=== PATIENT | male | born 1955 | race Caucasian/White ===

== ENCOUNTER 2019-03-07 00:22 | Day surgery (SDC) | payer OTHER, SELFPAY ==
[2019-03-01 12:51] VITALS: BMI 33.8
[2019-03-07 06:34] VITALS: BP 139/84; PULSE 80; RESP 16; TEMP 37.1; O2SAT 97; BMI 33.7
[2019-03-07] MEDS: LACTATED RINGERS 1,000 ML 150 ML IV CONT (06:58)
[2019-03-07 06:59] LABS: Glucose Point of Care 110 (65-105)
--- NOTE | 2019-03-07 07:21 | WPDANESEPPF ---
Anes - Initial Pre Proc Eval Procedure: Operation Date: 03/07/19 07:30 Proposed Procedures p Esophagogastroduodenoscopy - David Rehman MD Date/Time: 03/07/19 07:21 Surgeon: David Rehman MD Pre Op Diagnosis: dysphagia Patient Data Age: 63 Gender: M Height: 5 ft 10 in Weight: 106.6 kg Last Vital Signs Temp 98.7 F 03/07/19 06:34 Pulse 80 03/07/19 06:34 Resp 16 03/07/19 06:34 BP 139/84 03/07/19 06:34 Pulse Ox 97 03/07/19 06:34 Allergies Allergy/AdvReac Type Severity Reaction Status Date / Time animal dander Allergy Unknown Sneezing Verified 03/07/19 06:31 atenolol Allergy Unknown cough Verified 03/07/19 06:31 codeine Allergy Unknown headache Verified 03/07/19 06:31 morphine AdvReac Unknown Headache Verified 03/07/19 06:31 Home Medications Medication Instructions Recorded Confirmed Type tadalafil 5 mg tablet 5 mg PO DAILY #90 tablet 01/02/19 03/01/19 Rx testosterone cypionate 200 mg/mL 200 mg IM MONTHLY #1 ml 01/11/19 03/01/19 Rx intramuscular oil amlodipine 5 mg tablet 5 mg PO DAILY 02/07/19 03/07/19 History fenofibrate 160 mg tablet 160 mg PO DAILY 02/07/19 03/07/19 History irbesartan 300 1 tablet PO DAILY 02/07/19 03/07/19 History mg-hydrochlorothiazide 12.5 mg tablet apple cider vinegar 600 mg capsule 600 mg PO DAILY 02/14/19 03/07/19 History aspirin 81 mg tablet,delayed 81 mg PO DAILY 02/14/19 03/07/19 History release budesonide-formoterol HFA 160 2 inhalation INHALATION ONCE 02/14/19 03/07/19 History mcg-4.5 mcg/actuation aerosol inhaler esomeprazole magnesium 20 mg 20 mg PO DAILY 02/14/19 03/07/19 History capsule,delayed release [id number]-[id number] 200 mcg-lycop 1 tablet PO DAILY 02/14/19 03/01/19 History 175 mcg-lutei 250 mcg-herb 178 tablet omega-3 fatty acids-fish oil 360 2 cap PO BID 02/14/19 03/01/19 History mg-1,200 mg capsule metformin 500 mg tablet,extended 500 mg PO DAILY #90 tablet 02/17/19 03/01/19 Rx release 24 hr fluticasone propionate [Flonase 1 spray INTRANASAL BID 03/01/19 03/07/19 History Allergy Relief] Laboratory Tests 03/07/19 06:54 POC Capillary Glucose 110 mg/dl mg/dl (65-105) Patient hx anesthesia problems: none Family hx anesthesia problems: none PMFSH Past Medical History Medical History (Updated 03/07/19 @ 07:19 by Chris Serrano MD) Biceps muscle tear (~09/2015) Carpal tunnel syndrome (~04/2016) Diabetes Essential (primary) hypertension Obstructive sleep apnea (adult) (pediatric) Surgical History Surgical History (Updated 02/14/19 @ 11:16 by Jean Claude Kimble MD) H/O hernia repair History of knee surgery (~04/2018) Right knee arthroscopy in 2019 for meniscal tear Social History Social History Smoking status: Former smoker Smoking end date: 07/29/17 Additional smoking assessment comments: smoked for 40 years endinfg in 2018 Alcohol intake: current Anes - Eval Final PreProcedure Day of Procedure 03/07/19 07:21 Patient weight: obese Heart: regular rate and rhythm Lungs: clear to auscultation Airway: Mallampati scale class II Neurological: alert and oriented Last oral intake: >/= 8 hours ASA classification: III Emergent: no Anesthetic plan: proceed Anesthesia type and monitoring: general GIVS and standard monitoring Informed Consent: The patient's anesthetic plan and its attendant risks and benefits were discussed with the patient/family/POA. Questions were solicited and answers provided to the satisfaction of the patient/family/POA.
[2019-03-07] MEDS: BENZOCAINE (*SP) 60 ML SPRAY CAN (HURRICAINE) 1 SPRAY MUCOUS MEM (07:32)
[2019-03-07 07:47] VITALS: BP 123/77; PULSE 87; RESP 18; O2SAT 95
--- NOTE | 2019-03-07 07:47 | WPDGICN ---
Assessment and Plan Additional Plan This is a 63-year-old white male patient seen in evaluation at the request of Dr. Lee. Patient reports difficulty swallowing for several months. He states food will catch in the right side of his throat. Pills will often have to be regurgitated rather than swallowed. Patient denies any bleeding or weight loss. Symptoms briefly improved after antibiotics for an infected tooth. He states that it is not a consistent problem in occurs intermittently. Patient notices a modest discomfort on the right side of his throat. Family history is significant for colon polyps. Patient had a colonoscopy 1 year ago. And then again 10 years ago. He has never had an endoscopy previously. Past medical history is significant for diabetes hypertension. Medications include metformin, amlodipine, hydrochlorothiazide, Symbicort, Nexium, Flonase, fish oil. Physical exam reveals him to be alert. Oriented x3. Vital signs stable. HEENT exam unremarkable. Lungs are clear to auscultation and percussion. Heart is without murmur or extra sounds. Abdominal exam bowel sounds are present soft nontender with no hepatosplenomegaly. Rectal exam is deferred today Impression 1. Dysphagia. Plan is to proceed with EGD to assess difficulty swallowing. GI Consult Note Consult date/time: 03/07/19 07:47 HPI: Nabil Monson is a 63 year old male [facility] Past Medical History Medical History (Updated 03/07/19 @ 07:19 by Chris Serrano MD) Biceps muscle tear (~09/2015) Carpal tunnel syndrome (~04/2016) Diabetes Essential (primary) hypertension Obstructive sleep apnea (adult) (pediatric) Surgical History Surgical History (Updated 02/14/19 @ 11:16 by Jean Claude Kimble MD) H/O hernia repair History of knee surgery (~04/2018) Right knee arthroscopy in 2019 for meniscal tear Social History Social History Smoking status: Former smoker Smoking end date: 07/29/17 Additional smoking assessment comments: smoked for 40 years endinfg in 2018 Alcohol intake: current Meds Home Medications and Allergies Home Medications Medication Instructions Recorded Confirmed Type tadalafil 5 mg tablet 5 mg PO DAILY #90 tablet 01/02/19 03/01/19 Rx testosterone cypionate 200 mg/mL 200 mg IM MONTHLY #1 ml 01/11/19 03/01/19 Rx intramuscular oil amlodipine 5 mg tablet 5 mg PO DAILY 02/07/19 03/07/19 History fenofibrate 160 mg tablet 160 mg PO DAILY 02/07/19 03/07/19 History irbesartan 300 1 tablet PO DAILY 02/07/19 03/07/19 History mg-hydrochlorothiazide 12.5 mg tablet apple cider vinegar 600 mg capsule 600 mg PO DAILY 02/14/19 03/07/19 History aspirin 81 mg tablet,delayed 81 mg PO DAILY 02/14/19 03/07/19 History release budesonide-formoterol HFA 160 2 inhalation INHALATION ONCE 02/14/19 03/07/19 History mcg-4.5 mcg/actuation aerosol inhaler esomeprazole magnesium 20 mg 20 mg PO DAILY 02/14/19 03/07/19 History capsule,delayed release [id number]-oyr-urhbo 200 mcg-lycop 1 tablet PO DAILY 02/14/19 03/01/19 History 175 mcg-lutei 250 mcg-herb 178 tablet omega-3 fatty acids-fish oil 360 2 cap PO BID 02/14/19 03/01/19 History mg-1,200 mg capsule metformin 500 mg tablet,extended 500 mg PO DAILY #90 tablet 02/17/19 03/01/19 Rx release 24 hr fluticasone propionate [Flonase 1 spray INTRANASAL BID 03/01/19 03/07/19 History Allergy Relief] Allergies Allergy/AdvReac Type Severity Reaction Status Date / Time animal dander Allergy Unknown Sneezing Verified 03/07/19 06:31 atenolol Allergy Unknown cough Verified 03/07/19 06:31 codeine Allergy Unknown headache Verified 03/07/19 06:31 morphine AdvReac Unknown Headache Verified 03/07/19 06:31 Vital Signs Vital Signs - 24 hr 03/07/19 06:34 Temperature 37.1 C Pulse Rate 80 Respiratory Rate 16 Blood Pressure 139/84 Pulse Oximetry 97
[2019-03-07 07:57] VITALS: BP 113/60; PULSE 85; RESP 15; O2SAT 93
[2019-03-07 08:07] VITALS: BP 110/65; PULSE 79; RESP 14; O2SAT 95
[2019-03-07 08:48] LABS: Hematocrit 50.3 % (42.0-52.0); Mean Corpuscular HGB Conc 31.8 g/dl (32-36); Mean Corpuscular Hemoglobin 28.7 pg (26-34); Mean Corpuscular Volume 90.1 fl (80-100); Mean Platelet Volume 9.9 fl (7.4-10.4); Platelet Count Result 231 k/mm3 (150-375); Red Blood Count 5.58 M/mm3 (4.6-6.20); Red Cell Distribution Width 14.5 % (11.5-14.5)
--- NOTE | 2019-03-07 08:53 | SUR.PHASEII ---
Script for CT given to patient
[2019-03-07 09:01] LABS: Alanine Aminotransferase 39 U/L (4-50); Albumin Level 3.9 g/dL (3.5-5.1); Alkaline Phosphatase 46 U/L (38-126); Aspartate Amino Transferase 30 U/L (17-59); Bilirubin,Total 0.4 mg/dL (0.2-1.3); Blood Urea Nitrogen 26 mg/dL (9-20); Carbon Dioxide 24 mmol/L (22-30); Chloride 101 mmol/L (98-107); Estimated CRCL calculation 83 ml/min; Estimated Glomerular Filt Rate > 60; Glucose 117 mg/dL (75-110); Sodium 136 mmol/L (137-145)
== END 2019-03-07 08:53 | disposition home or self-care (01) ==
PROVIDERS: PCP Family Medicine; Visit Provider Internal Medicine Gastroenterology
PROC: 0DJ08ZZ Inspection of Upper Intestinal Tract, Via Natural or Artificial Opening Endoscopic (ICD-10-PCS; CPT 43235; principal; 2019-03-07 07:30)
DX: C15.5 Malignant neoplasm of lower third of esophagus (principal); I10 Essential (primary) hypertension; E11.9 Type 2 diabetes mellitus without complications; G47.33 Obstructive sleep apnea (adult) (pediatric); Z79.84 Long term (current) use of oral hypoglycemic drugs; Z87.891 Personal history of nicotine dependence; Z79.82 Long term (current) use of aspirin; E66.9 Obesity, unspecified; Z68.33 Body mass index [BMI] 33.0-33.9, adult
CPT/HCPCS: 43239; 36415; 80053; 85027; 88305; J2704; J7120

== ENCOUNTER 2019-03-14 14:33 | Outpatient (CLI) | payer OTHER, SELFPAY ==
--- NOTE | ~2019-03-14 | CT_ITS ---
EXAMINATION: CT chest abdomen w con INDICATION: Ulcerated 4 x 3 cm mass of the lower esophagus on recent endoscopy demonstrated to be poo rly differentiated adenocarcinoma at biopsy TECHNIQUE: Computed tomographic images of the chest and abdomen were obtained after the administratio n of 100 cc of Omnipaque 350 intravenous contrast. The dose-length product (DLP) was 924.33 mGy-cm. A utomated exposure control and iterative reconstruction technique were employed. COMPARISON: 04/12/2018 FINDINGS: CHEST: There is mild dependent atelectasis. The lungs are free of focal airspace opacities. Mild emph ysema is noted. There is mild wall thickening of the distal esophagus which likely corresponds to the known malignancy. No pathologically enlarged thoracic lymph nodes are identified. The heart size is normal. Calcified coronary artery atherosclerosis is noted. There is mild thoracic spondylosis. ABDOMEN: The liver, spleen, pancreas, gallbladder, and adrenal glands are normal. The kidneys are unr emarkable. There is a diverticulum of the second portion of the duodenum. There are no pathologically enlarged abdominal lymph nodes. There is calcified atherosclerosis of the aorta and many of the othe r arteries. There is no free intraperitoneal gas or evidence of bowel obstruction. IMPRESSION: 1. Mild wall thickening of the distal esophagus, corresponding to biopsy-proven malignancy. No eviden ce of metastatic disease. Reviewed, dictated and finalized at location A. [facility] [employer] SPECIALIST IMPRESSION: 1. Mild wall thickening of the distal esophagus, corresponding to biopsy-proven malignancy. No evidence of metastatic disease.
== END 2019-03-14 14:34 | disposition home or self-care (01) ==
PROVIDERS: PCP Family Medicine; Visit Provider Internal Medicine Gastroenterology
DX: K22.9 Disease of esophagus, unspecified (principal)
CPT/HCPCS: 71260; 74160; Q9967

== ENCOUNTER 2019-06-14 00:40 | Day surgery (SDC) | payer OTHER, SELFPAY ==
[2019-06-08 10:10] VITALS: BMI 31.6
--- NOTE | 2019-06-13 17:25 | WPDANESEPP ---
Anes - Eval Pre Procedure Procedure: Operation Date: 06/14/19 07:30 Proposed Procedures p Esophagogastroduodenoscopy - David Rehman MD Date/Time: 06/13/19 17:25 Surgeon: Sherie Preop Diagnosis: Esophageal CA Pre Op Diagnosis: esophageal CA Patient Data Age: 63 Gender: M Height: 5 ft 10 in Weight: 100 kg Allergies Allergy/AdvReac Type Severity Reaction Status Date / Time animal dander Allergy Unknown Sneezing Verified 06/08/19 10:24 codeine Allergy Unknown headache Verified 06/08/19 10:24 AMADEO Inhibitors AdvReac Mild Cough Verified 06/08/19 10:24 morphine AdvReac Unknown Headache Verified 06/08/19 10:24 Home Medications Medication Instructions Recorded Confirmed Type tadalafil 5 mg tablet 5 mg PO DAILY #90 tablet 01/02/19 06/08/19 Rx fenofibrate 160 mg tablet 160 mg PO DAILY 02/07/19 06/08/19 History esomeprazole magnesium 20 mg 20 mg PO DAILY 02/14/19 06/08/19 History capsule,delayed release metformin 500 mg tablet,extended 500 mg PO DAILY #90 tablet 02/17/19 06/08/19 Rx release 24 hr fluticasone propionate [Flonase 1 spray INTRANASAL BID 03/01/19 06/08/19 History Allergy Relief] ondansetron 8 mg disintegrating 8 mg PO Q8H 04/26/19 06/08/19 History tablet prochlorperazine maleate 10 mg 10 mg PO Q6H PRN 04/26/19 06/08/19 History tablet omega 2-jya-rqt-fish oil [Fish Oil] 1 cap PO DAILY 06/08/19 06/08/19 History Patient hx anesthesia problems: none Family hx anesthesia problems: none PMFSH Past Medical History Medical History Biceps muscle tear (~09/2015) BPH associated with nocturia Carpal tunnel syndrome (~04/2016) Diabetes Diabetes mellitus Dysphagia Esophageal cancer Essential (primary) hypertension Mixed hyperlipidemia Obstructive sleep apnea (adult) (pediatric) Port-A-Cath in place Tobacco use Surgical History Surgical History H/O hernia repair History of knee surgery (~04/2018) Right knee arthroscopy in 2019 for meniscal tear Family History Family History Sibling Family history of rheumatoid arthritis Heart disease Grandparent Diabetes mellitus Father Hypertension Cancer Social History Social History Smoking status: Former smoker Smoking end date: 07/29/17 Additional smoking assessment comments: smoked for 40 years endinfg in 2018 Alcohol intake: current Exam Day of Procedure 06/13/19 17:25
[2019-06-14] MEDS: LACTATED RINGERS 1,000 ML 150 ML IV CONT (06:32)
[2019-06-14 06:40] VITALS: BP 152/93; PULSE 81; RESP 16; TEMP 36.4; O2SAT 95; BMI 31.0
[2019-06-14 06:52] LABS: Glucose Point of Care 126 (65-105)
--- NOTE | 2019-06-14 07:09 | WPDANESEFPP ---
Anes - Eval Final PreProcedure Day of Procedure 06/14/19 07:09 Patient weight: obese Heart: regular rate and rhythm Lungs: decreased breath sounds Airway: Mallampati scale class II Neurological: alert and oriented Last oral intake: >/= 8 hours ASA classification: IV Emergent: no Anesthetic plan: proceed Anesthesia type and monitoring: general GIVS and standard monitoring Informed Consent: The patient's anesthetic plan and its attendant risks and benefits were discussed with the patient/family/POA. Questions were solicited and answers provided to the satisfaction of the patient/family/POA.
--- NOTE | 2019-06-14 07:55 | WPDGICN ---
Assessment and Plan Assessment and plan (1) Esophageal cancer, stage IV: Code(s): C15.9 - Malignant neoplasm of esophagus, unspecified Status: Acute Assessment and Plan: Patient now status post several rounds of chemotherapy and radiation therapy. Patient has current complaints of recurrent dysphagia. After history unknown stage IV adenocarcinoma distal esophagus. Plan is for follow-up EGD at this time continued follow-up with Oncology and Dr. Manolo Baptiste. advise further recommendations will be given after endoscopy. (2) Dysphagia: Qualifiers: Dysphagia type: other dysphagia Qualified Code(s): R13.19 - Other dysphagia Code(s): R13.10 - Dysphagia, unspecified Status: Acute GI Consult Note Consult date/time: 06/14/19 07:55 HPI: Nabil Monson is a 63 year old male Seen in evaluation at the request of Dr.G. Baptiste. Patient also followed by . Patient was identified as having adenocarcinoma the distal esophagus. Recently found to have bone metastases. He has received several cycles of chemotherapy and radiation therapy. Recently has had some difficulty swallowing with food catching the mid substernal portion of the chest. He denies any ongoing heartburn or reflux. At the current time he continues to take Nexium 40 mg p.o. daily. He states he has lost 20-30 lb. Initial diagnosis was March 07, 2019. Review of Systems Review of Systems: All systems reviewed & are unremarkable except as noted in HPI and below PMFSH Past Medical History Medical History Biceps muscle tear (~09/2015) BPH associated with nocturia Carpal tunnel syndrome (~04/2016) Diabetes Diabetes mellitus Dysphagia Esophageal cancer Essential (primary) hypertension Mixed hyperlipidemia Obstructive sleep apnea (adult) (pediatric) Port-A-Cath in place Tobacco use Surgical History Surgical History H/O hernia repair History of knee surgery (~04/2018) Right knee arthroscopy in 2019 for meniscal tear Family History Family History Sibling Family history of rheumatoid arthritis Heart disease Grandparent Diabetes mellitus Father Hypertension Cancer Social History Social History Smoking status: Former smoker Smoking end date: 07/29/17 Additional smoking assessment comments: smoked for 40 years endinfg in 2018 Alcohol intake: current Meds Home Medications and Allergies Home Medications Medication Instructions Recorded Confirmed Type tadalafil 5 mg tablet 5 mg PO DAILY #90 tablet 01/02/19 06/08/19 Rx fenofibrate 160 mg tablet 160 mg PO DAILY 02/07/19 06/08/19 History esomeprazole magnesium 20 mg 20 mg PO DAILY 02/14/19 06/08/19 History capsule,delayed release metformin 500 mg tablet,extended 500 mg PO DAILY #90 tablet 02/17/19 06/08/19 Rx release 24 hr fluticasone propionate [Flonase 1 spray INTRANASAL BID 03/01/19 06/08/19 History Allergy Relief] ondansetron 8 mg disintegrating 8 mg PO Q8H 04/26/19 06/08/19 History tablet prochlorperazine maleate 10 mg 10 mg PO Q6H PRN 04/26/19 06/08/19 History tablet omega 1-chr-cnf-fish oil [Fish Oil] 1 cap PO DAILY 06/08/19 06/08/19 History apixaban [Eliquis] mg 06/14/19 History Allergies Allergy/AdvReac Type Severity Reaction Status Date / Time animal dander Allergy Unknown Sneezing Verified 06/14/19 06:19 codeine Allergy Unknown headache Verified 06/14/19 06:19 AMADEO Inhibitors AdvReac Mild Cough Verified 06/14/19 06:19 morphine AdvReac Unknown Headache Verified 06/14/19 06:19 Vital Signs Vital Signs - 24 hr 06/14/19 06:40 Temperature 36.4 C Pulse Rate 81 Respiratory Rate 16 Blood Pressure 152/93 H Pulse Oximetry 95 Exam Narrative: Exam Narrative: Physical exam reveals patient be alert. Vital signs stable. HEENT exam unremarkable.
[2019-06-14 07:58] VITALS: BP 140/81; PULSE 78; RESP 14; O2SAT 93
[2019-06-14 08:08] VITALS: BP 137/79; PULSE 83; RESP 20; O2SAT 96
[2019-06-14 08:18] VITALS: BP 122/84; PULSE 73; RESP 18; O2SAT 97
== END 2019-06-14 08:39 | disposition home or self-care (01) ==
PROVIDERS: PCP Family Medicine; Visit Provider Internal Medicine Gastroenterology
PROC: 0DJ08ZZ Inspection of Upper Intestinal Tract, Via Natural or Artificial Opening Endoscopic (ICD-10-PCS; CPT 43235; principal; 2019-06-14 07:30)
DX: K22.2 Esophageal obstruction (principal); K22.10 Ulcer of esophagus without bleeding; K44.9 Diaphragmatic hernia without obstruction or gangrene; Z85.01 Personal history of malignant neoplasm of esophagus; N40.1 Benign prostatic hyperplasia with lower urinary tract symptoms; R35.1 Nocturia; E11.9 Type 2 diabetes mellitus without complications; I10 Essential (primary) hypertension; E78.2 Mixed hyperlipidemia; G47.33 Obstructive sleep apnea (adult) (pediatric); Z87.891 Personal history of nicotine dependence; Z79.84 Long term (current) use of oral hypoglycemic drugs; Z79.01 Long term (current) use of anticoagulants; Z92.21 Personal history of antineoplastic chemotherapy; Z92.3 Personal history of irradiation
CPT/HCPCS: 43450; 43239; 88305; J2704; J7120

== ENCOUNTER 2019-08-21 00:49 | Outpatient (CLI) | payer OTHER, SELFPAY ==
[2019-08-21 20:03] LABS: SARS-CoV-2 RNA PCR Negative
== END 2019-08-21 00:50 | disposition home or self-care (01) ==
LOC: ANHCOVIDDT 00:49
PROVIDERS: PCP Family Medicine; Visit Provider Internal Medicine Gastroenterology
DX: Z01.812 Encounter for preprocedural laboratory examination (principal); Z11.59 Encounter for screening for other viral diseases
CPT/HCPCS: 87635; C9803; U0003

== ENCOUNTER 2019-08-23 02:15 | Day surgery (SDC) | payer OTHER, SELFPAY ==
[2019-08-23 07:38] VITALS: BP 142/95; PULSE 76; RESP 18; TEMP 36.2; O2SAT 98; BMI 29.9
[2019-08-23 07:58] LABS: Glucose Point of Care 106 (65-105)
[2019-08-23] MEDS: LACTATED RINGERS 1,000 ML 150 ML IV CONT (08:08)
--- NOTE | 2019-08-23 08:22 | WPDGICN ---
Assessment and Plan Assessment and plan (1) Dysphagia: Qualifiers: Dysphagia type: other dysphagia Qualified Code(s): R13.19 - Other dysphagia Code(s): R13.10 - Dysphagia, unspecified Status: Acute Assessment and Plan: Patient has increasing difficulty swallowing. Plans for EGD to assess whether this is from tumor or scar tissue. Plans for dilatation. I have discussed with patient the potential for a ventral esophageal stent and/or PEG tube placement. Patient is not amenable to this at the present time. Plan is for soft diet till EGD can be accomplished. Continued oncology follow-up is advised as well. (2) Esophageal cancer, stage IV: Code(s): C15.9 - Malignant neoplasm of esophagus, unspecified Status: Acute GI Consult Note Consult date/time: 08/23/19 08:22 HPI: Nabil Monson is a 63 year old male seen in evaluation at the request of Dr Baptiste. patient has a history of distal esophageal adenocarcinoma. Stage IV disease been identified. Patient is felt to not be a surgical candidate at this time. Continued therapy under the direction of Dr. Baptiste is in progress. Over recent months has had increasing difficulty swallowing. Food catches in the mid substernal portion of the chest more often with chicken and meat. But sometimes with bread. Symptom he is able to eat easier if food is moist. He denies any current weight loss. He denies any significant pain. Patient presents today for surveillance EGD but also for possible dilatation of narrowing of distal esophagus. Review of Systems Review of Systems: All systems reviewed & are unremarkable except as noted in HPI and below PMFSH Social History Social History Smoking status: Former smoker Smoking end date: 07/29/17 Additional smoking assessment comments: smoked for 40 years endinfg in 2018 Alcohol intake: current Meds Home Medications and Allergies Home Medications Medication Instructions Recorded Confirmed Type tadalafil 5 mg tablet 5 mg PO DAILY #90 tablet 01/02/19 08/16/19 Rx esomeprazole magnesium 20 mg 20 mg PO DAILY 02/14/19 08/16/19 History capsule,delayed release metformin 500 mg tablet,extended 500 mg PO DAILY #90 tablet 02/17/19 08/16/19 Rx release 24 hr fluticasone propionate [Flonase 1 spray INTRANASAL BID 03/01/19 06/08/19 History Allergy Relief] ondansetron 8 mg disintegrating 8 mg PO Q8H 04/26/19 06/08/19 History tablet prochlorperazine maleate 10 mg 10 mg PO Q6H PRN 04/26/19 08/16/19 History tablet omega 7-aln-bkt-fish oil [Fish Oil] 1 cap PO DAILY 06/08/19 08/16/19 History fenofibrate 160 mg tablet 160 mg PO DAILY #90 tablet 07/18/19 08/16/19 Rx alpha lipoic acid 600 mg PO DAILY 08/16/19 08/23/19 History irbesartan-hydrochlorothiazide 1 tablet PO DAILY 08/16/19 08/16/19 History lysine [L-Lysine] 500 mg PO DAILY 08/16/19 08/16/19 History Allergies Allergy/AdvReac Type Severity Reaction Status Date / Time animal dander Allergy Unknown Sneezing Verified 08/23/19 07:58 codeine Allergy Unknown headache Verified 08/23/19 07:58 AMADEO Inhibitors AdvReac Mild Cough Verified 08/23/19 07:58 morphine AdvReac Unknown Headache Verified 08/23/19 07:58 Vital Signs Vital Signs - 24 hr 08/23/19 07:38 Temperature 97.2 F L Pulse Rate 76 Respiratory Rate 18 Blood Pressure 142/95 H Pulse Oximetry 98 Exam Narrative: Exam Narrative: On physical exam patient is alert. Vital signs stable. HEENT exam unremarkable. He is anicteric. Lungs are clear to auscultation and percussion. Heart is without murmur or extra sounds. Abdominal exam bowel sounds are present soft nontender with no hepatosplenomegaly.
--- NOTE | 2019-08-23 08:41 | P.PNAN_ITS ---
Anes - Initial Pre Proc Eval Procedure: Operation Date: 08/23/19 09:00 Proposed Procedures p Esophagogastroduodenoscopy - David Rehman MD Date/Time: 08/23/19 08:41 Surgeon: David Rehman MD Pre Op Diagnosis: Dysphagia, Esophageal Cancer Patient Data Age: 63 Gender: M Height: 5 ft 10 in Weight: 94.7 kg Last Vital Signs Temp 97.2 F L 08/23/19 07:38 Pulse 76 08/23/19 07:38 Resp 18 08/23/19 07:38 BP 142/95 H 08/23/19 07:38 Pulse Ox 98 08/23/19 07:38 Allergies Allergy/AdvReac Type Severity Reaction Status Date / Time animal dander Allergy Unknown Sneezing Verified 08/23/19 07:58 codeine Allergy Unknown headache Verified 08/23/19 07:58 AMADEO Inhibitors AdvReac Mild Cough Verified 08/23/19 07:58 morphine AdvReac Unknown Headache Verified 08/23/19 07:58 Home Medications Medication Instructions Recorded Confirmed Type tadalafil 5 mg tablet 5 mg PO DAILY #90 tablet 01/02/19 08/16/19 Rx esomeprazole magnesium 20 mg 20 mg PO DAILY 02/14/19 08/16/19 History capsule,delayed release metformin 500 mg tablet,extended 500 mg PO DAILY #90 tablet 02/17/19 08/16/19 Rx release 24 hr fluticasone propionate [Flonase 1 spray INTRANASAL BID 03/01/19 06/08/19 History Allergy Relief] ondansetron 8 mg disintegrating 8 mg PO Q8H 04/26/19 06/08/19 History tablet prochlorperazine maleate 10 mg 10 mg PO Q6H PRN 04/26/19 08/16/19 History tablet omega 1-xtg-goi-fish oil [Fish Oil] 1 cap PO DAILY 06/08/19 08/16/19 History fenofibrate 160 mg tablet 160 mg PO DAILY #90 tablet 07/18/19 08/16/19 Rx alpha lipoic acid 600 mg PO DAILY 08/16/19 08/23/19 History irbesartan-hydrochlorothiazide 1 tablet PO DAILY 08/16/19 08/16/19 History lysine [L-Lysine] 500 mg PO DAILY 08/16/19 08/16/19 History Laboratory Tests 08/23/19 07:56 POC Capillary Glucose 106 mg/dl mg/dl (65-105) Patient hx anesthesia problems: none Family hx anesthesia problems: none [facility] Social History Social History Smoking status: Former smoker Smoking end date: 07/29/17 Additional smoking assessment comments: smoked for 40 years endinfg in 2018 Alcohol intake: current Anes - Eval Final PreProcedure Day of Procedure 08/23/19 08:41 Patient weight: normal, cachectic and overweight Heart: regular rate and rhythm Lungs: clear to auscultation Airway: Mallampati scale class II Neurological: alert and oriented Last oral intake: >/= 8 hours ASA classification: III Emergent: no Anesthetic plan: proceed Anesthesia type and monitoring: general GIVS and standard monitoring Informed Consent: The patient's anesthetic plan and its attendant risks and benefits were discussed with the patient/family/POA. Questions were solicited and answers provided to the satisfaction of the patient/family/POA.
[2019-08-23] MEDS: BENZOCAINE (*SP) 60 ML SPRAY CAN (HURRICAINE) 1 SPRAY MUCOUS MEM (08:55)
[2019-08-23 09:12] VITALS: BP 153/91; PULSE 73; RESP 20; O2SAT 99
[2019-08-23 09:22] VITALS: BP 150/83; PULSE 63; RESP 20; O2SAT 99
[2019-08-23 09:32] VITALS: BP 134/87; PULSE 67; RESP 16; O2SAT 100
== END 2019-08-23 09:43 | disposition home or self-care (01) ==
PROVIDERS: PCP Family Medicine; Visit Provider Internal Medicine Gastroenterology
PROC: 0DJ08ZZ Inspection of Upper Intestinal Tract, Via Natural or Artificial Opening Endoscopic (ICD-10-PCS; CPT 43235; principal; 2019-08-23 09:00)
DX: K22.2 Esophageal obstruction (principal); C15.5 Malignant neoplasm of lower third of esophagus; K44.9 Diaphragmatic hernia without obstruction or gangrene; K22.10 Ulcer of esophagus without bleeding; Z87.891 Personal history of nicotine dependence; Z79.84 Long term (current) use of oral hypoglycemic drugs
CPT/HCPCS: 43239; 43450; 88305; J2704; J7120

== ENCOUNTER → 2019-12-20 09:39 | Outpatient (CLI) | payer OTHER, SELFPAY ==
--- NOTE | ~2019-12-20 | US_ITS ---
EXAMINATION: US venous doppler [facility] DATE: 12/20/2019 10:44 INDICATION: Lower limb pain TECHNIQUE: Jones scale images without and with compression and Doppler images of the bilateral lower e xtremity veins were obtained. COMPARISON: None FINDINGS: There is thrombosis of the profunda femoral vein, femoral vein, popliteal vein, peroneal trunk, and p osterior tibial veins. The common femoral vein and greater saphenous vein are patent. The left common femoral vein, profunda femoral vein, femoral vein, popliteal vein, peroneal trunk, po sterior tibial veins, and greater saphenous vein are patent. IMPRESSION: 1. Extensive deep venous thrombosis of the right lower extremity as detailed above. 2. No deep venous thrombosis of the left lower extremity. Reviewed, dictated and finalized at location A. [facility] [employer]SULT[employer] IMPRESSION: 1. Extensive deep venous thrombosis of the right lower extremity as detailed ab ove. 2. No deep venous thrombosis of the left lower extremity.
== END ==
PROVIDERS: PCP Family Medicine; Visit Provider Family Medicine
DX: M79.662 Pain in left lower leg (principal); I82.431 Acute embolism and thrombosis of right popliteal vein; I82.411 Acute embolism and thrombosis of right femoral vein; I82.441 Acute embolism and thrombosis of right tibial vein
CPT/HCPCS: 93970

== ENCOUNTER 2020-06-30 21:56 | Emergency (ER) | payer OTHER, SELFPAY ==
[2020-06-30 21:59] VITALS: BP 159/73; PULSE 78; RESP 18; TEMP 36.3; O2SAT 100
--- NOTE | 2020-06-30 22:08 | PC.NURSE ---
Pt presents to ED with complaints of lateral left thigh pain that radiates to medial left thigh. Pt states he has hx of blood clots to right thigh and pain is similar. Pt states he was diagnosed 5 months ago with blood clot to right thigh and has sense been taking 10mg xarelto daily. Pt rates pain 8/10 at this time and denies tx sloop captain, denies chest pain, sob, fever, chills, nvd. No swelling or red streaking noted to left thigh. Pt resting on cart with at bedside and stable vitals. Pt in no obvious distress, breathing even and unlabored and O2 saturation 98% on room air. Call button and personal items within reach. Pt advised to press call button for assistance.
--- NOTE | 2020-06-30 23:17 | ED.GENADULT ---
HPI - General Adult General Chief complaint: Extremity Problem,Nontraumatic Stated complaint: left leg pains Time Seen by Provider: 06/30/20 22:48 History of Present Illness HPI narrative: Patient is 64-year-old gentleman who presents the emergency department with chief complaint of left lower extremity pain. Patient reports he had 2 episodes of pain and cramping in his left lower extremity and the patient is concerned that he may have a DVT. 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 and is currently on Xarelto Related Data Home Medications Medication Instructions Recorded Confirmed fluticasone propionate [Flonase 1 spray INTRANASAL BID 03/01/19 06/25/20 Allergy Relief] omega 1-hhd-ouu-fish oil [Fish Oil] 1 cap PO DAILY 06/08/19 06/25/20 esomeprazole magnesium 20 mg 20 mg PO BID cap 10/16/19 06/25/20 capsule,delayed release multivitamin 1 tablet PO DAILY 06/25/20 06/25/20 Allergies Allergy/AdvReac Type Severity Reaction Status Date / Time animal dander Allergy Unknown Sneezing Verified 06/30/20 22:04 codeine Allergy Unknown headache Verified 06/30/20 22:04 AMADEO Inhibitors AdvReac Mild Cough Verified 06/30/20 22:04 morphine AdvReac Unknown Headache Verified 06/30/20 22:04 Review of Systems Review of Systems: Narrative: A 10 system review of systems was completed on the patient and is negative except for what is stated in the HPI. Nursing and ancillary documentation was reviewed. [facility] Past Medical History Medical History Biceps muscle tear (~09/2015) BPH associated with nocturia Carpal tunnel syndrome (~04/2016) Diabetes Diabetes mellitus Dysphagia Esophageal cancer Essential (primary) hypertension Mixed hyperlipidemia Obstructive sleep apnea (adult) (pediatric) Port-A-Cath in place Tobacco use Quit 07-29-18 Surgical History Surgical History H/O hernia repair History of knee surgery (~04/2018) Right knee arthroscopy in 2019 for meniscal tear Family History Family History Sibling Family history of rheumatoid arthritis Heart disease Grandparent Diabetes mellitus Father Hypertension Cancer Social History Social History Smoking status: Former smoker Smoking end date: 07/29/17 Additional smoking assessment comments: smoked for 40 years endinfg in 2018 Alcohol intake: current Exam Narrative: Exam Narrative: GENERAL: Well-appearing, well-nourished, and in no acute distress. HEAD: Normocephalic, atraumatic. EYES: PERRLA and EOMI. ENT: Nares clear, no rhinorrhea or epistaxis. Mucous membranes moist. NECK: Supple. CHEST: Clear to auscultation. No respiratory distress. HEART: Regular rate and rhythm. No murmur heard. Normal peripheral pulses. ABDOMEN: Soft, nontender, nondistended, normal active bowel sounds. EXTREMITIES: Normal range of motion. No edema. SKIN: Warm, dry, no rash. NEURO: No focal deficits. Alert and oriented x3. PSYCH: Normal mood and affect. Course Vital Signs Vital signs: Vital Signs Temperature 36.3 C L 06/30/20 21:59 Pulse Rate 78 06/30/20 21:59 Respiratory Rate 18 06/30/20 21:59 Blood Pressure 159/73 H 06/30/20 21:59 Pulse Oximetry 100 06/30/20 21:59 Temperature 36.3 C L 06/30/20 21:59 Pulse Rate 78 06/30/20 21:59 Respiratory Rate 18 06/30/20 21:59 Blood Pressure 159/73 H 06/30/20 21:59 Pulse Oximetry 100 06/30/20 21:59 Medical Decision Making Vital Signs Vital Signs: Vital Signs Temperature 36.3 C L 06/30/20 21:59 Pulse Rate 78 06/30/20 21:59 Respiratory Rate 18 06/30/20 21:59 Blood Pressure 159/73 H 06/30/20 21:59 Pulse Oximetry 100 06/30/20 21:59 Temperature 36.3 C L 06/30/20 21:59 Pulse Rate 78 06/30/20 21:59 Resp
[2020-06-30 23:29] LABS: Basophils Percent Auto 0.6 % (0.2-1.2); Eosinophils Absolute Auto 0.1 K/mm3 (0-0.3); Eosinophils Percent Auto 2.5 % (0-4.4); Hematocrit 41.8 % (42.0-52.0); Hemoglobin 13.6 g/dL (14.0-18.0); Immature Granulocyte Absolute 0.01 K/mm3 (0.00-0.031); Immature Granulocyte Percent A 0.2 % (0-0.5); Lymphocytes Absolute Auto 1.19 K/mm3 (0.9-3.2); Lymphocytes Percent Auto 23.3 % (18.3-44.2); Mean Corpuscular HGB Conc 32.5 g/dl (32-36); Mean Corpuscular Hemoglobin 30.1 pg (26-34); Mean Corpuscular Volume 92.5 fl (80-100); Mean Platelet Volume 9.8 fl (7.4-10.4); Monocytes Absolute Auto 0.5 K/mm3 (0.1-0.6); Monocytes Percent Auto 10.4 % (2.6-8.5); Neutrophils Absolute Auto 3.2 K/mm3 (1.3-6.7); Platelet Count Result 196 k/mm3 (150-375); Red Blood Count 4.52 M/mm3 (4.6-6.20); Red Cell Distribution Width 13.2 % (11.5-14.5); White Blood Count 5.1 K/mm3 (4.5-10.0)
[2020-06-30 23:40] LABS: Prothrombin Time 13.6 Seconds (11.1-14.7)
[2020-06-30 23:41] LABS: Partial Thromboplastin Time 26.4 SECONDS (22.3-36.8)
[2020-06-30 23:42] LABS: Alanine Aminotransferase 50 U/L (4-50); Alkaline Phosphatase 89 U/L (38-126); Anion Gap 5 mmol/L (8-16); Aspartate Amino Transferase 35 U/L (17-59); Bilirubin,Total 0.4 mg/dL (0.2-1.3); Blood Urea Nitrogen 24 mg/dL (9-20); Calcium 9.2 mg/dL (8.4-10.2); Carbon Dioxide 26 mmol/L (22-30); Chloride 108 mmol/L (98-107); Estimated CRCL calculation 74 ml/min; Estimated Glomerular Filt Rate > 60; Glucose 125 mg/dL (75-110); Potassium 4.1 mmol/L (3.4-5.0); Sodium 139 mmol/L (137-145)
--- NOTE | 2020-07-01 00:21 | PC.NURSE ---
Pt resting on cart in its lowest position with call button and personal items within reach. Pt denies all pain and discomfort at this time. EDMD presented to bedside to update pt and on poc. All questions and concerns addressed. Vitals are stable and pt in no obvious distress. Advised to return to hospital tomorrow morning for venous doppler and pt voices his understanding.
[2020-07-01 00:23] VITALS: BP 142/86; PULSE 74; RESP 18; TEMP 36.9; O2SAT 98
[2020-07-01 00:25] VITALS: BP 142/86; PULSE 74; RESP 18; TEMP 36.9; O2SAT 98
== END 2020-07-01 00:25 | disposition home or self-care (01) ==
PROVIDERS: Emergency Provider Emergency Medicine; PCP Family Medicine
DX: M79.605 Pain in left leg (principal); N40.1 Benign prostatic hyperplasia with lower urinary tract symptoms; R35.1 Nocturia; E11.9 Type 2 diabetes mellitus without complications; I10 Essential (primary) hypertension; E78.2 Mixed hyperlipidemia; G47.33 Obstructive sleep apnea (adult) (pediatric); Z85.01 Personal history of malignant neoplasm of esophagus; Z86.718 Personal history of other venous thrombosis and embolism; Z79.01 Long term (current) use of anticoagulants; Z87.891 Personal history of nicotine dependence
CPT/HCPCS: 36415; 80053; 85025; 85610; 85730; 99283

== ENCOUNTER 2020-07-01 07:27 | Outpatient (CLI) | payer OTHER, SELFPAY ==
--- NOTE | ~2020-07-01 | US_ITS ---
EXAMINATION: US venous doppler [facility] DATE: 07/01/2020 08:02 INDICATION: Left lower limb pain. TECHNIQUE: Grayscale ultrasound images without and with compression and Doppler ultrasound images of the left lower extremity veins were obtained. COMPARISON: Ultrasound 12/20/2019 FINDINGS: The visualized portions of left common femoral vein, profunda (deep) femoral vein, femoral vein, popl iteal vein, peroneal veins, posterior tibial veins, and greater saphenous vein outflow are patent. IMPRESSION: 1. No deep venous thrombosis. Reviewed, dictated and finalized at location A.
== END 2020-07-01 07:28 | disposition home or self-care (01) ==
PROVIDERS: PCP Family Medicine; Visit Provider Family Medicine
DX: M79.662 Pain in left lower leg (principal)
CPT/HCPCS: 93971

== ENCOUNTER 2020-10-27 12:56 | Emergency (ER) | payer OTHER, SELFPAY ==
[2020-10-27 13:03] VITALS: BP 141/81; PULSE 96; RESP 16; TEMP 36.8; O2SAT 98
--- NOTE | 2020-10-27 13:05 | ED.WOUNDLAC ---
HPI - Wound/Laceration General Chief Complaint: Wound/Laceration Stated Complaint: cut left hand Time Seen by Provider: 10/27/20 13:05 Source: patient and RN notes reviewed Mode of arrival: ambulatory Limitations: no limitations History of Present Illness HPI narrative: 64-year-old male presents to the [facility] with a laceration to the palmar aspect left hand. Cut hand on a vice/clamp. Last tDap 7 years ago Bleeding is controlled Related Data Home Medications Medication Instructions Recorded Confirmed fluticasone propionate [Flonase 1 spray INTRANASAL BID 03/01/19 09/18/20 Allergy Relief] omega 9-bdh-qpr-fish oil [Fish Oil] 1 cap PO DAILY 06/08/19 09/18/20 esomeprazole magnesium 20 mg 20 mg PO BID cap 10/16/19 09/18/20 capsule,delayed release multivitamin 1 tablet PO DAILY 06/25/20 09/18/20 cannabidiol 100 mg/mL oral solution 20 mg PO DAILY ml 09/18/20 09/18/20 magnesium 250 mg tablet 500 mg PO BID tablet 09/18/20 09/18/20 Allergies Allergy/AdvReac Type Severity Reaction Status Date / Time animal dander Allergy Unknown Sneezing Verified 09/18/20 09:42 codeine Allergy Unknown headache Verified 09/18/20 09:42 AMADEO Inhibitors AdvReac Mild Cough Verified 09/18/20 09:42 morphine AdvReac Unknown Headache Verified 09/18/20 09:42 Review of Systems Review of Systems: All systems reviewed & are unremarkable except as noted in HPI and below Constitutional: Constitutional: Reports no additional constitutional complaints, Denies chills and Denies fever(s) Eyes: Eyes: Reports no additional eye complaints ENT: Reports system reviewed and no additional complaints, except as documented Respiratory: Respiratory: Reports no additional respiratory complaints Musculoskeletal: Musculoskeletal: Reports no additional musculoskeletal complaints Integumentary/Breasts: Skin/Breast: Reports as per HPI Comments: Laceration palm left hand Neurologic: Reports system reviewed and no additional complaints, except as documented Psychiatric: Psychiatric: Reports no additional psychiatric complaints Allergic/Immunologic: Allergic/Immunologic: Reports no additional allergic/immunologic complaints PMFSH Past Medical History Medical History Biceps muscle tear (~09/2015) BPH associated with nocturia Carpal tunnel syndrome (~04/2016) Diabetes Diabetes mellitus Dysphagia Esophageal cancer Essential (primary) hypertension Mixed hyperlipidemia Obstructive sleep apnea (adult) (pediatric) Port-A-Cath in place Tobacco use Quit 07-29-18 Surgical History Surgical History H/O hernia repair History of knee surgery (~04/2018) Right knee arthroscopy in 2019 for meniscal tear Family History Family History Sibling Family history of rheumatoid arthritis Heart disease Grandparent Diabetes mellitus Father Hypertension Cancer Social History Social History Smoking status: Former smoker Smoking end date: 07/29/17 Additional smoking assessment comments: smoked for 40 years endinfg in 2018 Alcohol intake: current Alcohol use details: occasional Comments At the time of my signature, I reviewed and agree with the nursing past medical, surgical, social, and family history. There is no relevant family history pertinent to the patient complaint. Exam Const: General: healthy appearing, no acute distress and alert Nutritional Appearance: well nourished Orientation/consciousness: patient oriented x3 Limitations: no limitations HENMT: Head: normal to inspection Neck: Neck: normal visual inspection, no lymphadenopathy and no meningeal signs Chest: Chest palpation & inspection: normal inspection of the chest Resp: Effort & Inspection: normal respiratory effort Auscultation: clear to auscultation bilaterally Cardio: Rate: regular rate Rhythm: regular rhythm Back/Spine/Pe
[2020-10-27] MEDS: TETANUS,DIPHTHERIA,AC PERTUSSIS ADULT (0.5 ML) BOOSTRIX IM (13:18)
[2020-10-27] MEDS: LIDOCAINE HCL 1% LOCAL INJ 20 ML VIAL 5 ML INFILTRATE (13:31)
--- NOTE | 2020-10-27 13:32 | PC.NURSE ---
[employer].
== END 2020-10-27 13:45 | disposition home or self-care (01) ==
PROVIDERS: Emergency Provider Nurse Practitioner; PCP Family Medicine
DX: S61.412A Laceration without foreign body of left hand, initial encounter (principal); E11.9 Type 2 diabetes mellitus without complications; I10 Essential (primary) hypertension; E78.2 Mixed hyperlipidemia; Z23 Encounter for immunization; Z87.891 Personal history of nicotine dependence; W45.8XXA Other foreign body or object entering through skin, initial encounter
CPT/HCPCS: 12002; 90471; 90715; 99213; G0463

== ENCOUNTER 2021-01-30 02:26 | Day surgery (SDC) | payer OTHER, SELFPAY ==
[2021-01-22 11:03] VITALS: BMI 33.8
[2021-01-30 09:02] VITALS: BP 159/82; PULSE 74; RESP 16; TEMP 36.3; O2SAT 96; BMI 34.2
[2021-01-30 09:14] LABS: Glucose Point of Care 120 mg/dl (65-105)
[2021-01-30] MEDS: LACTATED RINGERS 1,000 ML 150 ML IV CONT (09:15)
--- NOTE | 2021-01-30 09:21 | WPDHPUPDATE1 ---
History and Physical Update Update Date/Time: 01/30/21 09:21 History and Physical has been reviewed, including an updated exam of the patient. There are NO changes in the patient's condition. Risks, benefits, and alternatives have been discussed and questions answered. Patient agrees to proceed with procedure.
--- NOTE | 2021-01-30 09:24 | WPDANESEPPF ---
Anes - Initial Pre Proc Eval Procedure: Operation Date: 01/30/21 10:00 Proposed Procedures p Esophagogastroduodenoscopy - David Rehman MD Date/Time: 01/30/21 09:24 Surgeon: David Rehman MD Pre Op Diagnosis: dysphagia, esophageal ca Patient Data Age: 65 Gender: M Height: 1.78 m Weight: 108.2 kg Last Vital Signs Temp 36.3 C L 01/30/21 09:02 Pulse 74 01/30/21 09:02 Resp 16 01/30/21 09:02 BP 159/82 H 01/30/21 09:02 Pulse Ox 96 01/30/21 09:02 Allergies Allergy/AdvReac Type Severity Reaction Status Date / Time animal dander Allergy Intermediate Sneezing Verified 01/30/21 09:00 codeine Allergy Intermediate headache Verified 01/30/21 09:00 morphine Allergy Intermediate Headache Verified 01/30/21 09:00 AMADEO Inhibitors AdvReac Mild Cough Verified 01/30/21 09:00 Home Medications Medication Instructions Recorded Confirmed Type fluticasone propionate [Flonase 1 spray INTRANASAL BID PRN 03/01/19 01/30/21 History Allergy Relief] esomeprazole magnesium 20 mg 40 mg PO DAILY cap 10/16/19 01/30/21 History capsule,delayed release rivaroxaban 20 mg tablet See Rx Instructions .ROUTE 08/20/20 01/30/21 Rx .COMPLEX #30 tablet tamsulosin 0.4 mg capsule 0.4 mg PO QHS #90 cap 09/18/20 01/30/21 Rx fenofibrate 160 mg tablet 160 mg PO DAILY #90 tablet 12/12/20 01/30/21 Rx Joint Health 1 cap PO DAILY 01/22/21 01/30/21 History Leo Multivitamin For Men 1 tab-cap PO DAILY 01/22/21 01/30/21 History amino ac-vit V-Dt-ukpencpz-hb9 1 tablet PO DAILY 01/22/21 01/30/21 History [Prostate Formula] cannabidiol 40 mg PO HS 01/22/21 01/30/21 History irbesartan-hydrochlorothiazide 0.5 tablet PO DAILY 01/22/21 01/30/21 History metformin 500 mg PO QPM 01/22/21 01/30/21 History mrcgo-8b-hrj-epa-fish oil-D3 3 cap PO DAILY 01/22/21 01/30/21 History tadalafil 5 mg PO HS 01/22/21 01/30/21 History Laboratory Tests 01/30/21 09:11 POC Capillary Glucose 120 mg/dl H mg/dl (65-105) Patient hx anesthesia problems: none Family hx anesthesia problems: none Results Review: All pre-operative results and documents have been reviewed as part of the pre-operative evaluation. PMFSH Past Medical History Medical History Arthritis of left wrist STT arthritis Biceps muscle tear (~09/2015) BPH associated with nocturia Carpal tunnel syndrome (~04/2016) Diabetes Diabetes mellitus Dysphagia Esophageal cancer Essential (primary) hypertension Mixed hyperlipidemia Obstructive sleep apnea (adult) (pediatric) Port-A-Cath in place Tobacco use Quit 07-29-18 Surgical History Surgical History H/O hernia repair History of knee surgery (~04/2018) Right knee arthroscopy in 2019 for meniscal tear Family History Family History Sibling Family history of rheumatoid arthritis Heart disease Grandparent Diabetes mellitus Father Hypertension Cancer Social History Social History Smoking packs per day: 3 Smoking cigarettes per day: 60.0 Years smoked: 40 Smoking pack-years: 120.00 Smoking status: Former smoker Tobacco type: cigarettes Smoking end date: 07/29/17 Additional smoking assessment comments: smoked for 40 years endinfg in 2018 Alcohol intake: current Alcohol use details: occasional Substance use: current Substance use type: marijuana Other substance usage details: GUMMIES NIGHTLY Gender identity (if verbalized by the patient): Male Spiritual care concerns: No Anes - Eval Final PreProcedure Day of Procedure 01/30/21 09:24 Patient weight: obese Heart: regular rate and rhythm Lungs: clear to auscultation and normal air movement Airway: Mallampati scale class II Neurological: alert and oriented Last oral intake: >/= 8 hours ASA classification: III Emergent: no Anesthetic plan: proceed
[2021-01-30] MEDS: BENZOCAINE (*SP) 60 ML SPRAY CAN (HURRICAINE) 1 SPRAY MUCOUS MEM (09:40)
[2021-01-30 09:57] VITALS: BP 119/81; PULSE 86; RESP 16; O2SAT 96
[2021-01-30 10:07] VITALS: BP 118/71; PULSE 86; RESP 20; O2SAT 95
--- NOTE | 2021-01-30 10:14 | SUR.PHASEII ---
Dr. Rehman advised patient and spouse to resume Xarelto on Wednesday02/01/21
[2021-01-30 10:17] VITALS: BP 112/74; PULSE 79; RESP 30; O2SAT 97
== END 2021-01-30 10:28 | disposition home or self-care (01) ==
PROVIDERS: PCP Family Medicine; Visit Provider Internal Medicine Gastroenterology
PROC: 0DJ08ZZ Inspection of Upper Intestinal Tract, Via Natural or Artificial Opening Endoscopic (ICD-10-PCS; CPT 43235; principal; 2021-01-30 10:00)
DX: R13.10 Dysphagia, unspecified (principal); K44.9 Diaphragmatic hernia without obstruction or gangrene; K21.00 Gastro-esophageal reflux disease with esophagitis, without bleeding; N40.1 Benign prostatic hyperplasia with lower urinary tract symptoms; R35.1 Nocturia; E11.9 Type 2 diabetes mellitus without complications; I10 Essential (primary) hypertension; E78.2 Mixed hyperlipidemia; G47.33 Obstructive sleep apnea (adult) (pediatric); Z87.891 Personal history of nicotine dependence; F12.90 Cannabis use, unspecified, uncomplicated; E66.9 Obesity, unspecified; Z68.34 Body mass index [BMI] 34.0-34.9, adult; Z79.01 Long term (current) use of anticoagulants; Z79.84 Long term (current) use of oral hypoglycemic drugs
CPT/HCPCS: 43239; 43450; 82948; 88305; J2704; J7120

== ENCOUNTER 2021-04-28 15:40 | Observation (INO) | payer OTHER, SELFPAY ==
[2021-04-28] VITALS (14 sets, daily range): BP systolic 130–142; BP diastolic 73–88; PULSE 91–104; RESP 14–18; TEMP 36.5–36.8; O2SAT 92–97
[2021-04-28 16:07] LABS: Basophils Percent Auto 0.1 % (0.2-1.2); Hematocrit 41.1 % (42.0-52.0); Hemoglobin 13.5 g/dL (14.0-18.0); Immature Granulocyte Absolute 0.03 K/mm3 (0.00-0.031); Immature Granulocyte Percent A 0.3 % (0-0.5); Lymphocytes Absolute Auto 0.99 K/mm3 (0.9-3.2); Lymphocytes Percent Auto 9.4 % (18.3-44.2); Mean Corpuscular HGB Conc 32.8 g/dl (32-36); Mean Corpuscular Hemoglobin 29.4 pg (26-34); Mean Corpuscular Volume 89.5 fl (80-100); Mean Platelet Volume 9.7 fl (7.4-10.4); Monocytes Absolute Auto 0.2 K/mm3 (0.1-0.6); Monocytes Percent Auto 2.1 % (2.6-8.5); Neutrophils Absolute Auto 9.3 K/mm3 (1.3-6.7); Neutrophils Percent Auto 88.1 % (45.5-73.1); Platelet Count Result 261 k/mm3 (150-375); Red Blood Count 4.59 M/mm3 (4.6-6.20); Red Cell Distribution Width 14.1 % (11.5-14.5); White Blood Count 10.5 K/mm3 (4.5-10.0)
[2021-04-28 16:17] LABS: INR 1.3; Lactic Acid Reflex 2.9 mmol/L (0.7-2.1)
[2021-04-28 16:18] LABS: Alanine Aminotransferase 46 U/L (4-50); Albumin Level 4.2 g/dL (3.5-5.1); Alkaline Phosphatase 96 U/L (38-126); Anion Gap 8 mmol/L (8-16); Aspartate Amino Transferase 51 U/L (17-59); Bilirubin,Total 0.6 mg/dL (0.2-1.3); Blood Urea Nitrogen 34 mg/dL (9-20); Calcium 8.9 mg/dL (8.4-10.2); Carbon Dioxide 22 mmol/L (22-30); Chloride 106 mmol/L (98-107); Estimated CRCL calculation 81 ml/min; Estimated Glomerular Filt Rate > 60; Glucose 194 mg/dL (65-110); Lipase 147 U/L (23-300); Partial Thromboplastin Time 32.2 SECONDS (22.3-36.8); Potassium 4.1 mmol/L (3.4-5.0); Sodium 136 mmol/L (137-145)
--- NOTE | 2021-04-28 16:19 | ED.ABDPAIN ---
HPI - Abdominal Pain General Chief Complaint: Abdominal Pain Stated Complaint: abnormal CT results Time Seen by Provider: 04/28/21 15:49 Source: RN notes reviewed History of Present Illness HPI narrative: Patient presents emergency department from home for acute appendicitis. Patient states he began to experience pain in his right lower quadrant starting last night he called his oncologist today ordered a CT scan of the abdomen pelvis done at [facility]. CT came back showing appendicitis and was instructed come to the emergency department. Pain began last night does not radiate described as sharp and stabbing states he has a history of esophageal cancer currently in remission for 1 year. Currently on Xarelto for blood clots in his legs last took last night Related Data Home Medications Medication Instructions Recorded Confirmed fluticasone propionate [Flonase 1 spray INTRANASAL BID PRN 03/01/19 03/10/21 Allergy Relief] esomeprazole magnesium 20 mg 40 mg PO DAILY cap 10/16/19 03/10/21 capsule,delayed release amino ac-vit U-Hl-uqmbkolw-hb9 1 tablet PO DAILY 01/22/21 03/10/21 [Prostate Formula] wwsjy-2k-dya-epa-fish oil-D3 3 cap PO DAILY 01/22/21 03/10/21 tadalafil 5 mg PO HS 01/22/21 03/10/21 Allergies Allergy/AdvReac Type Severity Reaction Status Date / Time animal dander Allergy Intermediate Sneezing Verified 04/28/21 16:15 codeine Allergy Intermediate headache Verified 04/28/21 16:15 morphine Allergy Intermediate Headache Verified 04/28/21 16:15 AMADEO Inhibitors AdvReac Mild Cough Verified 04/28/21 16:15 Review of Systems Review of Systems: Gen.: Denies fevers or chills Eyes: Denies eye pain or visual change ENT: Denies congestion Respiratory: Denies shortness of breath or cough CV: Denies chest pain or palpitations GI: See HPI Musculoskeletal: Denies back pain or muscle pain Neuro: Denies numbness, tingling, weakness or focal weakness Skin: Denies rash Except as documented, all other systems reviewed and negative [facility] Past Medical History Medical History Arthritis of left wrist STT arthritis Biceps muscle tear (~09/2015) BPH associated with nocturia Carpal tunnel syndrome (~04/2016) Diabetes Diabetes mellitus Dysphagia Esophageal cancer Essential (primary) hypertension Mixed hyperlipidemia Obstructive sleep apnea (adult) (pediatric) Port-A-Cath in place Tobacco use Quit 07-29-18 Surgical History Surgical History H/O hernia repair History of knee surgery (~04/2018) Right knee arthroscopy in 2019 for meniscal tear Family History Family History Sibling Family history of rheumatoid arthritis Heart disease Grandparent Diabetes mellitus Father Hypertension Cancer Social History Social History Smoking packs per day: 3 Smoking cigarettes per day: 60.0 Years smoked: 40 Smoking pack-years: 120.00 Smoking status: Former smoker Tobacco type: cigarettes Smoking end date: 07/29/17 Additional smoking assessment comments: smoked for 40 years endinfg in 2018 Alcohol intake: current Alcohol use details: occasional Substance use: current Substance use type: marijuana Other substance usage details: GUMMIES NIGHTLY Gender identity (if verbalized by the patient): Male Spiritual care concerns: No Exam Narrative: APPEARANCE: No acute distress, nontoxic, resting in bed HEENT: Normocephalic, atraumatic, OMM RESPIRATORY: No respiratory distress, clear to auscultation bilaterally with no rhonchi wheezing or rales CARDIOVASCULAR: RRR s murmur ABDOMINAL: Soft nondistended tender palpation right lower quadrant no tenderness right upper quadrant, left upper quadrant, left lower quadrant, no rebound or guarding MUSCULOSKELETAl: Moves all extremities. No clubbing, cyanosis or edema. NEURO: Awake
--- NOTE | 2021-04-28 17:04 | PM.CNGS ---
Assessment and Plan Assessment and plan (1) Acute appendicitis: Code(s): K35.80 - Unspecified acute appendicitis Status: Acute Assessment and Plan: CT findings show acute uncomplicated appendicitis. No evidence of perforation or abscess. I have discussed the patient's case and plan of care with Dr. Jurado. With the patient's multiple comorbidities, metastatic disease, and anticoagulation, he would be a very high risk surgical candidate. We would recommend trying conservative management with IV antibiotics and closely monitor to see how he progresses at this time. Continue IV Zosyn, IV antibiotics, analgesics, and monitor labs. We will also monitor with serial abdominal exams. There is a question of possible appendicolith on the CT report, which could increase risks of failing antibiotic therapy. We discussed risks of both conservative management and surgical intervention. The patient understands and agrees with the plan. Repeat labs tomorrow. Thank you for allowing us to see the patient in consultation and we will continue to follow along with you. (2) Esophageal cancer, stage IV: Code(s): C15.9 - Malignant neoplasm of esophagus, unspecified Status: Acute Assessment and Plan: Patient has hx of metastatic esophageal cancer with interval development of new findings on the CT scan concerning for metastatic disease. This increases his surgical risks. Will need to f/u with Oncology. See plan above. (3) Diabetes mellitus: Code(s): E11.9 - Type 2 diabetes mellitus without complications Status: Acute Assessment and Plan: Management per Hospitalist. Increases risks for surgery. (4) Anticoagulant long-term use: Code(s): Z79.01 - MCFP (current) use of anticoagulants Status: Acute Assessment and Plan: Hold Xarelto for now in case of need for surgery in the next 1-2 days if not responding well to antibiotics. Increases risks for surgery. (5) Lesion of adrenal gland: Code(s): E27.9 - Disorder of adrenal gland, unspecified Status: Acute Assessment and Plan: New lesion on left adrenal gland, liver, spine, and interval development of mediastinal and hilar lymphadenopathy noted on CT, concerning for metastatic disease. Discussed with patient. Will need to f/u with Oncology as an outpatient. (6) Liver lesion: Code(s): K76.9 - Liver disease, unspecified Status: Acute Assessment and Plan: New lesion on left anterior lobe noted on CT. Incidental finding. Discussed with patient. Will need to f/u with Oncology as an outpatient. (7) Fatty liver: Code(s): K76.0 - Fatty (change of) liver, not elsewhere classified Status: Acute (8) Obesity (BMI 30-39.9): Code(s): E66.9 - Obesity, unspecified Status: Acute (9) BPH associated with nocturia: Code(s): N40.1 - Benign prostatic hyperplasia with lower urinary tract symptoms; R35.1 - Nocturia Status: Acute History of Present Illness Consult details Consult date: 04/28/21 Reason for consult: other ( Acute appendicitis) Requesting physician: Haider Lutz DO Narrative: This is a 65-year-old male with a history of metastatic esophageal cancer, hypertension, type 2 diabetes mellitus, and BPH. He reports noticing an onset of mild right lower quadrant abdominal pain yesterday around 5:00 p.m.. He reports having discomfort with a right inguinal hernia in the past and this typically resolves when he manually reduces this. He initially thought the pain was related to his hernia. He tried to reduce this at home and realized the pain was in a different location and more in the right lower quadrant and the right inguinal area. The pain became more intense over the next few hours. He had taken Tylenol and aspirin, and his pain eventually improved. He reports his pain is aggravated by walking and bending, but it was very mild at rest so he monitored this at home. He was s
[2021-04-28] MEDS: SODIUM CHLORIDE 0.9% IV 1,000 ML 999 ML IV CONT (17:19)
[2021-04-28 19:05] LABS: Reflex Lactic Acid Yes or No Add Lactic
[2021-04-28 20:15] LABS: Add Urine Microscopic? YES; Appearance Urine Clear (Clear); Bilirubin Urine Negative (Negative); Blood Urine Negative (Negative); Color Urine Yellow (Yellow); Glucose Urine UA 3+ mg/dL (Negative); Ketones Urine Negative (Negative); Leukocyte Esterase Ur Negative LEU/UL (Negative); Nitrate Urine Negative (Negative); Protein Urine Negative (Negative); Squamous Epithelial Cell Urine Rare /hpf (Few); Urobilinogen Urine Negative mg/dL (<2.0); WBC Urine 0-3 /hpf
[2021-04-28 20:17] LABS: Lactic Acid 1.3 mmol/L (0.7-2.1)
[2021-04-28 20:18] LABS: Specific Grav Ur 1.039 (1.001-1.035)
--- NOTE | 2021-04-28 20:25 | PM.IMHP ---
H&P: HPI History of Present Illness Date/Time: Patient was placed observation status for expected length of stay less than 23 hours for management, will plan to re-evaluate tomorrow for improvement. 04/28/21 20:25 Chief Complaint: Abnormal CT scan at outside facility Narrative: Mr. Monson is a 65-year-old gentleman who has a known history of esophageal cancer which has been in remission for 1 year, hypertension, dyslipidemia, diabetes mellitus, deep vein thrombosis, and erectile dysfunction. Patient states he began having some mild right lower quadrant pain last evening but did not think much of it. Patient denies any nausea, vomiting, constipation, or diarrhea. Patient denied any fever chills. Patient states that when he would push on the area was mildly worse. Patient states he did ask his son at dinner where his appendix was not he was told on the right side. Patient states he still does not think anything of this discomfort and today went for a CT scan for his 6 month follow-up of esophageal cancer and incidentally was found to have appendicitis. Patient denies any chest discomfort, shortness breath, lightheadedness, dizziness, syncopal, or near syncopal episodes. Patient states he has no difficulty eating or drinking. Patient states that he has been feeling very well except for this mild to moderate right lower quadrant pain. Patient states he has been taking all medications without any difficulty. Patient is on Xarelto which he takes daily in the evening for history of DVT. Review of Systems Review of Systems: A 12 point review of systems was completed patient all pertinent positive and negative per HPI the remainder are unremarkable. PMFSH Past Medical History Medical History Arthritis of left wrist STT arthritis Biceps muscle tear (~09/2015) BPH associated with nocturia Carpal tunnel syndrome (~04/2016) Diabetes Diabetes mellitus Dysphagia Esophageal cancer Essential (primary) hypertension Mixed hyperlipidemia Obstructive sleep apnea (adult) (pediatric) Port-A-Cath in place Tobacco use Quit 07-29-18 Surgical History Surgical History (Updated 04/28/21 @ 17:22 by IRVING Freed) H/O hernia repair Inguinal hernia repair with mesh History of carpal tunnel release History of colonoscopy History of esophagogastroduodenoscopy (EGD) History of hand surgery surgery for trigger finger right hand History of knee surgery (~04/2018) Right knee arthroscopy in 2019 for meniscal tear History of surgery on arm Family History Family History Sibling Family history of rheumatoid arthritis Heart disease Grandparent Diabetes mellitus Father Hypertension Cancer Social History Social History Smoking packs per day: 3 Smoking cigarettes per day: 60.0 Years smoked: 40 Smoking pack-years: 120.00 Smoking status: Former smoker Tobacco type: cigarettes Smoking end date: 07/29/17 Additional smoking assessment comments: smoked for 40 years endinfg in 2018 Alcohol intake: current Alcohol use details: occasional Substance use: current Substance use type: marijuana Other substance usage details: GUMMIES NIGHTLY Gender identity (if verbalized by the patient): Male Spiritual care concerns: No Meds Home Medications and Allergies Home Medications Medication Instructions Recorded Confirmed Type fluticasone propionate [Flonase 1 spray INTRANASAL BID PRN 03/01/19 03/10/21 History Allergy Relief] esomeprazole magnesium 20 mg 40 mg PO DAILY cap 10/16/19 03/10/21 History capsule,delayed release tamsulosin 0.4 mg capsule 0.4 mg PO QHS #90 cap 09/18/20 03/10/21 Rx amino ac-vit G-Mp-ckhhxesh-hb9 1 tablet PO DAILY 01/22/21 03/10/21 History [Prostate Formula] usymg-6z-qei-epa-fish oil-D3 3 cap PO DAILY 01/22/21 03/10/21 History tadalafil 5 mg PO HS 01/22/21 03/10/21 Hist
--- NOTE | 2021-04-28 20:37 | ADMGEN ---
This patient, Nabil Monson, was admitted to Medical Room 247-. Patient/family oriented to hospital policies and general routines including ID bracelet, bed and alarms, visiting hours, pain management, procedures, bathroom and other care routines, personal items, smoking policy, room service/diet, and visiting hours. Information on how to activate the Rapid Response Team has been discussed. Patient/Family are encouraged to report perceived risks to care and to ask questions if they do not understand what they are told or what they should do.
[2021-04-28] MEDS: SODIUM CHLORIDE 0.9% IV 1,000 ML 125 ML IV CONT (20:57)
[2021-04-28 21:10] LABS: Glucose Point of Care 171 mg/dl (65-105)
[2021-04-29] VITALS (7 sets, daily range): BP systolic 136–160; BP diastolic 73–84; PULSE 68–96; RESP 16–22; TEMP 36.4–36.6; O2SAT 94–99
[2021-04-29] MEDS: SODIUM CHLORIDE 0.9% IV 1,000 ML 125 ML IV CONT ×3 (04:33→22:10)
[2021-04-29] MEDS: WATER FOR IRRIGATION, STERILE 1,000 ML BOTTLE 1000 ML (04:36)
[2021-04-29 05:58] LABS: Basophils Percent Auto 0.3 % (0.2-1.2); Eosinophils Percent Auto 0.3 % (0-4.4); Hematocrit 35.6 % (42.0-52.0); Hemoglobin 11.6 g/dL (14.0-18.0); Immature Granulocyte Absolute 0.04 K/mm3 (0.00-0.031); Immature Granulocyte Percent A 0.4 % (0-0.5); Lymphocytes Absolute Auto 1.79 K/mm3 (0.9-3.2); Lymphocytes Percent Auto 17.7 % (18.3-44.2); Mean Corpuscular HGB Conc 32.6 g/dl (32-36); Mean Corpuscular Hemoglobin 29.3 pg (26-34); Mean Corpuscular Volume 89.9 fl (80-100); Mean Platelet Volume 9.9 fl (7.4-10.4); Monocytes Absolute Auto 0.9 K/mm3 (0.1-0.6); Monocytes Percent Auto 8.6 % (2.6-8.5); Neutrophils Absolute Auto 7.4 K/mm3 (1.3-6.7); Neutrophils Percent Auto 72.7 % (45.5-73.1); Platelet Count Result 238 k/mm3 (150-375); Red Blood Count 3.96 M/mm3 (4.6-6.20); Red Cell Distribution Width 14.3 % (11.5-14.5); White Blood Count 10.1 K/mm3 (4.5-10.0)
[2021-04-29 06:10] LABS: Alanine Aminotransferase 40 U/L (4-50); Albumin Level 3.4 g/dL (3.5-5.1); Alkaline Phosphatase 77 U/L (38-126); Anion Gap 5 mmol/L (8-16); Aspartate Amino Transferase 33 U/L (17-59); Bilirubin,Total 0.2 mg/dL (0.2-1.3); Blood Urea Nitrogen 26 mg/dL (9-20); Calcium 8.1 mg/dL (8.4-10.2); Carbon Dioxide 25 mmol/L (22-30); Chloride 109 mmol/L (98-107); Estimated CRCL calculation 89 ml/min; Estimated Glomerular Filt Rate > 60; Glucose 117 mg/dL (65-110); Potassium 3.7 mmol/L (3.4-5.0); Sodium 139 mmol/L (137-145)
[2021-04-29 07:39] LABS: Glucose Point of Care 109 mg/dl (65-105)
--- NOTE | 2021-04-29 10:24 | PM.PNGS ---
Progress Note: A&P Assessment and Plan (1) Acute appendicitis: Code(s): K35.80 - Unspecified acute appendicitis Status: Acute Assessment and Plan: doing well c IV abx, will start diet, exam benign (2) Anticoagulant long-term use: Code(s): Z79.01 - alf (current) use of anticoagulants Status: Acute Assessment and Plan: cont to hold anticoagulation for now (3) Esophageal cancer, stage IV: Code(s): C15.9 - Malignant neoplasm of esophagus, unspecified Status: Acute Assessment and Plan: mgmt per oncologist at [facility] Subjective Subjective Date/Time Seen: 04/29/21 10:24 feels better today, no pain Review of Systems Review of Systems: All systems reviewed & are unremarkable except as noted in HPI and below Exam Const: General: cooperative, comfortable and no acute distress Orientation/consciousness: patient oriented x3 Resp: Effort & Inspection: normal respiratory effort Auscultation: clear to auscultation bilaterally Cardio: Rate: regular rate Rhythm: regular rhythm GI: Inspection: normal to inspection, non-distended and no incisions GI Palp: Yes Soft to palpation, No Tenderness to palpation present (GI), No Guarding due to palpation present (GI) and No Rigid due to palpation Objective Data Vital Signs Vital Signs: Vital Signs - 24 hr 04/28/21 15:50 04/28/21 16:20 04/28/21 16:30 Temperature 36.8 C Pulse Rate 104 H Respiratory Rate 18 Blood Pressure 130/85 Pulse Oximetry 97 96 97 04/28/21 16:47 04/28/21 17:00 04/28/21 17:27 Temperature Pulse Rate 102 H Respiratory Rate 16 Blood Pressure Pulse Oximetry 96 95 95 04/28/21 17:29 04/28/21 17:30 04/28/21 18:36 Temperature Pulse Rate 101 H Respiratory Rate 17 Blood Pressure 142/86 H Pulse Oximetry 95 94 92 04/28/21 18:45 04/28/21 19:00 04/28/21 19:15 Temperature Pulse Rate 94 Respiratory Rate 16 Blood Pressure 136/88 Pulse Oximetry 96 97 94 04/28/21 20:41 04/28/21 23:55 04/29/21 03:29 Temperature 36.5 C Pulse Rate 94 91 96 Respiratory Rate 14 Blood Pressure 133/73 Pulse Oximetry 96 95 94 04/29/21 03:30 04/29/21 04:49 Temperature 36.4 C Pulse Rate 75 Respiratory Rate 16 Blood Pressure 160/84 H Pulse Oximetry 94 98 Intake/Output Intake/Output: Intake & Output 04/26/21 04/27/21 04/28/21 04/29/21 22:59 23:59 23:59 23:59 Intake Total 1200 1350 Output Total 450 Balance 1200 900 Meds/Results Medications: Active Medications Generic Name Dose Route Start Last Admin Trade Name Freq PRN Reason Stop Dose Admin Dextrose 12.5 gm 04/28/21 20:37 Dextrose 50% 25 Gm/50 Ml Syringe IV PUSH PRN PRN Hypoglycemia Protocol Glucagon 1 mg 04/28/21 20:37 Glucagon For Inj 1 Mg Vial IM PRN PRN Hypoglycemia Protocol Glucose 15 gm 04/28/21 20:37 Glucose Oral Gel 15 Gm Of Glucse In 37.5 Gm Tube PO PRN PRN Hypoglycemia Protocol Piperacillin/Tazobactam/Dextrose 3.375 gm in 50 mls @ 100 mls/hr 04/28/21 23:00 04/29/21 05:03 Zosyn 3.375 Gm/D5w 50ml Pm IVPB Infused Q6H RADHA Infusion Sodium Chloride 1,000 mls @ 125 mls/hr 04/28/21 16:20 04/29/21 04:33 Normal Saline Iv IV CONT 125 mls/hr .Q8H RADHA Administration Dextrose 1,000 mls @ 100 mls/hr 04/28/21 20:37 Dextrose 5% 1,000 Ml IVPB PRN PRN Hypoglycemia Protocol Acetaminophen 1,000 mg in 100 mls @ 400 mls/hr 04/28/21 23:00 04/29/21 05:39 Ofirmev 1,000 Mg Ivpb IVPB 04/29/21 22:59 Infused Q6H PRN Infusion Pain Rated 4-6 Insulin Aspart 2 - 5 units 04/29/21 08:00 04/29/21 08:20 Insulin Aspart (*Bkc) 100 Units/Ml SUB-Q Not Given TIDWM RADHA Protocol Labs Labs: Laboratory Results - last 24 hr 04/28/21 04/28/21 04/28/21 16:00 16:00 16:00 WBC 10.5 H RBC 4.59 L Hgb 13.5 L Hct 41.1 L MCV 89.5 MCH 29.4 MCHC 32.8
--- NOTE | 2021-04-29 11:21 | PM.IMPN ---
Progress Note: A&P Assessment and Plan (1) Acute appendicitis: Code(s): K35.80 - Unspecified acute appendicitis Status: Acute Assessment and Plan: Incidental finding on routine CT scan. Abdominal examination is benign. Due to comorbidities patient Plan for conservative treatment with IV antibiotics. he was started on diet per General surgery who was consulted on admission. Continue to hold Xarelto in case he fails conservative management need surgery (2) Anticoagulant long-term use: Code(s): Z79.01 - snf (current) use of anticoagulants Status: Acute Assessment and Plan: Patient is on Xarelto for history of DVTs. This will be placed on hold at this time in case patient will need surgery for his appendix. If no surgery is needed Xarelto can be restarted. On conservative management but today continue hold Xarelto in case she does not on an need surgery (3) Diabetes mellitus: Code(s): E11.9 - Type 2 diabetes mellitus without complications Status: Acute Assessment and Plan: Patient takes metformin at home which was placed on hold. Will have blood glucose monitoring before meals and at bedtime with sliding scale insulin available. (4) Lesion of adrenal gland: Code(s): E27.9 - Disorder of adrenal gland, unspecified Status: Acute Assessment and Plan: New lesion on left adrenal gland, liver, spine, and interval development of mediastinal and hilar lymphadenopathy noted on CT, concerning for metastatic disease. Will need to f/u with Oncology as an outpatient. (5) Liver lesion: Code(s): K76.9 - Liver disease, unspecified Status: Acute Assessment and Plan: New lesion on left anterior lobe noted on CT. Incidental finding. Will need to f/u with Oncology as an outpatient. Subjective Date/time seen: 04/29/21 11:21 Interval history: HPI: Mr. Monson is a 65-year-old gentleman who has a known history of esophageal cancer which has been in remission for 1 year, hypertension, dyslipidemia, diabetes mellitus, deep vein thrombosis, and erectile dysfunction. Patient states he began having some mild right lower quadrant pain last evening but did not think much of it. Patient denies any nausea, vomiting, constipation, or diarrhea. Patient denied any fever chills. Patient states that when he would push on the area was mildly worse. Patient states he did ask his son at dinner where his appendix was not he was told on the right side. Patient states he still does not think anything of this discomfort and today went for a CT scan for his 6 month follow-up of esophageal cancer and incidentally was found to have appendicitis. Patient denies any chest discomfort, shortness breath, lightheadedness, dizziness, syncopal, or near syncopal episodes. Patient states he has no difficulty eating or drinking. Patient states that he has been feeling very well except for this mild to moderate right lower quadrant pain. Patient states he has been taking all medications without any difficulty. Patient is on Xarelto which he takes daily in the evening for history of DVT. 04/29/2021: feels okay. Mild discomfort in the right lower quadrant persist. he is going to eat today. No nausea vomiting denies any fever Exam Narrative: Constitutional: Patient is well-nourished in no acute distress. Patient is alert and oriented x3 HEENT: Moist mucous membranes. No scleral icterus. No lymphadenopathy. Neck: No carotid bruits noted no JVD noted Lungs: Lung sounds are clear to auscultation bilaterally. No accessory muscle use. No rhonchi, rales, or wheezes noted. Cardiovascular: Apical pulse is regular rate and rhythm. S1-S2 noted, no S3 or S4 noted. No gallops, murmurs, or rubs noted. Abdomen: Soft and round. mild tenderness at McBurney's point upon palpation. no rebound tenderness. No palpable masses. Extremities: No edema. Nontender. Skin: No rashes or lesions. Warm
[2021-04-29 11:26] LABS: Glucose Point of Care 113 mg/dl (65-105)
--- NOTE | 2021-04-29 14:06 | PC.NURSE ---
On 04/29/21 ALVARO Garcia assessed and documented in [facility]. I have assessed and reviewed the patient and documentation and agree with the care.
[2021-04-29 16:48] LABS: Glucose Point of Care 94 mg/dl (65-105)
[2021-04-29] MEDS: ACETAMINOPHEN 325 MG TABLET 650 MG PO (17:18)
[2021-04-29] MEDS: IBUPROFEN 600 MG TABLET PO (20:33)
[2021-04-29 23:33] LABS: Glucose Point of Care 107 mg/dl (65-105)
[2021-04-30 02:37] VITALS: PULSE 98; O2SAT 94
[2021-04-30] MEDS: IBUPROFEN 600 MG TABLET PO ×2 (03:32→09:46)
[2021-04-30 06:00] VITALS: BP 155/88; PULSE 62; RESP 20; TEMP 36.6; O2SAT 98
[2021-04-30 06:15] LABS: Basophils Percent Auto 0.5 % (0.2-1.2); Eosinophils Absolute Auto 0.1 K/mm3 (0-0.3); Hematocrit 37.4 % (42.0-52.0); Hemoglobin 11.7 g/dL (14.0-18.0); Immature Granulocyte Absolute 0.02 K/mm3 (0.00-0.031); Immature Granulocyte Percent A 0.3 % (0-0.5); Lymphocytes Absolute Auto 1.57 K/mm3 (0.9-3.2); Lymphocytes Percent Auto 24.3 % (18.3-44.2); Mean Corpuscular HGB Conc 31.3 g/dl (32-36); Mean Corpuscular Volume 92.6 fl (80-100); Mean Platelet Volume 9.7 fl (7.4-10.4); Monocytes Absolute Auto 0.7 K/mm3 (0.1-0.6); Monocytes Percent Auto 10.9 % (2.6-8.5); Platelet Count Result 232 k/mm3 (150-375); Red Blood Count 4.04 M/mm3 (4.6-6.20); Red Cell Distribution Width 14.6 % (11.5-14.5); White Blood Count 6.5 K/mm3 (4.5-10.0)
[2021-04-30 06:30] LABS: Alanine Aminotransferase 44 U/L (4-50); Albumin Level 3.4 g/dL (3.5-5.1); Alkaline Phosphatase 79 U/L (38-126); Anion Gap 5 mmol/L (8-16); Aspartate Amino Transferase 34 U/L (17-59); Bilirubin,Total 0.4 mg/dL (0.2-1.3); Blood Urea Nitrogen 19 mg/dL (9-20); Calcium 8.1 mg/dL (8.4-10.2); Carbon Dioxide 24 mmol/L (22-30); Chloride 110 mmol/L (98-107); Estimated CRCL calculation 89 ml/min; Estimated Glomerular Filt Rate > 60; Glucose 106 mg/dL (65-110); Potassium 3.7 mmol/L (3.4-5.0); Sodium 139 mmol/L (137-145)
[2021-04-30 07:18] LABS: Glucose Point of Care 110 mg/dl (65-105)
[2021-04-30] MEDS: SODIUM CHLORIDE 0.9% IV 1,000 ML 125 ML IV CONT (07:18)
[2021-04-30 08:29] VITALS: O2SAT 98
--- NOTE | 2021-04-30 09:30 | PM.PNGS ---
Progress Note: A&P Assessment and Plan (1) Acute appendicitis: Code(s): K35.80 - Unspecified acute appendicitis Status: Acute Assessment and Plan: Continues to clinically improve. WBC normal, tolerating a diet. Ok to discharge patient from our standpoint today. Switch to oral antibiotics on discharge for another 7 days. Follow-up with Dr. Jurado in 1 week. (2) Anticoagulant long-term use: Code(s): Z79.01 - senior care (current) use of anticoagulants Status: Acute Assessment and Plan: Okay to resume Xarelto. (3) Esophageal cancer, stage IV: Code(s): C15.9 - Malignant neoplasm of esophagus, unspecified Status: Acute Assessment and Plan: F/u with Oncology after discharge. Pt states he has an appointment set up with his Oncologist next Wednesday. Additional Plan I have discussed the patient's case and plan of care with Dr. Jurado. Patient had a negative colonoscopy in April of 2018. Can discuss recommendations for next colonoscopy at f/u visit if no plans for interval appendectomy depending on how patient progresses with abx. Subjective Subjective Date/Time Seen: 04/30/21 09:30 Patient reports: no new complaints, feels better, tolerating a regular diet, flatus, bowel movement and afebrile Interval history: Patient seen and examined. He denies abdominal pain, nausea, vomiting, or bloating. Bowels have moved multiple times yesterday and once this morning. No acute events overnight. Review of Systems Review of Systems: All systems reviewed & are unremarkable except as noted in HPI and below Exam Const: General: no acute distress and awake Orientation/consciousness: patient oriented x3 GI: Inspection: non-distended and no visible herniation GI Palp: Yes Soft to palpation, Yes Tenderness to palpation present (GI) (very mild TTP in RLQ, improved per patient), No Guarding due to palpation present (GI) and No Rebound tenderness present Auscultation: normal bowel sounds Neuro: General: moves all extremities and no focal motor deficits Extrem: General: normal to inspection and no clubbing, cyanosis or edema Psych: Insight: Good insight present (Psych) Judgement: Good judgement present (Psych) Objective Data Vital Signs Vital Signs: Vital Signs - 24 hr 04/29/21 14:00 04/29/21 22:00 04/29/21 23:50 Temperature 98 F 97.6 F Pulse Rate 70 68 89 Respiratory Rate 22 H 20 Blood Pressure 152/84 H 136/73 Pulse Oximetry 99 98 94 04/30/21 02:37 04/30/21 06:00 04/30/21 08:29 Temperature 97.8 F Pulse Rate 98 62 Respiratory Rate 20 Blood Pressure 155/88 H Pulse Oximetry 94 98 98 Intake/Output Intake/Output: Intake & Output 04/27/21 04/28/21 04/29/21 04/30/21 23:59 23:59 23:59 23:59 Intake Total 1200 4810 1989 Output Total 1925 2350 Balance 1200 2885 -360 Meds/Results Medications: Active Medications Generic Name Dose Route Start Last Admin Trade Name Freq PRN Reason Stop Dose Admin Acetaminophen 650 mg 04/29/21 11:45 04/29/21 17:18 Acetaminophen 325 Mg Tablet PO 650 mg Q6H PRN Administration pain Dextrose 12.5 gm 04/28/21 20:37 Dextrose 50% 25 Gm/50 Ml Syringe IV PUSH PRN PRN Hypoglycemia Protocol Glucagon 1 mg 04/28/21 20:37 Glucagon For Inj 1 Mg Vial IM PRN PRN Hypoglycemia Protocol Glucose 15 gm 04/28/21 20:37 Glucose Oral Gel 15 Gm Of Glucse In 37.5 Gm Tube PO PRN PRN Hypoglycemia Protocol Piperacillin/Tazobactam/Dextrose 3.375 gm in 50 mls @ 100 mls/hr 04/28/21 23:00 04/30/21 05:03 Zosyn 3.375 Gm/D5w 50ml Pm IVPB Infused Q6H RADHA Infusion Dextrose 1,000 mls @ 100 mls/hr 04/28/21 20:37 Dextrose 5% 1,000 Ml IVPB PRN PRN Hypoglycemia Protocol Ibuprofen 600 mg 04/29/21 18:05 04/30/21 03:32 Ibuprofen 600 Mg Tablet PO 600 mg Q6H PRN Administration shoulder pain Insulin Aspart 2 - 5 units 04/29/21 08:00 04/15
--- NOTE | 2021-04-30 10:41 | PM.DS ---
DS: Admitting Diagnosis Discharge Date 04/30/[address] scan at outside facility DS: Discharge Diagnosis Discharge Diagnosis (1) Acute appendicitis: Code(s): K35.80 - Unspecified acute appendicitis Status: Acute Assessment and Plan: Incidental finding on routine CT scan. Abdominal examination is benign. Plan to treat with iv antibiotics then transition to oral. Pt will take oral abx or 7 days and then follow in surgery clinic. (2) Anticoagulant long-term use: Code(s): Z79.01 - senior care (current) use of anticoagulants Status: Acute Assessment and Plan: No surgery indicated at this time. Xarelto can be restarted. (3) Diabetes mellitus: Code(s): E11.9 - Type 2 diabetes mellitus without complications Status: Acute Assessment and Plan: Restart home medication (4) Lesion of adrenal gland: Code(s): E27.9 - Disorder of adrenal gland, unspecified Status: Acute Assessment and Plan: New lesion on left adrenal gland, liver, spine, and interval development of mediastinal and hilar lymphadenopathy noted on CT, concerning for metastatic disease. Will need to f/u with Oncology as an outpatient. (5) Liver lesion: Code(s): K76.9 - Liver disease, unspecified Status: Acute Assessment and Plan: New lesion on left anterior lobe noted on CT. Incidental finding. Will need to f/u with Oncology as an outpatient. DS: Summary Hospital Course Hospital Course: Mr. Monson is a 65-year-old gentleman who has a known history of esophageal cancer which has been in remission for 1 year, hypertension, dyslipidemia, diabetes mellitus, deep vein thrombosis, and erectile dysfunction. Patient states he began having some mild right lower quadrant pain last evening but did not think much of it. Patient denies any nausea, vomiting, constipation, or diarrhea. Patient denied any fever chills. Patient states that when he would push on the area was mildly worse. Patient states he did ask his son at dinner where his appendix was not he was told on the right side. Patient states he still does not think anything of this discomfort and today went for a CT scan for his 6 month follow-up of esophageal cancer and incidentally was found to have appendicitis. Patient denies any chest discomfort, shortness breath, lightheadedness, dizziness, syncopal, or near syncopal episodes. Patient states he has no difficulty eating or drinking. Patient states that he has been feeling very well except for this mild to moderate right lower quadrant pain. Patient states he has been taking all medications without any difficulty. Patient is on Xarelto which he takes daily in the evening for history of DVT. Pt is not needing surgery can have IV abx and then can transition to oral abx. Time Spent with Patient Time attestation: Total time spent providing and/or coordinating discharge services:45 minutes on day of discharge Exam Narrative: Constitutional: Patient is well-nourished in no acute distress. Patient is alert and oriented x3 HEENT: Moist mucous membranes. No scleral icterus. No lymphadenopathy. Neck: No carotid bruits noted no JVD noted Lungs: Lung sounds are clear to auscultation bilaterally. No accessory muscle use. No rhonchi, rales, or wheezes noted. Cardiovascular: Apical pulse is regular rate and rhythm. S1-S2 noted, no S3 or S4 noted. No gallops, murmurs, or rubs noted. Abdomen: Soft and round. mild tenderness at McBurney's point upon palpation. no rebound tenderness. No palpable masses. Extremities: No edema. Nontender. Skin: No rashes or lesions. Warm and dry. Skin is intact. Neurological: No focal neurological deficits. Cranial nerves II-XII grossly intact. Psychiatric: Cooperative, appropriate mood, and affect DS: Data Data Completed and Pending Labs on day of discharge: Labs from last 24 hours 04/30/21 04/30/21 04/30/21 07:13
[2021-04-30 11:30] LABS: Glucose Point of Care 83 mg/dl (65-105)
== END 2021-04-30 12:04 | disposition home or self-care (01) ==
LOC: ANHED 16:23 → ANH2MED 21:33
PROVIDERS: Admitting Provider Internal Medicine; Emergency Provider Emergency Medicine; PCP Family Medicine; Visit Provider Internal Medicine
DX: K35.80 Unspecified acute appendicitis (principal); C15.9 Malignant neoplasm of esophagus, unspecified; R59.0 Localized enlarged lymph nodes; E27.9 Disorder of adrenal gland, unspecified; K76.9 Liver disease, unspecified; E11.9 Type 2 diabetes mellitus without complications; G47.33 Obstructive sleep apnea (adult) (pediatric); R35.1 Nocturia; E78.2 Mixed hyperlipidemia; I10 Essential (primary) hypertension; N40.1 Benign prostatic hyperplasia with lower urinary tract symptoms; K76.0 Fatty (change of) liver, not elsewhere classified; K40.90 Unilateral inguinal hernia, without obstruction or gangrene, not specified as recurrent; Z86.718 Personal history of other venous thrombosis and embolism; Z79.01 Long term (current) use of anticoagulants; E66.9 Obesity, unspecified; Z68.34 Body mass index [BMI] 34.0-34.9, adult; F12.90 Cannabis use, unspecified, uncomplicated; Z87.891 Personal history of nicotine dependence; Z79.84 Long term (current) use of oral hypoglycemic drugs
CPT/HCPCS: 36415; 80053; 81001; 82948; 83605; 83690; 85025; 85610; 85730; 87040; 96361; 96365; 96366; 96375; 96376; 99285; A9270; G0378; J0131; J2543; J7030

== ENCOUNTER 2021-05-11 18:29 | Observation (INO) | payer OTHER, SELFPAY ==
--- NOTE | ~2021-05-11 | CT_ITS ---
EXAMINATION: CT abdomen pelvis w con EXAM DATE: 05/11/2021 20:20 INDICATION: Right lower quadrant pain. Positive appendicitis 1-2 weeks ago. History of esophageal can cer. TECHNIQUE: Spiral CT of the abdomen and pelvis was performed following intravenous injection of 100 m L Omnipaque 350. Axial, coronal and sagittal images of the abdomen and pelvis were reviewed. The do se-length product (DLP) for this examination was 1191.98 mGy-cm. The exposure was tailored according to patient size (auto mA exposure control), and iterative reconstruction (ASIR) was used as addition al dose reduction technique. There is no prior study for comparison. FINDINGS: There is a left liver lobe peripherally enhancing region between the medial and lateral seg ments measuring 1.5 cm, was not present on prior study. There is hepatic steatosis. There is interval development of a left adrenal 2.4 x 1.7 cm mass. These 2 findings could indicate interval developmen t of metastatic disease. Gallbladder is unremarkable. No biliary obstruction. Portal and splenic veins are patent. Kidneys enhance symmetrically. There is no hydronephrosis. There is a 2 mm left inferior calyceal stone, pun ctate 1 mm left superior calyceal stone. No ureteral stones. The prostate is unremarkable. The blad umesh is unremarkable. There is no retroperitoneal or pelvic lymphadenopathy. There is moderate scat tered arteriosclerotic disease. Small left inguinal fat-containing hernia. The appendix is severely dilated and fluid-filled, measures 1.8 cm in diameter. There is a nonobstruc ting appendicolith laying the dependent aspect of appendix. There is mild inflammation surrounding th e tip of the appendix. On the sagittal sequence there is possible appendix wall thickening and enhanc ement near its origin (sagittal image 54/174); Could be carcinoid causing the obstruction of appendix . There is small sliding gastroesophageal hiatal hernia. There is colonic fluid, correlate for diarrhe a. No free intraperitoneal gas. The lung bases are unremarkable. There is osseous metastatic scl erotic, lytic L3 lesion measuring 3 cm, osseous metastatic disease. Smaller metastatic lesion within T12. These are new compared to previous exam. IMPRESSION: 1. Severely distended, fluid-filled appendix with nonobstructing appendicolith. 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 Mild inflammation along the tip of the appendix but not along other portions. Could be carcinoid with more chronically obstructed appendix but superimposed acute appendicitis also possible given inflammation near its tip. 2. Interval development of left adrenal 2.4 cm mass metastatic disease. 3. Interval development of peripherally enhancing left liver lobe region, could be metastatic. 4. Interval development of T12, L3 metastatic lesions. 5. Hepatic steatosis. 6. Left nephrolithiasis. 7. Colonic fluid, correlate for diarrhea. Reviewed, dictated and finalized at location G. IMPRESSION: 1. Severely distended, fluid-filled appendix with nonobstructing appendicolith . 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 Mild inflammation along the tip of the appendix but not along other portions. Could be carcinoid with more chroni alia obstructed appendix but superimposed acute appendicitis also possible giv en inflammation near its tip. 2. Interval development of left adrenal 2.4 cm mass metastatic disease. 3. Interval development of peripherally enhancing left liver lobe region, coul d be metastatic. 4. Interval development of T12, L3 metastatic lesions. 5. Hepatic steatosis. 6. Left nephrolithiasis. 7. Colonic fluid, correlate for diarrhea.
[2021-05-11 18:56] VITALS: BP 127/75; PULSE 109; RESP 14; TEMP 36.5; O2SAT 97
--- NOTE | 2021-05-11 19:18 | ED.ABDPAIN ---
HPI - Abdominal Pain General Chief Complaint: Abdominal Pain Stated Complaint: RLQ abd pain Time Seen by Provider: 05/11/21 19:05 Source: patient Mode of arrival: ambulatory Limitations: no limitations History of Present Illness HPI narrative: Patient is a 65-year-old male complaining of right lower quadrant pain, 8 out of 10, sharp, nonradiating started 1 week ago. Patient states that he was here a week ago was diagnosed with acute appendicitis, was treated with antibiotics, no surgery done, and discharge home. Patient states that his pain is worse today and was advised to return to the emergency room if his pain worsens. Patient denies any chest pain, shortness of breath, nausea, vomiting, diarrhea, urinary symptoms, fever or chills. Related Data Home Medications Medication Instructions Recorded Confirmed fluticasone propionate [Flonase 1 spray INTRANASAL BID PRN 03/01/19 05/07/21 Allergy Relief] esomeprazole magnesium 20 mg 20 mg PO BID cap 10/16/19 05/07/21 capsule,delayed release tadalafil 5 mg PO HS PRN 01/22/21 05/07/21 metformin 500 mg PO BID 04/28/21 05/07/21 Allergies Allergy/AdvReac Type Severity Reaction Status Date / Time animal dander Allergy Intermediate Sneezing Verified 05/11/21 19:03 codeine Allergy Intermediate headache Verified 05/11/21 19:03 morphine Allergy Intermediate Headache Verified 05/11/21 19:03 iohexol Allergy Diarrhea Verified 05/11/21 19:03 [From contrast - CT, X-RAY] AMADEO Inhibitors AdvReac Mild Cough Verified 05/11/21 19:03 Review of Systems Review of Systems: All systems reviewed & are unremarkable except as noted in HPI and below Constitutional: Constitutional: Denies body ache(s), Denies chills, Denies excessive sweating, Denies fatigue, Denies fever(s), Denies headache(s), Denies lethargy, Denies malaise, Denies weakness and Denies weight loss Eyes: Eyes: Denies blurry vision, Denies change in vision and Denies loss of vision ENT: Denies dizziness, Denies ear discharge, Denies headache(s), Denies lip swelling, Denies epistaxis, Denies nasal congestion, Denies neck pain, Denies throat swelling and Denies tongue swelling Cardiovascular: Cardiovascular: Denies chest pain, Denies chest pain at rest, Denies chest pain with activity, Denies diaphoresis, Denies rapid heart rate, Denies edema, Denies irregular heart rhythm, Denies lightheadedness, Denies palpitations, Denies dyspnea and Denies dyspnea on exertion Respiratory: Respiratory: Denies chest congestion, Denies cough, Denies hemoptysis, Denies dyspnea and Denies dyspnea on exertion Gastrointestinal: Gastrointestinal: Denies melena, Denies hematochezia, Denies diarrhea, Denies nausea, Denies vomiting and Denies hematemesis Musculoskeletal: Musculoskeletal: Denies abnormal gait, Denies deformity, Denies joint swelling, Denies limited range of motion, Denies neck pain and Denies numbness Neurologic: Denies Abnormal speech present, Denies abnormal gait, Denies confusion, Denies dizziness, Denies headache(s), Denies focal weakness, Denies loss of vision, Denies numbness, Denies Other visual disturbances, Denies Sensory deficit (Neuro) and Denies weakness Psychiatric: Psychiatric: Denies confusion, Denies depression, Denies auditory hallucinations, Denies homicidal ideation and Denies suicidal ideation Endocrine: Endocrine: Denies cold intolerance, Denies excessive sweating, Denies fatigue, Denies heat intolerance and Denies palpitations Hematologic/Lymphatic: Hematologic/Lymphatic: Denies easy bleeding and Denies easy bruising Allergic/Immunologic: Allergic/Immunologic: Denies lip swelling, Denies throat swelling and Denies tongue swelling PMFSH Past Medical History Medical History Arthritis of left wrist STT arthritis Biceps muscle tear (~09/2015) BPH associated with nocturia Carpal tunnel syndrome (~04/2016) Diabetes Diabetes mellitus Dysphagia Esophageal cancer Essential (primary) hypertension Mixed hyperlipidemia
[2021-05-11] MEDS: HYDROmorphone HCL INJ (*CRX) 1 MG/ML SYR (19:19)
[2021-05-11] MEDS: ONDANSETRON INJ 4 MG/2 ML VIAL (19:19)
[2021-05-11] MEDS: LACTATED RINGERS 1,000 ML 999 ML IV CONT (19:19)
[2021-05-11 19:53] LABS: Basophils Percent Auto 0.5 % (0.2-1.2); Eosinophils Absolute Auto 0.1 K/mm3 (0-0.3); Eosinophils Percent Auto 1.1 % (0-4.4); Hematocrit 40.8 % (42.0-52.0); Hemoglobin 13.1 g/dL (14.0-18.0); Immature Granulocyte Absolute 0.03 K/mm3 (0.00-0.031); Immature Granulocyte Percent A 0.4 % (0-0.5); Lymphocytes Absolute Auto 0.61 K/mm3 (0.9-3.2); Lymphocytes Percent Auto 7.2 % (18.3-44.2); Mean Corpuscular HGB Conc 32.1 g/dl (32-36); Mean Corpuscular Hemoglobin 28.9 pg (26-34); Mean Corpuscular Volume 90.1 fl (80-100); Mean Platelet Volume 9.6 fl (7.4-10.4); Monocytes Absolute Auto 0.6 K/mm3 (0.1-0.6); Monocytes Percent Auto 7.5 % (2.6-8.5); Neutrophils Percent Auto 83.3 % (45.5-73.1); Platelet Count Result 259 k/mm3 (150-375); Red Blood Count 4.53 M/mm3 (4.6-6.20); Red Cell Distribution Width 14.4 % (11.5-14.5); White Blood Count 8.4 K/mm3 (4.5-10.0)
[2021-05-11 20:00] LABS: Alanine Aminotransferase 30 U/L (4-50); Albumin Level 4.1 g/dL (3.5-5.1); Alkaline Phosphatase 88 U/L (38-126); Anion Gap 7 mmol/L (8-16); Aspartate Amino Transferase 35 U/L (17-59); Bilirubin,Total 0.6 mg/dL (0.2-1.3); Blood Urea Nitrogen 24 mg/dL (9-20); Calcium 8.4 mg/dL (8.4-10.2); Carbon Dioxide 24 mmol/L (22-30); Chloride 103 mmol/L (98-107); Estimated CRCL calculation 80 ml/min; Estimated Glomerular Filt Rate > 60; Glucose 137 mg/dL (65-110); Lipase 121 U/L (23-300); Sodium 134 mmol/L (137-145)
[2021-05-11 21:30] LABS: Add Urine Microscopic? NO; Appearance Urine Clear (Clear); Bilirubin Urine Negative (Negative); Blood Urine Negative (Negative); Color Urine Straw (Yellow); Glucose Urine UA Negative (Negative); Ketones Urine Negative (Negative); Leukocyte Esterase Ur Negative LEU/UL (Negative); Nitrate Urine Negative (Negative); Protein Urine Negative (Negative); Specific Grav Ur 1.025 (1.001-1.035); Urobilinogen Urine Negative mg/dL (<2.0)
[2021-05-11 21:37] LABS: Lactic Acid Reflex 1.1 mmol/L (0.7-2.1)
[2021-05-11 21:59] VITALS: BP 130/76; PULSE 95; RESP 17; O2SAT 95
[2021-05-11 22:41] VITALS: BP 130/78; PULSE 82; RESP 16; O2SAT 99
[2021-05-11 22:43] LABS: SARS-CoV-2 RNA PCR Negative
[2021-05-11] MEDS: HYDROmorphone HCL INJ (*CRX) 1 MG/ML SYR 0.5 MG IV PUSH (22:43)
[2021-05-11 22:45] VITALS: O2SAT 98
--- NOTE | 2021-05-11 22:47 | PC.NURSE ---
SBAR faxed to floor.
--- NOTE | 2021-05-11 23:29 | ADMGEN ---
This patient, Nabil Monson, was admitted to [facility] Surg Room 322-02. Patient/family oriented to hospital policies and general routines including ID bracelet, bed and alarms, visiting hours, pain management, procedures, bathroom and other care routines, personal items, smoking policy, room service/diet, and visiting hours. Information on how to activate the Rapid Response Team has been discussed. Patient/Family are encouraged to report perceived risks to care and to ask questions if they do not understand what they are told or what they should do.
[2021-05-12] VITALS (14 sets, daily range): BP systolic 131–173; BP diastolic 72–105; PULSE 71–107; RESP 15–20; TEMP 35.9–37.1; O2SAT 93–100
[2021-05-12] MEDS: LACTATED RINGERS 1,000 ML 125 ML IV CONT ×3 (00:39→20:17)
[2021-05-12] MEDS: HYDROmorphone HCL INJ (*CRX) 1 MG/ML SYR 0.5 MG IV PUSH ×4 (03:32→23:20)
--- NOTE | 2021-05-12 03:33 | PM.IMCN ---
Assessment and Plan Assessment and plan (1) Acute appendicitis: Qualifiers: Acute appendicitis type: with localized peritonitis Appendicitis abscess presence: without abscess Appendicitis gangrene presence: without gangrene Appendicitis perforation presence: without perforation Qualified Code(s): K35.30 - Acute appendicitis with localized peritonitis, without perforation or gangrene Code(s): K35.80 - Unspecified acute appendicitis Status: Acute (2) Chronic anticoagulation: Code(s): Z79.01 - [facility] (current) use of anticoagulants Status: Acute (3) Esophageal cancer, stage IV: Code(s): C15.9 - Malignant neoplasm of esophagus, unspecified Status: Acute (4) Diabetes mellitus: Qualifiers: Diabetes mellitus complication status: without complication Diabetes mellitus manager long term care insulin use: without manager long term care use Diabetes mellitus type: type 2 Qualified Code(s): E11.9 - Type 2 diabetes mellitus without complications Code(s): E11.9 - Type 2 diabetes mellitus without complications Status: Acute (5) Obstructive sleep apnea on CPAP: Code(s): G47.33 - Obstructive sleep apnea (adult) (pediatric); Z99.89 - Dependence on other enabling machines and devices Status: Acute Additional Plan The patient has recurrent acute appendicitis. Compared to report of the CT from an outside facility the appendix is more severely distant and fluid filled with nonobstructing a pendulous. 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 The remainder of findings on CT scan are consistent with patient's prior CT scan for his esophageal cancer with metastases. The patient is currently NPO and has been placed on antibiotic therapy with [facility] pharmacy to dose. The patient does take Xarelto due to history of a right internal jugular venous thrombus. His last dose of Xarelto was on the evening of the . His Xarelto is now on hold. Patient does have history of type 2 diabetes on oral medications. His oral medications are on hold. He is currently euglycemic. Will monitor Accu-Cheks q.6 hours with low-dose sliding scale insulin and hypoglycemia protocol as needed. Will hold the patient's oral PPI and place patient on Protonix IV q.12 hours He has essential hypertension. Initially his blood pressures were relatively stable. However this morning blood pressures have creeped up. Patient's oral antihypertensives are on hold. Will provide hydralazine 10 mg q.4 hours p.r.n. for uncontrolled blood pressure. Patient has been admitted as observation status. HPI Data of Consult Consult date: 05/12/21 Requesting Physician: Gareth Youngblood DO Primary Care Provider: Ronald Lee MD Consult Narrative Narrative: Nabil Monson is a 65 year old male with a past medical history of stage IV esophageal cancer, essential hypertension, diabetes, right internal jugular thrombus and BPH who presented to the ER with recurrent worsening abdominal pain. The patient had a routine follow-up CT scan for his esophageal cancer on the 28 of April. At that time CT demonstrated developing appendicitis. The patient was admitted to the hospital and treated conservatively with Zosyn he was discharged home on the with Levaquin and Flagyl. He reported that the time of his initial admission to the hospital he was only having mild right lower quadrant pain with direct palpation over McBurney's point. His pain completely resolved with antibiotic therapy. They reports yesterday evening when he was preparing food he began noticing right lower quadrant abdominal pain again. The pain would be relieved when he would flex up his leg at the hip. Pain was worse with palpation of right lower quadrant and was a 6/10 in intensity. He is in no distress at the time of my evaluation until palpation of the right lower quadrant. He reports some decreased appetite over the las
[2021-05-12 06:02] LABS: Glucose Point of Care 114 mg/dl (65-105)
[2021-05-12 06:27] LABS: Hematocrit 39.2 % (42.0-52.0); Hemoglobin 12.5 g/dL (14.0-18.0); Mean Corpuscular HGB Conc 31.9 g/dl (32-36); Mean Corpuscular Hemoglobin 29.2 pg (26-34); Mean Corpuscular Volume 91.6 fl (80-100); Mean Platelet Volume 9.4 fl (7.4-10.4); Platelet Count Result 222 k/mm3 (150-375); Red Blood Count 4.28 M/mm3 (4.6-6.20); Red Cell Distribution Width 14.6 % (11.5-14.5); White Blood Count 6.1 K/mm3 (4.5-10.0)
[2021-05-12 06:38] LABS: Potassium 4.1 mmol/L (3.4-5.0)
[2021-05-12 06:58] LABS: Anion Gap 3 mmol/L (8-16); Blood Urea Nitrogen 22 mg/dL (9-20); Calcium 8.1 mg/dL (8.4-10.2); Carbon Dioxide 28 mmol/L (22-30); Chloride 103 mmol/L (98-107); Estimated CRCL calculation 80 ml/min; Estimated Glomerular Filt Rate > 60; Glucose 123 mg/dL (65-110); Sodium 134 mmol/L (137-145)
[2021-05-12 08:07] LABS: Glucose Point of Care 117 mg/dl (65-105)
[2021-05-12] MEDS: PANTOPRAZOLE SODIUM IV 40 MG VIAL IV PUSH ×2 (08:45→20:09)
--- NOTE | 2021-05-12 11:28 | PC.NURSE ---
Pt scheduled for laparoscopic appendectomy today at 1500, consent signed.
[2021-05-12 11:39] LABS: Glucose Point of Care 116 mg/dl (65-105)
--- NOTE | 2021-05-12 12:47 | PCCCNOTE ---
On 05/12/21, the student, [Aleta Anton ], provided care and completed [facility] documentation on this patient. I have reviewed the student's documentation and agree with the findings.
--- NOTE | 2021-05-12 13:17 | PM.IMPN ---
Progress Note: A&P Assessment and Plan (1) Acute appendicitis: Qualifiers: Acute appendicitis type: with localized peritonitis Appendicitis abscess presence: without abscess Appendicitis gangrene presence: without gangrene Appendicitis perforation presence: without perforation Qualified Code(s): K35.30 - Acute appendicitis with localized peritonitis, without perforation or gangrene Code(s): K35.80 - Unspecified acute appendicitis Status: Acute Assessment and Plan: - General Surgery to operate today. - Will follow all recommendations post-operatively. - Treat any post-operative pain that the pt. may have. - Continue Zosyn (2) Chronic anticoagulation: Code(s): Z79.01 - [facility] (current) use of anticoagulants Status: Acute Assessment and Plan: - Secondary to Right IJ Thrombus. - Appreciate surgeries advice on when this can by continued. (3) Esophageal cancer, stage IV: Code(s): C15.9 - Malignant neoplasm of esophagus, unspecified Status: Acute Assessment and Plan: - Metastatic. Pt. is aware and sees Dr. Faraz Lane at [facility]. He had a recent PET scan and will be receiving the results this week. (4) Diabetes mellitus: Qualifiers: Diabetes mellitus type: type 2 Diabetes mellitus custodial insulin use: without long term care pharmacist use Diabetes mellitus complication status: without complication Qualified Code(s): E11.9 - Type 2 diabetes mellitus without complications Code(s): E11.9 - Type 2 diabetes mellitus without complications Status: Acute Assessment and Plan: - When eating, may resume diabetic diet. - Hypoglycemia protocol - Glucose checks AC and HS. - SSI (5) Obstructive sleep apnea on CPAP: Code(s): G47.33 - Obstructive sleep apnea (adult) (pediatric); Z99.89 - Dependence on other enabling machines and devices Status: Acute Assessment and Plan: - Continue CPAP therapy. Additional Plan 05/11/21 on admission: The patient has recurrent acute appendicitis. Compared to report of the CT from an outside facility the appendix is more severely distant and fluid filled with nonobstructing a pendulous. 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 The remainder of findings on CT scan are consistent with patient's prior CT scan for his esophageal cancer with metastases. The patient is currently NPO and has been placed on antibiotic therapy with [facility] pharmacy to dose. The patient does take Xarelto due to history of a right internal jugular venous thrombus. His last dose of Xarelto was on the evening of the . His Xarelto is now on hold. Patient does have history of type 2 diabetes on oral medications. His oral medications are on hold. He is currently euglycemic. Will monitor Accu-Cheks q.6 hours with low-dose sliding scale insulin and hypoglycemia protocol as needed. Will hold the patient's oral PPI and place patient on Protonix IV q.12 hours He has essential hypertension. Initially his blood pressures were relatively stable. However this morning blood pressures have creeped up. Patient's oral antihypertensives are on hold. Will provide hydralazine 10 mg q.4 hours p.r.n. for uncontrolled blood pressure. Patient has been admitted as observation status. Subjective Date/time seen: 05/12/21 1003 This pt. was examined at the bedside in interval assessment after there was a concern for possible Appendicitis on CT. This AM I consulted General Surgery and they advise that the patient is to have an Appendectomy this afternoon. He complains of pain only with jarring or palpation of the abdomen. He also denies any acute nausea or vomiting. It was discussed with him that the CT that he had back on 04/28 when he was here prior, showed concerns for recurrence of cancer in his liver, two different levels of vertebrae and also on his adrenals. This was discussed with th
--- NOTE | 2021-05-12 13:47 | PM.IMHP ---
H&P: HPI History of Present Illness Date/Time: 05/12/21 13:47 Chief Complaint: RLQ abdominal pain Narrative: Pt is a 65 y/o M well known to my service c h/o stage 4 esophageal cancer presenting to ED c recurrent RLQ abd pain. Pt had been admitted a few wks ago c similar symptoms and treated c IV abx for uncomplicated appendicitis. Pt reports in the interval he has been completely normal but started having recurrent pain yesterday. Pt reports poor appetite and sl nausea. Pt denies any f/c, changes in bowel habits. Imaging is significant for appendicitis c possible carcinoid. Review of Systems Constitutional: Constitutional: Reports as per HPI, Reports anorexia, Denies body ache(s), Denies chills, Reports fatigue, Denies fever(s), Denies headache(s), Denies increased appetite, Reports lethargy, Denies malaise, Reports poor appetite, Reports weakness, Denies weight gain and Denies weight loss Eyes: Eyes: Reports no additional eye complaints ENT: Reports system reviewed and no additional complaints, except as documented Cardiovascular: Cardiovascular: Reports no additional cardiovascular complaints Respiratory: Respiratory: Reports no additional respiratory complaints Gastrointestinal: Gastrointestinal: Reports as per HPI, Reports abdominal pain, Denies bloating, Denies change in bowel habits, Denies constipation, Reports GI cramping, Denies early satiety, Denies diarrhea, Reports nausea and Denies vomiting Genitourinary: Genitourinary: Reports no additional male genitourinary complaints Musculoskeletal: Musculoskeletal: Reports no additional musculoskeletal complaints Integumentary/Breasts: Skin/Breast: Reports system reviewed and no additional complaints, except as docu Neurologic: Reports system reviewed and no additional complaints, except as documented Psychiatric: Psychiatric: Reports no additional psychiatric complaints Endocrine: Endocrine: Reports no additional endocrine complaints Hematologic/Lymphatic: Hematologic/Lymphatic: Reports no additional hematologic/lymphatic complaints Allergic/Immunologic: Allergic/Immunologic: Reports no additional allergic/immunologic complaints PMFSH Past Medical History Medical History Arthritis of left wrist STT arthritis Biceps muscle tear (~09/2015) BPH associated with nocturia Carpal tunnel syndrome (~04/2016) Diabetes Diabetes mellitus Dysphagia Esophageal cancer (02/2019) Poorly differentiated adenocarcinoma stage IV. Managed at [facility]. With most recent April 2021 CT scan at [facility] demonstrating interval development of mediastinal hilar lymphadenopathy suspicious for metastatic disease. 2.5 cm left adrenal nodule also suspicious for metastatic disease. Interval development of lesion in the right aspect of L3 vertebral body suspicious for metastatic disease and enhancement anterior aspect left lobe of the liver new from prior exam. The patient's disease had previously been stable October 2020. Essential (primary) hypertension Hepatic steatosis Hiatal hernia Hypogonadism in male Internal jugular vein thrombosis (~04/2019) On chronic anticoagulation Mixed hyperlipidemia Obstructive sleep apnea (adult) (pediatric) Obstructive sleep apnea on CPAP Tobacco use Quit 6 Surgical History Surgical History H/O hernia repair Inguinal hernia repair with mesh History of carpal tunnel release History of colonoscopy History of esophagogastroduodenoscopy (EGD) History of hand surgery surgery for trigger finger right hand History of knee surgery (~04/2018) Right knee arthroscopy in 2019 for meniscal tear History of surgery on arm [place] in place Family History Family History Sibling Family history of rheumatoid arthritis Heart disease Grandparent Diabetes mellitus Father Hypertension Cancer Social History Social History (Reviewed 05/12/21 @ 1
[2021-05-12] MEDS: LACTATED RINGERS 1,000 ML 30 ML IV CONT (14:20)
--- NOTE | 2021-05-12 14:43 | WPDANESEPPF ---
Anes - Initial Pre Proc Eval Procedure: Operation Date: 05/12/21 15:15 Proposed Procedures p Laparoscopic Appendectomy - Abimbola Jurado MD Date/Time: 05/12/21 14:43 Surgeon: FADI Stark Pre Op Diagnosis: Acute appendicitis, chronic anticoagulation, diabe Patient Data Age: 65 Gender: M Height: 1.78 m Weight: 104.5 kg Last Vital Signs Temp 36.4 C 05/12/21 12:45 Pulse 90 05/12/21 12:45 Resp 19 05/12/21 12:45 BP 147/85 H 05/12/21 12:45 Pulse Ox 97 05/12/21 12:45 Allergies Allergy/AdvReac Type Severity Reaction Status Date / Time animal dander Allergy Intermediate Sneezing Verified 05/11/21 19:03 codeine Allergy Intermediate headache Verified 05/11/21 19:03 morphine Allergy Intermediate Headache Verified 05/11/21 19:03 iohexol Allergy Diarrhea Verified 05/11/21 19:03 [From contrast - CT, X-RAY] AMADEO Inhibitors AdvReac Mild Cough Verified 05/11/21 19:03 Home Medications Medication Instructions Recorded Confirmed Type esomeprazole magnesium 20 mg 40 mg PO BID cap 10/16/19 05/12/21 History capsule,delayed release tamsulosin 0.4 mg capsule 0.4 mg PO QHS #90 cap 09/18/20 05/11/21 Rx tadalafil 5 mg PO HS PRN 01/22/21 05/12/21 History irbesartan 150 1 tablet PO DAILY #90 tablet 03/10/21 05/11/21 Rx mg-hydrochlorothiazide 12.5 mg tablet metformin 500 mg PO BID 04/28/21 05/11/21 History Xarelto 20 mg PO DAILY 05/12/21 05/12/21 History Laboratory Tests 05/11/21 05/11/21 05/11/21 19:26 19:26 21:16 WBC 8.4 K/mm3 K/mm3 (4.5-10.0) RBC 4.53 M/mm3 L M/mm3 (4.6-6.20) Hgb 13.1 g/dL L g/dL (14.0-18.0) Hct 40.8 % L % (42.0-52.0) MCV 90.1 fl fl (80-100) MCH 28.9 pg pg (26-34) MCHC 32.1 g/dl g/dl (32-36) RDW 14.4 % % (11.5-14.5) Plt Count 259 k/mm3 k/mm3 (150-375) MPV 9.6 fl fl (7.4-10.4) Immature Gran % (Auto) 0.4 % % (0-0.5) Neut % (Auto) 83.3 % H % (45.5-73.1) Lymph % (Auto) 7.2 % L % (18.3-44.2) [place] % (Auto) 7.5 % % (2.6-8.5) Eos % (Auto) 1.1 % % (0-4.4) Baso % (Auto) 0.5 % % (0.2-1.2) Lymph # (Auto) 0.61 K/mm3 L K/mm3 (0.9-3.2) [place] # (Auto) 0.6 K/mm3 K/mm3 (0.1-0.6) Eos # (Auto) 0.1 K/mm3 K/mm3 (0-0.3) Baso # (Auto) 0.0 K/mm3 K/mm3 (0.0-0.1) Abs Immat Gran (auto) 0.03 K/mm3 K/mm3 (0.00-0.031) Absolute Neuts (auto) 7.0 K/mm3 H K/mm3 (1.3-6.7) Absolute Nucleated RBC 0.0 K/mm3 K/mm3 (0.0-0.012) Nucleated RBC % 0.0 % % (0.0-0.2) Sodium 134 mmol/L L mmol/L (137-145) Potassium 4.0 mmol/L mmol/L (3.4-5.0) Chloride 103 mmol/L mmol/L (98-107) Carbon Dioxide 24 mmol/L mmol/L (22-30) Anion Gap 7 mmol/L L mmol/L (8-16) BUN 24 mg/dL H mg/dL (9-20) Creatinine 1.00 mg/dL mg/dL (0.7-1.3) Estim Creat Clear Calc 80 ml/min ml/min Estimated GFR > 60 (59 - ) Glucose 137 mg/dL H mg/dL (65-110) POC Capillary Glucose Lactic Acid Calcium 8.4 mg/dL mg/dL (8.4-10.2) Total Bilirubin 0.6 mg/dL mg/dL (0.2-1.3) AST 35 U/L U/L (17-59) ALT 30 U/L U/L (4-50) Alkaline Phosphatase 88 U/L U/L (38-126) Total Protein 7.0 g/dL g/dL (6.3-8.2) Albumin 4.1 g/dL g/dL (3.5-5.1) Lipase 121 U/L U/L (23-300) Urine Color Straw (Yellow) Urine Appearance Clear (Clear) Urine pH 7.0 (5.0-9.0) Ur Specific [place] 1.025 (1.001-1.035) Urine Protein Negative mg/dL mg/dL (Negative) Urine Glucose (UA) Negative mg/dL mg/dL (Negative) Urine Ketones Negative mg/dL mg/dL (Negative) Ur Blood (Man) Negative (Negativ
--- NOTE | 2021-05-12 15:23 | WPDHPUPDATE1 ---
History and Physical Update Update Date/Time: 05/12/21 15:23 History and Physical has been reviewed, including an updated exam of the patient. There are NO changes in the patient's condition. Risks, benefits, and alternatives have been discussed and questions answered. Patient agrees to proceed with procedure.
--- NOTE | 2021-05-12 16:31 | P.OP_ITS ---
Procedure Note - Detailed Date of Procedure 05/12/21 Pre-op Diagnosis Acute appendicitis Post-op Diagnosis Other ( Acute appendicitis with appendiceal mass at tip) Procedure Performed laparoscopic appendectomy Surgeon Abimbola Jurado MD Anesthesia General Indications 65-year-old male with history of stage IV esophageal cancer presenting with recurrent acute appendicitis Findings acute appendicitis with massive dilation of the appendix and noted mass near t he tip of the appendix with omental adhesions Description of Procedure The patient was taken to the operating room and placed in the supine position. After adequate induction of general anesthesia, the patient was prepped and draped in the normal sterile fashion. A time-out was then done to verify the patient's identity, as well as the procedure being performed. I began by making a 5 mm incision in the infraumbilical region, through this a Veress needle was placed in the peritoneal cavity. CO2 gas was then insufflated and after adequate pneumoperitoneum was achieved the Veress needle was removed. Then placed a 5 mm Optiview trocar under direct visualization into the peritoneal cavity. I then insufflated through this trocar site and the endoscope was placed into the trocar. Under direct visualization, placed 2 further 5 mm suprapubic port as well as an additional 12 mm port in the left lower abdomen. At this point identified the cecum, I retracted the cecum both medially and superiorly allowing me to expose the appendix. The appendix was noted to be very dilated and inflamed especially towards the tip. The appendix was noted to be very adherent to the right lateral sidewall as well as the ileum. I was able to bluntly dissect the appendix from these adhesions. There was a dense amount of omental adhesions to the tip of the appendix. I then was able to locate the base of the appendix with the cecum. I created a window with the [place] dissector between the appendix itself and the mesoappendix. I then transected t he mesoappendix with a white vascular staple load. The Endo-MAKENZIE was then reloaded with a blue staple load and I transected the base of the appendix. I then took down the omental adhesions with vascular staple loads x 2. Once the specimen was completely detached, an endo-pouch was placed into the 12 mm port site and the specimen was removed through the endo-pouch. The appendiceal specimen will be sent to pathology for further review. I then copiously irrigated the right lower quadrant. Hemostasis was noted at all staple lines and no other obvious pathology was seen in this area. I then moved the camera to the suprapubic port to check our its port of entry. No iatrogenic injury or other pathology was noted in the upper abdomen. I then closed the 12 mm port site with a Guevara code and 0 Vicryl suture under direct visualization. At this point, the abdomen was desufflated and all ports were removed. All port sites were closed with 4 Monocryl subcuticular suture. Dermabond was placed on all wounds. The patient tolerated the procedure well and was extubated in the operating room postop. He will be sent to the recovery room in stable condition. Estimated Blood Loss 20 Urine Output 1,080 Drains No Packing No Pathology Yes Complications No immediate complications Condition Stable Disposition PACU
[2021-05-12] MEDS: fentaNYL CITRATE INJ (*CRX) 100 MCG/2 ML VIAL 25 MCG IV PUSH ×4 (16:44→17:22)
[2021-05-12 16:57] LABS: Glucose Point of Care 153 mg/dl (65-105)
--- NOTE | 2021-05-12 17:30 | SUR.PHASEI ---
Dr. Gonsalez aware of patient's BP. He is fine with patient going to to the floor without treatment at this time.
[2021-05-12] MEDS: ONDANSETRON INJ 4 MG/2 ML VIAL IV PUSH (20:07)
[2021-05-12] MEDS: HYDROcodone/acetaminophen (*CRX) 5-325 MG TABLET 1 TAB PO (20:07)
[2021-05-12 23:27] LABS: Glucose Point of Care 132 mg/dl (65-105)
[2021-05-13 00:53] VITALS: BP 156/92; PULSE 113; RESP 20; TEMP 37.1; O2SAT 94
[2021-05-13] MEDS: HYDROcodone/acetaminophen (*CRX) 5-325 MG TABLET 1 TAB PO ×2 (02:13→08:13)
[2021-05-13] MEDS: HYDROmorphone HCL INJ (*CRX) 1 MG/ML SYR 0.5 MG IV PUSH ×2 (04:49→12:25)
[2021-05-13] MEDS: LACTATED RINGERS 1,000 ML 125 ML IV CONT ×2 (04:50→05:46)
[2021-05-13 04:52] VITALS: O2SAT 99
[2021-05-13 05:58] LABS: Glucose Point of Care 136 mg/dl (65-105)
[2021-05-13 06:00] VITALS: BP 158/89; PULSE 95; RESP 18; TEMP 36.6; O2SAT 94
[2021-05-13 06:31] LABS: Basophils Percent Auto 0.2 % (0.2-1.2); Eosinophils Percent Auto 0.4 % (0-4.4); Hematocrit 40.8 % (42.0-52.0); Hemoglobin 13.2 g/dL (14.0-18.0); Immature Granulocyte Absolute 0.02 K/mm3 (0.00-0.031); Immature Granulocyte Percent A 0.2 % (0-0.5); Lymphocytes Absolute Auto 0.92 K/mm3 (0.9-3.2); Lymphocytes Percent Auto 10.8 % (18.3-44.2); Mean Corpuscular HGB Conc 32.4 g/dl (32-36); Mean Corpuscular Hemoglobin 29.8 pg (26-34); Mean Corpuscular Volume 92.1 fl (80-100); Mean Platelet Volume 9.6 fl (7.4-10.4); Monocytes Absolute Auto 0.8 K/mm3 (0.1-0.6); Monocytes Percent Auto 9.5 % (2.6-8.5); Neutrophils Absolute Auto 6.7 K/mm3 (1.3-6.7); Neutrophils Percent Auto 78.9 % (45.5-73.1); Platelet Count Result 250 k/mm3 (150-375); Red Blood Count 4.43 M/mm3 (4.6-6.20); Red Cell Distribution Width 14.6 % (11.5-14.5); White Blood Count 8.5 K/mm3 (4.5-10.0)
[2021-05-13 06:58] LABS: Alanine Aminotransferase 31 U/L (4-50); Albumin Level 3.8 g/dL (3.5-5.1); Alkaline Phosphatase 83 U/L (38-126); Anion Gap 5 mmol/L (8-16); Aspartate Amino Transferase 32 U/L (17-59); Bilirubin,Total 0.7 mg/dL (0.2-1.3); Blood Urea Nitrogen 13 mg/dL (9-20); Calcium 8.4 mg/dL (8.4-10.2); Carbon Dioxide 27 mmol/L (22-30); Chloride 104 mmol/L (98-107); Estimated CRCL calculation 80 ml/min; Estimated Glomerular Filt Rate > 60; Glucose 129 mg/dL (65-110); Magnesium 2.2 mg/dL (1.6-2.3); Potassium 4.1 mmol/L (3.4-5.0); Sodium 136 mmol/L (137-145)
[2021-05-13] MEDS: PANTOPRAZOLE SODIUM IV 40 MG VIAL IV PUSH (08:14)
--- NOTE | 2021-05-13 08:38 | WPDANESPN ---
Anes - Prog Note Post-Op Date/Time: 05/13/21 11:38 Cardiovascular status: normal Respiratory status: normal Airway patency: baseline Mental status: baseline Post-Op hydration status: normal Vital Signs: Last Vital Signs Temp 97.8 F 05/13/21 06:00 Pulse 95 05/13/21 06:00 Resp 18 05/13/21 06:00 BP 158/89 H 05/13/21 06:00 Pulse Ox 94 05/13/21 06:00 Pain Score (VAS): 9 I/O: Intake & Output 05/12/21 05/13/21 05/13/21 23:59 07:59 15:59 Intake Total 1650 2250 240 Output Total 1080 1400 800 Balance 570 850 -560 Laboratory Tests 05/13/21 06:06 05/13/21 06:06 05/12/21 05/12/21 05/12/21 11:32 16:54 23:24 WBC RBC Hgb Hct MCV MCH MCHC RDW Plt Count MPV Immature Gran % (Auto) Neut % (Auto) Lymph % (Auto) [place] % (Auto) Eos % (Auto) Baso % (Auto) Lymph # (Auto) [place] # (Auto) Eos # (Auto) Baso # (Auto) Abs Immat Gran (auto) Absolute Neuts (auto) Absolute Nucleated RBC Nucleated RBC % Sodium Potassium Chloride Carbon Dioxide Anion Gap BUN Creatinine Estim Creat Clear Calc Estimated GFR Glucose POC Capillary Glucose 116 H 153 H 132 H Calcium Magnesium Total Bilirubin AST ALT Alkaline Phosphatase Total Protein Albumin 05/13/21 05/13/21 05/13/21 05:38 06:06 06:06 WBC 8.5 RBC 4.43 L Hgb 13.2 L Hct 40.8 L MCV 92.1 MCH 29.8 MCHC 32.4 RDW 14.6 H Plt Count 250 MPV 9.6 Immature Gran % (Auto) 0.2 Neut % (Auto) 78.9 H Lymph % (Auto) 10.8 L Cors[place] % (Auto) 9.5 H Eos % (Auto) 0.4 Baso % (Auto) 0.2 Lymph # (Auto) 0.92 [place] # (Auto) 0.8 H Eos # (Auto) 0.0 Baso # (Auto) 0.0 Abs Immat Gran (auto) 0.02 Absolute Neuts (auto) 6.7 Absolute Nucleated RBC 0.0 Nucleated RBC % 0.0 Sodium 136 L Potassium 4.1 Chloride 104 Carbon Dioxide 27 Anion Gap 5 L BUN 13 D Creatinine 1.00 Estim Creat Clear Calc 80 Estimated GFR > 60 Glucose 129 H POC Capillary Glucose 136 H Calcium 8.4 Magnesium 2.2 Total Bilirubin 0.7 AST 32 ALT 31 Alkaline Phosphatase 83 Total Protein 7.0 Albumin 3.8 05/13/21 09:13 WBC RBC Hgb Hct MCV MCH MCHC RDW Plt Count MPV Immature Gran % (Auto) Neut % (Auto) Lymph % (Auto) [place] % (Auto) Eos % (Auto) Baso % (Auto) Lymph # (Auto) [place] # (Auto) Eos # (Auto) Baso # (Auto) Abs Immat Gran (auto) Absolute Neuts (auto) Absolute Nucleated RBC Nucleated RBC % Sodium Potassium Chloride Carbon Dioxide Anion Gap BUN Creatinine Estim Creat Clear Calc Estimated GFR Glucose POC Capillary Glucose 214 H Calcium Magnesium Total Bilirubin AST ALT Alkaline Phosphatase Total Protein Albumin Post-procedural complaints: none Patient Feedback: Patient satisfied with anesthetic care.
[2021-05-13 09:23] LABS: Glucose Point of Care 214 mg/dl (65-105)
--- NOTE | 2021-05-13 09:58 | PC.NURSE ---
this am accu check was not completed, pt already ate and drank. tech completed accu check after pt ate and only 214. will be rechecking accu check before lunch.
[2021-05-13 12:15] LABS: Glucose Point of Care 109 mg/dl (65-105)
--- NOTE | 2021-05-13 12:48 | PM.DS ---
DS: Admitting Diagnosis Discharge Date 05/13/2021 Admitting Diagnosis 1) Acute Appendicitis 2) Chronic Anticoagulation 3) Esophageal Cancer, Stage 4 4) Diabetes Mellitus 5) JOAN DS: Discharge Diagnosis Discharge Diagnosis (1) Acute appendicitis: Qualifiers: Acute appendicitis type: with localized peritonitis Appendicitis abscess presence: without abscess Appendicitis gangrene presence: without gangrene Appendicitis perforation presence: without perforation Qualified Code(s): K35.30 - Acute appendicitis with localized peritonitis, without perforation or gangrene Code(s): K35.80 - Unspecified acute appendicitis Status: Acute Assessment and Plan: - Laparoscopic Appendectomy yesterday per Dr. Jurado. - Tolerating solid food without difficulty currently. Initially had problems with liquids. - Pain controlled, stable for discharge at this time. (2) Chronic anticoagulation: Code(s): Z79.01 - terminal supervisor (current) use of anticoagulants Status: Acute Assessment and Plan: - Secondary to Right IJ Thrombus. - Continue based upon the recommendations of General Surgery. (3) Esophageal cancer, stage IV: Code(s): C15.9 - Malignant neoplasm of esophagus, unspecified Status: Acute Assessment and Plan: - Metastatic. Pt. is aware and sees Dr. Faraz Lane at [facility]. He had a recent PET scan and will be receiving the results this week. - Follow up with Dr. Baptiste this week as scheduled. (4) Diabetes mellitus: Qualifiers: Diabetes mellitus type: type 2 Diabetes mellitus terminal gauger insulin use: without terminal gauger use Diabetes mellitus complication status: without complication Qualified Code(s): E11.9 - Type 2 diabetes mellitus without complications Code(s): E11.9 - Type 2 diabetes mellitus without complications Status: Acute Assessment and Plan: - Resume home diet. (5) Obstructive sleep apnea on CPAP: Code(s): G47.33 - Obstructive sleep apnea (adult) (pediatric); Z99.89 - Dependence on other enabling machines and devices Status: Acute Assessment and Plan: - Continue CPAP therapy. DS: Summary Hospital Course Reason for hospitalization: Acute Appendicitis Hospital Course: This 65 year old male patient with significant PMH of of Stage 4 Esophageal Cancer, acute on chronic appendicitis who was recently treated as an inpatient recently with Zosyn and discharged. He re-presented to the ER on 05/11/21 with complaints of having RLQ abdominal pain that is improved by flexing his leg. In the ER, it was determined that he had Acute Appendicitis by CT scan and there was also some areas of possible metastatic spread. He was afebrile. There are no other complaints at this time. He has the expected soreness, but otherwise a favorable outcome. He has been able to tolerate solid foods without difficulty. Discharge instructions per General Surgery. Status at Discharge Functional status at discharge: independent ambulation Overall status at discharge: patient is back to baseline Time Spent with Patient Time attestation: Total time spent providing and/or coordinating discharge services: Time spent: Greater than 30 minutes Exam Narrative: PHYSICAL EXAM: General: No acute distress, obese HEENT: MMM, NO erythema, edema or exudate in posterior O/P. Respiratory: Clear to auscultation bilaterally, no increased work of breathing, power port right upper chest Cardiovascular: Regular rate, regular rhythm, 2+ bilateral radial pedal pulses Gastrointestinal: Marked tenderness at McBurney's point, normoactive bowel sounds, nondistended, soft Skin: Non jaundice, no pallor Musculoskeletal: No clubbing, cyanosis or edema Neurological: Alert and oriented, speech clear, no facial asymmetry, no gross motor deficits noted on limited exam Psychiatric: Appropriate mood and affect, pleasant and cooperative Hematologic/lymphatic
== END 2021-05-13 13:25 | disposition home or self-care (01) ==
LOC: ANHED 21:29 → ANH3MEDSUR 22:46
PROVIDERS: Emergency Medicine; Internal Medicine; Nurse Practitioner Adult Health; Admitting Provider Surgery; Emergency Provider Emergency Medicine; PCP Family Medicine; Visit Provider Surgery
PROC: 0DTJ4ZZ Resection of Appendix, Percutaneous Endoscopic Approach (ICD-10-PCS; CPT 44970; principal; 2021-05-12 15:15)
DX: K35.30 Acute appendicitis with localized peritonitis, without perforation or gangrene (principal); C15.9 Malignant neoplasm of esophagus, unspecified; Z20.822 Contact with and (suspected) exposure to COVID-19; E11.9 Type 2 diabetes mellitus without complications; E78.2 Mixed hyperlipidemia; G47.33 Obstructive sleep apnea (adult) (pediatric); I10 Essential (primary) hypertension; K76.0 Fatty (change of) liver, not elsewhere classified; N40.1 Benign prostatic hyperplasia with lower urinary tract symptoms; Z79.01 Long term (current) use of anticoagulants; R35.1 Nocturia; Z99.89 Dependence on other enabling machines and devices; Z87.891 Personal history of nicotine dependence; Z79.84 Long term (current) use of oral hypoglycemic drugs
CPT/HCPCS: 44970; 36415; 74177; 80048; 80053; 81003; 82948; 83605; 83690; 83735; 85025; 85027; 88304; 88313; 88342; 96361; 96365; 96374; 96375; 96376; 99285; A9270; C9113; C9803; G0378; J1170; J2250; J2405; J2543; J2704; J3010; J7030; J7120; Q9967; U0003; U0005

== ENCOUNTER → 2021-05-22 07:42 | Outpatient (CLI) | payer OTHER, SELFPAY ==
--- NOTE | ~2021-05-22 | MR_ITS ---
EXAMINATION: MR shoulder RT wo con DATE: 05/22/2021 08:43 INDICATION: Increasing right shoulder pain TECHNIQUE: Magnetic resonance imaging (MRI) of the right shoulder was performed without intravenous c ontrast. Following the assembly riveter localizer images and axial PD-weighted FS FSE sequence was obtained afte r which at patient request the study was terminated. COMPARISON: Right shoulder radiographs dated 04/15/2021 FINDINGS: Significantly limited incomplete study with motion artifact on the only diagnostic sequence obtained. There is edema in the metaphyseal region of the metaphyseal region of the proximal right humerus. Th ere is suggestion of a possible 2.5 x 1.5 cm bone lesion at the inferomedial aspect of the humeral he ad. Mild right acromioclavicular and glenohumeral osteoarthritis. No joint effusions, bursitis or oth er abnormal fluid collections. Although assessment is significantly limited, the labrum, long head bi ceps tendon and rotator cuff tendons all appear grossly intact. Nonspecific 3.5 x 2.0 x 2.3 cm region of increased fluid signal along the posterior inferior margin of the subscapularis muscle belly julius g the superomedial margin of the quadrilateral space. IMPRESSION: 1. Markedly limited study terminated prematurely at patient request after only the assembly riveter localizer im ages and a single axial PD weighted FS sequence. 2. Suggestion of a possible 2.5 x 1.5 cm lesion at the inferomedial aspect of the humeral head. Consi umesh pre and postcontrast imaging either with repeat MRI or CT. Could also consider bone scan to asses s for increased uptake in any additional bone lesions. 3. Nonspecific 3.5 x 2.0 x 2.3 cm region of increased signal in the distal subscapularis muscle belly , again assessment is limited in the absence of intravenous contrast with differential including musc le strain or neoplasm. Reviewed, dictated and finalized at location B. IMPRESSION: 1. Markedly limited study terminated prematurely at patient request after only the assembly riveter localizer images and a single axial PD weighted FS sequence. 2. Suggestion of a possible 2.5 x 1.5 cm lesion at the inferomedial aspect of t he humeral head. Consider pre and postcontrast imaging either with repeat MRI o r CT. Could also consider bone scan to assess for increased uptake in any addit ional bone lesions. 3. Nonspecific 3.5 x 2.0 x 2.3 cm region of increased signal in the distal subs capularis muscle belly, again assessment is limited in the absence of intraveno us contrast with differential including muscle strain or neoplasm.
== END ==
PROVIDERS: PCP Family Medicine; Visit Provider Orthopaedic Surgery
DX: M25.511 Pain in right shoulder (principal)
CPT/HCPCS: 73221

== ENCOUNTER 2021-11-18 02:11 | Day surgery (SDC) | payer OTHER, SELFPAY ==
[2021-11-06 14:36] VITALS: BMI 29.7
[2021-11-18 11:12] VITALS: BP 157/84; PULSE 102; RESP 18; TEMP 36.2; O2SAT 96
--- NOTE | 2021-11-18 11:29 | PM.HPGS ---
History of Present Illness History of Present Illness Consent: Risks, benefits, and alternatives have been discussed and questions answered. Patient agrees to proceed with procedure. Chief complaint: esophageal cancer, dysphagia Narrative: Nabil Monson is a 65 year old male Presents with complaints of dysphagia. Patient diagnosed with esophageal cancer about 6 or 8 years ago. Most recent endoscopy revealed erythema at the GE junction. He has developed progressive difficulty swallowing over the last month and a half. He states intermittently food will catch sometimes even water has difficulty passing through the esophagus. Occasionally he will able to eat without difficulty. He does better if he drinks liquids initially. Patient recently found to have metastases from previous esophageal cancer to the spine. He apparently has had significant radiation therapy in the recent past currently relying on chemotherapy. Patient with has been found to be anemic attributed to chemotherapy he has no evidence for recent blood loss. He presents today for EGD because of difficulty swallowing. Back pain is controlled with narcotics. Constipation controlled with MiraLax. Review of Systems Review of Systems: Review of systems noncontributory. [facility] Past Medical History Medical History Arthritis of left wrist STT arthritis Biceps muscle tear (~09/2015) BPH associated with nocturia Carpal tunnel syndrome (~04/2016) Diabetes Diabetes mellitus Dysphagia Esophageal cancer (02/2019) Poorly differentiated adenocarcinoma stage IV. Managed at [place]. With most recent April 2021 CT scan at [place] demonstrating interval development of mediastinal hilar lymphadenopathy suspicious for metastatic disease. 2.5 cm left adrenal nodule also suspicious for metastatic disease. Interval development of lesion in the right aspect of L3 vertebral body suspicious for metastatic disease and enhancement anterior aspect left lobe of the liver new from prior exam. The patient's disease had previously been stable October 2020. Essential (primary) hypertension Hepatic steatosis Hiatal hernia Hypogonadism in male Internal jugular vein thrombosis (~04/2019) On chronic anticoagulation Mixed hyperlipidemia Obstructive sleep apnea (adult) (pediatric) Obstructive sleep apnea on CPAP Tobacco use Quit 07-29-18 Surgical History Surgical History H/O hernia repair Inguinal hernia repair with mesh History of carpal tunnel release History of colonoscopy History of esophagogastroduodenoscopy (EGD) History of hand surgery surgery for trigger finger right hand History of knee surgery (~04/2018) Right knee arthroscopy in 2019 for meniscal tear History of laparoscopic appendectomy 05/12/21 History of surgery on arm Port-A-Cath in place Family History Family History Sibling Family history of rheumatoid arthritis Heart disease Grandparent Diabetes mellitus Father Hypertension Cancer Social History Social History Social History: He lives in [place] with his of 39 years. 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 Primary care physician: Dr. Moise Lee Code status: Full code Surrogate decision maker: Smoking packs per day: 2 Smoking cigarettes per day: 40.0 Years smoked: 40 Smoking pack-years: 80.00 Smoking status: Former smoker Tobacco type: cigarettes Smoking end date: 02/15/17 Alcohol intake: current Drinks per week: 1 Alcohol use details: 1 EVERY 6 MONTHS SINCE STARTING CHEMO Substance use: current Substance use type: does not use Other substance usage details: GUMMY Living arrangements: with family Gender identity (if verbalized by the patient): Male Spiritual care concerns: No
[2021-11-18] MEDS: LACTATED RINGERS 1,000 ML 150 ML IV CONT (11:32)
[2021-11-18 11:34] LABS: Glucose Point of Care 141 mg/dl (65-105)
--- NOTE | 2021-11-18 12:06 | WPDANESEPPF ---
Anes - Initial Pre Proc Eval Procedure: Operation Date: 11/18/21 12:30 Proposed Procedures p Esophagogastroduodenoscopy - David Rehman MD Date/Time: 11/18/21 12:06 Surgeon: David Rehman MD Pre Op Diagnosis: esophageal cancer, dysphagia Patient Data Age: 65 Gender: M Height: 1.77 m Weight: 91.7 kg Last Vital Signs Temp 97.2 F L 11/18/21 11:12 Pulse 102 H 11/18/21 11:12 Resp 18 11/18/21 11:12 BP 157/84 H 11/18/21 11:12 Pulse Ox 96 11/18/21 11:12 O2 Del Method Room Air 11/18/21 11:12 Allergies Allergy/AdvReac Type Severity Reaction Status Date / Time animal dander Allergy Intermediate Sneezing Verified 11/18/21 11:11 codeine Allergy Intermediate headache Verified 11/18/21 11:11 morphine Allergy Intermediate Headache Verified 11/18/21 11:11 iohexol Allergy Diarrhea Verified 11/18/21 11:11 [From contrast - CT, X-RAY] AMADEO Inhibitors AdvReac Mild Cough Verified 11/18/21 11:11 Home Medications Medication Instructions Recorded Confirmed Type irbesartan 150 1 tablet PO DAILY #90 tabs 03/10/21 11/18/21 Rx mg-hydrochlorothiazide 12.5 mg tablet rivaroxaban 20 mg tablet (Xarelto) 20 mg PO DAILY 05/12/21 11/18/21 History tadalafil 5 mg tablet See Rx Instructions .Route 06/04/21 11/18/21 Rx .COMPLEX #90 tabs co [id number] oil-omega 3-E 2,800 mg BYMOUTH 1XD 08/25/21 11/18/21 History magnesium 200 mg tablet 400 mg PO DAILY 08/28/21 11/18/21 History fenofibrate 160 mg tablet See Rx Instructions .Route 09/10/21 11/18/21 Rx .COMPLEX #90 tabs B-complex with vitamin C 1 cap PO DAILY 10/02/21 11/18/21 History calcium carbonate 600 mg calcium 600 mg PO DAILY 10/02/21 11/18/21 History (1,500 mg) tablet clotrimazole 1 % topical cream 1 applic topical Q12H #45 grams 10/02/21 11/18/21 Rx (Clotrimazole AF) fentanyl 12 mcg/hr transdermal 1 patch transdermal Q72H 10/02/21 11/18/21 History patch lidocaine HCl 2 % mucosal solution 1 applic mucous membrane BID 10/02/21 11/18/21 History (Lidocaine Viscous) metformin 500 mg tablet,extended 500 mg PO .q dinner 10/02/21 11/18/21 History release 24 hr naloxone 4 mg/actuation nasal 1 spray intranasal Q3M 10/02/21 11/18/21 History spray (Narcan) prochlorperazine See Rx Instructions .Route .COMPLEX 10/02/21 11/18/21 History tamsulosin 0.4 mg capsule 0.4 mg PO BID #180 caps 10/02/21 11/18/21 Rx dexamethasone 8 mg BYMOUTH USEASDIRECTD 10/28/21 11/18/21 History loratadine 10 mg capsule 10 mg PO DAILY 10/28/21 11/18/21 History trazodone 150 mg tablet 150 mg PO QHS #90 tabs 10/28/21 11/18/21 Rx esomeprazole magnesium 40 mg 40 mg PO BID 11/06/21 11/18/21 History capsule,delayed release (Nexium) fentanyl 25 mcg/hr transdermal 1 patch transdermal Q72H 11/06/21 11/18/21 History patch Laboratory Tests 11/18/21 11:30 POC Capillary Glucose 141 mg/dl H mg/dl (65-105) Patient hx anesthesia problems: none Family hx anesthesia problems: none Results Review: All pre-operative results and documents have been reviewed as part of the pre-operative evaluation. [facility] Past Medical History Medical History Arthritis of left wrist STT arthritis Biceps muscle tear (~09/2015) BPH associated with nocturia Carpal tunnel syndrome (~04/2016) Diabetes Diabetes mellitus Dysphagia Esophageal cancer (02/2019) Poorly differentiated adenocarcinoma stage IV. Managed at [place]. With most recent April 2021 CT scan at [place] demonstrating interval development of mediastinal hilar lymphadenopathy suspicious for metastatic disease. 2.5 cm left adrenal nodule also suspicious for metastatic disease. Interval development of lesion in the right aspect of L3 vertebral body suspicious for metastatic disease and enhancement anterior aspect left lobe of the liver new from prior exam. The patient's disease had previously been stable October 2020. Essential (primary) hypertension Hepatic steatosis Hiatal hernia Hypogonadism in male Inte
[2021-11-18 12:29] VITALS: BP 138/74; PULSE 93; RESP 24; O2SAT 93
[2021-11-18 12:39] VITALS: BP 143/80; PULSE 90; RESP 20; O2SAT 97
[2021-11-18 12:49] VITALS: BP 146/79; PULSE 91; RESP 15; O2SAT 96
== END 2021-11-18 13:01 | disposition home or self-care (01) ==
PROVIDERS: PCP Emergency Medicine; Visit Provider Internal Medicine Gastroenterology
PROC: 0DJ08ZZ Inspection of Upper Intestinal Tract, Via Natural or Artificial Opening Endoscopic (ICD-10-PCS; CPT 43235; principal; 2021-11-18 12:30)
DX: R13.19 Other dysphagia (principal); D13.0 Benign neoplasm of esophagus; Z79.01 Long term (current) use of anticoagulants; Z79.84 Long term (current) use of oral hypoglycemic drugs; N40.1 Benign prostatic hyperplasia with lower urinary tract symptoms; C15.9 Malignant neoplasm of esophagus, unspecified; C79.51 Secondary malignant neoplasm of bone; E11.9 Type 2 diabetes mellitus without complications; Z85.01 Personal history of malignant neoplasm of esophagus; Z86.718 Personal history of other venous thrombosis and embolism; G47.33 Obstructive sleep apnea (adult) (pediatric); Z87.891 Personal history of nicotine dependence
CPT/HCPCS: 43450; 43239; 82948; 88305; 88342; J2704; J7120

== ENCOUNTER 2021-12-04 22:18 | Inpatient (IN) | payer OTHER, SELFPAY ==
--- NOTE | ~2021-12-04 | CT_ITS ---
EXAMINATION: CT abdomen pelvis wo con DATE: 12/04/2021 23:44 INDICATION: Right lower quadrant abdominal pain TECHNIQUE: Computed tomography (CT) of the abdomen and pelvis was performed without intravenous contr ast. The dose-length product was 608.70 mGy-cm. Automated exposure control and iterative reconstructi on technique were employed. COMPARISON: CT dated 05/11/2021. FINDINGS: Lung bases are unremarkable. Heart size normal. No significant pleural or pericardial effus ion. There is an enlarging 3.3 x 2 cm hypodense mass of the left hepatic lobe, consistent with malign benita until proven otherwise. The spleen and pancreas are unremarkable. There are bilateral adrenal ma sses. Left adrenal mass appears slightly larger on current examination measuring 2.7 x 2.6 cm. Right adrenal mass measures 1.5 cm and was not definitely seen on prior examination. There is nonobstructin g bilateral renal stones. Status post appendectomy. Moderate colonic fecal loading. Gallbladder is pr esent. No free air or free fluid. Bladder is moderately distended. There are fat-containing inguinal hernias. Moderate atherosclerosis without aneurysm. Small hiatal hernia. No lymphadenopathy. There ar e sclerotic lesions of T12, L3, L5, the sacrum, consistent with metastatic disease. There is a likely pathologic fracture of L3. There is moderate distention of the distal small bowel with retained feca l material. Distal obstruction cannot be excluded. There is a small amount of extraluminal gas adjace nt to the small bowel near a surgical anastomotic site, series 3 image [id number] and series 601, images 28-31, suspicious for metastatic disease. IMPRESSION: 1. Enlarging 3.3 cm hypodense mass of the left hepatic lobe. Enlarging bilateral adrenal masses. Prog ression of sclerotic lesions in the spine and pelvis. This constellation of findings is compatible wi th metastatic disease. 2: Nonobstructing bilateral nephrolithiasis. 3: Mild distention of the distal small bowel with retained fecal material, suspicious for partial sma ll bowel obstruction. 4: Small amount of extraluminal gas in the right mid abdomen adjacent to surgical anastomotic site o f the small bowel, suspicious for perforated viscus. Reviewed, dictated and finalized at location A. IMPRESSION: 1. Enlarging 3.3 cm hypodense mass of the left hepatic lobe. Enlarging bilatera l adrenal masses. Progression of sclerotic lesions in the spine and pelvis. Thi s constellation of findings is compatible with metastatic disease. 2: Nonobstructing bilateral nephrolithiasis. 3: Mild distention of the distal small bowel with retained fecal material, susp icious for partial small bowel obstruction. 4: Small amount of extraluminal gas in the right mid abdomen adjacent to surgi aydee anastomotic site of the small bowel, suspicious for perforated viscus.
[2021-12-04 22:22] VITALS: BP 188/92; PULSE 94; RESP 16; TEMP 36.4; O2SAT 98
[2021-12-04 23:23] LABS: Hematocrit 27.7 % (42.0-52.0); Hemoglobin 8.8 g/dL (14.0-18.0); Lymphocytes Absolute Auto 0.28 K/mm3 (0.9-3.2); Lymphocytes Percent Auto 23.3 % (18.3-44.2); Mean Corpuscular HGB Conc 31.8 g/dl (32-36); Mean Corpuscular Volume 94.5 fl (80-100); Mean Platelet Volume 10.1 fl (7.4-10.4); Monocytes Absolute Auto 0.1 K/mm3 (0.1-0.6); Monocytes Percent Auto 8.3 % (2.6-8.5); Neutrophils Absolute Auto 0.8 K/mm3 (1.3-6.7); Neutrophils Percent Auto 68.4 % (45.5-73.1); Nucleated Red Blood Cells Perc 1.7 % (0.0-0.2); Platelet Count Result 309 k/mm3 (150-375); Red Blood Count 2.93 M/mm3 (4.6-6.20); Red Cell Distribution Width 20.8 % (11.5-14.5)
--- NOTE | 2021-12-04 23:28 | ED.ABDPAIN ---
HPI - Abdominal Pain General Chief Complaint: Abdominal Pain Stated Complaint: ABD PAIN Time Seen by Provider: 12/04/21 22:36 History of Present Illness HPI narrative: This is a 65-year-old male with past medical history of stage IV esophageal cancer, on chemotherapy (with last treatment yesterday) who presents emergency department with right lower quadrant abdominal pain. The patient states he was in his normal state of health, resting when he had sudden onset right lower quadrant pain. He describes as sharp, 8/10 with movement, 3/10 at rest. He states he had a normal bowel movement today and has been able to pass gas. He denies vomiting. Related Data Home Medications Medication Instructions Recorded Confirmed rivaroxaban 20 mg tablet (Xarelto) 20 mg PO DAILY 05/12/21 12/05/21 co [id number] oil-omega 3-E 2,800 mg BYMOUTH 1XD 08/25/21 12/05/21 magnesium 200 mg tablet 400 mg PO DAILY 08/28/21 12/05/21 B-complex with vitamin C 1 cap PO DAILY 10/02/21 12/05/21 calcium carbonate 600 mg calcium 600 mg PO DAILY 10/02/21 12/05/21 (1,500 mg) tablet lidocaine HCl 2 % mucosal solution 1 applic mucous membrane BID 10/02/21 12/05/21 (Lidocaine Viscous) metformin 500 mg tablet,extended 1,000 mg PO .q dinner 10/02/21 12/05/21 release 24 hr dexamethasone 8 mg DAVONTE USEASDIRECTD 10/28/21 12/05/21 loratadine 10 mg capsule 10 mg PO DAILY 10/28/21 12/05/21 esomeprazole magnesium 40 mg 40 mg PO BID 11/06/21 12/05/21 capsule,delayed release (Nexium) fentanyl 25 mcg/hr transdermal 1 patch transdermal Q72H 11/06/21 12/05/21 patch fenofibrate 160 mg tablet 160 mg PO HS 12/05/21 12/05/21 tadalafil 5 mg tablet 10 mg BID 12/05/21 12/05/21 tamsulosin 0.4 mg capsule 0.4 mg PO HS 12/05/21 12/05/21 Allergies Allergy/AdvReac Type Severity Reaction Status Date / Time animal dander Allergy Intermediate Sneezing Verified 12/04/21 23:35 codeine Allergy Intermediate headache Verified 12/04/21 23:35 morphine Allergy Intermediate Headache Verified 12/04/21 23:35 iohexol Allergy Diarrhea Verified 12/04/21 23:35 [From contrast - CT, X-RAY] AMADEO Inhibitors AdvReac Mild Cough Verified 12/04/21 23:35 taxol AdvReac Severe Other Uncoded 12/04/21 23:35 Review of Systems Review of Systems: CONSTITUTIONAL: Denies fever, chills, or sweats. EYES: Denies visual changes, redness, or discharge. ENT: Denies rhinorrhea, congestion, sore throat, or otalgia. CARDIOVASCULAR: Denies chest pain, palpitations, or edema. RESPIRATORY: Denies cough or dyspnea. GASTROINTESTINAL: Right lower quadrant abdominal pain denies nausea, vomiting, or diarrhea. GENITOURINARY: Denies dysuria or hematuria. SKIN: Denies rash or itching. MUSCULOSKELETAL: Denies back pain, joint pain, or myalgia. NEUROLOGIC: Denies headache, numbness, dizziness, or weakness. PSYCHIATRIC: Denies anxiety or depression. [facility] Past Medical History Medical History Arthritis of left wrist STT arthritis Biceps muscle tear (~09/2015) BPH associated with nocturia Carpal tunnel syndrome (~04/2016) Diabetes Diabetes mellitus Dysphagia Esophageal cancer (02/2019) Poorly differentiated adenocarcinoma stage IV. Managed at [place]. With most recent April 2021 CT scan at [place] demonstrating interval development of mediastinal hilar lymphadenopathy suspicious for metastatic disease. 2.5 cm left adrenal nodule also suspicious for metastatic disease. Interval development of lesion in the right aspect of L3 vertebral body suspicious for metastatic disease and enhancement anterior aspect left lobe of the liver new from prior exam. The patient's disease had previously been stable October 2020. Essential (primary) hypertension Hepatic steatosis Hiatal hernia Hypogonadism in male Internal jugular vein thrombosis (~04/2019) On chronic anticoagulation Mixed hyperlipidemia Obstructive sleep apnea (adult) (pediatric) Obstructive sleep apnea on CPAP Tobacco use Quit 619 Surgical History Surgical History
[2021-12-04] MEDS: fentaNYL CITRATE INJ (*CRX) 100 MCG/2 ML VIAL 50 MCG IV PUSH (23:31)
[2021-12-04 23:32] LABS: Lactic Acid Reflex 0.7 mmol/L (0.7-2.0)
[2021-12-04] MEDS: ONDANSETRON INJ 4 MG/2 ML VIAL IV PUSH (23:32)
[2021-12-04 23:33] VITALS: BP 184/86; PULSE 92; RESP 18; O2SAT 97
[2021-12-04 23:33] LABS: Alanine Aminotransferase 29 U/L (6-50); Albumin Level 3.5 g/dL (3.5-5.1); Alkaline Phosphatase 49 U/L (38-126); Anion Gap 7 mmol/L (8-16); Aspartate Amino Transferase 35 U/L (17-59); Bilirubin,Total 0.5 mg/dL (0.2-1.3); Blood Urea Nitrogen 28 mg/dL (9-20); Calcium 8.2 mg/dL (8.4-10.2); Carbon Dioxide 23 mmol/L (22-30); Chloride 102 mmol/L (98-107); Estimated CRCL calculation 95 ml/min; Estimated Glomerular Filt Rate > 60; Glucose 111 mg/dL (65-110); Lipase 114 U/L (23-300); Potassium 3.9 mmol/L (3.4-5.0); Sodium 132 mmol/L (137-145)
--- NOTE | 2021-12-04 23:35 | PC.NURSE ---
Pt to CT scan via stretcher at this time.
[2021-12-04 23:45] LABS: White Blood Count 1.2 K/mm3 (4.5-10.0)
[2021-12-05] VITALS (9 sets, daily range): BP systolic 136–175; BP diastolic 74–98; PULSE 92–122; RESP 16–22; TEMP 36.1–37.6; O2SAT 92–98
--- NOTE | 2021-12-05 00:36 | PM.IMHP ---
H&P: HPI History of Present Illness Date/Time: 12/05/21 00:36 Chief Complaint: abdominal pain Narrative: This is a 65-year-old male with past medical history significant for metastatic esophageal CA patient presents to the emergency room after sudden onset of abdominal pain, no nausea, no vomiting, no fevers, no chills, patient has been his usual state of health he is currently undergoing chemotherapy. Preliminary workup was significant for CT of abdomen and pelvis was reported as: IMPRESSION: 1. Enlarging 3.3 cm hypodense mass of the left hepatic lobe. Enlarging bilateral adrenal masses. Progression of sclerotic lesions in the spine and pelvis. This constellation of findings is compatible with metastatic disease. 2: Nonobstructing bilateral nephrolithiasis. 3: Mild distention of the distal small bowel with retained fecal material, suspicious for partial small bowel obstruction. 4:? Small amount of extraluminal gas in the right mid abdomen adjacent to surgical anastomotic site of the small bowel, suspicious for perforated viscus. Review of Systems Review of Systems: sudden onset abdominal pain Constitutional: Constitutional: Reports chills, Denies fever(s) and Denies malaise Eyes: Eyes: Denies change in vision ENT: Denies dysphagia, Denies vertigo and Denies odynophagia Cardiovascular: Cardiovascular: Denies chest pain, Denies irregular heart rhythm, Denies lightheadedness, Denies palpitations and Denies dyspnea on exertion Respiratory: Respiratory: Denies chest congestion, Denies cough, Denies excessive phlegm production and Denies dyspnea Gastrointestinal: Gastrointestinal: Reports abdominal pain, Denies hematochezia, Denies dyspepsia, Denies heartburn, Denies diarrhea, Denies nausea and Denies vomiting Genitourinary: Genitourinary: Denies dysuria Musculoskeletal: Musculoskeletal: Denies arthralgias and Denies muscle weakness Integumentary/Breasts: Skin/Breast: Denies rash Neurologic: Denies vertigo, Denies dizziness, Denies focal weakness and Denies Sensory deficit (Neuro) Psychiatric: Psychiatric: Reports no additional psychiatric complaints and Reports as per HPI Endocrine: Endocrine: Denies cold intolerance, Denies flushing, Denies heat intolerance, Denies polyphagia, Denies polydipsia and Denies palpitations Allergic/Immunologic: Allergic/Immunologic: Reports no additional allergic/immunologic complaints and Reports as per HPI [facility] Past Medical History Medical History Arthritis of left wrist STT arthritis Biceps muscle tear (~09/2015) BPH associated with nocturia Carpal tunnel syndrome (~04/2016) Diabetes Diabetes mellitus Dysphagia Esophageal cancer (02/2019) Poorly differentiated adenocarcinoma stage IV. Managed at [place]. With most recent April 2021 CT scan at [place] demonstrating interval development of mediastinal hilar lymphadenopathy suspicious for metastatic disease. 2.5 cm left adrenal nodule also suspicious for metastatic disease. Interval development of lesion in the right aspect of L3 vertebral body suspicious for metastatic disease and enhancement anterior aspect left lobe of the liver new from prior exam. The patient's disease had previously been stable October 2020. Essential (primary) hypertension Hepatic steatosis Hiatal hernia Hypogonadism in male Internal jugular vein thrombosis (~04/2019) On chronic anticoagulation Mixed hyperlipidemia Obstructive sleep apnea (adult) (pediatric) Obstructive sleep apnea on CPAP Tobacco use Quit - Surgical History Surgical History H/O hernia repair Inguinal hernia repair with mesh History of carpal tunnel release History of colonoscopy History of esophagogastroduodenoscopy (EGD) History of hand surgery surgery for trigger finger right hand History of knee surgery (~04/2018) Right knee arthroscopy in 2019 for meniscal tear History of laparoscopic appendectomy 05/12/21 Histor
[2021-12-05] MEDS: SODIUM CHLORIDE 0.9% IV 1,000 ML 125 ML IV CONT ×3 (00:49→16:24)
[2021-12-05] MEDS: fentaNYL CITRATE INJ (*CRX) 100 MCG/2 ML VIAL IV PUSH (00:49)
--- NOTE | 2021-12-05 02:00 | PC.NURSE ---
Zosyn 3.375 50MLS infused, 0 volume left in container.
--- NOTE | 2021-12-05 02:14 | PC.NURSE ---
Pt received Fentanyl 50mcg, Zofran 4mg, Ofirmev 1000 IV as ordered. Pt rates pain a 7/10 at this time.
[2021-12-05 03:48] LABS: SARS-CoV-2 RNA PCR Negative
--- NOTE | 2021-12-05 04:08 | ADMGEN ---
This patient, Nabil Monson, was admitted to 3 [facility] Surg Room 326-01at [id number]. Patient/family oriented to hospital policies and general routines including ID bracelet, bed and alarms, visiting hours, pain management, procedures, bathroom and other care routines, personal items, smoking policy, room service/diet, and visiting hours. Information on how to activate the Rapid Response Team has been discussed. Patient/Family are encouraged to report perceived risks to care and to ask questions if they do not understand what they are told or what they should do.
[2021-12-05] MEDS: fentaNYL CITRATE INJ (*CRX) 100 MCG/2 ML VIAL 25 MCG IV PUSH (05:19)
[2021-12-05] MEDS: ONDANSETRON INJ 4 MG/2 ML VIAL IV PUSH (05:24)
[2021-12-05 08:20] LABS: Glucose Point of Care 109 mg/dl (65-105)
[2021-12-05] MEDS: fentaNYL CITRATE INJ (*CRX) 100 MCG/2 ML VIAL 50 MCG IV PUSH ×2 (09:06→20:32)
--- NOTE | 2021-12-05 09:21 | PM.IMPN ---
Progress Note: A&P Assessment and Plan (1) Abdominal pain, acute, right lower quadrant: Code(s): R10.31 - Right lower quadrant pain Status: Acute Assessment and Plan: Likely due to perforated viscus but also has metastatic cancer with chronic pain and wears a fentanyl patch 25 mcg at home. -Appreciate surgery recommendations -Continue Zosyn -Pain control - oral norco, continue fentanyl patch, fentanyl IV PRN (2) Perforated viscus: Code(s): R19.8 - Other specified symptoms and signs involving the digestive system and abdomen Status: Acute Assessment and Plan: History of radiation to the spine and two other locations. Does not appear to have surrounding abscess on CT abdomen pelvis. Blood cultures pending. -Continue zosyn -Appreciate General Surgery recommendations (3) Antineoplastic chemotherapy induced anemia: Code(s): D64.81 - Anemia due to antineoplastic chemotherapy; T45.1X5A - Adverse effect of antineoplastic and immunosuppressive drugs, initial encounter Status: Acute Assessment and Plan: Has a chemotherapy schedule of three weeks on and three weeks off. Last chemotherapy yesterday. (4) Esophageal cancer: Onset Date: 02/2019 Code(s): C15.9 - Malignant neoplasm of esophagus, unspecified Status: Acute Assessment and Plan: Poorly differentiated adenocarcinoma stage IV.? Managed at [place].? With most recent April 2021 CT scan at [place] demonstrating interval development of mediastinal hilar lymphadenopathy suspicious for metastatic disease.? 2.5 cm left adrenal nodule also suspicious for metastatic disease.? Interval development of lesion in the right aspect of L3 vertebral body suspicious for metastatic disease and enhancement anterior aspect left lobe of the liver new from prior exam.? The patient's disease had previously been stable October 2020. (5) Obstructive sleep apnea on CPAP: Code(s): G47.33 - Obstructive sleep apnea (adult) (pediatric); Z99.89 - Dependence on other enabling machines and devices Status: Acute Assessment and Plan: Continue CPAP. (6) Diabetes mellitus: Qualifiers: Diabetes mellitus type: type 2 Diabetes mellitus [facility] insulin use: without [facility] use Diabetes mellitus complication status: without complication Qualified Code(s): E11.9 - Type 2 diabetes mellitus without complications Code(s): E11.9 - Type 2 diabetes mellitus without complications Status: Acute Assessment and Plan: On metformin at home. -SSI with accuchecks (7) Pulmonary embolism: Code(s): I26.99 - Other pulmonary embolism without acute cor pulmonale Status: Acute Assessment and Plan: 09/11/21 CTA noted recurrence of pulmonary embolus per oncology note. Takes rivaroxaban. Will continue. Subjective Date/time seen: 12/05/21 09:21 Patient says he has significant pain that is uncontrolled. Also reports abdominal pain. Denies fever, chills, nausea, vomiting. Review of Systems Gastrointestinal: Gastrointestinal: Denies abdominal pain, Denies nausea and Denies vomiting Exam Narrative: GENERAL: NAD, cooperative HEENT: Normocephalic, atraumatic, anicteric, nares clear, oropharynx moist and clear, dentition normal NECK: Supple CV: Normal S1, S2, RRR, No MRG RESP: CTAB, Normal work of breathing. Abdomen: midly distended, no peritoneal signs, nontender, hypoactive bowel sounds EXTREMITIES: CN 2-12 grossly intact. Objective Data Vital Signs Vital Signs: Vital Signs - 24 hr 12/04/21 22:22 12/04/21 23:33 12/05/21 00:50 Temperature 36.4 C L Pulse Rate 94 92 108 H Respiratory Rate 16 18 22 H Blood Pressure 188/92 H 184/86 H 175/89 H Pulse Oximetry 98 97 98 Oxygen Delivery 12/05/21 02:15 12/05/21 02:30 12/05/21 02:55 Temperature 37.6 C H 36.6 C Pulse Rate 120 H 118 H 122 H Respiratory Rate
[2021-12-05] MEDS: LIDOCAINE HCL 2% VISC SOLN 15 ML UDC MUCOUS MEM ×2 (12:28→16:19)
[2021-12-05] MEDS: MAGNESIUM OXIDE 400 MG TABLET PO (12:29)
[2021-12-05] MEDS: hydroCHLOROthiazide 12.5 MG CAPSULE PO (12:29)
[2021-12-05] MEDS: HYDROCORTISONE SODIUM SUCCINATE 100 MG/2 ML VIAL 200 MG IV PUSH ×3 (12:29→20:30)
[2021-12-05] MEDS: LORATADINE 10 MG TABLET PO (12:29)
[2021-12-05] MEDS: PANTOPRAZOLE 40 MG TABLET PO ×2 (12:29→20:29)
[2021-12-05] MEDS: PIPERACILLIN/TAZOBACTAM SOD 4.5 GM in SODIUM CHLORIDE 0.9% IV 100 ML 200 ML IVPB ×3 (12:37→20:49)
--- NOTE | 2021-12-05 14:09 | PM.CNGS ---
Assessment and Plan Assessment and plan (1) Bowel perforation: Code(s): K63.1 - Perforation of intestine (nontraumatic) Status: Acute Assessment and Plan: microperforation with no evidence of free fluid, exam largely benign, will start clears, cont IV abx (2) Esophageal cancer: Onset Date: 02/2019 Code(s): C15.9 - Malignant neoplasm of esophagus, unspecified Status: Acute Assessment and Plan: hold Xarelto, hold chemo History of Present Illness Consult details Consult date: 12/05/21 Narrative: Pt is a 65 y/o M c known stage 4 esophageal ca presenting c sudden onset RLQ abd pain. Of note, patient had appetite done 04/2021 and at that time had noted poorly differentiated adenocarcinoma likely metastasized to the appendix causing acute appendicitis. The patient is currently getting chemotherapy, last treatment yesterday. The patient reports he was in his usual state health until last night when he had sudden right lower quadrant abdominal pain. Patient reports that the pain was worse with movement. Patient denies any other symptomatology. Pt reports that he had been eating without issue and had normal bowel function yesterday. Review of Systems Constitutional: Constitutional: Reports as per HPI, Denies anorexia, Denies chills, Reports fatigue, Denies fever(s), Reports lethargy, Denies malaise, Denies poor appetite, Reports weakness, Denies weight gain and Denies weight loss Eyes: Eyes: Reports no additional eye complaints ENT: Reports system reviewed and no additional complaints, except as documented Cardiovascular: Cardiovascular: Reports no additional cardiovascular complaints Respiratory: Respiratory: Reports no additional respiratory complaints Gastrointestinal: Gastrointestinal: Reports as per HPI, Reports abdominal pain, Denies bloating, Denies change in bowel habits, Denies change in stool character, Denies GI cramping, Denies nausea and Denies vomiting Genitourinary: Genitourinary: Reports no additional male genitourinary complaints Musculoskeletal: Musculoskeletal: Reports no additional musculoskeletal complaints Integumentary/Breasts: Skin/Breast: Reports system reviewed and no additional complaints, except as docu Neurologic: Reports system reviewed and no additional complaints, except as documented Psychiatric: Psychiatric: Reports no additional psychiatric complaints Endocrine: Endocrine: Reports no additional endocrine complaints Hematologic/Lymphatic: Hematologic/Lymphatic: Reports no additional hematologic/lymphatic complaints Allergic/Immunologic: Allergic/Immunologic: Reports no additional allergic/immunologic complaints PMFSH Past Medical History Medical History Arthritis of left wrist STT arthritis Biceps muscle tear (~09/2015) BPH associated with nocturia Carpal tunnel syndrome (~04/2016) Diabetes Diabetes mellitus Dysphagia Esophageal cancer (02/2019) Poorly differentiated adenocarcinoma stage IV. Managed at [place]. With most recent April 2021 CT scan at [place] demonstrating interval development of mediastinal hilar lymphadenopathy suspicious for metastatic disease. 2.5 cm left adrenal nodule also suspicious for metastatic disease. Interval development of lesion in the right aspect of L3 vertebral body suspicious for metastatic disease and enhancement anterior aspect left lobe of the liver new from prior exam. The patient's disease had previously been stable October 2020. Essential (primary) hypertension Hepatic steatosis Hiatal hernia Hypogonadism in male Internal jugular vein thrombosis (~04/2019) On chronic anticoagulation Mixed hyperlipidemia Obstructive sleep apnea (adult) (pediatric) Obstructive sleep apnea on CPAP Tobacco use Quit - Surgical History Surgical History H/O hernia repair Inguinal hernia repair with mesh History of carpal tunnel release History of colonoscopy
[2021-12-05 17:03] LABS: Add Urine Microscopic? YES; Appearance Urine Clear (Clear); Bilirubin Urine Negative (Negative); Blood Urine Negative (Negative); Color Urine Yellow (Yellow); Glucose Urine UA Negative (Negative); Ketones Urine Negative (Negative); Leukocyte Esterase Ur Negative LEU/UL (Negative); Nitrate Urine Negative (Negative); Protein Urine 1+ mg/dL (Negative); RBC Urine 0-2 /hpf (0-2); Specific Grav Ur 1.018 (1.001-1.035); Urobilinogen Urine Negative mg/dL (<2.0); WBC Urine 0-3 /hpf
--- NOTE | 2021-12-05 17:03 | PC.NURSE ---
per Dr. Jurado's report which was confirmed by Dr. Ellsworth, pt changed from NPO to clear liquid diet.
[2021-12-05] MEDS: FENOFIBRATE 160 MG TABLET PO (20:29)
[2021-12-05] MEDS: traZODone HCL 50 MG TABLET 150 MG PO (20:29)
[2021-12-05] MEDS: TAMSULOSIN HCL 0.4 MG CAPSULE PO (20:29)
[2021-12-06] VITALS (8 sets, daily range): BP systolic 120–162; BP diastolic 69–89; PULSE 86–97; RESP 16–22; TEMP 36.6–37.3; O2SAT 95–97
[2021-12-06] MEDS: RIVAROXABAN 20 MG TABLET PO (01:04)
[2021-12-06] MEDS: MICONAZOLE NITRATE 2% CREAM 30 GM TUBE 1 APPLIC TOPICAL ×3 (01:05→21:02)
[2021-12-06] MEDS: SODIUM CHLORIDE 0.9% IV 1,000 ML 125 ML IV CONT (01:05)
[2021-12-06] MEDS: fentaNYL CITRATE INJ (*CRX) 100 MCG/2 ML VIAL 50 MCG IV PUSH ×2 (01:14→06:00)
[2021-12-06] MEDS: PIPERACILLIN/TAZOBACTAM SOD 4.5 GM in SODIUM CHLORIDE 0.9% IV 100 ML 200 ML IVPB ×4 (03:00→21:05)
[2021-12-06 05:16] LABS: Basophils Percent Auto 0.3 % (0.2-1.2); Hematocrit 25.6 % (42.0-52.0); Immature Granulocyte Absolute 0.04 K/mm3 (0.00-0.031); Immature Granulocyte Percent A 1.1 % (0-0.5); Lymphocytes Absolute Auto 0.23 K/mm3 (0.9-3.2); Lymphocytes Percent Auto 6.3 % (18.3-44.2); Mean Corpuscular HGB Conc 31.3 g/dl (32-36); Mean Corpuscular Hemoglobin 29.9 pg (26-34); Mean Corpuscular Volume 95.5 fl (80-100); Mean Platelet Volume 9.9 fl (7.4-10.4); Monocytes Absolute Auto 0.1 K/mm3 (0.1-0.6); Monocytes Percent Auto 1.9 % (2.6-8.5); Neutrophils Absolute Auto 3.3 K/mm3 (1.3-6.7); Neutrophils Percent Auto 90.4 % (45.5-73.1); Platelet Count Result 206 k/mm3 (150-375); Red Blood Count 2.68 M/mm3 (4.6-6.20); Red Cell Distribution Width 21.1 % (11.5-14.5); White Blood Count 3.7 K/mm3 (4.5-10.0)
[2021-12-06 05:27] LABS: Alanine Aminotransferase 22 U/L (6-50); Albumin Level 2.8 g/dL (3.5-5.1); Alkaline Phosphatase 39 U/L (38-126); Anion Gap 5 mmol/L (8-16); Aspartate Amino Transferase 25 U/L (17-59); Bilirubin,Total 0.6 mg/dL (0.2-1.3); Blood Urea Nitrogen 20 mg/dL (9-20); Calcium 6.8 mg/dL (8.4-10.2); Carbon Dioxide 22 mmol/L (22-30); Chloride 108 mmol/L (98-107); Estimated CRCL calculation 95 ml/min; Estimated Glomerular Filt Rate > 60; Glucose 122 mg/dL (65-110); Potassium 3.2 mmol/L (3.4-5.0); Sodium 135 mmol/L (137-145)
[2021-12-06] MEDS: CALCIUM CARBONATE (OSCAL) 500 MG TABLET PO (08:25)
[2021-12-06] MEDS: PANTOPRAZOLE 40 MG TABLET PO ×2 (08:25→21:04)
[2021-12-06] MEDS: VITAMIN B COMPLEX/VIT C CAPSULE 1 EACH PO (08:25)
[2021-12-06] MEDS: LORATADINE 10 MG TABLET PO (08:25)
[2021-12-06] MEDS: hydroCHLOROthiazide 12.5 MG CAPSULE PO (08:25)
[2021-12-06] MEDS: MAGNESIUM OXIDE 400 MG TABLET PO (08:25)
--- NOTE | 2021-12-06 09:30 | PM.PNGS ---
Progress Note: A&P Assessment and Plan (1) Bowel perforation: Code(s): K63.1 - Perforation of intestine (nontraumatic) Status: Acute Assessment and Plan: Overall improvement but still some tenderness and poor appetite. Continue clear liquids and IV antibiotics. Continue to follow with exam and labs as before. (2) Esophageal cancer: Onset Date: 02/2019 Code(s): C15.9 - Malignant neoplasm of esophagus, unspecified Status: Chronic Assessment and Plan: Metastatic 2 appendix. Unclear if present illness related to metastatic disease. (3) Pulmonary embolism: Code(s): I26.99 - Other pulmonary embolism without acute cor pulmonale Status: Acute Assessment and Plan: Xarelto on hold (4) Antineoplastic chemotherapy induced anemia: Code(s): D64.81 - Anemia due to antineoplastic chemotherapy; T45.1X5A - Adverse effect of antineoplastic and immunosuppressive drugs, initial encounter Status: Acute Assessment and Plan: White cell count and RBC counts are low as a consequence. Subjective Subjective Date/Time Seen: 12/06/21 09:30 Patient reports: no new complaints, still having pain and pain is less Interval history: Pain is less overall but patient did not have much of an appetite and still having some lower abdominal pain primarily right lower quadrant. Review of Systems Review of Systems: All systems reviewed & are unremarkable except as noted in HPI and below (HPI and those items noted below) Constitutional: Constitutional: Denies chills and Denies fever(s) Cardiovascular: Cardiovascular: Denies chest pain, Denies diaphoresis, Denies dyspnea and Denies paroxysmal nocturnal dyspnea Respiratory: Respiratory: Denies chest congestion, Denies cough and Denies dyspnea Integumentary/Breasts: Skin/Breast: Denies lesions and Denies rash Exam Const: General: comfortable and no acute distress; No confusion Nutritional Appearance: average body habitus Orientation/consciousness: patient oriented x3 and No confusion GI: Inspection: normal to inspection, non-distended and scar GI Palp: Yes Soft to palpation, Yes Tenderness to palpation present (GI) (Both lower quadrants, right greater than left), Yes Guarding due to palpation present (GI) (Mild right lower quadrant guarding), No Hernia present, No Palpable mass present, No Ascites present and No Rebound tenderness present Auscultation: Hypoactive bowel sounds present Neuro: General: patient oriented x3, no focal motor deficits and No confusion Extrem: General: no calf tenderness and no edema Psych: Affect: normal affect Insight: Good insight present (Psych) Judgement: Good judgement present (Psych) Objective Data Vital Signs Vital Signs: Vital Signs - 24 hr 12/05/21 11:55 12/05/21 16:00 12/05/21 20:00 Temperature 36.5 C 36.1 C L 36.3 C L Pulse Rate 104 H 92 95 Respiratory Rate 16 16 16 Blood Pressure 136/74 144/78 H 148/84 H Pulse Oximetry 92 94 96 12/06/21 00:00 12/06/21 04:00 Temperature 37.3 C 36.6 C Pulse Rate 93 97 Respiratory Rate 16 20 Blood Pressure 120/69 138/75 Pulse Oximetry 95 95 Intake/Output Intake/Output: Intake & Output 12/03/21 12/04/21 12/05/21 12/06/21 23:59 23:59 23:59 23:59 Intake Total 2410 2200 Output Total 1800 775 Balance 610 1425 Meds/Results Medications: Active Medications Generic Name Dose Route Start Last Admin Trade Name Freq PRN Reason Stop Dose Admin Calcium Carbonate 500 mg 12/06/21 09:00 12/06/21 08:25 Calcium Carbonate (Oscal) 500 Mg Tablet PO 500 mg DAILY RADHA Administration Fenofibrate 160 mg 12/05/21 21:00 12/05/21 20:29 Fenofibrate 160 Mg Tablet PO 160 mg HS RADHA Administration Fentanyl 25 mcg 12/07/21 09:00 Fentanyl (*Crx) 25 Mcg Patch TRANSDERM Q72H RADHA Fentanyl Citrate 50 mcg 12/05/21 00:40 12/06/21 06:00 Fentanyl Citrate Inj (*Crx) 100 Mcg/2 Ml Vial IV PUSH 50 mcg Q2H PRN
[2021-12-06] MEDS: POTASSIUM CHLORIDE 20 MEQ PACKET (FOR LIQUID) 40 MEQ PO (10:01)
--- NOTE | 2021-12-06 10:38 | PM.IMPN ---
Progress Note: A&P Assessment and Plan (1) Abdominal pain, acute, right lower quadrant: Code(s): R10.31 - Right lower quadrant pain Status: Acute Assessment and Plan: Likely due to perforated viscus but also has metastatic cancer with chronic pain and wears a fentanyl patch 25 mcg at home. -Appreciate surgery recommendations -Continue Zosyn -Discontinue fentanyl IV -Ordered oxycodone 5 q4h prn (2) Perforated viscus: Code(s): R19.8 - Other specified symptoms and signs involving the digestive system and abdomen Status: Acute Assessment and Plan: History of radiation to the spine and two other locations. Does not appear to have surrounding abscess on CT abdomen pelvis. Blood cultures with no growth. -Continue zosyn -Appreciate General Surgery recommendations (3) Antineoplastic chemotherapy induced anemia: Code(s): D64.81 - Anemia due to antineoplastic chemotherapy; T45.1X5A - Adverse effect of antineoplastic and immunosuppressive drugs, initial encounter Status: Acute Assessment and Plan: Has a chemotherapy schedule of three weeks on and one week off. Last chemotherapy just before admission. (4) Esophageal cancer: Onset Date: 02/2019 Code(s): C15.9 - Malignant neoplasm of esophagus, unspecified Status: Chronic Assessment and Plan: Poorly differentiated adenocarcinoma stage IV.? Managed at [place].? With most recent April 2021 CT scan at [place] demonstrating interval development of mediastinal hilar lymphadenopathy suspicious for metastatic disease.? 2.5 cm left adrenal nodule also suspicious for metastatic disease.? Interval development of lesion in the right aspect of L3 vertebral body suspicious for metastatic disease and enhancement anterior aspect left lobe of the liver new from prior exam.? The patient's disease had previously been stable October 2020. (5) Obstructive sleep apnea on CPAP: Code(s): G47.33 - Obstructive sleep apnea (adult) (pediatric); Z99.89 - Dependence on other enabling machines and devices Status: Acute Assessment and Plan: Continue CPAP. (6) Diabetes mellitus: Qualifiers: Diabetes mellitus type: type 2 Diabetes mellitus [facility] insulin use: without [facility] Diabetes mellitus complication status: without complication Qualified Code(s): E11.9 - Type 2 diabetes mellitus without complications Code(s): E11.9 - Type 2 diabetes mellitus without complications Status: Acute Assessment and Plan: On metformin at home. -SSI with accuchecks (7) Pulmonary embolism: Code(s): I26.99 - Other pulmonary embolism without acute cor pulmonale Status: Acute Assessment and Plan: 09/11/21 CTA noted recurrence of pulmonary embolus per oncology note. Takes rivaroxaban but holding per surgery recommendations at this time. Subjective Date/time seen: 12/06/21 15:38 Patient at bedside. Patient says he still has abdominal pain when he moves but is fine at rest. has a copy of patient medication list, which shows oxycodone 5 mg q4h for pain control plus the fentanyl 25 mcg transdermal. Has many questions about diverticulitis and what could have caused his microperforation. All questions answered. Review of Systems Gastrointestinal: Gastrointestinal: Reports abdominal pain Exam Narrative: GENERAL: NAD, cooperative HEENT: Normocephalic, atraumatic, anicteric, nares clear, oropharynx moist and clear, dentition normal NECK: Supple CV: Normal S1, S2, RRR, No MRG RESP: CTAB, Normal work of breathing. EXTREMITIES: CN 2-12 grossly intact. Objective Data Vital Signs Vital Signs: Vital Signs - 24 hr 12/05/21 16:00 12/05/21 20:00 12/06/21 00:00 Temperature 36.1 C L 36.3 C L 37.3 C Pulse Rate 92 95 93 Respiratory Rate 16 16 16 Blood Pressure 144/78 H 148/84 H 120/69 Pulse Oximetry 94 96 95 O
[2021-12-06] MEDS: oxyCODONE HCL (*CRX) 5 MG TAB IR PO ×3 (11:13→21:02)
[2021-12-06] MEDS: ALBUTEROL SULFATE NEB 2.5 MG/3 ML INH INHALATION ×2 (12:39→21:20)
[2021-12-06] MEDS: IPRATROPIUM BR 0.02% INH SOLN 0.5 MG/2.5 ML VIAL INHALATION ×2 (12:39→21:21)
[2021-12-06] MEDS: LIDOCAINE HCL 2% VISC SOLN 15 ML UDC MUCOUS MEM (16:33)
[2021-12-06] MEDS: TAMSULOSIN HCL 0.4 MG CAPSULE PO (21:04)
[2021-12-06] MEDS: FENOFIBRATE 160 MG TABLET PO (21:04)
[2021-12-06] MEDS: traZODone HCL 50 MG TABLET 150 MG PO (21:04)
[2021-12-07] VITALS (11 sets, daily range): BP systolic 141–159; BP diastolic 79–83; PULSE 87–107; RESP 16–20; TEMP 36.4–37.5; O2SAT 97–98
[2021-12-07] MEDS: oxyCODONE HCL (*CRX) 5 MG TAB IR PO ×6 (01:45→22:54)
[2021-12-07] MEDS: PIPERACILLIN/TAZOBACTAM SOD 4.5 GM in SODIUM CHLORIDE 0.9% IV 100 ML 200 ML IVPB ×2 (03:36→21:11)
[2021-12-07] MEDS: IPRATROPIUM BR 0.02% INH SOLN 0.5 MG/2.5 ML VIAL INHALATION ×5 (04:30→20:05)
[2021-12-07] MEDS: ALBUTEROL SULFATE NEB 2.5 MG/3 ML INH INHALATION ×5 (04:40→20:05)
[2021-12-07 06:00] LABS: Hemoglobin 8.1 g/dL (14.0-18.0); Mean Corpuscular HGB Conc 31.2 g/dl (32-36); Mean Corpuscular Hemoglobin 29.8 pg (26-34); Mean Corpuscular Volume 95.6 fl (80-100); Mean Platelet Volume 10.6 fl (7.4-10.4); Platelet Count Result 216 k/mm3 (150-375); Red Blood Count 2.72 M/mm3 (4.6-6.20); White Blood Count 2.2 K/mm3 (4.5-10.0)
[2021-12-07 06:18] LABS: Anion Gap 9 mmol/L (8-16); Blood Urea Nitrogen 15 mg/dL (9-20); Calcium 7.1 mg/dL (8.4-10.2); Carbon Dioxide 24 mmol/L (22-30); Chloride 103 mmol/L (98-107); Estimated CRCL calculation 95 ml/min; Estimated Glomerular Filt Rate > 60; Glucose 114 mg/dL (65-110); Potassium 2.6 mmol/L (3.4-5.0); Sodium 136 mmol/L (137-145)
--- NOTE | 2021-12-07 07:23 | PM.IMPN ---
Progress Note: A&P Assessment and Plan (1) Abdominal pain, acute, right lower quadrant: Code(s): R10.31 - Right lower quadrant pain Status: Acute Assessment and Plan: Likely due to perforated viscus but also has metastatic cancer with chronic pain and wears a fentanyl patch 25 mcg at home. -Appreciate surgery recommendations -Continue Zosyn -Fentanyl 25 mcg q4h PRN pain 7-10 -Ordered oxycodone 5 mg q4h PRN pain 4-6 (2) Perforated viscus: Code(s): R19.8 - Other specified symptoms and signs involving the digestive system and abdomen Status: Acute Assessment and Plan: History of radiation to the spine and two other locations. Does not appear to have surrounding abscess on CT abdomen pelvis. Blood cultures with no growth. -Continue zosyn -Appreciate General Surgery recommendations (3) Antineoplastic chemotherapy induced anemia: Code(s): D64.81 - Anemia due to antineoplastic chemotherapy; T45.1X5A - Adverse effect of antineoplastic and immunosuppressive drugs, initial encounter Status: Acute Assessment and Plan: Has a chemotherapy schedule of three weeks on and one week off. Last chemotherapy just before admission. (4) Esophageal cancer: Onset Date: 02/2019 Code(s): C15.9 - Malignant neoplasm of esophagus, unspecified Status: Chronic Assessment and Plan: Poorly differentiated adenocarcinoma stage IV.? Managed at [place].? With most recent April 2021 CT scan at [place] demonstrating interval development of mediastinal hilar lymphadenopathy suspicious for metastatic disease.? 2.5 cm left adrenal nodule also suspicious for metastatic disease.? Interval development of lesion in the right aspect of L3 vertebral body suspicious for metastatic disease and enhancement anterior aspect left lobe of the liver new from prior exam.? The patient's disease had previously been stable October 2020. (5) Obstructive sleep apnea on CPAP: Code(s): G47.33 - Obstructive sleep apnea (adult) (pediatric); Z99.89 - Dependence on other enabling machines and devices Status: Acute Assessment and Plan: Continue CPAP. (6) Diabetes mellitus: Qualifiers: Diabetes mellitus type: type 2 Diabetes mellitus [facility] insulin use: without [facility] use Diabetes mellitus complication status: without complication Qualified Code(s): E11.9 - Type 2 diabetes mellitus without complications Code(s): E11.9 - Type 2 diabetes mellitus without complications Status: Acute Assessment and Plan: On metformin at home. -SSI with accuchecks (7) Pulmonary embolism: Code(s): I26.99 - Other pulmonary embolism without acute cor pulmonale Status: Acute Assessment and Plan: 09/11/21 CTA noted recurrence of pulmonary embolus per oncology note. Takes rivaroxaban but holding per surgery recommendations at this time. Subjective Date/time seen: 12/07/21 07:23 Patient reports his abdominal pain is siginificantly improved compared to when he came to the emergency department but is still significant when he walks or moves. Says he has no abdominal pain when he is sitting in bed. Says his breathing improved with the breathing treatment. Says he has had chronic congestion since starting chemotherapy. Patient is requesting intravenous fentanyl in addition to his baseline oxycodone, fentanyl transdermal and ibuprofen. Discussed with patient that pain control for his abdominal pain with additional pain medication beyond his normal dose is appropriate but that eventually he will have to transition back to his scheduled oxycodone, fentanyl transdermal and ibuprofen prior to discharge. Discussed with the patient that his oral oxycodone was added yesterday to restarted in an attempt to decrease the need for intravenous pain medication. Patient verbalized understanding. Review of Systems Gastroi
[2021-12-07] MEDS: POTASSIUM CHLORIDE 20 MEQ TABLET 40 MEQ PO (07:45)
[2021-12-07] MEDS: POTASSIUM CHLORIDE 20 MEQ PACKET (FOR LIQUID) 40 MEQ PO (07:46)
[2021-12-07] MEDS: POTASSIUM CHLORIDE INJ 40 MEQ in SODIUM CHLORIDE 0.9% IV 500 ML 130 MEQ IVPB (07:48)
[2021-12-07] MEDS: PIPERACILLIN/TAZOBACTAM SOD 4.5 GM in SODIUM CHLORIDE 0.9% IV 100 ML IVPB ×2 (10:13→14:35)
[2021-12-07] MEDS: fentaNYL (*CRX) 25 MCG PATCH TRANSDERM (10:13)
--- NOTE | 2021-12-07 10:15 | PM.PNGS ---
Progress Note: A&P Assessment and Plan (1) Bowel perforation: Code(s): K63.1 - Perforation of intestine (nontraumatic) Status: Acute Assessment and Plan: certainly not getting worse. Patient still has some tenderness but overall improving. Will advance to full liquids. Recheck labs again tomorrow. Is requiring narcotic analgesics p.r.n. for pain in the right lower quadrant. I discussed the request for fentanyl with Dr. Saleem, hospitalist. (2) Esophageal cancer: Onset Date: 02/2019 Code(s): C15.9 - Malignant neoplasm of esophagus, unspecified Status: Chronic (3) Pulmonary embolism: Code(s): I26.99 - Other pulmonary embolism without acute cor pulmonale Status: Acute Assessment and Plan: Xarelto continues on hold (4) Antineoplastic chemotherapy induced anemia: Code(s): D64.81 - Anemia due to antineoplastic chemotherapy; T45.1X5A - Adverse effect of antineoplastic and immunosuppressive drugs, initial encounter Status: Acute Assessment and Plan: red cell and white cell counts low but stable. Subjective Subjective Date/Time Seen: 12/07/21 10:15 Patient reports: still having pain ( Upset his fentanyl was discontinued. Overall, pain is much better.), tolerating liquids well ( Would like full liquids), flatus, no bowel movement and afebrile Review of Systems Review of Systems: All systems reviewed & are unremarkable except as noted in HPI and below ( HPI) Exam Const: General: comfortable and no acute distress; No confusion Nutritional Appearance: average body habitus Orientation/consciousness: patient oriented x3 and No confusion GI: Inspection: normal to inspection, non-distended and scar GI Palp: Yes Soft to palpation, Yes Tenderness to palpation present (GI) ( cloth finishing range back tender right lower quadrant with mild guarding), Yes Guarding due to palpation present (GI) and No Rebound tenderness present Neuro: General: patient oriented x3, no focal motor deficits and No confusion Extrem: General: no calf tenderness and no edema Psych: Affect: normal affect Insight: Good insight present (Psych) Judgement: Good judgement present (Psych) Objective Data Vital Signs Vital Signs: Vital Signs - 24 hr 12/06/21 12:42 12/06/21 12:43 12/06/21 14:00 Temperature 36.6 C Pulse Rate 92 94 Respiratory Rate 22 H Blood Pressure 146/74 H Pulse Oximetry 95 96 Oxygen Delivery Room Air 12/06/21 21:21 12/06/21 21:59 12/07/21 04:30 Temperature 37.1 C Pulse Rate 88 96 91 Respiratory Rate 16 16 18 Blood Pressure 162/89 H Pulse Oximetry 97 Oxygen Delivery 12/07/21 05:03 12/06/21 21:40 12/07/21 06:00 Temperature 37.5 C Pulse Rate 90 86 107 H Respiratory Rate 18 16 16 Blood Pressure 141/79 H Pulse Oximetry 97 Oxygen Delivery 12/07/21 07:35 Temperature Pulse Rate 88 Respiratory Rate 18 Blood Pressure Pulse Oximetry Oxygen Delivery Intake/Output Intake/Output: Intake & Output 12/04/21 12/05/21 12/06/21 12/07/21 23:59 23:59 23:59 23:59 Intake Total 2410 4340 200 Output Total 1800 1425 1075 Balance 610 0925 -877 Meds/Results Medications: Active Medications Generic Name Dose Route Start Last Admin Trade Name Freq PRN Reason Stop Dose Admin Albuterol 2.5 mg 12/06/21 12:00 12/07/21 09:53 Albuterol Sulfate Neb 2.5 Mg/3 Ml Inh INHALATION Not Given Q4HRT [facility] Calcium Carbonate 500 mg 12/06/21 09:00 12/06/21 08:25 Calcium Carbonate (Oscal) 500 Mg Tablet PO 500 mg DAILY RADHA Administration Fenofibrate 160 mg 12/05/21 21:00 12/06/21 21:04 Fenofibrate 160 Mg Tablet PO 160 mg HS RADHA Administration Fentanyl 25 mcg 12/07/21 09:00 Fentanyl (*Crx) 25 Mcg Patch TRANSDERM Q72H [facility] Hydrochlorothiazide 12.5 mg 12/05/21 09:15 12/06/21 08:25 Hydrochlorothiazide 12.5 Mg Capsule PO 12.5 mg DAILY [facility] Administration Piperacillin Sod/Tazobactam 100 mls @
[2021-12-07] MEDS: POTASSIUM CHLORIDE 20 MEQ PACKET (FOR LIQUID) PO (10:16)
[2021-12-07] MEDS: CALCIUM CARBONATE (OSCAL) 500 MG TABLET PO (10:16)
[2021-12-07] MEDS: VITAMIN B COMPLEX/VIT C CAPSULE 1 EACH PO (10:16)
[2021-12-07] MEDS: LORATADINE 10 MG TABLET PO (10:16)
[2021-12-07] MEDS: MAGNESIUM OXIDE 400 MG TABLET PO (10:16)
[2021-12-07] MEDS: PANTOPRAZOLE 40 MG TABLET PO ×2 (10:16→21:11)
[2021-12-07] MEDS: hydroCHLOROthiazide 12.5 MG CAPSULE PO (10:16)
[2021-12-07] MEDS: LIDOCAINE HCL 2% VISC SOLN 15 ML UDC MUCOUS MEM (10:17)
[2021-12-07] MEDS: MICONAZOLE NITRATE 2% CREAM 30 GM TUBE 1 APPLIC TOPICAL ×2 (10:17→21:13)
[2021-12-07] MEDS: CALCIUM CARBONATE (TUMS) 500 MG (200 MG ELEMENTAL) PO (12:23)
[2021-12-07] MEDS: POTASSIUM CHLORIDE 20 MEQ TABLET.ER 40 MEQ PO ×2 (12:23→18:29)
[2021-12-07] MEDS: TAMSULOSIN HCL 0.4 MG CAPSULE PO (21:11)
[2021-12-07] MEDS: traZODone HCL 50 MG TABLET 150 MG PO (21:11)
[2021-12-07] MEDS: FENOFIBRATE 160 MG TABLET PO (21:11)
--- NOTE | 2021-12-07 22:46 | PC.NURSE ---
Pt is here for bowel perforation. Pt states that he knows how it works and that he is in pain. Pt participated and contributed to plan of care for the shift. Pt states he has no needs at this time. Pt reports that he will be someone who calls regularly for his pain medication . Pt has complaints of pain and states that it is chronic. Will continue to monitor pt.
[2021-12-08] VITALS (11 sets, daily range): BP systolic 168–169; BP diastolic 86–92; PULSE 93–111; RESP 16–20; TEMP 36.3–36.8; O2SAT 94–98
[2021-12-08] MEDS: ALBUTEROL SULFATE NEB 2.5 MG/3 ML INH INHALATION ×4 (00:03→13:20)
[2021-12-08] MEDS: IPRATROPIUM BR 0.02% INH SOLN 0.5 MG/2.5 ML VIAL INHALATION ×4 (00:03→13:20)
[2021-12-08] MEDS: oxyCODONE HCL (*CRX) 5 MG TAB IR PO ×4 (03:13→16:51)
[2021-12-08] MEDS: PIPERACILLIN/TAZOBACTAM SOD 4.5 GM in SODIUM CHLORIDE 0.9% IV 100 ML 200 ML IVPB ×2 (03:13→08:06)
[2021-12-08 04:28] LABS: Hematocrit 24.8 % (42.0-52.0); Hemoglobin 7.8 g/dL (14.0-18.0); Mean Corpuscular HGB Conc 31.5 g/dl (32-36); Mean Corpuscular Hemoglobin 30.1 pg (26-34); Mean Corpuscular Volume 95.8 fl (80-100); Mean Platelet Volume 9.8 fl (7.4-10.4); Platelet Count Result 188 k/mm3 (150-375); Red Blood Count 2.59 M/mm3 (4.6-6.20)
[2021-12-08 04:34] LABS: White Blood Count 1.7 K/mm3 (4.5-10.0)
[2021-12-08 04:36] LABS: Sodium 137 mmol/L (137-145)
[2021-12-08 04:54] LABS: Anion Gap 7 mmol/L (8-16); Blood Urea Nitrogen 11 mg/dL (9-20); Calcium 7.2 mg/dL (8.4-10.2); Carbon Dioxide 24 mmol/L (22-30); Chloride 106 mmol/L (98-107); Estimated CRCL calculation 95 ml/min; Estimated Glomerular Filt Rate > 60; Glucose 103 mg/dL (65-110); Potassium 3.8 mmol/L (3.4-5.0)
[2021-12-08] MEDS: POTASSIUM CHLORIDE 20 MEQ TABLET.ER 40 MEQ PO ×2 (08:06→12:37)
[2021-12-08] MEDS: LORATADINE 10 MG TABLET PO (08:07)
[2021-12-08] MEDS: PANTOPRAZOLE 40 MG TABLET PO (08:07)
[2021-12-08] MEDS: CALCIUM CARBONATE (OSCAL) 500 MG TABLET PO (08:07)
[2021-12-08] MEDS: MICONAZOLE NITRATE 2% CREAM 30 GM TUBE 1 APPLIC TOPICAL (08:07)
[2021-12-08] MEDS: hydroCHLOROthiazide 12.5 MG CAPSULE PO (08:07)
[2021-12-08] MEDS: CALCIUM CARBONATE (TUMS) 500 MG (200 MG ELEMENTAL) PO (08:07)
[2021-12-08] MEDS: VITAMIN B COMPLEX/VIT C CAPSULE 1 EACH PO (08:07)
[2021-12-08] MEDS: MAGNESIUM OXIDE 400 MG TABLET PO (08:07)
--- NOTE | 2021-12-08 08:44 | PM.IMPN ---
Progress Note: A&P Assessment and Plan (1) Abdominal pain, acute, right lower quadrant: Code(s): R10.31 - Right lower quadrant pain Status: Acute Assessment and Plan: Likely due to perforated viscus but also has metastatic cancer with chronic pain and wears a fentanyl patch 25 mcg at home. -Appreciate surgery recommendations -Continue Zosyn -Fentanyl 25 mcg q4h PRN pain 7-10 -Ordered oxycodone 5 mg q4h PRN pain 4-6 (2) Sputum culture positive for Pseudomonas: Code(s): R84.5 - Abnormal microbiological findings in specimens from respiratory organs and thorax Status: Acute Assessment and Plan: Sensitive to zosyn. (3) Perforated viscus: Code(s): R19.8 - Other specified symptoms and signs involving the digestive system and abdomen Status: Acute Assessment and Plan: History of radiation to the spine and two other locations. Does not appear to have surrounding abscess on CT abdomen pelvis. Blood cultures with no growth. -Continue zosyn -Appreciate General Surgery recommendations (4) Antineoplastic chemotherapy induced anemia: Code(s): D64.81 - Anemia due to antineoplastic chemotherapy; T45.1X5A - Adverse effect of antineoplastic and immunosuppressive drugs, initial encounter Status: Acute Assessment and Plan: Has a chemotherapy schedule of three weeks on and one week off. Last chemotherapy just before admission. (5) Esophageal cancer: Onset Date: 02/2019 Code(s): C15.9 - Malignant neoplasm of esophagus, unspecified Status: Chronic Assessment and Plan: Poorly differentiated adenocarcinoma stage IV.? Managed at [facility].? With most recent April 2021 CT scan at [facility] demonstrating interval development of mediastinal hilar lymphadenopathy suspicious for metastatic disease.? 2.5 cm left adrenal nodule also suspicious for metastatic disease.? Interval development of lesion in the right aspect of L3 vertebral body suspicious for metastatic disease and enhancement anterior aspect left lobe of the liver new from prior exam.? The patient's disease had previously been stable October 2020. (6) Obstructive sleep apnea on CPAP: Code(s): G47.33 - Obstructive sleep apnea (adult) (pediatric); Z99.89 - Dependence on other enabling machines and devices Status: Acute Assessment and Plan: Continue CPAP. (7) Diabetes mellitus: Qualifiers: Diabetes mellitus complication status: without complication Diabetes mellitus mcc insulin use: without terminal clerk use Diabetes mellitus type: type 2 Qualified Code(s): E11.9 - Type 2 diabetes mellitus without complications Code(s): E11.9 - Type 2 diabetes mellitus without complications Status: Acute Assessment and Plan: On metformin at home. -SSI with accuchecks (8) Pulmonary embolism: Code(s): I26.99 - Other pulmonary embolism without acute cor pulmonale Status: Acute Assessment and Plan: 09/11/21 CTA noted recurrence of pulmonary embolus per oncology note. Takes rivaroxaban but holding per surgery recommendations at this time. Subjective Date/time seen: 12/08/21 08:45 Exam Narrative: GENERAL: NAD, cooperative HEENT: Normocephalic, atraumatic, anicteric, nares clear, oropharynx moist and clear, dentition normal NECK: Supple CV: Normal S1, S2, RRR, No MRG RESP: CTAB, Normal work of breathing. EXTREMITIES: CN 2-12 grossly intact. Objective Data Vital Signs Vital Signs: Vital Signs - 24 hr 12/07/21 12:44 12/07/21 10:00 12/07/21 14:30 Temperature 36.5 C Pulse Rate 89 98 Respiratory Rate 18 18 Blood Pressure 159/83 H Pulse Oximetry 97 Oxygen Delivery Room Air 12/07/21 15:40 12/07/21 20:08 12/07/21 20:10 Temperature Pulse Rate 91 94 Respiratory Rate 18 20 Blood Pressure Pulse Oximetry 98 Oxygen Delivery Room Air
[2021-12-08] MEDS: CENTRAL LINE FLUSH 10 ML IV PUSH (12:37)
--- NOTE | 2021-12-08 13:41 | PM.PNGS ---
Progress Note: A&P Assessment and Plan (1) Perforated viscus: Code(s): R19.8 - Other specified symptoms and signs involving the digestive system and abdomen Status: Acute Assessment and Plan: exam benign, likely sealed microperforation, ADAT, ok to dc home if gopi diet, f/u 2 wks, no need for further abx from abd standpoint Subjective Subjective Date/Time Seen: 12/08/21 13:41 feels much better, pain largely resolved, gopi full liquids, +bowel fxn Review of Systems Review of Systems: All systems reviewed & are unremarkable except as noted in HPI and below Exam Const: General: cooperative, comfortable and no acute distress Resp: Auscultation: clear to auscultation bilaterally Cardio: Rate: regular rate Rhythm: regular rhythm GI: Inspection: normal to inspection and non-distended GI Palp: No abdominal tenderness, Yes Soft to palpation, No Tenderness to palpation present (GI), No Guarding due to palpation present (GI) and No Rigid due to palpation Objective Data Vital Signs Vital Signs: Vital Signs - 24 hr 12/07/21 14:30 12/07/21 15:40 12/07/21 20:08 Temperature 36.5 C Pulse Rate 98 91 94 Respiratory Rate 18 18 20 Blood Pressure 159/83 H Pulse Oximetry 97 Oxygen Delivery 12/07/21 20:10 12/07/21 20:14 12/07/21 20:00 Temperature Pulse Rate 87 Respiratory Rate 20 Blood Pressure Pulse Oximetry 98 Oxygen Delivery Room Air Room Air 12/07/21 21:55 12/08/21 00:06 12/08/21 00:12 Temperature 36.4 C L Pulse Rate 94 96 93 Respiratory Rate 20 16 16 Blood Pressure 154/79 H Pulse Oximetry 98 Oxygen Delivery 12/08/21 04:12 12/08/21 04:22 12/08/21 05:44 Temperature 36.8 C Pulse Rate 102 H 99 103 H Respiratory Rate 16 16 20 Blood Pressure 168/92 H Pulse Oximetry 94 Oxygen Delivery 12/08/21 08:50 12/08/21 08:55 12/08/21 08:58 Temperature Pulse Rate 99 95 Respiratory Rate 16 16 Blood Pressure Pulse Oximetry 97 Oxygen Delivery Room Air 12/08/21 08:00 Temperature Pulse Rate Respiratory Rate Blood Pressure Pulse Oximetry Oxygen Delivery Room Air Intake/Output Intake/Output: Intake & Output 12/05/21 12/06/21 12/07/21 12/08/21 23:59 23:59 23:59 23:59 Intake Total 2410 4340 1260 827 Output Total 9932 1428 1477 1677 Balance 610 3725 -498 -404 Meds/Results Medications: Active Medications Generic Name Dose Route Start Last Admin Trade Name Freq PRN Reason Stop Dose Admin Albuterol 2.5 mg 12/06/21 12:00 12/08/21 08:52 Albuterol Sulfate Neb 2.5 Mg/3 Ml Inh INHALATION 2.5 mg Q4HRT RADHA Administration Calcium Carbonate 500 mg 12/06/21 09:00 12/08/21 08:07 Calcium Carbonate (Oscal) 500 Mg Tablet PO 500 mg DAILY RADHA Administration Fenofibrate 160 mg 12/05/21 21:00 12/07/21 21:11 Fenofibrate 160 Mg Tablet PO 160 mg HS RADHA Administration Fentanyl 25 mcg 12/07/21 09:00 12/07/21 10:13 Fentanyl (*Crx) 25 Mcg Patch TRANSDERM 25 mcg Q72H [facility] Administration Fentanyl Citrate 25 mcg 12/07/21 10:28 Fentanyl Citrate Inj (*Crx) 100 Mcg/2 Ml Vial IV PUSH Q4H PRN Pain Rated 7-10 Heparin Sodium (Beef Lung) 50 units 12/08/21 09:00 12/08/21 08:06 Heparin Flush 50 Units/5 Ml Syringe IV PUSH 50 units QAM RADHA Administration Heparin Sodium (Beef Lung) 50 units 12/08/21 06:58 Heparin Flush 50 Units/5 Ml Syringe IV PUSH PRN PRN after intermittent infusion Heparin Sodium (Beef Lung) 50 units 12/08/21 06:58 Heparin Flush 50 Units/5 Ml Syringe IV PUSH PRN PRN after blood draws Heparin Sodium (Porcine) 500 units 12/08/21 06:58 Heparin Sodium Lock Flush 500 Units/5 Ml Syringe IV PUSH PRN PRN see comments below Hydrochlorothiazide 12.5 mg 12/05/21 09:15 12/08/21 08:07 Hydrochlorothiazide 12.5 Mg Capsule PO 12.5 mg DAILY RADHA Administration Piperacillin Sod/Tazobactam 100 mls @ 200 mls/hr 12/05/21 09:0
--- NOTE | 2021-12-08 13:50 | ECG_ITS ---
Measurements Intervals [place] Rate: 108 P: 52 GA: 148 QRS: -24 QRSD: 87 T: 45 QT: 318 QTc: 426 Interpretive Statements SINUS TACHYCARDIA BORDERLINE ECG NO PREVIOUS ECG AVAILABLE FOR COMPARISON Electronically Signed On 12-08-2021 16:26:23 CDT by Suresh Rudolph M.D.
--- NOTE | 2021-12-08 13:52 | PM.DS ---
DS: Admitting Diagnosis Discharge Date 12/08/21 Admitting Diagnosis Perforated Viscus DS: Discharge Diagnosis Discharge Diagnosis (1) Abdominal pain, acute, right lower quadrant: Code(s): R10.31 - Right lower quadrant pain Status: Acute Assessment and Plan: Likely due to perforated viscus but also has metastatic cancer with chronic pain and wears a fentanyl patch 25 mcg at home. Patient to discharge to home with his home medications of oxycodone and fentanyl transdermal 25 mcg. (2) Sputum culture positive for Pseudomonas: Code(s): R84.5 - Abnormal microbiological findings in specimens from respiratory organs and thorax Status: Acute Assessment and Plan: Sensitive to zosyn and has been on zosyn since admission. Will discharge to home with levofloxacin 750 mg daily for 7 additional days of treatment. (3) Perforated viscus: Code(s): R19.8 - Other specified symptoms and signs involving the digestive system and abdomen Status: Acute Assessment and Plan: History of radiation to the spine and two other locations. Does not appear to have surrounding abscess on CT abdomen pelvis. Blood cultures with no growth. Abdominal exam now benign and appropriate for discharge without antibiotics per General Surgery. (4) Antineoplastic chemotherapy induced anemia: Code(s): D64.81 - Anemia due to antineoplastic chemotherapy; T45.1X5A - Adverse effect of antineoplastic and immunosuppressive drugs, initial encounter Status: Acute Assessment and Plan: Has a chemotherapy schedule of three weeks on and one week off. Last chemotherapy just before admission. (5) Esophageal cancer: Onset Date: 02/2019 Code(s): C15.9 - Malignant neoplasm of esophagus, unspecified Status: Chronic Assessment and Plan: Poorly differentiated adenocarcinoma stage IV.? Managed at [facility].? With most recent April 2021 CT scan at [facility] demonstrating interval development of mediastinal hilar lymphadenopathy suspicious for metastatic disease.? 2.5 cm left adrenal nodule also suspicious for metastatic disease.? Interval development of lesion in the right aspect of L3 vertebral body suspicious for metastatic disease and enhancement anterior aspect left lobe of the liver new from prior exam.? The patient's disease had previously been stable October 2020. (6) Obstructive sleep apnea on CPAP: Code(s): G47.33 - Obstructive sleep apnea (adult) (pediatric); Z99.89 - Dependence on other enabling machines and devices Status: Acute Assessment and Plan: Continue CPAP. (7) Diabetes mellitus: Qualifiers: Diabetes mellitus complication status: without complication Diabetes mellitus penitentiary insulin use: without watermaster use Diabetes mellitus type: type 2 Qualified Code(s): E11.9 - Type 2 diabetes mellitus without complications Code(s): E11.9 - Type 2 diabetes mellitus without complications Status: Acute Assessment and Plan: On metformin at home. Will resume home medications for discharge. (8) Pulmonary embolism: Code(s): I26.99 - Other pulmonary embolism without acute cor pulmonale Status: Acute Assessment and Plan: 09/11/21 CTA noted recurrence of pulmonary embolus per oncology note. Takes rivaroxaban but held during hospitalizaton per surgery recommendations. Resumed rivaroxaban for discharge. DS: Summary Hospital Course Reason for hospitalization: Perforated Viscus Hospital Course: 65M with a past medical history of Stage IV esophageal cancer s/p chemotherapy and radiation, hyperlipidemia, obstructive sleep apnea, pulmonary embolism 06/2021, benign prostatic hyperplasia, diabetes and hypertension who presented to the emergency department with sudden onset abdominal pain and was found to have a small perforation near the anastamosis of a previous a
[2021-12-11 18:03] LABS: Ionized Calcium 4.6 mg/dL (4.8-5.6)
== END 2021-12-08 17:43 | disposition home or self-care (01) | DRG 394 ==
LOC: ANHED 12-05 01:20 → ANH3MEDSUR 12-05 04:06
PROVIDERS: Emergency Medicine; Surgery; Admitting Provider Internal Medicine; Emergency Provider Preventive Medicine Aerospace Medicine; PCP Emergency Medicine; Visit Provider Family Medicine
DX: K63.1 Perforation of intestine (nontraumatic) (principal); C15.9 Malignant neoplasm of esophagus, unspecified; C79.51 Secondary malignant neoplasm of bone; C77.1 Secondary and unspecified malignant neoplasm of intrathoracic lymph nodes; C79.72 Secondary malignant neoplasm of left adrenal gland; R19.8 Other specified symptoms and signs involving the digestive system and abdomen; B96.5 Pseudomonas (aeruginosa) (mallei) (pseudomallei) as the cause of diseases classified elsewhere; Z20.822 Contact with and (suspected) exposure to COVID-19; D64.81 Anemia due to antineoplastic chemotherapy; T45.1X5A Adverse effect of antineoplastic and immunosuppressive drugs, initial encounter; G47.33 Obstructive sleep apnea (adult) (pediatric); E11.9 Type 2 diabetes mellitus without complications; N40.1 Benign prostatic hyperplasia with lower urinary tract symptoms; R35.1 Nocturia; I10 Essential (primary) hypertension; E78.2 Mixed hyperlipidemia; K76.0 Fatty (change of) liver, not elsewhere classified; Z86.718 Personal history of other venous thrombosis and embolism; Z79.01 Long term (current) use of anticoagulants; Z90.49 Acquired absence of other specified parts of digestive tract; Z87.891 Personal history of nicotine dependence; Z85.89 Personal history of malignant neoplasm of other organs and systems; Z86.711 Personal history of pulmonary embolism
CPT/HCPCS: 36415; 74176; 80048; 80053; 81001; 82330; 82948; 83605; 83690; 85025; 85027; 87040; 87070; 87077; 87186; 87205; 93005; 94640; 96374; 96375; 96376; 99285; A9270; C9803; G0378; J1642; J1720; J2405; J2543; J3010; J3480; J7030; J7040; U0003; U0005

== ENCOUNTER 2021-12-10 14:36 | Outpatient (CLI) | payer OTHER, SELFPAY ==
--- NOTE | 2021-12-10 14:45 | ECHO_ITS ---
Patient Info Name: Nabil Monson Age: 65 years : 1955 Gender: Male Ht: 70 in Wt: 190 lbs BSA: 2.08 m2 HR: 119 bpm BP: 153 / 95 mmHg Heart Rhythm: Tachycardia Technical Quality: Fair Exam Date: 12/10/2021 3:05 PM Exam Location: [facility] Pulmonary Patient Status: Outpatient Admit Date: 12/10/2021 Staff Ordering Physician: Rob Fisher MD Director Industrial Relations: Katerin Box RDCS Attending Provider: Rob Fisher MD Referring Physician: Phillip GUZMAN; Exam Type: CA echo doppler color flow Study Info Indications R60.0 - Localized edema Complete two-dimensional, color flow and Doppler transthoracic echocardiogram is performed. Summary 1. Complete two-dimensional, color flow and Doppler transthoracic echocardiogram is performed. 2. Left ventricular chamber dimension is normal. 3. Left ventricular systolic function is normal, estimated at 60-65%. 4. There is moderate concentric increased left ventricular wall thickness. 5. The left ventricular diastolic function is normal. 6. E/e' 9 is minimally elevated. 7. There is mild aortic valve sclerosis. 8. The mitral valve has mildly calcified annulus. 9. There is trace tricuspid valve regurgitation. 10. No pulmonary hypertension, estimated pulmonary arterial systolic pressure is 28 mmHg. Left Ventricle E/e' 9 is minimally elevated. Left ventricular chamber dimension is normal. Left ventricular systolic function is normal, estimated at 60-65%. There is moderate concentric increased left ventricular wall thickness. The left ventricular diastolic function is normal. Right Ventricle Right ventricular systolic function is normal and with normal TAPSE 2.0 cm. Right ventricular chamber dimension is normal. Left Atria Left atrial chamber dimension is normal. Right Atria Right atrial chamber dimension is normal. Aortic Valve The aortic valve is trileaflet. There is mild aortic valve sclerosis. There is no aortic valve stenosis. There is no aortic valve regurgitation. Pulmonic Valve There is no pulmonic regurgitation. Mitral Valve The mitral valve has mildly calcified annulus. There is no mitral valve stenosis. There is no mitral valve regurgitation. Tricuspid Valve There is trace tricuspid valve regurgitation. No pulmonary hypertension, estimated pulmonary arterial systolic pressure is 28 mmHg. Pericardium/Pleural There is no pericardial effusion. Inferior Vena Cava Normal inferior vena cava with >50% collapse upon inspiration consistent with normal right atrial pressure, 5 mmHg. Aorta The aortic root size at the sinus of Valsalva is normal. Left Ventricular Outflow Tract Name Value Normal LVOT 2D LVOT Diameter 2.1 cm LVOT Doppler LVOT Peak Gradient 8 mmHg LVOT Mean Gradient 3 mmHg LVOT VTI 19 cm LVOT VTI/AV VTI Ratio 0.8 LVOT Stroke Volume 69 ml LVOT CO 6.7 l/min LVOT CI 3.2 l/min/m2 Pulmonic V
== END 2021-12-10 14:37 | disposition home or self-care (01) ==
LOC: ANHCARD 14:37
PROVIDERS: PCP Emergency Medicine; Visit Provider Emergency Medicine
DX: R60.0 Localized edema (principal)
CPT/HCPCS: 93306

== ENCOUNTER 2023-02-01 09:41 | Outpatient (CLI) | payer MEDICARE, SELFPAY ==
[2023-02-09 11:40] LABS: Testosterone Free 27.9 pg/mL (35.0-155.0); Testosterone Total 129 ng/dL (250-1100)
== END 2023-02-01 09:42 | disposition home or self-care (01) ==
PROVIDERS: PCP Emergency Medicine; Visit Provider Nurse Practitioner Family
DX: R35.1 Nocturia (principal)
CPT/HCPCS: 36415; 84402; 84403

== ENCOUNTER 2023-03-25 07:56 | Outpatient (CLI) | payer MEDICARE, SELFPAY ==
[2023-03-25 19:43] LABS: Influenza A QL RT-PCR Negative (Negative); Influenza B QL RT-PCR Negative (Negative); RSV RNA, RT-PCR Negative (Negative); SARS-CoV-2 RNA PCR Negative (Negative)
== END 2023-03-25 07:57 | disposition home or self-care (01) ==
LOC: ANHGOSHLAB 07:58
PROVIDERS: PCP Emergency Medicine; Visit Provider Emergency Medicine
DX: J02.9 Acute pharyngitis, unspecified (principal); Z20.822 Contact with and (suspected) exposure to COVID-19
CPT/HCPCS: 87637

== ENCOUNTER 2023-06-29 09:04 | Outpatient (CLI) | payer MEDICARE, SELFPAY ==
[2023-06-29 18:40] LABS: Hematocrit 38.1 % (42.0-52.0); Hemoglobin 11.9 g/dL (14.0-18.0); Mean Corpuscular HGB Conc 31.2 g/dl (32-36); Mean Corpuscular Hemoglobin 30.4 pg (26-34); Mean Corpuscular Volume 97.2 fl (80-100); Mean Platelet Volume 10.5 fl (7.4-10.4); Platelet Count Result 218 k/mm3 (150-375); Red Blood Count 3.92 M/mm3 (4.6-6.20); Red Cell Distribution Width 16.5 % (11.5-14.5); White Blood Count 4.5 K/mm3 (4.5-10.0)
[2023-06-29 20:53] LABS: Alanine Aminotransferase 35 U/L (6-50); Alkaline Phosphatase 65 U/L (38-126); Anion Gap 6 mmol/L (4-12); Aspartate Amino Transferase 36 U/L (17-59); Bilirubin,Total 0.4 mg/dL (0.2-1.3); Blood Urea Nitrogen 19 mg/dL (9-20); Carbon Dioxide 24 mmol/L (22-30); Chloride 107 mmol/L (98-107); Cholesterol 146 mg/dL (0-200); Estimated Glomerular Filt Rate > 60; Glucose 114 mg/dL (65-110); HDL Direct 35 mg/dL; Potassium 4.2 mmol/L (3.4-5.0); Sodium 137 mmol/L (137-145); Triglycerides 188 mg/dL (<150)
[2023-06-29 21:04] LABS: LDL Cholesterol Direct 89 mg/dL
[2023-06-29 21:38] LABS: Hemoglobin A1C 5.9 % (<5.7)
[2023-06-29 21:45] LABS: MALB Creatinine Ratio 7.5 mg/g (0-30); Microalbumin Urine Random 7.3 mg/L (0-16.7)
== END 2023-06-29 09:05 | disposition home or self-care (01) ==
PROVIDERS: PCP Emergency Medicine; Visit Provider Nurse Practitioner
DX: D64.9 Anemia, unspecified (principal); E78.2 Mixed hyperlipidemia; G47.00 Insomnia, unspecified; E11.9 Type 2 diabetes mellitus without complications
CPT/HCPCS: 36415; 80053; 80061; 82043; 83036; 84443; 85027

== ENCOUNTER 2023-10-18 09:37 | Emergency (ER) | payer MEDICARE, SELFPAY ==
--- NOTE | ~2023-10-18 | XR_ITS ---
Clinical Indication: Cough, lung cancer PA and lateral views of the chest: Comparison: 11/01/2014 Findings: 4.5 cm right suprahilar mass present. Left lung clear. Right-sided Mediport in place. Cardi omediastinal silhouette is within normal limits. Bones and soft tissues are unremarkable. Impression: 4.5 cm right suprahilar mass, compatible with history of lung cancer. Right-sided Mediport. Reviewed, dictated and finalized at location M. Impression: 4.5 cm right suprahilar mass, compatible with history of lung cancer. Right-sided Mediport.
--- NOTE | 2023-10-18 09:45 | ED.URI ---
HPI - URI/Sore Throat General Chief Complaint: Upper Respiratory Infection Stated Complaint: Congestion/Cough Time Seen by Provider: 10/18/23 09:46 Source: patient Mode of arrival: ambulatory Limitations: no limitations History of Present Illness HPI Narrative: Nabil is a 67-year-old male patient presenting to the clinic today with complaints of cough and congestion x2 days. He reports does have some increased shortness of breath. History esophageal, lung, and adrenal cancer. States that he coughed up some blood this morning. Was coughing so hard yesterday he felt as though he injured his ribs. States the cough is better today. Was recently in a clinical trial for his cancer-states currently he is in a washout period (4 weeks)and plans to begin a no other clinical trial after the washout period is complete. MD elicited complaint: cough and nasal congestion Related Data Home Medications Medication Instructions Recorded Confirmed B-complex with vitamin C 1 cap PO DAILY 10/02/21 06/29/23 acyclovir 800 mg tablet 800 mg PO BID 10/21/22 06/29/23 calcium carbonate 600 mg-vitamin cap PO 10/21/22 06/29/23 D3 12.5 mcg (500 unit) capsule (Calcium 600 with Vitamin D3) loperamide 2 mg capsule 2 mg PO Q6H PRN 10/21/22 06/29/23 pregabalin 75 mg capsule 75 mg PO BID 10/21/22 06/29/23 prochlorperazine maleate 10 mg 10 mg PO Q8H PRN 10/21/22 06/29/23 tablet albuterol sulfate 90 mcg/actuation 1 puff inhalation PRN 06/29/23 06/29/23 aerosol inhaler cholecalciferol (vitamin D3) 1,250 1,250 mcg PO WEEKLY 06/29/23 06/29/23 mcg (50,000 unit) capsule esomeprazole magnesium 40 mg 80 mg PO DAILY 06/29/23 06/29/23 capsule,delayed release (Nexium) fenofibrate 160 mg tablet 160 mg PO QHS 06/29/23 06/29/23 fluticasone fur. 100 mcg-umeclid 1 inh inhalation DAILY 06/29/23 06/29/23 62.5 mcg-vilant 25 mcg inhalat.powder (Trelegy Ellipta) sulfamethoxazole 800 1 tablet PO .COMPLEX 06/29/23 06/29/23 mg-trimethoprim 160 mg tablet Allergies Allergy/AdvReac Type Severity Reaction Status Date / Time animal dander Allergy Intermediate Sneezing Verified 10/18/23 10:12 codeine Allergy Intermediate headache Verified 10/18/23 10:12 morphine Allergy Intermediate Headache Verified 10/18/23 10:12 iohexol Allergy Diarrhea Verified 10/18/23 10:12 [From contrast - CT, X-RAY] AMADEO Inhibitors AdvReac Mild Cough Verified 10/18/23 10:12 taxol AdvReac Severe Other Uncoded 10/18/23 10:12 Review of Systems Review of Systems: Pertinent positives per HPI. Patient denies any fever, chills, rash, headache, visual changes, dizziness, chest pain, palpitations, nausea, vomiting, diarrhea, constipation, abdominal pain, or any urinary issues. PMFSH Past Medical History Medical History Arthritis of left wrist STT arthritis Biceps muscle tear (~09/2015) BPH associated with nocturia Carpal tunnel syndrome (~04/2016) Diabetes Diabetes mellitus Dysphagia Esophageal cancer (02/2019) Poorly differentiated adenocarcinoma stage IV. Managed at [facility]. With most recent April 2021 CT scan at [facility] demonstrating interval development of mediastinal hilar lymphadenopathy suspicious for metastatic disease. 2.5 cm left adrenal nodule also suspicious for metastatic disease. Interval development of lesion in the right aspect of L3 vertebral body suspicious for metastatic disease and enhancement anterior aspect left lobe of the liver new from prior exam. The patient's disease had previously been stable October 2020. Essential (primary) hypertension Hepatic steatosis Hiatal hernia Hypogonadism in male Internal jugular vein thrombosis (~04/2019) On chronic anticoagulation Mixed hyperlipidemia Obstructive sleep apnea (adult) (pediatric) Obstructive sleep apnea on CPAP Tobacco use Quit 07-29-18 Surgical History Surgical History H/O hernia repair Inguinal hernia repair with mesh History of carpal
[2023-10-18 09:51] VITALS: BP 130/75; PULSE 95; RESP 16; TEMP 36.8; O2SAT 99
[2023-10-18 10:33] LABS: EDINFLUASCREEN Negative; EDINFLUBSCREEN Negative
== END 2023-10-18 11:07 | disposition home or self-care (01) ==
PROVIDERS: Emergency Provider Nurse Practitioner Family; PCP Emergency Medicine
DX: U07.1 COVID-19 (principal); Z87.891 Personal history of nicotine dependence; C15.9 Malignant neoplasm of esophagus, unspecified; C78.00 Secondary malignant neoplasm of unspecified lung; C79.70 Secondary malignant neoplasm of unspecified adrenal gland; E11.9 Type 2 diabetes mellitus without complications; I10 Essential (primary) hypertension; E78.2 Mixed hyperlipidemia; G47.33 Obstructive sleep apnea (adult) (pediatric)
CPT/HCPCS: 71046; 87426; 87804; 99213; G0463

== ENCOUNTER 2024-04-26 07:53 | Outpatient (CLI) | payer MEDICARE, SELFPAY ==
--- NOTE | 2024-05-25 10:22 | WPDSLEEPSTUD ---
Sleep Study Date of Study: 04/26/24 Ordering Provider: Chris Rondon MD Interpreting Physician: Niyah Dumas, Sleep Study Type: CPAP Titration Height: 1.75 m Weight: 86.183 kg Body Mass Index: 28.0 Neck Circumference (inches): 16 [place]: 12 Reason for Sleep Study Needs new sleep study to get new equipment. Current CPAP machine is >5 years old. Currently on CPAP 12 cm H2O. Compliance data shows residual AHI of 6.8 with large leak. Sleep History The patient is a 68-year-old male that had a sleep study ordered by his primary care physician to re-qualify for new CPAP equipment. The patient rarely awakens from sleep short of breath. He frequently awakens at night with heartburn, belching or cough. He occasionally snores and is occasionally loud enough that others complain. He frequently has trouble sleeping when he has a cold. He denies waking up gasping for air throughout the night. He rarely has breathing problems at night observed by himself or others. He rarely sweats excessively at night. He rarely has heart palpitations or irregular heartbeats during the night. He frequently falls asleep during the day but rarely while driving. He denies cataplexy. He denies having trouble at school or work due to sleepiness. He rarely feels unable to move while waking up or falling asleep. He rarely experiences vivid dreamlike scenes upon awakening or falling asleep. He rarely feels afraid of going to sleep. He rarely has nightmares. He rarely remembers his dreams. He frequently has thoughts racing through his mind. He rarely feels sad or depressed. He occasionally has anxiety. He frequently has muscular tension. He rarely notices parts of his body jerk. He rarely kicks during the night. He rarely has crawling and aching feelings in his legs. He denies having leg pain during the night. He denies his teeth during sleep denies awakening with morning jaw pain. He is occasionally bothered by pain during the day and occasionally awakened by pain during the night. He occasionally wakes up feeling stiff in the morning. He occasionally wakes with sore or achy muscles. He occasionally wakes up with pain in the neck, spine and other joints. He goes to bed at 9:00 p.m. on weekdays and at 10:00 p.m. on the weekends. It takes him 1 hour to fall asleep. He wakes up 3-4 times throughout the night for unknown reasons and takes 20 minutes to fall back asleep. He wakes up at 5:30 a.m. both weekdays and weekends. He typically gets 6 hours of sleep per night. He will stay in bed for 20-30 minutes after waking up in the morning. He currently lives with his . He denies consuming any caffeinated beverages within 2 hours of bedtime. He denies engaging in physical exercise before bedtime. He will watch television before falling asleep. He will take naps in afternoon or the evening and they are refreshing. He consumes 1 caffeinated beverage per day. He is a former cigarette smoker. He denies alcohol and recreational drug use. 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 Managed at [place]. With most recent April 2021 CT scan at [place] demonstrating interval development of mediastinal hilar lymphadenopathy suspicious for metastatic disease. 2.5 cm left adrenal nodule also suspicious for metastatic disease. Interval development of lesion in the right aspect of L3 vertebral body suspicious for metastatic disease and enhancement anterior aspect left lobe of the liver new from prior exam. The patient's disease had previously been stable October 2020. BPH associated with nocturia Essential (primary) hypertension Hypogonadism in male Mixed hyperlipidemia Obstructive sleep apnea (adult) (pediatric) Tobacco use Quit 07-29-18 Diabetes Dysphagia Carpal tunnel syndrome (~04/2016) Biceps muscle tear (~09/2015) Surgical History Surgical History History of laparoscopic appendectomy 05/12/21 History of esophagogastroduodenoscopy (EGD) History of colonoscopy History of carpal tunnel release History of hand surgery surgery for trigger finger right hand History of surgery on arm Port-A-Cath in place History of knee surgery (~04/2018) Right knee arthroscopy in 2019 for meniscal tear H/O hernia repair Inguinal hernia repair with mesh Family History Family History Sibling Family history of rheumatoid arthritis Heart disease Grandparent Diabetes mellitus Father Hypertension Cancer Social History Social History Social History: He lives in [place] with his of 39 years. 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 Primary care physician: Dr. Moise Lee Code status: Full code Surrogate decision maker: Smoking packs per day: 2 Smoking cigarettes per day: 40.0 Years smoked: 40 Smoking pack-years: 80.00 Smoking status: Former smoker Tobacco type: cigarettes Smoking end date: 08/17/17 Alcohol intake: former Drinks per week: 1 Alcohol use details: 1 EVERY 6 MONTHS SINCE STARTING CHEMO Substance use: former Substance use type: does not use Lack of Transportation: No Lack of Food: Never True Current Housing: I Have Housing Concerned About Future Housing: No Difficulty Paying Gas/Electric Bills: No Difficulty Paying for Meds: No Currently Unemployed: No Education: Associate Degree Difficulty w/ Childcare or Family Care: No Living arrangements: with family Occupation/Education: retired Gender identity (if verbalized by the patient): Male Spiritual care concerns: No Medications Home Medications ?Medication ?Instructions ?Recorded ?Confirmed ?Type B-complex with vitamin C 1 cap PO DAILY 10/02/21 01/26/24 History calcium 600 mg (as cap PO 10/21/22 01/26/24 History carbonate)-vitamin D3 12.5 mcg (500 unit) capsule (Calcium with Vit D3) albuterol sulfate 90 mcg/actuation 1 puff inhalation PRN 06/29/23 01/26/24 History aerosol inhaler esomeprazole magnesium 40 mg 80 mg PO DAILY 06/29/23 01/26/24 History capsule,delayed release (Nexium) fluticasone fur. 100 mcg-umeclid 1 inh inhalation DAILY 06/29/23 01/26/24 History 62.5 mcg-vilant 25 mcg inhalat.powder (Trelegy Ellipta) fenofibrate 160 mg tablet See Rx Instructions .Route 11/26/23 01/26/24 Rx .COMPLEX #90 tabs baclofen 20 mg tablet 20 mg PO DAILY #90 tabs 01/26/24 01/26/24 Rx enoxaparin 150 mg/mL subcutaneous 150 mg subcut DAILY 01/26/24 01/26/24 History syringe (Lovenox) esomeprazole magnesium 40 mg 40 mg PO BID #180 caps 01/26/24 01/26/24 Rx capsule,delayed release (Nexium) ferrous sulfate 220 mg (44 mg 220 mg PO DAILY 01/26/24 01/26/24 History iron)/5 mL oral elixir magnesium 200 mg tablet 200 mg PO DAILY 01/26/24 01/26/24 History tamsulosin 0.4 mg capsule See Rx Instructions .Route 03/20/24 Rx .COMPLEX #180 caps pregabalin 150 mg capsule (Lyrica) 150 mg PO TID #90 caps 03/28/24 Rx Sleep Procedure A full night CPAP Titration using the [employer] multi-channel system recorded the standard physiologic parameters including EEG, EOG, submentalis EMG, anterior tibialis EMG, EKG, body position, nasal and oral airflow using nasal pressure sensor and thermistor.? Respiratory parameters of chest and abdominal movements were recorded with Respiratory Inductance Plethysmography belts. Oxygen saturation was recorded by pulse oximetry. Video monitoring was also performed. Sleep stages, periodic limb movements, and EEG arousals were scored in 30 second epochs according to the criteria of the AASM Scoring Manual. The Apnea-Hypopnea Index was calculated using CMS guidelines for definition of hypopnea with 4% O2 desaturations while scoring respiratory events. Sleep Architecture The total recording time was 517.3 minutes.? The total sleep time was 330.5 minutes. Sleep latency was 21.0 minutes. REM latency was 176.5 minutes. Sleep efficiency was 63.9%. The patient had 29 awakenings for an awakening index of 5.3. Wake after Sleep Onset time was 165.5 minutes. The patient spent 32.5 minutes, 9.8% of total sleep time in Stage N1. The patient spent 240.0 minutes, 72.6% in Stage N2. The patient spent 4.5 minutes, 1.4% in Stage N3. The patient spent 53.5 minutes, 16.2% in Stage REM. Respiratory Analysis The patient had 17 hypopneas for an overall Apnea Hypopnea Index of 3.1 events per hour. The REM Apnea Hypopnea Index was 12.3. The NREM Apnea Hypopnea Index was 1.3. The patient had a Central Apnea Hypopnea Index of 0. There was no evidence of Milad-Avery Respirations. The patient was started on CPAP 5 cm H2O and titrated to CPAP 13 cm H2O due to hypopneas. The patient was able to fall asleep starting on CPAP 5 cm H2O. The patient was able to achieve REM sleep starting on CPAP 8 cm H2O. The patient was able to achieve a residual AHI less than 5 with both NREM and REM sleep in the supine position on the final pressure setting. On CPAP 13 cm H2O, the patient spent 85 minutes in NREM and 21 minutes in REM with 3 hypopneas, resulting in an AHI of 1.7. The patient had a sleep efficiency of 59.9% on this pressure setting. The patient did not use a sleep aid for this study. Arousals There were 107 total arousals for an arousal index of 19.4. There were 22 spontaneous arousals for an index of 4.0. ?There were 4 arousals due to respiratory events for an index of 0.7. There were 47 arousals due to periodic limb movements for an index of 8.5.? There were 37 arousals due to isolated limb movements for an index of 6.7. Periodic Limb Movements The patient had 78 isolated limb movements with an index of 14.2. The patient had 175 periodic limb movements with index of 31.8, which is elevated (normal < 15). Patient had a total of 253 limb movements with a total limb movement index of 45.9. Oximetry Data The patient had an average oxygen saturation of 95.0% in sleep with a minimum oxygen saturation of 88.0% and a maximum oxygen saturation of 98.0%. The patient had 18 oxygen desaturations that were 4% or greater resulting in an Oxygen Desaturation Index of 3.3.? The patient spent 0.3 minutes, 0.1% of total sleep time with an oxygen saturation below 88%. Snoring Profile Mild snoring was present in the beginning of the study. The majority of the snoring resolved once the patient was titrated to 13 cm H2O. Cardiac Profile The EKG showed normal sinus rhythm with occasional premature beats. The patient had an average pulse rate of 72.6 bpm with a minimum pulse rate of 61.0 bpm and a maximum pulse rate of 96.0 bpm. ? EEG Profile No signs of seizure activity seen. Assessment and Plan Assessment and Plan (1) JOAN (obstructive sleep apnea): Code(s): G47.33 - Obstructive sleep apnea (adult) (pediatric) Status: Acute Assessment and Plan: The patient was started on CPAP 5 cm H2O and titrated to CPAP 13 cm H2O due to hypopneas. The patient's sleep apnea resolved on the final pressure setting. I recommend that the patient be prescribed CPAP 13 cm H2O, size medium Resmed AirFit F20 FFM, CPAP filters/tubing and heated humidity. This should be used with all episodes of sleep.? Compliance should be reviewed within 31-90 days of starting therapy for usage greater than 4 hours per night greater than 70% of the nights. The patient should be asked about symptoms such as?excessive daytime sleepiness, quality of sleep, decreased nocturia, increased?mental functioning such as memory, mood, and concentration. While the patient did have an elevated number of periodic limb movements during the study, the frequency decreased significantly once the patient was titrated to the optimal pressure setting. I recommend asking the patient about leg movments at his CPAP Compliance visit. Data The data obtained during this sleep study is adequate for interpretation. Certification This sleep study has been reviewed by a board certified sleep medicine physician.
[2024-05-25 13:18] VITALS: BMI 28.0
== END 2024-04-27 07:03 | disposition home or self-care (01) ==
LOC: ANHCSM 07:54
PROVIDERS: PCP Family Medicine; Visit Provider Family Medicine
DX: G47.33 Obstructive sleep apnea (adult) (pediatric) (principal); Z99.89 Dependence on other enabling machines and devices
CPT/HCPCS: 95811

== ENCOUNTER 2024-05-01 08:12 | Outpatient (CLI) | payer MEDICARE, SELFPAY ==
--- OUTSIDE RECORDS SUMMARY | 2024-05-01 08:31 | XMS_ITS | Encounter Summary ---
Author Organization [facility] Address [address] [place] [address] Phone Care Team Providers Care Solar Installer Technician Name Role Phone Carlos Paz MD Unavailable [phone] David Rehman MD Unavailable [phone] Mae Recinos MD Unavailable [phone] Rob Fisher MD Primary Care Provider [phone] Areli Cordon MD Unavailable [phone] Kevin Flynn MD Unavailable [phone] Yakov Yousif MD PhD Unavailable [phone] Chris Rondon MD Primary Care Provider [phone] Encounter Details Date Type Department Care Team (Late st Contact Info) Description 08/07/2022 Telephone [facility] [address] [facility] Medical Office Building [address] [place] [address] Felecia Soto, LEACH RUNNER Social History Tobacco Use Types Packs/Day Years Used Date Smoking Tobacco: Former Cigarettes 0.1 35 0 07/29/1982 - 07/29/2017 Smokeless Tobacco: Never Alcohol Use Standard Drinks/Week Comments Yes 0 (1 standard drink = 0.6 oz pur e alcohol) 2/week AUDIT-C Answer Date Recorded Q1: How often do you have a drink containing alc ohol? Monthly or less 06/22/2022 Q2: How many drinks containi ng alcohol do you have on a typical day when you are drinking? 1 or 2 06/22/2022 Q3: How often do you have si x or more drinks on one occasion? Never 06/22/2022 Sex and Gender Information Value Date Recorded Sex Assigned at Not on file Legal Sex Male 3:57 PM SENIOR PRODUCT DESIGNER Gender Identity Male 03/31/2019 1:28 PM SENIOR PRODUCT DESIGNER Sexual Orientation Straight 03/31/2019 1: 28 PM SENIOR PRODUCT DESIGNER documented as of this encounter Plan of Treatment Not on file documented as of this encounter Goals Goal Patient Goal Type Associated Problems Recent Progress Patient-Stated? Author CCM Chronic Pain Care Plan Chronic Care Management On track(2022 9:13 AM SENIOR PRODUCT DESIGNER) Madeleine Nguyen RN Note: Problem: Chronic Pain Goals: 1. Minimize further functional decline 2. Maximize quality of life 3. Control pain Strategies: - Activity/exercise program recommendation - Conservative stepwise pain medicine strategy with multi-disciplinary approach - Recommend healthy lifestyle strategies and compensatory methods as needed documented as of this encounter Visit Diagnoses Not on filedocumented in this encounter Additional Health Concerns Infection Onset Date Last Indicated Resolved Time COVID: Suspected 01/25/2023 01/25/2023 01/25/2023 5:53 PM SENIOR PRODUCT DESIGNER COVID: Suspected 02/07/2024 02/07/2024 02/07/2024 8:28 PM SENIOR PRODUCT DESIGNER COVID: Suspected 02/27/2024 02/27/2024 02/27/2024 2:35 AM SENIOR PRODUCT DESIGNER RSV, droplet Comment:02/28/2024 eligible for review 03/04. Needs to be afebrile x24 hours off antipyretics and symptoms resolved/improving. Jaqui Mitchell RN 02/27/2024 02/27/2024 03/05/2024 3:[address] COVID: Suspected 03/28/2024 03/28/2024 03/28/2024 9:16 PM SENIOR PRODUCT DESIGNER Influenza, adult 03/28/2024 03/28/2024 04/04/2024 3:07 AM SENIOR PRODUCT DESIGNER RSV, droplet 03/28/2024 03/28/2024 04/04/2024 3:07 AM SENIOR PRODUCT DESIGNER C. difficile suspected 03/29/2024 03/29/202403/29 7:49 PM SENIOR PRODUCT DESIGNER documented as of this encounter Care Teams Solar Installer Technician Relationship Specialty Start Date End Date Rob Fisher MD [address] [facility] [address] [place] [address] PCP - General Family Medicine 11/19/21 12/07/23 Chris Rondon MD [address] [place] [address] [phone] PCP - General Family Medicine 12/08/23 Carlos Paz MD [address] [place] [address] [phone] Surgeon General Surgery 03/22/19 David Rehman MD [address] [address] Surgeon Gastroenterology 05/23/19 Mae Recinos MD [address] [phone] Radiation Oncologist Radiation Oncology 12/30/20 Areli Cordon MD [address] [place] [address] [phone] Consulting Physician Pulmonary Disease 01/23/22 Kevin Flynn MD [facility] [phone] Consulting Physician Medical Oncology 05/14/22 Yakov Yousif MD PhD [address] [address] Medical Oncologist/Meter Shop Supervisor Medical Oncology 02/23/23 documented as of this encounter
--- OUTSIDE RECORDS SUMMARY | 2024-05-01 08:31 | XMS_ITS | Encounter Summary ---
Author Organization [facility] Address [address] [place] [address] Phone Care Team Providers Care Airport Ramp Agent Name Role Phone Emile Gastelum MD, Faraz Unavailable +[phone] Carlos Paz MD Unavailable [phone] David Rehman MD Unavailable [phone] Mae Recinos MD Unavailable [phone] Rob Fisher MD Primary Care Provider Areli Cordon MD Unavailable Kevin Fylnn MD Unavailable [phone] Yakov Yousif MD PhD Unavailable [phone] Chris Rondon MD Primary Care Provider [phone] Encounter Details Date Type Department Care Team (Latest Contact Info) Description 12/10/2021 Orders Only [facility] Scanning, Provider Social History Tobacco Use Types Packs/Day Years Used Date Smoking Tobacco: Former Cigarettes 0.1 35 0 07/29/1982 - 07/29/2017 Smokeless Tobacco: Never Alcohol Use Standard Drinks/Week Comments Yes 0 (1 standard drink = 0.6 oz pur e alcohol) 2/week AUDIT-C Answer Date Recorded Q1: How often do you have a drink containing alc ohol? Monthly or less 05/05/2021 Q2: How many drinks containi ng alcohol do you have on a typical day when you are drinking? 1 or 2 05/05/2021 Q3: How often do you have si x or more drinks on one occasion? Never 05/05/2021 Sex and Gender Information Value Date Recorded Sex Assigned at Not on file Legal Sex Male 3:57 PM MYSQL DBA Gender Identity Male 03/31/2019 1:28 PM MYSQL DBA Sexual Orientation Straight 03/31/2019 1: 28 PM MYSQL DBA documented as of this encounter Plan of Treatment Not on file documented as of this encounter Procedures Procedure Name Priority Date/Time Associated Diagnosis Comments CARDIOLOGY DOCUMENT SCAN 12/10/2021 documented in this encounter Results * CARDIOLOGY DOCUMENT SCAN (12/10/2021) Anatomical Region Laterality Modality Other us Provider Scanning CV CARDIAC SERVICES PROCEDURES Final Result documented in this encounter Visit Diagnoses Not on filedocumented in this encounter Additional Health Concerns Infection Onset Date Last Indicated Resolved Time COVID: Suspected 01/25/2023 01/25/2023 01/25/2023 5:53 PM MYSQL DBA COVID: Suspected 02/07/2024 02/07/2024 02/07/2024 8:28 PM MYSQL DBA COVID: Suspected 02/27/2024 02/27/2024 02/27/2024 2:35 AM MYSQL DBA RSV, droplet Comment:02/28/2024 eligible for review 03/04. Needs to be afebrile x24 hours off antipyretics and symptoms resolved/improving. Jaqui Mitchell RN 02/27/2024 02/27/2024 03/05/2024 3:[address] COVID: Suspected 03/28/2024 03/28/2024 03/28/2024 9:16 PM MYSQL DBA Influenza, adult 03/28/2024 03/28/2024 04/04/2024 3:07 AM MYSQL DBA RSV, droplet 03/28/2024 03/28/2024 04/04/2024 3:07 AM MYSQL DBA C. difficile suspected 03/29/2024 03/29/202403/29 7:49 PM MYSQL DBA documented as of this encounter Care Teams Airport Ramp Agent Relationship Specialty Start Date End Date Rob Fisher MD [address] [facility] [address] [place], [place] [phone] PCP - General Family Medicine 11/19/21 12/07/23 Chris Rondon MD [address] [place] [address] [phone] PCP - General Family Medicine 12/08/23 Faraz Baptiste Jr., MD Medical Oncologist/Geodetic Engineer Medical Oncology 03/21/19 05/25/22 Carlos Paz MD [address] [place] [address] [phone] Surgeon General Surgery 03/22/19 David Rehman MD [address] [place] [address] [phone] Surgeon Gastroenterology 05/23/19 Mae Recinos MD [address] [facility] [address] [place] [address] Radiation Oncologist Radiation Oncology 12/30/20 Areli Cordon MD [facility] [address] Consulting Physician Pulmonary Disease 01/23/22 Kevin Flynn MD [facility] [phone] Consulting Physician Medical Oncology 05/14/22 Yakov Yousif MD PhD [address] [address] Medical Oncologist/Geodetic Engineer Medical Oncology 02/23/23 documented as of this encounter
--- OUTSIDE RECORDS SUMMARY | 2024-05-01 08:31 | XMS_ITS | Encounter Summary ---
Author Organization [facility] Address [address] [place] [address] Care Team Providers Care Supervisor Anodizing Name Role Phone Carlos Paz MD Unavailable [phone] David Rehman MD Unavailable [phone] Mae Recinos MD Unavailable [phone] Rob Fisher MD Primary Care Provider [phone] Areli Cordon MD Unavailable [phone] Kevin Flynn MD Unavailable [phone] Yakov Yousif MD PhD Unavailable [phone] Chris Rondon MD Primary Care Provider Encounter Details Date Type Department Care Team (Late st Contact Info) Description 11/25/2022 Telephone [facility] [address] [place] [address] Antonette Naik, RN Social History Tobacco Use Types Packs/Day Years Used Date Smoking Tobacco: Former Cigarettes 0.1 35 0 07/29/1982 - 07/29/2017 Smokeless Tobacco: Never Alcohol Use Standard Drinks/Week Comments Yes 0 (1 standard drink = 0.6 oz pur e alcohol) 2/week Social Connection and Isolat ion Panel [NHANES] Answer Date Recorded In a typical week, how many times do you talk on the phone with family, friends, or neighbors? More than three times a week 09/02/2022 How often do you get togethe r with friends or relatives? Twice a week 09/02/2022 How often do you attend chur ch or scientology services? 1 to 4 times per year 09/02/2022 Do you belong to any clubs o r organizations such as taoism groups, unions, fraternal or athletic groups, or school groups? No 09/02/2022 How often do you attend meet ings of the clubs or organizations you belong to? Never 09/02/2022 Are you , , di vorced, , never , or living with a partner? 09/02/2022 AUDIT-C Answer Date Recorded Q1: How often do you have a drink containing alc ohol? Monthly or less 06/22/2022 Q2: How many drinks containi ng alcohol do you have on a typical day when you are drinking? 1 or 2 06/22/2022 Q3: How often do you have si x or more drinks on one occasion? Never 06/22/2022 Overall Financial Resource Strain (CARDIA) Answe r Date Recorded How hard is it for you to pa y for the very basics like food, housing, medical care, and heating? Not hard at all 09/02/2022 PHQ-2 Answer Date Recorded PHQ-2 Total Score 0 09/02/2022 Hunger Vital Sign Answer Date Recorded Within the past 12 months, y ou worried that your food would run out before you got the money to buy more. Never true 09/03/19 23 Within the past 12 months, t he food you bought just didn't last and you didn't have money to get more. Never true 09/02/2022 PRAPARE - Transportation Answer Date Re corded In the past 12 months, has l ack of transportation kept you from medical appointments or from getting medications? No 08/15 In the past 12 months, has l ack of transportation kept you from meetings, work, or from getting things needed for daily living? No 09/02/2022 Housing Stability Vital Sign Answer Jeevan e Recorded In the last 12 months, was t here a time when you were not able to pay the mortgage or rent on time? No 09/02/2022 In the last 12 months, how many places have you lived? 1 09/02/2022 In the last 12 months, was t here a time when you did not have a steady place to sleep or slept in a [place] facility (including now)? No 09/02/2022 Sex and Gender Information Value Date Recorded Sex Assigned at Not on file Legal Sex Male 3:57 PM CONCRETE BUILDINGS ASSEMBLER Gender Identity Male 03/31/2019 1:28 PM CONCRETE BUILDINGS ASSEMBLER Sexual Orientation Straight 03/31/2019 1: 28 PM CONCRETE BUILDINGS ASSEMBLER documented as of this encounter Plan of Treatment Not on file documented as of this encounter Goals Goal Patient Goal Type Associated Problems Recent Progress Patient-Stated? Author CCM Chronic Pain Care Plan Chronic Care Management On track(2022 9:13 AM CONCRETE BUILDINGS ASSEMBLER) No Madeleine Johnson RN Note: Problem: Chronic Pain Goals: 1. [...] COVID: Suspected 01/25/2023 01/25/2023 01/25/2023 5:53 PM CONCRETE BUILDINGS ASSEMBLER COVID: Suspected 02/07/2024 02/07/2024 02/07/2024 8:28 PM CONCRETE BUILDINGS ASSEMBLER COVID: Suspected 02/27/2024 02/27/2024 02/27/2024 2:35 AM CONCRETE BUILDINGS ASSEMBLER RSV, droplet Comment:02/28/2024 eligible for review 03/04. Needs to be afebrile x24 hours off antipyretics and symptoms resolved/improving. Jaqui Mitchell RN 02/27/2024 02/27/2024 03/05/2024 3:[address] COVID: Suspected 03/28/2024 03/28/2024 03/28/2024 9:16 PM CONCRETE BUILDINGS ASSEMBLER Influenza, adult 03/28/2024 03/28/2024 04/04/2024 3:07 AM CONCRETE BUILDINGS ASSEMBLER RSV, droplet 03/28/2024 03/28/2024 04/04/2024 3:07 AM CONCRETE BUILDINGS ASSEMBLER C. difficile suspected 03/29/2024 03/29/202403/29 7:49 PM CONCRETE BUILDINGS ASSEMBLER documented as of this encounter Care Teams Supervisor Anodizing Relationship Specialty Start Date End Date Rob Fisher MD [address] [address] PCP - General Family Medicine 11/19/21 12/07/23 Chris Rondon MD [address] [place] [address] 200 [place] [address] PCP - General Family Medicine 12/08/23 Carlos Paz MD [address] [place] [address] [phone] Surgeon General Surgery 03/22/19 David Rehman MD [address] [address] Surgeon Gastroenterology 05/23/19 Mae Recinos MD [address] [address] Radiation Oncologist Radiation Oncology 12/30/20 Areli Cordon MD [address] [place] [address] [phone] Consulting Physician Pulmonary Disease 01/23/22 Kevin Flynn MD [address] [place] [address] Consulting Physician Medical Oncology 05/14/22 Yakov Yousif MD PhD [address] [place] [address] Medical Oncologist/Underground Mine Machinery Mechanic Medical Oncology 02/23/23 documented as of this encounter
--- OUTSIDE RECORDS SUMMARY | 2024-05-01 08:31 | XMS_ITS | Encounter Summary ---
Author Organization [facility] Address [address] [place] [address] Phone Care Team Providers Care Human Factors Scientist Name Role Phone Emile Gastelum MD, Faraz Unavailable [phone] Carlos Paz MD Unavailable [phone] David Rehman MD Unavailable [phone] Mae Recinos MD Unavailable [phone] Rob Fisher MD Primary Care Provider [phone] Areli Cordon MD Unavailable Kevin Flynn MD Unavailable [phone] Yakov Yousif MD PhD Unavailable [phone] Chris Rondon MD Primary Care Provider [phone] Encounter Details Date Type Department Care Team (Latest Contact Info) Description 01/26/2022 Orders Only [facility] Scanning, Provider [...] on file Legal Sex Male 3:57 PM SUPERVISOR DIE CASTING Gender Identity Male 03/31/2019 1:28 PM SUPERVISOR DIE CASTING Sexual Orientation Straight 03/31/2019 1: 28 PM SUPERVISOR DIE CASTING documented as of this encounter Plan of Treatment Not on file documented as of this encounter Procedures Procedure Name Priority Date/Time Associated Diagnosis Comments SCAN - LABS 01/26/2022 documented in this encounter Results * SCAN - LABS (01/26/2022) us Provider Scanning Final Result documented in this encounter Visit Diagnoses Not on filedocumented in this encounter Additional Health Concerns Infection Onset Date Last Indicated Resolved Time COVID: Suspected 01/25/2023 01/25/2023 01/25/2023 5:53 PM SUPERVISOR DIE CASTING COVID: Suspected 02/07/2024 02/07/2024 02/07/2024 8:28 PM SUPERVISOR DIE CASTING COVID: Suspected 02/27/2024 02/27/2024 02/27/2024 2:35 AM SUPERVISOR DIE CASTING RSV, droplet Comment:02/28/2024 eligible for review 03/04. Needs to be afebrile x24 hours off antipyretics and symptoms resolved/improving. Jaqui Mitchell RN 02/27/2024 02/27/2024 03/05/2024 3:[address] COVID: Suspected 03/28/2024 03/28/2024 03/28/2024 9:16 PM SUPERVISOR DIE CASTING Influenza, adult 03/28/2024 03/28/2024 04/04/2024 3:07 AM SUPERVISOR DIE CASTING RSV, droplet 03/28/2024 03/28/2024 04/04/2024 3:07 AM SUPERVISOR DIE CASTING C. difficile suspected 03/29/2024 03/29/202403/29 7:49 PM SUPERVISOR DIE CASTING documented as of this encounter Care Teams Human Factors Scientist Relationship Specialty Start Date End Date Rob Fisher MD [address] [facility] [address] [place] [address] PCP - General Family Medicine 11/19/21 12/07/23 Chris Rondon MD [address] [place] [address] [phone] PCP - General Family Medicine 12/08/23 Faraz Baptiste Jr., MD Medical Oncologist/Tongue And Quarter Stitcher Medical Oncology 03/21/19 05/25/22 Carlos Paz MD [address] [place] [address] [phone] Surgeon General Surgery 03/22/19 David Rehman MD [address] [place] [address] Surgeon Gastroenterology 05/23/19 Mae Recinos MD [address] [place] [address] Radiation Oncologist Radiation Oncology 12/30/20 Areli Cordon MD [address] [place] [address] [phone] Consulting Physician Pulmonary Disease 01/23/22 Kevin Flynn MD [address] [place] [address] [phone] Consulting Physician Medical Oncology 05/14/22 Yakov Yousif MD PhD NPI: [id number] [place] [address] Medical Oncologist/Tongue And Quarter Stitcher Medical Oncology 02/23/23 documented as of this encounter
--- OUTSIDE RECORDS SUMMARY | 2024-05-01 08:31 | XMS_ITS | Encounter Summary ---
Author Organization [facility] Address [address] [place] [address] Care Team Providers Care Gear Generator Set Up Operator Name Role Phone Carlos Paz MD Unavailable [phone] David Rehman MD Unavailable [phone] Mae Recinos MD Unavailable [phone] Rob Fisher MD Primary Care Provider [phone] Areli Cordon MD Unavailable [phone] Kevin Flynn MD Unavailable [phone] Yakov Yousif MD PhD Unavailable [phone] Chris Rondon MD Primary Care Provider + [phone] Encounter Details Date Type Department Care Team (Late st Contact Info) Description 10/27/2022 Telephone [facility] [address] [place] [id number] Antonette Naik, RN Social History Tobacco Use [...] often do you attend chur ch or holiness services? 1 to 4 times per year 09/02/2022 Do you belong to any clubs o r organizations such as congregation groups, unions, fraternal or athletic groups, or [...] place to sleep or slept in a detention (including now)? No 09/02/2022 Sex and Gender Information Value Date Recorded Sex Assigned at Not on file Legal Sex Male 3:57 PM HYDROLOGY TEACHER Gender Identity Male 03/31/2019 1:28 PM HYDROLOGY TEACHER Sexual Orientation Straight 03/31/2019 1: 28 PM HYDROLOGY TEACHER documented as of this encounter Plan of Treatment Not on file documented as of this encounter Goals Goal Patient Goal Type Associated Problems Recent Progress Patient-Stated? Author CCM Chronic Pain Care Plan Chronic Care Management On track(2022 9:13 AM HYDROLOGY TEACHER) No Madeleine Johnson RN Note: Problem: Chronic [...] COVID: Suspected 01/25/2023 01/25/2023 01/25/2023 5:53 PM HYDROLOGY TEACHER COVID: Suspected 02/07/2024 02/07/2024 02/07/2024 8:28 PM HYDROLOGY TEACHER COVID: Suspected 02/27/2024 02/27/2024 02/27/2024 2:35 AM HYDROLOGY TEACHER RSV, droplet Comment:02/28/2024 eligible for review 03/04. Needs to be afebrile x24 hours off antipyretics and symptoms resolved/improving. Jaqui Mitchell RN 02/27/2024 02/27/2024 03/05/2024 3:[address] COVID: Suspected 03/28/2024 03/28/2024 03/28/2024 9:16 PM HYDROLOGY TEACHER Influenza, adult 03/28/2024 03/28/2024 04/04/2024 3:07 AM HYDROLOGY TEACHER RSV, droplet 03/28/2024 03/28/2024 04/04/2024 3:07 AM HYDROLOGY TEACHER C. difficile suspected 03/29/2024 03/29/202403/29 7:49 PM HYDROLOGY TEACHER documented as of this encounter Care Teams Gear Generator Set Up Operator Relationship Specialty Start Date End Date Rob Fisher MD [address] [address] PCP - General Family Medicine 11/19/21 12/07/23 Chris Rondon MD [address] [place] [address] [address] [place] [address] PCP - General Family Medicine 12/08/23 Carlos Paz MD [address] [place] [address] [phone] Surgeon General Surgery 03/22/19 David Rehman MD [address] [address] Surgeon Gastroenterology 05/23/19 Mae Recinos MD [address] [address] Radiation Oncologist Radiation Oncology 12/30/20 Areli Cordon MD [address] [place] [address] [phone] Consulting Physician Pulmonary Disease 01/23/22 Kevin Flynn MD [address] [place] [address] Consulting Physician Medical Oncology 05/14/22 Yakov Yousif MD PhD [address] [place] [address] Medical Oncologist/Chain Carrier Medical Oncology 02/23/23 documented as of this encounter
--- OUTSIDE RECORDS SUMMARY | 2024-05-01 08:31 | XMS_ITS | Encounter Summary ---
Author Organization [facility] Healthcare Address [address] [place] [address] Care Team Providers Care Cyber Security Administrator Name Role Phone Lydia Lee MD Primary Care Provider [phone] Emile Gastelum MD, [facility] Unavailable + [phone] Carlos Paz MD Unavailable [phone] David Rehman MD Unavailable [phone] Mae Recinos MD Unavailable [phone] Rob Fisher MD Primary Care Provider [phone] Areli Cordon MD Unavailable [phone] Kevin Flynn MD Unavailable [phone] Yakov Yousif MD PhD Unavailable [phone] Chris Rondon MD Primary Care Provider + [phone] Encounter Details Date Type Department Care Team (Late st Contact Info) Description 04/05/2019 Telephone [facility] [id number] [address] Laura Diallo RN Social History Tobacco Use Types Packs/Day Years Used Date Smoking Tobacco: Former Cigarettes 0.1 35 0 07/29/1982 - 07/29/2017 Smokeless Tobacco: Never Alcohol Use Standard Drinks/Week Comments Yes 0 (1 standard drink = 0.6 oz pur e alcohol) 2/week Sex and Gender Information Value Date Recorded Sex Assigned at Not on file Legal Sex Male 3:57 PM GIS DATABASE ADMINISTRATOR Gender Identity Male 03/31/2019 1:28 PM GIS DATABASE ADMINISTRATOR Sexual Orientation Straight 03/31/2019 1: 28 PM GIS DATABASE ADMINISTRATOR documented as of this encounter Miscellaneous Notes * Telephone Encounter - Laura Diallo RN - 04/05/2019 1:16 PM GIS DATABASE ADMINISTRATOR DATABASE ADMINISTRATOR documented in this encounter Plan of Treatment Not on file documented as of this encounter Visit Diagnoses Not on filedocumented in this encounter Additional Health Concerns Infection Onset Date Last Indicated Resolved Time COVID: Suspected 11/11/2021 11/11/2021 11/11/2021 10:03 AM CDT COVID: Suspected 01/25/2023 01/25/2023 01/25/2023 5:53 PM GIS DATABASE ADMINISTRATOR COVID: Suspected 02/07/2024 02/07/2024 02/07/2024 8:28 PM GIS DATABASE ADMINISTRATOR COVID: Suspected 02/27/2024 02/27/2024 02/27/2024 2:35 AM GIS DATABASE ADMINISTRATOR RSV, droplet Comment:02/28/2024 eligible for review 03/04. Needs to be afebrile x24 hours off antipyretics and symptoms resolved/improving. Jaqui Mitchell RN 02/27/2024 02/27/2024 03/05/2024 3:07 AM GIS DATABASE ADMINISTRATOR COVID: Suspected 03/28/2024 03/28/2024 03/28/2024 9:16 PM GIS DATABASE ADMINISTRATOR Influenza, adult 03/28/2024 03/28/2024 04/04/2024 3:07 AM GIS DATABASE ADMINISTRATOR RSV, droplet 03/28/2024 03/28/2024 04/04/2024 3:07 AM GIS DATABASE ADMINISTRATOR C. difficile suspected 03/29/2024 03/29/202403/29 7:49 PM GIS DATABASE ADMINISTRATOR documented as of this encounter Care Teams Cyber Security Administrator Relationship Specialty Start Date End Date Lydia Lee MD [address] [place] [address] PCP - General Family Medicine 03/21/19 11/18/21 Rob Fisher MD [address] [place] [address] PCP - General Family Medicine 11/19/21 12/07/23 Chris Rondon MD [address] [place] [address] [facility] [place] [address] [place] [address] PCP - General Family Medicine 12/08/23 Faraz Baptiste Jr., MD [address] [place] [address] [place] [address] Medical Oncologist/Commissary Manager Medical Oncology 03/21/19 05/25/22 Carlos Paz MD [address] [place] [address] [phone] Surgeon General Surgery 03/22/19 David Rehman MD [address] [place] [address] Surgeon Gastroenterology 05/23/19 Mae Recinos MD [address] [place] [address] Radiation Oncologist Radiation Oncology 12/30/20 Areli Cordon MD [address] [address] [phone] Consulting Physician Pulmonary Disease 01/23/22 Kevin Flynn MD [address] [place] [address] [phone] Consulting Physician Medical Oncology 05/14/22 Yakov Yousif MD PhD [address] [place] [address] [place] [address] Medical Oncologist/Commissary Manager Medical Oncology 02/23/23 documented as of this encounter
--- OUTSIDE RECORDS SUMMARY | 2024-05-01 08:31 | XMS_ITS | Encounter Summary ---
Author Organization [facility] Address [address] [place] [address] Phone Care Team Providers Care Canvassing Manager Name Role Phone Carlos Paz MD Unavailable [phone] David Rehman MD Unavailable [phone] Mae Recinos MD Unavailable [phone] Rob Fisher MD Primary Care Provider [phone] Areli Cordon MD Unavailable [phone] Kevin Flynn MD Unavailable [phone] Reason for Referral * Procedure (Routine) - Closed Specialty Diagnoses / Procedures Referred By Mehrdad kent Referred To Contact Diagnoses Malignant neoplasm of lower third of esophagus (HCC) Procedures Pulmonary Function Test -[facility]; Spirometry with Bronchodilator, DLCO, Lung Volumes, Airway Resistance; Pleth with Airway Resistance; Spirometry Kevin Flynn MD [address] [employer] [place] [address] Phone: tel: fax: [address] [phone] Referral ID Status Reason Start Date Expiration Date Visits Re quested Visits Authorized [id number] Closed 08/06/2022 09/05/2023 1 1 Reason for Visit * Procedure (Routine) - Closed Specialty Diagnoses / Procedures Referred By Contamee t Referred To Contact Diagnoses Malignant neoplasm of lower third of esophagus (HCC) Procedures Pulmonary Function Test -[facility]; Spirometry with Bronchodilator, DLCO, Lung Volumes, Airway Resistance; Pleth with Airway Resistance; Spirometry Kevin Flynn MD [address] [employer] [place] [address] Phone: tel: fax: [address] [phone] Referral ID Status Reason Start Date Expiration Date Visits Re quested Visits Authorized [id number] Closed 08/06/2022 09/05/2023 1 1 Encounter Details Date Type Department Care Team (Latest Contact Info) Description 08/21/2022 8:56 AM CDT Hospital Encounter [facility] PFT Lab [address] [facility] Medical Office [address] [place] [address] Malignant neoplasm of lower third of esophagus (HCC) Social History Tobacco Use Types Packs/Day Years Used Date Smoking Tobacco: Former Cigarettes 0.1 35 0 07/29/1982 - 07/29/2017 Smokeless Tobacco: Never Alcohol Use Standard Drinks/Week Comments Yes 0 (1 standard drink = 0.6 oz pur e alcohol) 2/week [employer] Utilities Answer Date Recorded In the past 12 months has [employer] gas, oil, or water [employer] threatened to shut off services in your home? No 03/29/2024 Social Connection and Isolat ion Panel [NHANES] Answer Date Recorded In a typical week, how many times do you talk on the phone with family, friends, or neighbors? More than three times a week 03/29/2024 How often do you get togethe r with friends or relatives? Twice a week 03/29/2024 How often do you attend [facility] or [facility] services? 1 to 4 times per year 03/29/2024 Do you belong to any clubs o r organizations such as buddhist groups, unions, fraternal or athletic groups, or school groups? No 03/29/2024 How often do you attend meet ings of the clubs or organizations you belong to? Never 03/29/2024 Are you , , di vorced, , never , or living with a partner? 03/29/2024 AUDIT-C Answer Date Recorded Q1: How often do you have a drink containing alcohol? Never 04/27/2023 Q2: How many drinks containi ng alcohol do you have on a typical day when you are drinking? Patient does not drink Q3: How often do you have si x or more drinks on one occasion? Never 04/27/2023 Overall Financial Resource Strain (CARDIA) Answe r Date Recorded How hard is it for you to pa y for the very basics like food, housing, medical care, and heating? Not hard at all 03/29/2024 PHQ-2 Answer Date Recorded PHQ-2 Total Score 0 09/02/2022 Hunger Vital Sign Answer Date Recorded Within the past 12 months, y ou worried that your food would run out before you got the money to buy more. Never true 03/29/19 25 Within the past 12 months, t he food you bought just didn't last and you didn't have money to get more. Never true 03/29/2024 PRAPARE - Transportation Answer Date Re corded In the past 12 months, has l ack of transportation kept you from medical appointments or from getting medications? No 03/18 In the past 12 months, has l ack of transportation kept you from meetings, work, or from getting things needed for daily living? No 03/29/2024 Housing Stability Vital Sign Answer Jeevan e [...] health care facility (including now)? No 09/02/2022 Housing Stability Vital Sign Answer Jeevan e Recorded In the last 12 months, was t here a time when you were not able to pay the mortgage or rent on time? No 03/29/2024 In the past 12 months, how m any times have you moved where you were living? 0 03/29/2024 At any time in the past 12 m [facility], were you homeless or living in a [place] health care facility (including now)? No 03/29/2024 Personal Safety Answer Date Recorded Have you ever been in or are you currently in a harmful physical or emotional relationship or is someone making you feel afraid or unsafe? Denies 03/29/2024 Sex and Gender Information Value Date Recorded Sex Assigned at Not on file Legal Sex Male 3:57 PM IMMIGRATION SPECIALIST Gender Identity Male 03/31/2019 1:28 PM IMMIGRATION SPECIALIST Sexual Orientation Straight 03/31/2019 1: 28 PM IMMIGRATION SPECIALIST documented as of this encounter Functional Status * Audit-C Score Answer Date of Assessment Author 0 04/27/2023 9:40 AM Haider Higgins RN * Question Answer Date of Assessment Author Q1: How often do you have a drink containing alcohol? Never 04/27/2023 9:40 AM Haider Higgins RN Q2: How many drinks containing alcohol do you have on a typical day when you are drinking? Patient does not drink 04/27/2023 9:40 AM Haider Higgins RN Q3: How often do you have six or more drinks on one occasion? Never 04/27/2023 9:40 AM Haider Higgins RN documented as of this encounter Plan of Treatment Not on file documented as of this encounter Goals Goal Patient Goal Type Associated Problems Recent Progress Patient-Stated? Author [facility] Chronic Pain Care Plan Chronic Care Management On track(2022 9:13 AM IMMIGRATION SPECIALIST) No Madeleine Johnson RN Note: Problem: Chronic Pain Goals: 1. Minimize further functional decline 2. Maximize quality of life 3. Control pain Strategies: - Activity/exercise program recommendation - Conservative stepwise pain medicine strategy with multi-disciplinary approach - Recommend healthy lifestyle strategies and compensatory methods as needed documented as of this encounter Procedures Procedure Name Priority Date/Time Associated Diagnosis Comments PULMONARY FUNCTION TEST (PFT) Routine 08/21/2022 9:24 AM CDT Malignant neoplasm of lower third of esophagus (HCC) documented in this encounter Results * Pulmonary Function Test - (08/21/2022 9:24 AM CDT) FVC PRE 3.88 L [facility] FVC %PRE PRED 93 % [facility] FEV1 PRE 2.93 L [facility] FEV1 %PRE PRED 91 % [facility] FEV1/FVC PRE 75.6 % [facility] FRC PL PRE 4.18 L [facility] FRC PL %PRE PRED 121 % [facility] RV PRE 3.08 L [facility] RV %PRE PRED 137 % [facility] TLC PRE 7.02 L [facility] TLC %PRE PRED 106 % [facility] DLCO PRE 18.1 ml/min/mmH g [facility] DLCO %PRE PRED 71 % [facility] Anatomical Region Laterality Modality PFT 08/21/2022 8:58 AM CDT Narrative 08/24/2022 9:21 PM CDT SEE PDF Includes Spirometry w/bronchodilator, Body Plethmysmography for the measurement of Lung Volumes and Airway resistance, Diffusing Lung Capacity (DLCO) and Preoperative Pulmonary Exam PFT performed at:->[facility] Procedure:->Spirometry with Bronchodilator Procedure:->DLCO Procedure:->Lung Volumes Procedure:->Airway Resistance Lung Volumes via:->Pleth with Airway Resistance DLCO:->Spirometry us Kevin Flynn MD PFT ORDERABLES Final Res ult documented in this encounter Visit Diagnoses Diagnosis Malignant neoplasm of lower third of esophagus (HCC) Malignant neoplasm of lower third of esophagus documented in this encounter Additional Health Concerns Infection Onset Date Last Indicated Resolved Time COVID: Suspected 01/25/2023 01/25/2023 01/25/2023 5:53 PM IMMIGRATION SPECIALIST COVID: Suspected 02/07/2024 02/07/2024 02/07/2024 8:28 PM IMMIGRATION SPECIALIST COVID: Suspected 02/27/2024 02/27/2024 02/27/2024 2:35 AM IMMIGRATION SPECIALIST RSV, droplet Comment:02/28/2024 eligible for review 03/04. Needs to be afebrile x24 hours off antipyretics and symptoms resolved/improving. Jaqui Mitchell RN 02/27/2024 02/27/2024 03/05/2024 3:[address] COVID: Suspected 03/28/2024 03/28/2024 03/28/2024 9:16 PM IMMIGRATION SPECIALIST Influenza, adult 03/28/2024 03/28/2024 04/04/2024 3:07 AM IMMIGRATION SPECIALIST RSV, droplet 03/28/2024 03/28/2024 04/04/2024 3:07 AM IMMIGRATION SPECIALIST C. difficile suspected 03/29/2024 03/29/202403/29 7:49 PM IMMIGRATION SPECIALIST documented as of this encounter Care Teams Canvassing Manager Relationship Specialty Start Date End Date Rob Fisher MD [address] [address] PCP - General Family Medicine 11/19/21 12/07/23 Carlos Paz MD [address] [place] [address] [phone] Surgeon General Surgery 03/22/19 David Rehman MD [address] [place] [address] Surgeon Gastroenterology 05/23/19 Mae Recinos MD [address] [place] [address] Radiation Oncologist Radiation Oncology 12/30/20 Areli Cordon MD [address] [place] [address] [phone] Consulting Physician Pulmonary Disease 01/23/22 Kevin Flynn MD [address] [place] [phone] Consulting Physician Medical Oncology 05/14/22 documented as of this encounter
--- OUTSIDE RECORDS SUMMARY | 2024-05-01 08:31 | XMS_ITS | Encounter Summary ---
Author Organization [facility] Address [address] [place] [address] Phone Care Team Providers Care Net Development Manager Name Role Phone Emile Gastelum MD, Faraz Unavailable + [phone] Carlos Paz MD Unavailable [phone] David Rehman MD Unavailable [phone] Mae Recinos MD Unavailable [phone] Rob Fisher MD Primary Care Provider [phone] Areli Cordon MD Unavailable Kevin Flynn MD Unavailable [phone] Yakov Yousif MD PhD Unavailable [phone] Chris Rondon MD Primary Care Provider [phone] Encounter Details Date Type Department Care Team (Late st Contact Info) Description 02/17/2022 Telephone [facility] Oncology [facility] 7th [place] [address] [place] [address] Elver Martinez Social History Tobacco Use Types Packs/Day Years [...] on file Legal Sex Male 3:57 PM CREW TEAM MEMBER Gender Identity Male 03/31/2019 1:28 PM CREW TEAM MEMBER Sexual Orientation Straight 03/31/2019 1: 28 PM CREW TEAM MEMBER documented as of this encounter Plan of Treatment Not on file documented as of this encounter Visit Diagnoses Not on filedocumented in this encounter Additional Health Concerns Infection Onset Date Last Indicated Resolved Time COVID: Suspected 01/25/2023 01/25/2023 01/25/2023 5:53 PM CREW TEAM MEMBER COVID: Suspected 02/07/2024 02/07/2024 02/07/2024 8:28 PM CREW TEAM MEMBER COVID: Suspected 02/27/2024 02/27/2024 02/27/2024 2:35 AM CREW TEAM MEMBER RSV, droplet Comment:02/28/2024 eligible for review 03/04. Needs to be afebrile x24 hours off antipyretics and symptoms resolved/improving. Jaqui Mitchell RN 02/27/2024 02/27/2024 03/05/2024 3:[address] COVID: Suspected 03/28/2024 03/28/2024 03/28/2024 9:16 PM CREW TEAM MEMBER Influenza, adult 03/28/2024 03/28/2024 04/04/2024 3:07 AM CREW TEAM MEMBER RSV, droplet 03/28/2024 03/28/2024 04/04/2024 3:07 AM CREW TEAM MEMBER C. difficile suspected 03/29/2024 03/29/202403/29 7:49 PM CREW TEAM MEMBER documented as of this encounter Care Teams Net Development Manager Relationship Specialty Start Date End Date Rob Fisher MD [address] [place] [phone] PCP - General Family Medicine 11/19/21 12/07/23 Chris Rondon MD [address] [place] [address] [phone] PCP - General Family Medicine 12/08/23 Faraz Baptiste Jr., MD Medical Oncologist/Metal Work Duct Installer Medical Oncology 03/21/19 05/25/22 Carlos Paz MD [address] [place] [address] [phone] Surgeon General Surgery 03/22/19 David Rehman MD [address] [address] Surgeon Gastroenterology 05/23/19 Mae Recinos MD [address] [phone] Radiation Oncologist Radiation Oncology 12/30/20 Areli Cordon MD [address] [place] [address] [phone] Consulting Physician Pulmonary Disease 01/23/22 Kevin Flynn MD [address] [place] [phone] Consulting Physician Medical Oncology 05/14/22 Yakov Yousif MD PhD [address] [place] [address] [phone] Medical Oncologist/Metal Work Duct Installer Medical Oncology 02/23/23 documented as of this encounter
--- OUTSIDE RECORDS SUMMARY | 2024-05-01 08:32 | XMS_ITS | Referral Summary ---
Author Organization [facility] Address [address] [place] [address] Care Team Providers Care R Programmer Name Role Phone Carlos Paz MD Unavailable [phone] David Rehman MD Unavailable [phone] Mae Recinos MD Unavailable [phone] Areli Cordon MD Unavailable Kevin Flynn MD Unavailable [phone] Yakov Yousif MD PhD Unavailable [phone] Chris Rondon MD Primary Care Provider [phone] Encounters Date Type Department Care Team Description 04/10/2024 Orders Only [facility] Pulmonary [address] [place] [address] Areli Cordon MD Chronic obstructive pulmonary disease, unspecified COPD type (HCC) (Primary Dx) 04/10/2024 12:30 PM QUALITY TECHNICIAN [employer] - 04/10/2024 11:59 PM QUALITY TECHNICIAN [employer] Hospital Encounter [facility] Respiratory Therapy [address] [place] [address] Simple chronic bronchitis (HCC) Discharge Disposition: Discharge to home or self care 04/10/2024 12:00 PM QUALITY TECHNICIAN [employer] Office Visit [facility] Pulmonary [address] [place] [address] Areli Cordon MD Simple chronic bronchitis (HCC) (Primary Dx); Pneumonitis; Gastroesophageal reflux disease without esophagitis; Chronic diastolic congestive heart failure (HCC); Chronic respiratory failure with hypoxia (HCC) 04/03/2024 1:45 PM QUALITY TECHNICIAN [employer] Infusion [facility] - Infusion [address] [facility] [address] [place] [address] Malignant neoplasm metastatic to bone (HCC) (Primary Dx); Malignant neoplasm of lower third of esophagus (HCC) 04/03/2024 11:45 AM QUALITY TECHNICIAN [employer] Clinical Support [facility] - Lab Collection [address] [facility] [address] [place] [address] Malignant neoplasm of lower third of esophagus (HCC); Malignant neoplasm metastatic to bone (HCC) 04/03/2024 12:45 PM QUALITY TECHNICIAN [employer] Office Visit [facility] Oncology [address] [place] [address] 5 [place] [id number] Yakov Yousif MD PhD Malignant neoplasm of lower third of esophagus (HCC); Malignant neoplasm metastatic to bone (HCC) 03/28/2024 11:10 PM QUALITY TECHNICIAN [employer] - 03/31/2024 12:40 PM QUALITY TECHNICIAN [employer] Hospital Encounter [facility] [address] [place] [address] Yakov Yousif MD PhD Acute cough (Primary Dx) Discharge Disposition: Discharge to home or self care 03/28/2024 8:59 PM QUALITY TECHNICIAN [employer] - 03/28/2024 11:59 PM QUALITY TECHNICIAN [employer] Hospital Encounter [facility] [address] [place] [address] Discharge Disposition: Discharge to home or self care 03/28/2024 Telephone [facility] Oncology [address] [place] [address] 5 [place] [address] Mariela San RN 03/27/2024 Telephone [facility] Radiation Oncology [address] [place] [address] [place] [address] Matilde Flor RN Report Symptoms 03/21/2024 Completion of Therapy [facility] Radiation Oncology [address] [facility] [place] [address] Walker Souza MD 03/21/2024 OTV [facility] Radiation Oncology [address] [place] [address] Walker Souza MD 03/21/2024 Orders Only RAD ONC TREATMENTS Miscellaneous, Not In File 03/21/2024 10:59 AM QUALITY TECHNICIAN [employer] - 03/21/2024 11:59 PM QUALITY TECHNICIAN [employer] Hospital Encounter [facility] Radiation Oncology [address] [place] [address] Walker Souza MD Discharge Disposition: Discharge to home or self care 03/20/2024 Orders Only RAD ONC TREATMENTS Miscellaneous, Not In File 03/20/2024 10:18 AM QUALITY TECHNICIAN [employer] - 03/20/2024 11:59 PM QUALITY TECHNICIAN [employer] Hospital Encounter [facility] Radiation Oncology [address] [place] [address] Walker Souza MD Discharge Disposition: Discharge to home or self care 03/17/2024 Orders Only RAD ONC TREATMENTS Miscellaneous, Not In File 03/17/2024 10:58 AM QUALITY TECHNICIAN [employer] - 03/17/2024 11:59 PM QUALITY TECHNICIAN [employer] Hospital Encounter [facility] Radiation Oncology [address] [place] [address] Walker Souza MD Discharge Disposition: Discharge to home or self care 03/16/2024 Orders Only RAD ONC TREATMENTS Miscellaneous, Not In File 03/16/2024 10:37 AM QUALITY TECHNICIAN [employer] - 03/16/2024 11:59 PM QUALITY TECHNICIAN [employer] Hospital Encounter [facility] Radiation Oncology [address] [place] [address] Walker Souza MD Discharge Disposition: Discharge to home or self care 03/15/2024 Orders Only RAD ONC TREATMENTS Miscellaneous, Not In File 03/15/2024 1:29 PM QUALITY TECHNICIAN [employer] - 03/15/2024 11:59 PM QUALITY TECHNICIAN [employer] Hospital Encounter [facility] Radiation Oncology [address] [place] [address] Walker Souza MD Discharge Disposition: Discharge to home or self care 03/10/2024 7:45 PM QUALITY TECHNICIAN [employer] - 03/10/2024 11:59 PM QUALITY TECHNICIAN [employer] Hospital Encounter [facility] Radiation Oncology [address] [place] [address] Walker Souza MD Discharge Disposition: Discharge to home or self care 03/07/2024 9:30 AM QUALITY TECHNICIAN [employer] Clinical Support [facility] Radiation Oncology [address] [place] [address] 03/07/2024 10:00 AM QUALITY TECHNICIAN [employer] - 03/07/2024 11:59 PM QUALITY TECHNICIAN [employer] Hospital Encounter [facility] Radiation Oncology [address] [place] [address] Walker Souza MD Discharge Disposition: Discharge to home or self care 03/06/2024 11:45 AM QUALITY TECHNICIAN [employer] Clinical Support [facility] - Lab Collection [address] [place] [address] Malignant neoplasm of lower third of esophagus (HCC); Malignant neoplasm metastatic to bone (HCC) 03/06/2024 1:30 PM QUALITY TECHNICIAN [employer] Infusion [facility] - Infusion [address] [place] [address] Floor [address] [place] [address] Malignant neoplasm metastatic to bone (HCC) (Primary Dx); Malignant neoplasm of lower third of esophagus (HCC) 03/06/2024 12:45 PM QUALITY TECHNICIAN [employer] Office Visit [facility] Oncology [address] [place] [address] Yakov Yousif MD PhD Malignant neoplasm of lower third of esophagus (HCC); Malignant neoplasm metastatic to bone (HCC) 03/02/2024 Telephone [facility] Oncology [address] [place] [address] [place] [address] Mariela San RN 03/02/2024 Telephone [facility] Bone Marrow Transplant [address] [facility] [address] [place] [phone] Kevin Flynn MD 03/02/2024 Telephone [facility] Radiation Oncology [address] [place] [address] Matilde Flor RN 03/01/2024 Orders Only [facility] Scheduling [address] [place] [address] Kindra Monterroso NP Pneumonia due to infectious organism, unspecified laterality, unspecified part of lung (Primary Dx) 02/26/2024 10:38 PM QUALITY TECHNICIAN [employer] - 03/01/2024 6:23 PM QUALITY TECHNICIAN [employer] Hospital Encounter [facility] [address] [place] [address] Johnny Garcia MD Grierson, Patrick, MD PhD Carloz Ordoñez MD Fever, unspecified fever cause (Primary Dx); Shortness of breath; Acute cough; RSV bronchitis Discharge Disposition: Discharge to home or self care 02/29/2024 5:25 AM QUALITY TECHNICIAN [employer] - 02/29/2024 11:59 PM QUALITY TECHNICIAN [employer] Hospital Encounter [facility] Radiation Oncology [address] [place] [address] Discharge Disposition: Discharge to home or self care 02/26/2024 Telephone [facility] Oncology [facility] 6 [place] [phone] Leah Moeller 02/15/2024 Telephone [facility] Radiation Oncology at [facility] [address] [place] [address] Walker Souza MD 02/14/2024 Orders Only [facility] Oncology [facility] 5 [place] [address] Yakov Yousif MD PhD Malignant neoplasm of lower third of esophagus (HCC) (Primary Dx); Malignant neoplasm metastatic to bone (HCC); Secondary malignant neoplasm of liver (HCC) 02/07/2024 5:18 PM QUALITY TECHNICIAN [employer] - 02/07/2024 11:59 PM QUALITY TECHNICIAN [employer] Hospital Encounter [facility] [address] [place] [address] Malignant neoplasm of lower third of esophagus (HCC); Malignant neoplasm metastatic to bone (HCC) Discharge Disposition: Discharge to home or self care 02/07/2024 Orders Only [facility] Oncology [address] [place] [address] Floor [address] [place] [address] Yakov Yousif MD PhD 02/07/2024 Orders Only [facility] Oncology [address] [place] [address] 5 [place] [address] Yakov Yousif MD PhD 02/07/2024 11:08 AM QUALITY TECHNICIAN [employer] - 02/07/2024 11:59 PM QUALITY TECHNICIAN [employer] Hospital Encounter [facility] - [place] [address] [facility] [address] [place] [address] Malignant neoplasm of lower third of esophagus (HCC); Malignant neoplasm metastatic to bone (HCC); Secondary malignant neoplasm of liver (HCC) Discharge Disposition: Discharge to home or self care 02/07/2024 3:30 PM QUALITY TECHNICIAN [employer] Infusion [facility] - Infusion [address] [facility] [address] [place] [address] Malignant neoplasm metastatic to bone (HCC) (Primary Dx); Malignant neoplasm of lower third of esophagus (HCC) 02/07/2024 1:30 PM QUALITY TECHNICIAN [employer] Clinical Support [facility] - Lab Collection [facility] [address] [place] [address] Malignant neoplasm of lower third of esophagus (HCC) (Primary Dx); Malignant neoplasm metastatic to bone (HCC) 02/07/2024 2:30 PM QUALITY TECHNICIAN [employer] Office Visit [facility] Oncology [address] [place] [address] Floor [address] [place] [address] Bettie Porter PA Malignant neoplasm of lower third of esophagus (HCC); Malignant neoplasm metastatic to bone (HCC) from Last 3 Months Allergies Active Allergy Reactions Criticality Noted Date Comments Juan Carlos Inhibitors Shortness of breath,Wheezing,Cough High 03/21/2019 Barium Iodide Diarrhea High 05/25/2023 Only has reactions when given Barium (severe diarrhea) No issues with IV contrast. Barium Sulfate Diarrhea Low 05/24/2023 Patient gets diarrhea with Barium ,ok with iodine contrast Cat Dander Itching Low 01/15/2022 Codeine Headache,Other (See comments) Low 03/21/2019 Severe headache Morphine Headache,Other (See comments) Low 03/21/2019 Severe headache Paclitaxel Shortness of breath,Nausea And Vomiting,Chest tightness,Joint pain High 06/19/2021 Did better with pretreatment. Medications fenofibrate (TRIGLIDE) 160 mg tablet Take 1 tablet (160 mg total) by mouth nightly 01/12/20 19 Active esomeprazole magnesium (NEXIUM ORAL) Take 40 mg by mouth daily Active tamsulosin (FLOMAX) 0.4 mg extended release capsule Take 2 capsules (0.8 mg total) by mouth daily after dinner 03/10/19 22 Active vitamin B complex capsule Take 1 capsule by mouth daily Active calcium carbonate-vitam in D3 (CALTRATE 600 + D) 1500 mg (600 mg elemental) -400 units per tablet Take 1 tablet by mouth daily Active ondansetron (ZOFRAN) 8 mg tabletIndicatio ns:Malignant neoplasm metastatic to bone (HCC),Esophagea l carcinoma (HCC),Malignant neoplasm of lower third of esophagus (HCC) Take 1 tablet (8 mg total) by mouth every 8 (eight) hours as needed for nausea Use if prochlorperazine does not stop nausea. 24 tablet 3 03/01/19 24 Active Additional Information Patient not taking.Reported on 04/10/2024 prochlorperazin e (Compazine) 10 mg tabletIndicatio ns:Malignant neoplasm metastatic to bone (HCC),Esophagea l carcinoma (HCC),Malignant neoplasm of lower third of esophagus (HCC) Take 1 tablet (10 mg total) by mouth every 6 (six) hours as needed for nausea or vomiting Use first for nausea. 120 tablet 3 03/01/19 24 Active Additional Information Patient not taking.Reported on 04/10/2024 tadalafiL (CIALIS) 5 mg tablet Take 1 tablet (5 mg total) by mouth daily 03/18/19 24 Active diphenoxylate-a tropine (LOMOTIL) 2.5-0.025 mg per tablet Take 1 tablet by mouth 2 (two) times a day as needed 01/05/20 Active cholecalciferol (VITAMIN D-3) 2000 unit tablet Take 1 tablet (2,000 Units total) by mouth daily 30 tablet 07/08/19 Active Additional Information Patient not taking.Reported on 04/10/2024 pregabalin (LYRICA) 75 mg capsule Take 1 capsule by mouth twice daily 60 capsule 5 09/08/19 Active enoxaparin (LOVENOX) 150 mg/mL injectionIndica tions:Malignant neoplasm of lower third of esophagus (HCC),Acute pulmonary embolism, unspecified pulmonary embolism type, unspecified whether acute cor pulmonale present (HCC) Inject 1 mL (150 mg total) under the skin daily 30 mL 6 12/14/19 Active alteplase (CATHFLO ACTIVASE) 2 mg injectionIndica tions:Malignant neoplasm of lower third of esophagus (HCC) Infuse 2 mL (2 mg total) into a venous catheter as needed (No blood return to port) 1 each 11 02/07/20 Active Additional Information Patient not taking.Reported on 04/10/2024 magnesium oxide 400 mg magnesium capsule Take by mouth Active albuterol HFA (PROVENTIL HFA,VENTOLIN HFA,PROAIR HFA) 90 mcg/actuation inhaler Inhale 2 puffs every 4 (four) hours as needed for wheezing or shortness of breath 1 each 1 03/31/19 Active benzonatate (TESSALON) 100 mg capsuleIndicati ons:Cough Take 1 capsule (100 mg total) by mouth 3 (three) times a day as needed for cough 20 capsule 1 03/31/19 Active Additional Information Patient not taking.Reported on 04/10/2024 loperamide (IMODIUM) 2 mg capsuleIndicati ons:diarrhea Take 1 capsule (2 mg total) by mouth every hour as needed for diarrhea (after each liquid stool (ensure that at least one C. diff assay is negative prior to initiating)) 30 capsule 1 03/31/19 Active Additional Information Patient not taking.Reported on 04/10/2024 azithromycin (ZITHROMAX) 250 mg tablet TAKE 2 TABLETS BY MOUTH ON DAY 1, AND THEN TAKE 1 TABLET BY MOUTH ONCE A DAY ON DAY 2 THROUGH DAY 5 03/28/19 25 Active baclofen (LIORESAL) 20 mg tablet Take 1 tablet (20 mg total) by mouth 3 (three) times a day Active fluticasone propion-salmete roL (ADVAIR DISKUS) 100-50 mcg/dose diskus inhaler Inhale 1 puff 2 (two) times a day Rinse mouth with water after use. Do not swallow. Active ipratropium-alb uteroL (DUO-NEB) 0.5-2.5 mg/3 mL nebulizer solutionIndicat ions:Chronic obstructive pulmonary disease, unspecified COPD type (HCC) Take 3 mL by nebulization 4 (four) times a day as needed for wheezing or shortness of breath 360 mL 5 04/10/19 25 026 Active oseltamivir (TAMIFLU) 75 mg capsuleIndicati ons:Influenza Take 1 capsule (75 mg total) by mouth 2 (two) times a day for 5 doses 5 capsule 03/31/19 25 025 predniSONE (DELTASONE) 20 mg tablet Take 2 tablets (40 mg) by mouth daily for 2 doses 4 tablet 04/01/19 25 025 Active Problems Patient Care Coordination No te Formatting of this note is d ifferent from the original. BMT Inpatient Care Coordination Overview Diagnosis [facility] Floor [address] Treatment Plan SURPASS Study Auto Cytotoxic T Lymphocyet cell [id number] Reason for Admission SURPASS 09/02 Transplant/IEC Planning BMT/IEC Plan HLA typing/IDMs [] Insurance Approval [] Discharge Planning Anticipated Discharge Date 09/06 Patient Education Completed [x] CAR-T dc ed to pt Issue to be Resolved Before Discharge Discharge Disposition Requests Sent to Case Management, Pharmacy PA Team, or Medical Assistants Post-Discharge Follow-Up Living Situation/Distance from [facility] Caregiver Lab/Transfusion Frequency Venous Access & Care tunneled central venous catheter Local Oncologist Contact Phone: Fax: Post-Discharge Office Visit (H30) ZXC 09/08 Miscellaneous Notes: Problem Noted Date Diagnosed Date Influenza A 03/29/2024 Assessment & Plan (03/29/2024 4:07 AM QUALITY TECHNICIAN FIBERGLASS): RVP positive for influenza A on admission. - start tamiflu - supportive care Diarrhea 03/29/2024 Assessment & Plan (03/30/2024 9:59 AM QUALITY TECHNICIAN FIBERGLASS): Improving Patient endorsing a few days of diarrhea. - check c diff and stool culture-negative - PRN imodium Severe protein-calorie malnutrition 03/29/2024 Fever, unspecified fever cause 02/27/2024 Assessment & Plan (02/28/2024 3:31 PM QUALITY TECHNICIAN F[employer]ER[employer]ASS): Secondary to post-obstructive PNA (see plan above) Postobstructive pneumonia 02/27/2024 Assessment & Plan (03/01/2024 1:59 PM QUALITY TECHNICIAN FIBERGLASS): - s/p recent course of Augmentin without much improvement of his cough. Has been having productive cough for few months now with yellow/green sputum - fever for 1 week, went up to 104 on admission day - RVP positive for RSV --> supportive tx - no leucocytosis - CT chest showed Similar-appearing right upper lobe postobstructive pneumonia with new bilateral lower lobe opacities favored to represent aspiration/pneumonia. - says he get food stuck in his esophagus after eating, no aspiration per him though. SCHOOL JANITOR c/s - looked ok on eval (rec'd reg diet, thin liquids), will order FEES (can't get MBS due to barium allergy) - continue cefepime, add flagyl for anaerobic coverage, stop Vancomycin with MRSA - - F/u sputum Pneumonia PCR - H.flu, RSV+, f/u cx - blood cultures (02/26) NGTD -Antibiotics switched to cefpodoxime for 10 days and to continue Flagyl for 10 days to complete 14 days of total antibiotic course for postobstructive pneumonia -No need of steroids at this time as per Pulmonary team recommendations -Patient follow up with pulmonary clinic and pulmonary rehab for continuity of care within 1-2 months BPH (benign prostatic hyperplasia) 02/27/2024 Assessment & Plan (02/28/2024 3:32 PM QUALITY TECHNICIAN F[employer]ERGLASS): - Continue home flomax - pt states he was previously on Tadalafil daily for BPH but states it was recently stopped - will hold off Pulmonary embolism 02/27/2024 Assessment & Plan (03/29/2024 4:07 AM QUALITY TECHNICIAN F[employer]ERGLASS): In 08/2021, additionally had DVT of RIJ in 2021. Failed xarelto and is currently on home therapeutic lovenox. - continue home lovenox Assessment & Plan (02/28/2024 3:32 PM QUALITY TECHNICIAN FIBERGLASS): PE identified on CT 08/27/2021. 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 Previously on Xarelto. Due to failing DOAC and luminal GI cancer, he has been on therapeutic enoxaparin 1.5 mg/kg daily. - continue therapeutic lovenox Pneumonitis 02/27/2024 Assessment & Plan (02/28/2024 6:07 PM QUALITY TECHNICIAN FIBERGLASS): Patient had recently diagnosed drug induced pneumonitis (on trial with MD Zimmerman (Phase 1, Part A1 dose escalation of [id number] (prodrug of interferon-alpha) monotherapy)) which requiring ICU admission for hypoxemia. He is now off this drug and is s/p steroid taper ending in 01/2024. He has been off o2 for some time after this and is now presenting with fever. At this point, i think his main problem is the post-obstructive pneumonia as his CT really does not show any findings concerning for pneumonitis. I would not empirically reinitiate steroids. I do think involving IP +/- rad onc for management of perihilar mass would be helpful. In interim, would recommend addition of anaerobic coverage to his antibiotics. I do also think eval for possible aspiration would be helpful Plan - add anaerobic coverage to his antibiotics (cefe/flagyl) - agree with IP consultation - no need for steroids at this point - O2A prior to discharge - SCHOOL JANITOR eval/FEES We will sign off. See separate summary of treatment note. Assessment & Plan (02/29/2024 4:13 PM QUALITY TECHNICIAN FIBERGLASS): Grade 4. Secondary to Phase I [id number]. Required ICU admission with oxygen and pressers. Discharged on Prednisone taper. 60 mg PO for 2 days started on 11/16, 40 mg x 7 days, 30 mg x 4 days, 20 mg x 3 days, 10 mg for 7 days, then 5 mg for 7 days. Off oxygen as of ~12/27/23. Finished Prednisone taper on 01/24/24. Cough has been persistent for 2 months. Likely iso post-obstructive PNA and/or aspiration but with history of pneumonitis will tbw Pulm team. - Gen Pulm c/s for steroid recs -Intervention pulmonary signed off, no acute procedural intervention needed for right hilar mass Cough 04/27/2023 Esophageal carcinoma 09/01/2022 Assessment & Plan (03/29/2024 4:07 AM QUALITY TECHNICIAN FIBERGLASS): Follows with Dr. Yousif. Dx 2021. Has had disease progression on multiple lines of therapy. S/p T-cell infusion on Corimmun clinical trial then started on pembro with progression. Most recently, was on trial at [facility] with [id number] (prodrug of interferon-alpha) monotherapy with stable disease. However, subsequently developed pneumonitis requiring ICU admission and pressors. Since then, has received RT to RUL obstructing mass completed on 03/21/24. - med onc c/s Assessment & Plan (02/28/2024 3:31 PM QUALITY TECHNICIAN FIBERGLASS): He was diagnosed in February 2019, received concurrent chemoradiation, then received 1L FOLFOX/ 5FU maintenance without progression for oligometastatic disease (oxaliplatin stopped due to neuropathy), then 2L as ramucirumab/ paclitaxel with progression, then 3L as pembrolizumab from December 2021 until June 2022 with progression. [id number] (autologous CAR T cells), received T-cell infusion on 09/02/2022 followed by nivolumab then progressed on 11/27/22. He is not eligible for the optional 2nd T-cell infusion due to low tumor burden/inability to obtain biopsy (which is required to verify target antigen expression). In December 2022 he is not eligible for any non-phase 1 trials. On 12/21/2022 we proceeded with FOLFIRI C1. CT CAP 02/12/23 after 4 cycles showed disease progression on FOLFIRI. He started cycle 1 FOLFOX on 03/01/23. CT 04/22/23 after 4 cycles of FOLFOX showed disease progression. He started C1D1 Lonsurf on 05/03/23 then stopped Lonsurf and enrolled on [id number] (phase 1 of HPK1 Inhibitor [id number] anti-PD-1 tislelizumab) at [facility], cycle 1 day 1 on 06/04/2023. CT CAP 07/13/2023 showed stable disease. He completed [address] CAP 10/07/2023 showed disease progression. He enrolled in a Phase 1, Part A1 dose escalation of [id number] (prodrug of interferon-alpha) monotherapy at [facility] and started cycle 1 day 1 on 11/09/2023. He subsequently developed pneumonitis requiring oxygen and pressers for hypotension. - CT scan this admission showing Enlarging right perihilar mass with resulting pulmonary artery, vein and right upper lobe bronchus mass effect. 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 - Onc following - pt was planning to see Rad Onc in clinic 02/28 to discuss options - Pulm c/s as elsewhere - SCHOOL JANITOR c/s Hilar mass 08/07/2022 Diastolic congestive heart failure 03/08/2022 Assessment & Plan (02/27/2024 5:00 AM QUALITY TECHNICIAN FIBERGLASS): - G1DD with EF 62% on 11/2023 Echo - mild right leg edema Smoking greater than 30 pack years 03/08/2022 COPD (chronic obstructive pulmonary disease) Assessment & Plan (03/30/2024 9:59 AM QUALITY TECHNICIAN FIBERGLASS): Patient reports nonadherence to home trelegy. -discussed in SOB Assessment & Plan (02/28/2024 3:29 PM QUALITY TECHNICIAN FIBERGLASS): - hx of tobacco use for 40 years, quit. - home fluticasone inhaler, states he stopped his home trelegy Gastroesophageal reflux disease without esophagi tis 02/10/2022 Assessment & Plan (02/28/2024 3:29 PM QUALITY TECHNICIAN FIBERGLASS): home PPI Shortness of breath 01/26/2022 Assessment & Plan (03/31/2024 10:04 AM QUALITY TECHNICIAN FIBERGLASS): #COPD exacerbation-improved Patient with recent admission for post-obstructive pneumonia presenting with new fevers and productive cough. RVP positive for influenza A as well as RSV (was previously hospitalized for RSV in 02/2024). CT with decreased consolidation in both lungs likely representing improving pneumonia and similar findings of postobstructive pneumonia compared to prior. Time course more consistent with new infection iso influenza as opposed to treatment failure. No new findings concerning for pneumonitis. 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 01/16/2022 Anemia 10/23/2021 Assessment & Plan (03/30/2024 10:06 AM QUALITY TECHNICIAN [employer]): Mixed picture of anemia of chronic disease and iron deficiency anemia -CTM Personal history of radiation therapy 12/30/2020 Malignant neoplasm metastatic to bone 04/24/2019 Persons encountering health services in other specified circumstances 03/22/2019 Malignant neoplasm of lower third of esophagus 0 03/17/2019 Immunizations Immunization Administration Dates Next Due Influenza, Quad, Adjuvantated, Intramuscular Influenza, Quadrivalent, Samantha l Culture-based MDCK, Preservative Free, Antibiotic Free, Intramuscular 11/07/2019 Influenza, Quadrivalent, Split, Intramuscular Influenza, Quadrivalent, Spl it, Preservative Free, Intramuscular 10/11/2018,11/17/2017 Influenza, Unspecified 11/04/2022,12/17/2018 Moderna SARS-CoV-2 Monovalent Vaccination (12+ Y RS) 04/26/2020,03/29/2020 Pneumococcal Conjugate PCV 13 03/09/2017 Pneumococcal Conjugate Pcv20 07/21/2022 Pneumococcal, Unspecified 2016 Tdap 10/27/2020 ZOSTER Recombinant 02/10/2018,11/16/2017 Social History Tobacco Use Types Packs/Day Years Used Date Smoking Tobacco: Former Cigarettes 0.1 35 0 07/29/1982 - 07/29/2017 Smokeless Tobacco: Never Tobacco Cessation:Counseling Given: Not Answered Alcohol Use Standard Drinks/Week Comments Yes 0 (1 standard drink = 0.6 oz pur e alcohol) 2/week [facility] Utilities Answer Date Recorded In the past 12 months has th e electric, gas, oil, or water company threatened to shut off services in your [...] week 03/29/2024 How often do you attend chur ch or episcopalian services? 1 to 4 times per year 03/29/2024 Do you belong to any clubs o r organizations such as jainism groups, unions, fraternal or athletic groups, or [...] place to sleep or slept in a residential (including now)? No 09/02/2022 Housing Stability Vital Sign Answer Jeevan e Recorded In the last 12 months, was t here a time when you were not able to pay the mortgage or rent on time? No 03/29/2024 In the past 12 months, how m any times have you moved where you were living? 0 03/29/2024 At any time in the past 12 m [facility], were you homeless or living in a residential (including now)? No 03/29/2024 Personal Safety Answer Date Recorded Have you ever been in or are you currently in a harmful physical or emotional relationship or is someone making you feel afraid or unsafe? Denies 03/29/2024 Sex and Gender Information Value Date Recorded Sex Assigned at Not on file Legal Sex Male 3:57 PM QUALITY TECHNICIAN [employer] Gender Identity Male 03/31/2019 1:28 PM QUALITY TECHNICIAN [employer] Sexual Orientation Straight 03/31/2019 1: 28 PM QUALITY TECHNICIAN [employer] Last Filed Vital Signs Vital Sign Reading Time Taken Comments Blood Pressure 98/54 04/10/2024 11:48 AM QUALITY TECHNICIAN [employer] Pulse 104 04/10/2024 11:48 AM QUALITY TECHNICIAN [employer] Temperature 36.4 C (97.5 F) 04/10/2024 11:48 AM QUALITY TECHNICIAN [employer] Respiratory Rate 18 04/10/2024 11:48 AM QUALITY TECHNICIAN [employer] Oxygen Saturation 96% 04/10/2024 11:48 AM QUALITY TECHNICIAN [employer] Inhaled Oxygen Concentration - - Weight 90.7 kg (200 lb) 04/10/2024 11:48 AM QUALITY TECHNICIAN [employer] Height 175.3 cm (5' 9 ) 04/10/2024 11:48 AM QUALITY TECHNICIAN [employer] Body Mass Index 29.53 04/10/2024 11:48 AM QUALITY TECHNICIAN [employer] Plan of Treatment Not on file Goals Goal Patient Goal Type Associated Problems Recent Progress Patient-Stated? Author CCM Chronic Pain Care Plan Chronic Care Management On track(2022 9:13 AM QUALITY TECHNICIAN [employer]) Madeleine Nguyen, MATIAS Note: Problem: Chronic Pain Goals: 1. Minimize further functional decline 2. Maximize quality of life 3. Control pain Strategies: - Activity/exercise program recommendation - Conservative stepwise pain medicine strategy with multi-disciplinary approach - Recommend healthy lifestyle strategies and compensatory methods as needed Medical Devices Implanted Type Area Casing Finisher And Stuffer Device Identifier Shelf Expiration Date Model / Serial / Lot Vascular Access Power Port N/A: Chest Wall Procedures Procedure Name Priority Date/Time Associated Diagnosis Comments EGFR STAT 04/03/2024 11:33 AM QUALITY TECHNICIAN [employer] Malignant neoplasm of lower third of esophagus (HCC) Malignant neoplasm metastatic to bone (HCC) DIFFERENTIAL AUTO Routine 04/03/2024 11: 33 AM QUALITY TECHNICIAN [employer] Malignant neoplasm of lower third of esophagus (HCC) Malignant neoplasm metastatic to bone (HCC) CBC WITH AUTO DIFFERENTIAL Routine 04/03/2024 11:33 AM QUALITY TECHNICIAN [employer] Malignant neoplasm of lower third of esophagus (HCC) Malignant neoplasm metastatic to bone (HCC) COMPREHENSIVE METABOLIC PANEL STAT 04/03/2024 11:33 AM QUALITY TECHNICIAN [employer] Malignant neoplasm of lower third of esophagus (HCC) Malignant neoplasm metastatic to bone (HCC) PHOSPHORUS STAT 04/03/2024 11:33 AM QUALITY TECHNICIAN [employer] Malignant neoplasm of lower third of esophagus (HCC) Malignant neoplasm metastatic to bone (HCC) EGFR Routine 03/30/2024 9:30 PM QUALITY TECHNICIAN [employer] DIFFERENTIAL AUTO Routine 03/30/2024 9:3 0 PM QUALITY TECHNICIAN [employer] PHOSPHORUS Routine 03/30/2024 9:30 PM QUALITY TECHNICIAN [employer] MAGNESIUM Routine 03/30/2024 9:30 PM QUALITY TECHNICIAN [employer] COMPREHENSIVE METABOLIC PANEL Routine 03/30/2024 9:30 PM QUALITY TECHNICIAN [employer] CBC WITH AUTO DIFFERENTIAL Routine 03/30/2024 9:30 PM QUALITY TECHNICIAN [employer] VITAMIN B12 STAT 03/29/2024 9:49 PM QUALITY TECHNICIAN [employer] EGFR STAT 03/29/2024 9:49 PM QUALITY TECHNICIAN [employer] DIFFERENTIAL AUTO STAT 03/29/2024 9:4 9 PM QUALITY TECHNICIAN [employer] FOLATE STAT 03/29/2024 9:49 PM QUALITY TECHNICIAN [employer] FERRITIN STAT 03/29/2024 9:49 PM QUALITY TECHNICIAN [employer] IRON PROFILE W/ IBC STAT 03/29/2024 9 :49 PM QUALITY TECHNICIAN [employer] PHOSPHORUS STAT 03/29/2024 9:49 PM QUALITY TECHNICIAN [employer] MAGNESIUM STAT 03/29/2024 9:49 PM QUALITY TECHNICIAN [employer] COMPREHENSIVE METABOLIC PANEL STAT 03/29/2024 9:49 PM QUALITY TECHNICIAN [employer] CBC WITH AUTO DIFFERENTIAL STAT 03/29/2024 9:49 PM QUALITY TECHNICIAN [employer] INFECTION PREVENTION MRSA ONLY (STAPHYLOCOCCUS AUREUS) CULTURE Routine 03/29/2024 10:04 AM QUALITY TECHNICIAN [employer] STOOL CULTURE Routine 03/29/2024 5:54 AM QUALITY TECHNICIAN [employer] PNEUMONIA PCR WITH AEROBIC CULTURE AND GRAM STAIN Routine 03/29/2024 5:54 AM QUALITY TECHNICIAN [employer] INFECTION PREVENTION VRE CULTURE Routine 03/29/2024 3:53 AM QUALITY TECHNICIAN [employer] C. DIFFICILE TESTING Routine 03/29/2024 3:53 AM QUALITY TECHNICIAN [employer] PROTIME-INR Routine 03/29/2024 3:44 AM QUALITY TECHNICIAN [employer] APTT Routine 03/29/2024 3:44 AM QUALITY TECHNICIAN [employer] TYPE AND SCREEN Timed 03/29/2024 3:44 AM QUALITY TECHNICIAN [employer] LIPID PANEL Routine 03/29/2024 2:30 AM QUALITY TECHNICIAN [employer] EGFR Routine 03/29/2024 2:30 AM QUALITY TECHNICIAN [employer] DIFFERENTIAL AUTO Routine 03/29/2024 2:3 0 AM QUALITY TECHNICIAN [employer] PHOSPHORUS Routine 03/29/2024 2:30 AM QUALITY TECHNICIAN [employer] COMPREHENSIVE METABOLIC PANEL Routine 03/29/2024 2:30 AM QUALITY TECHNICIAN [employer] MAGNESIUM Routine 03/29/2024 2:30 AM QUALITY TECHNICIAN [employer] CBC WITH AUTO DIFFERENTIAL Routine 03/29/2024 2:30 AM QUALITY TECHNICIAN [employer] CT CHEST ABDOMEN PELVIS W CONTRAST ED Urgent/IP Urgent 03/28/2024 9:05 PM QUALITY TECHNICIAN [employer] BLOOD CULTURE Routine 03/28/2024 8:13 PM QUALITY TECHNICIAN [employer] BLOOD CULTURE Routine 03/28/2024 8:13 PM QUALITY TECHNICIAN [employer] POC BLOOD GAS AND CHEMISTRIES, ARTERIAL Routine 03/28/2024 7:51 PM QUALITY TECHNICIAN [employer] EGFR Routine 03/28/2024 7:47 PM QUALITY TECHNICIAN [employer] DIFFERENTIAL AUTO Routine 03/28/2024 7:4 7 PM QUALITY TECHNICIAN [employer] PROTIME-INR Routine 03/28/2024 7:47 PM QUALITY TECHNICIAN [employer] COMPREHENSIVE METABOLIC PANEL Routine 03/28/2024 7:47 PM QUALITY TECHNICIAN [employer] CBC WITH AUTO DIFFERENTIAL Routine 03/28/2024 7:47 PM QUALITY TECHNICIAN [employer] RESPIRATORY PATHOGEN PANEL Routine 03/28/2024 7:47 PM QUALITY TECHNICIAN [employer] RAD ONC ARIA SESSION SUMMARY 03/21/2024 11:15 AM QUALITY TECHNICIAN [employer] RAD ONC ARIA SESSION SUMMARY 03/20/2024 11:04 AM QUALITY TECHNICIAN [employer] RAD ONC ARIA SESSION SUMMARY 03/17/2024 11:17 AM QUALITY TECHNICIAN [employer] RAD ONC ARIA SESSION SUMMARY 03/16/2024 11:06 AM QUALITY TECHNICIAN [employer] RAD ONC ARIA SESSION SUMMARY 03/15/2024 2:01 PM QUALITY TECHNICIAN [employer] EGFR STAT 03/06/2024 11:52 AM QUALITY TECHNICIAN [employer] Malignant neoplasm of lower third of esophagus (HCC) Malignant neoplasm metastatic to bone (HCC) DIFFERENTIAL AUTO Routine 03/06/2024 11: 52 AM QUALITY TECHNICIAN [employer] Malignant neoplasm of lower third of esophagus (HCC) Malignant neoplasm metastatic to bone (HCC) PHOSPHORUS STAT 03/06/2024 11:52 AM QUALITY TECHNICIAN [employer] Malignant neoplasm of lower third of esophagus (HCC) Malignant neoplasm metastatic to bone (HCC) CBC WITH AUTO DIFFERENTIAL Routine 03/06/2024 11:52 AM QUALITY TECHNICIAN [employer] Malignant neoplasm of lower third of esophagus (HCC) Malignant neoplasm metastatic to bone (HCC) COMPREHENSIVE METABOLIC PANEL STAT 03/06/2024 11:52 AM QUALITY TECHNICIAN [employer] Malignant neoplasm of lower third of esophagus (HCC) Malignant neoplasm metastatic to bone (HCC) EGFR Routine 03/01/2024 1:06 AM QUALITY TECHNICIAN [employer] DIFFERENTIAL AUTO Routine 03/01/2024 1:0 6 AM QUALITY TECHNICIAN [employer] CBC WITH AUTO DIFFERENTIAL Routine 03/01/2024 1:06 AM QUALITY TECHNICIAN [employer] PHOSPHORUS Routine 03/01/2024 1:06 AM QUALITY TECHNICIAN [employer] MAGNESIUM Routine 03/01/2024 1:06 AM QUALITY TECHNICIAN [employer] BASIC METABOLIC PANEL Routine 03/01/2024 1:06 AM QUALITY TECHNICIAN [employer] EGFR Routine 02/29/2024 1:58 AM QUALITY TECHNICIAN [employer] DIFFERENTIAL AUTO Routine 02/29/2024 1:5 8 AM QUALITY TECHNICIAN [employer] CBC WITH AUTO DIFFERENTIAL Routine 02/29/2024 1:58 AM QUALITY TECHNICIAN [employer] PHOSPHORUS Routine 02/29/2024 1:58 AM QUALITY TECHNICIAN [employer] MAGNESIUM Routine 02/29/2024 1:58 AM QUALITY TECHNICIAN [employer] BASIC METABOLIC PANEL Routine 02/29/2024 1:58 AM QUALITY TECHNICIAN [employer] SCHOOL JANITOR EVALUATE AND TREAT FIBEROPTIC ENDOSCOPIC SWALLOW Routine 02/28/2024 4:08 PM QUALITY TECHNICIAN [employer] ERYTHROCYTE SEDIMENTATION RATE Timed 02/28/2024 11:35 AM QUALITY TECHNICIAN [employer] CRP (ACUTE PHASE) Timed 02/28/2024 11: 35 AM QUALITY TECHNICIAN [employer] APTT Timed 02/28/2024 11:35 AM QUALITY TECHNICIAN [employer] PROTIME-INR Timed 02/28/2024 11:35 AM QUALITY TECHNICIAN [employer] SCHOOL JANITOR EVALUATE AND TREAT Routine 02/28/2024 11:06 AM QUALITY TECHNICIAN [employer] EGFR Routine 02/28/2024 12:35 AM QUALITY TECHNICIAN [employer] DIFFERENTIAL AUTO Routine 02/28/2024 12: 35 AM QUALITY TECHNICIAN [employer] CBC WITH AUTO DIFFERENTIAL Routine 02/28/2024 12:35 AM QUALITY TECHNICIAN [employer] BASIC METABOLIC PANEL Routine 02/28/2024 12:35 AM QUALITY TECHNICIAN [employer] MRSA ONLY (STAPHYLOCOCCUS AUREUS) CULTURE Routine 02/27/2024 5:06 AM QUALITY TECHNICIAN [employer] PNEUMONIA PCR Routine 02/27/2024 4:21 AM QUALITY TECHNICIAN [employer] PNEUMONIA PCR WITH AEROBIC CULTURE AND GRAM STAIN Routine 02/27/2024 4:21 AM QUALITY TECHNICIAN [employer] URINALYSIS, MICROSCOPIC ONLY STAT 02/27/2024 2:56 AM QUALITY TECHNICIAN [employer] URINALYSIS AND REFLEX TO MICROSCOPIC AND CULTURE STAT 02/27/2024 2:56 AM QUALITY TECHNICIAN [employer] CT CHEST W CONTRAST ED 02/27/2024 1 :14 AM QUALITY TECHNICIAN [employer] RESPIRATORY PATHOGEN PANEL Routine 02/27/2024 12:15 AM QUALITY TECHNICIAN [employer] BLOOD CULTURE STAT 02/27/2024 12:15 AM QUALITY TECHNICIAN [employer] BLOOD CULTURE STAT 02/27/2024 12:15 AM QUALITY TECHNICIAN [employer] POCT LACTATE - DEVICE Routine 02/26/2024 10:05 PM QUALITY TECHNICIAN [employer] XR CHEST PA LATERAL 2 VIEWS ED 02/26/2024 10:02 PM QUALITY TECHNICIAN [employer] EGFR STAT 02/26/2024 9:53 PM QUALITY TECHNICIAN [employer] DIFFERENTIAL AUTO STAT 02/26/2024 9:5 3 PM QUALITY TECHNICIAN [employer] COMPREHENSIVE METABOLIC PANEL STAT 02/26/2024 9:53 PM QUALITY TECHNICIAN [employer] CBC WITH AUTO DIFFERENTIAL STAT 02/26/2024 9:53 PM QUALITY TECHNICIAN [employer] RESPIRATORY PATHOGEN PANEL Routine 02/07/2024 6:24 PM QUALITY TECHNICIAN [employer] Malignant neoplasm of lower third of esophagus (HCC) Malignant neoplasm metastatic to bone (HCC) EGFR STAT 02/07/2024 12:15 PM QUALITY TECHNICIAN [employer] Malignant neoplasm of lower third of esophagus (HCC) Malignant neoplasm metastatic to bone (HCC) DIFFERENTIAL AUTO Routine 02/07/2024 12: 15 PM QUALITY TECHNICIAN [employer] Malignant neoplasm of lower third of esophagus (HCC) Malignant neoplasm metastatic to bone (HCC) CBC WITH AUTO DIFFERENTIAL Routine 02/07/2024 12:15 PM QUALITY TECHNICIAN [employer] Malignant neoplasm of lower third of esophagus (HCC) Malignant neoplasm metastatic to bone (HCC) COMPREHENSIVE METABOLIC PANEL STAT 02/07/2024 12:15 PM QUALITY TECHNICIAN [employer] Malignant neoplasm of lower third of esophagus (HCC) Malignant neoplasm metastatic to bone (HCC) PHOSPHORUS STAT 02/07/2024 12:15 PM QUALITY TECHNICIAN [employer] Malignant neoplasm of lower third of esophagus (HCC) Malignant neoplasm metastatic to bone (HCC) CT CHEST ABDOMEN PELVIS W CONTRAST Schedule Routine, Read Routine (OP Routine) 02/07/2024 11:42 AM QUALITY TECHNICIAN [employer] Malignant neoplasm of lower third of esophagus (HCC) Malignant neoplasm metastatic to bone (HCC) Secondary malignant neoplasm of liver (HCC) from Last 3 Months Results * eGFR (04/03/2024 11:33 AM QUALITY TECHNICIAN [employer]) eGFR >90 >=60 mL/min/1. 73 m2 Comment: Interpretive Data Reference Interval Normal >/= 90 mL/min/1.73m2 Mildly decreased* 60 - 89 mL/min/1.73m2 Mildly to moderately decreased 45 - 59 mL/min/1.73m2 Moderately to severely decreased 30 - 44 mL/min/1.73m2 Severely decreased 15 - 29 mL/min/1.73m2 Kidney Failure < 15 mL/min/1.73m2 *Relative to young adult level Estimated glomerular filtration rate is determined by the 2020 CKD-EPI equation recommended by the National Kid[employer] (A Unifying Approach to GFR Estimation: Recommendations of the NKF-ASK Task Force on Reassessing the Inclusion of Race in Diagnosing Kidney Disease, JASN 2020). The CKD-EPI equation should not be used for patients with unstable renal function and has not been validated in children and those over 70. Current interpretive data was last reviewed 2020. Blood 04/03/2024 11:3 3 AM QUALITY TECHNICIAN [employer] 04/03/2024 11:36 AM QUALITY TECHNICIAN [employer] us Yakov Yousif MD PhD LAB BLOOD ORDERABLES Fin al Result [facility] Department [place] [address] * Differential, auto (04/03/2024 11:33 AM QUALITY TECHNICIAN [employer]) Neutrophil abs 4.8 1.5 - 6.5 K/cumm Comment:Testing performed by : [facility], [address] [place] [phone] Lymphocyte abs 0.8 0.8 - 3.3 K/cumm [facility] Comment:Testing performed by : [facility], [address] [place] [phone] Monocyte abs 0.6 0.2 - 0.8 K/cumm CERNER BJ Comment:Testing performed by : [facility], [address] [place] [phone] Eosinophil abs 0.0 0.0 - 0.5 K/cumm [facility] Comment:Testing performed by : [facility], [address] [place] [phone] Basophil abs 0.0 0.0 - 0.1 K/cumm [facility] Comment:Testing performed by : [facility], [address] [place] [phone] Neutrophil pct 76.7 % CERNER BJ Comment: Interpretive Data Percent cell count reference ranges are not reported, since discordance with absolute values may lead to misinterpretation of CBC data. Current Interpretive Data was last revised on 2017. Testing performed by: [facility], [address] [place] [phone] Lymphocyte pct 12.1 % C[facility]ER BJ Comment: Interpretive Data Percent cell count reference ranges are not reported, since discordance with absolute values may lead to misinterpretation of CBC data. Current Interpretive Data was last revised on 2017. Testing performed by: [facility], [address] [place] [phone] Monocyte pct 10.4 % C[facility]ER BJ Comment: Interpretive Data Percent cell count reference ranges are not reported, since discordance with absolute values may lead to misinterpretation of CBC data. Current Interpretive Data was last revised on 2017. Testing performed by: [facility], [address] [place] [phone] Eosinophil pct 0.3 % [facility]I DE SANTIAGO Comment: Interpretive Data Percent cell count reference ranges are not reported, since discordance with absolute values may lead to misinterpretation of CBC data. Current Interpretive Data was last revised on 2017. Testing performed by: [facility], [address] [place] [phone] Basophil pct 0.5 % [facility]I DE [facility] Comment: Interpretive Data Percent cell count reference ranges are not reported, since discordance with absolute values may lead to misinterpretation of CBC data. Current Interpretive Data was last revised on 2017. Testing performed by: [facility], [address] [place], [place] [phone] Blood 04/03/2024 11:3 3 AM QUALITY TECHNICIAN [employer] 04/03/2024 11:34 AM QUALITY TECHNICIAN [employer] us Yakov Yousif MD PhD LAB BLOOD ORDERABLES Fin al Result [facility] Department [place] [address] * (ABNORMAL) CBC with auto differential (04/03/2024 11:33 AM QUALITY TECHNICIAN [employer]) WBC 6.2 3.8 - 9.9 K/cumm Comment:Testing performed by : [facility], [address] [place] [address] Hgb 10.6(L) 13.0 - 17.5 g/dL LOLI MCCARTY Comment:Testing performed by : [facility], [address] [place] [address] Hct 32.6(L) 38.9 - 50.3 % LOLI DE SANT[facility]AG[facility] Comment:Testing performed by : [facility], [address] [place] [address] Plt 254 150 - 400 K/cumm [facility] DE [facility] Comment:Testing performed by : [facility], [address] [place], [place] [phone] MPV 8.0 6.8 - 10.4 fL LOLI BJ Comment:Testing performed by : [facility], [address] [place], [place] [phone] RBC 3.94(L) 4.30 - 5.80 M/cumm [facility]I DE SANTIAGO Comment:Testing performed by : [facility], [address] [place], [place] [phone] MCV 82.7 81.3 - 96.4 fL [facility] Comment:Testing performed by : [facility], [address] [place], [place] [phone] MCH 26.8(L) 27.1 - 33.3 pg [facility] Comment:Testing performed by : [facility], [address] [place], [place] [phone] MCHC 32.4 32.3 - 35.7 g/dL [facility] Comment:Testing performed by : [facility], [address] [place], [place] [phone] RDW CV 18.4(H) 11.1 - 14.9 % [facility] Comment:Testing performed by : [facility], [address] [place], [place] [phone] NRBC abs 0.00 0.00 - 0.01 K/cumm [facility] Comment:Testing performed by : [facility], [address] [place], [place] [phone] Blood 04/03/2024 11:3 3 AM QUALITY TECHNICIAN [employer] 04/03/2024 11:34 AM QUALITY TECHNICIAN [employer] us Yakov Yousif MD PhD LAB BLOOD ORDERABLES Fin al Result [facility] Department [place] [address] * Phosphorus (04/03/2024 11:33 AM QUALITY TECHNICIAN [employer]) Phosphorus, pl 3.0 2.3 - 4.5 mg/dL Blood 04/03/2024 11:3 3 AM QUALITY TECHNICIAN [employer] 04/03/2024 11:36 AM QUALITY TECHNICIAN [employer] us Yakov Yousif MD PhD LAB BLOOD ORDERABLES Fin al Result [facility] Department [place] [address] * (ABNORMAL) Comprehensive metabolic panel (04/03/2024 11:33 AM QUALITY TECHNICIAN [employer]) Pathologist [facility] Sodium 139 135 - 145 mmol/L Potassium, pl 3.9 3.3 - 4.9 mmol/L [facility] Chloride 104 97 - 110 mmol/L [facility] CO2 29 22 - 32 mmol/L [facility] Anion gap 6 2 - 15 mmol/L [facility] BUN 19 6 - 25 mg/dL [facility] Creatinine 0.72(L) 0.80 - 1.30 mg/dL [facility] Glucose 94 70 - 199 mg/dL [facility] Comment: Interpretive Data Fasting glucose >/= 126 mg/dl is diagnostic for diabetes. Fasting is defined as no caloric intake for at least 8 hours. Fasting glucose between 100 mg/dl to 125 mg/dl is diagnostic of prediabetes. In a patient with classic symptoms of hyperglycemia or hyperglycemic crisis, a random glucose >/= 200 mg/dl is diagnostic for diabetes. In the absence of unequivocal hyperglycemia, results should be confirmed by repeat testing. The classification and Diagnosis of Diabetes Diabetes Care 2021; 46: S19-S40. Current interpretive data was last revised 2022. Calcium 9.0 8.5 - 10.3 mg/dL [facility] Bilirubin, total 0.3 0.1 - 1.2 mg/dL [facility] Protein, pl 6.5 6.5 - 8.5 g/dL [facility] Albumin 3.4(L) 3.5 - 5.0 g/dL [facility] Alk phos 73 40 - 130 Units/L [facility] ALT 37 7 - 55 Units/L [facility] AST 28 10 - 50 Units/L [facility] Blood 04/03/2024 11:3 3 AM QUALITY TECHNICIAN [employer] 04/03/2024 11:36 AM QUALITY TECHNICIAN [employer] Yakov Yousif MD PhD LAB BLOOD ORDERABLES Fin al Result Performing Organization Address [facility] Co de Phone Number [facility] [place] [address] * eGFR (03/30/2024 9:30 PM QUALITY TECHNICIAN [employer]) eGFR >90 >=60 mL/min/1. 73 m2 Comment: Interpretive Data Reference Interval Normal >/= 90 mL/min/1.73m2 Mildly decreased* 60 - 89 mL/min/1.73m2 Mildly to moderately decreased 45 - 59 mL/min/1.73m2 Moderately to severely decreased 30 - 44 mL/min/1.73m2 Severely decreased 15 - 29 mL/min/1.73m2 Kidney Failure < 15 mL/min/1.73m2 *Relative to young adult level Estimated glomerular filtration rate is determined by the 2020 CKD-EPI equation recommended by the National Kid[employer] (A Unifying Approach to GFR Estimation: Recommendations of the NKF-ASK Task Force on Reassessing the Inclusion of Race in Diagnosing Kidney Disease, JASN 2020). The CKD-EPI equation should not be used for patients with unstable renal function and has not been validated in children and those over 70. Current interpretive data was last reviewed 2020. Blood 03/30/2024 9:30 PM QUALITY TECHNICIAN [employer] 03/30/2024 9:44 PM QUALITY TECHNICIAN [employer] Yakov Yousif MD PhD LAB BLOOD ORDERABLES Fin al Result Performing Organization Address [facility] Co de Phone Number [facility] Department [place] [address] * (ABNORMAL) Differential, auto (03/30/2024 9:30 PM QUALITY TECHNICIAN [employer]) Neutrophil abs 2.0 1.5 - 6.5 K/cumm Imm gran abs 0.0 0.0 - 0.1 K/cumm [facility] Lymphocyte abs 0.4(L) 0.8 - 3.3 K/cumm [facility] Monocyte abs 0.3 0.2 - 0.8 K/cumm [facility] Eosinophil abs 0.0 0.0 - 0.5 K/cumm [facility] Basophil abs 0.0 0.0 - 0.1 K/cumm [facility] Neutrophil pct 74.5 % [facility] Comment: Interpretive Data Percent cell count reference ranges are not reported, since discordance with absolute values may lead to misinterpretation of CBC data. Current Interpretive Data was last revised on 2017. Imm gran pct 0.8 % [facility] Comment: Interpretive Data Percent cell count reference ranges are not reported, since discordance with absolute values may lead to misinterpretation of CBC data. Current Interpretive Data was last revised on 2017. Lymphocyte pct 15.2 % [facility] Comment: Interpretive Data Percent cell count reference ranges are not reported, since discordance with absolute values may lead to misinterpretation of CBC data. Current Interpretive Data was last revised on 2017. Monocyte pct 9.5 % [facility] Comment: Interpretive Data Percent cell count reference ranges are not reported, since discordance with absolute values may lead to misinterpretation of CBC data. Current Interpretive Data was last revised on 2017. Eosinophil pct 0.0 % [facility] Comment: Interpretive Data Percent cell count reference ranges are not reported, since discordance with absolute values may lead to misinterpretation of CBC data. Current Interpretive Data was last revised on 2017. Basophil pct 0.0 % [facility] Comment: Interpretive Data Percent cell count reference ranges are not reported, since discordance with absolute values may lead to misinterpretation of CBC data. Current Interpretive Data was last revised on 2017. Blood 03/30/2024 9:30 PM QUALITY TECHNICIAN [employer] 03/30/2024 9:44 PM QUALITY TECHNICIAN [employer] us Yakov Yousif MD PhD LAB BLOOD ORDERABLES Fin al Result [facility] Department [place] [address] * (ABNORMAL) CBC with auto differential (03/30/2024 9:30 PM QUALITY TECHNICIAN [employer]) [facility] WBC 2.6(L) 3.8 - 9.9 K/cumm Hgb 9.2(L) 13.0 - 17.5 g/dL [facility] Hct 29.3(L) 38.9 - 50.3 % [facility] Plt 199 150 - 400 K/cumm [facility] MPV 9.6 9.1 - 12.3 fL [facility] RBC 3.57(L) 4.30 - 5.80 M/cumm [facility] MCV 82.1 81.3 - 96.4 fL [facility] MCH 25.8(L) 27.1 - 33.3 pg [facility] MCHC 31.4(L) 32.3 - 35.7 g/dL [facility] RDW CV 17.3(H) 11.1 - 14.9 % [facility] RDW SD 52.7(H) 35.7 - 48.1 fL [facility] NRBC abs 0.00 0.00 - 0.01 K/cumm [facility] Blood 03/30/2024 9:30 PM QUALITY TECHNICIAN [employer] 03/30/2024 9:44 PM QUALITY TECHNICIAN [employer] Yakov Yousif MD PhD LAB BLOOD ORDERABLES Fin al Result [facility] Department [place] [address] * (ABNORMAL) Phosphorus (03/30/2024 9:30 PM QUALITY TECHNICIAN [employer]) [facility] Phosphorus, pl 2.0(L) 2.3 - 4.5 mg/dL Blood 03/30/2024 9:30 PM QUALITY TECHNICIAN [employer] 03/30/2024 9:44 PM QUALITY TECHNICIAN [employer] Yakov Yousif MD PhD LAB BLOOD ORDERABLES Fin al Result Performing Organization Address City/[facility]/ZIP Co de Phone Number [facility] Department [place] [address] * Magnesium (03/30/2024 9:30 PM QUALITY TECHNICIAN [employer]) [facility] Magnesium 2.0 1.4 - 2.5 mg/dL Blood 03/30/2024 9:30 PM QUALITY TECHNICIAN [employer] 03/30/2024 9:44 PM QUALITY TECHNICIAN [employer] us Yakov Yousif MD PhD LAB BLOOD ORDERABLES Fin al Result Performing Organization Address [facility] Co de Phone Number [facility] Department [place] [address] * (ABNORMAL) Comprehensive metabolic panel (03/30/2024 9:30 PM QUALITY TECHNICIAN [employer]) [facility] Sodium 135 135 - 145 mmol/L Potassium, pl 4.0 3.3 - 4.9 mmol/L [facility] Chloride 103 97 - 110 mmol/L [facility] CO2 22 22 - 32 mmol/L [facility] Anion gap 10 2 - 15 mmol/L [facility] BUN 19 6 - 25 mg/dL [facility] Creatinine 0.72(L) 0.80 - 1.30 mg/dL [facility] Glucose 219(H) 70 - 199 mg/dL [facility] Comment: Interpretive Data Fasting glucose >/= 126 mg/dl is diagnostic for diabetes. Fasting is defined as no caloric intake for at least 8 hours. Fasting glucose between 100 mg/dl to 125 mg/dl is diagnostic of prediabetes. In a patient with classic symptoms of hyperglycemia or hyperglycemic crisis, a random glucose >/= 200 mg/dl is diagnostic for diabetes. In the absence of unequivocal hyperglycemia, results should be confirmed by repeat testing. The classification and Diagnosis of Diabetes Diabetes Care 202; 46: S19-S40. Current interpretive data was last revised 2022. Calcium 8.2(L) 8.5 - 10.3 mg/dL [facility] Bilirubin, total 0.2 0.1 - 1.2 mg/dL [facility] Protein, pl 6.5 6.5 - 8.5 g/dL [facility] Albumin 3.3(L) 3.5 - 5.0 g/dL [facility] Alk phos 72 40 - 130 Units/L [facility] ALT 34 7 - 55 Units/L [facility] AST 39 10 - 50 Units/L [facility] Blood 03/30/2024 9:30 PM QUALITY TECHNICIAN [employer] 03/30/2024 9:44 PM QUALITY TECHNICIAN [employer] Yakov Yousif MD PhD LAB BLOOD ORDERABLES Fin al Result Performing Organization Address City/[facility]/ZIP Co de Phone Number [facility] Department [place] [address] * eGFR (03/29/2024 9:49 PM QUALITY TECHNICIAN [employer]) eGFR >90 >=60 mL/min/1. 73 m2 Comment: Interpretive Data Reference Interval Normal >/= 90 mL/min/1.73m2 Mildly decreased* 60 - 89 mL/min/1.73m2 Mildly to moderately decreased 45 - 59 mL/min/1.73m2 Moderately to severely decreased 30 - 44 mL/min/1.73m2 Severely decreased 15 - 29 mL/min/1.73m2 Kidney Failure < 15 mL/min/1.73m2 *Relative to young adult level Estimated glomerular filtration rate is determined by the 2020 CKD-EPI equation recommended by the National Kidney Foundation (A Unifying Approach to GFR Estimation: Recommendations of the NKF-ASK Task Force on Reassessing the Inclusion of Race in Diagnosing Kidney Disease, JASN 2020). The CKD-EPI equation should not be used for patients with unstable renal function and has not been validated in children and those over 70. Current interpretive data was last reviewed 2020. Blood 03/29/2024 9:49 PM QUALITY TECHNICIAN [employer] 03/29/2024 10:05 PM QUALITY TECHNICIAN [employer] Yakov Yousif MD PhD LAB BLOOD ORDERABLES Fin al Result Performing Organization Address City/[facility]/ZIP Co de Phone Number [facility] Department [place] [address] * (ABNORMAL) Differential, auto (03/29/2024 9:49 PM QUALITY TECHNICIAN [employer]) Neutrophil abs 2.6 1.5 - 6.5 K/cumm Imm gran abs 0.0 0.0 - 0.1 K/cumm [facility] Lymphocyte abs 0.3(L) 0.8 - 3.3 K/cumm [facility] Monocyte abs 0.1(L) 0.2 - 0.8 K/cumm [facility] Eosinophil abs 0.0 0.0 - 0.5 K/cumm [facility] Basophil abs 0.0 0.0 - 0.1 K/cumm [facility] Neutrophil pct 87.0 % [facility] Comment: Interpretive Data Percent cell count reference ranges are not reported, since discordance with absolute values may lead to misinterpretation of CBC data. Current Interpretive Data was last revised on 2017. Imm gran pct 0.7 % [facility] Comment: Interpretive Data Percent cell count reference ranges are not reported, since discordance with absolute values may lead to misinterpretation of CBC data. Current Interpretive Data was last revised on 2017. Lymphocyte pct 9.2 % [facility] Comment: Interpretive Data Percent cell count reference ranges are not reported, since discordance with absolute values may lead to misinterpretation of CBC data. Current Interpretive Data was last revised on 2017. Monocyte pct 3.1 % [facility] Comment: Interpretive Data Percent cell count reference ranges are not reported, since discordance with absolute values may lead to misinterpretation of CBC data. Current Interpretive Data was last revised on 2017. Eosinophil pct 0.0 % [facility] Comment: Interpretive Data Percent cell count reference ranges are not reported, since discordance with absolute values may lead to misinterpretation of CBC data. Current Interpretive Data was last revised on 2017. Basophil pct 0.0 % [facility] Comment: Interpretive Data Percent cell count reference ranges are not reported, since discordance with absolute values may lead to misinterpretation of CBC data. Current Interpretive Data was last revised on 2017. Blood 03/29/2024 9:49 PM QUALITY TECHNICIAN [employer] 03/29/2024 10:05 PM QUALITY TECHNICIAN [employer] Yakov Yousif MD PhD LAB BLOOD ORDERABLES Fin al Result Performing Organization Address [facility] Co de Phone Number [facility] Department [place] [address] * (ABNORMAL) Iron profile w/ IBC (03/29/2024 9:49 PM QUALITY TECHNICIAN [employer]) [facility] Iron 21(L) 50 - 150 mcg/dL TIBC 127(L) 250 - 400 mcg/dL [facility] Transferrin saturation 17(L) 20 - 50 % [facility] Blood 03/29/2024 9:49 PM QUALITY TECHNICIAN [employer] 03/29/2024 10:05 PM QUALITY TECHNICIAN [employer] Yakov Yousif MD PhD LAB BLOOD ORDERABLES Fin al Result Performing Organization Address [facility] Co de Phone Number [facility] [place] [address] * (ABNORMAL) CBC with auto differential (03/29/2024 9:49 PM QUALITY TECHNICIAN [employer]) [facility] WBC 2.9(L) 3.8 - 9.9 K/cumm Hgb 9.7(L) 13.0 - 17.5 g/dL [facility] Hct 30.8(L) 38.9 - 50.3 % [facility] Plt 204 150 - 400 K/cumm [facility] MPV 10.5 9.1 - 12.3 fL [facility] RBC 3.72(L) 4.30 - 5.80 M/cumm [facility] MCV 82.8 81.3 - 96.4 fL [facility] MCH 26.1(L) 27.1 - 33.3 pg [facility] MCHC 31.5(L) 32.3 - 35.7 g/dL [facility] RDW CV 17.4(H) 11.1 - 14.9 % [facility] RDW SD 53.1(H) 35.7 - 48.1 fL [facility] NRBC abs 0.00 0.00 - 0.01 K/cumm [facility] Blood 03/29/2024 9:49 PM QUALITY TECHNICIAN [employer] 03/29/2024 10:05 PM QUALITY TECHNICIAN [employer] Yakov Yousif MD PhD LAB BLOOD ORDERABLES Fin al Result Performing Organization Address City/[facility] Co de Phone Number [facility] [place] [employer] [place] [address] * Phosphorus (03/29/2024 9:49 PM QUALITY TECHNICIAN [employer]) Phosphorus, pl 2.4 2.3 - 4.5 mg/dL Blood 03/29/2024 9:49 PM QUALITY TECHNICIAN [employer] 03/29/2024 10:05 PM QUALITY TECHNICIAN [employer] Yakov Yousif MD PhD LAB BLOOD ORDERABLES Fin al Result Performing Organization Address [facility] de Phone Number [facility] [place] [employer] [place] [address] * Magnesium (03/29/2024 9:49 PM QUALITY TECHNICIAN [employer]) Magnesium 1.9 1.4 - 2.5 mg/dL Blood 03/29/2024 9:49 PM QUALITY TECHNICIAN [employer] 03/29/2024 10:05 PM QUALITY TECHNICIAN [employer] Yakov Yousif MD PhD LAB BLOOD ORDERABLES Fin al Result Performing Organization Address [facility]/[place] de Phone Number [facility] [place] [place] [address] * Folate (03/29/2024 9:49 PM QUALITY TECHNICIAN [employer]) Folic acid >20.0 >=5.0 ng/mL Blood 03/29/2024 9:49 PM QUALITY TECHNICIAN [employer] 03/29/2024 10:05 PM QUALITY TECHNICIAN [employer] Yakov Yousif MD PhD LAB BLOOD ORDERABLES Fin al Result Performing Organization Address [facility] Co de Phone Number [facility] [place] [address] * (ABNORMAL) Ferritin (03/29/2024 9:49 PM QUALITY TECHNICIAN [employer]) Pathologist [facility] Ferritin 448(H) 30 - 400 ng/mL Blood 03/29/2024 9:49 PM QUALITY TECHNICIAN [employer] 03/29/2024 10:05 PM QUALITY TECHNICIAN [employer] Yakov Yousif MD PhD LAB BLOOD ORDERABLES Fin al Result Performing Organization Address [facility] Co de Phone Number [facility] [place] [address] * (ABNORMAL) Vitamin B12 (03/29/2024 9:49 PM QUALITY TECHNICIAN [employer]) [facility] Vitamin B12 >2,000(H) 230 - 1,250 pg/mL Blood 03/29/2024 9:49 PM QUALITY TECHNICIAN [employer] 03/29/2024 10:05 PM QUALITY TECHNICIAN [employer] Yakov Yousif MD PhD LAB BLOOD ORDERABLES Fin al Result Performing Organization Address [facility] Co de Phone Number [facility] [place] [address] * (ABNORMAL) Comprehensive metabolic panel (03/29/2024 9:49 PM QUALITY TECHNICIAN [employer]) Pathologist [facility] Sodium 135 135 - 145 mmol/L Potassium, pl 4.6 3.3 - 4.9 mmol/L [facility] Chloride 103 97 - 110 mmol/L [facility] CO2 23 22 - 32 mmol/L [facility] Anion gap 9 2 - 15 mmol/L [facility] BUN 21 6 - 25 mg/dL [facility] Creatinine 0.75(L) 0.80 - 1.30 mg/dL [facility] Glucose 186 70 - 199 mg/dL [facility] Comment: Interpretive Data Fasting glucose >/= 126 mg/dl is diagnostic for diabetes. Fasting is defined as no caloric intake for at least 8 hours. Fasting glucose between 100 mg/dl to 125 mg/dl is diagnostic of prediabetes. In a patient with classic symptoms of hyperglycemia or hyperglycemic crisis, a random glucose >/= 200 mg/dl is diagnostic for diabetes. In the absence of unequivocal hyperglycemia, results should be confirmed by repeat testing. The classification and Diagnosis of Diabetes Diabetes Care 2021; 46: S19-S40. Current interpretive data was last revised 2022. Calcium 8.1(L) 8.5 - 10.3 mg/dL [facility] Bilirubin, total 0.2 0.1 - 1.2 mg/dL [facility] Protein, pl 6.6 6.5 - 8.5 g/dL [facility] Albumin 3.2(L) 3.5 - 5.0 g/dL [facility] Alk phos 72 40 - 130 Units/L [facility] ALT 25 7 - 55 Units/L [facility] AST 33 10 - 50 Units/L [facility] Blood 03/29/2024 9:49 PM QUALITY TECHNICIAN [employer] 03/29/2024 10:05 PM QUALITY TECHNICIAN [employer] us Yakov Yousif MD PhD LAB BLOOD ORDERABLES Fin al Result [facility] [place] [address] * Infection Prevention MRSA Only (Staphylococcus aureus) Culture Nasal (03/29/2024 10:04 AM QUALITY TECHNICIAN [employer]) Report Final Report: Negative Nasal 03/29/2024 10:0 4 AM QUALITY TECHNICIAN [employer] 03/29/2024 10:25 AM QUALITY TECHNICIAN [employer] Narrative [facility] - 03/30/2024 11:16 AM QUALITY TECHNICIAN [employer] Testing performed by [facility] ([phone]). us Radha Myles MD [facility] ORDER[facility] Final Result [facility] Department [place] [address] * (ABNORMAL) Pneumonia PCR with aerobic culture and Gram stain Sputum (03/29/2024 5:54 AM QUALITY TECHNICIAN [employer]) Direct Specimen Exam Stain: Abundant squamous epithelial cells seen indicating excessive oropharyngeal contamination. Culture will not be processed further. Please submit another specimen. Smear results called to and read back by: Arielle Grissom RN [phone] on 03/29/2024 09:12:57 by: Isabel Adames MT Direct Specimen Exam Molecular Analysis: Abundant squamous epithelial cells observed on Gram stain. Specimen will not be processed for rapid molecular analysis. [facility] Report Final Report: This is the final report. (.) [facility] Sputum 03/29/2024 5:54 AM QUALITY TECHNICIAN [employer] 03/29/2024 7:48 AM QUALITY TECHNICIAN [employer] Narrative [facility] - 03/30/2024 9:59 AM QUALITY TECHNICIAN [employer] When rapid molecular testing results are reported, testing completed using the [employer] Pneumonia Panel. This molecular assay detects: Acinetobacter calcoaceticus-baumannii complex, Enterobacter cloacae complex, Escherichia coli, Haemophilus influenzae, Enterobacter (Klebsiella) aerogenes, Klebsiella oxytoca, Klebsiella pneumoniae group, Moraxella catarrhalis, Proteus spp., Pseudomonas aeruginosa, Serratia marcescens, Staphylococcus aureus, Streptococcus agalactiae, Streptococcus pneumoniae, and Streptococcus pyogenes. These bacteria are detected and reported semi-quantitatively with bins representing approximately 10^4, 10^5, 10^6, or greater than or equal to 10^7 genomic copies of bacterial nucleic acid per mL (copies/mL) of specimen. These quantities are reported to aid in estimating the relative abundance of organism(s) detected within the specimen and to correlate these results with culture results. For Staphylococcus aureus, mecA/C and MREJ genes are evaluated to predict methicillin resistance or susceptibility. For Gram-negative bacteria, the beta-lactamases CTX-M, IMP, KPC, NDM, VIM and OXA-48-like are evaluated and reported if detected. For Gram-negative organisms, the absence of detection of resistance markers does not exclude resistance. Correlation with final culture results and susceptibility testing is recommended. The [employer] Pneumonia Panel is cleared by the [place] Food and Drug Administration and its performance characteristics have been confirmed by the [facility]. The performance of the [employer] Pneumonia Panel has not been established for monitoring treatment of infection and bacterial nucleic acids may persist independent of organism viability. Radha Myles MD LAB MICROBIOLOGY - G ENERAL ORDERABLES Final Result Performing Organization Address [facility]/ZIP Co de Phone Number [facility] Department [place] [address] * Stool culture Stool Rectum (03/29/2024 5:54 AM QUALITY TECHNICIAN [employer]) Pathologist [facility] Direct Specimen Exam Shiga Toxin Testing: Antigen detection assay for Shiga-toxin NEGATIVE for Shiga Toxin 1 and Shiga Toxin 2. Report Final Report: No growth of enteric bacterial pathogens [facility] Stool (Rectum) 03/29/2024 5: 54 AM QUALITY TECHNICIAN [employer] 03/29/2024 7:51 AM QUALITY TECHNICIAN [employer] Narrative [facility] - 04/02/2024 10:13 AM QUALITY TECHNICIAN [employer] Testing performed by [facility] ([phone]). Routine stool cultures include procedures to detect Salmonella, Shigella, Edwardsiella, Aeromonas, Pleisiomonas, Campylobacter, Yersinia, E. coli O157, and Shiga-like toxins. Vibrio is cultured only upon special request. If Vibrio is suspected, please call the laboratory at [phone]. Interpretive data was last updated June 22, 2016. Radha Myles MD LAB MICROBIOLOGY - G ENERAL ORDERABLES Final Result Performing Organization Address [facility] Co de Phone Number [facility] Department [place] [address] * C. difficile testing Stool (03/29/2024 3:53 AM QUALITY TECHNICIAN [employer]) Pathologist [facility] Result Positive Negative Toxin Result Negative Negative [facility] C. diff result Negative, free toxin. Negative, free toxin [facility] C. diff interp GDH+/toxin- results almost never represent true C. difficile infection (CDI). Results may represent colonization with C. difficile without CDI, detection of a bacteria other than toxigenic C. difficile, or a false negative toxin assay. If there is a high index of suspicion for CDI, additional testing by PCR is available upon request. [facility] Stool 03/29/2024 3:53 AM QUALITY TECHNICIAN [employer] 03/29/2024 4:56 PM QUALITY TECHNICIAN [employer] Yakov Yousif MD PhD LAB MICROBIOLOGY - GENER AL ORDERABLES Final Result Performing Organization Address [facility] Co de Phone Number [facility] [place] [address] * Infection Prevention VRE Culture Stool (03/29/2024 3:53 AM QUALITY TECHNICIAN [employer]) Report Final Report: Negative Stool 03/29/2024 3:53 AM QUALITY TECHNICIAN [employer] 03/29/2024 8:48 PM QUALITY TECHNICIAN [employer] Narrative [facility] - 04/01/2024 1:06 AM QUALITY TECHNICIAN [employer] Surveillance culture for Infection Prevention purposes only; results indicate colonization, not infection requiring treatment. Testing performed by [facility] ([phone]). Yakov Yousif MD PhD LAB MICROBIOLOGY - GENER AL ORDERABLES Final Result Performing Organization Address City/[facility] Co de Phone Number [facility] [place] [place] [address] * aPTT (03/29/2024 3:44 AM QUALITY TECHNICIAN [employer]) aPTT 33 28 - 38 sec Comment: Interpretive Data Heparin therapeutic range: 66.0 - 100.0 seconds. Range based on correlation with therapeutic heparin activity range of 0.3 - 0.7 Units/mL. Current interpretive data was last revised on 2022. Blood 03/29/2024 3:44 AM QUALITY TECHNICIAN [employer] 03/29/2024 4:05 AM QUALITY TECHNICIAN [employer] us Radha Myles MD LAB BLOOD ORDERABLES Final Result [facility] [place] [place] [address] * (ABNORMAL) Protime-INR (03/29/2024 3:44 AM QUALITY TECHNICIAN FIBERGLASS) PT 13.4(H) 9.7 - 13.0 sec INR 1.24(H) 0.90 - 1.20 [facility] Comment: Interpretive data Oral anticoagulant therapeutic ranges: Venous thromboembolism prophylaxis or treatment: 2.0-3.0 CARDIOLOGY Standard range: 2.0-3.0 High-intensity range: 2.5-3.5 Refer to indication-specific guidelines for appropriate target ranges for prosthetic heart valve replacement. Current interpretive data was last revised on 2019. Blood 03/29/2024 3:44 AM QUALITY TECHNICIAN F[employer]ERGLASS 03/29/2024 4:05 AM QUALITY TECHNICIAN [employer]ER[employer]ASS Radha Myles MD LAB BLOOD ORDERABLES Final Result Performing Organization Address City/[facility]/ZIP Co de Phone Number [facility] [place] [place] [address] * Type and screen (03/29/2024 3:44 AM QUALITY TECHNICIAN FIBERGLASS) Zeke, indirect Negative ABO Rh A Positive [facility] Blood 03/29/2024 3:44 AM QUALITY TECHNICIAN F[employer]ER[employer]ASS 03/29/2024 3:57 AM QUALITY TECHNICIAN F[employer]ERGLASS Narrative [facility] - 03/29/2024 4:44 AM QUALITY TECHNICIAN [employer]ER[employer]ASS Has the patient had Daratumumab or Isatuximab in the past 6 months?->Unknown us Radha Myles MD LAB BLOOD BANK TEST ORDERABLES Final Result [facility] [place] [place] [address] * eGFR (03/29/2024 2:30 AM QUALITY TECHNICIAN FIBERGLASS) Pathologist [facility] eGFR 82 >=60 mL/min/1. 73 m2 Comment: Interpretive Data Reference Interval Normal >/= 90 mL/min/1.73m2 Mildly decreased* 60 - 89 mL/min/1.73m2 Mildly to moderately decreased 45 - 59 mL/min/1.73m2 Moderately to severely decreased 30 - 44 mL/min/1.73m2 Severely decreased 15 - 29 mL/min/1.73m2 Kidney Failure < 15 mL/min/1.73m2 *Relative to young adult level Estimated glomerular filtration rate is determined by the 2020 CKD-EPI equation recommended by the National Kidney Foundation (A Unifying Approach to GFR Estimation: Recommendations of the NKF-ASK Task Force on Reassessing the Inclusion of Race in Diagnosing Kidney Disease, JASN 2020). The CKD-EPI equation should not be used for patients with unstable renal function and has not been validated in children and those over 70. Current interpretive data was last reviewed 2020. Blood 03/29/2024 2:30 AM QUALITY TECHNICIAN [employer]ER[employer]ASS 03/29/2024 3:58 AM QUALITY TECHNICIAN F[employer]ER[employer]ASS us Radha Myles MD LAB BLOOD ORDERABLES Final Result [facility] [place] [address] * (ABNORMAL) Differential, auto (03/29/2024 2:30 AM QUALITY TECHNICIAN FIBERGLASS) Pathologist [facility] Neutrophil abs 2.8 1.5 - 6.5 K/cumm Imm gran abs 0.0 0.0 - 0.1 K/cumm [facility] Lymphocyte abs 0.4(L) 0.8 - 3.3 K/cumm [facility] Monocyte abs 0.4 0.2 - 0.8 K/cumm [facility] Eosinophil abs 0.0 0.0 - 0.5 K/cumm [facility] Basophil abs 0.0 0.0 - 0.1 K/cumm [facility] Neutrophil pct 77.2 % [facility] Comment: Interpretive Data Percent cell count reference ranges are not reported, since discordance with absolute values may lead to misinterpretation of CBC data. Current Interpretive Data was last revised on 2017. Imm gran pct 0.3 % [facility] Comment: Interpretive Data Percent cell count reference ranges are not reported, since discordance with absolute values may lead to misinterpretation of CBC data. Current Interpretive Data was last revised on 2017. Lymphocyte pct 11.8 % [facility] Comment: Interpretive Data Percent cell count reference ranges are not reported, since discordance with absolute values may lead to misinterpretation of CBC data. Current Interpretive Data was last revised on 2017. Monocyte pct 10.7 % [facility] Comment: Interpretive Data Percent cell count reference ranges are not reported, since discordance with absolute values may lead to misinterpretation of CBC data. Current Interpretive Data was last revised on 2017. Eosinophil pct 0.0 % [facility] Comment: Interpretive Data Percent cell count reference ranges are not reported, since discordance with absolute values may lead to misinterpretation of CBC data. Current Interpretive Data was last revised on 2017. Basophil pct 0.0 % [facility] Comment: Interpretive Data Percent cell count reference ranges are not reported, since discordance with absolute values may lead to misinterpretation of CBC data. Current Interpretive Data was last revised on 2017. Blood 03/29/2024 2:30 AM QUALITY TECHNICIAN [employer]ASS 03/29/2024 3:58 AM QUALITY TECHNICIAN [employer]ER[employer]ASS us Radha Myles MD LAB BLOOD ORDERABLES Final Result [facility] [place] [address] * (ABNORMAL) CBC with auto differential (03/29/2024 2:30 AM QUALITY TECHNICIAN [employer]ERGLASS) WBC 3.6(L) 3.8 - 9.9 K/cumm Hgb 9.1(L) 13.0 - 17.5 g/dL [facility] Hct 29.4(L) 38.9 - 50.3 % [facility] Plt 180 150 - 400 K/cumm [facility] MPV 9.8 9.1 - 12.3 fL [facility] RBC 3.48(L) 4.30 - 5.80 M/cumm [facility] MCV 84.5 81.3 - 96.4 fL [facility] MCH 26.1(L) 27.1 - 33.3 pg [facility] MCHC 31.0(L) 32.3 - 35.7 g/dL [facility] RDW CV 17.5(H) 11.1 - 14.9 % [facility] RDW SD 54.4(H) 35.7 - 48.1 fL [facility] NRBC abs 0.00 0.00 - 0.01 K/cumm [facility] Blood 03/29/2024 2:30 AM QUALITY TECHNICIAN [employer] 03/29/2024 3:58 AM QUALITY TECHNICIAN [employer]ER[employer]ASS Radha Myles MD LAB BLOOD ORDERABLES Final Result [facility] [place] [place] [address] * Phosphorus (03/29/2024 2:30 AM QUALITY TECHNICIAN FIBERGLASS) Pathologist [facility] Phosphorus, pl 3.0 2.3 - 4.5 mg/dL Blood 03/29/2024 2:30 AM QUALITY TECHNICIAN [employer]ER[employer]ASS 03/29/2024 3:58 AM QUALITY TECHNICIAN [employer]ER[employer]ASS Radha Myles MD LAB BLOOD ORDERABLES Final Result [facility] [place] [place] [address] * Magnesium (03/29/2024 2:30 AM QUALITY TECHNICIAN [employer]ER[employer]ASS) Magnesium 2.1 1.4 - 2.5 mg/dL Blood 03/29/2024 2:30 AM QUALITY TECHNICIAN [employer]ASS 03/29/2024 3:58 AM QUALITY TECHNICIAN [employer]ER[employer]ASS us Radha Myles MD LAB BLOOD ORDERABLES Final Result [facility] [place] [address] * (ABNORMAL) Lipid panel (03/29/2024 2:30 AM QUALITY TECHNICIAN [employer]ER[employer]ASS) Cholesterol 104 30 - 199 mg/dL Comment: Interpretive Data Ages < or = 19 years Acceptable: <170 mg/dL Borderline high: 170-199 mg/dL High: >or= 200 mg/dL Ages > or = 20 years Desirable: <200 mg/dL Borderline high: 200-239 mg/dL High: >or= 240 mg/dL Literature References: 1. Expert Panel on Integrated Guidelines for Cardiovascular Health and Risk Reduction in Children and Adolescents. Pediatrics 2011;128:S213 2. NCEP Expert Panel. Circulation 2004;110:227 Current Interpretive Data was last revised on 2017. Triglycerides 115 <=149 mg/dL [facility] Comment: Interpretive Data Ages < or = 9 years Acceptable: <75 mg/dL Borderline high: 75-99 mg/dL High: >or= 100 mg/dL Ages 10 to 20 years Acceptable: <90 mg/dL Borderline high: 90-129 mg/dL High: >or= 130 mg/dL Ages > or = 20 years Desirable: <150 mg/dL Borderline high: 150-199 mg/dL High: 200-499 mg/dL Very high: >or= 499 mg/dL Literature References: 1. Expert Panel on Integrated Guidelines for Cardiovascular Health and Risk Reduction in Children and Adolescents. Pediatrics 2011;128:S213 2. NCEP Expert Panel. Circulation 2004;110:227 Current Interpretive Data was last revised on 2017. HDL 26(L) >=40 mg/dL [facility] Comment: Interpretive Data Ages < or = 19 years Acceptable: >45 mg/dL Borderline low: 40-45 mg/dL Low: <40 mg/dL Ages > or = 20 years Desirable: >or= 60 mg/dL Low: <40 mg/dL Literature References: 1. Expert Panel on Integrated Guidelines for Cardiovascular Health and Risk Reduction in Children and Adolescents. Pediatrics 2011;128:S213 2. NCEP Expert Panel. Circulation 2004;110:227 Current Interpretive Data was last revised on 2017. LDL, calculated 57 <=129 mg/dL [facility] Comment: Interpretive Data Ages < or = 19 years Acceptable: <110 mg/dL Borderline high: 110-129 mg/dL High: >or= 130 mg/dL Ages > or = 20 years Optimal: <100 mg/dL Near optimal: 100-129 mg/dL Borderline high: 130-159 mg/dL High: >160 mg/dL Calculated using the Saul LDL-C estimating equation. This equation was implemented on 2023. Prior to this date LDL-C was estimated using the Friedewald equation. Literature References: 1. Expert Panel on Integrated Guidelines for Cardiovascular Health and Risk Reduction in Children and Adolescents. Pediatrics 2011;128:S213 2. NCEP Expert Panel. Circulation 2004;110:227 3. Saul Lynn et al. GAUDENCIO Cardiol. 2019June 15;5(5):540-548. doi: 10.1001/[email or web address] Current Interpretive Data was last revised on 2023. Non-HDL Cholesterol 78 mg/dL [facility] Comment: Interpretive Data Ages < or = 19 years Acceptable: <120 mg/dL Borderline high: 120-144 mg/dL High: >145 mg/dL Ages > or = 20 years When triglycerides are >200 mg/dL, Non-HDL cholesterol is a secondary target of therapy with treatment goals that are 30 mg/dL greater than the LDL cholesterol target. Literature References: 1. Expert Panel on Integrated Guidelines for Cardiovascular Health and Risk Reduction in Children and Adolescents. Pediatrics 2011;128:S213 2. NCEP Expert Panel. Circulation 2004;110:227 Current Interpretive Data was last revised on 2017. Chol/HDL ratio 4 [facility] Blood 03/29/2024 2:30 AM QUALITY TECHNICIAN F[employer]ERGLASS 03/29/2024 3:58 AM QUALITY TECHNICIAN FIBERGLASS us Yakov Yousif MD PhD LAB BLOOD ORDERABLES Fin al Result [facility] [place] [address] * (ABNORMAL) Comprehensive metabolic panel (03/29/2024 2:30 AM QUALITY TECHNICIAN FIBERGLASS) Sodium 137 135 - 145 mmol/L Potassium, pl 4.1 3.3 - 4.9 mmol/L [facility] Chloride 106 97 - 110 mmol/L [facility] CO2 24 22 - 32 mmol/L [facility] Anion gap 7 2 - 15 mmol/L [facility] BUN 31(H) 6 - 25 mg/dL [facility] Creatinine 1.01 0.80 - 1.30 mg/dL [facility] Glucose 127 70 - 199 mg/dL [facility] Comment: Interpretive Data Fasting glucose >/= 126 mg/dl is diagnostic for diabetes. Fasting is defined as no caloric intake for at least 8 hours. Fasting glucose between 100 mg/dl to 125 mg/dl is diagnostic of prediabetes. In a patient with classic symptoms of hyperglycemia or hyperglycemic crisis, a random glucose >/= 200 mg/dl is diagnostic for diabetes. In the absence of unequivocal hyperglycemia, results should be confirmed by repeat testing. The classification and Diagnosis of Diabetes Diabetes Care 202; 46: S19-S40. Current interpretive data was last revised 2022. Calcium 8.2(L) 8.5 - 10.3 mg/dL [facility] Bilirubin, total 0.3 0.1 - 1.2 mg/dL [facility] Protein, pl 6.5 6.5 - 8.5 g/dL [facility] Albumin 3.1(L) 3.5 - 5.0 g/dL [facility] Alk phos 69 40 - 130 Units/L [facility] ALT 22 7 - 55 Units/L [facility] AST 36 10 - 50 Units/L [facility] Blood 03/29/2024 2:30 AM QUALITY TECHNICIAN [employer]ASS 03/29/2024 3:58 AM QUALITY TECHNICIAN F[employer]ER[employer]ASS us Radha Myles MD LAB BLOOD ORDERABLES Final Result [facility] [place] [address] * CT Chest Abdomen Pelvis W Contrast (03/28/2024 9:05 PM QUALITY TECHNICIAN FIBERGLASS) Anatomical Region Laterality Modality Body N/A Computed Tomogra phy 03/28/2024 9:41 PM QUALITY TECHNICIAN F[employer]ERGLASS Impressions 03/29/2024 7:09 AM QUALITY TECHNICIAN [employer]ERGLASS 1. Decreased tree-in-bud nodularity and consolidation throughout both lungs most pronounced in the lower lobes, likely representing improving aspiration/ aspiration pneumonia. 2. Slight interval decrease in size of the treated right perihilar mass, with persistent encasement of the hilar vessels and right upper lobe bronchus. Findings of postobstructive pneumonia within the right upper lobe are similar to prior. Unchanged smooth septal line thickening within the right upper lobe may represent edema secondary to venous obstruction, versus lymphangitic carcinomatosis. 3. Stable bilateral adrenal and multifocal osseous metastases. 4. No acute change in the abdomen or pelvis. Dictated by: Pratik Gold MD The radiology attending physician has personally reviewed this study, and had reviewed and/or edited this written report and agrees with it. Electronically signed by: Anjel Olivares M.D. Narrative 03/29/2024 7:09 AM QUALITY TECHNICIAN F[employer]ERGLASS EXAMINATION: CT CHEST ABDOMEN PELVIS W CONTRAST HISTORY: Esophageal cancer. Sepsis. Recent radiation to right upper lobe mass TECHNIQUE: Computed tomographic images of the chest, abdomen, and pelvis were obtained following administration of intravenous 94 ml Optiray-350. COMPARISON: CT chest 02/27/2024. CT chest abdomen pelvis 03/09/2023. FINDINGS: Chest: Multiple areas of tree-in-bud nodularity and nodular consolidation, most pronounced within the lower lobes, are decreased from the prior examination. Slight interval decrease in size of the irregular right perihilar mass, measuring approximately 4.6 x 4.1 cm previously approximately 5.6 x 5.2 cm. Encasement and narrowing of the right superior pulmonary vein, and right upper lobe/right interlobar pulmonary artery is similar to prior. Encasement and severe narrowing of the right upper lobe bronchus is similar to prior. Adjacent septal line thickening within the right upper lobe is similar to prior. Multiple small pulmonary nodules within the right upper lobe are similar to prior. No pleural effusion or pneumothorax. No thoracic lymphadenopathy. There is a small hiatal hernia. Unchanged distal esophageal thickening could represent the reported primary esophageal malignancy. Normal heart size. No pericardial effusion. There are multi vessel coronary artery calcifications. Right internal jugular approach port catheter terminates in the right atrium. Abdomen/pelvis: There is suggestion of diffuse hepatic steatosis. No focal liver lesion. No biliary ductal dilatation. There are small layering stones within the gallbladder. No evidence of acute cholecystitis. The pancreas and spleen are normal. A 3.2 cm right adrenal gland masses unchanged. A 3.7 cm left adrenal gland mass is unchanged. Surrounding fat stranding is similar to prior. Both kidneys enhance symmetrically. No suspicious renal lesion. There is a punctate nonobstructing left renal stone. No hydronephrosis. The urinary bladder and prostate are normal. The stomach is nondistended. A periampullary duodenal diverticulum is present. There is colonic diverticulosis. The appendix is surgically absent. No bowel obstruction or evidence of acute inflammation. No free fluid or air. The portal venous system is patent. There are atherosclerotic calcifications of the abdominal aorta and its branches without aneurysm. No abdominal or pelvic lymphadenopathy. Soft tissues/bones: Multiple sclerotic osseous lesions are not significantly changed. For example: - Right inferior scapula - T12, L3, and L5 vertebral bodies - Right iliac wing Procedure Note Anjel Olivares MD - 03/29/2024 EXAMINATION: CT CHEST ABDOMEN PELVIS W CONTRAST HISTORY: Esophageal cancer. Sepsis. Recent radiation to right upper lobe mass TECHNIQUE: Computed tomographic images of the chest, abdomen, and pelvis were obtained following administration of intravenous 94 ml Optiray-350. COMPARISON: CT chest 02/27/2024. CT chest abdomen pelvis 03/09/2023. FINDINGS: Chest: Multiple areas of tree-in-bud nodularity and nodular consolidation, most pronounced within the lower lobes, are decreased from the prior examination. Slight interval decrease in size of the irregular right perihilar mass, measuring approximately 4.6 x 4.1 cm previously approximately 5.6 x 5.2 cm. Encasement and narrowing of the right superior pulmonary vein, and right upper lobe/right interlobar pulmonary artery is similar to prior. Encasement and severe narrowing of the right upper lobe bronchus is similar to prior. Adjacent septal line thickening within the right upper lobe is similar to prior. Multiple small pulmonary nodules within the right upper lobe are similar to prior. No pleural effusion or pneumothorax. No thoracic lymphadenopathy. There is a small hiatal hernia. Unchanged distal esophageal thickening could represent the reported primary esophageal malignancy. Normal heart size. No pericardial effusion. There are multi vessel coronary artery calcifications. Right internal jugular approach port catheter terminates in the right atrium. Abdomen/pelvis: There is suggestion of diffuse hepatic steatosis. No focal liver lesion. No biliary ductal dilatation. There are small layering stones within the gallbladder. No evidence of acute cholecystitis. The pancreas and spleen are normal. A 3.2 cm right adrenal gland masses unchanged. A 3.7 cm left adrenal gland mass is unchanged. Surrounding fat stranding is similar to prior. Both kidneys enhance symmetrically. No suspicious renal lesion. There is a punctate nonobstructing left renal stone. No hydronephrosis. The urinary bladder and prostate are normal. The stomach is nondistended. A periampullary duodenal diverticulum is present. There is colonic diverticulosis. The appendix is surgically absent. No bowel obstruction or evidence of acute inflammation. No free fluid or air. The portal venous system is patent. There are atherosclerotic calcifications of the abdominal aorta and its branches without aneurysm. No abdominal or pelvic lymphadenopathy. Soft tissues/bones: Multiple sclerotic osseous lesions are not significantly changed. For example: - Right inferior scapula - T12, L3, and L5 vertebral bodies - Right iliac wing IMPRESSION: 1. Decreased tree-in-bud nodularity and consolidation throughout both lungs most pronounced in the lower lobes, likely representing improving aspiration/ aspiration pneumonia. 2. Slight interval decrease in size of the treated right perihilar mass, with persistent encasement of the hilar vessels and right upper lobe bronchus. Findings of postobstructive pneumonia within the right upper lobe are similar to prior. Unchanged smooth septal line thickening within the right upper lobe may represent edema secondary to venous obstruction, versus lymphangitic carcinomatosis. 3. Stable bilateral adrenal and multifocal osseous metastases. 4. No acute change in the abdomen or pelvis. Dictated by: Pratik Gold MD The radiology attending physician has personally reviewed this study, and had reviewed and/or edited this written report and agrees with it. Electronically signed by: Anjel Olivares M.D. Dona Mcnamara MD IMG CT PROCEDURES Final Result * Blood culture Blood (03/28/2024 8:13 PM QUALITY TECHNICIAN [employer]ASS) Report Final Report: No growth Blood 03/28/2024 8:13 PM QUALITY TECHNICIAN [employer]ASS 03/28/2024 8:47 PM QUALITY TECHNICIAN [employer]ER[employer]ASS Narrative [facility] - 04/02/2024 7:00 AM QUALITY TECHNICIAN [employer]ASS 1. Blood cultures are incubated for 4 days on a continuously monitored blood culture system. The first report of a negative culture is issued within 24 hours of receipt of the specimen in the laboratory. 2. Positive culture results are reported as soon as they are detected. 3. The most important factor for detection of microbes in the setting of bloodstream infection is the volume of blood submitted for culture. Failure to collect an optimal blood volume can result in false negative blood cultures. 4. For pediatric patients, the recommended blood volume to collect follows a weight based strategy. See the electronic test catalog for collection instructions. 5. For positive blood cultures, a rapid molecular test may be performed for organism identification using the selena ePlex blood culture identification panel for gram positive (BCID-GP) and gram negative (BCID-GN) organisms. This nucleic acid amplification test detects microbial DNA in positive blood culture broth. This assay has been cleared by the [place] Food and Drug Administration and its performance characteristics have been verified by the [facility]. For questions about this culture, contact the Microbiology Laboratory at [phone]. Interpretive data was last revised on 23. Dona Mcnamara MD LAB MICROBIOLOGY - GENERAL ORDERABLES Final Result [facility] [place] [address] * Blood culture Blood (03/28/2024 8:13 PM QUALITY TECHNICIAN [employer]ER[employer]ASS) Report Final Report: No growth Blood 03/28/2024 8:13 PM QUALITY TECHNICIAN [employer]ASS 03/28/2024 8:47 PM QUALITY TECHNICIAN F[employer]ERGLASS Narrative [facility] 04/02/2024 7:00 AM QUALITY TECHNICIAN [employer]ASS 1. Blood cultures are incubated for 4 days on a continuously monitored blood culture system. The first report of a negative culture is issued within 24 hours of receipt of the specimen in the laboratory. 2. Positive culture results are reported as soon as they are detected. 3. The most important factor for detection of microbes in the setting of bloodstream infection is the volume of blood submitted for culture. Failure to collect an optimal blood volume can result in false negative blood cultures. 4. For pediatric patients, the recommended blood volume to collect follows a weight based strategy. See the electronic test catalog for collection instructions. 5. For positive blood cultures, a rapid molecular test may be performed for organism identification using the selena ePlex blood culture identification panel for gram positive (BCID-GP) and gram negative (BCID-GN) organisms. This nucleic acid amplification test detects microbial DNA in positive blood culture broth. This assay has been cleared by the [place] Food and Drug Administration and its performance characteristics have been verified by the [facility]. For questions about this culture, contact the Microbiology Laboratory at [phone]. Interpretive data was last revised on 23. Dona Mcnamara MD LAB MICROBIOLOGY - GENERAL ORDERABLES Final Result [facility] Department [place] [address] * POC Blood Gas and Chemistries, Arterial - (03/28/2024 7:51 PM QUALITY TECHNICIAN [employer]ER[employer]ASS) Pathologist [facility] Lactate, POC 0.9 0.7 - 2.0 mmol/L Blood 03/28/2024 7:51 PM QUALITY TECHNICIAN [employer] 03/28/2024 7:51 PM QUALITY TECHNICIAN [employer]ASS Kevin Flynn MD LAB POCT ORDERABLES - DEV ICE Final Result [facility] Department [place] [address] * eGFR (03/28/2024 7:47 PM QUALITY TECHNICIAN [employer]ASS) Pathologist [facility] eGFR 74 >=60 mL/min/1. 73 m2 Comment: Interpretive Data Reference Interval Normal >/= 90 mL/min/1.73m2 Mildly decreased* 60 - 89 mL/min/1.73m2 Mildly to moderately decreased 45 - 59 mL/min/1.73m2 Moderately to severely decreased 30 - 44 mL/min/1.73m2 Severely decreased 15 - 29 mL/min/1.73m2 Kidney Failure < 15 mL/min/1.73m2 *Relative to young adult level Estimated glomerular filtration rate is determined by the 2020 CKD-EPI equation recommended by the National Kidney Foundation (A Unifying Approach to GFR Estimation: Recommendations of the NKF-ASK Task Force on Reassessing the Inclusion of Race in Diagnosing Kidney Disease, JASN 2020). The CKD-EPI equation should not be used for patients with unstable renal function and has not been validated in children and those over 70. Current interpretive data was last reviewed 2020. Blood 03/28/2024 7:47 PM QUALITY TECHNICIAN [employer] 03/28/2024 8:09 PM QUALITY TECHNICIAN [employer] Dona Mcnamara MD LAB BLOOD ORDERAB LES Final Result [facility] Department of Laboratories [place], [place] [id number] * (ABNORMAL) Differential, auto (03/28/2024 7:47 PM QUALITY TECHNICIAN [employer]ER[employer]ASS) Pathologist [facility] Neutrophil abs 3.1 1.5 - 6.5 K/cumm Imm gran abs 0.0 0.0 - 0.1 K/cumm [facility] Lymphocyte abs 0.4(L) 0.8 - 3.3 K/cumm [facility] Monocyte abs 0.4 0.2 - 0.8 K/cumm [facility] Eosinophil abs 0.0 0.0 - 0.5 K/cumm [facility] Basophil abs 0.0 0.0 - 0.1 K/cumm [facility] Neutrophil pct 79.4 % [facility] Comment: Interpretive Data Percent cell count reference ranges are not reported, since discordance with absolute values may lead to misinterpretation of CBC data. Current Interpretive Data was last revised on 2017. Imm gran pct 0.3 % [facility] Comment: Interpretive Data Percent cell count reference ranges are not reported, since discordance with absolute values may lead to misinterpretation of CBC data. Current Interpretive Data was last revised on 2017. Lymphocyte pct 11.3 % [facility] Comment: Interpretive Data Percent cell count reference ranges are not reported, since discordance with absolute values may lead to misinterpretation of CBC data. Current Interpretive Data was last revised on 2017. Monocyte pct 9.0 % [facility] Comment: Interpretive Data Percent cell count reference ranges are not reported, since discordance with absolute values may lead to misinterpretation of CBC data. Current Interpretive Data was last revised on 2017. Eosinophil pct 0.0 % [facility] Comment: Interpretive Data Percent cell count reference ranges are not reported, since discordance with absolute values may lead to misinterpretation of CBC data. Current Interpretive Data was last revised on 2017. Basophil pct 0.0 % [facility] Comment: Interpretive Data Percent cell count reference ranges are not reported, since discordance with absolute values may lead to misinterpretation of CBC data. Current Interpretive Data was last revised on 2017. Blood 03/28/2024 7:47 PM QUALITY TECHNICIAN [employer] 03/28/2024 8:08 PM QUALITY TECHNICIAN [employer] oDna Mcnamara MD LAB BLOOD ORDERAB LES Final Result Performing Organization Address City/State/[facility] Co de Phone Number [facility] Department [place] [address] * (ABNORMAL) Respiratory pathogen panel Nasopharyngeal (03/28/2024 7:47 PM QUALITY TECHNICIAN [employer]ER[employer]) Pathologist [facility] Influenza A/2009 RNA Detected(A) Not Detected Influenza B RNA Not Detected Not Detected [facility] RSV RNA Detected(A) Not Detected [facility] COVID-19 RNA Not Detected Not Detected [facility] Coronavirus 229E RNA Not Detected Not Detected [facility] Coronavirus HKU1 RNA Not Detected Not Detected [facility] Coronavirus NL63 RNA Not Detected Not Detected [facility] Coronavirus OC43 RNA Not Detected Not Detected [facility] Adenovirus DNA Not Detected Not Detected [facility] Metapneumovirus RNA Not Detected Not Detected [facility] Rhinovirus/Enterov irus RNA Not Detected Not Detected [facility] Parainfluenza 1 RNA Not Detected Not Detected [facility] Parainfluenza 2 RNA Not Detected Not Detected [facility] Parainfluenza 3 RNA Not Detected Not Detected [facility] Parainfluenza 4 RNA Not Detected Not Detected [facility] B. pertussis DNA Not Detected Not Detected [facility] B. parapertussis DNA Not Detected Not Detected [facility] C. pneumoniae DNA Not Detected Not Detected [facility] M. pneumoniae DNA Not Detected Not Detected [facility] Nasopharyngeal 03/28/2024 7: 47 PM QUALITY TECHNICIAN [employer] 03/28/2024 7:59 PM QUALITY TECHNICIAN [employer] Narrative [facility] - 03/28/2024 9:15 PM QUALITY TECHNICIAN [employer] Is the Patient experiencing symptoms consistent with COVID?->Yes Surveillance testing for transplant patient?->No Interpretive Data The [employer] FilmArray Respiratory Panel (RP2.1) assay is a multiplexed real-time PCR based nucleic acid test capable of simultaneous qualitative detection and identification of multiple respiratory viral and bacterial nucleic acids, including SARS Coronavirus 2 (the causative agent of COVID-19). The following bacteria, viruses and virus subtypes can be identified using the FilmArray RP2.1 assay: Bordetella pertussis, Bordetella parapertussis, Chlamydia pneumoniae, Mycoplasma pneumoniae, Adenovirus, SARS Coronavirus 2, seasonal coronaviruses (Coronavirus HKU1, Coronavirus NL63, Coronavirus 229E, and Coronavirus OC43), Influenza A, Influenza A subtype H1, Influenza A subtype H3, Influenza A subtype 2009 H1, Influenza B, Metapneumovirus, Parainfluenza 1, Parainfluenza 2, Parainfluenza 3, Parainfluenza 4, RSV, Rhinovirus/Enterovirus. Due to the genetic similarity between human Rhinovirus and Enterovirus, the FilmArray RP2.1 assay cannot reliably differentiate them. Coronavirus OC43 may cross-react with some isolates of Coronavirus HKU1. A dual positive result may be due to cross-reactivity or may indicate a co- infection. The detection and identification of specific viral and bacterial nucleic acids from individuals exhibiting signs and symptoms of a respiratory infection aids in the diagnosis of respiratory infection if used in conjunction with other clinical and epidemiological information. The results of this test should not be used as the sole basis for diagnosis, treatment, or other management decisions. Negative results in the setting of a respiratory illness may be due to infection with pathogens that are not detected by this test. Positive results do not rule out infection/co-infection with other organisms. The agent(s) detected by the FilmArray RP2.1 may not be the definite cause of disease. Additional testing (lab, imaging, etc.) may be necessary when evaluating a patient with possible respiratory tract infection. The FilmArray RP2.1 assay has FDA clearance for testing of COMMUNICATION LECTURER swabs. The performance of additional specimen types has been assessed by the performing laboratory. The performance characteristics of this assay have been determined by [facility] Molecular Infectious Disease [facility]. Current interpretive data was last revised on 21. Dona Mcnamara MD LAB MICROBIOLOGY - GENERAL ORDERABLES Final Result [facility] Department [place] [address] * (ABNORMAL) CBC with auto differential (03/28/2024 7:47 PM QUALITY TECHNICIAN [employer]) WBC 3.9 3.8 - 9.9 K/cumm Hgb 10.0(L) 13.0 - 17.5 g/dL [facility] Hct 30.9(L) 38.9 - 50.3 % [facility] Plt 202 150 - 400 K/cumm [facility] MPV 9.9 9.1 - 12.3 fL [facility] RBC 3.76(L) 4.30 - 5.80 M/cumm [facility] MCV 82.2 81.3 - 96.4 fL [facility] MCH 26.6(L) 27.1 - 33.3 pg [facility] MCHC 32.4 32.3 - 35.7 g/dL [facility] RDW CV 17.6(H) 11.1 - 14.9 % [facility] RDW SD 53.4(H) 35.7 - 48.1 fL [facility] NRBC abs 0.00 0.00 - 0.01 K/cumm [facility] Blood 03/28/2024 7:47 PM QUALITY TECHNICIAN [employer] 03/28/2024 8:08 PM QUALITY TECHNICIAN [employer] Dona Mcnamara MD LAB BLOOD ORDERAB LES Final Result Performing Organization Address [facility] de Phone Number [facility] [place] [address] * Protime-INR (03/28/2024 7:47 PM QUALITY TECHNICIAN [employer]ER[employer]) [facility] PT 12.9 9.7 - 13.0 sec INR 1.19 0.90 - 1.20 [facility] Comment: Interpretive data Oral anticoagulant therapeutic ranges: Venous thromboembolism prophylaxis or treatment: 2.0-3.0 CARDIOLOGY Standard range: 2.0-3.0 High-intensity range: 2.5-3.5 Refer to indication-specific guidelines for appropriate target ranges for prosthetic heart valve replacement. Current interpretive data was last revised on 2019. Blood 03/28/2024 7:47 PM QUALITY TECHNICIAN [employer] 03/28/2024 8:11 PM QUALITY TECHNICIAN [employer] Dona Mcnamara MD LAB BLOOD ORDERAB LES Final Result Performing Organization Address [facility] de Phone Number [facility] [place] [address] * (ABNORMAL) Comprehensive metabolic panel (03/28/2024 7:47 PM QUALITY TECHNICIAN F[employer]ERGLASS) Pathologist [facility] Sodium 136 135 - 145 mmol/L Potassium, pl 4.2 3.3 - 4.9 mmol/L [facility] Chloride 102 97 - 110 mmol/L [facility] CO2 24 22 - 32 mmol/L [facility] Anion gap 10 2 - 15 mmol/L [facility] BUN 37(H) 6 - 25 mg/dL [facility] Creatinine 1.10 0.80 - 1.30 mg/dL [facility] Glucose 130 70 - 199 mg/dL [facility] Comment: Interpretive Data Fasting glucose >/= 126 mg/dl is diagnostic for diabetes. Fasting is defined as no caloric intake for at least 8 hours. Fasting glucose between 100 mg/dl to 125 mg/dl is diagnostic of prediabetes. In a patient with classic symptoms of hyperglycemia or hyperglycemic crisis, a random glucose >/= 200 mg/dl is diagnostic for diabetes. In the absence of unequivocal hyperglycemia, results should be confirmed by repeat testing. The classification and Diagnosis of Diabetes Diabetes Care 2021; 46: S19-S40. Current interpretive data was last revised 2022. Calcium 8.8 8.5 - 10.3 mg/dL [facility] Bilirubin, total 0.3 0.1 - 1.2 mg/dL [facility] Protein, pl 7.0 6.5 - 8.5 g/dL [facility] Albumin 3.4(L) 3.5 - 5.0 g/dL [facility] Alk phos 76 40 - 130 Units/L [facility] ALT 22 7 - 55 Units/L [facility] AST 39 10 - 50 Units/L [facility] Blood 03/28/2024 7:47 PM QUALITY TECHNICIAN [employer] 03/28/2024 8:09 PM QUALITY TECHNICIAN [employer]ER[employer] us Dona Mcnamara MD LAB BLOOD ORDERAB LES Final Result [facility] [place] [address] * RAD ONC ARIA SESSION SUMMARY (03/21/2024 11:15 AM QUALITY TECHNICIAN [employer]ER[employer]ASS) Course Name C5_R_Lung_ 25 ARIA Course Plan Date 03/07/2024 6:33 AM ARIA Elapsed Days 6 ARIA Treatment Start Date 03/15/2024 ARIA Treatment Site R LUNG_2000 ARIA Dose Given To Date (cGy) 2,000 ARIA Session Dosage Given (cGy) 400 ARIA Plan ID RT LUNG ARIA Fractions Treated 5 ARIA Prescribed Dose Per Fraction (cGy) 400 ARIA Prescribed Total Dose (cGy) 2,000 ARIA 03/21/2024 11:1 5 AM QUALITY TECHNICIAN [employer]ER[employer]ASS us Not In File Miscellaneous RADIATION ONCOLOGY ORD ERABLES Final Result Performing Organization Address [facility]/ZIP Co de Phone Number DANIAL * RAD ONC ARIA SESSION SUMMARY (03/20/2024 11:04 AM QUALITY TECHNICIAN [employer]ER[employer]ASS) Course Name C5_R_Lung_ 25 ARIA Course Plan Date 03/07/2024 6:33 AM ARIA Elapsed Days 5 ARIA Treatment Start Date 03/15/2024 ARIA Treatment Site R LUNG_1999 ARIA Dose Given To Date (cGy) 1,600 ARIA Session Dosage Given (cGy) 400 ARIA Plan ID RT LUNG ARIA Fractions Treated 4 ARIA Prescribed Dose Per Fraction (cGy) 400 ARIA Prescribed Total Dose (cGy) 2,000 ARIA 03/20/2024 11:0 4 AM QUALITY TECHNICIAN [employer]ER[employer] us Not In File Miscellaneous RADIATION ONCOLOGY ORD ERABLES Final Result Performing Organization Address [facility] Co de Phone Number ARIJessica * RAD ONC ARIA SESSION SUMMARY (03/17/2024 11:17 AM QUALITY TECHNICIAN [employer]ER[employer]ASS) Course Name C5_R_Lung_ 25 ARIA Course Plan Date 03/07/2024 6:33 AM ARIA Elapsed Days 2 ARIA Treatment Start Date 03/15/2024 ARIA Treatment Site R LUNG_2000 ARIA Dose Given To Date (cGy) 1,200 ARIA Session Dosage Given (cGy) 400 ARIA Plan ID RT LUNG ARIA Fractions Treated 3 ARIA Prescribed Dose Per Fraction (cGy) 400 ARIA Prescribed Total Dose (cGy) 2,000 ARIA 03/17/2024 11:1 7 AM QUALITY TECHNICIAN [employer]ER[employer] us Not In File Miscellaneous RADIATION ONCOLOGY ORD ERABLES Final Result [facility] * RAD ONC ARIA SESSION SUMMARY (03/16/2024 11:06 AM QUALITY TECHNICIAN [employer]ER[employer]ASS) Course Name C5_R_Lung_ 25 ARIA Course Plan Date 03/07/2024 6:33 AM ARIA Elapsed Days 1 ARIA Treatment Start Date 03/15/2024 ARIA Treatment Site R LUNG_2000 ARIA Dose Given To Date (cGy) 800 ARIA Session Dosage Given (cGy) 400 ARIA Plan ID RT LUNG ARIA Fractions Treated 2 ARIA Prescribed Dose Per Fraction (cGy) 400 ARIA Prescribed Total Dose (cGy) 2,000 ARIA 03/16/2024 11:0 6 AM QUALITY TECHNICIAN [employer]ER[employer] us Not In File Miscellaneous RADIATION ONCOLOGY ORD ERABLES Final Result Performing Organization Address [facility] Co de Phone Number DANIAL * RAD ONC ARIA SESSION SUMMARY (03/15/2024 2:01 PM QUALITY TECHNICIAN [employer]ERGLASS) Course Name C5_R_Lung_ 25 ARIA Course Plan Date 03/07/2024 6:33 AM ARIA Elapsed Days 0 ARIA Treatment Start Date 03/15/2024 ARIA Treatment Site R LUNG_2000 ARIA Dose Given To Date (cGy) 400 ARIA Session Dosage Given (cGy) 400 ARIA Plan ID RT LUNG ARIA Fractions Treated 1 ARIA Prescribed Dose Per Fraction (cGy) 400 ARIA Prescribed Total Dose (cGy) 2,000 ARIA 03/15/2024 2:01 PM QUALITY TECHNICIAN [employer]ER[employer] us Not In File Miscellaneous RADIATION ONCOLOGY ORD ERABLES Final Result [facility] * eGFR (03/06/2024 11:52 AM QUALITY TECHNICIAN [employer]ER[employer]ASS) eGFR >90 >=60 mL/min/1. 73 m2 Comment: Interpretive Data Reference Interval Normal >/= 90 mL/min/1.73m2 Mildly decreased* 60 - 89 mL/min/1.73m2 Mildly to moderately decreased 45 - 59 mL/min/1.73m2 Moderately to severely decreased 30 - 44 mL/min/1.73m2 Severely decreased 15 - 29 mL/min/1.73m2 Kidney Failure < 15 mL/min/1.73m2 *Relative to young adult level Estimated glomerular filtration rate is determined by the 2020 CKD-EPI equation recommended by the National Kidney [employer] (A Unifying Approach to GFR Estimation: Recommendations of the NKF-ASK Task Force on Reassessing the Inclusion of Race in Diagnosing Kidney Disease, JASN 2020). The CKD-EPI equation should not be used for patients with unstable renal function and has not been validated in children and those over 70. Current interpretive data was last reviewed 2020. Blood 03/06/2024 11:5 2 AM QUALITY TECHNICIAN [employer] 03/06/2024 11:54 AM QUALITY TECHNICIAN [employer]ER[employer] us Yakov Yousif MD PhD LAB BLOOD ORDERABLES Fin al Result [facility] Department [place] [address] * Differential, auto (03/06/2024 11:52 AM QUALITY TECHNICIAN FIBERGLASS) Neutrophil abs 3.5 1.5 - 6.5 K/cumm Comment:Testing performed by : [facility], [address] [place], [place] [phone] Lymphocyte abs 1.1 0.8 - 3.3 K/cumm [facility] Comment:Testing performed by : [facility], [address] [place] [phone] Monocyte abs 0.6 0.2 - 0.8 K/cumm [facility] Comment:Testing performed by : [facility], [address] [place] [address] Eosinophil abs 0.1 0.0 - 0.5 K/cumm [facility] Comment:Testing performed by : [facility], [address] [place] [address] Basophil abs 0.1 0.0 - 0.1 K/cumm [facility] Comment:Testing performed by : [facility], [address] [place] [phone] Neutrophil pct 65.0 % [facility] Comment: Interpretive Data Percent cell count reference ranges are not reported, since discordance with absolute values may lead to misinterpretation of CBC data. Current Interpretive Data was last revised on 2017. Testing performed by: [facility], [address] [place] [phone] Lymphocyte pct 20.0 % [facility] Comment: Interpretive Data Percent cell count reference ranges are not reported, since discordance with absolute values may lead to misinterpretation of CBC data. Current Interpretive Data was last revised on 2017. Testing performed by: [facility], [address] [place] [phone] Monocyte pct 11.4 % [facility] Comment: Interpretive Data Percent cell count reference ranges are not reported, since discordance with absolute values may lead to misinterpretation of CBC data. Current Interpretive Data was last revised on 2017. Testing performed by: [facility], [address] [place] [phone] Eosinophil pct 2.3 % [facility] Comment: Interpretive Data Percent cell count reference ranges are not reported, since discordance with absolute values may lead to misinterpretation of CBC data. Current Interpretive Data was last revised on 2017. Testing performed by: [facility], [address] [place] [phone] Basophil pct 1.3 % [facility] Comment: Interpretive Data Percent cell count reference ranges are not reported, since discordance with absolute values may lead to misinterpretation of CBC data. Current Interpretive Data was last revised on 2017. Testing performed by: [facility], [address] [place] [phone] Blood 03/06/2024 11:5 2 AM QUALITY TECHNICIAN [employer] 03/06/2024 11:53 AM QUALITY TECHNICIAN [employer]ER[employer] us Yakov Yousif MD PhD LAB BLOOD ORDERABLES Fin al Result [facility] [place] [address] * (ABNORMAL) CBC with auto differential (03/06/2024 11:52 AM QUALITY TECHNICIAN F[employer]ERGLASS) WBC 5.4 3.8 - 9.9 K/cumm Comment:Testing performed by : [facility], [address] [place] [address] Hgb 11.1(L) 13.0 - 17.5 g/dL [facility] Comment:Testing performed by : [facility], [address] [place] [address] Hct 34.0(L) 38.9 - 50.3 % [facility] Comment:Testing performed by : [facility], [address] [place] [address] Plt 324 150 - 400 K/cumm [facility] Comment:Testing performed by : [facility], [address] [place] [address] MPV 7.9 6.8 - 10.4 fL [facility] Comment:Testing performed by : [facility], [address] [place] [address] RBC 4.14(L) 4.30 - 5.80 M/cumm [facility] Comment:Testing performed by : [facility], [address] [place] [address] MCV 82.1 81.3 - 96.4 fL [facility] Comment:Testing performed by : [facility], [address] [place] [address] MCH 26.7(L) 27.1 - 33.3 pg [facility] Comment:Testing performed by : [facility], [address] [place] [address] MCHC 32.6 32.3 - 35.7 g/dL [facility] Comment:Testing performed by : [facility], [address] [place] [address] RDW CV 18.8(H) 11.1 - 14.9 % [facility] Comment:Testing performed by : [facility], [address] [place] [phone] NRBC abs 0.00 0.00 - 0.01 K/cumm [facility] Comment:Testing performed by : [facility], [address] [place] [phone] Blood 03/06/2024 11:5 2 AM QUALITY TECHNICIAN [employer]ER[employer] 03/06/2024 11:53 AM QUALITY TECHNICIAN [employer]ER[employer] Yakov Yousif MD PhD LAB BLOOD ORDERABLES Fin al Result Performing Organization Address [facility] Co de Phone Number [facility] [place] [address] * Phosphorus (03/06/2024 11:52 AM QUALITY TECHNICIAN FIBERGLASS) Pathologist [facility] Phosphorus, pl 3.0 2.3 - 4.5 mg/dL Blood 03/06/2024 11:5 2 AM QUALITY TECHNICIAN F[employer]ERGLASS 03/06/2024 11:54 AM QUALITY TECHNICIAN F[employer]ERGLASS Yakov Yousif MD PhD LAB BLOOD ORDERABLES Fin al Result Performing Organization Address [facility] de Phone Number [facility] Department [place] [address] * Comprehensive metabolic panel (03/06/2024 11:52 AM QUALITY TECHNICIAN FIBERGLASS) Sodium 136 135 - 145 mmol/L Potassium, pl 4.8 3.3 - 4.9 mmol/L [facility] Chloride 104 97 - 110 mmol/L [facility] CO2 27 22 - 32 mmol/L [facility] Anion gap 5 2 - 15 mmol/L [facility] BUN 21 6 - 25 mg/dL [facility] Creatinine 0.87 0.80 - 1.30 mg/dL [facility] Glucose 108 70 - 199 mg/dL [facility] Comment: Interpretive Data Fasting glucose >/= 126 mg/dl is diagnostic for diabetes. Fasting is defined as no caloric intake for at least 8 hours. Fasting glucose between 100 mg/dl to 125 mg/dl is diagnostic of prediabetes. In a patient with classic symptoms of hyperglycemia or hyperglycemic crisis, a random glucose >/= 200 mg/dl is diagnostic for diabetes. In the absence of unequivocal hyperglycemia, results should be confirmed by repeat testing. The classification and Diagnosis of Diabetes Diabetes Care 202; 46: S19-S40. Current interpretive data was last revised 2022. Calcium 9.0 8.5 - 10.3 mg/dL [facility] Bilirubin, total 0.3 0.1 - 1.2 mg/dL [facility] Protein, pl 7.0 6.5 - 8.5 g/dL [facility] Albumin 3.6 3.5 - 5.0 g/dL [facility] Alk phos 124 40 - 130 Units/L [facility] ALT 27 7 - 55 Units/L [facility] AST 27 10 - 50 Units/L [facility] Blood 03/06/2024 11:5 2 AM QUALITY TECHNICIAN [employer] 03/06/2024 11:54 AM QUALITY TECHNICIAN F[employer]ER[employer]ASS us Yakov Yousif MD PhD LAB BLOOD ORDERABLES Fin al Result [facility] [place] [address] * eGFR (03/01/2024 1:06 AM QUALITY TECHNICIAN FIBERGLASS) eGFR >90 >=60 mL/min/1. 73 m2 Comment: Interpretive Data Reference Interval Normal >/= 90 mL/min/1.73m2 Mildly decreased* 60 - 89 mL/min/1.73m2 Mildly to moderately decreased 45 - 59 mL/min/1.73m2 Moderately to severely decreased 30 - 44 mL/min/1.73m2 Severely decreased 15 - 29 mL/min/1.73m2 Kidney Failure < 15 mL/min/1.73m2 *Relative to young adult level Estimated glomerular filtration rate is determined by the 2020 CKD-EPI equation recommended by the National Kidney Foundation (A Unifying Approach to GFR Estimation: Recommendations of the NKF-ASK Task Force on Reassessing the Inclusion of Race in Diagnosing Kidney Disease, JASN 2020). The CKD-EPI equation should not be used for patients with unstable renal function and has not been validated in children and those over 70. Current interpretive data was last reviewed 2020. Blood 03/01/2024 1:06 AM QUALITY TECHNICIAN FIBERGLASS 03/01/2024 1:22 AM QUALITY TECHNICIAN FIBERGLASS us Tamika Johnson MD LAB BLOOD ORDERABLES Fi nal Result [facility] Department [place] [address] * Differential, auto (03/01/2024 1:06 AM QUALITY TECHNICIAN FIBERGLASS) Neutrophil abs 3.8 1.5 - 6.5 K/cumm Imm gran abs 0.0 0.0 - 0.1 K/cumm [facility] Lymphocyte abs 0.9 0.8 - 3.3 K/cumm [facility] Monocyte abs 0.8 0.2 - 0.8 K/cumm [facility] Eosinophil abs 0.1 0.0 - 0.5 K/cumm [facility] Basophil abs 0.0 0.0 - 0.1 K/cumm [facility] Neutrophil pct 66.9 % [facility] Comment: Interpretive Data Percent cell count reference ranges are not reported, since discordance with absolute values may lead to misinterpretation of CBC data. Current Interpretive Data was last revised on 2017. Imm gran pct 0.4 % [facility] Comment: Interpretive Data Percent cell count reference ranges are not reported, since discordance with absolute values may lead to misinterpretation of CBC data. Current Interpretive Data was last revised on 2017. Lymphocyte pct 16.8 % [facility] Comment: Interpretive Data Percent cell count reference ranges are not reported, since discordance with absolute values may lead to misinterpretation of CBC data. Current Interpretive Data was last revised on 2017. Monocyte pct 13.4 % [facility] Comment: Interpretive Data Percent cell count reference ranges are not reported, since discordance with absolute values may lead to misinterpretation of CBC data. Current Interpretive Data was last revised on 2017. Eosinophil pct 2.0 % [facility] Comment: Interpretive Data Percent cell count reference ranges are not reported, since discordance with absolute values may lead to misinterpretation of CBC data. Current Interpretive Data was last revised on 2017. Basophil pct 0.5 % [facility] Comment: Interpretive Data Percent cell count reference ranges are not reported, since discordance with absolute values may lead to misinterpretation of CBC data. Current Interpretive Data was last revised on 2017. Blood 03/01/2024 1:06 AM QUALITY TECHNICIAN [employer]ERGLASS 03/01/2024 1:22 AM QUALITY TECHNICIAN FIBERGLASS Tamika Johnson MD LAB BLOOD ORDERABLES nal Result [facility] Department [place] [address] * (ABNORMAL) CBC with auto differential (03/01/2024 1:06 AM QUALITY TECHNICIAN FIBERGLASS) WBC 5.6 3.8 - 9.9 K/cumm Hgb 10.1(L) 13.0 - 17.5 g/dL [facility] Hct 31.6(L) 38.9 - 50.3 % [facility] Plt 272 150 - 400 K/cumm [facility] MPV 10.3 9.1 - 12.3 fL [facility] RBC 3.79(L) 4.30 - 5.80 M/cumm [facility] MCV 83.4 81.3 - 96.4 fL [facility] MCH 26.6(L) 27.1 - 33.3 pg [facility] MCHC 32.0(L) 32.3 - 35.7 g/dL [facility] RDW CV 17.9(H) 11.1 - 14.9 % [facility] RDW SD 54.4(H) 35.7 - 48.1 fL [facility] NRBC abs 0.00 0.00 - 0.01 K/cumm [facility] Blood 03/01/2024 1:06 AM QUALITY TECHNICIAN [employer]ER[employer]ASS 03/01/2024 1:22 AM QUALITY TECHNICIAN F[employer]ERGLASS us Tamika Johnson MD LAB BLOOD [place] [address] * Phosphorus (03/01/2024 1:06 AM QUALITY TECHNICIAN F[employer]ERGLASS) Phosphorus, pl 2.7 2.3 - 4.5 mg/dL Blood 03/01/2024 1:06 AM QUALITY TECHNICIAN [employer]ER[employer]ASS 03/01/2024 1:22 AM QUALITY TECHNICIAN F[employer]ERGLASS us Tamika Johnson MD LAB BLOOD ORDERABLES Fi nal Result Performing Organization Address [facility] Co de Phone Number [facility] [place] [address] * Magnesium (03/01/2024 1:06 AM QUALITY TECHNICIAN FIBERGLASS) Pathologist [facility] Magnesium 1.9 1.4 - 2.5 mg/dL Blood 03/01/2024 1:06 AM QUALITY TECHNICIAN [employer]ER[employer]ASS 03/01/2024 1:22 AM QUALITY TECHNICIAN F[employer]ERGLASS us Tamika Johnson MD LAB BLOOD ORDERABLES Fi nal Result Performing Organization Address City/[facility] Co de Phone Number [facility] [place] [address] * Basic metabolic panel (03/01/2024 1:06 AM QUALITY TECHNICIAN FIBERGLASS) Sodium 136 135 - 145 mmol/L Potassium, pl 4.0 3.3 - 4.9 mmol/L [facility] Chloride 103 97 - 110 mmol/L [facility] CO2 25 22 - 32 mmol/L [facility] Anion gap 8 2 - 15 mmol/L [facility] BUN 19 6 - 25 mg/dL [facility] Creatinine 0.84 0.80 - 1.30 mg/dL [facility] Glucose 123 70 - 199 mg/dL [facility] Comment: Interpretive Data Fasting glucose >/= 126 mg/dl is diagnostic for diabetes. Fasting is defined as no caloric intake for at least 8 hours. Fasting glucose between 100 mg/dl to 125 mg/dl is diagnostic of prediabetes. In a patient with classic symptoms of hyperglycemia or hyperglycemic crisis, a random glucose >/= 200 mg/dl is diagnostic for diabetes. In the absence of unequivocal hyperglycemia, results should be confirmed by repeat testing. The classification and Diagnosis of Diabetes Diabetes Care 2021; 46: S19-S40. Current interpretive data was last revised 2022. Calcium 8.9 8.5 - 10.3 mg/dL [facility] Blood 03/01/2024 1:06 AM QUALITY TECHNICIAN [employer]ER[employer]ASS 03/01/2024 1:22 AM QUALITY TECHNICIAN FIBERGLASS us Tamika Johnson MD LAB BLOOD ORDERABLES Fi nal Result [facility] Department [place] [address] * eGFR (02/29/2024 1:58 AM QUALITY TECHNICIAN F[employer]ERGLASS) eGFR >90 >=60 mL/min/1. 73 m2 Comment: Interpretive Data Reference Interval Normal >/= 90 mL/min/1.73m2 Mildly decreased* 60 - 89 mL/min/1.73m2 Mildly to moderately decreased 45 - 59 mL/min/1.73m2 Moderately to severely decreased 30 - 44 mL/min/1.73m2 Severely decreased 15 - 29 mL/min/1.73m2 Kidney Failure < 15 mL/min/1.73m2 *Relative to young adult level Estimated glomerular filtration rate is determined by the 2020 CKD-EPI equation recommended by the National Kidney [employer] (A Unifying Approach to GFR Estimation: Recommendations of the NKF-ASK Task Force on Reassessing the Inclusion of Race in Diagnosing Kidney Disease, JASN 2020). The CKD-EPI equation should not be used for patients with unstable renal function and has not been validated in children and those over 70. Current interpretive data was last reviewed 2020. Blood 02/29/2024 1:58 AM QUALITY TECHNICIAN F[employer]ERGLASS 02/29/2024 2:19 AM QUALITY TECHNICIAN FIBERGLASS Tamika Johnson MD LAB BLOOD ORDERABLES Fi nal Result [facility] Department [place] [address] * Differential, auto (02/29/2024 1:58 AM QUALITY TECHNICIAN FIBERGLASS) Neutrophil abs 4.8 1.5 - 6.5 K/cumm Imm gran abs 0.0 0.0 - 0.1 K/cumm [facility] Lymphocyte abs 0.9 0.8 - 3.3 K/cumm [facility] Monocyte abs 0.7 0.2 - 0.8 K/cumm [facility] Eosinophil abs 0.2 0.0 - 0.5 K/cumm [facility] Basophil abs 0.0 0.0 - 0.1 K/cumm [facility] Neutrophil pct 72.4 % [facility] Comment: Interpretive Data Percent cell count reference ranges are not reported, since discordance with absolute values may lead to misinterpretation of CBC data. Current Interpretive Data was last revised on 2017. Imm gran pct 0.5 % [facility] Comment: Interpretive Data Percent cell count reference ranges are not reported, since discordance with absolute values may lead to misinterpretation of CBC data. Current Interpretive Data was last revised on 2017. Lymphocyte pct 13.5 % [facility] Comment: Interpretive Data Percent cell count reference ranges are not reported, since discordance with absolute values may lead to misinterpretation of CBC data. Current Interpretive Data was last revised on 2017. Monocyte pct 10.9 % [facility] Comment: Interpretive Data Percent cell count reference ranges are not reported, since discordance with absolute values may lead to misinterpretation of CBC data. Current Interpretive Data was last revised on 2017. Eosinophil pct 2.4 % [facility] Comment: Interpretive Data Percent cell count reference ranges are not reported, since discordance with absolute values may lead to misinterpretation of CBC data. Current Interpretive Data was last revised on 2017. Basophil pct 0.3 % [facility] Comment: Interpretive Data Percent cell count reference ranges are not reported, since discordance with absolute values may lead to misinterpretation of CBC data. Current Interpretive Data was last revised on 2017. Blood 02/29/2024 1:58 AM QUALITY TECHNICIAN F[employer]ERGLASS 02/29/2024 2:18 AM QUALITY TECHNICIAN FIBERGLASS Tamika Johnson MD LAB BLOOD ORDERABLES Fi nal Result Performing Organization Address City/[facility]/ZIP Co de Phone Number [facility] [place] [place] [address] * (ABNORMAL) CBC with auto differential (02/29/2024 1:58 AM QUALITY TECHNICIAN FIBERGLASS) WBC 6.6 3.8 - 9.9 K/cumm Hgb 10.5(L) 13.0 - 17.5 g/dL [facility] Hct 33.1(L) 38.9 - 50.3 % [facility] Plt 267 150 - 400 K/cumm [facility] MPV 10.4 9.1 - 12.3 fL [facility] RBC 3.88(L) 4.30 - 5.80 M/cumm [facility] MCV 85.3 81.3 - 96.4 fL [facility] MCH 27.1 27.1 - 33.3 pg [facility] MCHC 31.7(L) 32.3 - 35.7 g/dL [facility] RDW CV 17.8(H) 11.1 - 14.9 % [facility] RDW SD 55.9(H) 35.7 - 48.1 fL [facility] NRBC abs 0.00 0.00 - 0.01 K/cumm [facility] Blood 02/29/2024 1:58 AM QUALITY TECHNICIAN [employer]ERGLASS 02/29/2024 2:18 AM QUALITY TECHNICIAN FIBERGLASS us Tamika Johnson MD LAB BLOOD ORDERABLES Fi nal Result [facility] Department [place] [address] * Phosphorus (02/29/2024 1:58 AM QUALITY TECHNICIAN FIBERGLASS) Pathologist [facility] Phosphorus, pl 3.0 2.3 - 4.5 mg/dL Blood 02/29/2024 1:58 AM QUALITY TECHNICIAN F[employer]ERGLASS 02/29/2024 2:19 AM QUALITY TECHNICIAN F[employer]ERGLASS Tamika Johnson MD LAB BLOOD ORDERABLES Fi nal Result Performing Organization Address City/[facility] Co de Phone Number [facility] Department [place] [address] * Magnesium (02/29/2024 1:58 AM QUALITY TECHNICIAN FIBERGLASS) [facility] Magnesium 2.1 1.4 - 2.5 mg/dL Blood 02/29/2024 1:58 AM QUALITY TECHNICIAN F[employer]ERGLASS 02/29/2024 2:19 AM QUALITY TECHNICIAN FIBERGLASS Tamika Johnson MD LAB BLOOD ORDERABLES Fi nal Result Performing Organization Address [facility] de Phone Number [facility] [place] [address] * Basic metabolic panel (02/29/2024 1:58 AM QUALITY TECHNICIAN FIBERGLASS) [facility] Sodium 137 135 - 145 mmol/L Potassium, pl 4.2 3.3 - 4.9 mmol/L [facility] Chloride 105 97 - 110 mmol/L [facility] CO2 24 22 - 32 mmol/L [facility] Anion gap 8 2 - 15 mmol/L [facility] BUN 16 6 - 25 mg/dL [facility] Creatinine 0.90 0.80 - 1.30 mg/dL [facility] Glucose 125 70 - 199 mg/dL [facility] Comment: Interpretive Data Fasting glucose >/= 126 mg/dl is diagnostic for diabetes. Fasting is defined as no caloric intake for at least 8 hours. Fasting glucose between 100 mg/dl to 125 mg/dl is diagnostic of prediabetes. In a patient with classic symptoms of hyperglycemia or hyperglycemic crisis, a random glucose >/= 200 mg/dl is diagnostic for diabetes. In the absence of unequivocal hyperglycemia, results should be confirmed by repeat testing. The classification and Diagnosis of Diabetes Diabetes Care 202; 46: S19-S40. Current interpretive data was last revised 2022. Calcium 9.1 8.5 - 10.3 mg/dL [facility] Blood 02/29/2024 1:58 AM QUALITY TECHNICIAN F[employer]ERGLASS 02/29/2024 2:19 AM QUALITY TECHNICIAN FIBERGLASS us Tamika Angie Johnson MD LAB BLOOD ORDERABLES Fi nal Result [facility] Department [place] [address] * SCHOOL JANITOR Evaluate and Treat (FEES) (02/28/2024 4:08 PM QUALITY TECHNICIAN F[employer]ERGLASS) Narrative [facility] - 02/28/2024 4:08 PM QUALITY TECHNICIAN FIBERGLASS Sophie Cortes, GAEL 02/28/2024 4:31 PM Speech-Language Pathology: Flexible Endoscopic Evaluation of Swallowing (FEES) HPI/PMH 68 y.o. male with fever of 104.9 at 5 pm on 02/25. Patient is known case of metastatic esophageal adenocarcinoma, PVT/PE, COPD, GERD, and drug induced Pneumonitis. Respiratory/Intubation Status: RA CT Chest 02/26: Enlarging right perihilar mass with resulting pulmonary artery, vein and right upper lobe bronchus mass effect. 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 Similar-appearing right upper lobe postobstructive pneumonia with new bilateral lower lobe opacities favored to represent aspiration/pneumonia. Continued attention on follow-up imaging is recommended. Enlarging right and stable left adrenal nodule concerning for adrenal metastasis with unchanged sclerotic osseous metastasis is partially imaged. Precautions: none listed in EMR PLOF: no previous SCHOOL JANITOR at this facility Current Diet Order: Regular diet Baseline Diet: Regular diet General Information Nabil Monson 02/28/24 SCHOOL JANITOR Received On: 02/28/24 General Observations: Pt alert sitting up in bed, present throughout session. Good tolerance of FEES scope. Pain Score: 0 - No pain If pain >4, was RN notified? No Patient Stated Goal/Comments: Pt did not state any ST related goals. Clinical Impression & Professional Recommendations Diet Solids Recommendation: Regular Diet Liquids Recommendations: Thin/regular Recommended Form of Medications: As tolerated Postural Recommendations: Upright Specialty Instructions: good oral care Overall Clinical Impression/Additional Information: Pt's swallow is WFL based on this exam. Accepted thin liquids, puree and hard solids. Demonstrated timely mastication, no remarkable residue orally or pharyngeally. Observed intermittent high laryngeal penetration of thin liquids which was not observed to deepen. No aspiration observe during this exam. No further SCHOOL JANITOR indicated. Assessment Details & Results Purpose and Procedure of Flexible Endoscopic Evaluation of Swallowing: Completed to assess oropharyngeal swallow function and evaluate the safety/efficiency of the swallow so that diet recommendations can be made. Results are indicative of performance at time of exam. A flexible endoscope was passed transnasally to the level of the hypopharynx without administration of topical anesthetic. The soft palate, pharynx, larynx, and surrounding structures were viewed. Position During Assessment: Position: Seated upright, in a bed Anatomy and Physiology Anatomy and Physiology Findings: No deficits (hypermobile R arytenoid) Consistencies Administered: Thin liquids, Purees, Solids Thin Liquids: Laryngeal Penetration: Present Aspiration Present: No Penetration Aspiration Scale-Thin: 1-Material does not enter airway Yelena Scale-Vallecular Residue-Thin Liquids: None [place] Scale-Pyriform Sinus Residue-Thin Liquids: None Purees: Laryngeal Penetration: None Aspiration Present: No Penetration Aspiration Scale-Puree: 1-Material does not enter airway Yelena Scale-Vallecular Residue-Puree: None [place] Scale-Pyriform Sinus Residue-Puree: None Solids: Laryngeal Penetration: None Aspiration Present: No Penetration Aspiration Scale-Solids: 1-Material does not enter airway [place] Scale-Vallecular Residue-Solids: None [place] Scale-Pyriform Sinus Residue-Solids: None Dysphagia Outcome and Severity Scale: Dysphagia Outcomes and Severity Scale: 7 Normal Levels 1 & 2 on the YAMILETH indicate need for nonoral nutrition. Treatment Treatment was not provided this date. Please reference care plan for treatment goals and details, if indicated. Plan SCHOOL JANITOR Frequency of Services during current admission: Discharge from this Service SCHOOL JANITOR Recommendation (Add'l Services): No further SCHOOL JANITOR indicated Next Visit Plan:No further ST warranted Additional Referrals: n/a Discharge Summary Statement If this is the last swallow therapy visit, this serves as the discharge summary. us Tamika Johnson MD SCHOOL JANITOR ORDERABLES Final R esult Performing Organization Address [facility] de Phone Number [facility] * aPTT (02/28/2024 11:35 AM QUALITY TECHNICIAN FIBERGLASS) aPTT 31 28 - 38 sec Comment: Interpretive Data Heparin therapeutic range: 66.0 - 100.0 seconds. Range based on correlation with therapeutic heparin activity range of 0.3 - 0.7 Units/mL. Current interpretive data was last revised on 2022. Blood 02/28/2024 11:3 5 AM QUALITY TECHNICIAN [employer]ERGLASS 02/28/2024 11:56 AM QUALITY TECHNICIAN [employer]ERGLASS Tamika Johnson MD LAB BLOOD ORDERABLES Fi nal Result Performing Organization Address [facility] de Phone Number [facility] Department [place] [address] * (ABNORMAL) Erythrocyte sedimentation rate (02/28/2024 11:35 AM QUALITY TECHNICIAN FIBERGLASS) Erythrocyte sedimentation rate 68(H) 1 - 20 mm/hr Blood 02/28/2024 11:3 5 AM QUALITY TECHNICIAN [employer]ERGLASS 02/28/2024 12:10 PM QUALITY TECHNICIAN F[employer]ERGLASS Tamika Johnson MD LAB BLOOD ORDERABLES Fi nal Result Performing Organization Address [facility] Phone Number [facility] Department [place] [address] * (ABNORMAL) Protime-INR (02/28/2024 11:35 AM QUALITY TECHNICIAN FIBERGLASS) PT 13.3(H) 9.7 - 13.0 sec INR 1.23(H) 0.90 - 1.20 [facility] Comment: Interpretive data Oral anticoagulant therapeutic ranges: Venous thromboembolism prophylaxis or treatment: 2.0-3.0 CARDIOLOGY Standard range: 2.0-3.0 High-intensity range: 2.5-3.5 Refer to indication-specific guidelines for appropriate target ranges for prosthetic heart valve replacement. Current interpretive data was last revised on 2019. Blood 02/28/2024 11:3 5 AM QUALITY TECHNICIAN FIBERGLASS 02/28/2024 11:56 AM QUALITY TECHNICIAN F[employer]ERGLASS us Tamika Johnson MD LAB BLOOD ORDERABLES Fi nal Result Performing Organization Address City/[facility] Co de Phone Number [facility] [place] [address] * (ABNORMAL) CRP (acute phase) (02/28/2024 11:35 AM QUALITY TECHNICIAN FIBERGLASS) CRP 118.6(H) <=10.0 mg/L Blood 02/28/2024 11:3 5 AM QUALITY TECHNICIAN F[employer]ERGLASS 02/28/2024 12:08 PM QUALITY TECHNICIAN FIBERGLASS us Tamika Johnson MD LAB BLOOD ORDERABLES Fi nal Result Performing Organization Address [facility] Phone Number [facility] [place] [address] * SCHOOL JANITOR Evaluation and Treatment (02/28/2024 11:06 AM QUALITY TECHNICIAN FIBERGLASS) Narrative Sophie Cortes, SCHOOL JANITOR - 02/28/2024 11:06 AM QUALITY TECHNICIAN [employer]ERGLASS Sophie Cortes, SCHOOL JANITOR 02/28/2024 1:27 PM Speech-Language Pathology: Clinical Bedside Swallow HPI/PMH 68 y.o. male with fever of 104.9 at 5 pm on 02/25. Patient is known case of metastatic esophageal adenocarcinoma, PVT/PE, COPD, GERD, and drug induced Pneumonitis. Respiratory/Intubation Status: RA CT Chest 02/26: Enlarging right perihilar mass with resulting pulmonary artery, vein and right upper lobe bronchus mass effect. 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 Similar-appearing right upper lobe postobstructive pneumonia with new bilateral lower lobe opacities favored to represent aspiration/pneumonia. Continued attention on follow-up imaging is recommended. Enlarging right and stable left adrenal nodule concerning for adrenal metastasis with unchanged sclerotic osseous metastasis is partially imaged. Precautions: none listed in EMR PLOF: no previous SCHOOL JANITOR at this facility Current Diet Order:regular diet Baseline Diet: regular diet General Information Nabil Monson 02/28/24 General Observations: Pt awake sitting upright in bed, his is present throughout this assessment. Pain Score: 0 - No pain If pain >4, was RN notified? No Patient Stated Goal/Comments: Pt did not state any ST related goals, denies dysphagia. Clinical Impression & Professional Recommendations Diet Solids Recommendation: Regular Diet Liquids Recommendations: Thin/regular Recommended Form of Medications: As tolerated Postural Recommendations: Upright Specialty Instructions: good oral care Dysphagia Diagnosis: Within Functional Limits Overall Clinical Impression/Additional Information: Oral mechanism exam unremarkable, has productive cough of yellow sputum. Reports he has been experiencing globus sensation with solids and if he takes large drinks of liquids, sensation at the level of the jugular notch. Pt fed self thin liquids, puree and hard solids demonstrating timely mastication with no remarkable oral residue and no overt s/s of aspiration. No reports of globus sensation during this evaluation however given his reports of globus frequency consider GI consultation. Reviewed general reflux precautions including upright for 30 minutes after meals, elevated HOB when resting, and alternating solids/liquids. No further ST indicated for swallowing. With further concerns for aspiration please re consult for swallow imaging MBS/FEES. Addendum at 1327: following discussion with MD, will pursue FEES to further assess for aspiration Assessment Details & Results Consistencies Administered: Thin liquids, Purees, Solids MASA: Garza Assessment of Swallowing Ability (MASA) Alertness: Alert Cooperation: Cooperative Auditory Comprehension: No abnormality detected Respiration: Chest clear Respiratory Rate (for swallow): Able to control breath rate for swallow Aphasia: No abnormality detected Apraxia: No abnormality detected Dysarthria: No abnormality detected Saliva: No abnormality detected Lip Seal: No abnormality detected Tongue Movement: Full range of motion Tongue Strength: No abnormality detected Tongue Coordination: No abnormality detected Gag: No gag (did not assess) Palate: No abnormality detected Cough Reflex: No deficit noted Voluntary Cough: No abnormality detected Voice: No abnormality detected Trach: No trach Oral Preparation: No deficits noted Bolus Clearance: Fully cleared Oral Transit: No deficits noted Pharyngeal Phase: Immediate laryngeal elevation Pharyngeal Response: No deficits noted MASA Score: 196 Dysphagia: No dysphagia detected (178-200) Aspiration Risk: No aspiration risk (170-200) Plan SCHOOL JANITOR Frequency of Services during current admission: One-time visit (Discharge from this service) SCHOOL JANITOR Recommendation (Add'l Services): No further SCHOOL JANITOR indicated Further Assessment/Follow up Indicated: Recommendations: GI evaluation Next Visit Plan:No further ST warranted Additional Referrals: n/a Please reference care plan for treatment goals, if indicated. Discharge Summary Statement If this is the last swallow therapy visit, this serves as the discharge summary. Sridhar Manning MD SCHOOL JANITOR ORDERABLES Edited Resul t - Final * eGFR (02/28/2024 12:35 AM QUALITY TECHNICIAN [employer]ER[employer]) eGFR >90 >=60 mL/min/1. 73 m2 Comment: Interpretive Data Reference Interval Normal >/= 90 mL/min/1.73m2 Mildly decreased* 60 - 89 mL/min/1.73m2 Mildly to moderately decreased 45 - 59 mL/min/1.73m2 Moderately to severely decreased 30 - 44 mL/min/1.73m2 Severely decreased 15 - 29 mL/min/1.73m2 Kidney Failure < 15 mL/min/1.73m2 *Relative to young adult level Estimated glomerular filtration rate is determined by the 2020 CKD-EPI equation recommended by the National Kid[employer] (A Unifying Approach to GFR Estimation: Recommendations of the NKF-ASK Task Force on Reassessing the Inclusion of Race in Diagnosing Kidney Disease, JASN 2020). The CKD-EPI equation should not be used for patients with unstable renal function and has not been validated in children and those over 70. Current interpretive data was last reviewed 2020. Blood 02/28/2024 12:3 5 AM QUALITY TECHNICIAN [employer] 02/28/2024 1:02 AM QUALITY TECHNICIAN [employer] us Sridhar Manning MD LAB BLOOD ORDERABLES Final R esult [facility] [place] [address] * Differential, auto (02/28/2024 12:35 AM QUALITY TECHNICIAN F[employer]ER[employer]ASS) Neutrophil abs 6.1 1.5 - 6.5 K/cumm Imm gran abs 0.0 0.0 - 0.1 K/cumm [facility] Lymphocyte abs 0.9 0.8 - 3.3 K/cumm [facility] Monocyte abs 0.7 0.2 - 0.8 K/cumm [facility] Eosinophil abs 0.1 0.0 - 0.5 K/cumm [facility] Basophil abs 0.0 0.0 - 0.1 K/cumm [facility] Neutrophil pct 77.9 % [facility] Comment: Interpretive Data Percent cell count reference ranges are not reported, since discordance with absolute values may lead to misinterpretation of CBC data. Current Interpretive Data was last revised on 2017. Imm gran pct 0.5 % [facility] Comment: Interpretive Data Percent cell count reference ranges are not reported, since discordance with absolute values may lead to misinterpretation of CBC data. Current Interpretive Data was last revised on 2017. Lymphocyte pct 10.9 % [facility] Comment: Interpretive Data Percent cell count reference ranges are not reported, since discordance with absolute values may lead to misinterpretation of CBC data. Current Interpretive Data was last revised on 2017. Monocyte pct 9.0 % [facility] Comment: Interpretive Data Percent cell count reference ranges are not reported, since discordance with absolute values may lead to misinterpretation of CBC data. Current Interpretive Data was last revised on 2017. Eosinophil pct 1.4 % [facility] Comment: Interpretive Data Percent cell count reference ranges are not reported, since discordance with absolute values may lead to misinterpretation of CBC data. Current Interpretive Data was last revised on 2017. Basophil pct 0.3 % [facility] Comment: Interpretive Data Percent cell count reference ranges are not reported, since discordance with absolute values may lead to misinterpretation of CBC data. Current Interpretive Data was last revised on 2017. Blood 02/28/2024 12:3 5 AM QUALITY TECHNICIAN [employer] 02/28/2024 1:02 AM QUALITY TECHNICIAN [employer] us Sridhar Manning MD LAB BLOOD ORDERABLES Final R esult [facility] Department [place] [address] * (ABNORMAL) CBC with auto differential (02/28/2024 12:35 AM QUALITY TECHNICIAN [employer]ER[employer]ASS) [facility] WBC 7.9 3.8 - 9.9 K/cumm Hgb 10.1(L) 13.0 - 17.5 g/dL [facility] Hct 32.3(L) 38.9 - 50.3 % [facility] Plt 246 150 - 400 K/cumm [facility] MPV 10.1 9.1 - 12.3 fL [facility] RBC 3.82(L) 4.30 - 5.80 M/cumm [facility] MCV 84.6 81.3 - 96.4 fL [facility] MCH 26.4(L) 27.1 - 33.3 pg [facility] MCHC 31.3(L) 32.3 - 35.7 g/dL [facility] RDW CV 18.1(H) 11.1 - 14.9 % [facility] RDW SD 55.5(H) 35.7 - 48.1 fL [facility] NRBC abs 0.00 0.00 - 0.01 K/cumm [facility] Blood 02/28/2024 12:3 5 AM QUALITY TECHNICIAN [employer] 02/28/2024 1:02 AM QUALITY TECHNICIAN [employer] us Sridhar Manning MD LAB BLOOD ORDERABLES Final R esult [facility] Department [place] [address] * Basic metabolic panel (02/28/2024 12:35 AM QUALITY TECHNICIAN [employer]ER[employer]ASS) [facility] Sodium 138 135 - 145 mmol/L Potassium, pl 4.0 3.3 - 4.9 mmol/L [facility] Chloride 108 97 - 110 mmol/L [facility] CO2 22 22 - 32 mmol/L [facility] Anion gap 8 2 - 15 mmol/L [facility] BUN 15 6 - 25 mg/dL [facility] Creatinine 0.86 0.80 - 1.30 mg/dL [facility] Glucose 110 70 - 199 mg/dL [facility] Comment: Interpretive Data Fasting glucose >/= 126 mg/dl is diagnostic for diabetes. Fasting is defined as no caloric intake for at least 8 hours. Fasting glucose between 100 mg/dl to 125 mg/dl is diagnostic of prediabetes. In a patient with classic symptoms of hyperglycemia or hyperglycemic crisis, a random glucose >/= 200 mg/dl is diagnostic for diabetes. In the absence of unequivocal hyperglycemia, results should be confirmed by repeat testing. The classification and Diagnosis of Diabetes Diabetes Care 2021; 46: S19-S40. Current interpretive data was last revised 2022. Calcium 8.5 8.5 - 10.3 mg/dL [facility] Blood 02/28/2024 12:3 5 AM QUALITY TECHNICIAN [employer] 02/28/2024 1:02 AM QUALITY TECHNICIAN [employer] Sridhar Manning MD LAB BLOOD ORDERABLES Final R esult Performing Organization Address City/[facility]/ZIP Co de Phone Number [facility] Department [place] [address] * MRSA Only (Staphylococcus aureus) Culture Nasal (02/27/2024 5:06 AM QUALITY TECHNICIAN [employer]ER[employer]ASS) Report Final Report: Negative Nasal 02/27/2024 5:06 AM QUALITY TECHNICIAN [employer] 02/27/2024 5:42 AM QUALITY TECHNICIAN [employer]ER[employer]ASS Narrative [facility] - 02/28/2024 7:26 AM QUALITY TECHNICIAN [employer] Testing performed by [facility] ([phone]). us Sridhar Manning MD LAB MICROBIOLOGY - GENERAL O RDERABLES Final Result Performing Organization Address City/[facility]/ZIP Co de Phone Number [facility] Department [place] [address] * (ABNORMAL) Pneumonia PCR Sputum (02/27/2024 4:21 AM QUALITY TECHNICIAN [employer]) C. pneumoniae DNA Not Detected Not Detected Legionella pneumophila DNA Not Detected Not Detected [facility] M. pneumoniae DNA Not Detected Not Detected [facility] Adenovirus DNA Not Detected Not Detected [facility] Coronavirus (229E, OC43, HKU1, NL63) RNA Not Detected Not Detected [facility] Metapneumovirus RNA Not Detected Not Detected [facility] Rhinovirus/Enterov irus RNA Not Detected Not Detected [facility] Influenza A RNA Not Detected Not Detected [facility] Influenza B RNA Not Detected Not Detected [facility] Parainfluenza virus (1-4) RNA Not Detected Not Detected [facility] RSV RNA Detected(A) Not Detected [facility] Sputum 02/27/2024 4:21 AM QUALITY TECHNICIAN [employer] 02/27/2024 8:48 AM QUALITY TECHNICIAN [employer]ER[employer] [facility]ative [facility] 02/27/2024 10:20 AM QUALITY TECHNICIAN [employer] The BioFire Pneumonia Panel is a multiplexed nucleic acid test capable of simultaneous detection and identification of multiple respiratory viruses and bacteria. This panel detects Adenovirus, coronaviruses (Coronavirus HKU1, Coronavirus NL63, Coronavirus 229E, and Coronavirus OC43), Influenza A, Influenza B, Human metapneumovirus, Parainfluenza (1-4), RSV, Rhinovirus/Enterovirus, Chlamydia pneumoniae, Mycoplasma pneumoniae, and Legionella pneumophila. Additional aerobic bacterial targets are reported with the accompanying culture results with the same accession number. Rhinovirus and Enterovirus are genetically similar and cannot be reliably differentiated with this method. Negative adenovirus results should be confirmed by an alternative methodology (i.e. standalone PCR) if the suspicion for adenovirus infection is high. The results of this test must be considered in the clinical context of the patient and should not be used as the sole basis for diagnosis, treatment, or other management decisions. Negative results in the setting of a respiratory illness may be due to infection with pathogens that are not detected by this test. Positive results do not rule out infection/co-infection with other organisms. The BioFire Pneumonia Panel is FDA cleared for lower respiratory tract specimens. The performance characteristics of this assay have been determined by [facility]. Current interpretive data was last revised on 2023. Sridhar Manning MD LAB MICROBIOLOGY - GENERAL O RDERABLES Final Result [facility] Department [place] [address] * (ABNORMAL) Pneumonia PCR with aerobic culture and Gram stain Sputum (02/27/2024 4:21 AM QUALITY TECHNICIAN [employer]) Direct Specimen Exam Molecular Analysis: Greater than or equal to 10^7 copies/mL Haemophilus influenzae Correlation of molecular analysis with final culture results is recommended. Direct Specimen Exam Stain: Few polymorphonuclear leukocytes seen. Few squamous epithelial cells seen. Moderate mixed bacterial bailey seen on Gram stain. [facility] Report Final Report: Growth indicates upper respiratory bailey. (.) [facility] Organism GROWTH INDICATES UPPER RESPIRATORY BAILEY. [facility] Sputum 02/27/2024 4:21 AM QUALITY TECHNICIAN [employer] 02/27/2024 6:10 AM QUALITY TECHNICIAN [employer]ER[employer] Narrative [facility] - 03/01/2024 6:49 AM QUALITY TECHNICIAN [employer]ER[employer]ASS When rapid molecular testing results are reported, testing completed using the [employer] Pneumonia Panel. This molecular assay detects: Acinetobacter calcoaceticus-baumannii complex, Enterobacter cloacae complex, Escherichia coli, Haemophilus influenzae, Enterobacter (Klebsiella) aerogenes, Klebsiella oxytoca, Klebsiella pneumoniae group, Moraxella catarrhalis, Proteus spp., Pseudomonas aeruginosa, Serratia marcescens, Staphylococcus aureus, Streptococcus agalactiae, Streptococcus pneumoniae, and Streptococcus pyogenes. These bacteria are detected and reported semi-quantitatively with bins representing approximately 10^4, 10^5, 10^6, or greater than or equal to 10^7 genomic copies of bacterial nucleic acid per mL (copies/mL) of specimen. These quantities are reported to aid in estimating the relative abundance of organism(s) detected within the specimen and to correlate these results with culture results. For Staphylococcus aureus, mecA/C and MREJ genes are evaluated to predict methicillin resistance or susceptibility. For Gram-negative bacteria, the beta-lactamases CTX-M, IMP, KPC, NDM, VIM and OXA-48-like are evaluated and reported if detected. For Gram-negative organisms, the absence of detection of resistance markers does not exclude resistance. Correlation with final culture results and susceptibility testing is recommended. The [employer] International[employer] Pneumonia Panel is cleared by the [place] Food and Drug Administration and its performance characteristics have been confirmed by the [facility]. The performance of the FilmArray Pneumonia Panel has not been established for monitoring treatment of infection and bacterial nucleic acids may persist independent of organism viability. us Sridhar Manning MD LAB MICROBIOLOGY - GENERAL O RDERABLES Final Result [facility] Department [place] [address] * (ABNORMAL) Urinalysis reflex to microscopic and culture Urine (02/27/2024 2:56 AM QUALITY TECHNICIAN F[employer]ER[employer]ASS) Color, ur Straw Yellow Clarity, ur Clear Clear [facility] Specific gravity, ur >1.042(H) 1.003 - 1.030 [facility] pH, urine 6.5 [facility] Comment: Interpretive Data U rine pH is affected by diet, medications, systemic acid-base disturbances, and renal tubular function. pH may affect urinary stone formation. For example, urine pH below 6.0 may help reduce the tendency for calcium phosphate stones and pH greater than 6.0 may reduce the tendency for uric acid stone formation. Source: [facility] Current Interpretive Data was last revised on 2017 Protein, ur ql 1+(A) Negative [facility] Glucose, ur ql Negative Negative [facility] Ketones, ur Negative Negative [facility] Bilirubin, ur Negative Negative [facility] Blood, ur Negative Negative [facility] Urobilinogen, ur <2.0 <2.0 mg/dL [facility] Nitrite, ur Negative Negative [facility] Leukocyte esterase, ur Negative Negative [facility] UA reflex comment Reflex to microscopic UA will be performed. [facility] Urine 02/27/2024 2:56 AM QUALITY TECHNICIAN [employer] 02/27/2024 3:02 AM QUALITY TECHNICIAN [employer] Narrative [facility] - 02/27/2024 3:18 AM QUALITY TECHNICIAN [employer] If patient unable to urinate, straight cath us Johnny Garcia MD LAB MICROBIOLOGY - GENER AL ORDERABLES Final Result Performing Organization Address City/[facility]/ZIP Co de Phone Number [facility] Department [place] [address] * (ABNORMAL) Urinalysis, microscopic only (02/27/2024 2:56 AM QUALITY TECHNICIAN [employer]) WBC, ur 0-5 0 - 5 /HPF RBC, ur 0-2 0 - 2 /HPF [facility] Epithelial cells, squamous, ur 1-5 0 - 5 /HPF [facility] Mucous, ur Present(A) [facility] Culture Reflex Comment Reflex conditions for urine culture (WBC >10) not met. [facility] Urine 02/27/2024 2:56 AM QUALITY TECHNICIAN [employer] 02/27/2024 3:02 AM QUALITY TECHNICIAN [employer] us Johnny Garcia MD LAB URINE ORDERABLES Fin al Result [facility] [place] [address] * CT Chest W Contrast (02/27/2024 1:14 AM QUALITY TECHNICIAN F[employer]ER[employer]ASS) Anatomical Region Laterality Modality Body N/A Computed Tomogra phy 02/27/2024 1:57 AM QUALITY TECHNICIAN [employer] Impressions 02/27/2024 5:58 AM QUALITY TECHNICIAN [employer] Enlarging right perihilar mass with resulting pulmonary artery, vein and right upper lobe bronchus mass effect. 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 Similar-appearing right upper lobe postobstructive pneumonia with new bilateral lower lobe opacities favored to represent aspiration/pneumonia. Continued attention on follow-up imaging is recommended. Enlarging right and stable left adrenal nodule concerning for adrenal metastasis with unchanged sclerotic osseous metastasis is partially imaged. Dictated by: Jama Urias M.D. The radiology attending physician has personally reviewed this study, and had reviewed and/or edited this written report and agrees with it. Electronically signed by: Chris Guardado M.D. Narrative 02/27/2024 5:58 AM QUALITY TECHNICIAN [employer]ASS EXAMINATION: Computed tomography of the chest with intravenous contrast HISTORY: 68-year-old male with esophageal cancer with fevers. TECHNIQUE: Transaxial computed tomographic images of the chest were obtained with intravenous contrast according to the standard protocol after the uneventful administration of 69 mL Opti-Ray 350 intravenous contrast. COMPARISON: Comparison CT from 02/07/2024. FINDINGS: Central airways normal stenotic with narrowing of the right upper lobe bronchus consistent in the setting of enlarging right perihilar mass. Thyroid appears normal. Heart size normal with no pericardial effusion. Extensive multivessel coronary atherosclerosis is seen. No cervical, axillary or mediastinal lymphadenopathy is seen. Right internal jugular chest wall port catheter with tip terminating at the superior cavoatrial junction. Enlarging right perihilar soft tissue mass measuring 6.3 x 6 cm, previously 5.9 x 5.3 cm (series 2 image 52). Resulting mass effect causes narrowing on the right main pulmonary artery, vein and right upper lobe bronchus. Similar appearing persistent right upper lobe nodularity with ill-defined groundglass nodule and nodular septal line thickening redemonstrated. For reference 9 mm right upper lobe pulmonary nodule appears unchanged (series 3 image 29). Unchanged 3 mm left upper lobe pulmonary nodule again seen (series 3 image 18). No pneumothorax or pleural effusion is seen. New bilateral lower lobe consolidation favored to represent sequelae of aspiration pneumonia. Diffuse hepatic steatosis with no focal hepatic lesions. Imaged gallbladder appears normal with no biliary ductal dilatation seen. Enlarging right and stable left adrenal nodule again seen. Normal appearing spleen and imaged pancreas. Sclerotic osseous metastasis involving T12 vertebral body redemonstrated with no new osseous metastasis is seen. Are present with no acute fractures seen. Procedure Note Chris Guardado MD - 02/27/2024 EXAMINATION: Computed tomography of the chest with intravenous contrast HISTORY: 68-year-old male with esophageal cancer with fevers. TECHNIQUE: Transaxial computed tomographic images of the chest were obtained with intravenous contrast according to the standard protocol after the uneventful administration of 69 mL Opti-Ray 350 intravenous contrast. COMPARISON: Comparison CT from 02/07/2024. FINDINGS: Central airways normal stenotic with narrowing of the right upper lobe bronchus consistent in the setting of enlarging right perihilar mass. Thyroid appears normal. Heart size normal with no pericardial effusion. Extensive multivessel coronary atherosclerosis is seen. No cervical, axillary or mediastinal lymphadenopathy is seen. Right internal jugular chest wall port catheter with tip terminating at the superior cavoatrial junction. Enlarging right perihilar soft tissue mass measuring 6.3 x 6 cm, previously 5.9 x 5.3 cm (series 2 image 52). Resulting mass effect causes narrowing on the right main pulmonary artery, vein and right upper lobe bronchus. Similar appearing persistent right upper lobe nodularity with ill-defined groundglass nodule and nodular septal line thickening redemonstrated. For reference 9 mm right upper lobe pulmonary nodule appears unchanged (series 3 image 29). Unchanged 3 mm left upper lobe pulmonary nodule again seen (series 3 image 18). No pneumothorax or pleural effusion is seen. New bilateral lower lobe consolidation favored to represent sequelae of aspiration pneumonia. Diffuse hepatic steatosis with no focal hepatic lesions. Imaged gallbladder appears normal with no biliary ductal dilatation seen. Enlarging right and stable left adrenal nodule again seen. Normal appearing spleen and imaged pancreas. Sclerotic osseous metastasis involving T12 vertebral body redemonstrated with no new osseous metastasis is seen. Are present with no acute fractures seen. IMPRESSION: Enlarging right perihilar mass with resulting pulmonary artery, vein and right upper lobe bronchus mass effect. 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 Similar-appearing right upper lobe postobstructive pneumonia with new bilateral lower lobe opacities favored to represent aspiration/pneumonia. Continued attention on follow-up imaging is recommended. Enlarging right and stable left adrenal nodule concerning for adrenal metastasis with unchanged sclerotic osseous metastasis is partially imaged. Dictated by: Jama Urias M.D. The radiology attending physician has personally reviewed this study, and had reviewed and/or edited this written report and agrees with it. Electronically signed by: Chris Guardado M.D. Naomi Downs MD [facility] CT PROCEDURES Final Result * (ABNORMAL) Respiratory pathogen panel Nasopharyngeal (02/27/2024 12:15 AM QUALITY TECHNICIAN [employer]) Influenza A RNA Not Detected Not Detected Influenza B RNA Not Detected Not Detected [facility] RSV RNA Detected(A) Not Detected [facility] COVID-19 RNA Not Detected Not Detected [facility] Coronavirus 229E RNA Not Detected Not Detected [facility] Coronavirus HKU1 RNA Not Detected Not Detected [facility] Coronavirus NL63 RNA Not Detected Not Detected [facility] Coronavirus OC43 RNA Not Detected Not Detected [facility] Adenovirus DNA Not Detected Not Detected [facility] Metapneumovirus RNA Not Detected Not Detected [facility] Rhinovirus/Enterov irus RNA Not Detected Not Detected [facility] Parainfluenza 1 RNA Not Detected Not Detected [facility] Parainfluenza 2 RNA Not Detected Not Detected [facility] Parainfluenza 3 RNA Not Detected Not Detected [facility] Parainfluenza 4 RNA Not Detected Not Detected [facility] B. pertussis DNA Not Detected Not Detected [facility] B. parapertussis DNA Not Detected Not Detected [facility] C. pneumoniae DNA Not Detected Not Detected [facility] M. pneumoniae DNA Not Detected Not Detected [facility] Nasopharyngeal 02/27/2024 12 :15 AM QUALITY TECHNICIAN [employer] 02/27/2024 1:24 AM QUALITY TECHNICIAN [employer] Narrative [facility] - 02/27/2024 2:34 AM QUALITY TECHNICIAN [employer]ER[employer]ASS Is the Patient experiencing symptoms consistent with COVID?->Yes Surveillance testing for transplant patient?->No Interpretive Data The [employer] FilmArray Respiratory Panel (RP2.1) assay is a multiplexed real-time PCR based nucleic acid test capable of simultaneous qualitative detection and identification of multiple respiratory viral and bacterial nucleic acids, including SARS Coronavirus 2 (the causative agent of COVID-19). The following bacteria, viruses and virus subtypes can be identified using the FilmArray RP2.1 assay: Bordetella pertussis, Bordetella parapertussis, Chlamydia pneumoniae, Mycoplasma pneumoniae, Adenovirus, SARS Coronavirus 2, seasonal coronaviruses (Coronavirus HKU1, Coronavirus NL63, Coronavirus 229E, and Coronavirus OC43), Influenza A, Influenza A subtype H1, Influenza A subtype H3, Influenza A subtype 2009 H1, Influenza B, Metapneumovirus, Parainfluenza 1, Parainfluenza 2, Parainfluenza 3, Parainfluenza 4, RSV, Rhinovirus/Enterovirus. Due to the genetic similarity between human Rhinovirus and Enterovirus, the FilmArray RP2.1 assay cannot reliably differentiate them. Coronavirus OC43 may cross-react with some isolates of Coronavirus HKU1. A dual positive result may be due to cross-reactivity or may indicate a co- infection. The detection and identification of specific viral and bacterial nucleic acids from individuals exhibiting signs and symptoms of a respiratory infection aids in the diagnosis of respiratory infection if used in conjunction with other clinical and epidemiological information. The results of this test should not be used as the sole basis for diagnosis, treatment, or other management decisions. Negative results in the setting of a respiratory illness may be due to infection with pathogens that are not detected by this test. Positive results do not rule out infection/co-infection with other organisms. The agent(s) detected by the FilmArray RP2.1 may not be the definite cause of disease. Additional testing (lab, imaging, etc.) may be necessary when evaluating a patient with possible respiratory tract infection. The FilmArray RP2.1 assay has FDA clearance for testing of COMMUNICATION LECTURER swabs. The performance of additional specimen types has been assessed by the performing laboratory. The performance characteristics of this assay have been determined by [facility] Molecular Infectious Disease Laboratory. Current interpretive data was last revised on 21. Naomi Downs MD LAB MICROBIOLOGY - [facility] ORDERABLES Final Result [facility] Department [place] [address] * Blood culture Blood Peripheral (02/27/2024 12:15 AM QUALITY TECHNICIAN FIBERGLASS) Report Final Report: No growth Blood (Peripheral) 02/27/2024 12:15 AM QUALITY TECHNICIAN FIBER[employer]ASS 02/27/2024 1:08 AM QUALITY TECHNICIAN FIBERGLASS Narrative [facility] - 03/02/2024 7:00 AM QUALITY TECHNICIAN FIBERGLASS From a different site than #1. Draw Blood cultures before administration of Antibiotics Collection->Peripheral 1. Blood cultures are incubated for 4 days on a continuously monitored blood culture system. The first report of a negative culture is issued within 24 hours of receipt of the specimen in the laboratory. 2. Positive culture results are reported as soon as they are detected. 3. The most important factor for detection of microbes in the setting of bloodstream infection is the volume of blood submitted for culture. Failure to collect an optimal blood volume can result in false negative blood cultures. 4. For pediatric patients, the recommended blood volume to collect follows a weight based strategy. See the electronic test catalog for collection instructions. 5. For positive blood cultures, a rapid molecular test may be performed for organism identification using the selena ePlex blood culture identification panel for gram positive (BCID-GP) and gram negative (BCID-GN) organisms. This nucleic acid amplification test detects microbial DNA in positive blood culture broth. This assay has been cleared by the [facility] Food and Drug Administration and its performance characteristics have been verified by the [facility] Microbiology Laboratory. For questions about this culture, contact the Microbiology Laboratory at [phone]. Interpretive data was last revised on 23. Naomi Downs MD LAB MICROBIOLOGY - GENER AL ORDERABLES Final Result [facility] Department [place] [address] * Blood culture Blood Peripheral (02/27/2024 12:15 AM QUALITY TECHNICIAN FIBERGLASS) Report Final Report: No growth Blood (Peripheral) 02/27/2024 12:15 AM QUALITY TECHNICIAN FIBERGLASS 02/27/2024 1:08 AM QUALITY TECHNICIAN FIBERGLASS Narrative [facility] - 03/02/2024 7:00 AM QUALITY TECHNICIAN FIBERGLASS Draw Blood cultures before administration of Antibiotics Collection->Peripheral 1. Blood cultures are incubated for 4 days on a continuously monitored blood culture system. The first report of a negative culture is issued within 24 hours of receipt of the specimen in the laboratory. 2. Positive culture results are reported as soon as they are detected. 3. The most important factor for detection of microbes in the setting of bloodstream infection is the volume of blood submitted for culture. Failure to collect an optimal blood volume can result in false negative blood cultures. 4. For pediatric patients, the recommended blood volume to collect follows a weight based strategy. See the electronic test catalog for collection instructions. 5. For positive blood cultures, a rapid molecular test may be performed for organism identification using the selena ePlex blood culture identification panel for gram positive (BCID-GP) and gram negative (BCID-GN) organisms. This nucleic acid amplification test detects microbial DNA in positive blood culture broth. This assay has been cleared by the [place] Food and Drug Administration and its performance characteristics have been verified by the [facility] Microbiology Laboratory. For questions about this culture, contact the Microbiology Laboratory at [phone]. Interpretive data was last revised on 23. us Naomi Downs MD LAB MICROBIOLOGY - GENER AL ORDERABLES Final Result Performing Organization Address City/[facility]/ZIP Co de Phone Number [facility] Department [place] [address] * POCT lactate (02/26/2024 10:05 PM QUALITY TECHNICIAN FIBERGLASS) [facility] Lactate POC i-STAT 1.0 0.7 - 2.2 mmol/L Blood 02/26/2024 10:0 5 PM QUALITY TECHNICIAN F[employer]ERGLASS 02/26/2024 10:05 PM QUALITY TECHNICIAN FIBERGLASS us Notinfile Unknown LAB POCT ORDERABLES - DEVICE F inal Result Performing Organization Address [facility] Co de Phone Number [facility] Department [place] [address] * XR Chest PA Lateral 2 Views (02/26/2024 10:02 PM QUALITY TECHNICIAN FIBERGLASS) Anatomical Region Laterality Modality Body, Chest N/A Computed Radiogr aphy 02/26/2024 10:2 9 PM QUALITY TECHNICIAN F[employer]ER[employer]ASS Impressions 02/27/2024 7:02 AM QUALITY TECHNICIAN FIBERGLASS FINDINGS/IMPRESSION: 2 views of the chest are provided for interpretation. Right internal jugular chest wall port catheter with tip at the superior cavoatrial junction. Right perihilar opacification appear mildly progressed when compared with multiple priors favored to represent enlarging right hilar soft tissue mass. Possible postobstructive underlying pneumonia related present. Mild bibasilar atelectasis is seen with no lobar consolidation and no pulmonary edema seen. No pleural effusion and no pneumothorax is is present. Cardiomediastinal contours are normal. Dictated by: Jama Urias M.D. The radiology attending physician has personally reviewed this study, and had reviewed and/or edited this written report and agrees with it. Electronically signed by: Chris Guardado M.D. Narrative 02/27/2024 7:02 AM QUALITY TECHNICIAN FIBERGLASS EXAMINATION: XR CHEST PA LATERAL 2 VIEWS HISTORY: 68-year-old male with presenting with fever with clinical concern for infection COMPARISON: Comparison radiograph from 12/22/2023. Procedure Note Chris Guardado MD - 02/27/2024 EXAMINATION: XR CHEST PA LATERAL 2 VIEWS HISTORY: 68-year-old male with presenting with fever with clinical concern for infection COMPARISON: Comparison radiograph from 12/22/2023. IMPRESSION: FINDINGS/IMPRESSION: 2 views of the chest are provided for interpretation. Right internal jugular chest wall port catheter with tip at the superior cavoatrial junction. Right perihilar opacification appear mildly progressed when compared with multiple priors favored to represent enlarging right hilar soft tissue mass. Possible postobstructive underlying pneumonia related present. Mild bibasilar atelectasis is seen with no lobar consolidation and no pulmonary edema seen. No pleural effusion and no pneumothorax is is present. Cardiomediastinal contours are normal. Dictated by: Jama Urias M.D. The radiology attending physician has personally reviewed this study, and had reviewed and/or edited this written report and agrees with it. Electronically signed by: Chris Guardado M.D. Johnny Garcia MD IMG XR PROCEDURES Final Result * eGFR (02/26/2024 9:53 PM QUALITY TECHNICIAN FIBERGLASS) eGFR 80 >=60 mL/min/1. 73 m2 Comment: Interpretive Data Reference Interval Normal >/= 90 mL/min/1.73m2 Mildly decreased* 60 - 89 mL/min/1.73m2 Mildly to moderately decreased 45 - 59 mL/min/1.73m2 Moderately to severely decreased 30 - 44 mL/min/1.73m2 Severely decreased 15 - 29 mL/min/1.73m2 Kidney Failure < 15 mL/min/1.73m2 *Relative to young adult level Estimated glomerular filtration rate is determined by the 2020 CKD-EPI equation recommended by the National Kidney Foundation (A Unifying Approach to GFR Estimation: Recommendations of the NKF-ASK Task Force on Reassessing the Inclusion of Race in Diagnosing Kidney Disease, JASN 2020). The CKD-EPI equation should not be used for patients with unstable renal function and has not been validated in children and those over 70. Current interpretive data was last reviewed 2020. Blood 02/26/2024 9:53 PM QUALITY TECHNICIAN FIBERGLASS 02/26/2024 10:07 PM QUALITY TECHNICIAN FIBERGLASS us Johnny Garcia MD LAB BLOOD ORDERABLES Fin al Result [facility] Department [place] [address] * (ABNORMAL) Differential, auto (02/26/2024 9:53 PM QUALITY TECHNICIAN FIBERGLASS) Neutrophil abs 7.6(H) 1.5 - 6.5 K/cumm Imm gran abs 0.0 0.0 - 0.1 K/cumm [facility] Lymphocyte abs 1.0 0.8 - 3.3 K/cumm [facility] Monocyte abs 0.7 0.2 - 0.8 K/cumm [facility] Eosinophil abs 0.0 0.0 - 0.5 K/cumm [facility] Basophil abs 0.0 0.0 - 0.1 K/cumm [facility] Neutrophil pct 82.0 % [facility] Comment: Interpretive Data Percent cell count reference ranges are not reported, since discordance with absolute values may lead to misinterpretation of CBC data. Current Interpretive Data was last revised on 2017. Imm gran pct 0.4 % [facility] Comment: Interpretive Data Percent cell count reference ranges are not reported, since discordance with absolute values may lead to misinterpretation of CBC data. Current Interpretive Data was last revised on 2017. Lymphocyte pct 10.2 % [facility] Comment: Interpretive Data Percent cell count reference ranges are not reported, since discordance with absolute values may lead to misinterpretation of CBC data. Current Interpretive Data was last revised on 2017. Monocyte pct 7.1 % [facility] Comment: Interpretive Data Percent cell count reference ranges are not reported, since discordance with absolute values may lead to misinterpretation of CBC data. Current Interpretive Data was last revised on 2017. Eosinophil pct 0.1 % [facility] Comment: Interpretive Data Percent cell count reference ranges are not reported, since discordance with absolute values may lead to misinterpretation of CBC data. Current Interpretive Data was last revised on 2017. Basophil pct 0.2 % [facility] Comment: Interpretive Data Percent cell count reference ranges are not reported, since discordance with absolute values may lead to misinterpretation of CBC data. Current Interpretive Data was last revised on 2017. Blood 02/26/2024 9:53 PM QUALITY TECHNICIAN FIBERGLASS 02/26/2024 10:07 PM QUALITY TECHNICIAN FIBERGLASS us Johnny Garcia MD LAB BLOOD ORDERABLES Fin al Result [facility] Department [place] [address] * (ABNORMAL) CBC with auto differential (02/26/2024 9:53 PM QUALITY TECHNICIAN FIBERGLASS) Pathologist [facility] WBC 9.3 3.8 - 9.9 K/cumm Hgb 11.2(L) 13.0 - 17.5 g/dL [facility] Hct 34.6(L) 38.9 - 50.3 % [facility] Plt 285 150 - 400 K/cumm [facility] MPV 10.0 9.1 - 12.3 fL [facility] RBC 4.20(L) 4.30 - 5.80 M/cumm [facility] MCV 82.4 81.3 - 96.4 fL [facility] MCH 26.7(L) 27.1 - 33.3 pg [facility] MCHC 32.4 32.3 - 35.7 g/dL [facility] RDW CV 18.1(H) 11.1 - 14.9 % [facility] RDW SD 55.0(H) 35.7 - 48.1 fL [facility] NRBC abs 0.00 0.00 - 0.01 K/cumm [facility] Blood 02/26/2024 9:53 PM QUALITY TECHNICIAN F[employer]ERGLASS 02/26/2024 10:07 PM QUALITY TECHNICIAN FIBERGLASS us Johnny Garcia MD LAB BLOOD ORDERABLES Fin al Result [facility] Department [place] [address] * (ABNORMAL) Comprehensive metabolic panel (02/26/2024 9:53 PM QUALITY TECHNICIAN FIBERGLASS) Sodium 134(L) 135 - 145 mmol/L Potassium, pl 4.5 3.3 - 4.9 mmol/L [facility] Chloride 103 97 - 110 mmol/L [facility] CO2 20(L) 22 - 32 mmol/L [facility] Anion gap 11 2 - 15 mmol/L [facility] BUN 24 6 - 25 mg/dL [facility] Creatinine 1.03 0.80 - 1.30 mg/dL [facility] Glucose 157 70 - 199 mg/dL [facility] Comment: Interpretive Data Fasting glucose >/= 126 mg/dl is diagnostic for diabetes. Fasting is defined as no caloric intake for at least 8 hours. Fasting glucose between 100 mg/dl to 125 mg/dl is diagnostic of prediabetes. In a patient with classic symptoms of hyperglycemia or hyperglycemic crisis, a random glucose >/= 200 mg/dl is diagnostic for diabetes. In the absence of unequivocal hyperglycemia, results should be confirmed by repeat testing. The classification and Diagnosis of Diabetes Diabetes Care 2021; 46: S19-S40. Current interpretive data was last revised 2022. Calcium 9.0 8.5 - 10.3 mg/dL [facility] Bilirubin, total 0.4 0.1 - 1.2 mg/dL [facility] Protein, pl 7.0 6.5 - 8.5 g/dL [facility] Albumin 3.8 3.5 - 5.0 g/dL [facility] Alk phos 148(H) 40 - 130 Units/L [facility] ALT 41 7 - 55 Units/L [facility] AST 38 10 - 50 Units/L [facility] Blood 02/26/2024 9:53 PM QUALITY TECHNICIAN FIBERGLASS 02/26/2024 10:07 PM QUALITY TECHNICIAN FIBERGLASS Johnny Garcia MD LAB BLOOD ORDERABLES Fin al Result [facility] Department [place] [address] * Respiratory pathogen panel Nasopharyngeal Nares, left (02/07/2024 6:24 PM QUALITY TECHNICIAN FIBERGLASS) Pathologist [facility] Influenza A RNA Not Detected Not Detected Influenza B RNA Not Detected Not Detected [facility] RSV RNA Not Detected Not Detected [facility] COVID-19 RNA Not Detected Not Detected [facility] Coronavirus 229E RNA Not Detected Not Detected [facility] Coronavirus HKU1 RNA Not Detected Not Detected [facility] Coronavirus NL63 RNA Not Detected Not Detected [facility] Coronavirus OC43 RNA Not Detected Not Detected [facility] Adenovirus DNA Not Detected Not Detected [facility] Metapneumovirus RNA Not Detected Not Detected [facility] Rhinovirus/Enterov irus RNA Not Detected Not Detected [facility] Parainfluenza 1 RNA Not Detected Not Detected [facility] Parainfluenza 2 RNA Not Detected Not Detected [facility] Parainfluenza 3 RNA Not Detected Not Detected [facility] Parainfluenza 4 RNA Not Detected Not Detected [facility] B. pertussis DNA Not Detected Not Detected [facility] B. parapertussis DNA Not Detected Not Detected [facility] C. pneumoniae DNA Not Detected Not Detected [facility] M. pneumoniae DNA Not Detected Not Detected [facility] Nasopharyngeal (Nares, left) 02/07/2024 6:24 PM QUALITY TECHNICIAN FIBERGLASS 02/07/2024 6:53 PM QUALITY TECHNICIAN FIBERGLASS Narrative [facility] - 02/07/2024 8:27 PM QUALITY TECHNICIAN FIBERGLASS Is the Patient experiencing symptoms consistent with COVID?->Yes Surveillance testing for transplant patient?->No Interpretive Data The [employer] FilmArray Respiratory Panel (RP2.1) assay is a multiplexed real-time PCR based nucleic acid test capable of simultaneous qualitative detection and identification of multiple respiratory viral and bacterial nucleic acids, including SARS Coronavirus 2 (the causative agent of COVID-19). The following bacteria, viruses and virus subtypes can be identified using the FilmArray RP2.1 assay: Bordetella pertussis, Bordetella parapertussis, Chlamydia pneumoniae, Mycoplasma pneumoniae, Adenovirus, SARS Coronavirus 2, seasonal coronaviruses (Coronavirus HKU1, Coronavirus NL63, Coronavirus 229E, and Coronavirus OC43), Influenza A, Influenza A subtype H1, Influenza A subtype H3, Influenza A subtype 2009 H1, Influenza B, Metapneumovirus, Parainfluenza 1, Parainfluenza 2, Parainfluenza 3, Parainfluenza 4, RSV, Rhinovirus/Enterovirus. Due to the genetic similarity between human Rhinovirus and Enterovirus, the FilmArray RP2.1 assay cannot reliably differentiate them. Coronavirus OC43 may cross-react with some isolates of Coronavirus HKU1. A dual positive result may be due to cross-reactivity or may indicate a co- infection. The detection and identification of specific viral and bacterial nucleic acids from individuals exhibiting signs and symptoms of a respiratory infection aids in the diagnosis of respiratory infection if used in conjunction with other clinical and epidemiological information. The results of this test should not be used as the sole basis for diagnosis, treatment, or other management decisions. Negative results in the setting of a respiratory illness may be due to infection with pathogens that are not detected by this test. Positive results do not rule out infection/co-infection with other organisms. The agent(s) detected by the FilmArray RP2.1 may not be the definite cause of disease. Additional testing (lab, imaging, etc.) may be necessary when evaluating a patient with possible respiratory tract infection. The FilmArray RP2.1 assay has FDA clearance for testing of COMMUNICATION LECTURER swabs. The performance of additional specimen types has been assessed by the performing laboratory. The performance characteristics of this assay have been determined by [facility] Molecular Infectious Disease Laboratory. Current interpretive data was last revised on 21. us Yakov Yousif MD PhD LAB MICROBIOLOGY - [facility] ORDERABLES Final Result [facility] [place] [address] * eGFR (02/07/2024 12:15 PM QUALITY TECHNICIAN FIBERGLASS) eGFR >90 >=60 mL/min/1. 73 m2 Comment: Interpretive Data Reference Interval Normal >/= 90 mL/min/1.73m2 Mildly decreased* 60 - 89 mL/min/1.73m2 Mildly to moderately decreased 45 - 59 mL/min/1.73m2 Moderately to severely decreased 30 - 44 mL/min/1.73m2 Severely decreased 15 - 29 mL/min/1.73m2 Kidney Failure < 15 mL/min/1.73m2 *Relative to young adult level Estimated glomerular filtration rate is determined by the 2020 CKD-EPI equation recommended by the National Kidney Foundation (A Unifying Approach to GFR Estimation: Recommendations of the NKF-ASK Task Force on Reassessing the Inclusion of Race in Diagnosing Kidney Disease, JASN 2020). The CKD-EPI equation should not be used for patients with unstable renal function and has not been validated in children and those over 70. Current interpretive data was last reviewed 2020. Blood 02/07/2024 12:1 5 PM QUALITY TECHNICIAN FIBERGLASS 02/07/2024 12:21 PM QUALITY TECHNICIAN FIBERGLASS us Yakov Yousif MD PhD LAB BLOOD ORDERABLES Fin al Result [facility] [place] [address] * (ABNORMAL) Differential, auto (02/07/2024 12:15 PM QUALITY TECHNICIAN FIBERGLASS) [facility] Neutrophil abs 4.5 1.5 - 6.5 K/cumm Comment:Testing performed by : [facility], [address] [place] [phone] Lymphocyte abs 0.7(L) 0.8 - 3.3 K/cumm [facility] Comment:Testing performed by : [facility], [address] [place] [phone] Monocyte abs 0.8 0.2 - 0.8 K/cumm [facility] Comment:Testing performed by : [facility], [address] [place] [phone] Eosinophil abs 0.1 0.0 - 0.5 K/cumm [facility] Comment:Testing performed by : [facility], [address] [place] [phone] Basophil abs 0.0 0.0 - 0.1 K/cumm [facility] Comment:Testing performed by : [facility], [address] [place], [place] [id number] Neutrophil pct 74.2 % [facility] Comment: Interpretive Data Percent cell count reference ranges are not reported, since discordance with absolute values may lead to misinterpretation of CBC data. Current Interpretive Data was last revised on 2017. Testing performed by: [facility], [address] [place] [address] Lymphocyte pct 11.8 % [facility] Comment: Interpretive Data Percent cell count reference ranges are not reported, since discordance with absolute values may lead to misinterpretation of CBC data. Current Interpretive Data was last revised on 2017. Testing performed by: [facility], [address] [place] [address] Monocyte pct 12.9 % [facility] Comment: Interpretive Data Percent cell count reference ranges are not reported, since discordance with absolute values may lead to misinterpretation of CBC data. Current Interpretive Data was last revised on 2017. Testing performed by: [facility], [address] [place] [address] Eosinophil pct 1.0 % [facility] Comment: Interpretive Data Percent cell count reference ranges are not reported, since discordance with absolute values may lead to misinterpretation of CBC data. Current Interpretive Data was last revised on 2017. Testing performed by: [facility], [address] [place], [place] [id number] Basophil pct 0.1 % [facility] Comment: Interpretive Data Percent cell count reference ranges are not reported, since discordance with absolute values may lead to misinterpretation of CBC data. Current Interpretive Data was last revised on 2017. Testing performed by: [facility], [address] [place] [address] Blood 02/07/2024 12:1 5 PM QUALITY TECHNICIAN F[employer]ERGLASS 02/07/2024 12:16 PM QUALITY TECHNICIAN FIBERGLASS us Yakov Yousif MD PhD LAB BLOOD ORDERABLES Fin al Result [facility] [place] [address] * (ABNORMAL) CBC with auto differential (02/07/2024 12:15 PM QUALITY TECHNICIAN FIBERGLASS) WBC 6.1 3.8 - 9.9 K/cumm Comment:Testing performed by : [facility], [address] [place] [address] Hgb 10.6(L) 13.0 - 17.5 g/dL [facility] Comment:Testing performed by : [facility], [address] [place] [address] Hct 33.2(L) 38.9 - 50.3 % [facility] Comment:Testing performed by : [facility], [address] [place] [address] Plt 267 150 - 400 K/cumm [facility] Comment:Testing performed by : [facility], [address] [place] [address] MPV 7.7 6.8 - 10.4 fL [facility] Comment:Testing performed by : [facility], [address] [place] [address] RBC 3.99(L) 4.30 - 5.80 M/cumm [facility] Comment:Testing performed by : [facility], [address] [place] [address] MCV 83.2 81.3 - 96.4 fL CERNER BJ Comment:Testing performed by : [facility], [address] [place] [address] MCH 26.5(L) 27.1 - 33.3 pg CERNER BJ Comment:Testing performed by : [facility], [address] [place] [address] MCHC 31.8(L) 32.3 - 35.7 g/dL [facility] Comment:Testing performed by : [facility], [address] [place], [place] [id number] RDW CV 19.9(H) 11.1 - 14.9 % [facility] Comment:Testing performed by : [facility], [address] [place], [place] [id number] NRBC abs 0.00 0.00 - 0.01 K/cumm [facility] Comment:Testing performed by : [facility], [address] [place], [place] [id number] Blood 02/07/2024 12:1 5 PM QUALITY TECHNICIAN [employer]ER[employer] 02/07/2024 12:16 PM QUALITY TECHNICIAN [employer]ER[employer] Yakov Yousif MD PhD LAB BLOOD ORDERABLES Fin al Result Performing Organization Address [facility] de Phone Number [facility] Department [place] [address] * Phosphorus (02/07/2024 12:15 PM QUALITY TECHNICIAN FIBERGLASS) [facility] Phosphorus, pl 2.4 2.3 - 4.5 mg/dL Blood 02/07/2024 12:1 5 PM QUALITY TECHNICIAN [employer]ER[employer] 02/07/2024 12:21 PM QUALITY TECHNICIAN [employer] Yakov Yousif MD PhD LAB BLOOD ORDERABLES Fin al Result Performing Organization Address [facility] de Phone Number [facility] Department [place] [address] * (ABNORMAL) Comprehensive metabolic panel (02/07/2024 12:15 PM QUALITY TECHNICIAN FIBERGLASS) [facility] Sodium 135 135 - 145 mmol/L Potassium, pl 4.7 3.3 - 4.9 mmol/L [facility] Comment:Hemolyzed; Potassium value may be falsely elevated by as much as 0.6-1.0 mmol/L. Suggest redraw and reanalysis. Chloride 104 97 - 110 mmol/L [facility] CO2 26 22 - 32 mmol/L [facility] Anion gap 5 2 - 15 mmol/L [facility] BUN 19 6 - 25 mg/dL [facility] Creatinine 0.86 0.80 - 1.30 mg/dL [facility] Glucose 107 70 - 199 mg/dL [facility] Comment: Interpretive Data Fasting glucose >/= 126 mg/dl is diagnostic for diabetes. Fasting is defined as no caloric intake for at least 8 hours. Fasting glucose between 100 mg/dl to 125 mg/dl is diagnostic of prediabetes. In a patient with classic symptoms of hyperglycemia or hyperglycemic crisis, a random glucose >/= 200 mg/dl is diagnostic for diabetes. In the absence of unequivocal hyperglycemia, results should be confirmed by repeat testing. The classification and Diagnosis of Diabetes Diabetes Care 2021; 46: S19-S40. Current interpretive data was last revised 2022. Calcium 8.7 8.5 - 10.3 mg/dL [facility] Bilirubin, total 0.4 0.1 - 1.2 mg/dL [facility] Protein, pl 6.6 6.5 - 8.5 g/dL [facility] Albumin 3.5 3.5 - 5.0 g/dL [facility] Alk phos 143(H) 40 - 130 Units/L [facility] ALT 63(H) 7 - 55 Units/L [facility] AST 68(H) 10 - 50 Units/L [facility] Comment:Hemolyzed; result ma y be falsely elevated Blood 02/07/2024 12:1 5 PM QUALITY TECHNICIAN [employer]ER[employer]ASS 02/07/2024 12:21 PM QUALITY TECHNICIAN F[employer]ERGLASS us Yakov Yousif MD PhD LAB BLOOD ORDERABLES Fin al Result [facility] [place] [address] * CT chest abdomen pelvis with contrast (02/07/2024 11:42 AM QUALITY TECHNICIAN FIBERGLASS) Anatomical Region Laterality Modality Body N/A Computed Tomogra phy 02/07/2024 12:2 8 PM QUALITY TECHNICIAN [employer]ER[employer] Impressions 02/07/2024 12:28 PM QUALITY TECHNICIAN [employer]ER[employer]ASS 1. Enlarging right hilar mass/lymph node conglomerate with peripheral areas of increasing groundglass nodularity, likely postobstructive pneumonitis. Additional areas of nodular interlobular septal line thickening which may represent pulmonary edema versus lymphogenic carcinomatosis. More focal area of medial consolidation could represent areas of worsening asymmetric pulmonary edema versus a venous infarct. 2. Mild improvement in bibasilar predominant nodularity and groundglass opacities most compatible with organizing pneumonia. Remaining more discrete bilateral pulmonary nodules are stable and remain indeterminate. 3. Unchanged bilateral adrenal metastases and osseous metastatic disease. Electronically signed by: Gareth Cleaning M.D. Narrative 02/07/2024 12:28 PM QUALITY TECHNICIAN F[employer]ERGLASS EXAMINATION: CT chest, abdomen, and pelvis with intravenous contrast. HISTORY: 68-year-old man with metastatic distal esophageal adenocarcinoma. Assess pneumonitis. TECHNIQUE: Computed tomographic images of the chest, abdomen and pelvis were obtained after administration of 70 mL of Optiray 350 intravenous contrast per standard protocol. COMPARISON:01/03/2024, 11/12/2023. FINDINGS: CHEST: Right mediastinal/right hilar conglomerative soft tissue mass has increased in size measuring 5.3 x 5.9 cm, previously 4.3 x 4.7 cm. Soft tissue attenuation of the right upper lobe bronchus, pulmonary arteries, and pulmonary veins, as well as surrounding the right mainstem bronchus to the level of the right aspect ibeth. Unchanged soft tissue thickening within the right aspect of the mediastinum. No supraclavicular or axillary lymphadenopathy. Heart size is normal without pericardial effusion. Three-vessel coronary artery calcifications are present. Small hiatal hernia with distal esophageal wall thickening which may represent the known primary malignancy. Increasing nodularity within the aerated portions of the right upper lobe with ill-defined groundglass nodularity and more nodular areas of consolidation. More confluent consolidation is seen more medially in the right upper lobe and somewhat nonenhancing (series 2, image 46). Smooth and somewhat nodular right upper lobe interlobular septal line thickening is present. Additional superimposed solid pulmonary nodules are unchanged including a pharmacy sales representative 0.9 cm right upper lobe pulmonary nodule (series 3, image 44). No improvement in basilar predominant nodularity and peribronchial vascular groundglass opacities are not substantially changed with some areas improvement seen in the superior segment right lower lobe. Other more focal solid pulmonary nodules are also stable including a 0.3 cm left upper lobe pulmonary nodule (series 3, image 27). No pneumothorax or pleural effusion. ABDOMEN/PELVIS: Diffuse hepatic steatosis. No suspicious focal liver lesions. Cholelithiasis without evidence of acute cholecystitis. No bile duct dilatation. Pancreas and spleen are normal. Stable bilateral adrenal masses measuring up to 2.8 x 3.7 cm on the right and 3.2 x 3.8 cm on the left. Kidneys enhance symmetrically without hydronephrosis. Punctate nonobstructive bilateral nephrolithiasis. Bladder is decompressed. Normal size prostate. Fat-containing left inguinal hernia. No free intraperitoneal fluid or gas. Colonic diverticulosis without evidence of acute diverticulitis. Appendectomy. Normal caliber bowel without intestinal obstruction. Periampullary duodenal diverticulum. Extensive vascular calcifications. No abdominal, retroperitoneal, or pelvic lymphadenopathy. Unchanged sclerotic osseous metastatic disease including the right iliac crest and L5 vertebral body. Procedure Note Gareth Cleaning MD - 02/07/2024 EXAMINATION: CT chest, abdomen, and pelvis with intravenous contrast. HISTORY: 68-year-old man with metastatic distal esophageal adenocarcinoma. Assess pneumonitis. TECHNIQUE: Computed tomographic images of the chest, abdomen and pelvis were obtained after administration of 70 mL of Optiray 350 intravenous contrast per standard protocol. COMPARISON:01/03/2024, 11/12/2023. FINDINGS: CHEST: Right mediastinal/right hilar conglomerative soft tissue mass has increased in size measuring 5.3 x 5.9 cm, previously 4.3 x 4.7 cm. Soft tissue attenuation of the right upper lobe bronchus, pulmonary arteries, and pulmonary veins, as well as surrounding the right mainstem bronchus to the level of the right aspect ibeth. Unchanged soft tissue thickening within the right aspect of the mediastinum. No supraclavicular or axillary lymphadenopathy. Heart size is normal without pericardial effusion. Three-vessel coronary artery calcifications are present. Small hiatal hernia with distal esophageal wall thickening which may represent the known primary malignancy. Increasing nodularity within the aerated portions of the right upper lobe with ill-defined groundglass nodularity and more nodular areas of consolidation. More confluent consolidation is seen more medially in the right upper lobe and somewhat nonenhancing (series 2, image 46). Smooth and somewhat nodular right upper lobe interlobular septal line thickening is present. Additional superimposed solid pulmonary nodules are unchanged including a pharmacy sales representative 0.9 cm right upper lobe pulmonary nodule (series 3, image 44). No improvement in basilar predominant nodularity and peribronchial vascular groundglass opacities are not substantially changed with some areas improvement seen in the superior segment right lower lobe. Other more focal solid pulmonary nodules are also stable including a 0.3 cm left upper lobe pulmonary nodule (series 3, image 27). No pneumothorax or pleural effusion. ABDOMEN/PELVIS: Diffuse hepatic steatosis. No suspicious focal liver lesions. Cholelithiasis without evidence of acute cholecystitis. No bile duct dilatation. Pancreas and spleen are normal. Stable bilateral adrenal masses measuring up to 2.8 x 3.7 cm on the right and 3.2 x 3.8 cm on the left. Kidneys enhance symmetrically without hydronephrosis. Punctate nonobstructive bilateral nephrolithiasis. Bladder is decompressed. Normal size prostate. Fat-containing left inguinal hernia. No free intraperitoneal fluid or gas. Colonic diverticulosis without evidence of acute diverticulitis. Appendectomy. Normal caliber bowel without intestinal obstruction. Periampullary duodenal diverticulum. Extensive vascular calcifications. No abdominal, retroperitoneal, or pelvic lymphadenopathy. Unchanged sclerotic osseous metastatic disease including the right iliac crest and L5 vertebral body. IMPRESSION: 1. Enlarging right hilar mass/lymph node conglomerate with peripheral areas of increasing groundglass nodularity, likely postobstructive pneumonitis. Additional areas of nodular interlobular septal line thickening which may represent pulmonary edema versus lymphogenic carcinomatosis. More focal area of medial consolidation could represent areas of worsening asymmetric pulmonary edema versus a venous infarct. 2. Mild improvement in bibasilar predominant nodularity and groundglass opacities most compatible with organizing pneumonia. Remaining more discrete bilateral pulmonary nodules are stable and remain indeterminate. 3. Unchanged bilateral adrenal metastases and osseous metastatic disease. Electronically signed by: Gareth Cleaning M.D. Yakov Yousif MD PhD IMG CT PROCEDURES Final Result from Last 3 Months Insurance [place] [address] [place] [address] [employer] Advance Directives For more information, please contact: [phone] Documents on File Type Date Recorded Patient Core Checker Expl anation ADVANCE DIRECTIVE 05/29/2022 4:23 PM Homes , Nabil AD and DPOA * Full Code (Latest Code Status on File) Date Activated Date Inactivated Comments 03/29/2024 1:10 AM 03/31/2024 4:40 PM * Full Code Date Activated Date Inactivated Comments 02/27/2024 8:07 AM 03/01/2024 11:44 PM * Full Code Date Activated Date Inactivated Comments 01/29/2023 7:37 AM 01/29/2023 12:51 PM * Full Code Date Activated Date Inactivated Comments 09/22/2022 12:09 PM 09/23/2022 5:28 AM * Full Code Date Activated Date Inactivated Comments 09/01/2022 11:38 AM 09/06/2022 5:42 PM Care Teams R Programmer Relationship Specialty Start Date End Date Chris Rondon MD [address] [place] [address] [address] PCP - General Family Medicine 12/08/23 Carlos Paz MD [address] [place] [id number] Surgeon General Surgery 03/22/19 David Rehman MD [address] [address] Surgeon Gastroenterology 05/23/19 Mae Recinos MD [address] [address] Radiation Oncologist Radiation Oncology 12/30/20 Areli Cordon MD [address] [place] [id number] Consulting Physician Pulmonary Disease 01/23/22 Kevin Flynn MD [address] [place] [address] [phone] Consulting Physician Medical Oncology 05/14/22 Yakov Yousif MD PhD [address] [place] [id number] Medical Oncologist/Road Sign Installer Medical Oncology 02/23/23
--- OUTSIDE RECORDS SUMMARY | 2024-05-01 08:32 | XMS_ITS | Clinical Summary ---
Author Organization [facility] Address [address] [place] [address] Care Team Providers Care Bill Collector Name Role Phone Carlos Paz MD Unavailable [phone] David Rehman MD Unavailable [phone] Mae Recinos MD Unavailable [phone] Areli Cordon MD Unavailable Kevin Flynn MD Unavailable [phone] Yakov Yousif MD PhD Unavailable [phone] Chris Rondon MD Primary Care Provider [phone] Allergies Active Allergy Reactions Criticality Noted Date [...] (two) times a day as needed 01/05/20 23 Active cholecalciferol (VITAMIN D-3) 2000 unit tablet Take 1 tablet (2,000 Units total) by mouth daily 30 tablet 07/08/19 24 Active Additional Information Patient not taking.Reported on 04/10/2024 pregabalin (LYRICA) 75 mg capsule Take 1 capsule by mouth twice daily 60 capsule 5 09/08/19 24 Active enoxaparin (LOVENOX) 150 mg/mL injectionIndica tions:Malignant neoplasm of lower third of esophagus (HCC),Acute pulmonary embolism, unspecified pulmonary embolism type, unspecified whether acute cor pulmonale present (HCC) Inject 1 mL (150 mg total) under the skin daily 30 mL 6 12/14/19 24 Active alteplase (CATHFLO ACTIVASE) 2 mg injectionIndica tions:Malignant neoplasm of lower third of esophagus (HCC) Infuse 2 mL (2 mg total) into a venous catheter as needed (No blood return to port) 1 each 02/07/20 Active Additional Information Patient not taking.Reported on 04/10/2024 magnesium oxide 400 mg magnesium capsule Take by mouth Active albuterol HFA (PROVENTIL HFA,VENTOLIN HFA,PROAIR HFA) 90 mcg/actuation inhaler Inhale 2 puffs every 4 (four) hours as needed for wheezing or shortness of breath 1 each 03/31/19 25 Active benzonatate (TESSALON) 100 mg capsuleIndicati ons:Cough [...] original. BMT Inpatient Care Coordination [facility] Treatment Plan SURPASS Study Auto Cytotoxic T Lymphocyet cell [id number] Reason for Admission SURPASS 09/02 Transplant/IEC Planning BMT/IEC Plan HLA typing/IDMs [] Insurance Approval [] Discharge Planning Anticipated Discharge Date 09/06 Patient Education Completed [x] CAR-T dc ed to pt Issue to be Resolved Before Discharge Discharge Disposition Requests Sent to Case Management, Pharmacy PA Team, or Medical Assistants Post-Discharge Follow-Up Living Situation/Distance from [facility] Caregiver Lab/Transfusion Frequency Venous Access & Care tunneled central venous catheter Local Oncologist Contact Phone: Fax: Post-Discharge Office Visit (H30) ZXC 09/08 Miscellaneous Notes: Problem Noted Date Diagnosed Date Influenza A 03/29/2024 Assessment & Plan (03/29/2024 4:07 AM EMAIL PRODUCER): RVP positive for influenza A on admission. - start tamiflu - supportive care Diarrhea 03/29/2024 Assessment & Plan (03/30/2024 9:59 AM EMAIL PRODUCER): Improving Patient endorsing a few days of diarrhea. - check c diff and stool culture-negative - PRN imodium Severe protein-calorie malnutrition 03/29/2024 Fever, unspecified fever cause 02/27/2024 Assessment & Plan (02/28/2024 3:31 PM EMAIL PRODUCER): Secondary to post-obstructive PNA (see plan above) Postobstructive pneumonia 02/27/2024 Assessment & Plan (03/01/2024 1:59 PM EMAIL PRODUCER): - s/p recent course of Augmentin without [...] after eating, no aspiration per him though. 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 Failed xarelto and is currently on home therapeutic lovenox. - continue home lovenox Assessment & Plan (02/28/2024 3:32 PM EMAIL PRODUCER): PE identified on CT 08/27/2021. 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 Previously on Xarelto. Due to failing DOAC and luminal GI cancer, he has been on therapeutic enoxaparin 1.5 mg/kg daily. - continue therapeutic lovenox Pneumonitis 02/27/2024 Assessment & Plan (02/28/2024 6:07 PM EMAIL PRODUCER): Patient had recently diagnosed drug induced pneumonitis (on trial with MD Zimmerman (Phase 1, Part A1 dose escalation of [id number] (prodrug of interferon-alpha) monotherapy)) which requiring ICU [...] point - O2A prior to discharge - DRILL RUNNER HELPER eval/FEES We will sign off. See separate summary of treatment note. Assessment & Plan (02/29/2024 4:13 PM EMAIL PRODUCER): Grade 4. 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 Required ICU admission with oxygen and pressers. [...] 09/01/2022 Assessment & Plan (03/29/2024 4:07 AM EMAIL PRODUCER): Follows with Dr. Yousif. Dx 2021. Has had disease progression on multiple lines of therapy. S/p T-cell infusion on Neuropure clinical trial then started on pembro with progression. Most recently, was on trial at [facility] with [id number] (prodrug of interferon-alpha) monotherapy with stable disease. However, subsequently developed pneumonitis requiring ICU admission and pressors. Since then, has received RT to RUL obstructing mass completed on 03/21/24. - med onc c/s Assessment & Plan (02/28/2024 3:31 PM EMAIL PRODUCER): He was diagnosed in February 2019, received concurrent chemoradiation, then received 1L FOLFOX/ 5FU maintenance without progression for oligometastatic disease (oxaliplatin stopped due to neuropathy), then 2L as ramucirumab/ paclitaxel with progression, then 3L as pembrolizumab from December 2021 until June 2022 with progression. He was treated on Neuropure [facility] [id number] (autologous CAR T cells), received T-cell infusion [...] 05/03/23 then stopped Lonsurf and enrolled on [id number] (phase 1 of HPK1 Inhibitor [id number] anti-PD-1 tislelizumab) at [facility], cycle 1 day 1 on 06/04/2023. CT CAP 07/13/2023 showed stable disease. He completed [address] CAP 10/07/2023 showed disease progression. 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 -discussed in SOB Assessment & Plan (02/28/2024 3:29 PM EMAIL PRODUCER): - hx of tobacco use for 40 years, quit. 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 01/16/2022 Anemia 10/23/2021 Assessment & Plan (03/30/2024 10:06 AM EMAIL PRODUCER): Mixed picture of anemia of chronic disease and iron deficiency anemia -CTM Personal history of radiation therapy 12/30/2020 Malignant neoplasm metastatic to bone 04/24/2019 Persons encountering health services in other specified circumstances 03/22/2019 Malignant neoplasm of lower third of esophagus 0 03/17/2019 Encounters Date Type Department Care Team Description 04/10/2024 12:30 PM EMAIL PRODUCER - 04/10/2024 11:59 PM EMAIL PRODUCER Hospital Encounter [facility] Respiratory Therapy [address] [place] [address] Simple chronic bronchitis (HCC) Discharge Disposition: Discharge to home or self care 04/10/2024 12:00 PM EMAIL PRODUCER Office Visit [facility] Medical [facility] Pulmonary [place] [address] [place] [address] [address] [place] [address] Areli Cordon MD Simple chronic bronchitis (HCC) (Primary Dx); Pneumonitis; Gastroesophageal reflux disease without esophagitis; Chronic diastolic congestive heart failure (HCC); Chronic respiratory failure with hypoxia (HCC) 04/10/2024 Orders Only [facility] Pulmonary [address] [place] [address] Areli Cordon MD Chronic obstructive pulmonary disease, unspecified COPD type (HCC) (Primary Dx) 04/03/2024 1:45 PM EMAIL PRODUCER Infusion [facility] - Infusion [address] [facility] Floor 5 [place] [address] Malignant neoplasm metastatic to bone (HCC) (Primary Dx); Malignant neoplasm of lower third of esophagus (HCC) 04/03/2024 12:45 PM EMAIL PRODUCER Office Visit [facility] Oncology [address] [facility] Floor [address] [place] [address] Yakov Yousif MD PhD Malignant neoplasm of lower third of esophagus (HCC); Malignant neoplasm metastatic to bone (HCC) 04/03/2024 11:45 AM EMAIL PRODUCER Clinical Support [facility] - Lab Collection [address] [facility] Floor [address] [place] [address] Malignant neoplasm of lower third of esophagus (HCC); Malignant neoplasm metastatic to bone (HCC) 03/28/2024 11:10 PM EMAIL PRODUCER - 03/31/2024 12:40 PM EMAIL PRODUCER Hospital Encounter [facility] [address] [place] [address] Yakov Yousif MD PhD Acute cough (Primary Dx) Discharge Disposition: Discharge to home or self care 03/28/2024 8:59 PM EMAIL PRODUCER - 03/28/2024 11:59 PM EMAIL PRODUCER Hospital Encounter [facility] [address] [place] [address] Discharge Disposition: Discharge to home or self care 03/28/2024 Telephone [facility] Oncology [address] [facility] [place] [address] [place] [address] Mariela San RN 03/27/2024 Telephone [facility] Radiation Oncology [address] [place] [address] [place] [address] Matilde Flor, RN Report Symptoms 03/21/2024 10:59 AM EMAIL PRODUCER - 03/21/2024 11:59 PM EMAIL PRODUCER Hospital Encounter [facility] Radiation Oncology [address] [place] [address] [place] [address] Walker Souza MD Discharge Disposition: Discharge to home or self care 03/21/2024 Completion of Therapy [facility] Radiation Oncology [address] [place] [address] [place] [address] Walker Souza MD 03/21/2024 OTV [facility] Radiation Oncology [address] [place] [address] [place] [address] Walker Souza MD 03/21/2024 Orders Only RAD ONC TREATMENTS Miscellaneous, Not In File 03/20/2024 10:18 AM EMAIL PRODUCER - 03/20/2024 11:59 PM EMAIL PRODUCER Hospital Encounter [facility] Radiation Oncology [address] [place] [address] Walker Souza MD Discharge Disposition: Discharge to home or self care 03/20/2024 Orders Only RAD ONC TREATMENTS Miscellaneous, Not In File 03/17/2024 10:58 AM EMAIL PRODUCER - 03/17/2024 11:59 PM EMAIL PRODUCER Hospital Encounter [facility] Radiation Oncology [address] [place] [address] Walker Souza MD Discharge Disposition: Discharge to home or self care 03/17/2024 Orders Only RAD ONC TREATMENTS Miscellaneous, Not In File 03/16/2024 10:37 AM EMAIL PRODUCER - 03/16/2024 11:59 PM EMAIL PRODUCER Hospital Encounter [facility] Radiation Oncology [address] [place] [address] Walker Souza MD Discharge Disposition: Discharge to home or self care 03/16/2024 Orders Only RAD ONC TREATMENTS Miscellaneous, Not In File 03/15/2024 1:29 PM EMAIL PRODUCER - 03/15/2024 11:59 PM EMAIL PRODUCER Hospital Encounter [facility] Radiation Oncology [address] [place] [address] Walker Souza MD Discharge Disposition: Discharge to home or self care 03/15/2024 Orders Only RAD ONC TREATMENTS Miscellaneous, Not In File 03/10/2024 7:45 PM EMAIL PRODUCER - 03/10/2024 11:59 PM EMAIL PRODUCER Hospital Encounter [facility] Radiation Oncology [address] [place] [address] Walker Souza MD Discharge Disposition: Discharge to home or self care 03/07/2024 10:00 AM EMAIL PRODUCER - 03/07/2024 11:59 PM EMAIL PRODUCER Hospital Encounter [facility] Radiation Oncology [address] [facility] [place] [address] Walker Souza MD Discharge Disposition: Discharge to home or self care 03/07/2024 9:30 AM EMAIL PRODUCER Clinical Support [facility] Radiation Oncology [address] [place] [address] 03/06/2024 1:30 PM EMAIL PRODUCER Infusion [facility] - Infusion [address] [facility] Floor [address] [place] [address] Malignant neoplasm metastatic to bone (HCC) (Primary Dx); Malignant neoplasm of lower third of esophagus (HCC) 03/06/2024 12:45 PM EMAIL PRODUCER Office Visit [facility] Oncology [address] [facility] Floor [address] [place] [address] Yakov Yousif MD PhD Malignant neoplasm of lower third of esophagus (HCC); Malignant neoplasm metastatic to bone (HCC) 03/06/2024 11:45 AM EMAIL PRODUCER Clinical Support [facility] - Lab Collection [address] [facility] Floor [address] [place] [address] Malignant neoplasm of lower third of esophagus (HCC); Malignant neoplasm metastatic to bone (HCC) 03/02/2024 Telephone [facility] Oncology [address] [facility] Floor [address] [place] [address] Mariela San RN 03/02/2024 Telephone [facility] Bone Marrow Transplant [address] [facility] Floor [address] [place] [address] Kevin Flynn MD 03/02/2024 Telephone [facility] Radiation Oncology [facility] [place] [address] Matilde Flor, MATIAS 03/01/2024 Orders Only [facility] Scheduling [address] [place] [address] Kindra Monterroso NP Pneumonia due to infectious organism, unspecified laterality, unspecified part of lung (Primary Dx) 02/29/2024 5:25 AM EMAIL PRODUCER - 02/29/2024 11:59 PM EMAIL PRODUCER Hospital Encounter [facility] Radiation Oncology [address] [facility] [place] [address] Discharge Disposition: Discharge to home or self care 02/26/2024 10:38 PM EMAIL PRODUCER - 03/01/2024 6:23 PM EMAIL PRODUCER Hospital Encounter [facility] [address] [place] [address] Johnny Garcia MD Grierson, Patrick, MD PhD Carloz Ordoñez MD Fever, unspecified fever cause (Primary Dx); Shortness of breath; Acute cough; RSV bronchitis Discharge Disposition: Discharge to home or self care 02/26/2024 Telephone [facility] Oncology [address] [place] [address] 6 [place] [phone] Leah Moeller 02/15/2024 Telephone [facility] Radiation Oncology at [facility] [address] [place] [address] Walker Souza MD 02/14/2024 Orders Only [facility] Oncology [address] [place] [address] [address] [place] [address] Yakov Yousif MD PhD Malignant neoplasm of lower third of esophagus (HCC) (Primary Dx); Malignant neoplasm metastatic to bone (HCC); Secondary malignant neoplasm of liver (HCC) 02/07/2024 5:18 PM EMAIL PRODUCER - 02/07/2024 11:59 PM EMAIL PRODUCER Hospital Encounter [address] [address] Malignant neoplasm of lower third of esophagus (HCC); Malignant neoplasm metastatic to bone (HCC) Discharge Disposition: Discharge to home or self care 02/07/2024 3:30 PM EMAIL PRODUCER Infusion [facility] Infusion [address] [place] [address] [address] [place] [address] Malignant neoplasm metastatic to bone (HCC) (Primary Dx); Malignant neoplasm of lower third of esophagus (HCC) 02/07/2024 2:30 PM EMAIL PRODUCER Office Visit [facility] Oncology [address] [place] [address] [address] [place] [address] Bettie Porter PA Malignant neoplasm of lower third of esophagus (HCC); Malignant neoplasm metastatic to bone (HCC) 02/07/2024 1:30 PM EMAIL PRODUCER Clinical Support [facility] - Lab Collection [address] [facility] Floor [address] [place] [address] Malignant neoplasm of lower third of esophagus (HCC) (Primary Dx); Malignant neoplasm metastatic to bone (HCC) 02/07/2024 11:08 AM EMAIL PRODUCER - 02/07/2024 11:59 PM EMAIL PRODUCER Hospital Encounter [facility] - [place] [address] [facility] Floor [address] [place] [address] Malignant neoplasm of lower third of esophagus (HCC); Malignant neoplasm metastatic to bone (HCC); Secondary malignant neoplasm of liver (HCC) Discharge Disposition: Discharge to home or self care 02/07/2024 Orders Only [facility] Oncology [address] [place] [address] [address] [place] [address] Yakov Yousif MD PhD 02/07/2024 Orders Only [facility] Oncology [facility] Floor [address] [place] [address] Yakov Yousif MD PhD from Last 3 Months Immunizations Immunization Administration Dates Next Due Influenza, Quad, Adjuvantated, Intramuscular Influenza, Quadrivalent, Samantha l Culture-based MDCK, Preservative Free, Antibiotic Free, Intramuscular 11/07/2019 Influenza, Quadrivalent, Split, Intramuscular Influenza, Quadrivalent, Spl it, Preservative Free, Intramuscular 10/11/2018,11/17/2017 Influenza, Unspecified 11/04/2022,12/17/2018 Moderna SARS-CoV-2 Monovalent Vaccination (12+ Y RS) 04/26/2020,03/29/2020 Pneumococcal Conjugate PCV 13 03/09/2017 Pneumococcal Conjugate Pcv20 07/21/2022 Pneumococcal, Unspecified 2016 Tdap 10/27/2020 ZOSTER Recombinant 02/10/2018,11/16/2017 Surgical History Surgery Date Site/Laterality Comments COLONOSCOPY ESOPHAGOGASTRODUODENOSCOPY BIOPSY DEEP BONE 04/06/2019 N/A APPENDECTOMY 05/12/2021 HERNIA REPAIR TUNNELED LINE PLACEMENT > 5 YEARS 08/25/2022 N/A REMOVE TUNNELED LINE 09/22/2022 Left Medical History Medical History Date Comments Emphysema, unspecified (HCC) Hypercholesteremia Hypertension Prostate disease Asthma Sleep apnea wears cpap Esophageal adenocarcinoma (HCC) GERD (gastroesophageal reflux disease) Type 2 diabetes mellitus (HCC) Pulmonary embolism (HCC) Obesity DVT (deep venous thrombosis) (HCC) Right leg Family History Medical History Relation Name Comments Lung cancer Father Stroke Maternal Grandfather Heart failure Maternal Grandmother Colon cancer Mother Stroke Paternal Grandfather Heart failure Paternal Grandmother Relation Name Status Comments Father Maternal Grandfather Maternal Grandmother Mother Paternal Grandfather Paternal Grandmother Social History Tobacco Use Types Packs/Day Years Used Date Smoking Tobacco: Former Cigarettes 0.1 35 0 07/29/1982 - 07/29/2017 Smokeless Tobacco: Never Tobacco Cessation:Counseling Given: Not Answered Alcohol Use Standard Drinks/Week Comments Yes 0 (1 standard drink = 0.6 oz pur e alcohol) 2/week Appear Here Utilities Answer Date Recorded In the past 12 months has [employer], gas, oil, or water [employer] threatened to shut off services in your [...] 03/29/2024 How often do you attend chur or evangelical services? 1 to 4 times per year 03/29/2024 Do you belong to any clubs o r organizations such as mormon groups, unions, fraternal or athletic groups, or [...] place to sleep or slept in a halfway (including now)? No 09/02/2022 Housing Stability Vital Sign Answer Jeevan e Recorded In the last 12 months, was t here a time when you were not able to pay the mortgage or rent on time? No 03/29/2024 In the past 12 months, how m any times have you moved where you were living? 0 03/29/2024 At any time in the past 12 m [facility], were you homeless or living in a halfway (including now)? No 03/29/2024 Personal Safety Answer Date Recorded Have you ever been in or are you currently in a harmful physical or emotional relationship or is someone making you feel afraid or unsafe? Denies 03/29/2024 Sex and Gender Information Value Date Recorded Sex Assigned at Not on file Legal Sex Male 3:57 PM EMAIL PRODUCER Gender Identity Male 03/31/2019 1:28 PM EMAIL PRODUCER Sexual Orientation Straight 03/31/2019 1: 28 PM EMAIL PRODUCER Obstetrics History Last Filed Vital Signs Vital Sign Reading Time Taken Comments Blood Pressure 98/54 04/10/2024 11:48 AM EMAIL PRODUCER Pulse 104 04/10/2024 11:48 AM EMAIL PRODUCER Temperature 36.4 C (97.5 F) 04/10/2024 11:48 AM EMAIL PRODUCER Respiratory Rate 18 04/10/2024 11:48 AM EMAIL PRODUCER Oxygen Saturation 96% 04/10/2024 11:48 AM EMAIL PRODUCER Inhaled Oxygen Concentration - - Weight 90.7 kg (200 lb) 04/10/2024 11:48 AM EMAIL PRODUCER Height 175.3 cm (5' 9 ) 04/10/2024 11:48 AM EMAIL PRODUCER Body Mass Index 29.53 04/10/2024 11:48 AM EMAIL PRODUCER Plan of Treatment Health Maintenance Due Date Last Done Comments Colon Cancer Screening-Colonoscopy 1955 Hepatitis C Screening 1955 Prostate Cancer Screening-PSA 1955 Hepatitis B Screening 1974 Well Visit 65+ 2021 Depression Screening 08/20/2023 08/19/2022 Covid-19 Vaccine (2023-2 5 season) 2023 12/02/2022, 04/06/2022, 06/09/2021, Additional history exists Influenza Vaccine (#1) 2023 , 11/04/2022, 11/07/2019, Additional history exists Fall Risk Assessment 03/31/2025 03/31/2024 DTaP/Tdap/Td Vaccine (2 - Td or Tdap) 10/27/2030 10/27/2020 Zoster Vaccine Completed 02/10/2018, 11/16/2017 Pneumococcal vaccine 65+ Completed 023, 03/09/2017, 2016 Abdominal Aortic Aneurysm (A AA) Screen Completed 03/28/2024, 02/07/2024, 01/03/2024, Additional history exists Goals Goal Patient Goal Type Associated Problems Recent Progress Patient-Stated? Author CCM Chronic Pain Care Plan Chronic Care Management On track(2022 9:13 AM EMAIL PRODUCER) Madeleine Nguyen, RN Note: Problem: Chronic Pain Goals: 1. Minimize further functional decline 2. Maximize quality of life 3. Control pain Strategies: - Activity/exercise program recommendation - Conservative stepwise pain medicine strategy with multi-disciplinary approach - Recommend healthy lifestyle strategies and compensatory methods as needed Medical Devices Implanted Type Area Hot Metal Car Operator Device Identifier Shelf Expiration Date Model / Serial / Lot Vascular Access Power Port N/A: Chest Wall Procedures Procedure Name Priority Date/Time Associated Diagnosis Comments EGFR STAT 04/03/2024 11:33 AM EMAIL PRODUCER Malignant neoplasm of lower third of esophagus (HCC) Malignant neoplasm metastatic to bone (HCC) DIFFERENTIAL AUTO Routine 04/03/2024 11: 33 AM EMAIL PRODUCER Malignant neoplasm of lower third of esophagus (HCC) Malignant neoplasm metastatic to bone (HCC) CBC WITH AUTO DIFFERENTIAL Routine 04/03/2024 11:33 AM EMAIL PRODUCER Malignant neoplasm of lower third of esophagus (HCC) Malignant neoplasm metastatic to bone (HCC) COMPREHENSIVE METABOLIC PANEL STAT 04/03/2024 11:33 AM EMAIL PRODUCER Malignant neoplasm of lower third of esophagus (HCC) Malignant neoplasm metastatic to bone (HCC) PHOSPHORUS STAT 04/03/2024 11:33 AM EMAIL PRODUCER Malignant neoplasm of lower third of esophagus (HCC) Malignant neoplasm metastatic to bone (HCC) EGFR Routine 03/30/2024 9:30 PM EMAIL PRODUCER DIFFERENTIAL AUTO Routine 03/30/2024 9:3 0 PM EMAIL PRODUCER PHOSPHORUS Routine 03/30/2024 9:30 PM EMAIL PRODUCER MAGNESIUM Routine 03/30/2024 9:30 PM EMAIL PRODUCER COMPREHENSIVE METABOLIC PANEL Routine 03/30/2024 9:30 PM EMAIL PRODUCER CBC WITH AUTO DIFFERENTIAL Routine 03/30/2024 9:30 PM EMAIL PRODUCER VITAMIN B12 STAT 03/29/2024 9:49 PM EMAIL PRODUCER EGFR STAT 03/29/2024 9:49 PM EMAIL PRODUCER DIFFERENTIAL AUTO STAT 03/29/2024 9:4 9 PM EMAIL PRODUCER FOLATE STAT 03/29/2024 9:49 PM EMAIL PRODUCER FERRITIN STAT 03/29/2024 9:49 PM EMAIL PRODUCER IRON PROFILE W/ IBC STAT 03/29/2024 9 :49 PM EMAIL PRODUCER PHOSPHORUS STAT 03/29/2024 9:49 PM EMAIL PRODUCER MAGNESIUM STAT 03/29/2024 9:49 PM EMAIL PRODUCER COMPREHENSIVE METABOLIC PANEL STAT 03/29/2024 9:49 PM EMAIL PRODUCER CBC WITH AUTO DIFFERENTIAL STAT 03/29/2024 9:49 PM EMAIL PRODUCER INFECTION PREVENTION MRSA ONLY (STAPHYLOCOCCUS AUREUS) CULTURE Routine 03/29/2024 10:04 AM EMAIL PRODUCER STOOL CULTURE Routine 03/29/2024 5:54 AM EMAIL PRODUCER PNEUMONIA PCR WITH AEROBIC CULTURE AND GRAM STAIN Routine 03/29/2024 5:54 AM EMAIL PRODUCER INFECTION PREVENTION VRE CULTURE Routine 03/29/2024 3:53 AM EMAIL PRODUCER C. DIFFICILE TESTING Routine 03/29/2024 3:53 AM EMAIL PRODUCER PROTIME-INR Routine 03/29/2024 3:44 AM EMAIL PRODUCER APTT Routine 03/29/2024 3:44 AM EMAIL PRODUCER TYPE AND SCREEN Timed 03/29/2024 3:44 AM EMAIL PRODUCER LIPID PANEL Routine 03/29/2024 2:30 AM EMAIL PRODUCER EGFR Routine 03/29/2024 2:30 AM EMAIL PRODUCER DIFFERENTIAL AUTO Routine 03/29/2024 2:3 0 AM EMAIL PRODUCER PHOSPHORUS Routine 03/29/2024 2:30 AM EMAIL PRODUCER COMPREHENSIVE METABOLIC PANEL Routine 03/29/2024 2:30 AM EMAIL PRODUCER MAGNESIUM Routine 03/29/2024 2:30 AM EMAIL PRODUCER CBC WITH AUTO DIFFERENTIAL Routine 03/29/2024 2:[address] CHEST ABDOMEN PELVIS W CONTRAST ED Urgent/IP Urgent 03/28/2024 9:05 PM EMAIL PRODUCER BLOOD CULTURE Routine 03/28/2024 8:13 PM EMAIL PRODUCER BLOOD CULTURE Routine 03/28/2024 8:13 PM EMAIL PRODUCER POC BLOOD GAS AND CHEMISTRIES, ARTERIAL Routine 03/28/2024 7:51 PM EMAIL PRODUCER EGFR Routine 03/28/2024 7:47 PM EMAIL PRODUCER DIFFERENTIAL AUTO Routine 03/28/2024 7:4 7 PM EMAIL PRODUCER PROTIME-INR Routine 03/28/2024 7:47 PM EMAIL PRODUCER COMPREHENSIVE METABOLIC PANEL Routine 03/28/2024 7:47 PM EMAIL PRODUCER CBC WITH AUTO DIFFERENTIAL Routine 03/28/2024 7:47 PM EMAIL PRODUCER RESPIRATORY PATHOGEN PANEL Routine 03/28/2024 7:47 PM EMAIL PRODUCER RAD ONC ARIA SESSION SUMMARY 03/21/2024 11:15 AM EMAIL PRODUCER RAD ONC ARIA SESSION SUMMARY 03/20/2024 11:04 AM EMAIL PRODUCER RAD ONC ARIA SESSION SUMMARY 03/17/2024 11:17 AM EMAIL PRODUCER RAD ONC ARIA SESSION SUMMARY 03/16/2024 11:06 AM EMAIL PRODUCER RAD ONC ARIA SESSION SUMMARY 03/15/2024 2:01 PM EMAIL PRODUCER EGFR STAT 03/06/2024 11:52 AM EMAIL PRODUCER Malignant neoplasm of lower third of esophagus (HCC) Malignant neoplasm metastatic to bone (HCC) DIFFERENTIAL AUTO Routine 03/06/2024 11: 52 AM EMAIL PRODUCER Malignant neoplasm of lower third of esophagus (HCC) Malignant neoplasm metastatic to bone (HCC) PHOSPHORUS STAT 03/06/2024 11:52 AM EMAIL PRODUCER Malignant neoplasm of lower third of esophagus (HCC) Malignant neoplasm metastatic to bone (HCC) CBC WITH AUTO DIFFERENTIAL Routine 03/06/2024 11:52 AM EMAIL PRODUCER Malignant neoplasm of lower third of esophagus (HCC) Malignant neoplasm metastatic to bone (HCC) COMPREHENSIVE METABOLIC PANEL STAT 03/06/2024 11:52 AM EMAIL PRODUCER Malignant neoplasm of lower third of esophagus (HCC) Malignant neoplasm metastatic to bone (HCC) EGFR Routine 03/01/2024 1:06 AM EMAIL PRODUCER DIFFERENTIAL AUTO Routine 03/01/2024 1:0 6 AM EMAIL PRODUCER CBC WITH AUTO DIFFERENTIAL Routine 03/01/2024 1:06 AM EMAIL PRODUCER PHOSPHORUS Routine 03/01/2024 1:06 AM EMAIL PRODUCER MAGNESIUM Routine 03/01/2024 1:06 AM EMAIL PRODUCER BASIC METABOLIC PANEL Routine 03/01/2024 1:06 AM EMAIL PRODUCER EGFR Routine 02/29/2024 1:58 AM EMAIL PRODUCER DIFFERENTIAL AUTO Routine 02/29/2024 1:5 8 AM EMAIL PRODUCER CBC WITH AUTO DIFFERENTIAL Routine 02/29/2024 1:58 AM EMAIL PRODUCER PHOSPHORUS Routine 02/29/2024 1:58 AM EMAIL PRODUCER MAGNESIUM Routine 02/29/2024 1:58 AM EMAIL PRODUCER BASIC METABOLIC PANEL Routine 02/29/2024 1:58 AM EMAIL PRODUCER DRILL RUNNER HELPER EVALUATE AND TREAT FIBEROPTIC ENDOSCOPIC SWALLOW Routine 02/28/2024 4:08 PM EMAIL PRODUCER ERYTHROCYTE SEDIMENTATION RATE Timed 02/28/2024 11:35 AM EMAIL PRODUCER CRP (ACUTE PHASE) Timed 02/28/2024 11: 35 AM EMAIL PRODUCER APTT Timed 02/28/2024 11:35 AM EMAIL PRODUCER PROTIME-INR Timed 02/28/2024 11:35 AM EMAIL PRODUCER DRILL RUNNER HELPER EVALUATE AND TREAT Routine 02/28/2024 11:06 AM EMAIL PRODUCER EGFR Routine 02/28/2024 12:35 AM EMAIL PRODUCER DIFFERENTIAL AUTO Routine 02/28/2024 12: 35 AM EMAIL PRODUCER CBC WITH AUTO DIFFERENTIAL Routine 02/28/2024 12:35 AM EMAIL PRODUCER BASIC METABOLIC PANEL Routine 02/28/2024 12:35 AM EMAIL PRODUCER MRSA ONLY (STAPHYLOCOCCUS AUREUS) CULTURE Routine 02/27/2024 5:06 AM EMAIL PRODUCER PNEUMONIA PCR Routine 02/27/2024 4:21 AM EMAIL PRODUCER PNEUMONIA PCR WITH AEROBIC CULTURE AND GRAM STAIN Routine 02/27/2024 4:21 AM EMAIL PRODUCER URINALYSIS, MICROSCOPIC ONLY STAT 02/27/2024 2:56 AM EMAIL PRODUCER URINALYSIS AND REFLEX TO MICROSCOPIC AND CULTURE STAT 02/27/2024 2:[address] CHEST W CONTRAST ED 02/27/2024 1 :14 AM EMAIL PRODUCER RESPIRATORY PATHOGEN PANEL Routine 02/27/2024 12:15 AM EMAIL PRODUCER BLOOD CULTURE STAT 02/27/2024 12:15 AM EMAIL PRODUCER BLOOD CULTURE STAT 02/27/2024 12:15 AM EMAIL PRODUCER POCT LACTATE - DEVICE Routine 02/26/2024 10:05 PM EMAIL PRODUCER XR CHEST PA LATERAL 2 VIEWS ED 02/26/2024 10:02 PM EMAIL PRODUCER EGFR STAT 02/26/2024 9:53 PM EMAIL PRODUCER DIFFERENTIAL AUTO STAT 02/26/2024 9:5 3 PM EMAIL PRODUCER COMPREHENSIVE METABOLIC PANEL STAT 02/26/2024 9:53 PM EMAIL PRODUCER CBC WITH AUTO DIFFERENTIAL STAT 02/26/2024 9:53 PM EMAIL PRODUCER RESPIRATORY PATHOGEN PANEL Routine 02/07/2024 6:24 PM EMAIL PRODUCER Malignant neoplasm of lower third of esophagus (HCC) Malignant neoplasm metastatic to bone (HCC) EGFR STAT 02/07/2024 12:15 PM EMAIL PRODUCER Malignant neoplasm of lower third of esophagus (HCC) Malignant neoplasm metastatic to bone (HCC) DIFFERENTIAL AUTO Routine 02/07/2024 12: 15 PM EMAIL PRODUCER Malignant neoplasm of lower third of esophagus (HCC) Malignant neoplasm metastatic to bone (HCC) CBC WITH AUTO DIFFERENTIAL Routine 02/07/2024 12:15 PM EMAIL PRODUCER Malignant neoplasm of lower third of esophagus (HCC) Malignant neoplasm metastatic to bone (HCC) COMPREHENSIVE METABOLIC PANEL STAT 02/07/2024 12:15 PM EMAIL PRODUCER Malignant neoplasm of lower third of esophagus (HCC) Malignant neoplasm metastatic to bone (HCC) PHOSPHORUS STAT 02/07/2024 12:15 PM EMAIL PRODUCER Malignant neoplasm of lower third of esophagus (HCC) Malignant neoplasm metastatic to bone (HCC) CT CHEST ABDOMEN PELVIS W CONTRAST Schedule Routine, Read Routine (OP Routine) 02/07/2024 11:42 AM EMAIL PRODUCER Malignant neoplasm of lower third of esophagus (HCC) Malignant neoplasm metastatic to bone (HCC) Secondary malignant neoplasm of liver (HCC) from Last 3 Months Results * eGFR (04/03/2024 11:33 AM EMAIL PRODUCER) eGFR >90 >=60 mL/min/1. 73 m2 Comment: [...] reviewed 2020. Blood 04/03/2024 11:3 3 AM EMAIL PRODUCER 04/03/2024 11:36 AM EMAIL PRODUCER us Yakov Yousif MD PhD LAB BLOOD ORDERABLES Fin al Result CERNER [facility] [place] [address] * Differential, auto (04/03/2024 11:33 AM EMAIL PRODUCER) Neutrophil abs 4.8 1.5 - 6.5 K/cumm Comment:Testing performed by : [facility], [address] [place] [phone] Lymphocyte abs 0.8 0.8 - 3.3 K/cumm [facility] Comment:Testing performed by : [facility], [address] [place] [phone] Monocyte abs 0.6 0.2 - 0.8 K/cumm [facility] Comment:Testing performed by : [facility], [address] [place] [address] Eosinophil abs 0.0 0.0 - 0.5 K/cumm [facility] Comment:Testing performed by : [facility], [address] [place] [phone] Basophil abs 0.0 0.0 - 0.1 K/cumm [facility] Comment:Testing performed by : [facility], [address] [place] [phone] Neutrophil pct 76.7 % [facility] Comment: Interpretive Data Percent cell count reference ranges are not reported, since discordance with absolute values may lead to misinterpretation of CBC data. Current Interpretive Data was last revised on 2017. Testing performed by: [facility], [address] [place] [phone] Lymphocyte pct 12.1 % [facility] Comment: Interpretive Data Percent cell count reference ranges are not reported, since discordance with absolute values may lead to misinterpretation of CBC data. Current Interpretive Data was last revised on 2017. Testing performed by: [facility], [address] [place] [phone] Monocyte pct 10.4 % [facility] Comment: Interpretive Data Percent cell count reference ranges are not reported, since discordance with absolute values may lead to misinterpretation of CBC data. Current Interpretive Data was last revised on 2017. Testing performed by: [facility], [address] [place] [phone] Eosinophil pct 0.3 % LOLI [facility] Comment: Interpretive Data Percent cell count reference ranges are not reported, since discordance with absolute values may lead to misinterpretation of CBC data. Current Interpretive Data was last revised on 2017. Testing performed by: [facility], [address] [place] [phone] Basophil pct 0.5 % [facility] Comment: Interpretive Data Percent cell count reference ranges are not reported, since discordance with absolute values may lead to misinterpretation of CBC data. Current Interpretive Data was last revised on 2017. Testing performed by: [facility], [address] [place] [phone] Blood 04/03/2024 11:3 3 AM EMAIL PRODUCER 04/03/2024 11:34 AM EMAIL PRODUCER us Yakov Yousif MD PhD LAB BLOOD ORDERABLES Fin al Result LOLI [facility] Department [place] [address] * (ABNORMAL) CBC with auto differential (04/03/2024 11:33 AM EMAIL PRODUCER) WBC 6.2 3.8 - 9.9 K/cumm Comment:Testing performed by : [facility], [address] [place] [phone] Hgb 10.6(L) 13.0 - 17.5 g/dL LOLI [facility] Comment:Testing performed by : [facility], [address] [place] [address] Hct 32.6(L) 38.9 - 50.3 % LOLI [facility] Comment:Testing performed by : [facility], [address] [place] [address] Plt 254 150 - 400 K/cumm LOLI DE [facility] Comment:Testing performed by : [facility], [address] [place] [address] MPV 8.0 6.8 - 10.4 fL [facility]I [facility] Comment:Testing performed by : [facility], [address] [place], [place] [phone] RBC 3.94(L) 4.30 - 5.80 M/cumm CERAMANDA DE SANTIAGO Comment:Testing performed by : [facility], [address] [place], [place] [phone] MCV 82.7 81.3 - 96.[address] [facility] Comment:Testing performed by : [facility], [address] [place], [place] [phone] MCH 26.8(L) 27.1 - 33.[address] [facility] Comment:Testing performed by : [facility], [address] [place], [place] [phone] MCHC 32.4 32.3 - 35.7 g/dL LOLI [facility] Comment:Testing performed by : [facility], [address] [place], [place] [phone] RDW CV 18.4(H) 11.1 - 14.9 % LOLI [facility] Comment:Testing performed by : [facility], [address] [place], [place] [phone] NRBC abs 0.00 0.00 - 0.01 K/cumm LOLI [facility] Comment:Testing performed by : [facility], [address] [place], [place] [phone] Blood 04/03/2024 11:3 3 AM EMAIL PRODUCER 04/03/2024 11:34 AM EMAIL PRODUCER us Yakov Yousif MD PhD LAB BLOOD ORDERABLES Fin al Result [facility] Department [place] [address] * Phosphorus (04/03/2024 11:33 AM EMAIL PRODUCER) Phosphorus, pl 3.0 2.3 - 4.5 mg/dL Blood 04/03/2024 11:3 3 AM EMAIL PRODUCER 04/03/2024 11:36 AM EMAIL PRODUCER us Yakov Yousif MD PhD LAB BLOOD ORDERABLES Fin al Result [facility] Department [place] [address] * (ABNORMAL) Comprehensive metabolic panel (04/03/2024 11:33 AM EMAIL PRODUCER) Sodium 139 135 - 145 mmol/L Potassium, pl 3.9 3.3 - 4.9 mmol/L [facility] Chloride 104 97 - 110 mmol/L [facility] CO2 29 22 - 32 mmol/L [facility] Anion gap 6 2 - 15 mmol/L [facility] BUN 19 6 - 25 mg/dL [facility] Creatinine 0.72(L) 0.80 - 1.30 mg/dL [facility] Glucose 94 70 - 199 mg/dL [facility] Comment: Interpretive Data Fasting glucose >/= 126 [...] 2022. Calcium 9.0 8.5 - 10.3 mg/dL [facility] Bilirubin, total 0.3 0.1 - 1.2 mg/dL [facility] Protein, pl 6.5 6.5 - 8.5 g/dL [facility] Albumin 3.4(L) 3.5 - 5.0 g/dL [facility] Alk phos 73 40 - 130 Units/L [facility] ALT 37 7 - 55 Units/L [facility] AST 28 10 - 50 Units/L [facility] Blood 04/03/2024 11:3 3 AM EMAIL PRODUCER 04/03/2024 11:36 AM EMAIL PRODUCER Yakov Yousif MD PhD LAB BLOOD ORDERABLES Fin al Result Performing Organization Address City/[facility] Co de Phone Number [facility] Department [place] [address] * eGFR (03/30/2024 9:30 PM EMAIL PRODUCER) Pathologist [facility] eGFR >90 >=60 mL/min/1. 73 m2 Comment: [...] last reviewed 2020. Blood 03/30/2024 9:30 PM EMAIL PRODUCER 03/30/2024 9:44 PM EMAIL PRODUCER Yakov Yousif MD PhD LAB BLOOD ORDERABLES Fin al Result Performing Organization Address City/[facility] Co de Phone Number [facility] Department [place] [address] * (ABNORMAL) Differential, auto (03/30/2024 9:30 PM EMAIL PRODUCER) Pathologist [facility] Neutrophil abs 2.0 1.5 - 6.5 K/cumm Imm gran abs 0.0 0.0 - 0.1 K/cumm [facility] Lymphocyte abs 0.4(L) 0.8 - 3.3 K/cumm [facility] Monocyte abs 0.3 0.2 - 0.8 K/cumm [facility] Eosinophil abs 0.0 0.0 - 0.5 K/cumm [facility] Basophil abs 0.0 0.0 - 0.1 K/cumm [facility] Neutrophil pct 74.5 % [facility] Comment: Interpretive Data Percent cell count reference ranges are not reported, since discordance with absolute values may lead to misinterpretation of CBC data. Current Interpretive Data was last revised on 2017. Imm gran pct 0.8 % [facility] Comment: Interpretive Data Percent cell count reference ranges are not reported, since discordance with absolute values may lead to misinterpretation of CBC data. Current Interpretive Data was last revised on 2017. Lymphocyte pct 15.2 % [facility] Comment: Interpretive Data Percent cell count reference ranges are not reported, since discordance with absolute values may lead to misinterpretation of CBC data. Current Interpretive Data was last revised on 2017. Monocyte pct 9.5 % [facility] Comment: Interpretive Data Percent cell count reference ranges are not reported, since discordance with absolute values may lead to misinterpretation of CBC data. Current Interpretive Data was last revised on 2017. Eosinophil pct 0.0 % [facility] Comment: Interpretive Data Percent cell count reference ranges are not reported, since discordance with absolute values may lead to misinterpretation of CBC data. Current Interpretive Data was last revised on 2017. Basophil pct 0.0 % [facility] Comment: Interpretive Data Percent cell count reference ranges are not reported, since discordance with absolute values may lead to misinterpretation of CBC data. Current Interpretive Data was last revised on 2017. Blood 03/30/2024 9:30 PM EMAIL PRODUCER 03/30/2024 9:44 PM EMAIL PRODUCER us Yakov Yousif MD PhD LAB BLOOD ORDERABLES Fin al Result [facility] Department [place] [address] * (ABNORMAL) CBC with auto differential (03/30/2024 9:30 PM EMAIL PRODUCER) [facility] WBC 2.6(L) 3.8 - 9.9 K/cumm Hgb 9.2(L) 13.0 - 17.5 g/dL [facility] Hct 29.3(L) 38.9 - 50.3 % [facility] Plt 199 150 - 400 K/cumm [facility] MPV 9.6 9.1 - 12.3 fL [facility] RBC 3.57(L) 4.30 - 5.80 M/cumm [facility] MCV 82.1 81.3 - 96.4 fL [facility] MCH 25.8(L) 27.1 - 33.3 pg [facility] MCHC 31.4(L) 32.3 - 35.7 g/dL [facility] RDW CV 17.3(H) 11.1 - 14.9 % [facility] RDW SD 52.7(H) 35.7 - 48.1 fL [facility] NRBC abs 0.00 0.00 - 0.01 K/cumm [facility] Blood 03/30/2024 9:30 PM EMAIL PRODUCER 03/30/2024 9:44 PM EMAIL PRODUCER Yakov Yousif MD PhD LAB BLOOD ORDERABLES Fin al Result Performing Organization Address City/[facility] de Phone Number [facility] [employer] [place] [address] * (ABNORMAL) Phosphorus (03/30/2024 9:30 PM EMAIL PRODUCER) [facility] Phosphorus, pl 2.0(L) 2.3 - 4.5 mg/dL Blood 03/30/2024 9:30 PM EMAIL PRODUCER 03/30/2024 9:44 PM EMAIL PRODUCER Yakov Yousif MD PhD LAB BLOOD ORDERABLES Fin al Result Performing Organization Address [facility] Co de Phone Number [facility] [place] [employer] [place] [address] * Magnesium (03/30/2024 9:30 PM EMAIL PRODUCER) Magnesium 2.0 1.4 - 2.5 mg/dL Blood 03/30/2024 9:30 PM EMAIL PRODUCER 03/30/2024 9:44 PM EMAIL PRODUCER us Yakov Yousif MD PhD LAB BLOOD ORDERABLES Fin al Result [facility] Department [place] [address] * (ABNORMAL) Comprehensive metabolic panel (03/30/2024 9:30 PM EMAIL PRODUCER) Pathologist [facility] Sodium 135 135 - 145 mmol/L Potassium, pl 4.0 3.3 - 4.9 mmol/L [facility] Chloride 103 97 - 110 mmol/L [facility] CO2 22 22 - 32 mmol/L [facility] Anion gap 10 2 - 15 mmol/L [facility] BUN 19 6 - 25 mg/dL [facility] Creatinine 0.72(L) 0.80 - 1.30 mg/dL [facility] Glucose 219(H) 70 - 199 mg/dL [facility] Comment: Interpretive Data Fasting glucose >/= 126 [...] 2022. Calcium 8.2(L) 8.5 - 10.3 mg/dL [facility] Bilirubin, total 0.2 0.1 - 1.2 mg/dL [facility] Protein, pl 6.5 6.5 - 8.5 g/dL [facility] Albumin 3.3(L) 3.5 - 5.0 g/dL [facility] Alk phos 72 40 - 130 Units/L [facility] ALT 34 7 - 55 Units/L [facility] AST 39 10 - 50 Units/L [facility] Blood 03/30/2024 9:30 PM EMAIL PRODUCER 03/30/2024 9:44 PM EMAIL PRODUCER Yakov Yousif MD PhD LAB BLOOD ORDERABLES Fin al Result Performing Organization Address [facility] de Phone Number [facility] Department [place] [address] * eGFR (03/29/2024 9:49 PM EMAIL PRODUCER) Pathologist [facility] eGFR >90 >=60 mL/min/1. 73 m2 Comment: [...] last reviewed 2020. Blood 03/29/2024 9:49 PM EMAIL PRODUCER 03/29/2024 10:05 PM EMAIL PRODUCER Yakov Yousif MD PhD LAB BLOOD ORDERABLES Fin al Result Performing Organization Address [facility] Co de Phone Number [facility] Department [place] [address] * (ABNORMAL) Differential, auto (03/29/2024 9:49 PM EMAIL PRODUCER) Neutrophil abs 2.6 1.5 - 6.5 K/cumm Imm gran abs 0.0 0.0 - 0.1 K/cumm [facility] Lymphocyte abs 0.3(L) 0.8 - 3.3 K/cumm [facility] Monocyte abs 0.1(L) 0.2 - 0.8 K/cumm [facility] Eosinophil abs 0.0 0.0 - 0.5 K/cumm [facility] Basophil abs 0.0 0.0 - 0.1 K/cumm [facility] Neutrophil pct 87.0 % [facility] Comment: Interpretive Data Percent cell count reference ranges are not reported, since discordance with absolute values may lead to misinterpretation of CBC data. Current Interpretive Data was last revised on 2017. Imm gran pct 0.7 % [facility] Comment: Interpretive Data Percent cell count reference ranges are not reported, since discordance with absolute values may lead to misinterpretation of CBC data. Current Interpretive Data was last revised on 2017. Lymphocyte pct 9.2 % [facility] Comment: Interpretive Data Percent cell count reference ranges are not reported, since discordance with absolute values may lead to misinterpretation of CBC data. Current Interpretive Data was last revised on 2017. Monocyte pct 3.1 % [facility] Comment: Interpretive Data Percent cell count reference ranges are not reported, since discordance with absolute values may lead to misinterpretation of CBC data. Current Interpretive Data was last revised on 2017. Eosinophil pct 0.0 % [facility] Comment: Interpretive Data Percent cell count reference ranges are not reported, since discordance with absolute values may lead to misinterpretation of CBC data. Current Interpretive Data was last revised on 2017. Basophil pct 0.0 % [facility] Comment: Interpretive Data Percent cell count reference ranges are not reported, since discordance with absolute values may lead to misinterpretation of CBC data. Current Interpretive Data was last revised on 2017. Blood 03/29/2024 9:49 PM EMAIL PRODUCER 03/29/2024 10:05 PM EMAIL PRODUCER us Yakov Yousif MD PhD LAB BLOOD ORDERABLES Fin al Result Performing Organization Address City/[facility]/ZIP Co de Phone Number [facility] Department [place] [address] * (ABNORMAL) Iron profile w/ IBC (03/29/2024 9:49 PM EMAIL PRODUCER) [facility] Iron 21(L) 50 - 150 mcg/dL TIBC 127(L) 250 - 400 mcg/dL [facility] Transferrin saturation 17(L) 20 - 50 % [facility] Blood 03/29/2024 9:49 PM EMAIL PRODUCER 03/29/2024 10:05 PM EMAIL PRODUCER us Yakov Yousif MD PhD LAB BLOOD ORDERABLES Fin al Result Performing Organization Address [facility] Co de Phone Number [facility] [place] [address] * (ABNORMAL) CBC with auto differential (03/29/2024 9:49 PM EMAIL PRODUCER) [facility] WBC 2.9(L) 3.8 - 9.9 K/cumm Hgb 9.7(L) 13.0 - 17.5 g/dL [facility] Hct 30.8(L) 38.9 - 50.3 % [facility] Plt 204 150 - 400 K/cumm [facility] MPV 10.5 9.1 - 12.3 fL [facility] RBC 3.72(L) 4.30 - 5.80 M/cumm [facility] MCV 82.8 81.3 - 96.4 fL [facility] MCH 26.1(L) 27.1 - 33.3 pg [facility] MCHC 31.5(L) 32.3 - 35.7 g/dL [facility] RDW CV 17.4(H) 11.1 - 14.9 % [facility] RDW SD 53.1(H) 35.7 - 48.1 fL [facility] NRBC abs 0.00 0.00 - 0.01 K/cumm [facility] Blood 03/29/2024 9:49 PM EMAIL PRODUCER 03/29/2024 10:05 PM EMAIL PRODUCER Yakov Yousif MD PhD LAB BLOOD ORDERABLES Fin al Result Performing Organization Address [facility] Phone Number [facility] [place] [address] * Phosphorus (03/29/2024 9:49 PM EMAIL PRODUCER) Phosphorus, pl 2.4 2.3 - 4.5 mg/dL Blood 03/29/2024 9:49 PM EMAIL PRODUCER 03/29/2024 10:05 PM EMAIL PRODUCER Yakov Yousif MD PhD LAB BLOOD ORDERABLES Fin al Result Performing Organization Address [facility] Phone Number [facility] [place] [address] * Magnesium (03/29/2024 9:49 PM EMAIL PRODUCER) Magnesium 1.9 1.4 - 2.5 mg/dL Blood 03/29/2024 9:49 PM EMAIL PRODUCER 03/29/2024 10:05 PM EMAIL PRODUCER Yakov Yousif MD PhD LAB BLOOD ORDERABLES Fin al Result Performing Organization Address [facility] Phone Number [facility] [employer] [place] [address] * Folate (03/29/2024 9:49 PM EMAIL PRODUCER) Folic acid >20.0 >=5.0 ng/mL Blood 03/29/2024 9:49 PM EMAIL PRODUCER 03/29/2024 10:05 PM EMAIL PRODUCER Yakov Yousif MD PhD LAB BLOOD ORDERABLES Fin al Result Performing Organization Address [facility]/State/ZIP Co de Phone Number [facility] [place] [address] * (ABNORMAL) Ferritin (03/29/2024 9:49 PM EMAIL PRODUCER) [facility] Ferritin 448(H) 30 - 400 ng/mL Blood 03/29/2024 9:49 PM EMAIL PRODUCER 03/29/2024 10:05 PM EMAIL PRODUCER Yakov Yousif MD PhD LAB BLOOD ORDERABLES Fin al Result Performing Organization Address City/[facility] Co de Phone Number [facility] [place] [address] * (ABNORMAL) Vitamin B12 (03/29/2024 9:49 PM EMAIL PRODUCER) [facility] Vitamin B12 >2,000(H) 230 - 1,250 pg/mL Blood 03/29/2024 9:49 PM EMAIL PRODUCER 03/29/2024 10:05 PM EMAIL PRODUCER Yakov Yousif MD PhD LAB BLOOD ORDERABLES Fin al Result Performing Organization Address [facility] Co de Phone Number [facility] Department [place] [address] * (ABNORMAL) Comprehensive metabolic panel (03/29/2024 9:49 PM EMAIL PRODUCER) [facility] Sodium 135 135 - 145 mmol/L Potassium, pl 4.6 3.3 - 4.9 mmol/L [facility] Chloride 103 97 - 110 mmol/L [facility] CO2 23 22 - 32 mmol/L [facility] Anion gap 9 2 - 15 mmol/L [facility] BUN 21 6 - 25 mg/dL [facility] Creatinine 0.75(L) 0.80 - 1.30 mg/dL [facility] Glucose 186 70 - 199 mg/dL [facility] Comment: Interpretive Data Fasting glucose >/= 126 [...] 2022. Calcium 8.1(L) 8.5 - 10.3 mg/dL [facility] Bilirubin, total 0.2 0.1 - 1.2 mg/dL [facility] Protein, pl 6.6 6.5 - 8.5 g/dL [facility] Albumin 3.2(L) 3.5 - 5.0 g/dL [facility] Alk phos 72 40 - 130 Units/L [facility] ALT 25 7 - 55 Units/L [facility] AST 33 10 - 50 Units/L [facility] Blood 03/29/2024 9:49 PM EMAIL PRODUCER 03/29/2024 10:05 PM EMAIL PRODUCER us Yakov Yousif MD PhD LAB BLOOD ORDERABLES Fin al Result Performing Organization Address City/[facility]/ZIP Co de Phone Number [facility] Department [place] [employer] [place] [address] * Infection Prevention MRSA Only (Staphylococcus aureus) Culture Nasal (03/29/2024 10:04 AM EMAIL PRODUCER) Report Final Report: Negative Nasal 03/29/2024 10:0 4 AM EMAIL PRODUCER 03/29/2024 10:25 AM EMAIL PRODUCER Narrative [facility] - 03/30/2024 11:16 AM EMAIL PRODUCER Testing performed by [facility] ([phone]). us Radha Myles MD LAB MICROBIOLOGY - G ENERAL ORDERABLES Final Result Performing Organization Address City/[facility]/ZIP Co de Phone Number [facility] Department [place] [employer] [place] [address] * (ABNORMAL) Pneumonia PCR with aerobic culture and Gram stain Sputum (03/29/2024 5:54 AM EMAIL PRODUCER) Direct Specimen Exam Stain: Abundant squamous epithelial cells seen indicating excessive oropharyngeal contamination. Culture will not be processed further. Please submit another specimen. Smear results called to and read back by: Arielle Grissom RN [phone] on 03/29/2024 09:12:57 by: Isabel Adames MT Direct Specimen Exam Molecular Analysis: Abundant squamous epithelial cells observed on Gram stain. Specimen will not be processed for rapid molecular analysis. [facility] Report Final Report: This is the final report. (.) [facility] Sputum 03/29/2024 5:54 AM EMAIL PRODUCER 03/29/2024 7:48 AM EMAIL PRODUCER Narrative [facility] - 03/30/2024 9:59 AM EMAIL PRODUCER When rapid molecular testing results are reported, testing completed using the [employer] Pneumonia Panel. This molecular assay detects: Acinetobacter [...] results and susceptibility testing is recommended. The [employer] VaccinesArray Pneumonia Panel is cleared by the [place] Food and Drug Administration and its performance characteristics have been confirmed by the [facility]. The performance of the Film[employer] Pneumonia Panel has not been established for monitoring treatment of infection and bacterial nucleic acids may persist independent of organism viability. Radha Myles MD LAB MICROBIOLOGY - ENERAL ORDERABLES Final Result Performing Organization Address [facility] Co de Phone Number [facility] Department [place] [address] * Stool culture Stool Rectum (03/29/2024 5:54 AM EMAIL PRODUCER) Pathologist [facility] Direct Specimen Exam Shiga Toxin Testing: Antigen detection assay for Shiga-toxin NEGATIVE for Shiga Toxin 1 and Shiga Toxin 2. Report Final Report: No growth of enteric bacterial pathogens [facility] Stool (Rectum) 03/29/2024 5: 54 AM EMAIL PRODUCER 03/29/2024 7:51 AM EMAIL PRODUCER Narrative [facility] - 04/02/2024 10:13 AM EMAIL PRODUCER Testing performed by [facility] ([phone]). Routine stool cultures include procedures to detect Salmonella, Shigella, Edwardsiella, Aeromonas, Pleisiomonas, Campylobacter, Yersinia, E. coli O157, and Shiga-like toxins. Vibrio is cultured only upon special request. If Vibrio is suspected, please call the laboratory at [phone]. Interpretive data was last updated June 22, 2016. Radha Myles MD LAB MICROBIOLOGY - ENERAL ORDERABLES Final Result Performing Organization Address [facility] Co de Phone Number [facility] Department [place] [address] * C. difficile testing Stool (03/29/2024 3:53 AM EMAIL PRODUCER) [facility] Result Positive Negative Toxin Result Negative Negative [facility] C. diff result Negative, free toxin. Negative, free toxin [facility] C. diff interp GDH+/toxin- results almost never represent true C. difficile infection (CDI). Results may represent colonization with C. difficile without CDI, detection of a bacteria other than toxigenic C. difficile, or a false negative toxin assay. If there is a high index of suspicion for CDI, additional testing by PCR is available upon request. [facility] Stool 03/29/2024 3:53 AM EMAIL PRODUCER 03/29/2024 4:56 PM EMAIL PRODUCER Result [place] [facility] Yakov Yousif MD PhD LAB MICROBIOLOGY - GENER AL ORDERABLES Final Result Performing Organization Address [facility] Phone Number [facility] [place] [address] * Infection Prevention VRE Culture Stool (03/29/2024 3:53 AM EMAIL PRODUCER) Report Final Report: Negative Stool 03/29/2024 3:53 AM EMAIL PRODUCER 03/29/2024 8:48 PM EMAIL PRODUCER Narrative [facility] - 04/01/2024 1:06 AM EMAIL PRODUCER Surveillance culture for Infection Prevention purposes only; results indicate colonization, not infection requiring treatment. Testing performed by [facility] ([phone]). Result [place] [facility] Yakov Yousif MD PhD LAB MICROBIOLOGY - GENER AL ORDERABLES Final Result Performing Organization Address [facility] de Phone Number [facility] [place] [address] * aPTT (03/29/2024 3:44 AM EMAIL PRODUCER) aPTT 33 28 - 38 sec Comment: Interpretive Data Heparin therapeutic range: 66.0 - 100.0 seconds. Range based on correlation with therapeutic heparin activity range of 0.3 - 0.7 Units/mL. Current interpretive data was last revised on 2022. Blood 03/29/2024 3:44 AM EMAIL PRODUCER 03/29/2024 4:05 AM EMAIL PRODUCER Result [place] [facility] Radha Myles MD LAB BLOOD ORDERABLES Final Result Performing Organization Address [facility] de Phone Number [facility] [place] [address] * (ABNORMAL) Protime-INR (03/29/2024 3:44 AM EMAIL PRODUCER) [facility] PT 13.4(H) 9.7 - 13.0 sec INR 1.24(H) 0.90 - 1.20 [facility] Comment: Interpretive data Oral anticoagulant therapeutic ranges: Venous thromboembolism prophylaxis or treatment: 2.0-3.0 CARDIOLOGY Standard range: 2.0-3.0 High-intensity range: 2.5-3.5 Refer to indication-specific guidelines for appropriate target ranges for prosthetic heart valve replacement. Current interpretive data was last revised on 2019. Blood 03/29/2024 3:44 AM EMAIL PRODUCER 03/29/2024 4:05 AM EMAIL PRODUCER Radha Myles MD LAB [place] [address] * Type and screen (03/29/2024 3:44 AM EMAIL PRODUCER) [facility] Zeke, indirect Negative ABO Rh A Positive [facility] Blood 03/29/2024 3:44 AM EMAIL PRODUCER 03/29/2024 3:57 AM EMAIL PRODUCER Narrative [facility] - 03/29/2024 4:44 AM EMAIL PRODUCER Has the patient had Daratumumab or Isatuximab in the past 6 months?->Unknown us Radha Myles MD LAB BLOOD BANK [place] [address] * eGFR (03/29/2024 2:30 AM EMAIL PRODUCER) [facility] eGFR 82 >=60 mL/min/1. 73 m2 Comment: [...] last reviewed 2020. Blood 03/29/2024 2:30 AM EMAIL PRODUCER 03/29/2024 3:58 AM EMAIL PRODUCER us Radha Myles MD LAB BLOOD ORDERABLES Final Result [facility] Department [place] [address] * (ABNORMAL) Differential, auto (03/29/2024 2:30 AM EMAIL PRODUCER) Pathologist [facility] Neutrophil abs 2.8 1.5 - 6.5 K/cumm Imm gran abs 0.0 0.0 - 0.1 K/cumm [facility] Lymphocyte abs 0.4(L) 0.8 - 3.3 K/cumm [facility] Monocyte abs 0.4 0.2 - 0.8 K/cumm [facility] Eosinophil abs 0.0 0.0 - 0.5 K/cumm [facility] Basophil abs 0.0 0.0 - 0.1 K/cumm [facility] Neutrophil pct 77.2 % [facility] Comment: Interpretive Data Percent cell count reference ranges are not reported, since discordance with absolute values may lead to misinterpretation of CBC data. Current Interpretive Data was last revised on 2017. Imm gran pct 0.3 % [facility] Comment: Interpretive Data Percent cell count reference ranges are not reported, since discordance with absolute values may lead to misinterpretation of CBC data. Current Interpretive Data was last revised on 2017. Lymphocyte pct 11.8 % [facility] Comment: Interpretive Data Percent cell count reference ranges are not reported, since discordance with absolute values may lead to misinterpretation of CBC data. Current Interpretive Data was last revised on 2017. Monocyte pct 10.7 % [facility] Comment: Interpretive Data Percent cell count reference ranges are not reported, since discordance with absolute values may lead to misinterpretation of CBC data. Current Interpretive Data was last revised on 2017. Eosinophil pct 0.0 % [facility] Comment: Interpretive Data Percent cell count reference ranges are not reported, since discordance with absolute values may lead to misinterpretation of CBC data. Current Interpretive Data was last revised on 2017. Basophil pct 0.0 % [facility] Comment: Interpretive Data Percent cell count reference ranges are not reported, since discordance with absolute values may lead to misinterpretation of CBC data. Current Interpretive Data was last revised on 2017. Blood 03/29/2024 2:30 AM EMAIL PRODUCER 03/29/2024 3:58 AM EMAIL PRODUCER us Radha Myles MD LAB BLOOD ORDERABLES Final Result [facility] Department [place] [address] * (ABNORMAL) CBC with auto differential (03/29/2024 2:30 AM EMAIL PRODUCER) WBC 3.6(L) 3.8 - 9.9 K/cumm Hgb 9.1(L) 13.0 - 17.5 g/dL [facility] Hct 29.4(L) 38.9 - 50.3 % [facility] Plt 180 150 - 400 K/cumm [facility] MPV 9.8 9.1 - 12.3 fL [facility] RBC 3.48(L) 4.30 - 5.80 M/cumm [facility] MCV 84.5 81.3 - 96.4 fL [facility] MCH 26.1(L) 27.1 - 33.3 pg [facility] MCHC 31.0(L) 32.3 - 35.7 g/dL [facility] RDW CV 17.5(H) 11.1 - 14.9 % [facility] RDW SD 54.4(H) 35.7 - 48.1 fL [facility] NRBC abs 0.00 0.00 - 0.01 K/cumm [facility] Blood 03/29/2024 2:30 AM EMAIL PRODUCER 03/29/2024 3:58 AM EMAIL PRODUCER Radha Myles MD LAB BLOOD ORDERABLES Final Result Performing Organization Address [facility] de Phone Number [facility] Department [place] [address] * Phosphorus (03/29/2024 2:30 AM EMAIL PRODUCER) Phosphorus, pl 3.0 2.3 - 4.5 mg/dL Blood 03/29/2024 2:30 AM EMAIL PRODUCER 03/29/2024 3:58 AM EMAIL PRODUCER Radha Myles MD LAB BLOOD ORDERABLES Final Result Performing Organization Address City/[facility] Co de Phone Number [facility] Department [place] [address] * Magnesium (03/29/2024 2:30 AM EMAIL PRODUCER) Magnesium 2.1 1.4 - 2.5 mg/dL Blood 03/29/2024 2:30 AM EMAIL PRODUCER 03/29/2024 3:58 AM EMAIL PRODUCER Radha Myles MD LAB BLOOD ORDERABLES Final Result Performing Organization Address City/[facility] Co de Phone Number [facility] Department [place] [address] * (ABNORMAL) Lipid panel (03/29/2024 2:30 AM EMAIL PRODUCER) [facility] Cholesterol 104 30 - 199 mg/dL Comment: [...] revised on 2017. Triglycerides 115 <=149 mg/dL [facility] Comment: Interpretive Data Ages < or [...] revised on 2017. HDL 26(L) >=40 mg/dL [facility] Comment: Interpretive Data Ages < or = [...] on 2017. LDL, calculated 57 <=129 mg/dL [facility] Comment: Interpretive Data Ages < or [...] 3. Saul Lynn et al. GAUDENCIO Cardiol. 2020 June 15;5(5):540-548. doi: [email or web address].2020.0013 Current Interpretive Data was last revised on 2023. Non-HDL Cholesterol 78 mg/dL [facility] Comment: Interpretive Data Ages < or [...] last revised on 2017. Chol/HDL ratio 4 [facility] Blood 03/29/2024 2:30 AM EMAIL PRODUCER 03/29/2024 3:58 AM EMAIL PRODUCER us Yakov Yousif MD PhD LAB BLOOD ORDERABLES Fin al Result [facility] [place] [address] * (ABNORMAL) Comprehensive metabolic panel (03/29/2024 2:30 AM EMAIL PRODUCER) Sodium 137 135 - 145 mmol/L Potassium, pl 4.1 3.3 - 4.9 mmol/L [facility] Chloride 106 97 - 110 mmol/L [facility] CO2 24 22 - 32 mmol/L [facility] Anion gap 7 2 - 15 mmol/L [facility] BUN 31(H) 6 - 25 mg/dL [facility] Creatinine 1.01 0.80 - 1.30 mg/dL [facility] Glucose 127 70 - 199 mg/dL [facility] Comment: Interpretive Data Fasting glucose >/= 126 [...] 2022. Calcium 8.2(L) 8.5 - 10.3 mg/dL [facility] Bilirubin, total 0.3 0.1 - 1.2 mg/dL [facility] Protein, pl 6.5 6.5 - 8.5 g/dL [facility] Albumin 3.1(L) 3.5 - 5.0 g/dL [facility] Alk phos 69 40 - 130 Units/L [facility] ALT 22 7 - 55 Units/L [facility] AST 36 10 - 50 Units/L [facility] Blood 03/29/2024 2:3 0 AM EMAIL PRODUCER 03/29/2024 3:58 AM EMAIL PRODUCER us Radha Myles MD LAB BLOOD ORDERABLES Final Result [facility] [place] [address] * CT Chest Abdomen Pelvis W Contrast (03/28/2024 9:05 PM EMAIL PRODUCER) Anatomical Region Laterality Modality Body N/A Computed Tomogra phy 03/28/2024 9:41 PM EMAIL PRODUCER Impressions 03/29/2024 7:09 AM EMAIL PRODUCER 1. Decreased tree-in-bud nodularity and consolidation throughout [...] Anjel Olivares M.D. Narrative 03/29/2024 7:09 AM EMAIL PRODUCER EXAMINATION: CT CHEST ABDOMEN PELVIS W CONTRAST [...] * Blood culture Blood (03/28/2024 8:13 PM EMAIL PRODUCER) Report Final Report: No growth Blood 03/28/2024 8:13 PM EMAIL PRODUCER 03/28/2024 8:47 PM EMAIL PRODUCER Narrative [facility] - 04/02/2024 7:00 AM EMAIL PRODUCER 1. Blood cultures are incubated for 4 [...] performance characteristics have been verified by the [facility]. For questions about this culture, contact the Microbiology Laboratory at [phone]. Interpretive data was last revised on 23. Dona Mcnamara MD LAB MICROBIOLOGY - GENERAL ORDERABLES Final Result [facility] Department [place] [address] * Blood culture Blood (03/28/2024 8:13 PM EMAIL PRODUCER) Report Final Report: No growth Blood 03/28/2024 8:13 PM EMAIL PRODUCER 03/28/2024 8:47 PM EMAIL PRODUCER Narrative [facility] - 04/02/2024 7:00 AM EMAIL PRODUCER 1. Blood cultures are incubated for 4 [...] performance characteristics have been verified by the [facility]. For questions about this culture, contact the Microbiology Laboratory at [phone]. Interpretive data was last revised on 23. Dona Mcnamara MD LAB MICROBIOLOGY - GENERAL ORDERABLES Final Result Performing Organization Address City/[facility]/ZIP Co de Phone Number [facility] Department [place] [address] * POC Blood Gas and Chemistries, Arterial - (03/28/2024 7:51 PM EMAIL PRODUCER) [facility] Lactate, POC 0.9 0.7 - 2.0 mmol/L Blood 03/28/2024 7:51 PM EMAIL PRODUCER 03/28/2024 7:51 PM EMAIL PRODUCER Kevin Flynn MD LAB POCT ORDERABLES - DEV ICE Final Result [facility] Department of [employer] [place] [address] * eGFR (03/28/2024 7:47 PM EMAIL PRODUCER) [facility] eGFR 74 >=60 mL/min/1. 73 m2 Comment: [...] of Race in Diagnosing Kidney Disease, JASN 202). The CKD-EPI equation should not be used for patients with unstable renal function and has not been validated in children and those over 70. Current interpretive data was last reviewed 2020. Blood 03/28/2024 7:47 PM EMAIL PRODUCER 03/28/2024 8:09 PM EMAIL PRODUCER us Dona Mcnamara MD LAB BLOOD ORDERAB LES Final Result [facility] Department [place] [address] * (ABNORMAL) Differential, auto (03/28/2024 7:47 PM EMAIL PRODUCER) Pathologist [facility] Neutrophil abs 3.1 1.5 - 6.5 K/cumm Imm gran abs 0.0 0.0 - 0.1 K/cumm [facility] Lymphocyte abs 0.4(L) 0.8 - 3.3 K/cumm [facility] Monocyte abs 0.4 0.2 - 0.8 K/cumm [facility] Eosinophil abs 0.0 0.0 - 0.5 K/cumm [facility] Basophil abs 0.0 0.0 - 0.1 K/cumm [facility] Neutrophil pct 79.4 % [facility] Comment: Interpretive Data Percent cell count reference ranges are not reported, since discordance with absolute values may lead to misinterpretation of CBC data. Current Interpretive Data was last revised on 2017. Imm gran pct 0.3 % [facility] Comment: Interpretive Data Percent cell count reference ranges are not reported, since discordance with absolute values may lead to misinterpretation of CBC data. Current Interpretive Data was last revised on 2017. Lymphocyte pct 11.3 % [facility] Comment: Interpretive Data Percent cell count reference ranges are not reported, since discordance with absolute values may lead to misinterpretation of CBC data. Current Interpretive Data was last revised on 2017. Monocyte pct 9.0 % [facility] Comment: Interpretive Data Percent cell count reference ranges are not reported, since discordance with absolute values may lead to misinterpretation of CBC data. Current Interpretive Data was last revised on 2017. Eosinophil pct 0.0 % [facility] Comment: Interpretive Data Percent cell count reference ranges are not reported, since discordance with absolute values may lead to misinterpretation of CBC data. Current Interpretive Data was last revised on 2017. Basophil pct 0.0 % [facility] Comment: Interpretive Data Percent cell count reference ranges are not reported, since discordance with absolute values may lead to misinterpretation of CBC data. Current Interpretive Data was last revised on 2017. Blood 03/28/2024 7:47 PM EMAIL PRODUCER 03/28/2024 8:08 PM EMAIL PRODUCER Dona Mcnamara MD LAB BLOOD ORDERAB LES Final Result [facility] Department [place] [address] * (ABNORMAL) Respiratory pathogen panel Nasopharyngeal (03/28/2024 7:47 PM EMAIL PRODUCER) Pathologist [facility] Influenza A/2009 RNA Detected(A) Not Detected Influenza B RNA Not Detected Not Detected [facility] RSV RNA Detected(A) Not Detected [facility] COVID-19 RNA Not Detected Not Detected [facility] Coronavirus 229E RNA Not Detected Not Detected [facility] Coronavirus HKU1 RNA Not Detected Not Detected [facility] Coronavirus NL63 RNA Not Detected Not Detected [facility] Coronavirus OC43 RNA Not Detected Not Detected [facility] Adenovirus DNA Not Detected Not Detected [facility] Metapneumovirus RNA Not Detected Not Detected [facility] Rhinovirus/Enterov irus RNA Not Detected Not Detected [facility] Parainfluenza 1 RNA Not Detected Not Detected [facility] Parainfluenza 2 RNA Not Detected Not Detected [facility] Parainfluenza 3 RNA Not Detected Not Detected [facility] Parainfluenza 4 RNA Not Detected Not Detected [facility] B. pertussis DNA Not Detected Not Detected [facility] B. parapertussis DNA Not Detected Not Detected [facility] C. pneumoniae DNA Not Detected Not Detected [facility] M. pneumoniae DNA Not Detected Not Detected [facility] Nasopharyngeal 03/28/2024 7: 47 PM EMAIL PRODUCER 03/28/2024 7:59 PM EMAIL PRODUCER Narrative [facility] - 03/28/2024 9:15 PM EMAIL PRODUCER Is the Patient experiencing symptoms consistent with COVID?->Yes Surveillance testing for transplant patient?->No Interpretive Data The [employer] FilmArray Respiratory Panel (RP2.1) assay is a [...] assay has FDA clearance for testing of OVERHEAD CRANE OPERATOR swabs. The performance of additional specimen types has been assessed by the performing laboratory. The performance characteristics of this assay have been determined by [facility]. Current interpretive data was last revised on 21. Dona Mcnamara MD LAB MICROBIOLOGY - GENERAL ORDERABLES Final Result [facility] Department [place] [address] * (ABNORMAL) CBC with auto differential (03/28/2024 7:47 PM EMAIL PRODUCER) WBC 3.9 3.8 - 9.9 K/cumm Hgb 10.0(L) 13.0 - 17.5 g/dL [facility] Hct 30.9(L) 38.9 - 50.3 % [facility] Plt 202 150 - 400 K/cumm [facility] MPV 9.9 9.1 - 12.3 fL [facility] RBC 3.76(L) 4.30 - 5.80 M/cumm [facility] MCV 82.2 81.3 - 96.4 fL [facility] MCH 26.6(L) 27.1 - 33.3 pg [facility] MCHC 32.4 32.3 - 35.7 g/dL [facility] RDW CV 17.6(H) 11.1 - 14.9 % [facility] RDW SD 53.4(H) 35.7 - 48.1 fL [facility] NRBC abs 0.00 0.00 - 0.01 K/cumm [facility] Blood 03/28/2024 7:47 PM EMAIL PRODUCER 03/28/2024 8:08 PM EMAIL PRODUCER Dona Mcnamara MD LAB BLOOD ORDERAB LES Final Result Performing Organization Address [facility] de Phone Number [facility] Department [place] [address] * Protime-INR (03/28/2024 7:47 PM EMAIL PRODUCER) Pathologist [facility] PT 12.9 9.7 - 13.0 sec INR 1.19 0.90 - 1.20 [facility] Comment: Interpretive data Oral anticoagulant therapeutic ranges: Venous thromboembolism prophylaxis or treatment: 2.0-3.0 CARDIOLOGY Standard range: 2.0-3.0 High-intensity range: 2.5-3.5 Refer to indication-specific guidelines for appropriate target ranges for prosthetic heart valve replacement. Current interpretive data was last revised on 2019. Blood 03/28/2024 7:47 PM EMAIL PRODUCER 03/28/2024 8:11 PM EMAIL PRODUCER Dona Mcnamara MD LAB BLOOD ORDERAB LES Final Result Performing Organization Address [facility] Co de Phone Number [facility] Department [place] [address] * (ABNORMAL) Comprehensive metabolic panel (03/28/2024 7:47 PM EMAIL PRODUCER) Pathologist [facility] Sodium 136 135 - 145 mmol/L Potassium, pl 4.2 3.3 - 4.9 mmol/L [facility] Chloride 102 97 - 110 mmol/L [facility] CO2 24 22 - 32 mmol/L [facility] Anion gap 10 2 - 15 mmol/L [facility] BUN 37(H) 6 - 25 mg/dL [facility] Creatinine 1.10 0.80 - 1.30 mg/dL [facility] Glucose 130 70 - 199 mg/dL [facility] Comment: Interpretive Data Fasting glucose >/= 126 [...] 2022. Calcium 8.8 8.5 - 10.3 mg/dL [facility] Bilirubin, total 0.3 0.1 - 1.2 mg/dL [facility] Protein, pl 7.0 6.5 - 8.5 g/dL [facility] Albumin 3.4(L) 3.5 - 5.0 g/dL [facility] Alk phos 76 40 - 130 Units/L [facility] ALT 22 7 - 55 Units/L [facility] AST 39 10 - 50 Units/L [facility] Blood 03/28/2024 7:47 PM EMAIL PRODUCER 03/28/2024 8:09 PM EMAIL PRODUCER us Dona Mcnamara MD LAB BLOOD ORDERAB LES Final Result [facility] Department [place] [address] * RAD ONC ARIA SESSION SUMMARY (03/21/2024 11:15 AM EMAIL PRODUCER) Course Name C5_R_Lung_ 25 ARIA Course Plan Date 03/07/2024 6:33 AM ARIA Elapsed Days 6 ARIA Treatment Start Date 03/15/2024 ARIA Treatment Site R LUNG_1999 ARIA Dose Given To Date (cGy) 2,000 ARIA Session Dosage Given (cGy) 400 ARIA Plan ID RT LUNG ARIA Fractions Treated 5 ARIA Prescribed Dose Per Fraction (cGy) 400 ARIA Prescribed Total Dose (cGy) 2,000 ARIA 03/21/2024 11:1 5 AM EMAIL PRODUCER us Not In File Miscellaneous RADIATION ONCOLOGY ORD ERABLES Final Result DANIAL * RAD ONC ARIA SESSION SUMMARY (03/20/2024 11:04 AM EMAIL PRODUCER) Course Name C5_R_Lung_ 25 ARIA Course Plan [...] (cGy) 2,000 ARIA 03/20/2024 11:0 4 AM EMAIL PRODUCER us Not In File Miscellaneous RADIATION ONCOLOGY ORD ERABLES Final Result Performing Organization Address City/[facility] Co de Phone Number ARIJessica * RAD ONC ARIA SESSION SUMMARY (03/17/2024 11:17 AM EMAIL PRODUCER) Course Name C5_R_Lung_ 25 ARIA Course Plan [...] (cGy) 2,000 ARIA 03/17/2024 11:1 7 AM EMAIL PRODUCER us Not In File Miscellaneous RADIATION ONCOLOGY ORD ERABLES Final Result TUSHARA * RAD ONC ARIA SESSION SUMMARY (03/16/2024 11:06 AM EMAIL PRODUCER) Course Name C5_R_Lung_ 25 ARIA Course Plan Date 03/07/2024 6:33 AM ARIA Elapsed Days 1 ARIA Treatment Start Date 03/15/2024 ARIA Treatment Site R LUNG_1999 ARIA Dose Given To Date (cGy) 800 ARIA Session Dosage Given (cGy) 400 ARIA Plan ID RT LUNG ARIA Fractions Treated 2 ARIA Prescribed Dose Per Fraction (cGy) 400 ARIA Prescribed Total Dose (cGy) 2,000 ARIA 03/16/2024 11:0 6 AM EMAIL PRODUCER us Not In File Miscellaneous RADIATION ONCOLOGY ORD ERABLES Final Result DANIAL * RAD ONC ARIA SESSION SUMMARY (03/15/2024 2:01 PM EMAIL PRODUCER) Course Name C5_R_Lung_ 25 ARIA Course Plan Date 03/07/2024 6:33 AM ARIA Elapsed Days 0 ARIA Treatment Start Date 03/15/2024 ARIA Treatment Site R LUNG_1999 ARIA Dose Given To Date (cGy) 400 ARIA Session Dosage Given (cGy) 400 ARIA Plan ID RT LUNG ARIA Fractions Treated 1 ARIA Prescribed Dose Per Fraction (cGy) 400 ARIA Prescribed Total Dose (cGy) 2,000 ARIA 03/15/2024 2:01 PM EMAIL PRODUCER us Not In File Miscellaneous RADIATION ONCOLOGY ORD ERABLES Final Result ARIA * eGFR (03/06/2024 11:52 AM EMAIL PRODUCER) eGFR >90 >=60 mL/min/1. 73 m2 Comment: [...] of Race in Diagnosing Kidney Disease, JASN 202). The CKD-EPI equation should not be used for patients with unstable renal function and has not been validated in children and those over 70. Current interpretive data was last reviewed 2020. Blood 03/06/2024 11:5 2 AM EMAIL PRODUCER 03/06/2024 11:54 AM EMAIL PRODUCER us Yakov Yousif MD PhD LAB BLOOD ORDERABLES Fin al Result [facility] Department [place] [address] * Differential, auto (03/06/2024 11:52 AM EMAIL PRODUCER) Neutrophil abs 3.5 1.5 - 6.5 K/cumm Comment:Testing performed by : [facility], [address] [place], [place] [phone] Lymphocyte abs 1.1 0.8 - 3.3 K/cumm CERNER BJ Comment:Testing performed by : [facility], [address] [place], [place] [phone] Monocyte abs 0.6 0.2 - 0.8 K/cumm CERNER BJ Comment:Testing performed by : [facility], [address] [place] [address] Eosinophil abs 0.1 0.0 - 0.5 K/cumm CERNER BJ Comment:Testing performed by : [facility], [address] [place] [phone] Basophil abs 0.1 0.0 - 0.1 K/cumm CERNER BJ Comment:Testing performed by : [facility], [address] [place], [place] [phone] Neutrophil pct 65.0 % CERNER BJ Comment: Interpretive Data Percent cell count reference ranges are not reported, since discordance with absolute values may lead to misinterpretation of CBC data. Current Interpretive Data was last revised on 2017. Testing performed by: [facility], [address] [place] [phone] Lymphocyte pct 20.0 % CERAMANDA DE SANTIAGO Comment: Interpretive Data Percent cell count reference ranges are not reported, since discordance with absolute values may lead to misinterpretation of CBC data. Current Interpretive Data was last revised on 2017. Testing performed by: [facility], [address] [place] [phone] Monocyte pct 11.4 % LOLI DE SANTIAGO Comment: Interpretive Data Percent cell count reference ranges are not reported, since discordance with absolute values may lead to misinterpretation of CBC data. Current Interpretive Data was last revised on 2017. Testing performed by: [facility], [address] [place] [phone] Eosinophil pct 2.3 % LOLI DE SANTIAGO Comment: Interpretive Data Percent cell count reference ranges are not reported, since discordance with absolute values may lead to misinterpretation of CBC data. Current Interpretive Data was last revised on 2017. Testing performed by: [facility], [address] [place] [phone] Basophil pct 1.3 % LOLI DE SANTIAGO Comment: Interpretive Data Percent cell count reference ranges are not reported, since discordance with absolute values may lead to misinterpretation of CBC data. Current Interpretive Data was last revised on 2017. Testing performed by: [facility], [address] [place] [phone] Blood 03/06/2024 11:5 2 AM EMAIL PRODUCER 03/06/2024 11:53 AM EMAIL PRODUCER us Yakov Yousif MD PhD LAB BLOOD ORDERABLES Fin al Result LOLI MCCARTY [facility] Department [place] [address] * (ABNORMAL) CBC with auto differential (03/06/2024 11:52 AM EMAIL PRODUCER) WBC 5.4 3.8 - 9.9 K/cumm Comment:Testing performed by : [facility], [address] [place] [address] Hgb 11.1(L) 13.0 - 17.5 g/dL CERNER BJ Comment:Testing performed by : [facility], [address] [place] [address] Hct 34.0(L) 38.9 - 50.3 % CERNER BJ Comment:Testing performed by : [facility], [address] [place] [address] Plt 324 150 - 400 K/cumm CERNER BJ Comment:Testing performed by : [facility], [address] [place] [address] MPV 7.9 6.8 - 10.4 fL CERNER BJ Comment:Testing performed by : [facility], [address] [place], [place] [phone] RBC 4.14(L) 4.30 - 5.80 M/cumm CERNER BJ Comment:Testing performed by : [facility], [address] [place] [address] MCV 82.1 81.3 - 96.4 fL CERNER BJ Comment:Testing performed by : [facility], [address] [place], [place] [phone] MCH 26.7(L) 27.1 - 33.3 pg CERNER BJ Comment:Testing performed by : [facility], [address] [place] [address] MCHC 32.6 32.3 - 35.7 g/dL CERNER BJ Comment:Testing performed by : [facility], [address] [place] [address] RDW CV 18.8(H) 11.1 - 14.9 % CERNER BJ Comment:Testing performed by : [facility], [address] [place] [address] NRBC abs 0.00 0.00 - 0.01 K/cumm CERNER BJ Comment:Testing performed by : [facility], [address] [place], [place] [phone] Blood 03/06/2024 11:5 2 AM EMAIL PRODUCER 03/06/2024 11:53 AM EMAIL PRODUCER Yakov Yousif MD PhD LAB BLOOD ORDERABLES Fin al Result Performing Organization Address [facility] [place] [place] [address] * Phosphorus (03/06/2024 11:52 AM EMAIL PRODUCER) Pathologist [facility] Phosphorus, pl 3.0 2.3 - 4.5 mg/dL Blood 03/06/2024 11:5 2 AM EMAIL PRODUCER 03/06/2024 11:54 AM EMAIL PRODUCER Yakov Yousif MD PhD LAB BLOOD ORDERABLES Fin al Result Performing Organization Address [facility] [place] [address] * Comprehensive metabolic panel (03/06/2024 11:52 AM EMAIL PRODUCER) Pathologist [facility] Sodium 136 135 - 145 mmol/L Potassium, pl 4.8 3.3 - 4.9 mmol/L [facility] Chloride 104 97 - 110 mmol/L [facility] CO2 27 22 - 32 mmol/L [facility] Anion gap 5 2 - 15 mmol/L [facility] BUN 21 6 - 25 mg/dL [facility] Creatinine 0.87 0.80 - 1.30 mg/dL [facility] Glucose 108 70 - 199 mg/dL [facility] Comment: Interpretive Data Fasting glucose >/= 126 [...] 2022. Calcium 9.0 8.5 - 10.3 mg/dL [facility] Bilirubin, total 0.3 0.1 - 1.2 mg/dL [facility] Protein, pl 7.0 6.5 - 8.5 g/dL [facility] Albumin 3.6 3.5 - 5.0 g/dL [facility] Alk phos 124 40 - 130 Units/L CERNER B[facility] ALT 27 7 - 55 Units/L C[facility]ER [facility] AST 27 10 - 50 Units/L [facility] Blood 03/06/2024 11:5 2 AM EMAIL PRODUCER 03/06/2024 11:54 AM EMAIL PRODUCER us Yakov Yousif MD PhD LAB BLOOD ORDERABLES Fin al Result [facility] Department [place] [address] * eGFR (03/01/2024 1:06 AM EMAIL PRODUCER) eGFR >90 >=60 mL/min/1. 73 m2 Comment: [...] of Race in Diagnosing Kidney Disease, JASN 202). The CKD-EPI equation should not be used for patients with unstable renal function and has not been validated in children and those over 70. Current interpretive data was last reviewed 2020. Blood 03/01/2024 1:06 AM EMAIL PRODUCER 03/01/2024 1:22 AM EMAIL PRODUCER us Tamika Johnson MD LAB BLOOD ORDERABLES Fi nal Result [facility] Department [place] [address] * Differential, auto (03/01/2024 1:06 AM EMAIL PRODUCER) Neutrophil abs 3.8 1.5 - 6.5 K/cumm Imm gran abs 0.0 0.0 - 0.1 K/cumm [facility] Lymphocyte abs 0.9 0.8 - 3.3 K/cumm [facility] Monocyte abs 0.8 0.2 - 0.8 K/cumm [facility] Eosinophil abs 0.1 0.0 - 0.5 K/cumm [facility] Basophil abs 0.0 0.0 - 0.1 K/cumm [facility] Neutrophil pct 66.9 % [facility] Comment: Interpretive Data Percent cell count reference ranges are not reported, since discordance with absolute values may lead to misinterpretation of CBC data. Current Interpretive Data was last revised on 2017. Imm gran pct 0.4 % [facility] Comment: Interpretive Data Percent cell count reference ranges are not reported, since discordance with absolute values may lead to misinterpretation of CBC data. Current Interpretive Data was last revised on 2017. Lymphocyte pct 16.8 % [facility] Comment: Interpretive Data Percent cell count reference ranges are not reported, since discordance with absolute values may lead to misinterpretation of CBC data. Current Interpretive Data was last revised on 2017. Monocyte pct 13.4 % [facility] Comment: Interpretive Data Percent cell count reference ranges are not reported, since discordance with absolute values may lead to misinterpretation of CBC data. Current Interpretive Data was last revised on 2017. Eosinophil pct 2.0 % [facility] Comment: Interpretive Data Percent cell count reference ranges are not reported, since discordance with absolute values may lead to misinterpretation of CBC data. Current Interpretive Data was last revised on 2017. Basophil pct 0.5 % [facility] Comment: Interpretive Data Percent cell count reference ranges are not reported, since discordance with absolute values may lead to misinterpretation of CBC data. Current Interpretive Data was last revised on 2017. Blood 03/01/2024 1:06 AM EMAIL PRODUCER 03/01/2024 1:22 AM EMAIL PRODUCER us Tamika Johnson MD LAB BLOOD ORDERABLES Fi nal Result Performing Organization Address [facility] Co de Phone Number [facility] Department [place] [address] * (ABNORMAL) CBC with auto differential (03/01/2024 1:06 AM EMAIL PRODUCER) WBC 5.6 3.8 - 9.9 K/cumm Hgb 10.1(L) 13.0 - 17.5 g/dL [facility] Hct 31.6(L) 38.9 - 50.3 % [facility] Plt 272 150 - 400 K/cumm [facility] MPV 10.3 9.1 - 12.3 fL [facility] RBC 3.79(L) 4.30 - 5.80 M/cumm [facility] MCV 83.4 81.3 - 96.4 fL [facility] MCH 26.6(L) 27.1 - 33.3 pg [facility] MCHC 32.0(L) 32.3 - 35.7 g/dL [facility] RDW CV 17.9(H) 11.1 - 14.9 % [facility] RDW SD 54.4(H) 35.7 - 48.1 fL [facility] NRBC abs 0.00 0.00 - 0.01 K/cumm [facility] Blood 03/01/2024 1:06 AM EMAIL PRODUCER 03/01/2024 1:22 AM EMAIL PRODUCER us Tamika Johnson MD LAB BLOOD ORDERABLES Fi nal Result Performing Organization Address [facility]/ZIP Co de Phone Number [facility] Department [place] [address] * Phosphorus (03/01/2024 1:06 AM EMAIL PRODUCER) Pathologist [facility] Phosphorus, pl 2.7 2.3 - 4.5 mg/dL Blood 03/01/2024 1:06 AM EMAIL PRODUCER 03/01/2024 1:22 AM EMAIL PRODUCER Tamika Johnson MD LAB BLOOD ORDERABLES Fi nal Result Performing Organization Address [facility] [place] [address] * Magnesium (03/01/2024 1:06 AM EMAIL PRODUCER) [facility] Magnesium 1.9 1.4 - 2.5 mg/dL Blood 03/01/2024 1:06 AM EMAIL PRODUCER 03/01/2024 1:22 AM EMAIL PRODUCER Tamika Johnson MD LAB BLOOD ORDERABLES Fi nal Result Performing Organization Address [facility] [place] [address] * Basic metabolic panel (03/01/2024 1:06 AM EMAIL PRODUCER) [facility] Sodium 136 135 - 145 mmol/L Potassium, pl 4.0 3.3 - 4.9 mmol/L [facility] Chloride 103 97 - 110 mmol/L [facility] CO2 25 22 - 32 mmol/L [facility] Anion gap 8 2 - 15 mmol/L [facility] BUN 19 6 - 25 mg/dL [facility] Creatinine 0.84 0.80 - 1.30 mg/dL [facility] Glucose 123 70 - 199 mg/dL [facility] Comment: Interpretive Data Fasting glucose >/= 126 [...] 2022. Calcium 8.9 8.5 - 10.3 mg/dL [facility] Blood 03/01/2024 1:06 AM EMAIL PRODUCER 03/01/2024 1:22 AM EMAIL PRODUCER us Tamika Johnson MD LAB BLOOD ORDERABLES Fi nal Result Performing Organization Address City/[facility]/ZIP Co de Phone Number [facility] Department [place] [address] * eGFR (02/29/2024 1:58 AM EMAIL PRODUCER) eGFR >90 >=60 mL/min/1. 73 m2 Comment: [...] last reviewed 2020. Blood 02/29/2024 1:58 AM EMAIL PRODUCER 02/29/2024 2:19 AM EMAIL PRODUCER us Tamika Johnson MD LAB BLOOD ORDERABLES Fi nal Result Performing Organization Address City/[facility]/ZIP Co de Phone Number [facility] Department [place] [address] * Differential, auto (02/29/2024 1:58 AM EMAIL PRODUCER) Neutrophil abs 4.8 1.5 - 6.5 K/cumm Imm gran abs 0.0 0.0 - 0.1 K/cumm [facility] Lymphocyte abs 0.9 0.8 - 3.3 K/cumm [facility] Monocyte abs 0.7 0.2 - 0.8 K/cumm [facility] Eosinophil abs 0.2 0.0 - 0.5 K/cumm [facility] Basophil abs 0.0 0.0 - 0.1 K/cumm [facility] Neutrophil pct 72.4 % [facility] Comment: Interpretive Data Percent cell count reference ranges are not reported, since discordance with absolute values may lead to misinterpretation of CBC data. Current Interpretive Data was last revised on 2017. Imm gran pct 0.5 % [facility] Comment: Interpretive Data Percent cell count reference ranges are not reported, since discordance with absolute values may lead to misinterpretation of CBC data. Current Interpretive Data was last revised on 2017. Lymphocyte pct 13.5 % [facility] Comment: Interpretive Data Percent cell count reference ranges are not reported, since discordance with absolute values may lead to misinterpretation of CBC data. Current Interpretive Data was last revised on 2017. Monocyte pct 10.9 % [facility] Comment: Interpretive Data Percent cell count reference ranges are not reported, since discordance with absolute values may lead to misinterpretation of CBC data. Current Interpretive Data was last revised on 2017. Eosinophil pct 2.4 % [facility] Comment: Interpretive Data Percent cell count reference ranges are not reported, since discordance with absolute values may lead to misinterpretation of CBC data. Current Interpretive Data was last revised on 2017. Basophil pct 0.3 % [facility] Comment: Interpretive Data Percent cell count reference ranges are not reported, since discordance with absolute values may lead to misinterpretation of CBC data. Current Interpretive Data was last revised on 2017. Blood 02/29/2024 1:58 AM EMAIL PRODUCER 02/29/2024 2:18 AM EMAIL PRODUCER us Tamika Johnson MD LAB BLOOD ORDERABLES Fi nal Result Performing Organization Address [facility] Co de Phone Number [facility] Department [place] [address] * (ABNORMAL) CBC with auto differential (02/29/2024 1:58 AM EMAIL PRODUCER) WBC 6.6 3.8 - 9.9 K/cumm Hgb 10.5(L) 13.0 - 17.5 g/dL [facility] Hct 33.1(L) 38.9 - 50.3 % [facility] Plt 267 150 - 400 K/cumm [facility] MPV 10.4 9.1 - 12.3 fL [facility] RBC 3.88(L) 4.30 - 5.80 M/cumm [facility] MCV 85.3 81.3 - 96.4 fL [facility] MCH 27.1 27.1 - 33.3 pg [facility] MCHC 31.7(L) 32.3 - 35.7 g/dL [facility] RDW CV 17.8(H) 11.1 - 14.9 % [facility] RDW SD 55.9(H) 35.7 - 48.1 fL [facility] NRBC abs 0.00 0.00 - 0.01 K/cumm [facility] Blood 02/29/2024 1:58 AM EMAIL PRODUCER 02/29/2024 2:18 AM EMAIL PRODUCER us Tamika Johnson MD LAB BLOOD ORDERABLES Fi nal Result Performing Organization Address [facility]/ZIP Co de Phone Number [facility] Department of [place] [address] * Phosphorus (02/29/2024 1:58 AM EMAIL PRODUCER) Phosphorus, pl 3.0 2.3 - 4.5 mg/dL Blood 02/29/2024 1:58 AM EMAIL PRODUCER 02/29/2024 2:19 AM EMAIL PRODUCER Tamika Johnson MD LAB BLOOD ORDERABLES Fi nal Result [facility] [employer] [place] [address] * Magnesium (02/29/2024 1:58 AM EMAIL PRODUCER) Pathologist [facility] Magnesium 2.1 1.4 - 2.5 mg/dL Blood 02/29/2024 1:58 AM EMAIL PRODUCER 02/29/2024 2:19 AM EMAIL PRODUCER Tamika Johnson MD LAB BLOOD ORDERABLES Fi nal Result Performing Organization Address [facility] Co de Phone Number [facility] [place] [address] * Basic metabolic panel (02/29/2024 1:58 AM EMAIL PRODUCER) Pathologist [facility] Sodium 137 135 - 145 mmol/L Potassium, pl 4.2 3.3 - 4.9 mmol/L [facility] Chloride 105 97 - 110 mmol/L [facility] CO2 24 22 - 32 mmol/L [facility] Anion gap 8 2 - 15 mmol/L [facility] BUN 16 6 - 25 mg/dL [facility] Creatinine 0.90 0.80 - 1.30 mg/dL [facility] Glucose 125 70 - 199 mg/dL [facility] Comment: Interpretive Data Fasting glucose >/= 126 [...] 2022. Calcium 9.1 8.5 - 10.3 mg/dL [facility] Blood 02/29/2024 1:58 AM EMAIL PRODUCER 02/29/2024 2:19 AM EMAIL PRODUCER us Tamika Johnson MD LAB BLOOD ORDERABLES Fi nal Result [facility] Department [place] [address] * DRILL RUNNER HELPER Evaluate and Treat (FEES) (02/28/2024 4:08 PM EMAIL PRODUCER) Narrative [facility] - 02/28/2024 4:08 PM EMAIL PRODUCER Sophie Cortes SLP 02/28/2024 4:31 PM Speech-Language Pathology: Flexible Endoscopic [...] none listed in EMR PLOF: no previous DRILL RUNNER HELPER at this facility Current Diet Order: Regular diet Baseline Diet: Regular diet General Information Nabil Monson 02/28/24 DRILL RUNNER HELPER Received On: 02/28/24 General Observations: Pt alert [...] aspiration observe during this exam. No further DRILL RUNNER HELPER indicated. Assessment Details & Results Purpose and [...] Aspiration Scale-Thin: 1-Material does not enter airway Egan Scale-Vallecular Residue-Thin Liquids: None Egan Scale-Pyriform Sinus Residue-Thin Liquids: None Purees: Laryngeal Penetration: None Aspiration Present: No Penetration Aspiration Scale-Puree: 1-Material does not enter airway Egan Scale-Vallecular Residue-Puree: None Yelena Scale-Pyriform Sinus Residue-Puree: None Solids: Laryngeal Penetration: None Aspiration Present: No Penetration Aspiration Scale-Solids: 1-Material does not enter airway Egan Scale-Vallecular Residue-Solids: None Yelena Scale-Pyriform Sinus Residue-Solids: None Dysphagia Outcome and Severity Scale: Dysphagia Outcomes and Severity Scale: 7 Normal Levels 1 & 2 on the YAMILETH indicate need for nonoral nutrition. Treatment Treatment was not provided this date. Please reference care plan for treatment goals and details, if indicated. Plan DRILL RUNNER HELPER Frequency of Services during current admission: Discharge from this Service DRILL RUNNER HELPER Recommendation (Add'l Services): No further DRILL RUNNER HELPER indicated Next Visit Plan:No further ST warranted Additional Referrals: n/a Discharge Summary Statement If this is the last swallow therapy visit, this serves as the discharge summary. us Tamika Johnson MD DRILL RUNNER HELPER ORDERABLES Final R esult [facility] * aPTT (02/28/2024 11:35 AM EMAIL PRODUCER) aPTT 31 28 - 38 sec Comment: Interpretive Data Heparin therapeutic range: 66.0 - 100.0 seconds. Range based on correlation with therapeutic heparin activity range of 0.3 - 0.7 Units/mL. Current interpretive data was last revised on 2022. Blood 02/28/2024 11:3 5 AM EMAIL PRODUCER 02/28/2024 11:56 AM EMAIL PRODUCER Tamika Johnson MD LAB BLOOD ORDERABLES Fi nal Result Performing Organization Address [facility] Co de Phone Number [facility] [employer] [place] [address] * (ABNORMAL) Erythrocyte sedimentation rate (02/28/2024 11:35 AM EMAIL PRODUCER) Pathologist [facility] Erythrocyte sedimentation rate 68(H) 1 - 20 mm/hr Blood 02/28/2024 11:3 5 AM EMAIL PRODUCER 02/28/2024 12:10 PM EMAIL PRODUCER Tamika Johnson MD LAB BLOOD ORDERABLES Fi nal Result Performing Organization Address [facility] Phone Number [facility] [employer] [place] [address] * (ABNORMAL) Protime-INR (02/28/2024 11:35 AM EMAIL PRODUCER) PT 13.3(H) 9.7 - 13.0 sec INR 1.23(H) 0.90 - 1.20 [facility] Comment: Interpretive data Oral anticoagulant therapeutic ranges: Venous thromboembolism prophylaxis or treatment: 2.0-3.0 CARDIOLOGY Standard range: 2.0-3.0 High-intensity range: 2.5-3.5 Refer to indication-specific guidelines for appropriate target ranges for prosthetic heart valve replacement. Current interpretive data was last revised on 2019. Blood 02/28/2024 11:3 5 AM EMAIL PRODUCER 02/28/2024 11:56 AM EMAIL PRODUCER us Tamika Johnson MD LAB BLOOD ORDERABLES Fi nal Result Performing Organization Address City/[facility]/ZIP Co de Phone Number [facility] Department [place] [address] * (ABNORMAL) CRP (acute phase) (02/28/2024 11:35 AM EMAIL PRODUCER) CRP 118.6(H) <=10.0 mg/L Blood 02/28/2024 11:3 5 AM EMAIL PRODUCER 02/28/2024 12:08 PM EMAIL PRODUCER Tamika Johnson MD LAB BLOOD ORDERABLES Fi nal Result Performing Organization Address [facility] Phone Number [facility] Department [place] [address] * DRILL RUNNER HELPER Evaluation and Treatment (02/28/2024 11:06 AM EMAIL PRODUCER) Narrative Spohie Cortes SLP - 02/28/2024 11:06 AM EMAIL PRODUCER Sophie Cortes SLP 02/28/2024 1:27 PM Speech-Language Pathology: Clinical Bedside Swallow [facility] 68 y.o. male with fever of 104.9 [...] none listed in EMR PLOF: no previous DRILL RUNNER HELPER at this facility Current Diet Order:regular diet [...] MBS/FEES. Addendum at 1327: following discussion with , will pursue FEES to further assess for [...] Aspiration Risk: No aspiration risk (170-200) Plan DRILL RUNNER HELPER Frequency of Services during current admission: One-time visit (Discharge from this service) DRILL RUNNER HELPER Recommendation (Add'l Services): No further DRILL RUNNER HELPER indicated Further Assessment/Follow up Indicated: Recommendations: GI evaluation Next Visit Plan:No further ST warranted Additional Referrals: n/a Please reference care plan for treatment goals, if indicated. Discharge Summary Statement If this is the last swallow therapy visit, this serves as the discharge summary. Sridhar Manning MD DRILL RUNNER HELPER ORDERABLES Edited Resul t - Final * eGFR (02/28/2024 12:35 AM EMAIL PRODUCER) eGFR >90 >=60 mL/min/1. 73 m2 Comment: [...] reviewed 2020. Blood 02/28/2024 12:3 5 AM EMAIL PRODUCER 02/28/2024 1:02 AM EMAIL PRODUCER Sridhar Manning MD LAB BLOOD ORDERABLES Final R esult [facility] Department of Laboratories [place], [place] [id number] * Differential, auto (02/28/2024 12:35 AM EMAIL PRODUCER) Neutrophil abs 6.1 1.5 - 6.5 K/cumm Imm gran abs 0.0 0.0 - 0.1 K/cumm [facility] Lymphocyte abs 0.9 0.8 - 3.3 K/cumm [facility] Monocyte abs 0.7 0.2 - 0.8 K/cumm [facility] Eosinophil abs 0.1 0.0 - 0.5 K/cumm [facility] Basophil abs 0.0 0.0 - 0.1 K/cumm [facility] Neutrophil pct 77.9 % [facility] Comment: Interpretive Data Percent cell count reference ranges are not reported, since discordance with absolute values may lead to misinterpretation of CBC data. Current Interpretive Data was last revised on 2017. Imm gran pct 0.5 % [facility] Comment: Interpretive Data Percent cell count reference ranges are not reported, since discordance with absolute values may lead to misinterpretation of CBC data. Current Interpretive Data was last revised on 2017. Lymphocyte pct 10.9 % [facility] Comment: Interpretive Data Percent cell count reference ranges are not reported, since discordance with absolute values may lead to misinterpretation of CBC data. Current Interpretive Data was last revised on 2017. Monocyte pct 9.0 % [facility] Comment: Interpretive Data Percent cell count reference ranges are not reported, since discordance with absolute values may lead to misinterpretation of CBC data. Current Interpretive Data was last revised on 2017. Eosinophil pct 1.4 % [facility] Comment: Interpretive Data Percent cell count reference ranges are not reported, since discordance with absolute values may lead to misinterpretation of CBC data. Current Interpretive Data was last revised on 2017. Basophil pct 0.3 % [facility] Comment: Interpretive Data Percent cell count reference ranges are not reported, since discordance with absolute values may lead to misinterpretation of CBC data. Current Interpretive Data was last revised on 2017. Blood 02/28/2024 12:3 5 AM EMAIL PRODUCER 02/28/2024 1:02 AM EMAIL PRODUCER us Sridhar Manning MD LAB BLOOD ORDERABLES Final R esult [facility] One [facility] [place] [address] * (ABNORMAL) CBC with auto differential (02/28/2024 12:35 AM EMAIL PRODUCER) WBC 7.9 3.8 - 9.9 K/cumm Hgb 10.1(L) 13.0 - 17.5 g/dL [facility] Hct 32.3(L) 38.9 - 50.3 % [facility] Plt 246 150 - 400 K/cumm [facility] MPV 10.1 9.1 - 12.3 fL [facility] RBC 3.82(L) 4.30 - 5.80 M/cumm [facility] MCV 84.6 81.3 - 96.4 fL [facility] MCH 26.4(L) 27.1 - 33.3 pg [facility] MCHC 31.3(L) 32.3 - 35.7 g/dL [facility] RDW CV 18.1(H) 11.1 - 14.9 % [facility] RDW SD 55.5(H) 35.7 - 48.1 fL [facility] NRBC abs 0.00 0.00 - 0.01 K/cumm [facility] Blood 02/28/2024 12:3 5 AM EMAIL PRODUCER 02/28/2024 1:02 AM EMAIL PRODUCER us Sridhar Manning MD LAB BLOOD ORDERABLES Final R esult [facility] Department [place] [address] * Basic metabolic panel (02/28/2024 12:35 AM EMAIL PRODUCER) Sodium 138 135 - 145 mmol/L Potassium, pl 4.0 3.3 - 4.9 mmol/L [facility] Chloride 108 97 - 110 mmol/L [facility] CO2 22 22 - 32 mmol/L [facility] Anion gap 8 2 - 15 mmol/L [facility] BUN 15 6 - 25 mg/dL [facility] Creatinine 0.86 0.80 - 1.30 mg/dL [facility] Glucose 110 70 - 199 mg/dL [facility] Comment: Interpretive Data Fasting glucose >/= 126 [...] 2022. Calcium 8.5 8.5 - 10.3 mg/dL [facility] Blood 02/28/2024 12:3 5 AM EMAIL PRODUCER 02/28/2024 1:02 AM EMAIL PRODUCER Sridhar Manning MD LAB BLOOD ORDERABLES Final R esult [facility] Department [place] [address] * MRSA Only (Staphylococcus aureus) Culture Nasal (02/27/2024 5:06 AM EMAIL PRODUCER) Report Final Report: Negative Nasal 02/27/2024 5:06 AM EMAIL PRODUCER 02/27/2024 5:42 AM EMAIL PRODUCER Narrative [facility] - 02/28/2024 7:26 AM EMAIL PRODUCER Testing performed by [facility] Microbiology Laboratory ([phone]). Sridhar Manning MD LAB MICROBIOLOGY - GENERAL O RDERABLES Final Result Performing Organization Address City/[facility]/ZIP Co de Phone Number [facility] Department [place] [address] * (ABNORMAL) Pneumonia PCR Sputum (02/27/2024 4:21 AM EMAIL PRODUCER) C. pneumoniae DNA Not Detected Not Detected Legionella pneumophila DNA Not Detected Not Detected [facility] M. pneumoniae DNA Not Detected Not Detected [facility] Adenovirus DNA Not Detected Not Detected [facility] Coronavirus (229E, OC43, HKU1, NL63) RNA Not Detected Not Detected [facility] Metapneumovirus RNA Not Detected Not Detected [facility] Rhinovirus/Enterov irus RNA Not Detected Not Detected [facility] Influenza A RNA Not Detected Not Detected [facility] Influenza B RNA Not Detected Not Detected [facility] Parainfluenza virus (1-4) RNA Not Detected Not Detected [facility] RSV RNA Detected(A) Not Detected [facility] Sputum 02/27/2024 4:21 AM EMAIL PRODUCER 02/27/2024 8:48 AM EMAIL PRODUCER Narrative [facility] - 02/27/2024 10:20 AM EMAIL PRODUCER The BioFire Pneumonia Panel is a multiplexed [...] of this assay have been determined by [facility]. Current interpretive data was last revised on 2023. us Sridhar Manning MD LAB MICROBIOLOGY - GENERAL O RDERABLES Final Result [facility] One [facility] Department [place] [address] * (ABNORMAL) Pneumonia PCR with aerobic culture and Gram stain Sputum (02/27/2024 4:21 AM EMAIL PRODUCER) Direct Specimen Exam Molecular Analysis: Greater than or equal to 10^7 copies/mL Haemophilus influenzae Correlation of molecular analysis with final culture results is recommended. Direct Specimen Exam Stain: Few polymorphonuclear leukocytes seen. Few squamous epithelial cells seen. Moderate mixed bacterial bailey seen on Gram stain. [facility] Report Final Report: Growth indicates upper respiratory bailey. (.) [facility] Organism GROWTH INDICATES UPPER RESPIRATORY BAILEY. [facility] Sputum 02/27/2024 4:21 AM EMAIL PRODUCER 02/27/2024 6:10 AM EMAIL PRODUCER Narrative [facility] - 03/01/2024 6:49 AM EMAIL PRODUCER When rapid molecular testing results are reported, testing completed using the GaudenaArray Pneumonia Panel. This molecular assay detects: Acinetobacter [...] results and susceptibility testing is recommended. The [employer] VaccinesArray Pneumonia Panel is cleared by the [place] Food and Drug Administration and its performance characteristics have been confirmed by the [facility]. The performance of the FilmArray Pneumonia Panel has not been established for monitoring treatment of infection and bacterial nucleic acids may persist independent of organism viability. us Sridhar Manning MD LAB MICROBIOLOGY - GENERAL O RDERABLES Final Result [facility] Department [place] [address] * (ABNORMAL) Urinalysis reflex to microscopic and culture Urine (02/27/2024 2:56 AM EMAIL PRODUCER) Color, ur Straw Yellow Clarity, ur Clear Clear [facility] Specific gravity, ur >1.042(H) 1.003 - 1.030 [facility] pH, urine 6.5 [facility] Comment: Interpretive Data U rine pH is affected by diet, medications, systemic acid-base disturbances, and renal tubular function. pH may affect urinary stone formation. For example, urine pH below 6.0 may help reduce the tendency for calcium phosphate stones and pH greater than 6.0 may reduce the tendency for uric acid stone formation. Source: [facility] Current Interpretive Data was last revised on 2017 Protein, ur ql 1+(A) Negative [facility] Glucose, ur ql Negative Negative [facility] Ketones, ur Negative Negative [facility] Bilirubin, ur Negative Negative [facility] Blood, ur Negative Negative [facility] Urobilinogen, ur <2.0 <2.0 mg/dL [facility] Nitrite, ur Negative Negative [facility] Leukocyte esterase, ur Negative Negative [facility] UA reflex comment Reflex to microscopic UA will be performed. [facility] Urine 02/27/2024 2:56 AM EMAIL PRODUCER 02/27/2024 3:02 AM EMAIL PRODUCER Narrative [facility] - 02/27/2024 3:18 AM EMAIL PRODUCER If patient unable to urinate, straight cath us Johnny Garcia MD LAB MICROBIOLOGY - GENER AL ORDERABLES Final Result [facility] Department [place] [address] * (ABNORMAL) Urinalysis, microscopic only (02/27/2024 2:56 AM EMAIL PRODUCER) WBC, ur 0-5 0 - 5 /HPF RBC, ur 0-2 0 - 2 /HPF [facility] Epithelial cells, squamous, ur 1-5 0 - 5 /HPF [facility] Mucous, ur Present(A) [facility] Culture Reflex Comment Reflex conditions for urine culture (WBC >10) not met. [facility] Urine 02/27/2024 2:56 AM EMAIL PRODUCER 02/27/2024 3:02 AM EMAIL PRODUCER us Johnny Garcia MD LAB URINE ORDERABLES Fin al Result [facility] Department [place] [address] * CT Chest W Contrast (02/27/2024 1:14 AM EMAIL PRODUCER) Anatomical Region Laterality Modality Body N/A Computed Tomogra phy 02/27/2024 1:57 AM EMAIL PRODUCER Impressions 02/27/2024 5:58 AM EMAIL PRODUCER Enlarging right perihilar mass with resulting pulmonary [...] Chris Guardado M.D. Narrative 02/27/2024 5:58 AM EMAIL PRODUCER EXAMINATION: Computed tomography of the chest with [...] by: Chris Guardado M.D. Naomi Downs MD [facility] CT PROCEDURES Final Result * (ABNORMAL) Respiratory pathogen panel Nasopharyngeal (02/27/2024 12:15 AM EMAIL PRODUCER) Pathologist [facility] Influenza A RNA Not Detected Not Detected Influenza B RNA Not Detected Not Detected [facility] RSV RNA Detected(A) Not Detected [facility] COVID-19 RNA Not Detected Not Detected [facility] Coronavirus 229E RNA Not Detected Not Detected [facility] Coronavirus HKU1 RNA Not Detected Not Detected [facility] Coronavirus NL63 RNA Not Detected Not Detected [facility] Coronavirus OC43 RNA Not Detected Not Detected [facility] Adenovirus DNA Not Detected Not Detected [facility] Metapneumovirus RNA Not Detected Not Detected [facility] Rhinovirus/Enterov irus RNA Not Detected Not Detected [facility] Parainfluenza 1 RNA Not Detected Not Detected [facility] Parainfluenza 2 RNA Not Detected Not Detected [facility] Parainfluenza 3 RNA Not Detected Not Detected [facility] Parainfluenza 4 RNA Not Detected Not Detected [facility] B. pertussis DNA Not Detected Not Detected [facility] B. parapertussis DNA Not Detected Not Detected [facility] C. pneumoniae DNA Not Detected Not Detected [facility] M. pneumoniae DNA Not Detected Not Detected [facility] Nasopharyngeal 02/27/2024 12 :15 AM EMAIL PRODUCER 02/27/2024 1:24 AM EMAIL PRODUCER Narrative [facility] - 02/27/2024 2:34 AM EMAIL PRODUCER Is the Patient experiencing symptoms consistent with COVID?->Yes Surveillance testing for transplant patient?->No Interpretive Data The [employer] FilmArray Respiratory Panel (RP2.1) assay is a [...] assay has FDA clearance for testing of OVERHEAD CRANE OPERATOR swabs. The performance of additional specimen types has been assessed by the performing laboratory. The performance characteristics of this assay have been determined by [facility] Infectious Disease [facility]. Current interpretive data was last revised on 21. Naomi Downs MD LAB MICROBIOLOGY - GENER AL ORDERABLES Final Result [facility] Department [place] [address] * Blood culture Blood Peripheral (02/27/2024 12:15 AM EMAIL PRODUCER) Report Final Report: No growth Blood (Peripheral) 02/27/2024 12:15 AM EMAIL PRODUCER 02/27/2024 1:08 AM EMAIL PRODUCER Cathy ENNIS [facility] - 03/02/2024 7:00 AM EMAIL PRODUCER From a different site than #1. Draw [...] performance characteristics have been verified by the [facility] Microbiology Laboratory. For questions about this culture, contact the Microbiology Laboratory at [phone]. Interpretive data was last revised on 23. Naomi Downs MD LAB MICROBIOLOGY - GENER AL ORDERABLES Final Result [facility] Department [place] [address] * Blood culture Blood Peripheral (02/27/2024 12:15 AM EMAIL PRODUCER) Report Final Report: No growth Blood (Peripheral) 02/27/2024 12:15 AM EMAIL PRODUCER 02/27/2024 1:08 AM EMAIL PRODUCER Narrative [facility] - 03/02/2024 7:00 AM EMAIL PRODUCER Draw Blood cultures before administration of Antibiotics [...] performance characteristics have been verified by the [facility]. For questions about this culture, contact the Microbiology Laboratory at [phone]. Interpretive data was last revised on 23. Naomi Downs MD LAB MICROBIOLOGY - GENER AL ORDERABLES Final Result [facility] Department [place] [address] * POCT lactate (02/26/2024 10:05 PM EMAIL PRODUCER) Lactate POC i-STAT 1.0 0.7 - 2.2 mmol/L Blood 02/26/2024 10:0 5 PM EMAIL PRODUCER 02/26/2024 10:05 PM EMAIL PRODUCER us Notinfile Unknown LAB POCT ORDERABLES - DEVICE F inal Result Performing Organization Address [facility] Co de Phone Number [facility]I DE SANTIAG[facility] Department [place] [address] * XR Chest PA Lateral 2 Views (02/26/2024 10:02 PM EMAIL PRODUCER) Anatomical Region Laterality Modality Body, Chest N/A Computed Radiogr aphy 02/26/2024 10:2 9 PM EMAIL PRODUCER Impressions 02/27/2024 7:02 AM EMAIL PRODUCER FINDINGS/IMPRESSION: 2 views of the chest are [...] Chris Guardado M.D. Narrative 02/27/2024 7:02 AM EMAIL PRODUCER EXAMINATION: XR CHEST PA LATERAL 2 VIEWS [...] it. Electronically signed by: Chris Guardado M.D. us Johnny Garcia MD IMG XR PROCEDURES Final Result * eGFR (02/26/2024 9:53 PM EMAIL PRODUCER) eGFR 80 >=60 mL/min/1. 73 m2 Comment: [...] last reviewed 2020. Blood 02/26/2024 9:53 PM EMAIL PRODUCER 02/26/2024 10:07 PM EMAIL PRODUCER us Johnny Garcia MD LAB BLOOD ORDERABLES Fin al Result [facility] One [facility] Department [place] [address] * (ABNORMAL) Differential, auto (02/26/2024 9:53 PM EMAIL PRODUCER) Neutrophil abs 7.6(H) 1.5 - 6.5 K/cumm Imm gran abs 0.0 0.0 - 0.1 K/cumm [facility] Lymphocyte abs 1.0 0.8 - 3.3 K/cumm [facility] Monocyte abs 0.7 0.2 - 0.8 K/cumm [facility] Eosinophil abs 0.0 0.0 - 0.5 K/cumm [facility] Basophil abs 0.0 0.0 - 0.1 K/cumm [facility] Neutrophil pct 82.0 % [facility] Comment: Interpretive Data Percent cell count reference ranges are not reported, since discordance with absolute values may lead to misinterpretation of CBC data. Current Interpretive Data was last revised on 2017. Imm gran pct 0.4 % [facility] Comment: Interpretive Data Percent cell count reference ranges are not reported, since discordance with absolute values may lead to misinterpretation of CBC data. Current Interpretive Data was last revised on 2017. Lymphocyte pct 10.2 % [facility] [facility] Comment: Interpretive Data Percent cell count reference ranges are not reported, since discordance with absolute values may lead to misinterpretation of CBC data. Current Interpretive Data was last revised on 2017. Monocyte pct 7.1 % [facility] Comment: Interpretive Data Percent cell count reference ranges are not reported, since discordance with absolute values may lead to misinterpretation of CBC data. Current Interpretive Data was last revised on 2017. Eosinophil pct 0.1 % [facility] Comment: Interpretive Data Percent cell count reference ranges are not reported, since discordance with absolute values may lead to misinterpretation of CBC data. Current Interpretive Data was last revised on 2017. Basophil pct 0.2 % [facility] Comment: Interpretive Data Percent cell count reference ranges are not reported, since discordance with absolute values may lead to misinterpretation of CBC data. Current Interpretive Data was last revised on 2017. Blood 02/26/2024 9:53 PM EMAIL PRODUCER 02/26/2024 10:07 PM EMAIL PRODUCER Johnny Garcia MD LAB BLOOD ORDERABLES Fin al Result Performing Organization Address City/[facility]/ZIP Co de Phone Number [facility] Department [place] [address] * (ABNORMAL) CBC with auto differential (02/26/2024 9:53 PM EMAIL PRODUCER) WBC 9.3 3.8 - 9.9 K/cumm Hgb 11.2(L) 13.0 - 17.5 g/dL [facility] Hct 34.6(L) 38.9 - 50.3 % [facility] Plt 285 150 - 400 K/cumm [facility] MPV 10.0 9.1 - 12.3 fL [facility] RBC 4.20(L) 4.30 - 5.80 M/cumm [facility] MCV 82.4 81.3 - 96.4 fL [facility] MCH 26.7(L) 27.1 - 33.3 pg [facility] MCHC 32.4 32.3 - 35.7 g/dL [facility] RDW CV 18.1(H) 11.1 - 14.9 % [facility] RDW SD 55.0(H) 35.7 - 48.1 fL [facility] NRBC abs 0.00 0.00 - 0.01 K/cumm [facility] Blood 02/26/2024 9:53 PM EMAIL PRODUCER 02/26/2024 10:07 PM EMAIL PRODUCER Johnny Garcia MD LAB BLOOD ORDERABLES Fin al Result Performing Organization Address City/[facility]/ZIP Co de Phone Number [facility] Department [place] [address] * (ABNORMAL) Comprehensive metabolic panel (02/26/2024 9:53 PM EMAIL PRODUCER) Sodium 134(L) 135 - 145 mmol/L Potassium, pl 4.5 3.3 - 4.9 mmol/L [facility] Chloride 103 97 - 110 mmol/L [facility] CO2 20(L) 22 - 32 mmol/L [facility] Anion gap 11 2 - 15 mmol/L [facility] BUN 24 6 - 25 mg/dL [facility] Creatinine 1.03 0.80 - 1.30 mg/dL [facility] Glucose 157 70 - 199 mg/dL [facility] Comment: Interpretive Data Fasting glucose >/= 126 [...] 2022. Calcium 9.0 8.5 - 10.3 mg/dL [facility] Bilirubin, total 0.4 0.1 - 1.2 mg/dL [facility] Protein, pl 7.0 6.5 - 8.5 g/dL [facility] Albumin 3.8 3.5 - 5.0 g/dL [facility] Alk phos 148(H) 40 - 130 Units/L [facility] ALT 41 7 - 55 Units/L [facility] AST 38 10 - 50 Units/L [facility] Blood 02/26/2024 9:53 PM EMAIL PRODUCER 02/26/2024 10:07 PM EMAIL PRODUCER us Johnny Garcia MD LAB BLOOD ORDERABLES Fin al Result [facility] Department [place] [address] * Respiratory pathogen panel Nasopharyngeal Nares, left (02/07/2024 6:24 PM EMAIL PRODUCER) Pathologist [facility] Influenza A RNA Not Detected Not Detected Influenza B RNA Not Detected Not Detected [facility] RSV RNA Not Detected Not Detected [facility] COVID-19 RNA Not Detected Not Detected [facility] Coronavirus 229E RNA Not Detected Not Detected [facility] Coronavirus HKU1 RNA Not Detected Not Detected [facility] Coronavirus NL63 RNA Not Detected Not Detected [facility] Coronavirus OC43 RNA Not Detected Not Detected [facility] Adenovirus DNA Not Detected Not Detected [facility] Metapneumovirus RNA Not Detected Not Detected [facility] Rhinovirus/Enterov irus RNA Not Detected Not Detected [facility] Parainfluenza 1 RNA Not Detected Not Detected [facility] Parainfluenza 2 RNA Not Detected Not Detected [facility] Parainfluenza 3 RNA Not Detected Not Detected [facility] Parainfluenza 4 RNA Not Detected Not Detected [facility] B. pertussis DNA Not Detected Not Detected [facility] B. parapertussis DNA Not Detected Not Detected [facility] C. pneumoniae DNA Not Detected Not Detected [facility] M. pneumoniae DNA Not Detected Not Detected [facility] Nasopharyngeal (Nares, left) 02/07/2024 6:24 PM EMAIL PRODUCER 02/07/2024 6:53 PM EMAIL PRODUCER Narrative [facility] - 02/07/2024 8:27 PM EMAIL PRODUCER Is the Patient experiencing symptoms consistent with COVID?->Yes Surveillance testing for transplant patient?->No Interpretive Data The [employer] FilmArray Respiratory Panel (RP2.1) assay is a [...] assay has FDA clearance for testing of OVERHEAD CRANE OPERATOR swabs. The performance of additional specimen types has been assessed by the performing laboratory. The performance characteristics of this assay have been determined by [facility]. Current interpretive data was last revised on 21. us Yakov Yousif MD PhD LAB MICROBIOLOGY - [facility] ORDERABLES Final Result [facility] Department [place] [address] * eGFR (02/07/2024 12:15 PM EMAIL PRODUCER) eGFR >90 >=60 mL/min/1. 73 m2 Comment: [...] reviewed 2020. Blood 02/07/2024 12:1 5 PM EMAIL PRODUCER 02/07/2024 12:21 PM EMAIL PRODUCER us Yakov Yousif MD PhD LAB BLOOD ORDERABLES Fin al Result Performing Organization Address City/State/[facility] Co de Phone Number [facility] Department [place] [address] * (ABNORMAL) Differential, auto (02/07/2024 12:15 PM EMAIL PRODUCER) Neutrophil abs 4.5 1.5 - 6.5 K/cumm Comment:Testing performed by : [facility], [address] [place], [place] [phone] Lymphocyte abs 0.7(L) 0.8 - 3.3 K/cumm [facility] Comment:Testing performed by : [facility], [address] [place] [address] Monocyte abs 0.8 0.2 - 0.8 K/cumm [facility] Comment:Testing performed by : [facility], [address] [place] [address] Eosinophil abs 0.1 0.0 - 0.5 K/cumm [facility] Comment:Testing performed by : [facility], [address] [place] [phone] Basophil abs 0.0 0.0 - 0.1 K/cumm [facility] Comment:Testing performed by : [facility], [address] [place] [phone] Neutrophil pct 74.2 % [facility] Comment: Interpretive Data Percent cell count reference ranges are not reported, since discordance with absolute values may lead to misinterpretation of CBC data. Current Interpretive Data was last revised on 2017. Testing performed by: [facility], [address] [place] [phone] Lymphocyte pct 11.8 % [facility] Comment: Interpretive Data Percent cell count reference ranges are not reported, since discordance with absolute values may lead to misinterpretation of CBC data. Current Interpretive Data was last revised on 2017. Testing performed by: [facility], [address] [place] [phone] Monocyte pct 12.9 % [facility] Comment: Interpretive Data Percent cell count reference ranges are not reported, since discordance with absolute values may lead to misinterpretation of CBC data. Current Interpretive Data was last revised on 2017. Testing performed by: [facility], [address] [place] [phone] Eosinophil pct 1.0 % [facility] Comment: Interpretive Data Percent cell count reference ranges are not reported, since discordance with absolute values may lead to misinterpretation of CBC data. Current Interpretive Data was last revised on 2017. Testing performed by: [facility], [address] [place] [phone] Basophil pct 0.1 % [facility] Comment: Interpretive Data Percent cell count reference ranges are not reported, since discordance with absolute values may lead to misinterpretation of CBC data. Current Interpretive Data was last revised on 2017. Testing performed by: [facility], [address] [place] [phone] Blood 02/07/2024 12:1 5 PM EMAIL PRODUCER 02/07/2024 12:16 PM EMAIL PRODUCER us Yakov Yousif MD PhD LAB BLOOD ORDERABLES Fin al Result [facility] Department [place] [address] * (ABNORMAL) CBC with auto differential (02/07/2024 12:15 PM EMAIL PRODUCER) WBC 6.1 3.8 - 9.9 K/cumm Comment:Testing performed by : [facility], [address] [place] [address] Hgb 10.6(L) 13.0 - 17.5 g/dL [facility] Comment:Testing performed by : [facility], [address] [place] [address] Hct 33.2(L) 38.9 - 50.3 % [facility] Comment:Testing performed by : [facility], [address] [place] [address] Plt 267 150 - 400 K/cumm [facility] Comment:Testing performed by : [facility], [address] [place] [address] MPV 7.7 6.8 - 10.4 fL [facility] Comment:Testing performed by : [facility], [address] [place] [address] RBC 3.99(L) 4.30 - 5.80 M/cumm [facility] Comment:Testing performed by : [facility], [address] [place] [address] MCV 83.2 81.3 - 96.4 fL [facility] Comment:Testing performed by : [facility], [address] [place] [address] MCH 26.5(L) 27.1 - 33.3 pg [facility] Comment:Testing performed by : [facility], [address] [place] [address] MCHC 31.8(L) 32.3 - 35.7 g/dL [facility] Comment:Testing performed by : [facility], [address] [place] [address] RDW CV 19.9(H) 11.1 - 14.9 % [facility] Comment:Testing performed by : [facility], [address] [place] [phone] NRBC abs 0.00 0.00 - 0.01 K/cumm [facility] Comment:Testing performed by : [facility], [address] [place] [phone] Blood 02/07/2024 12:1 5 PM EMAIL PRODUCER 02/07/2024 12:16 PM EMAIL PRODUCER Yakov Yousif MD PhD LAB BLOOD ORDERABLES Fin al Result Performing Organization Address City/[facility]/ZIP Co de Phone Number [facility] Department [place] [address] * Phosphorus (02/07/2024 12:15 PM EMAIL PRODUCER) [facility] Phosphorus, pl 2.4 2.3 - 4.5 mg/dL Blood 02/07/2024 12:1 5 PM EMAIL PRODUCER 02/07/2024 12:21 PM EMAIL PRODUCER Yakov Yousif MD PhD LAB BLOOD ORDERABLES Fin al Result Performing Organization Address [facility] Co de Phone Number [facility] Department [place] [address] * (ABNORMAL) Comprehensive metabolic panel (02/07/2024 12:15 PM EMAIL PRODUCER) [facility] Sodium 135 135 - 145 mmol/L Potassium, pl 4.7 3.3 - 4.9 mmol/L [facility] Comment:Hemolyzed; Potassium value may be falsely elevated by as much as 0.6-1.0 mmol/L. Suggest redraw and reanalysis. Chloride 104 97 - 110 mmol/L [facility] CO2 26 22 - 32 mmol/L [facility] Anion gap 5 2 - 15 mmol/L [facility] BUN 19 6 - 25 mg/dL [facility] Creatinine 0.86 0.80 - 1.30 mg/dL [facility] Glucose 107 70 - 199 mg/dL [facility] Comment: Interpretive Data Fasting glucose >/= 126 [...] 2022. Calcium 8.7 8.5 - 10.3 mg/dL [facility] Bilirubin, total 0.4 0.1 - 1.2 mg/dL [facility] Protein, pl 6.6 6.5 - 8.5 g/dL [facility] Albumin 3.5 3.5 - 5.0 g/dL [facility] Alk phos 143(H) 40 - 130 Units/L [facility] ALT 63(H) 7 - 55 Units/L [facility] AST 68(H) 10 - 50 Units/L [facility] Comment:Hemolyzed; result ma y be falsely elevated Blood 02/07/2024 12:1 5 PM EMAIL PRODUCER 02/07/2024 12:21 PM EMAIL PRODUCER us Yakov Yousif MD PhD LAB BLOOD ORDERABLES Fin al Result [facility] [place] [address] * CT chest abdomen pelvis with contrast (02/07/2024 11:42 AM EMAIL PRODUCER) Anatomical Region Laterality Modality Body N/A Computed Tomogra phy 02/07/2024 12:2 8 PM EMAIL PRODUCER Impressions 02/07/2024 12:28 PM EMAIL PRODUCER 1. Enlarging right hilar mass/lymph node conglomerate [...] Gareth Cleaning M.D. 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 ADVANCE DIRECTIVE 05/29/2022 4:23 PM [...] 11:38 AM 09/06/2022 5:42 PM Care Teams Bill Collector Relationship Specialty Start Date End Date Chris Rondon MD [address] [place] [id number] PCP - General Family Medicine 12/08/23 Carlos Paz MD [address] [place] [address] [phone] Surgeon General Surgery 03/22/19 David Rehman MD [address] [place], [place] [id number] Surgeon Gastroenterology 05/23/19 Mae Recinos MD [address] [place] [address] [address] [place] [address] Radiation Oncologist Radiation Oncology 12/30/20 Areli Cordon MD [address] [place] [address] [phone] Consulting Physician Pulmonary Disease 01/23/22 Kevin Flynn MD [address] [address] Consulting Physician Medical Oncology 05/14/22 Yakov Yousif MD PhD [address] [address] Medical Oncologist/[facility] Medical Oncology 02/23/23
--- OUTSIDE RECORDS SUMMARY | 2024-05-01 08:32 | XMS_ITS ---
Author Organization [facility] Address [address] [place] [address] Care Team Providers Care Consulting Hr Professional Name Role Phone Carlos Paz MD Unavailable [phone] David Rehman MD Unavailable [phone] Mae Recinos MD Unavailable [phone] Areli Cordon MD Unavailable Kevin Flynn MD Unavailable [phone] Yakov Yousif MD PhD Unavailable [phone] Chris Rondon MD Primary Care Provider [phone] Active Problems Patient Care Coordination No te Formatting of this note is d ifferent from the original. BMT Inpatient Care Coordination [facility] Treatment Plan SURPASS Study Auto Cytotoxic T Lymphocyet cell [id number] Reason for Admission SURPASS 09/02 Transplant/IEC Planning BMT/IEC Plan HLA typing/IDMs [] Insurance Approval [] Discharge Planning Anticipated Discharge Date 09/06 Patient Education Completed [x] CAR-T dc ed to pt Issue to be Resolved Before Discharge Discharge Disposition Requests Sent to Case Management, Pharmacy PA Team, or Medical Assistants Post-Discharge Follow-Up Living Situation/Distance from [facility] Caregiver Lab/Transfusion Frequency Venous Access & Care tunneled central venous catheter Local Oncologist Contact Phone: Fax: Post-Discharge Office Visit (H30) ZXC 09/08 Miscellaneous Notes: Problem Noted Date Diagnosed Date Influenza A 03/29/2024 Assessment & Plan (03/29/2024 4:07 AM TRACK HELPER): RVP positive for influenza A on admission. - start tamiflu - supportive care Diarrhea 03/29/2024 Assessment & Plan (03/30/2024 9:59 AM TRACK HELPER): Improving Patient endorsing a few days of diarrhea. - check c diff and stool culture-negative - PRN imodium Severe protein-calorie malnutrition 03/29/2024 Fever, unspecified fever cause 02/27/2024 Assessment & Plan (02/28/2024 3:31 PM TRACK HELPER): Secondary to post-obstructive PNA (see plan above) Postobstructive pneumonia 02/27/2024 Assessment & Plan (03/01/2024 1:59 PM TRACK HELPER): - s/p recent course of Augmentin without [...] after eating, no aspiration per him though. [employer] c/s - looked ok on eval (rec'd [...] 02/27/2024 Assessment & Plan (02/28/2024 3:32 PM TRACK HELPER): - Continue home flomax - pt states he was previously on Tadalafil daily for BPH but states it was recently stopped - will hold off Pulmonary embolism 02/27/2024 Assessment & Plan (03/29/2024 4:07 AM TRACK HELPER): In 08/2021, additionally had DVT of RIJ in 2021. Failed xarelto and is currently on home therapeutic lovenox. - continue home lovenox Assessment & Plan (02/28/2024 3:32 PM TRACK HELPER): PE identified on CT 08/27/2021. 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 Previously on Xarelto. Due to failing DOAC and luminal GI cancer, he has been on therapeutic enoxaparin 1.5 mg/kg daily. - continue therapeutic lovenox Pneumonitis 02/27/2024 Assessment & Plan (02/28/2024 6:07 PM TRACK HELPER): Patient had recently diagnosed drug induced pneumonitis (on trial with MD Zimmerman (Phase 1, Part A1 dose escalation of [id number] (prodrug of interferon-alpha) monotherapy)) which requiring ICU [...] point - O2A prior to discharge - [employer] eval/FEES We will sign off. See separate summary of treatment note. Assessment & Plan (02/29/2024 4:13 PM TRACK HELPER): Grade 4. Secondary to Phase I [id number]. Required ICU admission with oxygen and pressers. [...] 09/01/2022 Assessment & Plan (03/29/2024 4:07 AM TRACK HELPER): Follows with Dr. Yousif. Dx 2021. Has had disease progression on multiple lines of therapy. S/p T-cell infusion on [employer] clinical trial then started on pembro with progression. Most recently, was on trial at [facility] with [id number] (prodrug of interferon-alpha) monotherapy with stable disease. However, subsequently developed pneumonitis requiring ICU admission and pressors. Since then, has received RT to RUL obstructing mass completed on 03/21/24. - med onc c/s Assessment & Plan (02/28/2024 3:31 PM TRACK HELPER): He was diagnosed in February 2019, received concurrent chemoradiation, then received 1L FOLFOX/ 5FU maintenance without progression for oligometastatic disease (oxaliplatin stopped due to neuropathy), then 2L as ramucirumab/ paclitaxel with progression, then 3L as pembrolizumab from December 2021 until June 2022 with progression. He was treated on [id number] (autologous CAR T cells), received T-cell infusion on 09/02/2022 followed by nivolumab then progressed on 11/27/22. He is not eligible for the optional 2nd T-cell infusion due to low tumor burden/inability to obtain biopsy (which is required to verify target antigen expression). In December 2022 he is not eligible for any non-phase 1 trials. On 12/21/2022 we proceeded with FOLFIRI C1. CT CAP 12/29/23 after 4 cycles showed disease progression on FOLFIRI. He started cycle 1 FOLFOX on 03/01/23. CT 04/22/23 after 4 cycles of FOLFOX showed disease progression. He started C1D1 Lonsurf on 05/03/23 then stopped Lonsurf and enrolled on [id number] (phase 1 of HPK1 Inhibitor [id number] anti-PD-1 tislelizumab) at [facility], cycle 1 day 1 on 06/04/2023. CT CAP 07/13/2023 showed stable disease. He completed [address] CAP 10/07/2023 showed disease progression. He enrolled in a Phase 1, Part A1 dose escalation of [id number] (prodrug of interferon-alpha) monotherapy at [facility] and started cycle 1 day 1 on [...] options - Pulm c/s as elsewhere - [employer] c/s Hilar mass 08/07/2022 Diastolic congestive heart failure 03/08/2022 Assessment & Plan (02/27/2024 5:00 AM TRACK HELPER): - G1DD with EF 62% on 11/2023 Echo - mild right leg edema Smoking greater than 30 pack years 03/08/2022 COPD (chronic obstructive pulmonary disease) Assessment & Plan (03/30/2024 9:59 AM TRACK HELPER): Patient reports nonadherence to home trelegy. -discussed in SOB Assessment & Plan (02/28/2024 3:29 PM TRACK HELPER): - hx of tobacco use for 40 years, quit. 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 01/16/2022 Anemia 10/23/2021 Assessment & Plan (03/30/2024 10:06 AM TRACK HELPER): Mixed picture of anemia of chronic disease and iron deficiency anemia -CTM Personal history of radiation therapy 12/30/2020 Malignant neoplasm metastatic to bone 04/24/2019 Persons encountering health services in other specified circumstances 03/22/2019 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 Denosumab (XGEVA) Injection* Plan Start Date:09/18/2021 Plan Provider:Faraz Baptiste Jr., MD Linked Problems Malignant neoplasm metastati c to bone (HCC)Malignant neoplasm of lower third of esophagus (HCC) Treatment Medications No medications scheduled. IV MAINTENANCE THERAPY PLAN* Plan Start Date:06/12/2021 Plan Provider:Faraz Baptiste Jr., MD Linked Problems Malignant neoplasm of lower third of esophagus (HCC) Treatment Medications No medications scheduled. Trifluridine/Tipiracil PO BID 28 days/cycle - GI* Plan Start Date:04/25/2023 Plan Provider:Yakov Yousif MD PhD Linked Problems Malignant neoplasm metastati c to bone (HCC)Malignant neoplasm of lower third of esophagus (HCC) Treatment Medications Current Day (Day 1 , Cycle 1 - Planned for 05/03/2023) Next Day (Day 15, Cycle 1 - Planned for 05/17/2023) No medications scheduled. No medications schedul ed. No medications scheduled. Other Current Plans ADULT BLOOD ADMINISTRATION FOR OUTPATIENT* Plan Start Date:10/23/2021 Plan Provider:Faraz Baptiste Jr., MD Linked Problems Anemia Treatment Medications No medications scheduled. Past Treatment and Therapy Plans Oncology Chemotherapy Treatment Plan Name Start Date Discontinue Date Treatment Medications Discontinue Reason Plan Provider Cycles mFOLFOX6: (Fluorouraci l / Leucovorin / Oxaliplatin) 14 Day Cycles - GI 024 04/26/2023 fluorouracil (ADRUCIL)fluorouracil (ADRUCIL) infusion - for home infusion (ADRUCIL)leucovorinleuc ovorin IVPB in 250 mLoxaliplatin (ELOXATIN)oxaliplatin (ELOXATIN) IVPB Progression Yakov Yousif MD PhD 4 of 12 cycles started FOLFIRI: (Fluorouraci l / Leucovorin / Irinotecan) 14 Day Cycles - Colon/Rectum 023 03/01/2023 fluorouracil (ADRUCIL)fluorouracil (ADRUCIL) infusion - for home infusion (ADRUCIL)IRINOtecan (CAMPTOSAR)IRINOtecan (CAMPTOSAR) IVPB in 250 mLleucovorinleucovorin IVPB in 250 mL Progression Yakov Yousif MD PhD 5 of 12 cycles started FOLFIRI: (Fluorouraci l / Leucovorin / Irinotecan) 14 Day Cycles - Colon/Rectum 023 09/11/2022 fluorouracil (ADRUCIL)IRINOtecan (CAMPTOSAR)leucovorin Provider Discretion Yakov Yousif MD PhD Treatment not started Ramucirumab / PACLItaxel 28 Day Cycles - Gastric/Esop hageal 022 12/17/2021 PACLitaxel (TAXOL)PACLItaxel (TAXOL) IVPB in 250 mLramucirumab (CYRAMZA)ramucirumab (CYRAMZA) IVPB Progressive Disease Faraz Baptiste Jr., MD 6 of 8 cycles started mFOLFOX6: (Fluorouraci l / Leucovorin / Oxaliplatin) 14 Day Cycles - GI 020 11/06/2020 fluorouracil (ADRUCIL)fluorouracil (ADRUCIL) infusion - for home infusion (ADRUCIL)leucovorinleuc ovorin IVPB in 250 mLoxaliplatin (ELOXATIN)oxaliplatin (ELOXATIN) IVPB Therapy Complete Faraz Baptiste Jr., MD 24 of 24 cycles started Oncology Treatment (2) Plan Name Start Date Discontinue Date Treatment Medications Discontinue Reason Plan Provider Cycles - OUTPT - [facility] - BMT/[facility] - [id number] - Combination Therapy - Post Cell Infusion Nivolumab 3 01/25/2023 INV-[facility] (/AD [id number]) nivolumab IVPB in 50 mL Progression Yakov Yousif MD PhD 2 of 6 cycles started Pembrolizumab 21 Day Cycles 2 08/05/2022 pembrolizumab (KEYTRUDA)pembr olizumab (KEYTRUDA) IVPB in 100 mL Progression Faraz Baptiste Jr., MD 11 of 24 cycles started Oncology Treatment (3) Plan Name Start Date Discontinue Date Treatment Medications Discontinue Reason Plan Provider Cycles - INPT/OUTPT - [facility] - BMT/[facility] - [id number] - Combination Therapy - Fludarabine / Cyclophosphamide / [id number] T-Cell Infusion 08/27/19 23 01/25/2023 INV-[facility] (/ADP-0 055-001) cyclophosphamide IVPB in 250 mL (Use Commercial Supply) (Vial 200 mg/mL) (/CA209 -915)INV-[facility] (/ADP-0 055-001) fludarabine IVPB in 100 mL[address]-[facility] pegfilgrastim (Neulasta ON-BODY) (/ADP-0 055-001 (Use Commercial Supply)) Progression Kevin Flynn MD 2 of 2 cycles started Radiation Treatments * Course C5_R_Lung_03/15/2024 - 03/21/2024 Treatment Period Energy Fraction Dose Fractions Total Dose Plans Planned RT LUNG 03/15/2024 - 03/21/2024 400 5 / 2,000 Reference Points Delivered R LUNG_199903/15/2024 - 03/21/2024 2,000 * Course C4_L_spine_07/09/2021 - 07/16/2021 Treatment Period Energy Fraction Dose Fractions Total Dose Plans Planned L3-5 SPINE 07/09/2021 - 07/16/2021 400 5 / 2,000 Reference Points Delivered L3-5 SPINE_199907/09/2021 - 07/16/2021 2,000 * Course C3_R_Shoulder_05/23/2021 - 07/16/2021 Treatment Period Energy Fraction Dose Fractions Total Dose Plans Planned RT SHOULDER 05/23/2021 - 07/16/2021 800 1 / 800 Reference Points Delivered RT SHOULDER 05/23/2021 - 07/16/2021 800 * Course C2_TSpine_201904/17/2019 - 05/21/2021 Treatment Period Energy Fraction Dose Fractions Total Dose Plans Planned M64-RKVXU 05/21/2021 - 05/21/2021 180 1 / 4,140 S69-ILHSV:1 04/18/2019 - 05/21/2021 180 22 / 3,960 Reference Points Delivered T11 4140 04/18/2019 - 05/21/2021 4,140 * Course C1_Espohagus_20 04/13/2019 - 05/21/2021 Treatment Period Energy Fraction Dose Fractions Total Dose Plans Planned Esophagus 04/13/2019 - 05/21/2021 180 25 / 4,500 Reference Points Delivered Esophag_T11_4500 04/13/2019 - 05/21/2021 4,500 Lifetime Dose Tracking * Chemical Lifetime Dose Automatic Entry Manual Entr y Fluoro Time 1.5 minutes 1.5 minutes 0 minutes Air kerma at the reference point (Ka,r) 1,380.51 mGy 1 ,380.51 mGy 0 mGy DLP 11,090 mGycm 11,090 mGycm 0 mGycm
--- OUTSIDE RECORDS SUMMARY | 2024-05-01 08:32 | XMS_ITS | Encounter Summary ---
Author Organization [facility] Address [address] [place] [address] Phone Care Team Providers Care Technical Lead Name Role Phone Carlos Paz MD Unavailable [phone] David Rehman MD Unavailable [phone] Mae Recinos MD Unavailable [phone] Rob Fisher MD Primary Care Provider [phone] Areli Cordon MD Unavailable [phone] Kevin Flynn MD Unavailable [phone] Yakov Yousif MD PhD Unavailable [phone] Chris Rondon MD Primary Care Provider [phone] Encounter Details Date Type Department Care Team (Latest Contact Info) Description 11/23/2023 Orders Only [facility] Scanning, Provider [...] often do you attend chur ch or gnosticism services? 1 to 4 times per year 09/02/2022 Do you belong to any clubs o r organizations such as episcopalian groups, unions, fraternal or athletic groups, or [...] No 09/02/2022 Housing Stability Vital Sign Answer Ejevan e Recorded In the last 12 months, [...] place to sleep or slept in a penitentiary (including now)? No 09/02/2022 Personal Safety Answer Date Recorded Have you ever been in or are you currently in a harmful physical or emotional relationship or is someone making you feel afraid or unsafe? Denies 01/29/2023 Sex and Gender Information Value Date Recorded Sex Assigned at Not on file Legal Sex Male 3:57 PM [employer] Gender Identity Male 03/31/2019 1:28 PM [employer] Sexual Orientation Straight 03/31/2019 1: 28 PM [employer] documented as of this encounter Plan of Treatment Not on file documented as of this encounter Goals Goal Patient Goal Type Associated Problems Recent Progress Patient-Stated? Author CCM Chronic Pain Care Plan Chronic Care Management On track(2022 9:13 AM [employer]) No Madeleine Johnson RN Note: Problem: Chronic Pain Goals: 1. Minimize further functional decline 2. Maximize quality of life 3. Control pain Strategies: - Activity/exercise program recommendation - Conservative stepwise pain medicine strategy with multi-disciplinary approach - Recommend healthy lifestyle strategies and compensatory methods as needed documented as of this encounter Procedures Procedure Name Priority Date/Time Associated Diagnosis Comments SCAN - LABS 11/23/2023 documented in this encounter Results * SCAN - LABS (11/23/2023) us Provider Scanning Final Result documented in this encounter Visit Diagnoses Not on filedocumented in this encounter Additional Health Concerns Infection Onset Date Last Indicated Resolved Time COVID: Suspected 02/07/2024 02/07/2024 02/07/2024 8:28 PM [employer] COVID: Suspected 02/27/2024 02/27/2024 02/27/2024 2:35 AM [employer] RSV, droplet Comment:02/28/2024 eligible for review 03/04. Needs to be afebrile x24 hours off antipyretics and symptoms resolved/improving. Jaqui Mitchell RN 02/27/2024 02/27/2024 03/05/2024 3:[address] COVID: Suspected 03/28/2024 03/28/2024 03/28/2024 9:16 PM [employer] Influenza, adult 03/28/2024 03/28/2024 04/04/2024 3:07 AM [employer] RSV, droplet 03/28/2024 03/28/2024 04/04/2024 3:07 AM [employer] C. difficile suspected 03/29/2024 03/29/202403/29 7:49 PM [employer] documented as of this encounter Care Teams Technical Lead Relationship Specialty Start Date End Date Rob Fisher MD [address] [place] [id number] PCP - General Family Medicine 11/19/21 12/07/23 Chris Rondon MD [address] [place] [id number] PCP - General Family Medicine 12/08/23 Carlos Paz MD [address] [place] [address] [phone] Surgeon General Surgery 03/22/19 David Rehman MD [address] [place] [id number] Surgeon Gastroenterology 05/23/19 Mae Recinos MD [address] [place] [id number] Radiation Oncologist Radiation Oncology 12/30/20 Areli Cordon MD [address] [place] [id number] Consulting Physician Pulmonary Disease 01/23/22 Kevin Flynn MD [address] [place] [address] [phone] Consulting Physician Medical Oncology 05/14/22 Yakov Yousif MD PhD [address] [place] [address] [place] [address] Medical Oncologist/Licensed Staff [facility] 02/23/23 documented as of this encounter
[2024-05-01 13:57] LABS: Basophils Percent Auto 0.5 % (0.2-1.2); Eosinophils Absolute Auto 0.1 K/mm3 (0-0.3); Eosinophils Percent Auto 1.8 % (0-4.4); Hematocrit 37.9 % (42.0-52.0); Hemoglobin 11.6 g/dL (14.0-18.0); Immature Granulocyte Absolute 0.01 K/mm3 (0.00-0.031); Immature Granulocyte Percent A 0.3 % (0-0.5); Lymphocytes Absolute Auto 0.59 K/mm3 (0.9-3.2); Lymphocytes Percent Auto 15.5 % (18.3-44.2); Mean Corpuscular HGB Conc 30.6 g/dl (32-36); Mean Corpuscular Hemoglobin 27.8 pg (26-34); Mean Corpuscular Volume 90.9 fl (80-100); Mean Platelet Volume 11.2 fl (7.4-10.4); Monocytes Absolute Auto 0.6 K/mm3 (0.1-0.6); Monocytes Percent Auto 15.5 % (2.6-8.5); Neutrophils Absolute Auto 2.5 K/mm3 (1.3-6.7); Neutrophils Percent Auto 66.4 % (45.5-73.1); Platelet Count Result 251 k/mm3 (150-375); Red Blood Count 4.17 M/mm3 (4.6-6.20); Red Cell Distribution Width 20.4 % (11.5-14.5); White Blood Count 3.8 K/mm3 (4.5-10.0)
[2024-05-01 15:22] LABS: Alanine Aminotransferase 43 U/L (6-50); Albumin Level 3.9 g/dL (3.5-5.1); Alkaline Phosphatase 98 U/L (38-126); Anion Gap 10 mmol/L (4-12); Aspartate Amino Transferase 43 U/L (17-59); Bilirubin,Total 0.3 mg/dL (0.2-1.3); Blood Urea Nitrogen 21 mg/dL (9-20); Calcium 9.2 mg/dL (8.4-10.2); Carbon Dioxide 24 mmol/L (22-30); Chloride 103 mmol/L (98-107); Estimated Glomerular Filt Rate > 60; Glucose 110 mg/dL (65-110); Potassium 4.5 mmol/L (3.4-5.0); Sodium 137 mmol/L (137-145)
[2024-05-01 15:46] LABS: Prostate Specific Antigen 1.7 ng/mL (< OR = 4.0)
== END 2024-05-01 08:13 | disposition home or self-care (01) ==
PROVIDERS: PCP Family Medicine; Visit Provider Family Medicine
DX: Z12.5 Encounter for screening for malignant neoplasm of prostate (principal); I10 Essential (primary) hypertension; E11.9 Type 2 diabetes mellitus without complications; K76.9 Liver disease, unspecified; N40.1 Benign prostatic hyperplasia with lower urinary tract symptoms; D75.1 Secondary polycythemia; C15.9 Malignant neoplasm of esophagus, unspecified; R35.1 Nocturia
CPT/HCPCS: 36415; 80053; 83036; 84153; 85025; G0103

== ENCOUNTER 2024-09-24 19:48 | Emergency (ER) | payer MEDICARE, SELFPAY ==
[2024-09-24] VITALS (28 sets, daily range): BP systolic 107–131; BP diastolic 46–71; PULSE 94–142; RESP 15–40; TEMP 37.6–40.7; O2SAT 91–100
--- NOTE | ~2024-09-24 | CT_ITS ---
EXAMINATION: CT chest abdomen pelvis wo con DATE: 09/24/2024 20:27 INDICATION: sepsis, back pain, hx esophageal cancer w/ mets . TECHNIQUE: Computed tomography (CT) of the chest, abdomen, and pelvis was performed without intraveno us contrast. Automated exposure control and iterative reconstruction technique were employed. The dos e-length product was 1242.89 mGy-cm. COMPARISON: X-ray chest 10/18/2023 CT abdomen pelvis 12/04/2021; CT chest abdomen 03/14/2019 FINDINGS: CHEST: Thoracic aorta: No significant dilation. Atherosclerotic calcifications. Lung parenchyma and airways: Spiculated right suprahilar mass, grossly unchanged in size from the devin or chest radiograph, which narrows the traversing bronchi. Adjacent peribronchovascular consolidation surrounding the suprahilar mass. Nodular opacities in the right upper lung. Islands of peribronchova scular consolidation in the left lower lobe. Round 2.3 cm opacity in the peripheral left lower lobe, with associated curvilinear vessels. Thoracic inlet, axillae and chest wall: No thyroid or soft tissue mass. No axillary lymphadenopathy. Right implanted port terminating in the distal SVC Mediastinum: No mass or lymphadenopathy. Heart and pericardium: Normal heart size. No pericardial effusion. Coronary artery calcifications: Moderate. Pleura: No effusion or mass. Thoracic bones: No acute osseous finding in the chest. ABDOMEN/PELVIS: Liver: Normal. Biliary/Gallbladder: Gallbladder is distended, without inflammatory changes. No bile duct dilation. Pancreas: No mass or duct dilation. Spleen: Normal. Adrenals:Bilateral soft tissue density adrenal masses. Kidneys: Punctate bilateral nonobstructive calculi measuring up to 4 mm in the left lower pole. No wise spicious mass. No hydronephrosis. GI tract: No small or large bowel dilation. Appendix not confidently visualized Diverticulosis withou t diverticulitis. Mesentery/Peritoneum: No ascites, mass, or free air. Retroperitoneum: No mass Pelvis: Normal urinary bladder. Prostatomegaly with calcification. Soft Tissues: Small fat-containing uncomplicated umbilical and bilateral inguinal hernias. Abdominopelvic bones: No acute osseous finding in the abdomen/pelvis. Multiple sclerotic lesions in the thoracic and lumbar spine. IMPRESSION: Right suprahilar lung mass, causing bronchial obstruction, with surrounding peribronchovascular conso lidation, which may represent post obstructive pneumonia. Right upper lobe nodules and islands of con solidation in the right lower lobe may represent satellite nodules or additional foci of infection. Presumed rounded atelectasis in the peripheral left lower lobe. An additional mass or site of infecti on is not excluded. Gallbladder hydrops, may be secondary to obstruction or fasting. Correlate for symptoms right upper q uadrant pain and with biliary labs. No obstructing stone or inflammatory change detected. Bilateral adrenal masses concerning for metastatic disease, increased in size since the prior CT of 2 022. Multiple sclerotic lesions in the spine, also with interval progression, concerning for metastatic di sease. Reviewed, dictated and finalized at location K. IMPRESSION: Right suprahilar lung mass, causing bronchial obstruction, with surrounding per ibronchovascular consolidation, which may represent post obstructive pneumonia. Right upper lobe nodules and islands of consolidation in the right lower lobe may represent satellite nodules or additional foci of infection. Presumed rounded atelectasis in the peripheral left lower lobe. An additional m ass or site of infection is not excluded. Gallbladder hydrops, may be secondary to obstruction or fasting. Correlate for symptoms right upper quadrant pain and with biliary labs. No obstructing stone or inflammatory change detected. Bilateral adrenal masses concerning for metastatic disease, increased in size s kraig the prior CT of 2021. Multiple sclerotic lesions in the spine, also with interval progression, concer deandre for metastatic disease.
--- NOTE | ~2024-09-24 | CT_ITS ---
EXAMINATION: CT brain wo con DATE: 09/24/2024 20:27 INDICATION: lethagy . TECHNIQUE: Computed tomography (CT) of the head was performed without intravenous contrast. The mA wa s adjusted according to patient size. Iterative reconstruction technique was employed. The dose-lengt h product was 681.00 mGy-cm. COMPARISON: None. FINDINGS: No acute intracranial hemorrhage or extra-axial fluid collection. No hydrocephalus, mass, or herniation. No acute ischemic infarct. Unremarkable dural venous sinus attenuation. No acute osseous abnormality. Left mastoid fluid, the remaining aerated spaces are clear. IMPRESSION: No acute intracranial process. Reviewed, dictated and finalized at location K.
--- NOTE | 2024-09-24 20:01 | ECG_ITS ---
Test Date: 2024-09-24 20:04:29 Measurements Intervals [place] Rate: 141 P: 44 MD: 156 QRS: -31 QRSD: 89 T: 60 QT: 282 QTc: 432 Interpretive Statements SINUS TACHYCARDIA WITH FREQUENT VENTRICULAR PREMATURE COMPLEXES LEFT AXIS DEVIATION BASELINE ARTIFACT- I, II, III, AVR, AVL, AVF, V1 ABNORMAL ECG No previous ECG available for comparison Electronically Signed On 09-24-2024 20:28:47 CDT by Prakash Ortiz D.O.
[2024-09-24 20:19] LABS: Hematocrit 32.4 % (42.0-52.0); Hemoglobin 10.7 g/dL (14.0-18.0); Immature Granulocyte Percent A 1.8 % (0-0.5); Lymphocytes Absolute Auto 0.55 K/mm3 (0.9-3.2); Mean Corpuscular HGB Conc 33.0 g/dl (32-36); Mean Corpuscular Hemoglobin 28.6 pg (26-34); Mean Corpuscular Volume 86.6 fl (80-100); Nucleated Red Blood Cells Absolute Auto 0.000 K/mm3 (0.0-0.012); Nucleated Red Blood Cells Perc 0.0 % (0.0-0.2); Platelet Count Result 138 k/mm3 (150-375); Red Blood Count 3.74 M/mm3 (4.6-6.20); White Blood Count 3.9 K/mm3 (4.5-10.0)
[2024-09-24 20:23] LABS: Add Urine Microscopic? YES; Appearance Urine Cloudy (Clear); Glucose Urine UA Negative (Negative); Leukocyte Esterase Ur 1+ LEU/UL (Negative); Nitrate Urine Negative (Negative); Non Pathogenic Casts 0-2; Specific Grav Ur 1.020 (1.001-1.035)
[2024-09-24] MEDS: ACETAMINOPHEN 650 MG SUPPOSITORY RECTAL (20:27)
[2024-09-24] MEDS: HYDROCORTISONE SODIUM SUCCINATE 100 MG/2 ML VIAL IV PUSH (20:29)
[2024-09-24] MEDS: CEFEPIME 2 GM in SODIUM CHLORIDE 0.9% IV 50 ML 100 ML IVPB (20:29)
[2024-09-24 20:30] LABS: Alanine Aminotransferase 27 U/L (6-50); Albumin Level 3.5 g/dL (3.5-5.1); Alkaline Phosphatase 76 U/L (38-126); Anion Gap 9 mmol/L (4-12); Aspartate Amino Transferase 30 U/L (17-59); Bilirubin,Total 0.6 mg/dL (0.2-1.3); Blood Urea Nitrogen 30 mg/dL (9-20); Calcium 8.3 mg/dL (8.4-10.2); Carbon Dioxide 20 mmol/L (22-30); Chloride 100 mmol/L (98-107); Estimated Glomerular Filt Rate 58; Glucose 129 mg/dL (65-110); Potassium 4.1 mmol/L (3.4-5.0); Sodium 129 mmol/L (137-145); Total Protein 6.4 g/dL (6.3-8.2)
--- NOTE | 2024-09-24 20:36 | ED_ITS ---
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 Patient is undergoing active chemotherapy with last session less than 1 week prior. He presents to the emergency department with hyperpyrexia, altered mental status, lethargy and weakness. Patient had a axillary temperature of 108? F and rectal temperature on arrival 15.3? F. He is altered and normally alert oriented x4 but currently is intermittently awake and alert times 1-2 but quickly repeat questions and answers and intermittently follows commands. No signs of trauma or injury. Family states he was last well this morning and they returned home and found in the exact same position on the couch with a left him and he was altered and poorly responsive. Patient brought in by EMS for resuscitation. Placed in the room 10. Collateral formation provided by EMR review and reports from EMS. Patient is not able to provide collateral at this time. Related Data Home Medications ?Medication ?Instructions ?Recorded ?Confirmed ?Last Taken ?Type B-complex with vitamin C 1 cap PO DAILY 10/02/21 01/26/24 11/17/21 21:00 History calcium 600 mg (as cap PO 10/21/22 01/26/24 Unknown History carbonate)-vitamin D3 12.5 mcg (500 unit) capsule (Calcium with Vit D3) albuterol sulfate 90 mcg/actuation 1 puff inhalation PRN 06/29/23 01/26/24 Unknown History aerosol inhaler esomeprazole magnesium 40 mg 80 mg PO DAILY 06/29/23 01/26/24 Unknown History capsule,delayed release (Nexium) fluticasone fur. 100 mcg-umeclid 1 inh inhalation DAILY 06/29/23 01/26/24 Unknown History 62.5 mcg-vilant 25 mcg inhalat.powder (Trelegy Ellipta) enoxaparin 150 mg/mL subcutaneous 150 mg subcut DAILY 01/26/24 01/26/24 Unknown History syringe (Lovenox) ferrous sulfate 220 mg (44 mg 220 mg PO DAILY 01/26/24 01/26/24 Unknown History iron)/5 mL oral elixir magnesium 200 mg tablet 200 mg PO DAILY 01/26/24 01/26/24 Unknown History Allergies Allergy/AdvReac Type Severity Reaction Status Date / Time animal dander Allergy Intermediate Sneezing Verified 09/24/24 22:23 codeine Allergy Intermediate headache Verified 09/24/24 22:23 morphine Allergy Intermediate Headache Verified 09/24/24 22:23 iohexol (From contrast - CT, Allergy Diarrhea Verified 09/24/24 22:23 X-RAY) AMADEO Inhibitors AdvReac Mild Cough Verified 09/24/24 22:23 taxol AdvReac Severe Other Uncoded 09/24/24 22:23 Review of Systems 2 Review of Systems: As reviewed above in HPI [facility] Past Medical History Medical History Obstructive sleep apnea on CPAP Hepatic steatosis Internal jugular vein thrombosis (~04/2019) On chronic anticoagulation Arthritis of left wrist STT arthritis Hiatal hernia Diabetes mellitus Esophageal cancer (02/2019) Poorly differentiated adenocarcinoma stage IV. Managed at [facility]. With most recent April 2021 CT scan at [facility] demonstrating interval development of mediastinal hilar lymphadenopathy suspicious for metastatic disease. 2.5 cm left adrenal nodule also suspicious for metastatic disease. Interval development of lesion in the right aspect of L3 vertebral body suspicious for metastatic disease and enhancement anterior aspect left lobe of the liver new from prior exam. The patient's disease had previously been stable October 2020. BPH associated with nocturia Essential (primary) hypertension Hypogonadism in male Mixed hyperlipidemia Obstructive sleep apnea (adult) (pediatric) Tobacco use Quit 6-14- Diabetes Dysphagia Carpal tunnel syndrome (~04/2016) Biceps muscle tear (~09/2015) Surgical History Surgical History History of laparoscopic appendectomy 05/12/21 History of esophagogastroduodenoscopy (EGD) History of colonoscopy History of carpal tunnel release History of hand surgery surgery for trigger finger right hand History of surgery on arm Port-A-Cath in place History of knee surgery (~04/2018) Right knee arthroscopy in 2019 for meniscal tear H/O hernia repair Inguinal hernia repair with mesh Family History Family History Sibling Family history of rheumatoid arthritis Heart disease Grandparent Diabetes mellitus Father Hypertension Cancer Social History Social History Social History: He lives in [place] with his of 39 years. 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 Primary care physician: Dr. Moise Lee Code status: Full code Surrogate decision maker: Smoking packs per day: 2 Smoking cigarettes per day: 40.0 Years smoked: 40 Smoking pack-years: 80.00 Smoking status: Former smoker Tobacco type: cigarettes Smoking end date: 08/17/17 Alcohol intake: former Drinks per week: 1 Alcohol use details: 1 EVERY 6 MONTHS SINCE STARTING CHEMO Substance use: former Substance use type: does not use Lack of Transportation: No Lack of Food: Never True Current Housing: I Have Housing Concerned About Future Housing: No Difficulty Paying Gas/Electric Bills: No Difficulty Paying for Meds: No Currently Unemployed: No Education: Associate Degree Difficulty w/ Childcare or Family Care: No Living arrangements: with family Occupation/Education: retired Gender identity (if verbalized by the patient): Male Spiritual care concerns: No Exam 2 Narrative: GENERAL: Septic and ill-appearing, tachycardia, tachypnea, hyperpyrexia HEAD: [Normocephalic, atraumatic.] EYES: [PERRLA and EOMI.] ENT: Nares clear, no rhinorrhea or epistaxis. Mucous membranes moist. NECK: Supple. CHEST: Tachypneic but otherwise no respiratory distress, clear breath sounds HEART: Tachycardic rate, regular rhythm. No murmur heard. [Normal peripheral pulses.] ABDOMEN: [Soft, nondistended], [nontender], [No rigidity or guarding] EXTREMITIES: Normal range of motion. [No edema.] SKIN: Warm, dry, no rash. NEURO: Moving all extremities. Alert and oriented x1 intermittently x3. No rigidity or hyper reflexia noted in the arms or legs PSYCH: [Normal mood and affect.] Course Vital Signs Vital signs: Vital Signs Temperature 40.7 C H 09/24/24 20:23 Pulse Rate 120 H 09/24/24 20:23 Respiratory Rate 24 H 09/24/24 20:23 Blood Pressure 127/71 09/24/24 20:23 Pulse Oximetry 96 09/24/24 20:23 Oxygen Delivery Room Air 09/24/24 20:23 Temperature 37.9 C H 09/24/24 22:47 Pulse Rate 106 H 09/24/24 22:47 Respiratory Rate 21 H 09/24/24 22:47 Blood Pressure 116/58 L 09/24/24 22:47 Pulse Oximetry 95 09/24/24 22:47 Oxygen Delivery Room Air 09/24/24 20:23 MDM - Fever MDM Narrative Medical decision making narrative: 68-year-old male with history of stage IV esophageal cancer with metastasis to vertebrae, lymph nodes, and adrenal glands. Patient is undergoing active chemotherapy with last session less than 1 week prior. He presents to the emergency department with hyperpyrexia, altered mental status, lethargy and weakness. Patient had a axillary temperature of 108? F and rectal temperature on arrival 15.3? F. He is altered and normally alert oriented x4 but currently is intermittently awake and alert times 1-2 but quickly repeat questions and answers and intermittently follows commands. No signs of trauma or injury. Family states he was last well this morning and they returned home and found in the exact same position on the couch with a left him and he was altered and poorly responsive. Patient brought in by EMS for resuscitation. Placed in the room 10. Collateral formation provided by EMR review and reports from EMS. Patient is not able to provide collateral at this time. Patient is altered, tachycardic, febrile and tachypneic. He is febrile 40.7? C per rectum, given rectal Tylenol at this time. Septic bundle initiated he was given 3 L of fluid resuscitation, IV antibiotics with vancomycin cefepime. Patient's family states that he had a previous adrenal crisis with very similar presentations and he is on maintenance steroids at home. He was given stress dose steroids 100 mg hydrocortisone for suspected adrenal crisis seconds secondary to likely sepsis or febrile neutropenia. Laboratory studies pending, blood cultures ordered, LDH, uric acid, CBC, CMP, acth obtained. CT of the head and CT of the chest abdomen pelvis was ordered without contrast given his allergy to iodine contrast. Patient normally gets his [facility] at [facility] and transfer will be initiated upon completion of workup. Sorenson catheter with temperature sensing placed, active cooling with ice packs placed into the intertriginous areas in axilla to try and cool him down in addition to the Tylenol. Patient re-evaluated after stress dose steroids, fluids and antibiotics and he had marked improvement. He is awake alert oriented x4, temperature came down to 100? F. patient is awake answering all questions appropriately and states he just having some mild pain in his back. He was given oxycodone p.o. that he takes at home for this. Laboratory studies are returning and he has some mild neutropenia 3.9, hemoglobin 10.7 at baseline. Normal platelets. Electrolytes show low sodium 129, creatinine of 1.24, potassium 4.1. Glucose 129. Negative lactic acid. C-reactive protein is largely elevated. Uric acid is negative. Acth is pending. TSH is normal. Urinalysis shows some leukocytes but rare bacteria. Head CT shows no acute intracranial process. CT of the chest abdomen pelvis shows right suprahilar lung mass with bronchial obstruction and post obstructive pneumonia with multiple nodules likely potential additional infection foci or satellite nodules. He also has gallbladder hydrops, bilateral worsening adrenal masses with consistent metastatic disease increased from prior scan as well as multiple sclerotic lesions also interval progression from prior scan. Given patient's significant improvement after treatment regimen for adrenal crisis he will require admission to the hospital and into the ICU. Given patient's continuity of care at [facility] the [facility] group was contacted for transfer to their facility. I spoke to the ICU physician over there and patient was accepted under Dr. Blackwood to [facility] ICU. Bed has been assigned and patient was transferred via ALS ambulance successfully. He remains hemodynamically stable and vital improved with improvement in all his vital signs including heart rate coming down, fever coming down, tachypnea improving and blood pressure stable in the 110s to 120 systolic range. Medical Records Attestation: I reviewed the patient's medical records. Lab Data Attestation: I reviewed the patient's lab results. 09/24/24 20:07 09/24/24 20:07 Labs: Lab Results 09/24/24 09/24/24 09/24/24 Range/Units 20:06 20:07 20:07 WBC 3.9 L (4.5-10.0) K/mm3 RBC 3.74 L (4.6-6.20) M/mm3 Hgb 10.7 L (14.0-18.0) g/dL Hct 32.4 L (42.0-52.0) % MCV 86.6 (80-100) fl MCH 28.6 (26-34) pg MCHC 33.0 (32-36) g/dl RDW 16.3 H (11.5-14.5) % Plt Count 138 L (150-375) k/mm3 MPV 10.0 (7.4-10.4) fl Immature Gran % (Auto) 1.8 H (0-0.5) % Neut % (Auto) 74.1 H (45.5-73.1) % Lymph % (Auto) 14.1 L (18.3-44.2) % [place] % (Auto) 8.7 H (2.6-8.5) % Eos % (Auto) 1.0 (0-4.4) % Baso % (Auto) 0.3 (0.2-1.2) % Lymph # (Auto) 0.55 L (0.9-3.2) K/mm3 [place] # (Auto) 0.3 (0.1-0.6) K/mm3 Eos # (Auto) 0.0 (0-0.3) K/mm3 Baso # (Auto) 0.0 (0.0-0.1) K/mm3 Abs Immat Gran (auto) 0.07 H (0.00-0.031) K/mm3 Absolute Neuts (auto) 2.9 (1.3-6.7) K/mm3 Absolute Nucleated RBC 0.000 (0.0-0.012) K/mm3 Nucleated RBC % 0.0 (0.0-0.2) % PT (11.1-14.7) Seconds INR APTT (22.3-36.8) Seconds Sodium 129 L (137-145) mmol/L Potassium 4.1 (3.4-5.0) mmol/L Chloride 100 (98-107) mmol/L Carbon Dioxide 20 L (22-30) mmol/L Anion Gap 9 (4-12) mmol/L BUN 30 H (9-20) mg/dL Creatinine 1.24 (0.7-1.3) mg/dL Estim Creat Clear Calc Not Reportable Estimated GFR 58 L (59 - ) Glucose 129 H (65-110) mg/dL Lactic Acid 1.3 (0.7-2.0) mmol/L Uric Acid (3.5-8.5) mg/dL Calcium 8.3 L (8.4-10.2) mg/dL Phosphorus (2.5-4.5) mg/dL Total Bilirubin 0.6 (0.2-1.3) mg/dL AST 30 (17-59) U/L ALT 27 (6-50) U/L Alkaline Phosphatase 76 (38-126) U/L Lactate Dehydrogenase (120-246) U/L Total Creatine Kinase (55-170) U/L C-Reactive Protein 32.1 H (<1.0) mg/dL Total Protein 6.4 (6.3-8.2) g/dL Albumin 3.5 (3.5-5.1) g/dL TSH (Reflex) 1.170 (0.465-4.68) uIU/mL ACTH Cancelled Cancelled Urine Color Yellow (Yellow) Urine Appearance Cloudy H (Clear) Urine pH 7.5 (5.0-9.0) Ur Specific [place] 1.020 (1.001-1.035) Urine Protein 1+ H (Negative) mg/dL Urine Glucose (UA) Negative (Negative) mg/dL Urine Ketones Negative (Negative) mg/dL Ur Blood (Man) Negative (Negative) Urine Nitrate Negative (Negative) Urine Bilirubin Negative (Negative) Urine Urobilinogen 1.0 (<2.0) mg/dL Leukocyte Esterase Rfl 1+ H (Negative) OMKAR/UL Urine RBC 0-2 (0-2) /hpf Urine WBC 21-50 H (0-3) /hpf Ur Squamous Epith Cells None seen (Few) /hpf Urine Bacteria Rare /hpf Urine Casts 0-2 Influenza A (RT-PCR) (Negative) Influenza B (RT-PCR) (Negative) SARS-CoV-2 RNA (RT-PCR) (Negative) 09/24/24 09/24/24 09/24/24 Range/Units 20:39 20:39 21:09 WBC (4.5-10.0) K/mm3 RBC (4.6-6.20) M/mm3 Hgb (14.0-18.0) g/dL Hct (42.0-52.0) % MCV (80-100) fl MCH (26-34) pg MCHC (32-36) g/dl RDW (11.5-14.5) % Plt Count (150-375) k/mm3 MPV (7.4-10.4) fl Immature Gran % (Auto) (0-0.5) % Neut % (Auto) (45.5-73.1) % Lymph % (Auto) (18.3-44.2) % [place] % (Auto) (2.6-8.5) % Eos % (Auto) (0-4.4) % Baso % (Auto) (0.2-1.2) % Lymph # (Auto) (0.9-3.2) K/mm3 [place] # (Auto) (0.1-0.6) K/mm3 Eos # (Auto) (0-0.3) K/mm3 Baso # (Auto) (0.0-0.1) K/mm3 Abs Immat Gran (auto) (0.00-0.031) K/mm3 Absolute Neuts (auto) (1.3-6.7) K/mm3 Absolute Nucleated RBC (0.0-0.012) K/mm3 Nucleated RBC % (0.0-0.2) % PT 15.0 H (11.1-14.7) Seconds INR 1.2 APTT 35.8 (22.3-36.8) Seconds Sodium (137-145) mmol/L Potassium (3.4-5.0) mmol/L Chloride (98-107) mmol/L Carbon Dioxide (22-30) mmol/L Anion Gap (4-12) mmol/L BUN (9-20) mg/dL Creatinine (0.7-1.3) mg/dL Estim Creat Clear Calc Estimated GFR (59 - ) Glucose (65-110) mg/dL Lactic Acid (0.7-2.0) mmol/L Uric Acid 5.0 (3.5-8.5) mg/dL Calcium (8.4-10.2) mg/dL Phosphorus 2.0 L Cancelled (2.5-4.5) mg/dL Total Bilirubin (0.2-1.3) mg/dL AST (17-59) U/L ALT (6-50) U/L Alkaline Phosphatase (38-126) U/L Lactate Dehydrogenase 153 (120-246) U/L Total Creatine Kinase 166 (55-170) U/L C-Reactive Protein (<1.0) mg/dL Total Protein (6.3-8.2) g/dL Albumin (3.5-5.1) g/dL TSH (Reflex) (0.465-4.68) uIU/mL ACTH Pending Urine Color (Yellow) Urine Appearance (Clear) Urine pH (5.0-9.0) Ur Specific [place] (1.001-1.035) Urine Protein (Negative) mg/dL Urine Glucose (UA) (Negative) mg/dL Urine Ketones (Negative) mg/dL Ur Blood (Man) (Negative) Urine Nitrate (Negative) Urine Bilirubin (Negative) Urine Urobilinogen (<2.0) mg/dL Leukocyte Esterase Rfl (Negative) OMKAR/UL Urine RBC (0-2) /hpf Urine WBC (0-3) /hpf Ur Squamous Epith Cells (Few) /hpf Urine Bacteria /hpf Urine Casts Influenza A (RT-PCR) Negative (Negative) Influenza B (RT-PCR) Negative (Negative) SARS-CoV-2 RNA (RT-PCR) Negative (Negative) Imaging Data Attestation: I personally reviewed and interpreted this imaging study as follows: My impression: Impressions Head CT 09/24/24 20:29 IMPRESSION: No acute intracranial process. Chest/Abdomen/Pelvis CT 09/24/24 20:32 IMPRESSION: Right suprahilar lung mass, causing bronchial obstruction, with surrounding peribronchovascular consolidation, which may represent post obstructive pneumonia. Right upper lobe nodules and islands of consolidation in the right lower lobe may represent satellite nodules or additional foci of infection. Presumed rounded atelectasis in the peripheral left lower lobe. An additional mass or site of infection is not excluded. Gallbladder hydrops, may be secondary to obstruction or fasting. Correlate for symptoms right upper quadrant pain and with biliary labs. No obstructing stone or inflammatory change detected. Bilateral adrenal masses concerning for metastatic disease, increased in size since the prior CT of 2021. Multiple sclerotic lesions in the spine, also with interval progression, concerning for metastatic disease. Critical Care Time Critical Care Time Critical Care Time: Yes Total Critical Care Time: 75 Discharge Plan Discharge Clinical Impression: Acute adrenal crisis, Postobstructive pneumonia, Metastatic cancer, Severe sepsis, Hyperpyrexia Patient Disposition: Acute Care Hospital Condition: Serious Patient Language: Swedish Prescriptions: No Action albuterol sulfate 90 mcg/actuation HFA aerosol inhaler 1 puff inhalation PRN B-complex with vitamin C Capsule 1 cap PO DAILY calcium carbonate-vitamin D3 [Calcium 600 with Vitamin D3] 600 mg-12.5 mcg (500 unit) capsule PO Trelegy Ellipta 100-62.5-25 mcg blister with device 1 inh inhalation DAILY magnesium 200 mg tablet 200 mg PO DAILY ferrous sulfate 220 mg (44 mg iron)/5 mL elixir 220 mg PO DAILY enoxaparin [Lovenox] 150 mg/mL syringe 150 mg subcut DAILY esomeprazole magnesium [Nexium] 40 mg capsule,delayed release(DR/EC) 40 mg PO BID Qty: 180 3RF baclofen 20 mg tablet 20 mg PO DAILY Qty: 90 0RF esomeprazole magnesium [Nexium] 40 mg capsule,delayed release(DR/EC) 80 mg PO DAILY fenofibrate 160 mg tablet See Rx Instructions .ROUTE .COMPLEX Qty: 90 3RF Dose Instruction: TAKE 1 TABLET BY MOUTH ONCE DAILY AT BEDTIME Rx Instructions: TAKE 1 TABLET BY MOUTH ONCE DAILY AT BEDTIME (DME) CPAP See Rx Instructions .Route .MEDSUPPLY Qty: 1 0RF Rx Instructions: CPAP 13 cm H2O, size medium Resmed AirFit F20 FFM, CPAP filters/tubing and heated humidity. tamsulosin 0.4 mg capsule See Rx Instructions .ROUTE .COMPLEX Qty: 180 0RF Dose Instruction: Take 1 capsule by mouth twice daily Rx Instructions: Take 1 capsule by mouth twice daily pregabalin 150 mg capsule 150 mg PO TID Qty: 90 1RF Follow-up/Referrals: Chris Rondon MD [Primary Care Provider] - Time of Disposition: 23:19
--- OUTSIDE RECORDS SUMMARY | 2024-09-24 20:45 | XMS_ITS | Encounter Summary ---
Author Organization [facility] Address [address] [place] [address] Phone Care Team Providers Care Graphic Specialist Name Role Phone Carlos Paz MD Unavailable [phone] David Rehman MD Unavailable [phone] Mae Recinos MD Unavailable [phone] Rob Fisher MD Primary Care Provider [phone] Areli Cordon MD Unavailable [phone] Kevin Flynn MD Unavailable [phone] Reason for Referral * Procedure (Routine) - Closed Specialty Diagnoses / Procedures Referred By Mehrdad kent Referred To Contact Diagnoses Malignant neoplasm of lower third of esophagus (HCC) Procedures Pulmonary Function Test -[facility]; Spirometry with Bronchodilator, DLCO, Lung Volumes, Airway Resistance; Pleth with Airway Resistance; Spirometry Kevin Flynn MD [address] DIV IM BONE MARROW TRANSPLANT[address] [place] [address] Phone: tel: fax: [address] [phone] Referral ID Status Reason Start Date Expiration Date Visits Re quested Visits Authorized [id number] Closed 08/06/2022 09/05/2023 1 1 Reason for Visit * Procedure (Routine) - Closed Specialty Diagnoses / Procedures Referred By Contamee t Referred To Contact Diagnoses Malignant neoplasm of lower third of esophagus (HCC) Procedures Pulmonary Function Test -[facility]; Spirometry with Bronchodilator, DLCO, Lung Volumes, Airway Resistance; Pleth with Airway Resistance; Spirometry Kevin Flynn MD [address] DIV IM [employer]ONE MARROW TRANSPLANT, [address] [place] [address] Phone: tel: fax: [address] [phone] Referral ID Status Reason Start Date Expiration Date Visits Re quested Visits Authorized [id number] Closed 08/06/2022 09/05/2023 1 1 Encounter Details Date Type Department Care Team (Latest Contact Info) Description 08/21/2022 8:56 AM CDT Hospital Encounter [facility] Medical Office Building [address] [place] [address] Malignant neoplasm of lower third of esophagus (HCC) Social History Tobacco Use Types Packs/Day Years Used Date Smoking Tobacco: Former Cigarettes 0.1 35 0 07/29/1982 - 07/29/2017 Passive Smoke Exposure: Past Smokeless Tobacco: Never Alcohol Use Standard Drinks/Week Comments Yes 0 (1 standard drink = 0.6 oz pur e alcohol) 2/week [employer] Utilities Answer Date Recorded In the past 12 months has [employer], gas, oil, or water [employer] threatened to shut off services in your home? No 03/29/2024 Social Connection and Isolation Panel Answer Date Recorded In a typical week, how many times do you talk on the phone with family, friends, or neighbors? More than three times a week 03/29/2024 How often do you get togethe r with friends or relatives? Twice a week 03/29/2024 How often do you attend [facility] or buddhism services? 1 to 4 times per year 03/29/2024 Do you belong to any clubs o r organizations such as spiritism groups, unions, fraternal or athletic groups, or school groups? No 03/29/2024 How often do you attend meet ings of the clubs or organizations you belong to? Never 03/29/2024 Are you , , di vorced, , never , or living with a partner? 03/29/2024 AUDIT-C Answer Date Recorded Q1: How often do you have a drink containing alcohol? Never 08/24/2024 Q2: How many drinks containi ng alcohol do you have on a typical day when you are drinking? Patient does not drink Q3: How often do you have si x or more drinks on one occasion? Never 08/24/2024 Overall Financial Resource Strain (CARDIA) Answe r [...] place to sleep or slept in a care home (including now)? No 09/02/2022 Housing Stability Vital Sign Answer Jeevan e Recorded In the last 12 months, was t here a time when you were not able to pay the mortgage or rent on time? No 03/29/2024 In the past 12 months, how m any times have you moved where you were living? 0 03/29/2024 At any time in the past 12 m [facility], were you homeless or living in a care home (including now)? No 03/29/2024 Personal Safety Answer Date Recorded Have you ever been in or are you currently in a harmful physical or emotional relationship or is someone making you feel afraid or unsafe? Denies 03/29/2024 Sex and Gender Information Value Date Recorded Sex Assigned at Not on file Legal Sex Male 3:57 PM PNEUMATIC TESTER MECHANIC Gender Identity Male 03/31/2019 1:28 PM PNEUMATIC TESTER MECHANIC Sexual Orientation Straight 03/31/2019 1: 28 PM PNEUMATIC TESTER MECHANIC documented as of this encounter Functional Status * AUDIT-C Score Answer Date of Assessment Author 0 08/24/2024 8:59 AM Phuc Bernard RN * Question Answer Date of Assessment Author Q1: How often do you have a drink containing alcohol? Never 08/24/2024 8:59 AM Angie Bernard RN Q2: How many drinks containing alcohol do you have on a typical day when you are drinking? Patient does not drink 08/24/2024 8:59 AM Angie Bernard RN Q3: How often do you have six or more drinks on one occasion? Never 08/24/2024 8:59 AM Angie Bernard RN documented as of this encounter Plan of Treatment Not on file documented as of this encounter Goals Goal Patient Goal Type Associated Problems Recent Progress Patient-Stated? Author CCM Chronic Pain Care Plan Chronic Care Management No change(08/24 8:50 AM CDT) No Madeleine Johnson, MATIAS Note: Problem: Chronic Pain Goals: 1. [...] 9:24 AM CDT) FVC PRE 3.88 L [facility] FVC %PRE PRED 93 % [facility] FEV1 PRE 2.93 L [facility] FEV1 %PRE PRED 91 % [facility] FEV1/FVC PRE 75.6 % [facility] FRC PL PRE 4.18 L [facility] FRC PL %PRE PRED 121 % [facility] RV PRE 3.08 L [facility] RV %PRE PRED 137 % [facility] TLC PRE 7.02 L [facility] TLC %PRE PRED 106 % [facility] DLCO PRE 18.1 ml/min/mmH g [facility] DLCO %PRE PRED 71 % [facility] Anatomical Region Laterality Modality PFT 08/21/2022 8:58 AM CDT Narrative 08/24/2022 9:21 PM CDT SEE PDF Includes Spirometry w/bronchodilator, Body Plethmysmography for the measurement of Lung Volumes and Airway resistance, Diffusing Lung Capacity (DLCO) and Preoperative Pulmonary Exam PFT performed at:->[facility] Procedure:->Spirometry with Bronchodilator Procedure:->DLCO Procedure:->Lung Volumes Procedure:->Airway Resistance Lung Volumes via:->Pleth with Airway Resistance DLCO:->Spirometry Kevin Flynn MD PFT ORDERABLES Final Res ult documented in this encounter Visit Diagnoses Diagnosis Malignant neoplasm of lower third of esophagus (HCC) Malignant neoplasm of lower third of esophagus documented in this encounter Additional Health Concerns Infection Onset Date Last Indicated Resolved Time COVID: Suspected 01/25/2023 01/25/2023 01/25/2023 5:53 PM PNEUMATIC TESTER MECHANIC COVID: Suspected 02/07/2024 02/07/2024 02/07/2024 8:28 PM PNEUMATIC TESTER MECHANIC COVID: Suspected 02/27/2024 02/27/2024 02/27/2024 2:35 AM PNEUMATIC TESTER MECHANIC RSV, droplet Comment:02/28/2024 eligible for review 03/04. Needs to be afebrile x24 hours off antipyretics and symptoms resolved/improving. Jaqui Mitchell RN 02/27/2024 02/27/2024 03/05/2024 3:[address] COVID: Suspected 03/28/2024 03/28/2024 03/28/2024 9:16 PM PNEUMATIC TESTER MECHANIC Influenza, adult 03/28/2024 03/28/2024 04/04/2024 3:07 AM PNEUMATIC TESTER MECHANIC RSV, droplet 03/28/2024 03/28/2024 04/04/2024 3:07 AM PNEUMATIC TESTER MECHANIC C. difficile suspected 03/29/2024 03/29/202403/29 7:49 PM PNEUMATIC TESTER MECHANIC documented as of this encounter Care Teams Graphic Specialist Relationship Specialty Start Date End Date Rob Fisher MD [address] [address] PCP - General Family Medicine 11/19/21 12/07/23 Carlos Paz MD [address] [place] [address] [phone] Surgeon General Surgery 03/22/19 David Rehman MD [address] [address] Surgeon Gastroenterology 05/23/19 Mae Recinos MD [address] [place] [address] Radiation Oncologist Radiation Oncology 12/30/20 Areli Cordon MD [address] [place] [address] [phone] Consulting Physician Pulmonary Disease 01/23/22 Kevin Flynn MD [address] [address] Consulting Physician Medical Oncology 05/14/22 documented as of this encounter
--- OUTSIDE RECORDS SUMMARY | 2024-09-24 20:45 | XMS_ITS | Encounter Summary ---
Author Organization [facility] Address [address] [place] [address] Care Team Providers Care Wafer Machine Operator Name Role Phone Carlos Paz MD Unavailable [phone] David Rehman MD Unavailable [phone] Mae Recinos MD Unavailable [phone] Rob Fisher MD Primary Care Provider [phone] Areli Cordon MD Unavailable [phone] Kevin Flynn MD Unavailable [phone] Yakov Yousif MD PhD Unavailable [phone] Chris Rondon MD Primary Care Provider Encounter Details Date Type Department Care Team (Late st Contact Info) Description 10/27/2022 Telephone [facility] [address] [place] [address] Antonette Waterman, RN Social History Tobacco Use Types Packs/Day Years Used Date Smoking Tobacco: Former Cigarettes 0.1 35 0 07/29/1982 - 07/29/2017 Smokeless Tobacco: Never Alcohol Use Standard Drinks/Week Comments Yes 0 (1 standard drink = 0.6 oz pur e alcohol) 2/week Social Connection and Isolation Panel Answer Date Recorded In a typical week, how many times do you talk on the phone with family, friends, or neighbors? More than three times a week 09/02/2022 How often do you get togethe r with friends or relatives? Twice a week 09/02/2022 How often do you attend chur ch or alevism services? 1 to 4 times per year 09/02/2022 Do you belong to any clubs o r organizations such as mandaeism groups, unions, fraternal or athletic groups, or [...] a care home (including now)? No 09/02/2022 Sex and Gender Information Value Date Recorded Sex Assigned at Not on file Legal Sex Male 3:57 PM MANAGER CRISIS Gender Identity Male 03/31/2019 1:28 PM MANAGER CRISIS Sexual Orientation Straight 03/31/2019 1: 28 PM MANAGER CRISIS documented as of this encounter Plan of Treatment Not on file documented as of this encounter Goals Goal Patient Goal Type Associated Problems Recent Progress Patient-Stated? Author CCM Chronic Pain Care Plan Chronic Care Management No change(08/24 8:50 AM CDT) No Madeleine Johnson RN Note: Problem: Chronic [...] COVID: Suspected 01/25/2023 01/25/2023 01/25/2023 5:53 PM MANAGER CRISIS COVID: Suspected 02/07/2024 02/07/2024 02/07/2024 8:28 PM MANAGER CRISIS COVID: Suspected 02/27/2024 02/27/2024 02/27/2024 2:35 AM MANAGER CRISIS RSV, droplet Comment:02/28/2024 eligible for review 03/04. Needs to be afebrile x24 hours off antipyretics and symptoms resolved/improving. Jaqui Mitchell RN 02/27/2024 02/27/2024 03/05/2024 3:[address] COVID: Suspected 03/28/2024 03/28/2024 03/28/2024 9:16 PM MANAGER CRISIS Influenza, adult 03/28/2024 03/28/2024 04/04/2024 3:07 AM MANAGER CRISIS RSV, droplet 03/28/2024 03/28/2024 04/04/2024 3:07 AM MANAGER CRISIS C. difficile suspected 03/29/2024 03/29/202403/29 7:49 PM MANAGER CRISIS documented as of this encounter Care Teams Wafer Machine Operator Relationship Specialty Start Date End Date Rob Fisher MD [address] [address] PCP - General Family Medicine 11/19/21 12/07/23 Chris Rondon MD [address] [place] [address] PCP - General Family Medicine 12/08/23 Carlos Paz MD [address] [place] [address] [phone] Surgeon General Surgery 03/22/19 David Rehman MD [address] [address] Surgeon Gastroenterology 05/23/19 Mae Recinos MD [address] [address] Radiation Oncologist Radiation Oncology 12/30/20 Areli Cordon MD [address] [place] [address] Consulting Physician Pulmonary Disease 01/23/22 Kevin Flynn MD [address] [place] [address] Consulting Physician Medical Oncology 05/14/22 Yakov Yousif MD PhD [address] [place] [address] [phone] Medical Oncologist/Counter Tender Medical Oncology 02/23/23 documented as of this encounter
--- OUTSIDE RECORDS SUMMARY | 2024-09-24 20:45 | XMS_ITS | Encounter Summary ---
Author Organization [facility] Address [address] [place] [address] Phone Care Team Providers Care Automobile Locator Name Role Phone Emile Gastelum MD, Faraz Unavailable +[phone] Carlos Paz MD Unavailable [phone] David Rehman MD Unavailable [phone] Mae Recinos MD Unavailable [phone] Rob Fisher MD Primary Care Provider Areli Cordon MD Unavailable Kevin Flynn MD Unavailable [phone] Yakov Yousif MD PhD Unavailable [phone] Chris Rondon MD Primary Care Provider [phone] Encounter Details Date Type Department Care Team [...] on file Legal Sex Male 3:57 PM GROCERY CARRIER Gender Identity Male 03/31/2019 1:28 PM GROCERY CARRIER Sexual Orientation Straight 03/31/2019 1: 28 PM GROCERY CARRIER documented as of this encounter Plan of [...] COVID: Suspected 01/25/2023 01/25/2023 01/25/2023 5:53 PM GROCERY CARRIER COVID: Suspected 02/07/2024 02/07/2024 02/07/2024 8:28 PM GROCERY CARRIER COVID: Suspected 02/27/2024 02/27/2024 02/27/2024 2:35 AM GROCERY CARRIER RSV, droplet Comment:02/28/2024 eligible for review 03/04. Needs to be afebrile x24 hours off antipyretics and symptoms resolved/improving. Jaqui Mitchell RN 02/27/2024 02/27/2024 03/05/2024 3:[address] COVID: Suspected 03/28/2024 03/28/2024 03/28/2024 9:16 PM GROCERY CARRIER Influenza, adult 03/28/2024 03/28/2024 04/04/2024 3:07 AM GROCERY CARRIER RSV, droplet 03/28/2024 03/28/2024 04/04/2024 3:07 AM GROCERY CARRIER C. difficile suspected 03/29/2024 03/29/202403/29 7:49 PM GROCERY CARRIER documented as of this encounter Care Teams Automobile Locator Relationship Specialty Start Date End Date Rob Fisher MD [address] [facility] [address] [place] [address] PCP - General Family Medicine 11/19/21 12/07/23 Chris Rondon MD [address] [place] [address] [phone] PCP - General Family Medicine 12/08/23 Faraz Baptiste Jr., MD Medical Oncologist/Game Preserve Manager Medical Oncology 03/21/19 05/25/22 Carlos Paz MD [address] [place] [address] [phone] Surgeon General Surgery 03/22/19 David Rehman MD [address] [place] [address] Surgeon Gastroenterology 05/23/19 Mae Recinos MD [address] [place] [address] Radiation Oncologist Radiation Oncology 12/30/20 Areli Cordon MD [address] [place] [address] [phone] Consulting Physician Pulmonary Disease 01/23/22 Kevin Flynn MD [address] [place] [address] [phone] Consulting Physician Medical Oncology 05/14/22 Yakov Yousif MD PhD NPI: [id number] [place] [id number] Medical Oncologist/Game Preserve Manager Medical Oncology 02/23/23 documented as of this encounter
--- OUTSIDE RECORDS SUMMARY | 2024-09-24 20:45 | XMS_ITS | Encounter Summary ---
Author Organization [facility] Address [address] [place] [address] Care Team Providers Care Specimen Transporter Name Role Phone Lydia Lee MD Primary Care Provider [phone] Emile Gastelum MD, [facility] Unavailable + [phone] Carlos Paz MD Unavailable [phone] David Rehman MD Unavailable [phone] Mae Recinos MD Unavailable [phone] Rob Fisher MD Primary Care Provider [phone] Areli Cordon MD Unavailable [phone] Kevin Flynn MD Unavailable [phone] Yakov Yousif MD PhD Unavailable [phone] Chris Rondon MD Primary Care Provider + [phone] Encounter Details Date Type Department Care Team (Late st Contact Info) Description 04/05/2019 Telephone [facility] [address] [address] Laura Diallo RN Social [...] file Legal Sex Male 3:57 PM MANAGER CLIENT SERVICE Gender Identity Male 03/31/2019 1:28 PM MANAGER CLIENT SERVICE Sexual Orientation Straight 03/31/2019 1: 28 PM MANAGER CLIENT SERVICE documented as of this encounter Miscellaneous Notes * Telephone Encounter - Laura Diallo RN - 04/05/2019 1:16 PM MANAGER CLIENT SERVICE GER CLIENT SERVICE documented in this encounter Plan of Treatment Not on file documented as of this encounter Visit Diagnoses Not on filedocumented in this encounter Additional Health Concerns Infection Onset Date Last Indicated Resolved Time COVID: Suspected 11/11/2021 11/11/2021 11/11/2021 10:03 AM CDT COVID: Suspected 01/25/2023 01/25/2023 01/25/2023 5:53 PM MANAGER CLIENT SERVICE COVID: Suspected 02/07/2024 02/07/2024 02/07/2024 8:28 PM MANAGER CLIENT SERVICE COVID: Suspected 02/27/2024 02/27/2024 02/27/2024 2:35 AM MANAGER CLIENT SERVICE RSV, droplet Comment:02/28/2024 eligible for review 03/04. Needs to be afebrile x24 hours off antipyretics and symptoms resolved/improving. Jaqui Mitchell RN 02/27/2024 02/27/2024 03/05/2024 3:07 AM MANAGER CLIENT SERVICE COVID: Suspected 03/28/2024 03/28/2024 03/28/2024 9:16 PM MANAGER CLIENT SERVICE Influenza, adult 03/28/2024 03/28/2024 04/04/2024 3:07 AM MANAGER CLIENT SERVICE RSV, droplet 03/28/2024 03/28/2024 04/04/2024 3:07 AM MANAGER CLIENT SERVICE C. difficile suspected 03/29/2024 03/29/202403/29 7:49 PM MANAGER CLIENT SERVICE documented as of this encounter Care Teams Specimen Transporter Relationship Specialty Start Date End Date Lydia Lee MD [address] [place] [address] PCP - General Family Medicine 03/21/19 11/18/21 Rob Fisher MD [address] [place] [address] PCP - General Family Medicine 11/19/21 12/07/23 Chris Rondon MD [address] [place] [address] [facility] [address] [place] [address] PCP - General Family Medicine 12/08/23 Faraz Baptiste Jr., MD [address] [place] [address] [place] [address] Medical Oncologist/Executive Manager Medical Oncology 03/21/19 05/25/22 Carlos Paz MD [address] [address] [phone] Surgeon General Surgery 03/22/19 David Rehman MD [address] [place] [address] Surgeon Gastroenterology 05/23/19 Mae Recinos MD [address] [place] [address] Radiation Oncologist Radiation Oncology 12/30/20 Areli Cordon MD [address] [place] [address] [phone] Consulting Physician Pulmonary Disease 01/23/22 Kevin Flynn MD [address] [place] [address] [phone] Consulting Physician Medical Oncology 05/14/22 Yakov Yousif MD PhD [address] [place] [address] [place] [id number] Medical Oncologist/Executive Manager Medical Oncology 02/23/23 documented as of this encounter
--- OUTSIDE RECORDS SUMMARY | 2024-09-24 20:45 | XMS_ITS | Encounter Summary ---
Author Organization [facility] Address [address] [place] [address] Phone Care Team Providers Care Check Processor Name Role Phone Emile Gastelum MD, Faraz Unavailable + [phone] Carlos Paz MD Unavailable [phone] David Rehman MD Unavailable [phone] Mae Recinos MD Unavailable [phone] Rob Fisher MD Primary Care Provider [phone] Areli Cordon MD Unavailable Kevin Flynn MD Unavailable [phone] Yakov Yousif MD PhD Unavailable [phone] Chris Rondon MD Primary Care Provider [phone] Encounter Details Date Type Department Care Team (Late st Contact Info) Description 02/17/2022 Telephone [facility] Oncology [facility] 7th [place] [address] [place] [address] Elver Martinez Social History Tobacco [...] on file Legal Sex Male 3:57 PM PRODUCTIVITY ENGINEER Gender Identity Male 03/31/2019 1:28 PM PRODUCTIVITY ENGINEER Sexual Orientation Straight 03/31/2019 1: 28 PM PRODUCTIVITY ENGINEER documented as of this encounter Plan of Treatment Not on file documented as of this encounter Visit Diagnoses Not on filedocumented in this encounter Additional Health Concerns Infection Onset Date Last Indicated Resolved Time COVID: Suspected 01/25/2023 01/25/2023 01/25/2023 5:53 PM PRODUCTIVITY ENGINEER COVID: Suspected 02/07/2024 02/07/2024 02/07/2024 8:28 PM PRODUCTIVITY ENGINEER COVID: Suspected 02/27/2024 02/27/2024 02/27/2024 2:35 AM PRODUCTIVITY ENGINEER RSV, droplet Comment:02/28/2024 eligible for review 03/04. Needs to be afebrile x24 hours off antipyretics and symptoms resolved/improving. Jaqui Mitchell RN 02/27/2024 02/27/2024 03/05/2024 3:07 AM PRODUCTIVITY ENGINEER COVID: Suspected 03/28/2024 03/28/2024 03/28/2024 9:16 PM PRODUCTIVITY ENGINEER Influenza, adult 03/28/2024 03/28/2024 04/04/2024 3:07 AM PRODUCTIVITY ENGINEER RSV, droplet 03/28/2024 03/28/2024 04/04/2024 3:07 AM PRODUCTIVITY ENGINEER C. difficile suspected 03/29/2024 03/29/202403/29 7:49 PM PRODUCTIVITY ENGINEER documented as of this encounter Care Teams Check Processor Relationship Specialty Start Date End Date Rob Fisher MD [address] [facility] [address] [place] [address] PCP - General Family Medicine 11/19/21 12/07/23 Chris Rondon MD [address] [place] [address] [phone] PCP - General Family Medicine 12/08/23 Faraz Baptiste Jr., MD Medical Oncologist/Friction Paint Machine Tender Medical Oncology 03/21/19 05/25/22 Carlos Paz MD [address] [place] [address] [phone] Surgeon General Surgery 03/22/19 David Rehman MD [address] [phone] Surgeon Gastroenterology 05/23/19 Mae Recinos MD [address] [phone] Radiation Oncologist Radiation Oncology 12/30/20 Areli Cordon MD [address] [place] [address] [phone] Consulting Physician Pulmonary Disease 01/23/22 Kevin Flynn MD [address] [place] [address] Consulting Physician Medical Oncology 05/14/22 Yakov Yousif MD PhD [address] [place] [address] [phone] Medical Oncologist/Friction Paint Machine Tender Medical Oncology 02/23/23 documented as of this encounter
--- OUTSIDE RECORDS SUMMARY | 2024-09-24 20:45 | XMS_ITS | Encounter Summary ---
Author Organization [facility] Address [address] [place] [address] Phone Care Team Providers Care Manager Multimedia Name Role Phone Emile Gastelum MD, Faraz Unavailable +- [phone] Carlos Paz MD Unavailable [phone] David Rehman MD Unavailable [phone] Mae Recinos MD Unavailable [phone] Rob Fisher MD Primary Care Provider [phone] Areli Cordon MD Unavailable Kevin Flynn MD Unavailable [phone] Yakov Yousif MD PhD Unavailable [phone] Chris Rondon MD Primary Care Provider [phone] Encounter Details Date Type Department Care Team [...] on file Legal Sex Male 3:57 PM POLISHER EYEGLASS FRAMES Gender Identity Male 03/31/2019 1:28 PM POLISHER EYEGLASS FRAMES Sexual Orientation Straight 03/31/2019 1: 28 PM POLISHER EYEGLASS FRAMES documented as of this encounter Plan of [...] COVID: Suspected 01/25/2023 01/25/2023 01/25/2023 5:53 PM POLISHER EYEGLASS FRAMES COVID: Suspected 02/07/2024 02/07/2024 02/07/2024 8:28 PM POLISHER EYEGLASS FRAMES COVID: Suspected 02/27/2024 02/27/2024 02/27/2024 2:35 AM POLISHER EYEGLASS FRAMES RSV, droplet Comment:02/28/2024 eligible for review 03/04. Needs to be afebrile x24 hours off antipyretics and symptoms resolved/improving. Jaqui Mitchell RN 02/27/2024 02/27/2024 03/05/2024 3:[address] COVID: Suspected 03/28/2024 03/28/2024 03/28/2024 9:16 PM POLISHER EYEGLASS FRAMES Influenza, adult 03/28/2024 03/28/2024 04/04/2024 3:07 AM POLISHER EYEGLASS FRAMES RSV, droplet 03/28/2024 03/28/2024 04/04/2024 3:07 AM POLISHER EYEGLASS FRAMES C. difficile suspected 03/29/2024 03/29/202403/29 7:49 PM POLISHER EYEGLASS FRAMES documented as of this encounter Care Teams Manager Multimedia Relationship Specialty Start Date End Date Rob Fisher MD [address] [facility] [address] [place], [place] [phone] PCP - General Family Medicine 11/19/21 12/07/23 Chris Rondon MD [address] [place] [address] [phone] PCP - General Family Medicine 12/08/23 Faraz Baptiste Jr., MD Medical Oncologist/Night Court Magistrate Medical Oncology 03/21/19 05/25/22 Carlos Paz MD [address] [place] [address] [phone] Surgeon General Surgery 03/22/19 David Rehman MD [address] [place] [address] [phone] Surgeon Gastroenterology 05/23/19 Mae Recinos MD [address] [facility] [address] [place] [address] Radiation Oncologist Radiation Oncology 12/30/[address] [facility] [address] Consulting Physician Pulmonary Disease 01/23/[address] [facility] [address] [phone] Consulting Physician Medical Oncology 05/14/22 Yakov Yousif MD PhD [address] [address] Medical Oncologist/Night Court Magistrate Medical Oncology 02/23/23 documented as of this encounter
--- OUTSIDE RECORDS SUMMARY | 2024-09-24 20:45 | XMS_ITS | Encounter Summary ---
Author Organization [facility] Address [address] [place] [address] Phone Care Team Providers Care Faculty Administrator Name Role Phone Carlos Paz MD Unavailable [phone] David Rehman MD Unavailable [phone] Mae Recinos MD Unavailable [phone] Areli Cordon MD Unavailable [phone] Kevin Flynn MD Unavailable [phone] Yakov Yousif MD PhD Unavailable [phone] Chris Rondon MD Primary Care Provider [phone] Encounter Details Date Type Department Care Team (Latest Contact Info) Description 05/01/2024 Orders Only [facility] Scanning, Provider Social History Tobacco Use Types Packs/Day Years Used Date Smoking Tobacco: Former Cigarettes 0.1 35 0 07/29/1982 - 07/29/2017 Smokeless Tobacco: Never Alcohol Use Standard Drinks/Week Comments Yes 0 (1 standard drink = 0.6 oz pur e alcohol) 2/week [facility] Utilities Answer Date Recorded In the past 12 months has [employer] electric, gas, oil, or water company threatened [...] often do you attend chur ch or christian services? 1 to 4 times per year 03/29/2024 Do you belong to any clubs o r organizations such as temple groups, unions, fraternal or athletic groups, or [...] place to sleep or slept in a alf (including now)? No 09/02/2022 Housing Stability Vital Sign Answer Jeevan e Recorded In the last 12 months, was t here a time when you were not able to pay the mortgage or rent on time? No 03/29/2024 In the past 12 months, how m any times have you moved where you were living? 0 03/29/2024 At any time in the past 12 m ont, were you homeless or living in a alf (including now)? No 03/29/2024 Personal Safety Answer Date Recorded Have you ever been in or are you currently in a harmful physical or emotional relationship or is someone making you feel afraid or unsafe? Denies 03/29/2024 Sex and Gender Information Value Date Recorded Sex Assigned at Not on file Legal Sex Male 3:57 PM PRODUCT ENGINEER Gender Identity Male 03/31/2019 1:28 PM PRODUCT ENGINEER Sexual Orientation Straight 03/31/2019 1: 28 PM PRODUCT ENGINEER documented as of this encounter Plan [...] Priority Date/Time Associated Diagnosis Comments SCAN - PATHOLOGY 05/01/2024 documented in this encounter Results * SCAN - PATHOLOGY (05/01/2024) us Provider Scanning Final Result documented in this encounter Visit Diagnoses Not on filedocumented in this encounter Care Teams Faculty Administrator Relationship Specialty Start Date End Date Chris Rondon MD [facility] [address] [address] PCP - General Family Medicine 12/08/23 Carlos Paz MD [address] [place] [address] 267339 Surgeon General Surgery 03/22/19 David Rehman MD [address] [address] Surgeon Gastroenterology 05/23/19 Mae Recinos MD [address] [address] Radiation Oncologist Radiation Oncology 12/30/20 Areli Cordon MD [address] [place] [address] [phone] Consulting Physician Pulmonary Disease 01/23/22 Kevin Flynn MD [address] [place] [address] [phone] Consulting Physician Medical Oncology 05/14/22 Yakov Yousif MD PhD [address] [place] [address] [id number] Medical Oncologist/Police Detention Attendant Medical Oncology 02/23/23 documented as of this encounter
--- OUTSIDE RECORDS SUMMARY | 2024-09-24 20:45 | XMS_ITS | Encounter Summary ---
Author Organization [facility] Address [address] [place] [address] Care Team Providers Care Tax Auditor Name Role Phone Carlos Paz MD Unavailable [phone] David Rehman MD Unavailable [phone] Mae Recinos MD Unavailable [phone] Rob Fisher MD Primary Care Provider [phone] Areli Cordon MD Unavailable [phone] Kevin Flynn MD Unavailable [phone] Yakov Yousif MD PhD Unavailable [phone] Chris Rondon MD Primary Care Provider Encounter Details Date Type Department Care Team (Late st Contact Info) Description 11/25/2022 Telephone [facility] [address] [place] [address] Antonette Waterman, RN Social History Tobacco Use [...] often do you attend chur ch or quaker services? 1 to 4 times per year 09/02/2022 Do you belong to any clubs o r organizations such as jehovah's witness groups, unions, fraternal or athletic groups, or [...] place to sleep or slept in a senior care (including now)? No 09/02/2022 Sex and Gender Information Value Date Recorded Sex Assigned at Not on file Legal Sex Male 3:57 PM CHAMPION OF SUSTAINABLE DESIGN Gender Identity Male 03/31/2019 1:28 PM CHAMPION OF SUSTAINABLE DESIGN Sexual Orientation Straight 03/31/2019 1: 28 PM CHAMPION OF SUSTAINABLE DESIGN documented as of this encounter Plan of [...] COVID: Suspected 01/25/2023 01/25/2023 01/25/2023 5:53 PM CHAMPION OF SUSTAINABLE DESIGN COVID: Suspected 02/07/2024 02/07/2024 02/07/2024 8:28 PM CHAMPION OF SUSTAINABLE DESIGN COVID: Suspected 02/27/2024 02/27/2024 02/27/2024 2:35 AM CHAMPION OF SUSTAINABLE DESIGN RSV, droplet Comment:02/28/2024 eligible for review 03/04. Needs to be afebrile x24 hours off antipyretics and symptoms resolved/improving. Jaqui Mitchell RN 02/27/2024 02/27/2024 03/05/2024 3:[address] COVID: Suspected 03/28/2024 03/28/2024 03/28/2024 9:16 PM CHAMPION OF SUSTAINABLE DESIGN Influenza, adult 03/28/2024 03/28/2024 04/04/2024 3:07 AM CHAMPION OF SUSTAINABLE DESIGN RSV, droplet 03/28/2024 03/28/2024 04/04/2024 3:07 AM CHAMPION OF SUSTAINABLE DESIGN C. difficile suspected 03/29/2024 03/29/202403/29 7:49 PM CHAMPION OF SUSTAINABLE DESIGN documented as of this encounter Care Teams Tax Auditor Relationship Specialty Start Date End Date Rob Fisher MD [address] [address] PCP - General Family Medicine 11/19/21 12/07/23 Chris Rondon MD [address] [place] [address] PCP - General Family Medicine 12/08/23 Carlos Paz MD [address] [place] [address] [phone] Surgeon General Surgery 03/22/19 David Rehman MD [address] [address] Surgeon Gastroenterology 05/23/19 Mae Recinos MD [address] [address] Radiation Oncologist Radiation Oncology 12/30/20 Areli Cordon MD [address] [place] [address] Consulting Physician Pulmonary Disease 01/23/22 Kevin Flynn MD [address] [place] [address] Consulting Physician Medical Oncology 05/14/22 Yakov Yousif MD PhD [address] [place] [address] [id number] Medical Oncologist/Hatch Supervisor Medical Oncology 02/23/23 documented as of this encounter
--- OUTSIDE RECORDS SUMMARY | 2024-09-24 20:45 | XMS_ITS | Encounter Summary ---
Author Organization [facility] Address [address] [place] [address] Phone Care Team Providers Care Registered Nurse Behavioral Health Name Role Phone Carlos Paz MD Unavailable [phone] David Rehman MD Unavailable [phone] Mae Recinos MD Unavailable [phone] Rob Fisher MD Primary Care Provider [phone] Areli Cordon MD Unavailable [phone] Kevin Flynn MD Unavailable [phone] Yakov Yousif MD PhD Unavailable [phone] Chris Rondon MD Primary Care Provider [phone] Encounter Details Date Type Department Care Team (Late st Contact Info) Description 08/07/2022 Telephone [facility] PFT Lab [address] [facility] Medical Office [address] [place] [address] Felecia Soto, LOGISTICS SERVICE REPRESENTATIVE Social History Tobacco Use Types Packs/Day Years [...] on file Legal Sex Male 3:57 PM CHIEF NURSING EXECUTIVE Gender Identity Male 03/31/2019 1:28 PM CHIEF NURSING EXECUTIVE Sexual Orientation Straight 03/31/2019 1: 28 PM CHIEF NURSING EXECUTIVE documented as of this encounter Plan of [...] COVID: Suspected 01/25/2023 01/25/2023 01/25/2023 5:53 PM CHIEF NURSING EXECUTIVE COVID: Suspected 02/07/2024 02/07/2024 02/07/2024 8:28 PM CHIEF NURSING EXECUTIVE COVID: Suspected 02/27/2024 02/27/2024 02/27/2024 2:35 AM CHIEF NURSING EXECUTIVE RSV, droplet Comment:02/28/2024 eligible for review 03/04. Needs to be afebrile x24 hours off antipyretics and symptoms resolved/improving. Jaqui Mitchell RN 02/27/2024 02/27/2024 03/05/2024 3:[address] COVID: Suspected 03/28/2024 03/28/2024 03/28/2024 9:16 PM CHIEF NURSING EXECUTIVE Influenza, adult 03/28/2024 03/28/2024 04/04/2024 3:07 AM CHIEF NURSING EXECUTIVE RSV, droplet 03/28/2024 03/28/2024 04/04/2024 3:07 AM CHIEF NURSING EXECUTIVE C. difficile suspected 03/29/2024 03/29/202403/29 7:49 PM CHIEF NURSING EXECUTIVE documented as of this encounter Care Teams Registered Nurse Behavioral Health Relationship Specialty Start Date End Date Rob Fisher MD [address] [address] PCP - General Family Medicine 11/19/21 12/07/23 Chris Rondon MD [address] [place] [address] [phone] PCP - General Family Medicine 12/08/23 Carlos Paz MD [address] [place] [address] [phone] Surgeon General Surgery 03/22/19 David Rehman MD [address] [address] Surgeon Gastroenterology 05/23/19 Mae Recinos MD [address] [phone] Radiation Oncologist Radiation Oncology 12/30/20 Areli Cordon MD [facility] [phone] Consulting Physician Pulmonary Disease 01/23/22 Kevin Flynn MD [address] [place] [address] [phone] Consulting Physician Medical Oncology 05/14/22 Yakov Yousif MD PhD [facility] [address] Medical Oncologist/Library Clerical Assistant Medical Oncology 02/23/23 documented as of this encounter
--- OUTSIDE RECORDS SUMMARY | 2024-09-24 20:46 | XMS_ITS | Encounter Summary ---
Author Organization [facility] Address [address] [place] [address] Phone Care Team Providers Care Clockmaker Apprentice Name Role Phone Carlos Paz MD Unavailable [phone] David Rehman MD Unavailable [phone] Mae Recinos MD Unavailable [phone] Rob Fisher MD Primary Care Provider [phone] Areli Cordon MD Unavailable [phone] Kevin Flynn MD Unavailable [phone] Yakov Yousif MD PhD Unavailable [phone] Chris Rondon MD Primary Care Provider [phone] Encounter Details Date Type Department Care Team [...] often do you attend chur ch or hindu services? 1 to 4 times per year [...] to sleep or slept in a senior living (including now)? No 09/02/2022 Personal Safety Answer Date Recorded Have you ever been in or are you currently in a harmful physical or emotional relationship or is someone making you feel afraid or unsafe? Denies 01/29/2023 Sex and Gender Information Value Date Recorded Sex Assigned at Not on file Legal Sex Male 3:57 PM PANTOMIMIST Gender Identity Male 03/31/2019 1:28 PM PANTOMIMIST Sexual Orientation Straight 03/31/2019 1: 28 PM PANTOMIMIST documented as of this encounter Plan of [...] COVID: Suspected 02/07/2024 02/07/2024 02/07/2024 8:28 PM PANTOMIMIST COVID: Suspected 02/27/2024 02/27/2024 02/27/2024 2:35 AM PANTOMIMIST RSV, droplet Comment:02/28/2024 eligible for review 03/04. Needs to be afebrile x24 hours off antipyretics and symptoms resolved/improving. Jaqui Mitchell RN 02/27/2024 02/27/2024 03/05/2024 3:[address] COVID: Suspected 03/28/2024 03/28/2024 03/28/2024 9:16 PM PANTOMIMIST Influenza, adult 03/28/2024 03/28/2024 04/04/2024 3:07 AM PANTOMIMIST RSV, droplet 03/28/2024 03/28/2024 04/04/2024 3:07 AM PANTOMIMIST C. difficile suspected 03/29/2024 03/29/202403/29 7:49 PM PANTOMIMIST documented as of this encounter Care Teams Clockmaker Apprentice Relationship Specialty Start Date End Date Rob Fisher MD [address] [place] [id number] PCP - General Family Medicine 11/19/21 12/07/23 Chris Rondon MD [address] [place] [address] [phone] PCP - General Family Medicine 12/08/23 Carlos Paz MD [address] [place] [address] [phone] Surgeon General Surgery 03/22/19 David Rehman MD [address] [place] [address] Surgeon Gastroenterology 05/23/19 Mae Recinos MD [address] [place] [address] Radiation Oncologist Radiation Oncology 12/30/20 Areli Cordon MD [address] [place] [address] [phone] Consulting Physician Pulmonary Disease 01/23/22 Kevin Flynn MD [address] [place] [address] [id number] Consulting Physician Medical Oncology 05/14/22 Yakov Yousif MD PhD [address] [place] [address] [place] [phone] Medical Oncologist/Immigration Manager Medical Oncology 02/23/23 documented as of this encounter
--- OUTSIDE RECORDS SUMMARY | 2024-09-24 20:46 | XMS_ITS ---
Author Organization [facility] Address [address] [place] [address] Care Team Providers Care Collar Padder Blindstitch Name Role Phone Carlos Paz MD Unavailable [phone] David Rehman MD Unavailable [phone] Mae Recinos MD Unavailable [phone] Areli Cordon MD Unavailable Kevin Flynn MD Unavailable [phone] Yakov Yousif MD PhD Unavailable [phone] Chris Rondon MD Primary Care Provider [phone] Active Problems Patient Care Coordination No te Formatting of this note is d ifferent from the original. BMT In[facility] Care Coordination [facility] Plan SURPASS Study Auto Cytotoxic T Lymphocyet cell [id number] Reason for Admission SURPASS 09/02 Transplant/IEC Planning BMT/IEC Plan HLA typing/IDMs [] Insurance Approval [] Discharge Planning Anticipated Discharge Date 09/06 Patient Education Completed [x] CAR-T dc ed to pt Issue to be Resolved Before Discharge Discharge Disposition Requests Sent to Case Management, Pharmacy PA Team, or Medical Assistants Post-Discharge Follow-Up Living Situation/Distance from [facility] Caregiver Lab/Transfusion Frequency Venous Access & Care tunneled central venous catheter Local Oncologist Contact Phone: Fax: Post-Discharge Office Visit (H30) ZXC 09/08 Miscellaneous Notes: Problem Noted Date Diagnosed Date Influenza A 03/29/2024 Assessment & Plan (03/29/2024 4:07 AM INDIGO VAT TENDER CLOTH): RVP positive for influenza A on admission. - start tamiflu - supportive care Diarrhea 03/29/2024 Assessment & Plan (03/30/2024 9:59 AM INDIGO VAT TENDER CLOTH): Improving Patient endorsing a few days of diarrhea. - check c diff and stool culture-negative - PRN imodium Severe protein-calorie malnutrition 03/29/2024 Fever, unspecified fever cause 02/27/2024 Assessment & Plan (02/28/2024 3:31 PM INDIGO VAT TENDER CLOTH): Secondary to post-obstructive PNA (see plan above) Postobstructive pneumonia 02/27/2024 Assessment & Plan (03/01/2024 1:59 PM INDIGO VAT TENDER CLOTH): - s/p recent course of Augmentin without [...] after eating, no aspiration per him though. [employer] c/s - looked ok on eval (rec'd [...] 02/27/2024 Assessment & Plan (02/28/2024 3:32 PM INDIGO VAT TENDER CLOTH): - Continue home flomax - pt states he was previously on Tadalafil daily for BPH but states it was recently stopped - will hold off Pulmonary embolism 02/27/2024 Assessment & Plan (03/29/2024 4:07 AM INDIGO VAT TENDER CLOTH): In 08/2021, additionally had DVT of RIJ in 2021. Failed xarelto and is currently on home therapeutic lovenox. - continue home lovenox Assessment & Plan (02/28/2024 3:32 PM INDIGO VAT TENDER CLOTH): PE identified on CT 08/27/2021. 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 Previously on Xarelto. Due to failing DOAC and luminal GI cancer, he has been on therapeutic enoxaparin 1.5 mg/kg daily. - continue therapeutic lovenox Pneumonitis 02/27/2024 Assessment & Plan (02/28/2024 6:07 PM INDIGO VAT TENDER CLOTH): Patient had recently diagnosed drug induced pneumonitis (on trial with MD Zimmerman (Phase 1, Part A1 dose escalation of [id number] (prodrug of interferon-alpha) monotherapy)) which requiring ICU [...] point - O2A prior to discharge - [employer] eval/FEES We will sign off. See separate summary of treatment note. Assessment & Plan (02/29/2024 4:13 PM INDIGO VAT TENDER CLOTH): Grade 4. 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 Required ICU admission with oxygen and pressers. [...] 09/01/2022 Assessment & Plan (03/29/2024 4:07 AM INDIGO VAT TENDER CLOTH): Follows with Dr. Yousif. Dx 2021. Has had disease progression on multiple lines of therapy. S/p T-cell infusion on Agilence clinical trial then started on pembro with progression. Most recently, was on trial at [facility] with [id number] (prodrug of interferon-alpha) monotherapy with stable disease. However, subsequently developed pneumonitis requiring ICU admission and pressors. Since then, has received RT to RUL obstructing mass completed on 03/21/24. - med onc c/s Assessment & Plan (02/28/2024 3:31 PM INDIGO VAT TENDER CLOTH): He was diagnosed in February 2019, received concurrent chemoradiation, then received 1L FOLFOX/ 5FU maintenance without progression for oligometastatic disease (oxaliplatin stopped due to neuropathy), then 2L as ramucirumab/ paclitaxel with progression, then 3L as pembrolizumab from December 2021 until June 2022 with progression. [id number] (autologous CAR T cells), received T-cell infusion [...] 05/03/23 then stopped Lonsurf and enrolled on [id number] (phase 1 of HPK1 Inhibitor [id number] anti-PD-1 tislelizumab) at [facility], cycle 1 day 1 on 06/04/2023. CT CAP 07/13/2023 showed stable disease. He completed [address] CAP 10/07/2023 showed disease progression. He enrolled in a Phase 1, Part A1 dose escalation of [id number] (prodrug of interferon-alpha) monotherapy at [facility] and started cycle 1 day 1 [...] options - Pulm c/s as elsewhere - [employer] c/s Hilar mass 08/07/2022 Diastolic congestive heart failure 03/08/2022 Assessment & Plan (02/27/2024 5:00 AM INDIGO VAT TENDER CLOTH): - G1DD with EF 62% on 11/2023 Echo - mild right leg edema Smoking greater than 30 pack years 03/08/2022 COPD (chronic obstructive pulmonary disease) Assessment & Plan (03/30/2024 9:59 AM INDIGO VAT TENDER CLOTH): Patient reports nonadherence to home trelegy. -discussed in SOB Assessment & Plan (02/28/2024 3:29 PM INDIGO VAT TENDER CLOTH): - hx of tobacco use for 40 years, quit. 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 FOLFIRI: (Fluorouracil / Leucovorin / Irinotecan) 14 Day Cycles - Colon/Rectum* Plan Start Date:08/16/2024 Plan Provider:Yakov Yousif MD PhD Linked Problems Esophageal carcinomaMalignan t neoplasm metastatic to bone (HCC)Malignant neoplasm of lower third of esophagus (HCC)Secondary and unspecified malignant neoplasm of lymph nodes of multiple regionsSecondary malignant neoplasm of liver (HCC) Treatment Medications Current Day (Day 1 , Cycle 4 - Planned for 10/02/2024) Next Day (Day 1, Cycle 5 - Planned for 10/16/2024) dexAMETHasone (DECADRON)fluorouracil (ADRUCIL)fluorouracil (ADRUCIL) infusion - for home infusion (ADRUCIL)IRINOtecan (CAMPTOSAR)IRINOtecan (CAMPTOSAR) IVPB in 250 mLleucovorinleucovorin IVPB in 250 mL fluorouraciL (ADRUCIL) 5,050 mg in cadd cassette 101 mL infusion - for home infusionIRINOtecan (CAMPTOSAR) 380 mg in dextrose 5% 250 mL IVPBleucovorin 850 mg in dextrose 5% 250 mL IVPB fluorouraciL (ADRUCIL) 5,050 mg in cadd cassette 101 mL infusion - for home infusionIRINOtecan (CAMPTOSAR) 380 mg in dextrose 5% 250 mL IVPBleucovorin 850 mg in dextrose 5% 250 mL IVPB IV MAINTENANCE THERAPY PLAN* Plan Start Date:06/12/2021 Plan Provider:Faraz Baptiste Jr., MD Linked Problems Malignant neoplasm of lower third of esophagus (HCC) Treatment Medications No medications scheduled. Other Current Plans ADULT BLOOD ADMINISTRATION FOR OUTPATIENT* Plan Start Date:10/23/2021 Plan Provider:Faraz Baptiste Jr., MD Linked Problems Anemia Treatment Medications No medications scheduled. Past Treatment and Therapy Plans Oncology Chemotherapy Treatment Plan Name Start Date Discontinue Date Treatment Medications Discontinue Reason Plan Provider Cycles FOLFIRI: (Fluorouraci l / Leucovorin / Irinotecan) 14 Day Cycles - Esophageal 08/22/19 25 08/15/2024 fluorouracil (ADRUCIL)IRINOtecan (CAMPTOSAR)leucovorin Provider Discretion Yakov Yousif MD PhD Treatment not started mFOLFOX6: (Fluorouraci l / Leucovorin / Oxaliplatin) 14 Day Cycles - GI 03/01/ 024 04/26/2023 fluorouracil (ADRUCIL)fluorouracil (ADRUCIL) infusion - [...] Treatment Medications Discontinue Reason Plan Provider Cycles Trifluridine/Ti piracil PO BID 28 days/cycle - GI 05/03/19 24 08/11/2024 No medications scheduled. Progression Yakov Yousif MD PhD Treatment not started - OUTPT - [facility] - BMT/CGCI - [id number] - Combination Therapy - Post Cell Infusion Nivolumab 10/06/19 23 01/25/2023 [facility] (/AD [id number]) nivolumab IVPB in 50 mL Progression Yakov Yousif MD PhD 2 of 6 cycles started Pembrolizumab 21 Day Cycles 12/18/19 22 08/05/2022 pembrolizumab (KEYTRUDA)pembr olizumab (KEYTRUDA) IVPB in 100 mL Progression Faraz Baptiste Jr., MD 11 of 24 cycles started Oncology Treatment (3) Plan Name Start Date Discontinue Date Treatment Medications Discontinue Reason Plan Provider Cycles [id number] - [facility] - Phase 1 - [id number] - Part 2 Q3 Week Dosing - CS0160 / Docetaxel 08/29/1908/15/2024 DOCEtaxel (TAXOTERE)INV-[facility] [id number] (/2268) Toxicity/Com plication Zarina Jimenez, [employer]HER Treatment not started - INPT/OUTPT - [facility] - BMT/CGCI - [id number] - Combination Therapy - Fludarabine / Cyclophosphamide / [id number] T-Cell Infusion 08/27/19 23 01/25/2023 [facility] (/ADP- 0055-001) cyclophosphamide IVPB in 250 mL (Use Commercial Supply) (Vial 200 mg/mL) (/CA20 9915)INV-[facility] (/ADP- 0055-001) fludarabine IVPB in 100 mLINV-[facility] pegfilgrastim (Neulasta ON-BODY) (/ADP- 0055-001 (Use Commercial Supply)) Progression Kevin Flynn MD 2 of 2 cycles started Radiation Treatments * Course C5_R_Lung_25 03/15/2024 - 03/21/2024 Treatment Period Energy Fraction Dose Fractions Total Dose Plans Planned RT LUNG 03/15/2024 - 03/21/2024 400 5 / 2,000 Reference Points Delivered R LUNG_199903/15/2024 - 03/21/2024 2,000 * Course C4_L_spine_22 07/09/2021 - 07/16/2021 Treatment Period Energy Fraction Dose Fractions Total Dose Plans Planned L3-5 SPINE 07/09/2021 - 07/16/2021 400 5 / 2,000 Reference Points Delivered L3-5 SPINE_199907/09/2021 - 07/16/2021 2,000 * Course C3_R_Shoulder_22 05/23/2021 - 07/16/2021 Treatment Period Energy Fraction Dose Fractions Total Dose Plans Planned RT SHOULDER 05/23/2021 - 07/16/2021 800 1 / 800 Reference Points Delivered RT SHOULDER 05/23/2021 - 07/16/2021 800 * Course C2_TSpine_201904/17/2019 - 05/21/2021 Treatment Period Energy Fraction Dose Fractions Total Dose Plans Planned A12-RHSRY 05/21/2021 - 05/21/2021 180 1 / 4,140 H97-JBNCV:1 04/18/2019 - 05/21/2021 180 22 / 3,960 Reference Points Delivered T11 4140 04/18/2019 - 05/21/2021 4,140 * Course C1_Espohagus_20 04/13/2019 - 05/21/2021 Treatment Period Energy Fraction Dose Fractions Total Dose Plans Planned Esophagus 04/13/2019 - 05/21/2021 180 25 / 4,500 Reference Points Delivered Esophag_T11_4500 04/13/2019 - 05/21/2021 4,500 Lifetime Dose Tracking * Chemical Lifetime Dose Automatic Entry Manual Entr y Fluoro Time 2.962 minutes 2.962 minutes 0 minutes Air kerma at the reference point (Ka,r) 1,415.38 mGy 1 ,415.38 mGy 0 mGy DLP 12,391 mGycm 12,391 mGycm 0 mGycm
--- OUTSIDE RECORDS SUMMARY | 2024-09-24 20:46 | XMS_ITS | Clinical Summary ---
Author Organization [facility] Address [address] [place] [address] Care Team Providers Care Airline Operations Agent Name Role Phone Carlos Paz MD Unavailable [phone] David Rehman MD Unavailable [phone] Mae Recinos MD Unavailable [phone] Areli Cordon MD Unavailable Kevin Flynn MD Unavailable [phone] Yakov Yousif MD PhD Unavailable [phone] Chris Rondon MD Primary Care Provider [phone] Allergies Active Allergy Reactions Criticality Noted Date [...] tablet (160 mg total) by mouth nightly 019 Active esomeprazole magnesium (NEXIUM ORAL) Take 40 mg by mouth daily Active tamsulosin (FLOMAX) 0.4 mg extended release capsule Take 2 capsules (0.8 mg total) by mouth daily after dinner 022 Active vitamin B complex capsule Take 1 capsule by mouth daily Active calcium carbonate-irvin min D3 (CALTRATE 600 + D) 1500 mg (600 mg elemental) -400 units per tablet Take 1 tablet by mouth daily Active diphenoxylate- atropine (LOMOTIL) 2.5-0.025 mg per tablet Take 1 tablet by mouth 2 (two) times a day as needed 023 Active alteplase (CATHFLO ACTIVASE) 2 mg injectionIndic ations: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) Infuse 2 mL (2 mg total) into a venous catheter as needed (No blood return to port) 1 each 024 Active magnesium oxide 400 mg magnesium capsule Take by mouth Active albuterol HFA (PROVENTIL HFA,VENTOLIN HFA,PROAIR HFA) 90 mcg/actuation inhaler Inhale 2 puffs every 4 (four) hours as needed for wheezing or shortness of breath 1 each 025 Active benzonatate (TESSALON) 100 mg capsuleIndicat ions:Cough Take 1 capsule (100 mg total) by mouth 3 (three) times a day as needed for cough 20 capsule 1 025 Active Additional Information Patient not taking.Reported on 09/04/2024 loperamide (IMODIUM) 2 mg capsuleIndicat ions:diarrhea Take 1 capsule (2 mg total) by mouth every hour as needed for diarrhea (after each liquid stool (ensure that at least one C. diff assay is negative prior to initiating)) 30 capsule 1 025 Active baclofen (LIORESAL) 20 mg tablet Take 1 tablet (20 mg total) by mouth 3 (three) times a day Active ipratropium-al buteroL (DUO-NEB) 0.5-2.5 mg/3 mL nebulizer solutionIndica tions:Chronic obstructive pulmonary disease, unspecified COPD type (HCC) Take 3 mL by nebulization 4 (four) times a day as needed for wheezing or shortness of breath 360 mL 5 025 2025 Active multivitamin with folic acid 400 mcg tablet Take 1 tablet by mouth daily Active pregabalin (LYRICA) 150 mg capsule Take 1 capsule (150 mg total) by mouth 3 (three) times a day 025 Active cetirizine (ZyrTEC) 10 mg tablet Take 1 tablet (10 mg total) by mouth daily 025 Active fludrocortison e 0.1 mg tablet Take 0.5 tablets (0.05 mg total) by mouth daily 025 Active hydrocortisone (CORTEF) 10 mg tablet Take 2.5 tablets (25 mg total) by mouth daily 025 Active scopolamine 1 mg over 3 days patch 3 dayIndications :Nausea and vomiting Apply 1 patch every 3 days. 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 Total of 5 days after each infusion. 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 120 tablet 3 025 Active cholecalcifero l (VITAMIN D-3) 2000 unit capsule Take 1 capsule (2,000 Units total) by mouth daily 30 capsule 3 025 Active oxyCODONE (ROXICODONE) 5 mg immediate release tabletIndicati ons:Pain Take 1 tablet (5 mg total) by mouth every 6 (six) hours as needed for pain 120 tablet 025 Active cholecalcifero l (VITAMIN D-3) 2000 unit tablet Take 1 tablet (2,000 Units total) by mouth daily 30 tablet 024 2024 Discontinued oxyCODONE (ROXICODONE) 5 mg immediate release tabletIndicati ons:Pain Take 1 tablet (5 mg total) by mouth every 6 (six) hours as needed for pain 120 tablet 025 2024 Discontinued(R eorder) Active Problems Patient Care Coordination No te Formatting of this note is d ifferent from the original. BMT Inpatient Care Coordination [facility] Treatment Plan SURPASS Study Auto Cytotoxic T Lymphocyet cell [id number] Reason for Admission SURPASS 09/02 Transplant/IEC Planning BMT/IEC Plan HLA typing/IDMs [] Insurance Approval [] Discharge Planning Anticipated Discharge Date 09/06 Patient Education Completed [x] CAR-T dc ed to pt Issue to be Resolved Before Discharge Discharge Disposition Requests Sent to Case Management, Pharmacy PA Team, or Medical Assistants Post-Discharge Follow-Up Living Situation/Distance from [facility] Caregiver Lab/Transfusion Frequency Venous Access & Care tunneled central venous catheter Local Oncologist Contact Phone: Fax: Post-Discharge Office Visit (H30) ZXC 09/08 Miscellaneous Notes: Problem Noted Date Diagnosed Date Influenza A 03/29/2024 Assessment & Plan (03/29/2024 4:07 AM ORCHARD MANAGER): RVP positive for influenza A on admission. - start tamiflu - supportive care Diarrhea 03/29/2024 Assessment & Plan (03/30/2024 9:59 AM ORCHARD MANAGER): Improving Patient endorsing a few days of diarrhea. - check c diff and stool culture-negative - PRN imodium Severe protein-calorie malnutrition 03/29/2024 Fever, unspecified fever cause 02/27/2024 Assessment & Plan (02/28/2024 3:31 PM ORCHARD MANAGER): Secondary to post-obstructive PNA (see plan above) Postobstructive pneumonia 02/27/2024 Assessment & Plan (03/01/2024 1:59 PM ORCHARD MANAGER): - s/p recent course of Augmentin without [...] after eating, no aspiration per him though. MECHANICAL SPREADER OPERATOR c/s - looked ok on eval (rec'd [...] 02/27/2024 Assessment & Plan (02/28/2024 3:32 PM ORCHARD MANAGER): - Continue home flomax - pt states he was previously on Tadalafil daily for BPH but states it was recently stopped - will hold off Pulmonary embolism 02/27/2024 Assessment & Plan (03/29/2024 4:07 AM ORCHARD MANAGER): In 08/2021, additionally had DVT of RIJ in 2021. Failed xarelto and is currently on home therapeutic lovenox. - continue home lovenox Assessment & Plan (02/28/2024 3:32 PM ORCHARD MANAGER): PE identified on CT 08/27/2021. 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 Previously on Xarelto. Due to failing DOAC and luminal GI cancer, he has been on therapeutic enoxaparin 1.5 mg/kg daily. - continue therapeutic lovenox Pneumonitis 02/27/2024 Assessment & Plan (02/28/2024 6:07 PM ORCHARD MANAGER): Patient had recently diagnosed drug induced pneumonitis (on trial with MD Zimmerman (Phase 1, Part A1 dose escalation of [id number] (prodrug of interferon-alpha) monotherapy)) which requiring ICU [...] point - O2A prior to discharge - MECHANICAL SPREADER OPERATOR eval/FEES We will sign off. See separate summary of treatment note. Assessment & Plan (02/29/2024 4:13 PM ORCHARD MANAGER): Grade 4. Secondary to Phase I [id number]. Required ICU admission with oxygen and pressers. [...] 09/01/2022 Assessment & Plan (03/29/2024 4:07 AM ORCHARD MANAGER): Follows with Dr. Yousif. Dx 2021. Has had disease progression on multiple lines of therapy. S/p T-cell infusion on [employer] clinical trial then started on pembro with progression. Most recently, was on trial at [facility] with [id number] (prodrug of interferon-alpha) monotherapy with stable disease. However, subsequently developed pneumonitis requiring ICU admission and pressors. Since then, has received RT to RUL obstructing mass completed on 03/21/24. - med onc c/s Assessment & Plan (02/28/2024 3:31 PM ORCHARD MANAGER): He was diagnosed in February 2019, received concurrent chemoradiation, then received 1L FOLFOX/ 5FU maintenance without progression for oligometastatic disease (oxaliplatin stopped due to neuropathy), then 2L as ramucirumab/ paclitaxel with progression, then 3L as pembrolizumab from December 2021 until June 2022 with progression. He was treated on [employer] HRPO [id number] (autologous CAR T cells), received T-cell infusion [...] 05/03/23 then stopped Lonsurf and enrolled on [id number] (phase 1 of HPK1 Inhibitor [id number] anti-PD-1 tislelizumab) at [facility], cycle 1 day 1 on 06/04/2023. CT CAP 07/13/2023 showed stable disease. He completed [address] CAP 10/07/2023 showed disease progression. He enrolled in a Phase 1, Part A1 dose escalation of [id number] (prodrug of interferon-alpha) monotherapy at [facility] and started cycle 1 day [...] options - Pulm c/s as elsewhere - MECHANICAL SPREADER OPERATOR c/s Hilar mass 08/07/2022 Diastolic congestive heart failure 03/08/2022 Assessment & Plan (02/27/2024 5:00 AM ORCHARD MANAGER): - G1DD with EF 62% on 11/2023 Echo - mild right leg edema Smoking greater than 30 pack years 03/08/2022 COPD (chronic obstructive pulmonary disease) Assessment & Plan (03/30/2024 9:59 AM ORCHARD MANAGER): Patient reports nonadherence to home trelegy. -discussed in SOB Assessment & Plan (02/28/2024 3:29 PM ORCHARD MANAGER): - hx of tobacco use for 40 years, quit. 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 01/16/2022 Anemia 10/23/2021 Assessment & Plan (03/30/2024 10:06 AM ORCHARD MANAGER): Mixed picture of anemia of chronic disease and iron deficiency anemia -CTM Personal history of radiation therapy 12/30/2020 Malignant neoplasm metastatic to bone 04/24/2019 Persons encountering health services in other specified circumstances 03/22/2019 Malignant neoplasm of lower third of esophagus 0 03/17/2019 Encounters Date Type Department Care Team Description 09/20/2024 9:00 AM CDT Therapy [facility] Physical Therapy [address] [place] [address] Haider Becerra PTA Mid back pain (Primary Dx) 09/18/2024 2:15 PM CDT Infusion [facility] - Infusion [address] [facility] Floor [address] [place] [address] Esophageal carcinoma (HCC); Malignant neoplasm metastatic to bone (HCC); Malignant neoplasm of lower third of esophagus (HCC); 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); Secondary malignant neoplasm of liver (HCC) 09/18/2024 2:00 PM CDT Infusion [facility] - Infusion [address] [facility] [address] [place] [address] Secondary malignant neoplasm of liver (HCC) (Primary Dx); Esophageal carcinoma (HCC); Malignant neoplasm metastatic to bone (HCC); Malignant neoplasm of lower third of esophagus (HCC); 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) 09/18/2024 1:00 PM CDT Clinical Support [facility] - Lab Collection [address] [facility] [address] [place] [address] Esophageal carcinoma (HCC); Malignant neoplasm metastatic to bone (HCC); Malignant neoplasm of lower third of esophagus (HCC); 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); Secondary malignant neoplasm of liver (HCC) 09/18/2024 Orders Only [facility] Oncology [address] [place] [address] 5 [place] [address] Yakov Yousif MD PhD Malignant neoplasm of lower third of esophagus (HCC) (Primary Dx); Malignant neoplasm metastatic to bone (HCC) 09/17/2024 7:56 AM CDT - 09/17/2024 11:59 PM CDT Hospital Encounter [facility] [address] [place] [address] Mid back pain Discharge Disposition: Discharge to home or self care 09/15/2024 Orders Only [facility] Oncology [address] [place] [address] Floor 8 [place] [address] Yakov Yousif MD PhD 09/06/2024 Plan of Care Documentation [facility] Physical Therapy [address] [place] [address] [address] [place] [address] 09/04/2024 12:00 PM CDT Infusion [facility] - Infusion [address] [place] [address] Floor 6 [place] [address] Secondary malignant neoplasm of liver (HCC) (Primary Dx); Esophageal carcinoma (HCC); Malignant neoplasm metastatic to bone (HCC); Malignant neoplasm of lower third of esophagus (HCC); 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) 09/04/2024 11:00 AM CDT Office Visit [facility] Oncology [address] [place] [address] Floor 5 [place] [address] Yakov Yousif MD PhD Esophageal carcinoma (HCC); Malignant neoplasm metastatic to bone (HCC); Malignant neoplasm of lower third of esophagus (HCC); 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); Secondary malignant neoplasm of liver (HCC) 09/04/2024 10:00 AM CDT Clinical Support [facility] - Lab Collection [address] [place] [address] Floor 5 [place] [address] Malignant neoplasm of lower third of esophagus (HCC) (Primary Dx); Esophageal carcinoma (HCC); Malignant neoplasm metastatic to bone (HCC); 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); Secondary malignant neoplasm of liver (HCC) 09/04/2024 Orders Only [facility] Oncology [address] [place] [address] Yakov Yousif MD PhD Malignant neoplasm of lower third of esophagus (HCC) (Primary Dx); Malignant neoplasm metastatic to bone (HCC) 09/04/2024 Orders Only [facility] Oncology [address] [place] [address] Yakov Yousif MD PhD Malignant neoplasm of lower third of esophagus (HCC) (Primary Dx); Secondary malignant neoplasm of liver (HCC); Esophageal carcinoma (HCC); Malignant neoplasm metastatic to bone (HCC); 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) 09/01/2024 11:00 AM CDT Therapy [facility] Physical Therapy [facility] [address] [place] [address] Michelle Hester DPT Mid back pain 08/24/2024 8:17 AM CDT - 08/24/2024 11:59 PM CDT Hospital Encounter [facility] [address] [place] [address] for Advanced Medicine [address] [place] [address] John Urias MD Mid back pain (Primary Dx); Chronic bilateral low back pain without sciatica Discharge Disposition: Discharge to home or self care 08/21/2024 2:45 PM CDT Infusion [facility] - Infusion [address] [place], [place] [address] Floor 6 [place] [address] Malignant neoplasm of lower third of esophagus (HCC); Malignant neoplasm metastatic to bone (HCC) 08/21/2024 2:30 PM CDT Infusion [facility] - Infusion [address] [place] [address] Malignant neoplasm of lower third of esophagus (HCC) (Primary Dx); Esophageal carcinoma (HCC); Malignant neoplasm metastatic to bone (HCC); 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); Secondary malignant neoplasm of liver (HCC) 08/21/2024 Orders Only [facility] On[facility] [address] [place] [address] Floor [address] [place] [address] Radha Amaya rowdy 08/21/2024 Orders Only [facility] [address] [place] [address] Floor [address] [place] [address] Roxana Roque MD 08/17/2024 Telephone [facility] [address] [place] [address] 5 [place] [address] Mariela San RN 08/16/2024 Orders Only [facility] [address] [place] [address] Yakov Yousif MD PhD Esophageal carcinoma (HCC) (Primary Dx); Malignant neoplasm metastatic to bone (HCC); Malignant neoplasm of lower third of esophagus (HCC); 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); Secondary malignant neoplasm of liver (HCC) 08/16/2024 Orders Only [facility] On[facility] [address] [place] [address] Yakov Yousif MD PhD Malignant neoplasm of lower third of esophagus (HCC) (Primary Dx); Malignant neoplasm metastatic to bone (HCC); Adrenal insufficiency 08/15/2024 Orders Only [address] [address] Yakov Yousif MD PhD Malignant neoplasm of lower third of esophagus (HCC) (Primary Dx); Malignant neoplasm metastatic to bone (HCC) 08/15/2024 Orders Only [facility] [address] [place] [phone] Yakov Yousif MD PhD Malignant neoplasm of lower third of esophagus (HCC) (Primary Dx); Secondary malignant neoplasm of liver (HCC); Esophageal carcinoma (HCC); Malignant neoplasm metastatic to bone (HCC); 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) 08/15/2024 Orders Only [facility] [address] [place] [phone] Yakov Yousif MD PhD Malignant neoplasm of lower third of esophagus (HCC) (Primary Dx); Malignant neoplasm metastatic to bone (HCC) 08/11/2024 Orders Only [facility] On[facility] [address] [place] [phone] Yakov Yousif MD PhD 08/08/2024 Telephone Radiology 1 [place] [address] Niyah William, 08/08/2024 Orders Only [facility] [address] [place] [address] Floor [address] [place] [address] Zarina Gore, BUZZSAW OPERATOR Malignant neoplasm of lower third of esophagus (HCC) (Primary Dx); Malignant neoplasm metastatic to bone (HCC); Esophageal carcinoma (HCC); Secondary malignant neoplasm of liver (HCC); 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) 08/04/2024 Orders Only [facility] On[facility] [address] [place] [address] Floor [address] [place] [address] Zarina Gore, BUZZSAW OPERATOR Malignant neoplasm of lower third of esophagus (HCC) (Primary Dx); Secondary malignant neoplasm of liver (HCC); Esophageal carcinoma (HCC); Malignant neoplasm metastatic to bone (HCC); 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) 07/31/2024 Documentation [facility] Oncology [address] [place] [address] Floor [address] [place] [address] Yakov Yousif MD PhD 07/24/2024 1:15 PM CDT Infusion [facility] - Infusion [address] [place] [address] Floor [address] [place] [address] Malignant neoplasm metastatic to bone (HCC) (Primary Dx); Malignant neoplasm of lower third of esophagus (HCC); Esophageal carcinoma (HCC); Secondary malignant neoplasm of liver (HCC) 07/24/2024 12:15 PM CDT Office Visit [facility] On[facility] [address] [place] [address] Floor [address] [place] [address] Yakov Yousif MD PhD 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) (Primary Dx); Malignant neoplasm of lower third of esophagus (HCC); Malignant neoplasm metastatic to bone (HCC); Esophageal carcinoma (HCC); Secondary malignant neoplasm of liver (HCC) 07/24/2024 11:15 AM CDT Clinical Support [facility] - Lab Collection [address] [place] [address] Floor [address] [place] [address] Malignant neoplasm of lower third of esophagus (HCC); Malignant neoplasm metastatic to bone (HCC); Esophageal carcinoma (HCC); Secondary malignant neoplasm of liver (HCC) 07/24/2024 6:59 AM CDT - 07/24/2024 11:59 PM CDT Hospital Encounter [facility] [address] [place] [address] Malignant neoplasm of lower third of esophagus (HCC); Malignant neoplasm metastatic to bone (HCC); Esophageal carcinoma (HCC); Secondary malignant neoplasm of liver (HCC) Discharge Disposition: Discharge to home or self care 07/13/2024 Orders Only [facility] Oncology [facility] [address] [place] [address] Yakov Yousif MD PhD 07/07/2024 10:10 AM CDT - 07/07/2024 11:59 PM CDT Hospital Encounter [facility] [address] [place] [address] for Advanced Medicine [address] [place] [address] John Urias MD Lumbar spondylosis Discharge Disposition: Discharge to home or self care 07/04/2024 Telephone [facility] [address] [place] [address] for Advanced Medicine [address] [place] [address] John Urias MD Anticoagulation; PMC Preprocedure 06/28/2024 5:16 PM CDT - 06/28/2024 11:59 PM CDT Hospital Encounter [facility] [address] [place] [address] Discharge Disposition: Discharge to home or self care 06/27/2024 7:38 PM CDT - 06/27/2024 11:59 PM CDT Hospital Encounter [facility] [address] [place] [address] Diagnosis unknown Discharge Disposition: Discharge to home or self care 06/26/2024 3:30 PM CDT Infusion [facility] - Infusion [facility] [address] [place] [address] Malignant neoplasm metastatic to bone (HCC) (Primary Dx); Malignant neoplasm of lower third of esophagus (HCC); Esophageal carcinoma (HCC); Secondary malignant neoplasm of liver (HCC) 06/26/2024 2:30 PM CDT Office Visit [facility] [address] [facility] [address] [place] [address] Yakov oYusif MD PhD Malignant neoplasm of lower third of esophagus (HCC); Malignant neoplasm metastatic to bone (HCC); Esophageal carcinoma (HCC); Secondary malignant neoplasm of liver (HCC) 06/26/2024 1:30 PM CDT Clinical Support [facility] [place] - Lab Collection [facility] [address] [place] [address] Malignant neoplasm of lower third of esophagus (HCC); Malignant neoplasm metastatic to bone (HCC); Esophageal carcinoma (HCC); Secondary malignant neoplasm of liver (HCC) 06/26/2024 Orders Only [facility] [address] [place] [address] 5 [place] [address] Yakov Yousif MD PhD Malignant neoplasm of lower third of esophagus (HCC) (Primary Dx); Malignant neoplasm metastatic to bone (HCC) from Last 3 Months Immunizations Immunization Administration [...] 08/25/2022 N/A REMOVE TUNNELED LINE 09/22/2022 Left ABDOMINAL SURGERY 2021 Medical History Medical History Date Comments Emphysema, unspecified Hypercholesteremia Hypertension Prostate disease Asthma Sleep apnea wears cpap Esophageal adenocarcinoma (HCC) GERD (gastroesophageal reflux disease) Type 2 diabetes mellitus Pulmonary embolism Obesity DVT (deep venous thrombosis) Rig ht leg Benign prostatic hyperplasia 1999 Mid back pain Low back pain Family History Medical History Relation Name Comments Cancer Father Cristobal Hypertension Father Cristobal Lung cancer Father Cristobal Stroke Maternal Grandfather Lawrence Heart failure Maternal Grandmother Colon cancer Mother Stroke Paternal Grandfather Leroy Heart failure Paternal Grandmother Relation Name Status Comments Father Cristobal Maternal Grandfather Lawrence Maternal Grandmother Mother Paternal Grandfather Leroy Paternal Grandmother Social History Tobacco Use Types Packs/Day Years Used Date Smoking Tobacco: Former Cigarettes 0.1 35 0 07/29/1982 - 07/29/2017 Passive Smoke Exposure: Past Smokeless Tobacco: Never Tobacco Cessation:Counseling Given: Not Answered Alcohol Use Standard Drinks/Week Comments Yes 0 (1 standard drink = 0.6 oz pur e alcohol) 2/week [facility] Utilities Answer Date Recorded In the past [...] week 03/29/2024 How often do you attend [facility] or protestant services? 1 to 4 times per year 03/29/2024 Do you belong to any clubs o r organizations such as christian groups, unions, fraternal or athletic groups, or [...] place to sleep or slept in a fdc (including now)? No 09/02/2022 Housing Stability Vital Sign Answer Jeevan e Recorded In the last 12 months, was t here a time when you were not able to pay the mortgage or rent on time? No 03/29/2024 In the past 12 months, how m any times have you moved where you were living? 0 03/29/2024 At any time in the past 12 m [facility], were you homeless or living in a fdc (including now)? No 03/29/2024 Personal Safety Answer Date Recorded Have you ever been in or are you currently in a harmful physical or emotional relationship or is someone making you feel afraid or unsafe? 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 Obstetrics History Last Filed Vital Signs Vital Sign Reading Time Taken Comments Blood Pressure 112/66 09/18/2024 12:30 PM CDT Pulse 89 09/18/2024 12:30 PM CDT Temperature 36.4 C (97.6 F) 09/18/2024 12:30 PM CDT Respiratory Rate 18 09/18/2024 12:30 PM CDT Oxygen Saturation 95% 09/18/2024 12:30 PM CDT Inhaled Oxygen Concentration - - Weight 84.6 kg (186 lb 8.2 oz) 09/18/2024 12:30 PM CDT Height 177.8 cm (5' 10) 09/17/2024 8:02 AM CDT Body Mass Index 26.76 09/17/2024 8:02 AM CDT Plan of Treatment Health Maintenance Due Date Last Done Comments Colon Cancer Screening-Colonoscopy 1955 Hepatitis C Screening 1955 Prostate Cancer Screening-PSA 1955 Hepatitis B Screening 1974 Well Visit 65+ 2021 Depression Screening 08/20/2023 08/19/2022 Covid-19 Vaccine (2023-2 5 season) 2023 12/02/2022, 04/06/2022, 06/09/2021, Additional history exists Influenza Vaccine (#1) 2024 , 11/04/2022, 11/07/2019, Additional history exists Fall Risk Assessment 03/31/2025 03/31/2024 DTaP/Tdap/Td Vaccine (2 - Td or Tdap) 10/27/2030 10/27/2020 Zoster Vaccine Completed 02/10/2018, 11/16/2017 Pneumococcal vaccine 65+ Completed 023, 03/09/2017, 2016 Abdominal Aortic Aneurysm (A AA) Screen Completed 08/21/2024, 07/24/2024, 05/30/2024, Additional history exists Goals Goal Patient Goal Type Associated Problems Recent Progress Patient-Stated? Author CCM Chronic Pain Care Plan Chronic Care Management No change(08/24 8:50 AM CDT) No Madeleine Johnson, RN Note: Problem: Chronic Pain Goals: 1. Minimize further functional decline 2. Maximize quality of life 3. Control pain Strategies: - Activity/exercise program recommendation - Conservative stepwise pain medicine strategy with multi-disciplinary approach - Recommend healthy lifestyle strategies and compensatory methods as needed Medical Devices Implanted Type Area [employer] Device Identifier Shelf Expiration Date Model / Serial / Lot Vascular Access Power Port N/A: Chest Wall Procedures Procedure Name Priority Date/Time Associated Diagnosis Comments PHOSPHORUS STAT 09/18/2024 12:18 PM CDT Esophageal carcinoma (HCC) Malignant neoplasm metastatic to bone (HCC) Malignant neoplasm of lower third of esophagus (HCC) 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) EGFR STAT 09/18/2024 12:18 PM CDT Esophageal carcinoma (HCC) Malignant neoplasm metastatic to bone (HCC) Malignant neoplasm of lower third of esophagus (HCC) 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) DIFFERENTIAL AUTO Routine 09/18/2024 12:18 PM CDT Esophageal carcinoma (HCC) Malignant neoplasm metastatic to bone (HCC) Malignant neoplasm of lower third of esophagus (HCC) 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) VITAMIN D 25 HYDROXY Routine 09/18/2024 12:18 PM CDT Esophageal carcinoma (HCC) Malignant neoplasm metastatic to bone (HCC) Malignant neoplasm of lower third of esophagus (HCC) 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) CBC WITH AUTO DIFFERENTIAL Routine 09/18/2024 12:18 PM CDT Esophageal carcinoma (HCC) Malignant neoplasm metastatic to bone (HCC) Malignant neoplasm of lower third of esophagus (HCC) 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) COMPREHENSIVE METABOLIC PANEL STAT 09/18/2024 12:18 PM CDT Esophageal carcinoma (HCC) Malignant neoplasm metastatic to bone (HCC) Malignant neoplasm of lower third of esophagus (HCC) 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) MRI THORACIC SPINE WO CONTRAST Schedule Routine, Read Routine (OP Routine) 09/17/2024 8:58 AM CDT Mid back pain 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 DEHYDROGENASE STAT 09/04/2024 10:20 AM CDT Esophageal carcinoma (HCC) Malignant neoplasm metastatic to bone (HCC) Malignant neoplasm of lower third of esophagus (HCC) 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) EGFR STAT 09/04/2024 10:20 AM CDT Esophageal carcinoma (HCC) Malignant neoplasm metastatic to bone (HCC) Malignant neoplasm of lower third of esophagus (HCC) 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) DIFFERENTIAL AUTO Routine 09/04/2024 10:20 AM CDT Esophageal carcinoma (HCC) Malignant neoplasm metastatic to bone (HCC) Malignant neoplasm of lower third of esophagus (HCC) 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) MAGNESIUM Routine 09/04/2024 10:20 AM CDT Malignant neoplasm of lower third of esophagus (HCC) AMYLASE Routine 09/04/2024 10:20 AM CDT Malignant neoplasm of lower third of esophagus (HCC) PHOSPHORUS Routine 09/04/2024 10:20 AM CDT Malignant neoplasm of lower third of esophagus (HCC) LIPASE Routine 09/04/2024 10:20 AM CDT Malignant neoplasm of lower third of esophagus (HCC) CORTISOL Routine 09/04/2024 10:20 AM CDT Malignant neoplasm of lower third of esophagus (HCC) CBC WITH AUTO DIFFERENTIAL Routine 09/04/2024 10:20 AM CDT Esophageal carcinoma (HCC) Malignant neoplasm metastatic to bone (HCC) Malignant neoplasm of lower third of esophagus (HCC) 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) COMPREHENSIVE METABOLIC PANEL STAT 09/04/2024 10:20 AM CDT Esophageal carcinoma (HCC) Malignant neoplasm metastatic to bone (HCC) Malignant neoplasm of lower third of esophagus (HCC) 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) CT CHEST ABDOMEN PELVIS W CONTRAST Schedule MARC, Read MARC (Appt Today, Awaiting Results) 08/21/2024 8:40 AM CDT Malignant neoplasm of lower third of esophagus (HCC) Malignant neoplasm metastatic to bone (HCC) EGFR STAT 08/21/2024 8:09 AM CDT Esophageal carcinoma (HCC) Malignant neoplasm metastatic to bone (HCC) Malignant neoplasm of lower third of esophagus (HCC) 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) DIFFERENTIAL AUTO Routine 08/21/2024 8:0 9 AM CDT Esophageal carcinoma (HCC) Malignant neoplasm metastatic to bone (HCC) Malignant neoplasm of lower third of esophagus (HCC) 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) ACTH Routine 08/21/2024 8:09 AM CDT Malignant neoplasm of lower third of esophagus (HCC) Malignant neoplasm metastatic to bone (HCC) Adrenal insufficiency CORTISOL Routine 08/21/2024 8:09 AM CDT Malignant neoplasm of lower third of esophagus (HCC) Malignant neoplasm metastatic to bone (HCC) Adrenal insufficiency PHOSPHORUS STAT 08/21/2024 8:09 AM CDT Malignant neoplasm of lower third of esophagus (HCC) Malignant neoplasm metastatic to bone (HCC) CBC WITH AUTO DIFFERENTIAL Routine 08/21/2024 8:09 AM CDT Esophageal carcinoma (HCC) Malignant neoplasm metastatic to bone (HCC) Malignant neoplasm of lower third of esophagus (HCC) 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) COMPREHENSIVE METABOLIC PANEL STAT 08/21/2024 8:09 AM CDT Esophageal carcinoma (HCC) Malignant neoplasm metastatic to bone (HCC) Malignant neoplasm of lower third of esophagus (HCC) 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) EGFR STAT 07/24/2024 9:20 AM CDT Malignant neoplasm of lower third of esophagus (HCC) Malignant neoplasm metastatic to bone (HCC) DIFFERENTIAL AUTO Routine 07/24/2024 9:2 0 AM CDT Malignant neoplasm of lower third of esophagus (HCC) Malignant neoplasm metastatic to bone (HCC) CBC WITH AUTO DIFFERENTIAL Routine 07/24/2024 9:20 AM CDT Malignant neoplasm of lower third of esophagus (HCC) Malignant neoplasm metastatic to bone (HCC) COMPREHENSIVE METABOLIC PANEL STAT 07/24/2024 9:20 AM CDT Malignant neoplasm of lower third of esophagus (HCC) Malignant neoplasm metastatic to bone (HCC) PHOSPHORUS STAT 07/24/2024 9:20 AM CDT Malignant neoplasm of lower third of esophagus (HCC) Malignant neoplasm metastatic to bone (HCC) CT CHEST ABDOMEN PELVIS W CONTRAST Schedule MARC, Read MARC (Appt Today, Awaiting Results) 07/24/2024 8:20 AM CDT Malignant neoplasm of lower third of esophagus (HCC) Malignant neoplasm metastatic to bone (HCC) Esophageal carcinoma (HCC) Secondary malignant neoplasm of liver (HCC) PAIN MGMT IMAGING LUMBAR/SACRAL ABLATION BILATERAL Schedule Routine, Read Routine (OP Routine) 07/07/2024 12:16 PM CDT Lumbar spondylosis PET OUTSIDE REFERENCE Routine 06/28/2024 5:[address] BODY OUTSIDE CONSULT Routine 06/27/2024 7:38 PM CDT Diagnosis unknown EGFR STAT 06/26/2024 1:09 PM CDT Malignant neoplasm of lower third of esophagus (HCC) Malignant neoplasm metastatic to bone (HCC) Esophageal carcinoma (HCC) Secondary malignant neoplasm of liver (HCC) VITAMIN D 25 HYDROXY Routine 06/26/2024 1:09 PM CDT Malignant neoplasm of lower third of esophagus (HCC) Malignant neoplasm metastatic to bone (HCC) COMPREHENSIVE METABOLIC PANEL STAT 06/26/2024 1:09 PM CDT Malignant neoplasm of lower third of esophagus (HCC) Malignant neoplasm metastatic to bone (HCC) Esophageal carcinoma (HCC) Secondary malignant neoplasm of liver (HCC) PHOSPHORUS STAT 06/26/2024 1:09 PM CDT Malignant neoplasm of lower third of esophagus (HCC) Malignant neoplasm metastatic to bone (HCC) Esophageal carcinoma (HCC) Secondary malignant neoplasm of liver (HCC) DIFFERENTIAL AUTO Routine 06/26/2024 1:0 7 PM CDT Malignant neoplasm of lower third of esophagus (HCC) Malignant neoplasm metastatic to bone (HCC) Esophageal carcinoma (HCC) Secondary malignant neoplasm of liver (HCC) CBC WITH AUTO DIFFERENTIAL Routine 06/26/2024 1:07 PM CDT Malignant neoplasm of lower third of esophagus (HCC) Malignant neoplasm metastatic to bone (HCC) Esophageal carcinoma (HCC) Secondary malignant neoplasm of liver (HCC) from Last 3 Months Results * eGFR (09/18/2024 12:18 PM CDT) eGFR >90 >=60 mL/min/1. 73 m2 Comment: [...] interpretive data was last reviewed 2020. Blood 09/18/2024 12:1 8 PM CDT 09/18/2024 12:23 PM CDT us Yakov Yousif MD PhD LAB BLOOD ORDERABLES Fin al Result [facility] Department [place] [address] * (ABNORMAL) Differential, auto (09/18/2024 12:18 PM CDT) Neutrophil abs 3.42 1.50 - 6.50 K/cumm Comment:Testing performed by : [facility], [address] [place] [phone] Lymphocyte abs 0.41(L) 0.80 - 3.30 K/cumm [facility] Comment:Testing performed by : [facility], [address] [place] [phone] Monocyte abs 0.07(L) 0.20 - 0.80 K/cumm [facility] Comment:Testing performed by : [facility], [address] [place], [place] [phone] Eosinophil abs 0.01 0.00 - 0.50 K/cumm [facility] Comment:Testing performed by : [facility], [address] [place] [phone] Basophil abs 0.01 0.00 - 0.10 K/cumm [facility] Comment:Testing performed by : [facility], [address] [place] [phone] Neutrophil pct 87.4 % [facility] Comment: Interpretive Data Percent cell count reference ranges are not reported, since discordance with absolute values may lead to misinterpretation of CBC data. Current Interpretive Data was last revised on 2017. Testing performed by: [facility], [address] [place] [phone] Lymphocyte pct 10.5 % [facility] Comment: Interpretive Data Percent cell count reference ranges are not reported, since discordance with absolute values may lead to misinterpretation of CBC data. Current Interpretive Data was last revised on 2017. Testing performed by: [facility], [address] [place] [phone] Monocyte pct 1.7 % [facility] Comment: Interpretive Data Percent cell count reference ranges are not reported, since discordance with absolute values may lead to misinterpretation of CBC data. Current Interpretive Data was last revised on 2017. Testing performed by: [facility], [address] [place] [phone] Eosinophil pct 0.1 % [facility] Comment: Interpretive Data Percent cell count reference ranges are not reported, since discordance with absolute values may lead to misinterpretation of CBC data. Current Interpretive Data was last revised on 2017. Testing performed by: [facility], [address] [place] [phone] Basophil pct 0.3 % [facility] Comment: Interpretive Data Percent cell count reference ranges are not reported, since discordance with absolute values may lead to misinterpretation of CBC data. Current Interpretive Data was last revised on 2017. Testing performed by: [facility], [address] [place] [phone] Blood 09/18/2024 12:1 8 PM CDT 09/18/2024 12:22 PM CDT us Yakov Yousif MD PhD LAB BLOOD ORDERABLES Fin al Result [facility] Department [place] [address] * (ABNORMAL) CBC with auto differential (09/18/2024 12:18 PM CDT) WBC 3.91 3.80 - 9.90 K/cumm Comment:Testing performed by : [facility], [address] [place], [place] [phone] Hgb 10.2(L) 13.0 - 17.5 g/dL [facility] Comment:Testing performed by : [facility], [address] [place], [place] [phone] Hct 29.8(L) 38.9 - 50.3 % [facility] Comment:Testing performed by : [facility], [address] [place], [place] [phone] Plt 178 150 - 400 K/cumm [facility] Comment:Testing performed by : [facility], [address] [place], [place] [phone] MPV 7.3 6.8 - 10.4 fL [facility] Comment:Testing performed by : [facility], [address] [place], [place] [phone] RBC 3.50(L) 4.30 - 5.80 M/cumm [facility] Comment:Testing performed by : [facility], [address] [place], [place] [phone] MCV 85.1 81.3 - 96.4 fL [facility] Comment:Testing performed by : [facility], [address] [place], [place] [phone] MCH 29.0 27.1 - 33.3 pg [facility] Comment:Testing performed by : [facility], [address] [place] [address] MCHC 34.1 32.3 - 35.7 g/dL [facility] Comment:Testing performed by : [facility], [address] [place] [address] RDW CV 16.6(H) 11.1 - 14.9 % [facility] Comment:Testing performed by : [facility], [address] [place] [address] NRBC abs 0.00 0.00 - 0.01 K/cumm [facility] Comment:Testing performed by : [facility], [address] [place] [phone] Blood 09/18/2024 12:1 8 PM CDT 09/18/2024 12:22 PM CDT Yakov Yousif MD PhD LAB BLOOD ORDERABLES Fin al Result Performing Organization Address City/[facility]/ZIP Co de Phone Number [facility] [place] [address] * Vitamin D 25 hydroxy (09/18/2024 12:18 PM CDT) Pathologist [facility] Vitamin D 25-OH 50 30 - 80 ng/mL Blood 09/18/2024 12:1 8 PM CDT 09/18/2024 12:23 PM CDT Yakov Yousif MD PhD LAB BLOOD ORDERABLES Fin al Result Performing Organization Address [facility] Co de Phone Number [facility] [place] [address] * Phosphorus (09/18/2024 12:18 PM CDT) [facility] Phosphorus, pl 2.9 2.3 - 4.5 mg/dL Blood 09/18/2024 12:1 8 PM CDT 09/18/2024 12:23 PM CDT Yakov Yousif MD PhD LAB BLOOD ORDERABLES Fin al Result Performing Organization Address City/[facility] [place] [address] * (ABNORMAL) Comprehensive metabolic panel (09/18/2024 12:18 PM CDT) [facility] Sodium 137 135 - 145 mmol/L Potassium, pl 4.7 3.3 - 4.9 mmol/L [facility] Chloride 105 97 - 110 mmol/L [facility] CO2 23 22 - 32 mmol/L [facility] Anion gap 9 2 - 15 mmol/L [facility] BUN 23 6 - 25 mg/dL [facility] Creatinine 0.92 0.80 - 1.30 mg/dL [facility] Glucose 156 70 - 199 mg/dL [facility] Comment: Interpretive Data Fasting glucose >/= 126 [...] 2022. Calcium 8.7 8.5 - 10.3 mg/dL [facility] Bilirubin, total 0.2 0.1 - 1.2 mg/dL [facility] Protein, pl 6.4(L) 6.5 - 8.5 g/dL [facility] Albumin 3.7 3.5 - 5.0 g/dL [facility] Alk phos 64 40 - 130 Units/L [facility] ALT 23 7 - 55 Units/L [facility] AST 19 10 - 50 Units/L [facility] Blood 09/18/2024 12:1 8 PM CDT 09/18/2024 12:23 PM CDT us Yakov Yousif MD PhD LAB BLOOD ORDERABLES Fin al Result [facility] Department [place] [address] * MRI Thoracic Spine WO Contrast (09/17/2024 8:58 AM CDT) Anatomical Region Laterality Modality Spine N/A Magnetic Resonan ce 09/18/2024 9:20 AM CDT Impressions 09/18/2024 5:37 PM CDT 1. Grossly unchanged T1/T2 hypointense lesion in the T12 vertebral body consistent with treated metastatic disease. 2. Minimal multilevel degenerative changes of thoracic spine. Dictated by: Brittny Moore M.D. The radiology attending physician has personally reviewed this study, and had reviewed and/or edited this written report and agrees with it. 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 COMPARISON: CT chest abdomen pelvis dated 08/21/2024, MRI lumbar spine dated 05/28/2022. FINDINGS: Redemonstrated T1/T2 hypointense lesion within the inferior left aspect of the T12 vertebral body, appears grossly unchanged compared to 2022 lumbar spine MRI. There is intrinsic T1 hyperintense marrow signal in the T8-T12 vertebral bodies, reflective of prior radiation treatment. The alignment of the thoracic spine is normal. There are no compression fractures. The spinal cord demonstrates normal signal intensity on all sequences. Intervertebral disks have normal height and signal intensity. The disks are normal in configuration. There is mild multilevel facet arthropathy. There is no neuroforaminal stenosis. There is no spinal canal stenosis. 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 COMPARISON: CT chest abdomen pelvis dated 08/21/2024, MRI lumbar spine dated 05/28/2022. FINDINGS: Redemonstrated T1/T2 hypointense lesion within the inferior left aspect of the T12 vertebral body, appears grossly unchanged compared to 2022 lumbar spine MRI. There is intrinsic T1 hyperintense marrow signal in the T8-T12 vertebral bodies, reflective of prior radiation treatment. The alignment of the thoracic spine is normal. There are no compression fractures. The spinal cord demonstrates normal signal intensity on all sequences. Intervertebral disks have normal height and signal intensity. The disks are normal in configuration. There is mild multilevel facet arthropathy. There is no neuroforaminal stenosis. There is no spinal canal stenosis. IMPRESSION: 1. Grossly unchanged T1/T2 hypointense lesion in the T12 vertebral body consistent with treated metastatic disease. 2. Minimal multilevel degenerative changes of thoracic spine. Dictated by: Brittny Moore M.D. The radiology attending physician has personally reviewed this study, and had reviewed and/or edited this written report and agrees with it. Electronically signed by: Simon Mahoney MD us Keisha Jose MD IMG MRI PROCEDURES Final Re sult * eGFR (09/04/2024 10:20 AM CDT) eGFR 90 >=60 mL/min/1. 73 m2 Comment: Interpretive Data [...] interpretive data was last reviewed 2020. Blood 09/04/2024 10:2 0 AM CDT 09/04/2024 10:33 AM CDT us Yakov Yousif MD PhD LAB BLOOD ORDERABLES Fin al Result LOLI [facility] Department [place] [address] * (ABNORMAL) Differential, auto (09/04/2024 10:20 AM CDT) Neutrophil abs 2.98 1.50 - 6.50 K/cumm Comment:Testing performed by : [facility], [address] [place] [phone] Lymphocyte abs 0.56(L) 0.80 - 3.30 K/cumm [facility]ER [facility] Comment:Testing performed by : [facility], [address] [place] [phone] Monocyte abs 0.35 0.20 - 0.80 K/cumm CERAMANDA DE SANTIAGO Comment:Testing performed by : [facility], [address] [place] [phone] Eosinophil abs 0.06 0.00 - 0.50 K/cumm [facility]DA [facility] Comment:Testing performed by : [facility], [address] [place] [phone] Basophil abs 0.05 0.00 - 0.10 K/cumm [facility] Comment:Testing performed by : [facility], [address] [place] [phone] Neutrophil pct 74.5 % CERNER BJ Comment: Interpretive Data Percent cell count reference ranges are not reported, since discordance with absolute values may lead to misinterpretation of CBC data. Current Interpretive Data was last revised on 2017. Testing performed by: [facility], [address] [place] [phone] Lymphocyte pct 14.1 % CERNER BJ Comment: Interpretive Data Percent cell count reference ranges are not reported, since discordance with absolute values may lead to misinterpretation of CBC data. Current Interpretive Data was last revised on 2017. Testing performed by: [facility], [address] [place] [phone] Monocyte pct 8.7 % CERNER BJ Comment: Interpretive Data Percent cell count reference ranges are not reported, since discordance with absolute values may lead to misinterpretation of CBC data. Current Interpretive Data was last revised on 2017. Testing performed by: [facility], [address] [place] [phone] Eosinophil pct 1.6 % LOLI DE SANT[facility]AGO Comment: Interpretive Data Percent cell count reference ranges are not reported, since discordance with absolute values may lead to misinterpretation of CBC data. Current Interpretive Data was last revised on 2017. Testing performed by: [facility], [address] [place] [phone] Basophil pct 1.2 % LOLI DE [facility] Comment: Interpretive Data Percent cell count reference ranges are not reported, since discordance with absolute values may lead to misinterpretation of CBC data. Current Interpretive Data was last revised on 2017. Testing performed by: [facility], [address] [place] [address] Blood 09/04/2024 10:2 0 AM CDT 09/04/2024 10:28 AM CDT us Yakov Yousif MD PhD LAB BLOOD ORDERABLES Fin al Result LOLI [facility] Department [place] [address] * (ABNORMAL) CBC with auto differential (09/04/2024 10:20 AM CDT) WBC 4.01 3.80 - 9.90 K/cumm Comment:Testing performed by : [facility], [address] [place] [address] Hgb 10.8(L) 13.0 - 17.5 g/dL LOLI MCCARTY Comment:Testing performed by : [facility], [address] [place] [address] Hct 31.9(L) 38.9 - 50.3 % LOLI MCCARTY Comment:Testing performed by : [facility], [address] [place] [address] Plt 209 150 - 400 K/cumm LOLI DE SANTIAGO Comment:Testing performed by : [facility], [address] [place] [address] MPV 7.7 6.8 - 10.4 fL LOLI DE SANTIAGO Comment:Testing performed by : [facility], [address] [place], [place] [phone] RBC 3.73(L) 4.30 - 5.80 M/cumm LOLI DE SANTIAGO Comment:Testing performed by : [facility], [address] [place], [place] [phone] MCV 85.3 81.3 - 96.4 fL LOLI DE SANTIAGO Comment:Testing performed by : [facility], [address] [place], [place] [phone] MCH 28.8 27.1 - 33.3 pg LOLI DE SANTIAGO Comment:Testing performed by : [facility], [address] [place], [place] [phone] MCHC 33.8 32.3 - 35.7 g/dL LOLI DE SANTIAGO Comment:Testing performed by : [facility], [address] [place] [address] RDW CV 15.9(H) 11.1 - 14.9 % LOLI [facility] Comment:Testing performed by : [facility], [address] [place], [place] [phone] NRBC abs 0.00 0.00 - 0.01 K/cumm LOLI [facility] Comment:Testing performed by : [facility], [address] [place] [address] Blood 09/04/2024 10:2 0 AM CDT 09/04/2024 10:28 AM CDT us Yakov Yousif MD PhD LAB BLOOD ORDERABLES Fin al Result LOLI DE SANTIAG[facility] Department [place] [address] * Phosphorus (09/04/2024 10:20 AM CDT) Phosphorus, pl 3.5 2.3 - 4.5 mg/dL Blood 09/04/2024 10:2 0 AM CDT 09/04/2024 10:33 AM CDT Yakov Yousif MD PhD LAB BLOOD ORDERABLES Fin al Result Performing Organization Address [facility] de Phone Number [facility] [place] [address] * Magnesium (09/04/2024 10:20 AM CDT) [facility] Magnesium 2.2 1.4 - 2.5 mg/dL Blood 09/04/2024 10:2 0 AM CDT 09/04/2024 10:33 AM CDT Yakov Yousif MD PhD LAB BLOOD ORDERABLES Fin al Result Performing Organization Address [facility] de Phone Number [facility] [place] [address] * Lipase (09/04/2024 10:20 AM CDT) [facility] Lipase 50 10 - 99 Units/L Blood 09/04/2024 10:2 0 AM CDT 09/04/2024 10:33 AM CDT Yakov Yousif MD PhD LAB BLOOD ORDERABLES Fin al Result Performing Organization Address [facility] de Phone Number [facility] [place] [address] * Lactate dehydrogenase (LD) (09/04/2024 10:20 AM CDT) [facility] Lactate dehydrogenase (LDH) 161 100 - 250 Units/L Blood 09/04/2024 10:2 0 AM CDT 09/04/2024 10:33 AM CDT Yakov Yousif MD PhD LAB BLOOD ORDERABLES Fin al Result Performing Organization Address [facility] de Phone Number [facility] Department [place] [address] * Cortisol (09/04/2024 10:20 AM CDT) [facility] Cortisol 10.9 4.8 - 19.5 mcg/dL Comment: Interpretive Data: Morning hours 6-10 a.m. 4.8 - 19.5 mcg/dL Afternoon hours 4-8 p.m. 2.5 - 11.9 mcg/dL This analyte undergoes marked diurnal variation. Current interpretive data was last revised 23. Blood 09/04/2024 10:2 0 AM CDT 09/04/2024 10:33 AM CDT Yakov Yousif MD PhD LAB BLOOD ORDERABLES Fin al Result Performing Organization Address [facility] de Phone Number [facility] Department [place] [address] * Amylase (09/04/2024 10:20 AM CDT) [facility] Amylase 60 30 - 99 Units/L Blood 09/04/2024 10:2 0 AM CDT 09/04/2024 10:33 AM CDT Yakov Yousif MD PhD LAB BLOOD ORDERABLES Fin al Result Performing Organization Address [facility] de Phone Number [facility] [place] [address] * Comprehensive metabolic panel (09/04/2024 10:20 AM CDT) [facility] Sodium 137 135 - 145 mmol/L Potassium, pl 4.4 3.3 - 4.9 mmol/L [facility] Chloride 104 97 - 110 mmol/L [facility] CO2 25 22 - 32 mmol/L [facility] Anion gap 8 2 - 15 mmol/L [facility] BUN 25 6 - 25 mg/dL [facility] Creatinine 0.93 0.80 - 1.30 mg/dL [facility] Glucose 118 70 - 199 mg/dL [facility] Comment: Interpretive Data Fasting glucose >/= 126 [...] 2022. Calcium 8.9 8.5 - 10.3 mg/dL [facility] Bilirubin, total 0.2 0.1 - 1.2 mg/dL [facility] Protein, pl 6.6 6.5 - 8.5 g/dL [facility] Albumin 3.8 3.5 - 5.0 g/dL [facility] Alk phos 60 40 - 130 Units/L [facility] ALT 19 7 - 55 Units/L [facility] AST 20 10 - 50 Units/L [facility] Blood 09/04/2024 10:2 0 AM CDT 09/04/2024 10:33 AM CDT us Yakov Yousif MD PhD LAB BLOOD ORDERABLES Fin al Result [facility] Department [place] [address] * CT chest abdomen pelvis with contrast (08/21/2024 8:40 AM CDT) Anatomical Region Laterality Modality Body N/A Computed Tomogra phy 08/21/2024 9:04 AM CDT Impressions 08/21/2024 9:04 AM CDT 1. No substantial change in a right hilar mass with increasing surrounding post treatment changes. Unchanged adjacent nodular septal line thickening which could represent or venous obstruction or lymphangitic carcinomatosis. 2. Mild increase in a bilateral adrenal metastases. 3. Unchanged osseous metastatic disease. Electronically signed by: Gareth Cleaning M.D. Narrative 08/21/2024 9:04 AM CDT EXAMINATION: CT chest, abdomen, and pelvis with intravenous contrast. 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 TECHNIQUE: Computed tomographic images of the chest, abdomen and pelvis were obtained after administration of 68 mL of Optiray 350 intravenous contrast per standard protocol. COMPARISON:07/24/2024 FINDINGS: CHEST: No supraclavicular, axillary, mediastinal lymphadenopathy. The heart size is normal without pericardial effusion. Three-vessel coronary artery calcifications are present. Right internal jugular central venous port catheter has tip at superior cavoatrial junction. Unchanged right hilar lymphadenopathy/conglomerate mass measuring up to 4.4 x 4.8 cm which narrows the right upper bronchus, and right upper, middle, and lower lobe pulmonary arteries.. Unchanged soft tissue thickening tracking along the right hilar bronchovascular structures the level of the ibeth. Increasing surrounding post treatment changes as evidenced by architectural distortion and groundglass opacities, likely posttreatment change. An area of nodularity within the peripheral right upper lobe measuring up to 1.8 cm is unchanged, likely scarring. Additional areas of nodular septal line thickening extending from the mass or stable. There is obstruction of the small bronchioles distally with associated atelectasis. No pneumothorax or pleural effusion. ABDOMEN/PELVIS: Diffuse hepatic steatosis. No suspicious focal liver lesions. No suspicious focal liver lesions. Distended gallbladder. No bile duct dilatation. Pancreas and spleen are normal. Enlarging bilateral adrenal masses. For reference, right adrenal mass measures 3.5 x 5.4 cm, previously 3 x 4.7 cm. Left adrenal mass measures 3.6 x 5.4 cm, previously 3.3 x 5.1 cm. The right adrenal mass abuts the right kidney and posterior right hemiliver in the left adrenal mass involves the left diaphragmatic abilio, but the celiac trunk and abuts and probably superficially invades the upper pole the left kidney. The kidneys enhance symmetrically without hydronephrosis. Nonobstructing tiny punctate bilateral nephrolithiasis. Circumferential bladder wall thickening with upper limits normal prostate size, likely chronic bladder outlet obstruction. No free intraperitoneal fluid or gas. The bowel is normal in caliber without intestinal obstruction. There is colonic diverticulosis without evidence of acute diverticulitis. A small hiatal hernia is present. Extensive vascular calcifications. No abdominal, retroperitoneal, or pelvic lymphadenopathy. No substantial change in sclerotic osseous metastases in the axial skeleton as well as additional proximal right humerus metastasis. Procedure Note Gareth Cleaning MD - 08/21/2024 EXAMINATION: CT chest, abdomen, and pelvis with intravenous contrast. 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 TECHNIQUE: Computed tomographic images of the chest, abdomen and pelvis were obtained after administration of 68 mL of Optiray 350 intravenous contrast per standard protocol. COMPARISON:07/24/2024 FINDINGS: CHEST: No supraclavicular, axillary, mediastinal lymphadenopathy. The heart size is normal without pericardial effusion. Three-vessel coronary artery calcifications are present. Right internal jugular central venous port catheter has tip at superior cavoatrial junction. Unchanged right hilar lymphadenopathy/conglomerate mass measuring up to 4.4 x 4.8 cm which narrows the right upper bronchus, and right upper, middle, and lower lobe pulmonary arteries.. Unchanged soft tissue thickening tracking along the right hilar bronchovascular structures the level of the ibeth. Increasing surrounding post treatment changes as evidenced by architectural distortion and groundglass opacities, likely posttreatment change. An area of nodularity within the peripheral right upper lobe measuring up to 1.8 cm is unchanged, likely scarring. Additional areas of nodular septal line thickening extending from the mass or stable. There is obstruction of the small bronchioles distally with associated atelectasis. No pneumothorax or pleural effusion. ABDOMEN/PELVIS: Diffuse hepatic steatosis. No suspicious focal liver lesions. No suspicious focal liver lesions. Distended gallbladder. No bile duct dilatation. Pancreas and spleen are normal. Enlarging bilateral adrenal masses. For reference, right adrenal mass measures 3.5 x 5.4 cm, previously 3 x 4.7 cm. Left adrenal mass measures 3.6 x 5.4 cm, previously 3.3 x 5.1 cm. The right adrenal mass abuts the right kidney and posterior right hemiliver in the left adrenal mass involves the left diaphragmatic abilio, but the celiac trunk and abuts and probably superficially invades the upper pole the left kidney. The kidneys enhance symmetrically without hydronephrosis. Nonobstructing tiny punctate bilateral nephrolithiasis. Circumferential bladder wall thickening with upper limits normal prostate size, likely chronic bladder outlet obstruction. No free intraperitoneal fluid or gas. The bowel is normal in caliber without intestinal obstruction. There is colonic diverticulosis without evidence of acute diverticulitis. A small hiatal hernia is present. Extensive vascular calcifications. No abdominal, retroperitoneal, or pelvic lymphadenopathy. No substantial change in sclerotic osseous metastases in the axial skeleton as well as additional proximal right humerus metastasis. IMPRESSION: 1. No substantial change in a right hilar mass with increasing surrounding post treatment changes. Unchanged adjacent nodular septal line thickening which could represent or venous obstruction or lymphangitic carcinomatosis. 2. Mild increase in a bilateral adrenal metastases. 3. Unchanged osseous metastatic disease. Electronically signed by: Gareth Cleaning M.D. Yakov Yousif MD PhD IMG CT PROCEDURES Final Result * eGFR (08/21/2024 8:09 AM CDT) eGFR 86 >=60 mL/min/1. 73 m2 Comment: Interpretive Data [...] interpretive data was last reviewed 2020. Blood 08/21/2024 8:09 AM CDT 08/21/2024 8:16 AM CDT Yakov Yousif MD PhD LAB BLOOD ORDERABLES Fin al Result [facility] Department [place] [address] * (ABNORMAL) Differential, auto (08/21/2024 8:09 AM CDT) Neutrophil abs 3.43 1.50 - 6.50 K/cumm Comment:Testing performed by : [facility], [address] [place], [place] [phone] Lymphocyte abs 0.66(L) 0.80 - 3.30 K/cumm CERNER BJ Comment:Testing performed by : [facility], [address] [place] [phone] Monocyte abs 0.62 0.20 - 0.80 K/cumm CERNER BJ Comment:Testing performed by : [facility], [address] [place], [place] [phone] Eosinophil abs 0.13 0.00 - 0.50 K/cumm CERNER BJ Comment:Testing performed by : [facility], [address] [place] [phone] Basophil abs 0.03 0.00 - 0.10 K/cumm CERNER BJ Comment:Testing performed by : [facility], [address] [place] [phone] Neutrophil pct 70.6 % CERNER BJ Comment: Interpretive Data Percent cell count reference ranges are not reported, since discordance with absolute values may lead to misinterpretation of CBC data. Current Interpretive Data was last revised on 2017. Testing performed by: [facility], [address] [place] [phone] Lymphocyte pct 13.5 % CERNER BJ Comment: Interpretive Data Percent cell count reference ranges are not reported, since discordance with absolute values may lead to misinterpretation of CBC data. Current Interpretive Data was last revised on 2017. Testing performed by: [facility], [address] [place] [phone] Monocyte pct 12.7 % CERNER BJ Comment: Interpretive Data Percent cell count reference ranges are not reported, since discordance with absolute values may lead to misinterpretation of CBC data. Current Interpretive Data was last revised on 2017. Testing performed by: [facility], [address] [place] [phone] Eosinophil pct 2.6 % LOLI DE SANTIAGO Comment: Interpretive Data Percent cell count reference ranges are not reported, since discordance with absolute values may lead to misinterpretation of CBC data. Current Interpretive Data was last revised on 2017. Testing performed by: [facility], [address] [place] [phone] Basophil pct 0.6 % LOLI DE SANTIAGO Comment: Interpretive Data Percent cell count reference ranges are not reported, since discordance with absolute values may lead to misinterpretation of CBC data. Current Interpretive Data was last revised on 2017. Testing performed by: [facility], [address] [place] [phone] Blood 08/21/2024 8:09 AM CDT 08/21/2024 8:11 AM CDT us Yakov Yousif MD PhD LAB BLOOD ORDERABLES Fin al Result LOLI [facility] S[facility] Department [place] [address] * (ABNORMAL) CBC with auto differential (08/21/2024 8:09 AM CDT) WBC 4.85 3.80 - 9.90 K/cumm Comment:Testing performed by : [facility], [address] [place] [phone] Hgb 11.6(L) 13.0 - 17.5 g/dL LOLI DE SANTIAGO Comment:Testing performed by : [facility], [address] [place] [phone] Hct 35.4(L) 38.9 - 50.3 % LOLI DE SANTIAGO Comment:Testing performed by : [facility], [address] [place] [address] Plt 239 150 - 400 K/cumm CERNER BJ Comment:Testing performed by : [facility], [address] [place] [address] MPV 7.6 6.8 - 10.4 fL CERNER BJ Comment:Testing performed by : [facility], [address] [place] [address] RBC 4.10(L) 4.30 - 5.80 M/cumm CERNER BJ Comment:Testing performed by : [facility], [address] [place] [address] MCV 86.1 81.3 - 96.4 fL CERAMANDA BJ Comment:Testing performed by : [facility], [address] [place], [place] [phone] MCH 28.4 27.1 - 33.3 pg [facility]ER [facility] Comment:Testing performed by : [facility], [address] [place] [address] MCHC 32.9 32.3 - 35.7 g/dL CERNER BJ Comment:Testing performed by : [facility], [address] [place] [address] RDW CV 16.2(H) 11.1 - 14.9 % CERNER [facility] Comment:Testing performed by : [facility], [address] [place] [address] NRBC abs 0.00 0.00 - 0.01 K/cumm CERNER [facility] Comment:Testing performed by : [facility], [address] [place] [address] Blood 08/21/2024 8:09 AM CDT 08/21/2024 8:11 AM CDT us Yakov Yousif MD PhD LAB BLOOD ORDERABLES Fin al Result [facility] Department [place] [address] * (ABNORMAL) ACTH (08/21/2024 8:09 AM CDT) ACTH 207.0(H) 7.0 - 63.0 pg/mL Blood 08/21/2024 8:09 AM CDT 08/22/2024 8:24 AM CDT Yakov Yousif MD PhD LAB BLOOD ORDERABLES Fin al Result Performing Organization Address [facility] de Phone Number [facility] [place] [address] * Phosphorus (08/21/2024 8:09 AM CDT) Pathologist [facility] Phosphorus, pl 3.4 2.3 - 4.5 mg/dL Blood 08/21/2024 8:09 AM CDT 08/21/2024 8:16 AM CDT Yakov Yousif MD PhD LAB BLOOD ORDERABLES Fin al Result Performing Organization Address [facility] de Phone Number [facility] [place] [address] * Cortisol (08/21/2024 8:09 AM CDT) Cortisol 12.0 4.8 - 19.5 mcg/dL Comment: Interpretive Data: Morning hours 6-10 a.m. 4.8 - 19.5 mcg/dL Afternoon hours 4-8 p.m. 2.5 - 11.9 mcg/dL This analyte undergoes marked diurnal variation. Current interpretive data was last revised 23. Blood 08/21/2024 8:09 AM CDT 08/21/2024 8:16 AM CDT Yakov Yousif MD PhD LAB BLOOD ORDERABLES Fin al Result Performing Organization Address [facility] de Phone Number [facility] [place] [address] * Comprehensive metabolic panel (08/21/2024 8:09 AM CDT) Sodium 139 135 - 145 mmol/L Potassium, pl 3.8 3.3 - 4.9 mmol/L [facility] Chloride 106 97 - 110 mmol/L [facility] CO2 25 22 - 32 mmol/L [facility] Anion gap 8 2 - 15 mmol/L [facility] BUN 22 6 - 25 mg/dL [facility] Creatinine 0.97 0.80 - 1.30 mg/dL [facility] Glucose 95 70 - 199 mg/dL [facility] Comment: Interpretive Data Fasting glucose >/= 126 [...] 2022. Calcium 8.9 8.5 - 10.3 mg/dL [facility] Bilirubin, total 0.3 0.1 - 1.2 mg/dL [facility] Protein, pl 6.9 6.5 - 8.5 g/dL [facility] Albumin 3.9 3.5 - 5.0 g/dL [facility] Alk phos 50 40 - 130 Units/L [facility] ALT 16 7 - 55 Units/L [facility] AST 21 10 - 50 Units/L [facility] Blood 08/21/2024 8:09 AM CDT 08/21/2024 8:16 AM CDT us Yakov Yousif MD PhD LAB BLOOD ORDERABLES Fin al Result [facility] Department [place] [address] * eGFR (07/24/2024 9:20 AM CDT) Pathologist [facility] eGFR 83 >=60 mL/min/1. 73 m2 Comment: Interpretive Data [...] interpretive data was last reviewed 2020. Blood 07/24/2024 9:20 AM CDT 07/24/2024 9:28 AM CDT us Yakov Yousif MD PhD LAB BLOOD ORDERABLES Fin al Result LOLI DE SANTIAGO [facility] Department [place] [address] * (ABNORMAL) Differential, auto (07/24/2024 9:20 AM CDT) Pathologist [facility] Neutrophil abs 5.17 1.50 - 6.50 K/cumm Comment:Testing performed by : [facility], [address] [place] [phone] Lymphocyte abs 0.71(L) 0.80 - 3.30 K/cumm LOLI DE SANTIAGO Comment:Testing performed by : [facility], [address] [place] [phone] Monocyte abs 0.42 0.20 - 0.80 K/cumm LOLI DE SANTIAGO Comment:Testing performed by : [facility], [address] [place] [phone] Eosinophil abs 0.05 0.00 - 0.50 K/cumm [facility] Comment:Testing performed by : [facility], [address] [place] [phone] Basophil abs 0.03 0.00 - 0.10 K/cumm [facility] Comment:Testing performed by : [facility], [address] [place], [place] [phone] Neutrophil pct 81.1 % [facility] Comment: Interpretive Data Percent cell count reference ranges are not reported, since discordance with absolute values may lead to misinterpretation of CBC data. Current Interpretive Data was last revised on 2017. Testing performed by: [facility], [address] [place] [address] Lymphocyte pct 11.2 % [facility] Comment: Interpretive Data Percent cell count reference ranges are not reported, since discordance with absolute values may lead to misinterpretation of CBC data. Current Interpretive Data was last revised on 2017. Testing performed by: [facility], [address] [place] [phone] Monocyte pct 6.6 % [facility] Comment: Interpretive Data Percent cell count reference ranges are not reported, since discordance with absolute values may lead to misinterpretation of CBC data. Current Interpretive Data was last revised on 2017. Testing performed by: [facility], [address] [place] [phone] Eosinophil pct 0.8 % [facility] Comment: Interpretive Data Percent cell count reference ranges are not reported, since discordance with absolute values may lead to misinterpretation of CBC data. Current Interpretive Data was last revised on 2017. Testing performed by: [facility], [address] [place] [phone] Basophil pct 0.4 % [facility] Comment: Interpretive Data Percent cell count reference ranges are not reported, since discordance with absolute values may lead to misinterpretation of CBC data. Current Interpretive Data was last revised on 2017. Testing performed by: [facility], [address] [place] [address] Blood 07/24/2024 9:20 AM CDT 07/24/2024 9:21 AM CDT us Yakov Yousif MD PhD LAB BLOOD ORDERABLES Fin al Result [facility] Department [place] [address] * (ABNORMAL) CBC with auto differential (07/24/2024 9:20 AM CDT) WBC 6.38 3.80 - 9.90 K/cumm Comment:Testing performed by : [facility], [address] [place] [address] Hgb 11.8(L) 13.0 - 17.5 g/dL CERAMANDA [facility] Comment:Testing performed by : [facility], [address] [place] [address] Hct 35.1(L) 38.9 - 50.3 % CERAMANDA [facility] Comment:Testing performed by : [facility], [address] [place] [address] Plt 232 150 - 400 K/cumm CERAMANDA [facility]J Comment:Testing performed by : [facility], [address] [place] [address] MPV 7.4 6.8 - 10.4 fL CERAMANDA [facility]J Comment:Testing performed by : [facility], [address] [place] [address] RBC 4.10(L) 4.30 - 5.80 M/cumm CERAMANDA [facility] Comment:Testing performed by : [facility], [address] [place] [address] MCV 85.6 81.3 - 96.4 fL CERAMANDA [facility] Comment:Testing performed by : [facility], [address] [place] [address] MCH 28.7 27.1 - 33.3 pg CERAMANDA [facility] Comment:Testing performed by : [facility], [address] [place] [phone] MCHC 33.5 32.3 - 35.7 g/dL LOLI [facility] Comment:Testing performed by : [facility], [address] [place], [place] [phone] RDW CV 17.0(H) 11.1 - 14.9 % LOLI [facility] Comment:Testing performed by : [facility], [address] [place] [phone] NRBC abs 0.00 0.00 - 0.01 K/cumm LOLI [facility] Comment:Testing performed by : [facility], [address] [place] [phone] Blood 07/24/2024 9:20 AM CDT 07/24/2024 9:21 AM CDT Yakov Yousif MD PhD LAB BLOOD ORDERABLES Fin al Result Performing Organization Address City/[facility]/ZIP Co de Phone Number [facility] Department [place] [place] [address] * Phosphorus (07/24/2024 9:20 AM CDT) [facility] Phosphorus, pl 3.1 2.3 - 4.5 mg/dL Blood 07/24/2024 9:20 AM CDT 07/24/2024 9:28 AM CDT Yakov Yousif MD PhD LAB BLOOD ORDERABLES Fin al Result [facility] [place] [address] * (ABNORMAL) Comprehensive metabolic panel (07/24/2024 9:20 AM CDT) [facility] Sodium 137 135 - 145 mmol/L Potassium, pl 4.2 3.3 - 4.9 mmol/L [facility] Chloride 104 97 - 110 mmol/L [facility] CO2 25 22 - 32 mmol/L [facility] Anion gap 8 2 - 15 mmol/L [facility] BUN 26(H) 6 - 25 mg/dL [facility] Creatinine 0.99 0.80 - 1.30 mg/dL [facility] Glucose 98 70 - 199 mg/dL [facility] Comment: Interpretive Data Fasting glucose >/= 126 [...] 2022. Calcium 8.8 8.5 - 10.3 mg/dL [facility] Bilirubin, total 0.3 0.1 - 1.2 mg/dL [facility] Protein, pl 6.5 6.5 - 8.5 g/dL [facility] Albumin 3.9 3.5 - 5.0 g/dL [facility] Alk phos 52 40 - 130 Units/L [facility] ALT 17 7 - 55 Units/L [facility] AST 18 10 - 50 Units/L [facility] Blood 07/24/2024 9:20 AM CDT 07/24/2024 9:28 AM CDT us Yakov Yousif MD PhD LAB BLOOD ORDERABLES Fin al Result [facility] Department [place] [address] * CT chest abdomen pelvis with contrast (07/24/2024 8:20 AM CDT) Anatomical Region Laterality Modality Body N/A Computed Tomogra phy 07/24/2024 9:08 AM CDT Impressions 07/25/2024 1:34 PM CDT 1. Increase in in size of a right suprahilar known malignancy, given increased vascular and bronchial narrowing. Stable adjacent septal thickening which may represent edema in the setting of venous obstruction versus lymphangitic carcinomatosis. 2. Evolving postradiation changes about the right suprahilar mass. 3. No significant interval change in size of bilateral adrenal gland masses. 4. No significant change in multifocal osseous metastatic disease. Dictated by: Chris Rowan MD The radiology attending physician has personally reviewed this study, and had reviewed and/or edited this written report and agrees with it. Electronically signed by: Anjel Olivares M.D. Narrative 07/25/2024 1:34 PM CDT EXAMINATION: Computed tomography of the chest, abdomen and pelvis with intravenous contrast HISTORY: Metastatic esophageal cancer status post radiation to the right lung completed March 2024. Assess treatment response. TECHNIQUE: Transaxial computed tomographic images of the chest, abdomen and pelvis were obtained with intravenous contrast according to the standard protocol after the uneventful administration of 71 mL Opti-Ray 350 intravenous contrast. COMPARISON: Outside hospital CT dated 05/30/2024. FINDINGS: Chest: No supraclavicular or axillary lymphadenopathy. Increase in size of a irregular right perihilar mass measuring 4.9 x 4.4 cm, previously 4.3 x 4.1 cm, with increased narrowing of the right bronchovascular structures including the right superior pulmonary vein and a right upper lobe/interlobular pulmonary artery as well as the right upper lobe bronchus. Extension along the right bronchovascular structures into the mediastinum is unchanged. Stable nodularity along the superior right upper lobe and superior segment of the right lower lobe and surrounding the right suprahilar mass, likely postradiation change. Additional areas of nodular septal line thickening surrounding the right suprahilar mass are unchanged. More peripheral nodularity is also essentially unchanged and is obscured by post radiation findings. Mild subsegmental atelectasis within the left lung base. No pneumothorax or pleural effusion. Heart size is normal without pericardial effusion. Moderate coronary calcifications. Right chest port catheter terminates in the in the superior vena cava. Thoracic aorta is normal in caliber. Abdomen/Pelvis: Diffuse hepatic steatosis. No suspicious hepatic lesion. Portal and hepatic veins are patent. No biliary ductal dilation. The gallbladder, spleen, and pancreas are normal. No significant change in size of a right adrenal gland mass measuring 4.7 x 3.0 cm, previously 4.8 x 2.7 cm. This is unchanged in size of a left adrenal gland mass measuring 5.1 x 3.3 cm, previously 5.0 x 3.3 cm. The left adrenal gland mass is again noted to abut the left diaphragmatic abilio. The kidneys enhance symmetrically without hydronephrosis. Nonobstructing 3 mm left lower midpole renal stone. The urinary bladder is normal. No bowel thickening or obstruction. Small duodenal diverticulum. No free fluid or intraperitoneal free air. No abdominal lymphadenopathy. Normal aorta is normal in caliber with atherosclerotic calcifications of the aorta and its branches. Small fat-containing umbilical hernia. No suspicious interval change in distribution or size of widespread osseous metastatic disease to the axial and appendicular spine. Procedure Note Anjel Olivares MD - 07/25/2024 EXAMINATION: Computed tomography of the chest, abdomen and pelvis with intravenous contrast HISTORY: Metastatic esophageal cancer status post radiation to the right lung completed March 2024. Assess treatment response. TECHNIQUE: Transaxial computed tomographic images of the chest, abdomen and pelvis were obtained with intravenous contrast according to the standard protocol after the uneventful administration of 71 mL Opti-Ray 350 intravenous contrast. COMPARISON: Outside hospital CT dated 05/30/2024. FINDINGS: Chest: No supraclavicular or axillary lymphadenopathy. Increase in size of a irregular right perihilar mass measuring 4.9 x 4.4 cm, previously 4.3 x 4.1 cm, with increased narrowing of the right bronchovascular structures including the right superior pulmonary vein and a right upper lobe/interlobular pulmonary artery as well as the right upper lobe bronchus. Extension along the right bronchovascular structures into the mediastinum is unchanged. Stable nodularity along the superior right upper lobe and superior segment of the right lower lobe and surrounding the right suprahilar mass, likely postradiation change. Additional areas of nodular septal line thickening surrounding the right suprahilar mass are unchanged. More peripheral nodularity is also essentially unchanged and is obscured by post radiation findings. Mild subsegmental atelectasis within the left lung base. No pneumothorax or pleural effusion. Heart size is normal without pericardial effusion. Moderate coronary calcifications. Right chest port catheter terminates in the in the superior vena cava. Thoracic aorta is normal in caliber. Abdomen/Pelvis: Diffuse hepatic steatosis. No suspicious hepatic lesion. Portal and hepatic veins are patent. No biliary ductal dilation. The gallbladder, spleen, and pancreas are normal. No significant change in size of a right adrenal gland mass measuring 4.7 x 3.0 cm, previously 4.8 x 2.7 cm. This is unchanged in size of a left adrenal gland mass measuring 5.1 x 3.3 cm, previously 5.0 x 3.3 cm. The left adrenal gland mass is again noted to abut the left diaphragmatic abilio. The kidneys enhance symmetrically without hydronephrosis. Nonobstructing 3 mm left lower midpole renal stone. The urinary bladder is normal. No bowel thickening or obstruction. Small duodenal diverticulum. No free fluid or intraperitoneal free air. No abdominal lymphadenopathy. Normal aorta is normal in caliber with atherosclerotic calcifications of the aorta and its branches. Small fat-containing umbilical hernia. No suspicious interval change in distribution or size of widespread osseous metastatic disease to the axial and appendicular spine. IMPRESSION: 1. Increase in in size of a right suprahilar known malignancy, given increased vascular and bronchial narrowing. Stable adjacent septal thickening which may represent edema in the setting of venous obstruction versus lymphangitic carcinomatosis. 2. Evolving postradiation changes about the right suprahilar mass. 3. No significant interval change in size of bilateral adrenal gland masses. 4. No significant change in multifocal osseous metastatic disease. Dictated by: Chris Rowan MD The radiology attending physician has personally reviewed this study, and had reviewed and/or edited this written report and agrees with it. Electronically signed by: Anjel Olivares M.D. us Yakov Yousif MD PhD IMG CT PROCEDURES Final Result * Imaging Lumbar/Sacral Medial Branch RFA Bilateral ([id number]) (07/07/2024 12:16 PM CDT) Narrative [facility] - 07/07/2024 12:16 PM CDT The images from this study are not interpreted by Radiology. Please refer to the physician's procedure / OR operative note. us Jhon Urias MD G PAIN MGMT PROCEDURES Final Result [facility] * PET Outside Reference (06/28/2024 5:16 PM CDT) Impressions [facility] - 06/28/2024 5:16 PM CDT These images are for Reference purposes only and have not been reviewed by [facility] Radiology. There will be no report generated by a [facility] Radiologist. Narrative [facility] - 06/28/2024 5:16 PM CDT EXAMINATION: Images For Reference Purposes Only us Yakov Yousif MD PhD IMG PET PROCEDURES Final Result [facility] * CT Body Outside Consult (06/27/2024 7:38 PM CDT) Anatomical Region Laterality Modality Body N/A Computed Tomogra phy 06/28/2024 8:38 AM CDT Impressions 06/28/2024 8:38 AM CDT 1. Mild decrease in size of right suprahilar known malignancy. Adjacent septal line thickening may represent edema versus phobias obstruction versus lymphangitic carcinomatosis and is slightly improved. 2. Evolving post radiation changes about the right suprahilar mass which partially obscures the previously known peripheral nodularity. 3. Enlarging the bilateral adrenal metastases and unchanged multifocal osseous metastatic disease. The findings, conclusions and recommendations within this report do not replace the initial findings, conclusions and recommendations made at the facility where the study was performed based upon the imaging and clinical condition at that time. Comparison with the prior report and clinical history is necessary. The provided images may or may not represent the [place] source data set and thus may contain changes that may lower the accuracy of this second-opinion interpretation. Electronically signed by: Gareth Cleaning M.D. Narrative 06/28/2024 8:38 AM CDT EXAMINATION: RADIOLOGY CONSULTATION ON OUTSIDE IMAGING STUDY STUDY INITIALLY PERFORMED: 05/30/2024 at [facility]. TYPE OF STUDY: Multiple CT images of the chest, abdomen, and pelvis with intravenous contrast are provided at the time of this interpretation. CONTRAST ROUTE: Contrast was administered via the intravenous route. The protocol was adequate to address the clinical question. The outside final report was available at the time of this second opinion interpretation. TYPE OF CONSULTATION: Consult on outside imaging study with images submitted through Outside Image Sharing Service DATE OF CONSULTATION: 06/28/2024 8:26 AM HISTORY: 68-year-old male with esophageal cancer COMPARISON: 03/28/2024 FINDINGS: CHEST: No supraclavicular or axillary lymphadenopathy. Mild improvement in suprahilar mass now measuring 2.6 x 3.3 cm, previously 4.1 x 4.6 cm when measured similarly. Improved narrowing of the associated bronchovascular structures including the right superior pulmonary vein and a right upper lobe/interlobar pulmonary artery. Extension along the right bronchovascular structures into the mediastinum. Heart size is normal without pericardial effusion. There are coronary artery calcifications. Right internal jugular central venous port catheter has tip at the superior cavoatrial junction. New nodularity within the superior segment of the right lower lobe and surrounding the right suprahilar mass, likely post radiation change. Mildly improved additional areas of nodular septal line thickening surrounding the right suprahilar mass compatible with lymphangitic carcinomatosis. More peripheral nodularity is not substantially changed although some of it is obscured by the post radiation findings. Mild subsegmental atelectasis at the left lung base. No pneumothorax or pleural effusion. ABDOMEN/PELVIS: Diffuse hepatic steatosis.. No suspicious focal liver lesions. Normal size gallbladder without bile duct dilatation. Pancreas and spleen are normal. Bilateral adrenal masses have increased in size. The right adrenal mass measures 2.7 x 4.8 cm, previously 2.8 x 4.2 cm. The left adrenal mass measures 3.3 x 5 cm, previously 3.2 x 4.2 cm. However, the heart anteriorly more hypoattenuating. The left adrenal mass abuts the left diaphragmatic abilio. Kidneys enhance symmetrically without hydronephrosis. Punctate left nephrolithiasis. Mild bladder wall thickening with mild prostatomegaly, findings of chronic bladder outlet obstruction. No free intraperitoneal fluid or gas. Normal caliber bowel without intestinal obstruction. Oral contrast to the level of the distal ileum. Appendix not visualized. Periampullary duodenal diverticulum is present. There are extensive vascular calcifications with normal caliber abdominal aorta. No abdominal, retroperitoneal, or pelvic lymphadenopathy. No substantial change in distribution or size of widespread osseous metastatic disease throughout the axial and appendicular skeleton. Procedure Note Gareth Cleaning MD - 06/28/2024 EXAMINATION: RADIOLOGY CONSULTATION ON OUTSIDE IMAGING STUDY STUDY INITIALLY PERFORMED: [facility] [place] TYPE OF STUDY: Multiple CT images of the chest, abdomen, and pelvis with intravenous contrast are provided at the time of this interpretation. CONTRAST ROUTE: Contrast was administered via the intravenous route. The protocol was adequate to address the clinical question. The outside final report was available at the time of this second opinion interpretation. TYPE OF CONSULTATION: Consult on outside imaging study with images submitted through Outside Image Sharing Service DATE OF CONSULTATION: 06/28/2024 8:26 AM HISTORY: 68-year-old male with esophageal cancer COMPARISON: 03/28/2024 FINDINGS: CHEST: No supraclavicular or axillary lymphadenopathy. Mild improvement in suprahilar mass now measuring 2.6 x 3.3 cm, previously 4.1 x 4.6 cm when measured similarly. Improved narrowing of the associated bronchovascular structures including the right superior pulmonary vein and a right upper lobe/interlobar pulmonary artery. Extension along the right bronchovascular structures into the mediastinum. Heart size is normal without pericardial effusion. There are coronary artery calcifications. Right internal jugular central venous port catheter has tip at the superior cavoatrial junction. New nodularity within the superior segment of the right lower lobe and surrounding the right suprahilar mass, likely post radiation change. Mildly improved additional areas of nodular septal line thickening surrounding the right suprahilar mass compatible with lymphangitic carcinomatosis. More peripheral nodularity is not substantially changed although some of it is obscured by the post radiation findings. Mild subsegmental atelectasis at the left lung base. No pneumothorax or pleural effusion. ABDOMEN/PELVIS: Diffuse hepatic steatosis.. No suspicious focal liver lesions. Normal size gallbladder without bile duct dilatation. Pancreas and spleen are normal. Bilateral adrenal masses have increased in size. The right adrenal mass measures 2.7 x 4.8 cm, previously 2.8 x 4.2 cm. The left adrenal mass measures 3.3 x 5 cm, previously 3.2 x 4.2 cm. However, the heart anteriorly more hypoattenuating. The left adrenal mass abuts the left diaphragmatic abilio. Kidneys enhance symmetrically without hydronephrosis. Punctate left nephrolithiasis. Mild bladder wall thickening with mild prostatomegaly, findings of chronic bladder outlet obstruction. No free intraperitoneal fluid or gas. Normal caliber bowel without intestinal obstruction. Oral contrast to the level of the distal ileum. Appendix not visualized. Periampullary duodenal diverticulum is present. There are extensive vascular calcifications with normal caliber abdominal aorta. No abdominal, retroperitoneal, or pelvic lymphadenopathy. No substantial change in distribution or size of widespread osseous metastatic disease throughout the axial and appendicular skeleton. IMPRESSION: 1. Mild decrease in size of right suprahilar known malignancy. Adjacent septal line thickening may represent edema versus phobias obstruction versus lymphangitic carcinomatosis and is slightly improved. 2. Evolving post radiation changes about the right suprahilar mass which partially obscures the previously known peripheral nodularity. 3. Enlarging the bilateral adrenal metastases and unchanged multifocal osseous metastatic disease. The findings, conclusions and recommendations within this report do not replace the initial findings, conclusions and recommendations made at the facility where the study was performed based upon the imaging and clinical condition at that time. Comparison with the prior report and clinical history is necessary. The provided images may or may not represent the [place] source data set and thus may contain changes that may lower the accuracy of this second-opinion interpretation. Electronically signed by: Gareth Cleaning M.D. Yakov Yousif MD PhD IMG CT PROCEDURES Final Result * eGFR (06/26/2024 1:09 PM CDT) eGFR 89 >=60 mL/min/1. 73 m2 Comment: Interpretive Data [...] interpretive data was last reviewed 2020. Blood 06/26/2024 1:09 PM CDT 06/26/2024 1:13 PM CDT Yakov Yousif MD PhD LAB BLOOD ORDERABLES Fin al Result Performing Organization Address City/[facility] Co de Phone Number [facility] [place] [address] * (ABNORMAL) Vitamin D 25 hydroxy (06/26/2024 1:09 PM CDT) Pathologist [facility] Vitamin D 25-OH 28(L) 30 - 80 ng/mL Blood 06/26/2024 1:09 PM CDT 06/26/2024 1:13 PM CDT Yakov Yousif MD PhD LAB BLOOD ORDERABLES Fin al Result Performing Organization Address [facility] de Phone Number [facility] [place] [address] * Phosphorus (06/26/2024 1:09 PM CDT) Pathologist [facility] Phosphorus, pl 3.2 2.3 - 4.5 mg/dL Blood 06/26/2024 1:09 PM CDT 06/26/2024 1:13 PM CDT Yakov Yousif MD PhD LAB BLOOD ORDERABLES Fin al Result Performing Organization Address [facility] de Phone Number [facility] [place] [address] * Comprehensive metabolic panel (06/26/2024 1:09 PM CDT) Pathologist [facility] Sodium 141 135 - 145 mmol/L Potassium, pl 4.1 3.3 - 4.9 mmol/L [facility] Chloride 109 97 - 110 mmol/L [facility] CO2 24 22 - 32 mmol/L [facility] Anion gap 8 2 - 15 mmol/L [facility] BUN 19 6 - 25 mg/dL [facility] Creatinine 0.94 0.80 - 1.30 mg/dL [facility] Glucose 141 70 - 199 mg/dL [facility] Comment: Interpretive Data Fasting glucose >/= 126 [...] interpretive data was last revised 2022. Calcium 8.6 8.5 - 10.3 mg/dL [facility] Bilirubin, total 0.2 0.1 - 1.2 mg/dL [facility] Protein, pl 6.5 6.5 - 8.5 g/dL [facility] Albumin 3.7 3.5 - 5.0 g/dL [facility] Alk phos 61 40 - 130 Units/L [facility] ALT 19 7 - 55 Units/L [facility] AST 18 10 - 50 Units/L [facility] Blood 06/26/2024 1:09 PM CDT 06/26/2024 1:13 PM CDT us Yakov Yousif MD PhD LAB BLOOD ORDERABLES Fin al Result [facility] Department [place] [address] * Differential, auto (06/26/2024 1:07 PM CDT) Neutrophil abs 3.54 1.50 - 6.50 K/cumm Comment:Testing performed by : [facility], [address] [place] [phone] Lymphocyte abs 0.80 0.80 - 3.30 K/cumm [facility] Comment:Testing performed by : [facility], [address] [place] [phone] Monocyte abs 0.31 0.20 - 0.80 K/cumm [facility] Comment:Testing performed by : [facility], [address] [place] [phone] Eosinophil abs 0.01 0.00 - 0.50 K/cumm [facility] Comment:Testing performed by : [facility], [address] [place] [phone] Basophil abs 0.03 0.00 - 0.10 K/cumm [facility] Comment:Testing performed by : [facility], [address] [place] [phone] Neutrophil pct 75.3 % [facility] Comment: Interpretive Data Percent cell count reference ranges are not reported, since discordance with absolute values may lead to misinterpretation of CBC data. Current Interpretive Data was last revised on 2017. Testing performed by: [facility], [address] [place] [phone] Lymphocyte pct 17.0 % [facility] Comment: Interpretive Data Percent cell count reference ranges are not reported, since discordance with absolute values may lead to misinterpretation of CBC data. Current Interpretive Data was last revised on 2017. Testing performed by: [facility], [address] [place] [phone] Monocyte pct 6.7 % [facility] Comment: Interpretive Data Percent cell count reference ranges are not reported, since discordance with absolute values may lead to misinterpretation of CBC data. Current Interpretive Data was last revised on 2017. Testing performed by: [facility], [address] [place] [phone] Eosinophil pct 0.3 % [facility] Comment: Interpretive Data Percent cell count reference ranges are not reported, since discordance with absolute values may lead to misinterpretation of CBC data. Current Interpretive Data was last revised on 2017. Testing performed by: [facility], [address] [place] [phone] Basophil pct 0.7 % [facility] Comment: Interpretive Data Percent cell count reference ranges are not reported, since discordance with absolute values may lead to misinterpretation of CBC data. Current Interpretive Data was last revised on 2017. Testing performed by: [facility], [address] [place] [phone] Blood 06/26/2024 1:07 PM CDT 06/26/2024 1:11 PM CDT us Yakov Yousif MD PhD LAB BLOOD ORDERABLES Fin al Result [facility] Department [place] [address] * (ABNORMAL) CBC with auto differential (06/26/2024 1:07 PM CDT) WBC 4.70 3.80 - 9.90 K/cumm Comment:Testing performed by : [facility], [address] [place] [phone] Hgb 11.3(L) 13.0 - 17.5 g/dL [facility] Comment:Testing performed by : [facility], [address] [place] [address] Hct 33.1(L) 38.9 - 50.3 % [facility] Comment:Testing performed by : [facility], [address] [place] [phone] Plt 208 150 - 400 K/cumm [facility] Comment:Testing performed by : [facility], [address] [place] [address] MPV 7.9 6.8 - 10.4 fL [facility] Comment:Testing performed by : [facility], [address] [place] [address] RBC 3.92(L) 4.30 - 5.80 M/cumm [facility] Comment:Testing performed by : [facility], [address] [place], [place] [phone] MCV 84.4 81.3 - 96.4 fL [facility] Comment:Testing performed by : [facility], [address] [place], [place] [phone] MCH 28.8 27.1 - 33.3 pg [facility] Comment:Testing performed by : [facility], [address] [place], [place] [phone] MCHC 34.2 32.3 - 35.7 g/dL [facility] Comment:Testing performed by : [facility], [address] [place], [place] [phone] RDW CV 18.7(H) 11.1 - 14.9 % [facility] Comment:Testing performed by : [facility], [address] [place], [place] [phone] NRBC abs 0.00 0.00 - 0.01 K/cumm [facility] Comment:Testing performed by : [facility], [address] [place], [place] [phone] Blood 06/26/2024 1:07 PM CDT 06/26/2024 1:11 PM CDT us Yakov Yousif MD PhD LAB BLOOD ORDERABLES Fin al Result Performing Organization Address City/State/[facility] Co de Phone Number [facility] Department [place] [address] from Last 3 Months Insurance MEDICARE COMM[employer]CIAL GENERIC DEIDRE Patel [id number] DEIDRE PATEL [id number] MEDICARE [employer]CIAL GENERIC DEIDRE Patel [id number] Advance Directives For more information, please contact: [phone] Documents on File Type Date Recorded Patient Tc Operator Expl anation ADVANCE DIRECTIVE 05/29/2022 4:23 PM Nabil Monson and DPOA * Full Code (Latest Code [...] 11:38 AM 09/06/2022 5:42 PM Care Teams Airline Operations Agent Relationship Specialty Start Date End Date Chris Rondon MD [address] [place] [address] [phone] PCP - General Family Medicine 12/08/23 Carlos Paz MD [address] [place] [address] [phone] Surgeon General Surgery 03/22/19 David Rehman MD [address] [phone] Surgeon Gastroenterology 05/23/19 Mae Recinos MD [address] [address] Radiation Oncologist Radiation Oncology 12/30/20 Areli Cordon MD [address] [place] [address] [phone] Consulting Physician Pulmonary Disease 01/23/22 Kevin Flynn MD [address] [place] [address] [phone] Consulting Physician Medical Oncology 05/14/22 Yakov Yousif MD PhD [address] [place] [id number] Medical Oncologist/Truck Caterer Medical Oncology 02/23/23
[2024-09-24] MEDS: LACTATED RINGERS 600 ML 999 ML IV CONT (20:51)
[2024-09-24] MEDS: LACTATED RINGERS 1,000 ML 999 ML IV CONT ×2 (20:51)
[2024-09-24 20:58] LABS: Thyroid Stimulating Hormone Reflex 1.170 uIU/mL (0.465-4.68)
[2024-09-24 20:59] LABS: Creatine Kinase 166 U/L (55-170); Uric Acid 5.0 mg/dL (3.5-8.5)
[2024-09-24 21:02] LABS: INR 1.2; Prothrombin Time 15.0 Seconds (11.1-14.7)
[2024-09-24 21:03] LABS: Partial Thromboplastin Time 35.8 Seconds (22.3-36.8)
[2024-09-24 21:21] LABS: Influenza A QL RT-PCR Negative (Negative); Influenza B QL RT-PCR Negative (Negative); SARS-CoV-2 RNA PCR Negative (Negative)
[2024-09-24 21:33] LABS: CRP 32.1 mg/dL (<1.0)
[2024-09-24] MEDS: oxyCODONE HCL (*CRX) 5 MG TAB IR PO (21:39)
[2024-09-24] MEDS: VANCOMYCIN 1,250 MG/NS 250 ML 1,250 MG/250 ML BAG 166.67 MG IVPB (21:41)
[2024-09-24] MEDS: VANCOMYCIN HCL 1,000 MG in SODIUM CHLORIDE 0.9% IV 250 ML 250 MG IVPB (21:41)
[2024-09-25] VITALS (10 sets, daily range): BP systolic 106–120; BP diastolic 63–71; PULSE 74–101; RESP 15–22; TEMP 37.3–37.5; O2SAT 94–97
== END 2024-09-25 02:40 | disposition short-term general hospital (02) ==
PROVIDERS: Emergency Provider Student in an Organized Health Care Education/Training Program; PCP Family Medicine
DX: E27.2 Addisonian crisis (principal); J18.9 Pneumonia, unspecified organism; R65.20 Severe sepsis without septic shock; R50.9 Fever, unspecified; C15.9 Malignant neoplasm of esophagus, unspecified; C79.51 Secondary malignant neoplasm of bone; C77.9 Secondary and unspecified malignant neoplasm of lymph node, unspecified; C79.72 Secondary malignant neoplasm of left adrenal gland; C79.71 Secondary malignant neoplasm of right adrenal gland; Z20.822 Contact with and (suspected) exposure to COVID-19; I10 Essential (primary) hypertension; E78.2 Mixed hyperlipidemia; E11.9 Type 2 diabetes mellitus without complications; N40.1 Benign prostatic hyperplasia with lower urinary tract symptoms; R35.1 Nocturia; G47.33 Obstructive sleep apnea (adult) (pediatric); M19.032 Primary osteoarthritis, left wrist; Z87.891 Personal history of nicotine dependence; Z86.718 Personal history of other venous thrombosis and embolism; Z79.60 Long term (current) use of unspecified immunomodulators and immunosuppressants; Z79.01 Long term (current) use of anticoagulants; Z79.899 Other long term (current) drug therapy; R00.0 Tachycardia, unspecified; I49.3 Ventricular premature depolarization
CPT/HCPCS: 36415; 51702; 70450; 71250; 74176; 80053; 81001; 82024; 82550; 83605; 83615; 84100; 84443; 84550; 85025; 85610; 85730; 86140; 87040; 87086; 87636; 93005; 96365; 96366; 96367; 96375; 99285; A9270; J0692; J1720; J3373; J7050; J7120